=== PATIENT | female | born 1955 | race Caucasian/White ===

== ENCOUNTER 2021-12-20 10:22 | Emergency (ER) | payer MEDICARE, MEDICAID, SELFPAY ==
[2021-12-20 10:36] VITALS: BP 168/94; PULSE 70; RESP 16; TEMP 36.7; O2SAT 94; BMI 37.0
[2021-12-20 10:49] VITALS: BP 168/94; PULSE 67; RESP 16; O2SAT 95
--- NOTE | 2021-12-20 10:49 | XR_ITS ---
WS: [id number] XR ribs LT mn 3V w CXR1V [id number] REASON FOR EXAM: fall FINDINGS: Minimally displaced anterolateral fracture of the left eighth rib. No left pneumothorax or pleural effusion. XR/XR ribs LT mn 3V w CXR1V [id number] IMPRESSION: Left rib fracture as above.
--- NOTE | 2021-12-20 10:49 | XR_ITS ---
WS: [id number] XR foot LT min 3V* [id number] REASON FOR EXAM: fall FINDINGS: No acute fracture or focal bone lesion. Joint spaces intact without dislocation. Changes of osteoarthritis in the forefoot. No significant bony or joint abnormality in the mid or hindfoot. Moderate anterior plantar calcaneal enthesophyte. XR/XR foot LT min 3V* [id number] IMPRESSION: No acute abnormality.
--- NOTE | 2021-12-20 10:49 | W.ED.FALL ---
HPI - Fall General: Chief Complaint: Fall Stated Complaint: Fell down, rt side pain in rib area and rt foot Time Seen by Provider: 12/20/21 10:38 History of Present Illness: Patient presents here with complaints of left rib pain and left big toe pain after a fall that occurred a week and a half ago when she tripped. Patient says just not feeling better. Patient has no other complaints of pain. Associated symptoms-after fall: Denies abdominal pain, chest pain or headache(s) Review of Systems Const: Denies: fever(s), chills or body aches Eyes: Denies: eye discomfort ENMT: Denies: throat pain Card: Denies: chest pain Resp: Denies: dyspnea GI: Denies: abdominal pain, nausea or vomiting Musc: Reports: joint pain and other (Rib pain) Skin/Breast: Denies: rash Neuro: Denies: headache(s) Psych: Denies: depression or suicidal ideation Physical Exam Const: COMMON NORMALS: no acute distress, patient oriented x3 and alert HENMT: COMMON NORMALS: normocephalic and external ears normal HEAD & SCALP: normocephalic EXTERNAL EAR: Yes external ears normal Eye: COMMON NORMALS: EOMs intact bilaterally Neck/C-Spine: COMMON NORMALS: no JVD Chest: OTHER: Tenderness to left rib cage up near the axilla anterior aspect no bruising swelling noted Resp: COMMON NORMALS: normal respiratory effort and No use of accessory muscles Cardio: COMMON NORMALS: no JVD GI: INSPECTION: Yes normal to inspection Extremity: COMMON NORMALS: normal to inspection and full ROM LEFT LOWER EXTREMITY: Yes foot & digits (Tenderness to left #1 metatarsal joint. No swelling bruising noted) Neuro: COMMON NORMALS: patient oriented x3 SENSORIUM/ORIENTATION: Yes alert Psych: COMMON NORMALS: mental status grossly normal Skin: COMMON NORMALS: no rashes or lesions noted GENERAL SKIN EXAM: no rashes or lesions noted Course Vital Signs: Vital signs: Vital Signs Temperature 98.1 F 12/20/21 10:36 Pulse Rate 69 12/20/21 11:37 Respiratory Rate 16 12/20/21 11:37 Blood Pressure 157/86 12/20/21 11:37 Pulse Oximetry 95 12/20/21 11:37 MDM - Fall Medical Decision Making Left rib contusion and left big toe sprain sustained in a fall last week. Radiology studies show mimimally displaced rib 8th fracture. I tried x 3 to call pt, she does not have voicemail set up,. She did not brass pickler call. Lab Data Radiology Impressions Foot X-Ray 12/20/21 10:49 IMPRESSION: No acute abnormality. Ribs X-Ray 12/20/21 10:49 IMPRESSION: Left rib fracture as above. Discharge Plan Discharge Patient Disposition: Home Clinical Impression: Contusion of rib on left side, Sprain of toe, great, left Closed rib fracture Qualifiers: Encounter type: initial encounter Rib fracture type: single rib Laterality: left Qualified Code(s): S22.32XA - Fracture of one rib, left side, initial encounter for closed fracture Condition: Stable Prescriptions: New Celebrex 100 mg capsule 100 mg PO BID Qty: 20 0RF Discharge Orders: Discharge ED (Routine); Ordered 12/20/21 Ordered By: Mukul Mora Discharge Diet: Usual diet Discharge Activity: Increase activity as tolerated Patient Instructions: Rib Fracture (ED) Activity Restrictions/Additional Instructions: Follow-up with medical provider as directed. Take medications as prescribed. Return to the ER or your medical provider if condition worsens. Please read and understand discharge instructions. If any questions ask please. Coding Level of Care Code ED Chenille Machine Operator for Irena Fwtrisha Exam Comprehensive
[2021-12-20 11:37] VITALS: BP 157/86; PULSE 69; RESP 16; O2SAT 95
== END 2021-12-20 11:35 | disposition home or self-care (01) ==
PROVIDERS: Emergency Provider Nurse Practitioner Family
DX: S22.32XA Fracture of one rib, left side, initial encounter for closed fracture (principal); S20.212A Contusion of left front wall of thorax, initial encounter; S93.502A Unspecified sprain of left great toe, initial encounter; W01.0XXA Fall on same level from slipping, tripping and stumbling without subsequent striking against object, initial encounter
CPT/HCPCS: 71101; 73630; 99282

== ENCOUNTER → 2022-05-26 14:07 | Outpatient (BNVA) | payer MEDICARE, MEDICAID, SELFPAY | PROVIDERS: PCP Nurse Practitioner Family; Visit Provider Internal Medicine Cardiovascular Disease | DX: I25.118 Atherosclerotic heart disease of native coronary artery with other forms of angina pectoris (principal); I10 Essential (primary) hypertension; E78.5 Hyperlipidemia, unspecified; R60.9 Edema, unspecified; R06.02 Shortness of breath; Z87.891 Personal history of nicotine dependence; I25.2 Old myocardial infarction; R94.31 Abnormal electrocardiogram [ECG] [EKG] | CPT/HCPCS: 80048; 83880; 93005; 99204; 99205 ==

== ENCOUNTER 2022-06-18 09:43 | Outpatient (CLI) | payer MEDICARE, MEDICAID, SELFPAY ==
--- NOTE | 2022-06-18 10:47 | XR_ITS ---
WS: [id number] XR lumbar spine f/e only [id number] REASON FOR EXAM: VERTEBROGENIC LOW BACK PAIN FINDINGS: Relatively normal lordosis of the lumbar spine. No vertebral body compression or other focal vertebral body lesion. Narrowing of the intervertebral disc spaces L3-S1. Neutral anterolisthesis of L3 in relation to L4 of 3 mm. No significant change with flexion and exten jerry. Significant degenerative change in the facet joints L3-S1. XR/XR lumbar spine f/e only [id number] IMPRESSION: Degenerative spondylosis as above.
== END 2022-06-18 09:44 | disposition home or self-care (01) ==
LOC: RAD 09:45
PROVIDERS: PCP Nurse Practitioner Family; Visit Provider Nurse Practitioner
DX: M54.51 Vertebrogenic low back pain (principal); M47.896 Other spondylosis, lumbar region
CPT/HCPCS: 72120

== ENCOUNTER 2022-07-18 16:42 | Emergency (ER) | payer MEDICARE, MEDICAID, SELFPAY ==
[2022-07-18] VITALS (7 sets, daily range): BP systolic 118–161; BP diastolic 61–65; PULSE 66–84; RESP 15–22; TEMP 36.8–36.9; O2SAT 87–95; BMI 37.2
--- NOTE | 2022-07-18 17:06 | XRR_ITS ---
PROCEDURE INFORMATION: Exam: XR Chest Exam date and time: 07/18/2022 5:25 PM Age: 66 years old Clinical indication: Chest wall pain; Additional info: Chest pain TECHNIQUE: Imaging protocol: Radiologic exam of the chest. Views: 1 view. COMPARISON: CR XR ribs LT mn 3V w CXR1V [id number] 12/20/2021 10:57 AM FINDINGS: Lungs: Unremarkable. No consolidation. Pleural spaces: Unremarkable. No pleural effusion. No pneumothorax. Heart/Mediastinum: Unremarkable. No cardiomegaly. Bones/joints: Unremarkable. XR/XR chest 1V portable [id number] IMPRESSION: No acute findings.
--- NOTE | 2022-07-18 17:06 | ECG_ITS ---
[facility] Test Date: 2022-07-18 Pat Name: Katie Andrews Department: Room: Gender: Female Junior Manufacturing Engineer: : 1955 Requested By: Mik Kearney Order Number: [id number] Dunia MD: Gilbert Maldonado M.D. Measurements Intervals [place] Rate: 66 P: 32 MS: 138 QRS: 17 QRSD: 78 T: 43 QT: 410 QTc: 430 Interpretive Statements SINUS RHYTHM ANTEROSEPTAL MYOCARDIAL INFARCTION , PROBABLY OLD [40+ ms Q WAVE IN V1-V4] No previous ECG available for comparison Electronically Signed On 07-20-2022 22:03:09 CDT by Gilbert Maldonado M.D. [email or web address]/[id number]
--- NOTE | 2022-07-18 17:28 | W.ED.CHESTPA ---
HPI - Chest Pain General: Chief Complaint: Chest Pain Stated Complaint: Chest Pain Time Seen by Provider: 07/18/22 17:13 History of Present Illness: Patient is a 66-year-old female comes to the ED with chest pain. Patient has a history of hypertension, dyslipidemia, COPD and prior NM about a year ago and a cardiac stent was placed. Patient is not on any home oxygen. Symptoms started initially while at rest 3:00 this morning. She states the chest pain resolved on its own. Then in the early afternoon she developed chest pain while she was sitting outside and drinking a beer. She took a nitro around 1400 today and improve the chest pain a little bit, so she took another nitro at 1500 and her chest pain is now currently a 4 out of 10. She describes it as an aching in the center of her chest. She also endorses having some shortness of breath. Patient saw telegraphic typewriter repairer Dr. Archer on May 26, 2022 and has an outpatient appointment to get a cardiac stress test done on July 28. Associated symptoms: Reports dyspnea; Deny abdominal pain, fever(s), nausea, palpitations or vomiting Review of Systems Const: Denies: fever(s), chills or fatigue Eyes: Denies: change in vision or eye discomfort ENMT: Denies: throat pain, odynophagia, nasal discharge or nasal congestion Card: Reports: chest pain; Denies: palpitations, edema, swelling of feet/ankles, dyspnea on exertion or orthopnea Resp: Reports: dyspnea; Denies: productive cough or non-productive cough GI: Denies: abdominal pain, nausea, vomiting, diarrhea, constipation or hematochezia : Denies: flank pain, dysuria or hematuria Musc: Denies: neck pain, back pain or extremity swelling Skin/Breast: Denies: rash or new lesions Neuro: Denies: headache(s), numbness in extremities or weakness in extremities PFS ED PFSH: Medical History CAD (coronary artery disease) COPD (chronic obstructive pulmonary disease) Hypertension Peripheral edema Surgical History History of PTCA Family History Father CAD (coronary artery disease), Onset Age: 46 NM Cancer Dementia Diabetes Mother CAD (coronary artery disease), Onset Age: 82 Diabetes Denies family history of Clotting disorder Chronic kidney disease (CKD) Suicide Anesthesia complication Bleeding disorder Lung disease Stroke Social History Smoking and tobacco status: former smoker Alcohol intake: former Physical Exam Const: COMMON NORMALS: patient oriented x3 and alert GENERAL APPEARANCE: cooperative HENMT: COMMON NORMALS: normocephalic HEAD & SCALP: normocephalic MOUTH: Normal oral and palatal mucosa present THROAT: posterior oropharynx normal and uvula midline Neck/C-Spine: COMMON NORMALS: supple GENERAL: Yes normal visual inspection Resp: COMMON NORMALS: normal respiratory effort, No retractions and No use of accessory muscles AUSCULTATION: wheezes expiratory wheezes and throughout Cardio: COMMON NORMALS: regular rate, regular rhythm, S1 normal heart sound present, S2 normal heart sound present, No gallops present (Cardio), No clicks present (Cardio), No murmurs present (Cardio) and Peripheral pulses 2+ throughout RATE: regular rate RHYTHM: regular rhythm HEART SOUNDS: S1 normal heart sound present and S2 normal heart sound present PERIPHERAL PULSES: Peripheral pulses 2+ throughout GI: COMMON NORMALS: Normal to inspection, nondistended, normoactive bowel sounds present, Soft to palpation, non-tender and no masses PALPATION: Yes Soft to palpation : COMMON NORMALS: Yes no CVA tenderness BLADDER/KIDNEY EXAM: Yes no CVA tenderness Back/Pelvis: COMMON NORMALS: no CVA tenderness Extremity: COMMON NORMALS: normal to inspection NARRATIVE EXTREMITY EXAM: Bilateral lower extremities?trace edema noted. Neuro: COMMON NORMALS: patient oriented x3 SENSORIUM/ORIENTATION: Yes alert GAIT: Yes Normal gait present Skin: GENERAL SKIN EXAM: dry skin Course ED course: After patient received IV morphine, her chest pain had completely resolved. She had no other reoccurring chest pain here in the ED. Vital Signs: Vital signs: Vital Signs Temperature 98.2 F 07/18/22 22:39 Pulse Rate 66 07/18/22 22:39 Respiratory Rate 16 07/18/22 22:39 Blood Pressure 118/61 07/18/22 22:39 Pulse Oximetry 94 07/18/22 22:39 Oxygen Delivery Me thod 07/18/22 22:20 Oxygen Flow Rate 2 07/18/22 22:20 MDM - Chest Pain Medical Decision Making Patient is a 66-year-old female comes to the ED with chest pain. Patient has a history of hypertension, dyslipidemia, COPD and prior NM about a year ago and a cardiac stent was placed. Patient is not on any home oxygen. Symptoms started initially while at rest 3:00 this morning. She states the chest pain resolved on its own. Then in the early afternoon she developed chest pain while she was sitting outside and drinking a beer. She took a nitro around 1400 today and improve the chest pain a little bit, so she took another nitro at 1500 and her chest pain is now currently a 4 out of 10. Patient was on 2 L of O2 via nasal cannula and her O2 sat was at 95%. Rest of her vitals were stable. Wheezing throughout lung cameron bilaterally. Trace edema lower extremities bilaterally. Rest of her exam is benign. White blood cell count of 14.4, baseline troponin 14 and 2-hour troponin was 13.9 giving a -0.09 delta. BNP of 1432. D-dimer of 0.4. The rest of her labs are unremarkable. EKG showed no ST segment elevation or depression seen. Chest x-ray showed no acute findings. She was given a dose of Solu-Medrol Lasix and DuoNeb breathing treatment here in the ED. Patient has a heart score of 4. After patient received IV morphine, her chest pain had completely resolved. She had no other reoccurring chest pain here in the ED. Home O2 eval was performed by respiratory therapy and she qualified for 2 L of oxygen via nasal cannula continuously. I placed an order with home to get patient set up with oxygen before discharge. I discussed case with Dr. Bush and he agreed with plan of care and dispo home. Patient diagnosed with chest pain and COPD with hypoxia. She has a scheduled outpatient cardiac stress test on July 28. She was given strict return to ED precautions if she has any reoccurring chest pain. Patient understood and agreed with plan. Lab Data I reviewed the patient's lab results. : 07/18/22 18:05 07/18/22 18:05 Radiology Impressions Chest X-Ray 07/18/22 17:06 IMPRESSION: No acute findings. Laboratory Results WBC 14.4 10^3/uL (4.0-10.0) H 07/18/22 18:05 RBC 3.82 10^6/uL (4.1-5.3) L 07/18/22 18:05 Hgb 11.8 g/dL (11.5-15.3) 07/18/22 18:05 Hct 36.6 % (37.0-47.0) L 07/18/22 18:05 MCV 95.8 fl (81-99) 07/18/22 18:05 MCH 30.9 pg (28.0-34.0) 07/18/22 18:05 MCHC 32.2 g/dL (30.0-36.0) 07/18/22 18:05 RDW 13.9 % (12.1-15.1) 07/18/22 18:05 Plt Count 254 10^3/cmm (130-400) 07/18/22 18:05 MPV 10.2 fL (7.4-10.4) 07/18/22 18:05 Neut % (Auto) 77.0 % 07/18/22 18:05 Lymph % (Auto) 12.5 % 07/18/22 18:05 [place] % (Auto) 8.5 % 07/18/22 18:05 Eos % (Auto) 1.0 % 07/18/22 18:05 Baso % (Auto) 0.4 % 07/18/22 18:05 Neut # (Auto) 11.09 10^3/uL (1.8-7.7) H 07/18/22 18:05 Lymph # (Auto) 1.8 10^3/uL (0.8-4.8) 07/18/22 18:05 [place] # (Auto) 1.2 10^3/uL (0.2-0.9) H 07/18/22 18:05 Eos # (Auto) 0.1 10^3/uL (0.0-0.8) 07/18/22 18:05 Baso # (Auto) 0.1 10^3/uL (0.0-0.1) 07/18/22 18:05 Nucleated RBC % (auto) 0 % 07/18/22 18:05 Nucleated RBCs # 0.0 /100WBC 07/18/22 18:05 D-Dimer 0.40 ug/mIFEU (0-0.59) 07/18/22 18:05 Sodium 134 mmol/L (136-145) L 07/18/22 18:05 Potassium 3.8 mmol/L (3.5-5.1) 07/18/22 18:05 Chloride 97 mmol/L (98-107) L 07/18/22 18:05 Carbon Dioxide 29 mmol/L (22-29) 07/18/22 18:05 Anion Gap 11.8 (5-19) 07/18/22 18:05 BUN 25 mg/dL (8-23) H 07/18/22 18:05 Creatinine 1.5 mg/dL (0.5-0.9) H 07/18/22 18:05 GFR Calculation 35.0 mL/min (90-130) L 07/18/22 18:05 Glucose 123 mg/dL (65-115) H 07/18/22 18:05 Calculated Osmolality 284 mOsm/kg (285-295) L 07/18/22 18:05 Calcium 9.6 mg/dL (8.5-10.5) 07/18/22 18:05 Total Bilirubin 0.4 mg/dL (0.15-1.2) 07/18/22 18:05 AST 19 U/L (0-32) 07/18/22 18:05 ALT 21 U/L (0-33) 07/18/22 18:05 Alkaline Phosphatase 67 U/L (35-105) 07/18/22 18:05 Troponin T Baseline 14 ng/L (0-10) H 07/18/22 18:05 Troponin T 120 Minute 13.91 ng/L (0-10) H 07/18/22 20:41 Delta Troponin T -0.09 ABS# (0-10) L 07/18/22 20:41 NT-Pro-B Natriuret Pep 1432 pg/mL (0-125) H 07/18/22 18:05 Total Protein 7.3 g/dL (6.6-8.7) 07/18/22 18:05 Albumin 4.3 g/dL (3.5-5.2) 07/18/22 18:05 Globulin 3.0 g/dL (1.3-4.6) 07/18/22 18:05 EKG Data EKG 1: EKG interpretation date: 07/18/22 Interpretation: Sinus rhythm, 68 bpm, no ST segment elevation or depression seen. Discharge Plan Discharge Patient Disposition: Home Clinical Impression: COPD with hypoxia Chest pain Qualifiers: Chest pain type: unspecified Qualified Code(s): R07.9 - Chest pain, unspecified Condition: Stable Prescriptions: New furosemide 40 mg tablet 40 mg PO DAILY Qty: 20 0RF potassium chloride 8 mEq capsule, extended release 8 meq PO DAILY Qty: 20 0RF Continued potassium chloride 8 mEq tablet extended release 8 meq PO DAILY Qty: 30 3RF furosemide 40 mg tablet 40 mg PO DAILY Qty: 30 3RF No Action Eliquis 5 mg tablet 5 mg PO BID lisinopril 5 mg tablet 5 mg PO DAILY isosorbide mononitrate 60 mg tablet extended release 24 hr 60 mg PO DAILY aripiprazole 15 mg tablet 15 mg PO DAILY metoprolol succinate 25 mg tablet extended release 24 hr 25 mg PO DAILY sertraline 100 mg tablet 100 mg PO DAILY atorvastatin 80 mg tablet 80 mg PO DAILY Brilinta 90 mg tablet 90 mg PO BID Odefsey 200-25-25 mg tablet 1 tab PO DAILY cetirizine 10 mg tablet 10 mg PO DAILY nitroglycerin 0.4 mg tablet, sublingual 0.4 mg sublingual Q5M PRN (Reason: chest pain) meloxicam 15 mg tablet 15 mg PO DAILY fenofibrate nanocrystallized 145 mg tablet 145 mg PO DAILY albuterol sulfate 90 mcg/actuation HFA aerosol inhaler 1 puff inhalation Q6H PRN (Reason: shortness of breath or wheezing) Trelegy Ellipta 100-62.5-25 mcg blister with device 1 inh inhalation DAILY Discharge Orders: Discharge ED (Routine); Ordered 07/18/22 Ordered By: Toribio Boucher Other Ambulatory Orders: DME: Oxygen (Order) Location: None Selected Ordered By: Toribio Boucher Referrals: Aleida Khan APN [Primary Care Provider] - Discharge Diet: Regular Discharge Activity: Increase activity as tolerated and Oxygen as instructed Patient Instructions: Chest Pain (ED), Using Oxygen at Home (ED), COPD (Chronic Obstructive Pulmonary Disease) (DC) Activity Restrictions/Additional Instructions: Follow-up with medical provider as directed in the next 3 to 5 days for reevaluation. Use home oxygen at 2 L continuously to help with your shortness of breath. Continue taking all home medications as prescribed. Follow-up with telegraphic typewriter repairer at your next scheduled appointment on July 28. Return to the ER or your medical provider if condition worsens. Please read and understand discharge instructions. Thank you for choosing [facility] for your healthcare needs today. Please realize this is an emergency room and that we are providing you with a medical screening exam and this may not be complete and all inclusive of all the testing and or work up that you may need to determine your ailment or severity of your illness. It is very important that you follow up as instructed or that you return to the Emergency Department should you have concerns or if your condition changes or worsens in any way. Coding Level of Care Code ED Squad Leader for Irena Fwd Exam Comprehensive
[2022-07-18] MEDS: ondansetron 2 mg/ML SDV 2 mL 4 MG IVP (17:50)
[2022-07-18] MEDS: morphine 4 mg/mL SDV 1 mL IVP (17:50)
[2022-07-18 18:13] LABS: Basophils # 0.1 10^3/uL (0.0-0.1); Basophils % 0.4 %; Eosinophils # 0.1 10^3/uL (0.0-0.8); Hematocrit 36.6 % (37.0-47.0); Hemoglobin 11.8 g/dL (11.5-15.3); Lymphocytes # 1.8 10^3/uL (0.8-4.8); Lymphocytes % 12.5 %; Mean Corpuscular HGB Conc 32.2 g/dL (30.0-36.0); Mean Corpuscular Hemoglobin 30.9 pg (28.0-34.0); Mean Corpuscular Volume 95.8 fl (81-99); Mean Platelet Volume 10.2 fL (7.4-10.4); Monocytes # 1.2 10^3/uL (0.2-0.9); Monocytes % 8.5 %; Neutrophils # 11.09 10^3/uL (1.8-7.7); Nucleated Red Blood Cells % 0 %; Platelet Count 254 10^3/cmm (130-400); Red Blood Count 3.82 10^6/uL (4.1-5.3); Red Cell Distribution Width 13.9 % (12.1-15.1); White Blood Count 14.4 10^3/uL (4.0-10.0)
[2022-07-18 18:39] LABS: Troponin(5th) Baseline 14 ng/L (0-10)
[2022-07-18 18:50] LABS: Alanine Aminotransferase 21 U/L (0-33); Albumin Level 4.3 g/dL (3.5-5.2); Alkaline Phosphatase 67 U/L (35-105); Anion Gap 11.8 (5-19); Aspartate Amino Transferase 19 U/L (0-32); Blood Urea Nitrogen 25 mg/dL (8-23); Calcium 9.6 mg/dL (8.5-10.5); Carbon Dioxide 29 mmol/L (22-29); Chloride 97 mmol/L (98-107); Glucose 123 mg/dL (65-115); NT Pro B Type Natriuretic Pept 1432 pg/mL (0-125); Osmolality Calculated 284 mOsm/kg (285-295); Potassium 3.8 mmol/L (3.5-5.1); Sodium 134 mmol/L (136-145); Total Bilirubin 0.4 mg/dL (0.15-1.2); Total Protein 7.3 g/dL (6.6-8.7)
--- NOTE | 2022-07-18 19:02 | ECG_ITS ---
[facility] Test Date: 2022-07-18 Pat Name: Katie Andrews Department: Room: Gender: Female Health Claims Examiner: : 1955 Requested By: Mik Kearney Order Number: [id number] Dunia MD: Gilbert Maldonado M.D. Measurements Intervals [place] Rate: 71 P: 86 [place]: 142 QRS: 12 QRSD: 77 T: 28 QT: 385 QTc: 421 Interpretive Statements SINUS RHYTHM ANTEROSEPTAL MYOCARDIAL INFARCTION , PROBABLY OLD [40+ ms Q WAVE IN V1-V4] Compared to ECG 07/18/2022 17:40:55 No significant changes Electronically Signed On 07-20-2022 22:11:41 CDT by Gilbert Maldonado M.D. [email or web address] [email or web address]/store/[id number]
[2022-07-18] MEDS: ipratropium-albuterol 3 mL Neb 6 ML INHALATION (19:20)
[2022-07-18 21:31] LABS: Troponin 5 2HR 13.91 ng/L (0-10)
[2022-07-18 21:33] LABS: Troponin 5 2HR Delta -0.09 ABS# (0-10)
[2022-07-18] MEDS: FUROsemide 10 mg/mL SDV 2mL 20 MG IVP (22:16)
--- NOTE | 2022-07-18 23:06 | ECG_ITS ---
[facility] Test Date: 2022-07-18 Pat Name: Katie Andrews Department: Room: Gender: Female Branch Customer Service Representative: : 1955 Requested By: Mik Kearney Order Number: [id number] Dunia MD: Gilbert Maldonado M.D. Measurements Intervals [place] Rate: 68 P: 80 [place]: 132 QRS: 15 QRSD: 78 T: 30 QT: 410 QTc: 436 Interpretive Statements SINUS RHYTHM SEPTAL MYOCARDIAL INFARCTION , PROBABLY OLD [40+ ms Q WAVE IN V1/V2] No previous ECG available for comparison Electronically Signed On 07-20-2022 22:12:07 CDT by Gilbert Maldonado M.D. [email or web address] memorial hospitalGlobal Axcessavita health system [facility].Meridian/store/NU/[id number] f
== END 2022-07-19 00:18 | disposition home or self-care (01) ==
PROVIDERS: Emergency Medicine; Emergency Provider Physician Assistant; PCP Nurse Practitioner Family
DX: J44.9 Chronic obstructive pulmonary disease, unspecified (principal); R09.02 Hypoxemia; R07.9 Chest pain, unspecified; Z79.01 Long term (current) use of anticoagulants; I25.10 Atherosclerotic heart disease of native coronary artery without angina pectoris; I10 Essential (primary) hypertension; Z87.891 Personal history of nicotine dependence
CPT/HCPCS: 36415; 71045; 80053; 83880; 84484; 85025; 85378; 93005; 94640; 96374; 96375; 99285; J1940; J2270; J2405; J2930

== ENCOUNTER 2022-07-26 04:59 | Emergency (ER) | payer MEDICARE, MEDICAID, SELFPAY ==
[2022-07-26 05:05] VITALS: BP 219/112; PULSE 78; RESP 18; O2SAT 94; BMI 38.2
--- NOTE | 2022-07-26 05:07 | XRR_ITS ---
PROCEDURE INFORMATION: Exam: XR Chest Exam date and time: 07/26/2022 5:11 AM Age: 66 years old Clinical indication: Chest pressure; Prior surgery; Surgery type: Cardiac stents; Patient HX: C/O chest pain. History of copd. ; Additional info: Cp TECHNIQUE: Imaging protocol: Radiologic exam of the chest. Views: 1 view. COMPARISON: CR (CHEST, ) 07/18/2022 5:25 PM FINDINGS: Lungs: There are small lung volumes with mild accentuation of the pulmonary vascularity. There are no confluent interstitial or airspace opacities. Pleural spaces: There are no pleural effusions or pneumothorax. Heart/Mediastinum: The heart size is normal. There is a mildly tortuous thoracic aorta. The trachea is in the midline. Bones/joints: No acute abnormalities. Small degenerative osteophytes are seen throughout the thoracic spine. XR/XR chest 1V portable [id number] IMPRESSION: Small lung volumes with mild accentuation of the pulmonary vascularity. No confluent infiltrates in the lungs.
--- NOTE | 2022-07-26 05:13 | ECG_ITS ---
[facility] Test Date: 2022-07-26 Pat Name: Katie Andrews Department: Room: Gender: Female Digital Sales Executive: : 1955 Requested By: Aldair Rooney Order Number: [id number] Dunia MD: Pat Markham M.D. Measurements Intervals [place] Rate: 61 P: 80 [place]: 137 QRS: 38 QRSD: 78 T: 58 QT: 431 QTc: 436 Interpretive Statements SINUS RHYTHM WITH SINUS ARRHYTHMIA SEPTAL MYOCARDIAL INFARCTION , PROBABLY OLD [40+ ms Q WAVE IN V1/V2] Compared to ECG 07/18/2022 19:02:30 No significant changes Electronically Signed On 07-28-2022 23:05:12 CDT by Pat Markham M.D. [id number]
--- NOTE | 2022-07-26 05:38 | W.ED.CHESTPA ---
Documented by User: Aldair Gee DO 07/26/22 20:04 HPI - Chest Pain General: Chief Complaint: Chest Pain Stated Complaint: Chest Pains\Dizzy Time Seen by Provider: 07/26/22 05:07 Source: patient History of Present Illness: 66-year-old female with a history of coronary disease and COPD. She is on antibiotics currently for bronchitis . She presents after waking up with chest discomfort. She notes that she had terrible dreams about being raped, and woke up with chest discomfort and shortness of breath, feeling awful. She took nitroglycerin at home, which essentially resolved the chest pain, but now has a headache. She is very anxious on exam. MD complaint: chest pain Pertinent past history: coronary artery disease and other Onset (ago): hour(s) Timing of current episode: constant Prior episodes: Yes Onset: during rest Pain location: substernal Quality: aching Relieving factors: nitroglycerin Exacerbating factors: inspiration and stress Associated symptoms: Reports dyspnea, nausea and palpitations; Deny abdominal pain, fever(s) or vomiting Review of Systems Const: Denies: fever(s), chills or body aches Eyes: Denies: change in vision ENMT: Reports: throat pain Card: Reports: chest pain and palpitations Resp: Reports: dyspnea and wheezing; Denies: productive cough or non-productive cough GI: Reports: nausea; Denies: abdominal pain, vomiting, diarrhea or hematochezia : Denies: difficulty voiding Skin/Breast: Denies: rash Neuro: Denies: headache(s), weakness in extremities, dizziness or confusion PFSH ED PFSH: Medical History CAD (coronary artery disease) COPD (chronic obstructive pulmonary disease) Hypertension Peripheral edema Surgical History History of PTCA Family History Father CAD (coronary artery disease), Onset Age: 46 [place] Cancer Dementia Diabetes Mother CAD (coronary artery disease), Onset Age: 82 Diabetes Denies family history of Clotting disorder Chronic kidney disease (CKD) Suicide Anesthesia complication Bleeding disorder Lung disease Stroke Social History Smoking and tobacco status: former smoker Alcohol intake: former Physical Exam Const: GENERAL APPEARANCE: cooperative and anxious; not ill appearing HENMT: COMMON NORMALS: normocephalic, atraumatic and Normal external nose present HEAD & SCALP: normocephalic and atraumatic FACE & SINUS: normal facial exam and face symmetric NOSE: Normal external nose present Eye: COMMON NORMALS: Equal, round and reactive pupils present and EOMs intact bilaterally PUPIL: Yes Equal, round and reactive pupils present Neck/C-Spine: GENERAL: Yes trachea midline Chest: CHEST: Yes Symmetrical chest wall rise Resp: COMMON NORMALS: normal respiratory effort, No retractions, No use of accessory muscles and clear to auscultation bilaterally AUSCULTATION: clear to auscultation bilaterally Cardio: COMMON NORMALS: regular rate and regular rhythm RATE: regular rate RHYTHM: regular rhythm GI: COMMON NORMALS: Normal to inspection, nondistended, normoactive bowel sounds present Extremity: COMMON NORMALS: no pedal edema Neuro: HARLAN COMA SCALE: document GCS findings [place]lan coma scale eye opening: Spontaneous [place]lan coma scale verbal response: Orientated [place] coma scale motor response: Obey commands Harlan coma scale total score: 15 SENSORY EXAM: Yes extremities (intact) Psych: COMMON NORMALS: speech normal SPEECH: Yes normal speech Skin: COMMON NORMALS: no rashes or lesions noted GENERAL SKIN EXAM: no rashes or lesions noted Course Vital Signs: Vital signs: Vital Signs Pulse Rate 95 07/26/22 09:34 Respiratory Rate 19 H 07/26/22 07:33 Blood Pressure 153/99 07/26/22 09:34 Pulse Oximetry 95 07/26/22 09:34 Oxygen Delivery Me thod 07/26/22 08:15 Oxygen Flow Rate 2 07/26/22 08:15 MDM - Chest Pain Medical Decision Making 66-year-old female with a history of coronary disease. She evidently has 1 stent. She awoke from a bad dream with chest discomfort. She is quite anxious on exam. She is hypertensive. She has had a couple episodes of bradycardia on the monitor, but these have resolved after some morphine and Versed for anxiety. Her blood pressures 174/90 currently. She was quite hypertensive on arrival. EKG shows a sinus rhythm with sinus arrhythmia. Mosby is normal. Intervals are normal. Rate is [address] changes. Her first troponin is 14. Second is pending. Lab Data : 07/26/22 05:35 07/26/22 05:35 Radiology Impressions Chest X-Ray 07/26/22 05:07 IMPRESSION: Small lung volumes with mild accentuation of the pulmonary vascularity. No confluent infiltrates in the lungs. Laboratory Results WBC 11.5 10^3/uL (4.0-10.0) H 07/26/22 05:35 RBC 4.14 10^6/uL (4.1-5.3) 07/26/22 05:35 Hgb 12.5 g/dL (11.5-15.3) 07/26/22 05:35 Hct 39.7 % (37.0-47.0) 07/26/22 05:35 MCV 95.9 fl (81-99) 07/26/22 05:35 MCH 30.2 pg (28.0-34.0) 07/26/22 05:35 MCHC 31.5 g/dL (30.0-36.0) 07/26/22 05:35 RDW 14.4 % (12.1-15.1) 07/26/22 05:35 Plt Count 308 10^3/cmm (130-400) 07/26/22 05:35 MPV 9.9 fL (7.4-10.4) 07/26/22 05:35 Neut % (Auto) 80.0 % 07/26/22 05:35 Lymph % (Auto) 9.9 % 07/26/22 05:35 [place] % (Auto) 7.3 % 07/26/22 05:35 Eos % (Auto) 1.4 % 07/26/22 05:35 Baso % (Auto) 0.3 % 07/26/22 05:35 Neut # (Auto) 9.16 10^3/uL (1.8-7.7) H 07/26/22 05:35 Lymph # (Auto) 1.1 10^3/uL (0.8-4.8) 07/26/22 05:35 [place] # (Auto) 0.8 10^3/uL (0.2-0.9) 07/26/22 05:35 Eos # (Auto) 0.2 10^3/uL (0.0-0.8) 07/26/22 05:35 Baso # (Auto) 0.0 10^3/uL (0.0-0.1) 07/26/22 05:35 Nucleated RBC % (auto) 0 % 07/26/22 05:35 Nucleated RBCs # 0.0 /100WBC 07/26/22 05:35 PT 12.70 SECONDS (12.1-14.9) 07/26/22 05:35 INR 0.92 (0.8-1.2) 07/26/22 05:35 APTT 27.2 SECONDS (23.9-36.7) 07/26/22 05:35 Sodium 140 mmol/L (136-145) 07/26/22 05:35 Potassium 4.1 mmol/L (3.5-5.1) 07/26/22 05:35 Chloride 104 mmol/L (98-107) 07/26/22 05:35 Carbon Dioxide 27 mmol/L (22-29) 07/26/22 05:35 Anion Gap 13.1 (5-19) 07/26/22 05:35 BUN 16 mg/dL (8-23) 07/26/22 05:35 Creatinine 1.1 mg/dL (0.5-0.9) H 07/26/22 05:35 GFR Calculation 50.0 mL/min (90-130) L 07/26/22 05:35 Glucose 155 mg/dL (65-115) H 07/26/22 05:35 Calculated Osmolality 294 mOsm/kg (285-295) 07/26/22 05:35 Calcium 9.2 mg/dL (8.5-10.5) 07/26/22 05:35 Total Bilirubin 0.3 mg/dL (0.15-1.2) 07/26/22 05:35 AST 16 U/L (0-32) 07/26/22 05:35 ALT 22 U/L (0-33) 07/26/22 05:35 Alkaline Phosphatase 74 U/L (35-105) 07/26/22 05:35 Troponin T Baseline 14 ng/L (0-10) H 07/26/22 05:35 Troponin T 120 Minute 13.55 ng/L (0-10) H 07/26/22 07:35 Delta Troponin T -0.45 ABS# (0-10) L 07/26/22 07:35 NT-Pro-B Natriuret Pep 788 pg/mL (0-125) H 07/26/22 05:35 Total Protein 7.9 g/dL (6.6-8.7) 07/26/22 05:35 Albumin 3.9 g/dL (3.5-5.2) 07/26/22 05:35 Globulin 4.0 g/dL (1.3-4.6) 07/26/22 05:35 Discharge Plan Discharge Patient Disposition: Home Clinical Impression: Chest pain, COPD with hypoxia, Benign essential HTN, Atherosclerotic heart disease of beaver coronary artery with other forms of angina pectoris Condition: Stable Prescriptions: Changed isosorbide mononitrate 60 mg tablet extended release 24 hr 90 mg PO DAILY Qty: 45 0RF No Action Eliquis 5 mg tablet 5 mg PO BID lisinopril 5 mg tablet 5 mg PO DAILY aripiprazole 15 mg tablet 15 mg PO DAILY metoprolol succinate 25 mg tablet extended release 24 hr 25 mg PO DAILY sertraline 100 mg tablet 100 mg PO DAILY atorvastatin 80 mg tablet 80 mg PO DAILY Brilinta 90 mg tablet 90 mg PO BID Odefsey 200-25-25 mg tablet 1 tab PO DAILY cetirizine 10 mg tablet 10 mg PO DAILY nitroglycerin 0.4 mg tablet, sublingual 0.4 mg sublingual Q5M PRN (Reason: chest pain) meloxicam 15 mg tablet 15 mg PO DAILY fenofibrate nanocrystallized 145 mg tablet 145 mg PO DAILY albuterol sulfate 90 mcg/actuation HFA aerosol inhaler 1 puff inhalation Q6H PRN (Reason: shortness of breath or wheezing) Trelegy Ellipta 100-62.5-25 mcg blister with device 1 inh inhalation DAILY potassium chloride 8 mEq tablet extended release 16 meq PO DAILY Qty: 180 3RF furosemide 40 mg tablet 40 mg PO DAILY Qty: 20 0RF Discharge Orders: Discharge ED (Routine); Ordered 07/26/22 Ordered By: Jeffy Vogel Referrals: Aleida Khan APN [Primary Care Provider] - Discharge Diet: Usual diet Discharge Activity: Limit activity as instructed Patient Instructions: Opioid Safety, Pain Management Activity Restrictions/Additional Instructions: You were seen today for chest pain. Your cardiac enzymes and EKG were negative. Recommend that you increase your isosorbide mononitrate to 90 mg (1-1/2 tablets) daily. Additionally you should use your oxygen 24 hours a day at 2 L/min. Continue all of your other previously prescribed medications. While you are in the ER this morning you were given Lasix lisinopril and metoprolol and isosorbide mononitrate for your morning doses and should not repeat those this morning but should resume your regularly scheduled medicines throughout the remainder of the day. Other medications that you usually take in the morning not listed above were not given and you should take those when you return home. Keep the appointment for the cardiac stress test that you have in 2 days. If you have worsening chest pain you should return to the emergency room. Avoid all exertional activity. Sign Out Sign Out Data: Patient Sign Out occurred on 07/26/22 at 07:13. Patient's care was discussed, and care was transferred from to Jeffy Vogel DO. Coding Level of Care Code ED Service Crew Supervisor for Chg Fwd Exam Comprehensive Documented by User: Jeffy Vogel DO 08/05/22 10:32 HPI - Chest Pain General: Chief Complaint: Chest Pain Stated Complaint: Chest Pains\Dizzy Time Seen by Provider: 07/26/22 05:07 [facility] ED PFSH: Medical History CAD (coronary artery disease) COPD (chronic obstructive pulmonary disease) Hypertension Peripheral edema Surgical History History of PTCA Family History Father CAD (coronary artery disease), Onset Age: 46 [place] Cancer Dementia Diabetes Mother CAD (coronary artery disease), Onset Age: 82 Diabetes Denies family history of Clotting disorder Chronic kidney disease (CKD) Suicide Anesthesia complication Bleeding disorder Lung disease Stroke Social History Smoking and tobacco status: former smoker Alcohol intake: former Physical Exam Neuro: HARLNA COMA SCALE: document GCS findings [place] coma scale total score: 15 Course Vital Signs: Vital signs: Vital Signs Pulse Rate 95 07/26/22 09:34 Respiratory Rate 19 H 07/26/22 07:33 Blood Pressure 153/99 07/26/22 09:34 Pulse Oximetry 95 07/26/22 09:34 Oxygen Delivery Me thod 07/26/22 08:15 Oxygen Flow Rate 2 07/26/22 08:15 MDM - Chest Pain Medical Decision Making 66-year-old female with a history of coronary disease. She evidently has 1 stent. She awoke from a bad dream with chest discomfort. She is quite anxious on exam. She is hypertensive. She has had a couple episodes of bradycardia on the monitor, but these have resolved after some morphine and Versed for anxiety. Her blood pressures 174/90 currently. She was quite hypertensive on arrival. EKG shows a sinus rhythm with sinus arrhythmia. Mosby is normal. Intervals are normal. Rate is [address] changes. Her first troponin is 14. Second is pending. Troponin is unremarkable. We will go ahead and discharge patient home on isosorbide mononitrate set up for an outpatient stress testing. Lab Data : 07/26/22 05:35 07/26/22 05:35 Radiology Impressions Chest X-Ray 07/26/22 05:07 IMPRESSION: Small lung volumes with mild accentuation of the pulmonary vascularity. No confluent infiltrates in the lungs. Laboratory Results WBC 11.5 10^3/uL (4.0-10.0) H 07/26/22 05:35 RBC 4.14 10^6/uL (4.1-5.3) 07/26/22 05:35 Hgb 12.5 g/dL (11.5-15.3) 07/26/22 05:35 Hct 39.7 % (37.0-47.0) 07/26/22 05:35 MCV 95.9 fl (81-99) 07/26/22 05:35 MCH 30.2 pg (28.0-34.0) 07/26/22 05:35 MCHC 31.5 g/dL (30.0-36.0) 07/26/22 05:35 RDW 14.4 % (12.1-15.1) 07/26/22 05:35 Plt Count 308 10^3/cmm (130-400) 07/26/22 05:35 MPV 9.9 fL (7.4-10.4) 07/26/22 05:35 Neut % (Auto) 80.0 % 07/26/22 05:35 Lymph % (Auto) 9.9 % 07/26/22 05:35 [place] % (Auto) 7.3 % 07/26/22 05:35 Eos % (Auto) 1.4 % 07/26/22 05:35 Baso % (Auto) 0.3 % 07/26/22 05:35 Neut # (Auto) 9.16 10^3/uL (1.8-7.7) H 07/26/22 05:35 Lymph # (Auto) 1.1 10^3/uL (0.8-4.8) 07/26/22 05:35 [place] # (Auto) 0.8 10^3/uL (0.2-0.9) 07/26/22 05:35 Eos # (Auto) 0.2 10^3/uL (0.0-0.8) 07/26/22 05:35 Baso # (Auto) 0.0 10^3/uL (0.0-0.1) 07/26/22 05:35 Nucleated RBC % (auto) 0 % 07/26/22 05:35 Nucleated RBCs # 0.0 /100WBC 07/26/22 05:35 PT 12.70 SECONDS (12.1-14.9) 07/26/22 05:35 INR 0.92 (0.8-1.2) 07/26/22 05:35 APTT 27.2 SECONDS (23.9-36.7) 07/26/22 05:35 Sodium 140 mmol/L (136-145) 07/26/22 05:35 Potassium 4.1 mmol/L (3.5-5.1) 07/26/22 05:35 Chloride 104 mmol/L (98-107) 07/26/22 05:35 Carbon Dioxide 27 mmol/L (22-29) 07/26/22 05:35 Anion Gap 13.1 (5-19) 07/26/22 05:35 BUN 16 mg/dL (8-23) 07/26/22 05:35 Creatinine 1.1 mg/dL (0.5-0.9) H 07/26/22 05:35 GFR Calculation 50.0 mL/min (90-130) L 07/26/22 05:35 Glucose 155 mg/dL (65-115) H 07/26/22 05:35 Calculated Osmolality 294 mOsm/kg (285-295) 07/26/22 05:35 Calcium 9.2 mg/dL (8.5-10.5) 07/26/22 05:35 Total Bilirubin 0.3 mg/dL (0.15-1.2) 07/26/22 05:35 AST 16 U/L (0-32) 07/26/22 05:35 ALT 22 U/L (0-33) 07/26/22 05:35 Alkaline Phosphatase 74 U/L (35-105) 07/26/22 05:35 Troponin T Baseline 14 ng/L (0-10) H 07/26/22 05:35 Troponin T 120 Minute 13.55 ng/L (0-10) H 07/26/22 07:35 Delta Troponin T -0.45 ABS# (0-10) L 07/26/22 07:35 NT-Pro-B Natriuret Pep 788 pg/mL (0-125) H 07/26/22 05:35 Total Protein 7.9 g/dL (6.6-8.7) 07/26/22 05:35 Albumin 3.9 g/dL (3.5-5.2) 07/26/22 05:35 Globulin 4.0 g/dL (1.3-4.6) 07/26/22 05:35 Discharge Plan Discharge Patient Disposition: Home Clinical Impression: Chest pain, COPD with hypoxia, Benign essential HTN, Atherosclerotic heart disease of [place] coronary artery with other forms of angina pectoris Condition: Stable Prescriptions: Changed isosorbide mononitrate 60 mg tablet extended release 24 hr 90 mg PO DAILY Qty: 45 0RF No Action Eliquis 5 mg tablet 5 mg PO BID lisinopril 5 mg tablet 5 mg PO DAILY aripiprazole 15 mg tablet 15 mg PO DAILY metoprolol succinate 25 mg tablet extended release 24 hr 25 mg PO DAILY sertraline 100 mg tablet 100 mg PO DAILY atorvastatin 80 mg tablet 80 mg PO DAILY Brilinta 90 mg tablet 90 mg PO BID Odefsey 200-25-25 mg tablet 1 tab PO DAILY cetirizine 10 mg tablet 10 mg PO DAILY nitroglycerin 0.4 mg tablet, sublingual 0.4 mg sublingual Q5M PRN (Reason: chest pain) meloxicam 15 mg tablet 15 mg PO DAILY fenofibrate nanocrystallized 145 mg tablet 145 mg PO DAILY albuterol sulfate 90 mcg/actuation HFA aerosol inhaler 1 puff inhalation Q6H PRN (Reason: shortness of breath or wheezing) Trelegy Ellipta 100-62.5-25 mcg blister with device 1 inh inhalation DAILY potassium chloride 8 mEq tablet extended release 16 meq PO DAILY Qty: 180 3RF furosemide 40 mg tablet 40 mg PO DAILY Qty: 20 0RF Discharge Orders: Discharge ED (Routine); Ordered 07/26/22 Ordered By: Jeffy Vogel Referrals: Aleida Khan APN [Primary Care Provider] - Discharge Diet: Usual diet Discharge Activity: Limit activity as instructed Patient Instructions: Opioid Safety, Pain Management Activity Restrictions/Additional Instructions: You were seen today for chest pain. Your cardiac enzymes and EKG were negative. Recommend that you increase your isosorbide mononitrate to 90 mg (1-1/2 tablets) daily. Additionally you should use your oxygen 24 hours a day at 2 L/min. Continue all of your other previously prescribed medications. While you are in the ER this morning you were given Lasix lisinopril and metoprolol and isosorbide mononitrate for your morning doses and should not repeat those this morning but should resume your regularly scheduled medicines throughout the remainder of the day. Other medications that you usually take in the morning not listed above were not given and you should take those when you return home. Keep the appointment for the cardiac stress test that you have in 2 days. If you have worsening chest pain you should return to the emergency room. Avoid all exertional activity. Sign Out Sign Out Data: Patient Sign Out occurred on 07/26/22 at 07:13. Patient's care was discussed, and care was transferred from to Jeffy Vogel DO. Coding Level of Care Code ED Service Crew Supervisor for Marag Fwd Exam Comprehensive
[2022-07-26 05:46] LABS: Basophils % 0.3 %; Eosinophils # 0.2 10^3/uL (0.0-0.8); Eosinophils % 1.4 %; Hematocrit 39.7 % (37.0-47.0); Hemoglobin 12.5 g/dL (11.5-15.3); Lymphocytes # 1.1 10^3/uL (0.8-4.8); Lymphocytes % 9.9 %; Mean Corpuscular HGB Conc 31.5 g/dL (30.0-36.0); Mean Corpuscular Hemoglobin 30.2 pg (28.0-34.0); Mean Corpuscular Volume 95.9 fl (81-99); Mean Platelet Volume 9.9 fL (7.4-10.4); Monocytes # 0.8 10^3/uL (0.2-0.9); Monocytes % 7.3 %; Neutrophils # 9.16 10^3/uL (1.8-7.7); Nucleated Red Blood Cells % 0 %; Platelet Count 308 10^3/cmm (130-400); Red Blood Count 4.14 10^6/uL (4.1-5.3); Red Cell Distribution Width 14.4 % (12.1-15.1); White Blood Count 11.5 10^3/uL (4.0-10.0)
[2022-07-26] MEDS: aspirin 325 mg Tablet PO (05:46)
[2022-07-26] MEDS: morphine 4 mg/mL SDV 1 mL IVP (05:47)
[2022-07-26] MEDS: ondansetron 2 mg/ML SDV 2 mL 4 MG IVP (05:47)
[2022-07-26] MEDS: midazolam 1 mg/mL INJ 2 mL IVP (05:47)
[2022-07-26 05:54] LABS: INR 0.92 (0.8-1.2)
[2022-07-26 05:55] LABS: Partial Thromboplastin Time 27.2 SECONDS (23.9-36.7)
[2022-07-26 06:10] LABS: Troponin(5th) Baseline 14 ng/L (0-10)
[2022-07-26 06:20] LABS: Alanine Aminotransferase 22 U/L (0-33); Albumin Level 3.9 g/dL (3.5-5.2); Alkaline Phosphatase 74 U/L (35-105); Anion Gap 13.1 (5-19); Aspartate Amino Transferase 16 U/L (0-32); Blood Urea Nitrogen 16 mg/dL (8-23); Calcium 9.2 mg/dL (8.5-10.5); Carbon Dioxide 27 mmol/L (22-29); Chloride 104 mmol/L (98-107); Glucose 155 mg/dL (65-115); NT Pro B Type Natriuretic Pept 788 pg/mL (0-125); Osmolality Calculated 294 mOsm/kg (285-295); Potassium 4.1 mmol/L (3.5-5.1); Sodium 140 mmol/L (136-145); Total Bilirubin 0.3 mg/dL (0.15-1.2); Total Protein 7.9 g/dL (6.6-8.7)
[2022-07-26] MEDS: FUROsemide 10 mg/mL SDV 10mL 60 MG IVP (06:49)
[2022-07-26 06:57] VITALS: BP 155/87; PULSE 72; RESP 19; O2SAT 95
--- NOTE | 2022-07-26 07:02 | ECG_ITS ---
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 Measurements Intervals [place] Rate: 68 P: 52 TX: 139 QRS: 33 QRSD: 74 T: 59 QT: 432 QTc: 461 Interpretive Statements SINUS RHYTHM ANTEROSEPTAL MYOCARDIAL INFARCTION , PROBABLY OLD [40+ ms Q WAVE IN V1-V4] Compared to ECG 07/26/2022 05:13:45 Sinus arrhythmia no longer present Myocardial infarct finding still present Electronically Signed On 07-28-2022 23:16:50 CDT by Pat Markham M.D. [id number]
[2022-07-26 07:33] VITALS: BP 160/83; PULSE 69; RESP 19; O2SAT 95
[2022-07-26 08:09] LABS: Troponin 5 2HR 13.55 ng/L (0-10)
[2022-07-26 08:10] LABS: Troponin 5 2HR Delta -0.45 ABS# (0-10)
[2022-07-26 08:15] VITALS: BP 148/93; PULSE 67; O2SAT 97
[2022-07-26] MEDS: metoprolol succinate ER (24 HR) 25 mg Tablet PO (09:22)
[2022-07-26] MEDS: isosorbide mononitrate ER 60 mg Tablet 90 MG PO (09:22)
[2022-07-26] MEDS: lisinopril 2.5 mg Tablet 5 MG PO (09:23)
[2022-07-26] MEDS: FUROsemide 10 mg/mL SDV 4mL 40 MG IVP (09:24)
[2022-07-26] MEDS: metoprolol tartrate 1 mg/1 mL SDV 5 mL 2.5 MG IVP (09:25)
[2022-07-26 09:34] VITALS: BP 153/99; PULSE 95; O2SAT 95
--- NOTE | 2022-08-06 11:21 | DCPLANNER ---
Addendum entered by Michelle Fallon 09/24/22 11:50: Patient had a follow up appointment scheduled with heart care - patient did not attend appointment. Addendum entered by Michelle Fallon 08/27/22 14:46: Patient had an outpatient stress test scheduled for 07.28.22 - patient did attend stress test. Patient has a follow up appointment scheduled for Thursday, September 04, 2022 at 10:[address] Archer at [facility]. Clinic will call patient with appointment information. Original Note: web production manager had message to schedule a follow up appointment for patient with cardiology. web production manager sent patients information to the front office staff at [facility]. Patients information will be printed and reviewed. Clinic will call patient with appointment information. web production manager also had message to schedule an outpatient stress test for patient. web production manager faxed signed order to centralized scheduling, who will call patient with appointment information.
== END 2022-07-26 09:36 | disposition home or self-care (01) ==
PROVIDERS: Emergency Medicine; Emergency Provider Family Medicine; PCP Nurse Practitioner Family
DX: R07.9 Chest pain, unspecified (principal); J44.9 Chronic obstructive pulmonary disease, unspecified; I10 Essential (primary) hypertension; I25.118 Atherosclerotic heart disease of native coronary artery with other forms of angina pectoris
CPT/HCPCS: 36415; 71045; 80053; 83880; 84484; 85025; 85610; 85730; 93005; 96374; 96375; 96376; 99285; J1940; J2250; J2270; J2405; J3490

== ENCOUNTER 2022-07-28 06:37 | Outpatient (CLI) | payer MEDICARE, MEDICAID, SELFPAY ==
[2022-07-28 06:46] VITALS: BMI 38.2
--- NOTE | 2022-07-28 06:52 | ECG_ITS ---
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 Interpretive Statements NAME OF STUDY: LEXISCAN SESTAMIBI STRESS TEST INDICATION: CHEST PAIN; HX OF SD AND PCI RESULTS TO [facility]OWART PROCEDURE: At the baseline, the EKG revealed normal sinus rhythm with a poor R wave progression. QS pattern in lead V2 and V3 suggestive of old anteroseptal infarction. Nonspecific T wave changes in the high lateral leads. The baseline heart was 60 bpm with a blood pressue of 168/97 mm of Hg Lexiscan was infused over a period of 20 seconds. A total of 0.4 milligrams of Lexiscan was infused. The stress phase was continued for a total of 5 minutes. Heart rate at the end of the stress phase was 75 bpm with a blood pressure 183/103 mm of Hg. The EKG at the peak infusion revealed no significant changes. Sestamibi was injected 20 seconds after the Lexiscan infusion. Heart rate at the end of the recovery phase was 79 bpm with a blood pressure of 175/108 millimeters at normal okay RI thanks the area mm of Hg. CONCLUSION: 1. No significant EKG changes with the LexiScan infusion 2. No LexiScan induced chest pain or cardiac arrhythmia 3. Normal blood pressure and heart rate response 4. Sestamibi/sestamibi perfusion scan pending; see separate report. Electronically Signed On 07-31-2022 10:06:32 CDT by Alberta Archer M.D. [id number]
--- NOTE | 2022-07-28 06:53 | NMCV_ITS ---
NM lupe perf SPECT r/s* [id number] Katie Andrews Age: 66 Gender: F : 1955 Exam Date: 07/28/2022 08:16 Ordering Phys: Alberta Archer MD ([email or web address]) Technologist: NING Ying Exam Location: [facility] Indications: CORONARY ANGIOPLASTY STATUS STRESS TEST Please see separate stress test report in [facility] for full findings IMAGE PROTOCOL Rest/Stress 1 Lexiscan Day Radiopharmaceutical Dose (mCi) Administration Site Administered by Rest: Tc-99m 10.9 IV NING Vieyra Sestamibi Stress:Tc-99m 33.0 IV NING Vieyra Sestamibi Rest: 28-Jul-2022 60 Discovery 630 Stress: 28-Jul-2022 30 Discovery 630 0.4mg Lexiscan. Images obtained in supine and prone position. SPECT RESULTS Technical Quality: Excellent Raw Data Analysis: Normal Image Corrections: No attenuation or motion correction applied Summed Stress Score: 2 Summed Rest Score: 1 Summed Difference Score: 1 PERFUSION FINDINGS Small to moderate area of moderately decreased tracer uptake was noted in the mid and apical anterior wall region with no significant reversibility. A small area of slightly decreased tracer uptake was noted in the mid inferolateral region with some reversibility. However with the prone imaging, there is no significant reversible defect FUNCTIONAL RESULTS (calculated via Gated SPECT) Stress Image LV EF (%): 60 Stress EDV (mL):131 TID: 0.97 Stress ESV (mL):52 FUNCTIONAL FINDINGS: Segmental wall motion analysis revealing no gross wall motion abnormalities. IMPRESSIONS 1. Myocardial perfusion imaging revealing small to moderate area of persistent decreased tracer uptake in the anterior wall region, most likely represent attrition artifact. Small area of inconsistent reversible defect in the inferolateral region, possibly related to attenuation artifact. 2. Normal LV ejection fraction of 60%. 3. LV wall motion analysis revealing no gross wall motion abnormalities. 4. LV volume, upper limit of normal Possibly no significant coronary ischemia, based on the above findings Dr Alberta Archer MD FACC (Electronically Signed) Final Date: 28 July 2022 14:02 S
[2022-07-28] MEDS: regadenoson 0.4 Mg/5 ml Syringe IVP (08:43)
[2022-07-28 08:48] VITALS: BP 167/92; PULSE 80
--- NOTE | 2022-07-28 15:00 | USCV_ITS ---
Katie Andrews Age: 66 Gender: F : 1955 Exam Date: 07/28/2022 09:16 Ordering Phys: Alberta Archer MD ([email or web address]) Technologist: Edgar Sanches Exam Location: [facility] [place] Indication: cp and sob BP: 128 / 74 HR: 68 Rhythm: Sinus Technical Quality: Adequate MEASUREMENTS (Male / Female) Normal Values 2D ECHO LV Diastolic Diameter PLAX 4.6 cm 4.2 - 5.9 / 3.9 - 5.3 cm LV Systolic Diameter PLAX 2.9 cm IVS Diastolic Thickness 1.0 cm 0.6 - 1.0 / 0.6 - 0.9 cm IVS Systolic Thickness 1.2 cm LVPW Diastolic Thickness 1.0 cm 0.6 - 1.0 / 0.6 - 0.9 cm LVPW Systolic Thickness 1.4 cm LVOT Diameter 2.0 cm LV Ejection Fraction 2D Teich 67.1 % LV Ejection Fraction MOD 2C 71.9 % LV Ejection Fraction 2C AL 74.2 % LA Diameter 3.6 cm LA Width 3.4 cm LA Height 5.4 cm RA Width 2.9 cm RA Height 4.5 cm Aorta at Sinotubular Diameter 2.8 cm IVC Diameter 1.9 cm M-MODE Aortic Annulus Diameter 3.0 cm LA Ao Ratio MM 1.1 MV E Point Septal Separation 0.9 cm DOPPLER AV Peak Velocity 164.0 cm/s LVOT Peak Velocity 135.0 cm/s AV Area Cont Eq vti 2.3 cm squared AV Area Cont Eq pk 2.6 cm squared MV Peak Velocity 136.0 cm/s MV Area PHT 4.3 cm squared Mitral E to A Ratio 1.2 MV E' Velocity 59.0 cm/s Mitral E to MV E' Ratio 11.4 Mitral E to LV E' Lateral Ratio 10.9 Mitral E to LV E' Septal Ratio 12.0 TR Peak Velocity 125.0 cm/s TR Peak Gradient 6.3 mmHg TR Mean Velocity 97.9 cm/s TR Mean Gradient 4.0 mmHg TR Velocity Time Integral 25.7 cm Right Atrial Pressure 3.0 mmHg Pulmonary Artery Systolic Pressu 9.3 mmHg PV Peak Velocity 126.0 cm/s RV Acceleration Time 0.1 s RV Ejection Time 0.3 s RV AcT/ET 0.4 FINDINGS Left Ventricle Normal left ventricular size and systolic function, EF 71 %.mild left ventricular hypertrophy. No regional wall motion abnormalities. Grade III/IV diastolic dysfunction (restrictive filling pattern), severely elevated filling pressures. Right Ventricle The right ventricle is normal in size and function. Right Atrium The right atrium is normal in size. Left Atrium Mildly increased left atrial size. Mitral Valve Thickened mitral valve. Aortic Valve No gross abnormalities noted Tricuspid Valve No gross abnormalities noted Pulmonic Valve Pulmonic valve not well visualized. Pericardium Normal pericardium without effusion. Aorta Normal ascending aorta dimension. IVC The inferior vena cava appears normal. CONCLUSIONS Normal left ventricular size and systolic function, EF 71 %.mild left ventricular hypertrophy. No regional wall motion abnormalities. Grade III/IV diastolic dysfunction (restrictive filling pattern), severely elevated filling pressures. Mildly increased left atrial size. Thickened mitral valve. There is no pericardial effusion. There are no intracardiac masses. No previous study is available for comparison. Dr Alberta Archer MD FACC (Electronically Signed) Final Date: 28 July 2022 23:17 S
== END 2022-07-28 06:38 | disposition home or self-care (01) ==
LOC: CDL 06:39
PROVIDERS: PCP Nurse Practitioner Family; Visit Provider Internal Medicine Cardiovascular Disease
DX: R07.9 Chest pain, unspecified (principal); I25.2 Old myocardial infarction; Z98.61 Coronary angioplasty status; I25.10 Atherosclerotic heart disease of native coronary artery without angina pectoris
CPT/HCPCS: 78452; 93017; 93306; A9500; J2785

== ENCOUNTER 2022-07-29 08:56 | Outpatient (CLI) | payer MEDICARE, MEDICAID, SELFPAY ==
--- NOTE | 2022-07-29 09:21 | CT_ITS ---
WS: [id number] CT LUMBAR SPINE, noncontrast. HISTORY: VERTEBROGENIC LOW BACK PAIN TECHNIQUE: Contiguous 2.5 mm axial imaging are performed. Sagittal and coronal reformats are submitte d and reviewed. All CT scans at [facility] use at least one of these dose optimization techni ques: automated exposure control; mA and/or kV adjustment per patient size (includes targeted exams w here dose is matched to clinical indication); or iterative reconstruction. IV contrast: None DLP: 1320.65 mGy.cm COMPARISON: None available. 2 mm anterolisthesis of L3. No lumbar spine fracture. Advanced degenerative disc disease at L4-5 and L5-S1. Facet joint arthritis most significant at L4-5 and L5-S1. L1-2: Normal. L2-3: Very minimal disc bulging slightly asymmetric to the LEFT. No stenosis. L3-4: Mild osteophytic ridging and central disc protrusion. Disc protrusion slightly greater to the R IGHT mild ligamentum flavum hypertrophy. Mild foraminal narrowing. L4-5: Mild osteophytic ridging and annular disc bulging. Marked facet joint arthritis. Narrowing of t he facet joints with cystic and sclerotic changes. Only mild foraminal narrowing. L5-S1: Mild osteophytic ridging and disc bulging. Mild bilateral foraminal narrowing. Air in the SI joints bilaterally. CT/CT lumbar spine wo con* [id number] IMPRESSION: 1. No lumbar spine fracture. 2. There is advanced facet joint arthritis at L4-5 and L5-S1. 3. Mild bilateral foraminal narrowing from L3-4 to L5-S1 due to combination of disc, osteophyte and facet disease.
--- NOTE | 2022-07-29 09:22 | XR_ITS ---
WS: [id number] Exam: XR chest 2V* [id number] Date/Time of Exam: 07/29/2022 9:25 AM Reason For Exam: MODERATE PERSISTENT ASTHMATIC BRONCHITIS WITH ACUTE EXACERBA Comparison 07/26/2022. Mild cardiac enlargement with accentuation of pulmonary vascularity. This is unchanged. No consolidat ing infiltrates or pleural effusions. No pneumothorax. The mediastinal silhouette is unremarkable. Philippe ny structures are intact. Spondylosis of the dorsal spine and degenerative disc changes. XR/XR chest 2V* [id number] IMPRESSION: 1. Mild cardiac enlargement with accentuation of pulmonary vascularity. The pat tern is unchanged. 2. No acute cardiopulmonary process.
== END 2022-07-29 08:57 | disposition home or self-care (01) ==
LOC: RAD 08:56
PROVIDERS: PCP Nurse Practitioner Family; Visit Provider Nurse Practitioner
DX: M54.51 Vertebrogenic low back pain (principal); M47.896 Other spondylosis, lumbar region; M47.897 Other spondylosis, lumbosacral region
CPT/HCPCS: 71046; 72131

== ENCOUNTER 2022-09-17 08:17 | Outpatient (CLI) | payer MEDICARE, MEDICAID, SELFPAY ==
[2022-09-17 09:14] LABS: Anion Gap 14.2 (5-19); Blood Urea Nitrogen 25 mg/dL (8-23); Calcium 9.1 mg/dL (8.5-10.5); Carbon Dioxide 30 mmol/L (22-29); Chloride 96 mmol/L (98-107); Glomerular Filtration Rate 37.9 mL/min (90-130); Glucose 124 mg/dL (65-115); NT Pro B Type Natriuretic Pept 383 pg/mL (0-125); Osmolality Calculated 288 mOsm/kg (285-295); Potassium 4.2 mmol/L (3.5-5.1); Sodium 136 mmol/L (136-145)
== END 2022-09-17 08:18 | disposition home or self-care (01) ==
LOC: LAB 08:22
PROVIDERS: PCP Nurse Practitioner Family; Visit Provider Internal Medicine Cardiovascular Disease
DX: I25.118 Atherosclerotic heart disease of native coronary artery with other forms of angina pectoris (principal); R06.02 Shortness of breath; R60.9 Edema, unspecified; I25.10 Atherosclerotic heart disease of native coronary artery without angina pectoris
CPT/HCPCS: 36415; 80048; 83880

== ENCOUNTER → 2022-10-09 11:56 | Outpatient (BNVA) | payer MEDICARE, MEDICAID, SELFPAY | PROVIDERS: PCP Nurse Practitioner Family; Visit Provider Nurse Practitioner Family | DX: I10 Essential (primary) hypertension (principal); R60.9 Edema, unspecified; Z13.29 Encounter for screening for other suspected endocrine disorder; E11.9 Type 2 diabetes mellitus without complications; E78.2 Mixed hyperlipidemia | CPT/HCPCS: 80053; 80061; 83036; 83880; 84439; 84443; 85025 ==

== ENCOUNTER 2022-10-12 15:20 | Inpatient (IN) | payer MEDICARE, MEDICAID, SELFPAY ==
[2022-10-12] VITALS (13 sets, daily range): BP systolic 109–177; BP diastolic 73–123; PULSE 67–145; RESP 16–22; TEMP 36.7–36.8; O2SAT 89–97
--- NOTE | 2022-10-12 15:25 | ECG_ITS ---
[facility] Test Date: 2022-10-12 Pat Name: Katie Andrews Department: Room: Gender: Female Programming Coordinator: : 1955 Requested By: Jeffy Dhaliwal Order Number: [id number] Dunia MD: Alberta Archer M.D. Measurements Intervals [place] Rate: 89 P: 86 [place]: 136 QRS: 13 QRSD: 70 T: 66 QT: 354 QTc: 431 Interpretive Statements SINUS RHYTHM ANTEROSEPTAL MYOCARDIAL INFARCTION , OF INDETERMINATE AGE [40+ ms Q WAVE IN V1-V4] Compared to ECG 07/26/2022 07:02:44 No significant changes Electronically Signed On 10-12-2022 20:05:45 CONCRETE FORM SETTER AND FINISHER by Alberta Archer M.D. [id number]
--- NOTE | 2022-10-12 15:36 | XRR_ITS ---
PROCEDURE INFORMATION: Exam: XR Chest Exam date and time: 10/12/2022 3:52 PM Age: 66 years old Clinical indication: Pain; Chest pressure; Additional info: Chest pain TECHNIQUE: Imaging protocol: Radiologic exam of the chest. Views: 1 view. COMPARISON: CR XR chest 2V* [id number] 07/29/2022 9:26 AM FINDINGS: Lungs: Interval development of fullness in the pulmonary vasculature suggesting volume overload in the lungs. Pleural spaces: No pleural effusion. No pneumothorax. Heart/Mediastinum: Stable moderate enlargement of the cardiac silhouette. Mediastinal contours are unremarkable. Bones/joints: Unremarkable for age. XR/XR chest 1V portable [id number] IMPRESSION: 1. Interval development of fullness in the pulmonary vasculature suggesting volume overload in the lungs. 2. Incidental/nonacute findings are listed in the report.
--- NOTE | 2022-10-12 15:39 | W.ED.CHESTPA ---
Documented by User: Jeffy Vogel DO 10/27/22 06:09 HPI - Chest Pain General: Chief Complaint: Chest Pain Stated Complaint: chest pain Time Seen by Provider: 10/12/22 15:35 Source: patient Mode of arrival: ambulatory History of Present Illness: 66-year-old female presents to the emergency room complaining of chest pain. She states she had chest pain rating into her back for the last 3 days. She also had bilateral leg pain but that is chronic including the swelling that she has there. Today it seems somewhat worse she is more short of breath she is not had any fever sweats or chills no productive cough. She reports she uses oxygen on an as-needed basis at home. No abdominal pain. MD complaint: chest pain and chest heaviness Pertinent past history: coronary artery disease Onset (ago): day(s) (3) Timing of current episode: episodic Onset: during rest Pain location: left chest Pain radiation: right arm, left arm and back Severity: moderate Quality: aching and heaviness Relieving factors: nothing Exacerbating factors: nothing Associated symptoms: Reports leg edema; Deny abdominal pain, diaphoresis, dyspnea, fever(s), nausea, palpitations, sense of impending doom, syncope or vomiting Treatment prior to arrival: aspirin and nitroglycerin Review of Systems Const: Denies: fever(s), chills, fatigue or diaphoresis ENMT: Denies: throat pain, ear or mastoid pain, nasal discharge or nasal congestion Card: Reports: chest pain, edema, swelling of feet/ankles and dyspnea on exertion; Denies: palpitations, irregular heart rhythm, syncope or orthopnea Resp: Denies: dyspnea GI: Denies: abdominal pain, nausea or vomiting : Denies: flank pain, difficulty voiding, dysuria, urinary frequency or urinary urgency Skin/Breast: Denies: rash or pruritus PFSH ED PFSH: Medical History CAD (coronary artery disease) COPD (chronic obstructive pulmonary disease) Hypertension Peripheral edema Surgical History History of PTCA Family History Father CAD (coronary artery disease), Onset Age: 46 [place] Cancer Dementia Diabetes Mother CAD (coronary artery disease), Onset Age: 82 Diabetes Denies family history of Clotting disorder Chronic kidney disease (CKD) Suicide Anesthesia complication Bleeding disorder Lung disease Stroke Social History Smoking and tobacco status: former smoker Alcohol intake: former Physical Exam Const: GENERAL APPEARANCE: cooperative and comfortable ORIENTATION/CONSCIOUSNESS: Yes awake, Yes oriented to person, Yes oriented to place and Yes oriented to time HENMT: COMMON NORMALS: normocephalic, atraumatic and hearing grossly normal bilaterally HEAD & SCALP: normocephalic and atraumatic Resp: COMMON NORMALS: normal respiratory effort, No retractions, No use of accessory muscles and clear to auscultation bilaterally AUSCULTATION: clear to auscultation bilaterally Cardio: RATE: tachycardic RHYTHM: abnormal rhythm irregularly irregular GI: COMMON NORMALS: Soft to palpation and No hepatosplenomegaly present AUSCULTATION: Yes normoactive bowel sounds PALPATION: Yes Soft to palpation, No Tenderness to palpation present (GI), No Guarding due to palpation present (GI) and Yes No hepatosplenomegaly present : COMMON NORMALS: Yes no CVA tenderness BLADDER/KIDNEY EXAM: Yes no CVA tenderness Back/Pelvis: COMMON NORMALS: no CVA tenderness Extremity: COMMON NORMALS: normal to inspection, capillary refill normal, no clubbing, cyanosis or edema, no calf tenderness and no pedal edema Neuro: SENSORIUM/ORIENTATION: Yes oriented to person, Yes oriented to place and Yes oriented to time Skin: COMMON NORMALS: no rashes or lesions noted GENERAL SKIN EXAM: no rashes or lesions noted Course Vital Signs: Vital signs: Vital Signs Temperature 98.2 F 10/18/22 11:34 Pulse Rate 70 10/18/22 11:34 Respiratory Rate 28 H 10/18/22 11:34 Blood Pressure 141/81 10/18/22 11:34 Pulse Oximetry 100 10/18/22 11:34 Oxygen Delivery Me thod 10/18/22 08:00 Oxygen Flow Rate 3 10/18/22 08:25 Fraction of Inspir ed Oxygen 36 10/18/22 08:00 MDM - Chest Pain Medical Decision Making Patient presents with A. fib with RVR. Moderate respiratory distress blood gases are pending will start on BiPAP. Initiate rate control labs otherwise pending care signed out to Dr. Gee at change of shift. See final notes for diagnosis and disposition. Received from the previous position and check out. This lady had become less and less responsive in the emergency department. There was some trouble maintaining saturations. Blood gas showed respiratory acidosis. She was placed on bipap with improvement. She'll be admitted for pulmonary edema and hypoxic hypercapnic respiratory failure Medical Records I reviewed the patient's medical records. Lab Data I reviewed the patient's lab results. 10/12/22 16:01 10/12/22 16:01 Radiology Impressions Chest X-Ray 10/12/22 15:36 IMPRESSION: 1. Interval development of fullness in the pulmonary vasculature suggesting volume overload in the lungs. 2. Incidental/nonacute findings are listed in the report. Laboratory Results WBC 8.5 10^3/uL (4.0-10.0) 10/12/22 16:01 RBC 3.93 10^6/uL (4.1-5.3) L 10/12/22 16:01 Hgb 11.9 g/dL (11.5-15.3) 10/12/22 16:01 Hct 38.7 % (37.0-47.0) 10/12/22 16:01 MCV 98.5 fl (81-99) 10/12/22 16:01 MCH 30.3 pg (28.0-34.0) 10/12/22 16:01 MCHC 30.7 g/dL (30.0-36.0) 10/12/22 16:01 RDW 15.7 % (12.1-15.1) H 10/12/22 16:01 Plt Count 201 10^3/cmm (130-400) 10/12/22 16:01 MPV 10.2 fL (7.4-10.4) 10/12/22 16:01 Neut % (Auto) 71.5 % 10/12/22 16:01 Lymph % (Auto) 17.3 % 10/12/22 16:01 [place] % (Auto) 7.5 % 10/12/22 16:01 Eos % (Auto) 1.8 % 10/12/22 16:01 Baso % (Auto) 0.5 % 10/12/22 16:01 Neut # (Auto) 6.11 10^3/uL (1.8-7.7) 10/12/22 16:01 Lymph # (Auto) 1.5 10^3/uL (0.8-4.8) 10/12/22 16:01 [place] # (Auto) 0.6 10^3/uL (0.2-0.9) 10/12/22 16:01 Eos # (Auto) 0.2 10^3/uL (0.0-0.8) 10/12/22 16:01 Baso # (Auto) 0.0 10^3/uL (0.0-0.1) 10/12/22 16:01 Nucleated RBC % (auto) 0.4 % 10/12/22 16:01 Nucleated RBCs # 0.0 /100WBC 10/12/22 16:01 Specimen Type Arterial 10/12/22 19:20 Sample Site Radial, right 10/12/22 19:20 ABG pH 7.32 (7.35-7.45) L 10/12/22 19:20 ABG pCO2 71.6 mmHg (35-45) H* 10/12/22 19:20 ABG pO2 44.3 mmHg (80.0-100.0) L 10/12/22 19:20 ABG HCO3 36.7 mmol/L (22-26) H 10/12/22 19:20 ABG Base Excess 7.9 mmol/L (-2.0-2.0) H 10/12/22 19:20 Eddie Test Pos 10/12/22 19:20 Hematocrit 40.0 % (37-47) 10/12/22 19:20 O2 Delivery Device Nc 10/12/22 19:20 O2 Liters/Min 3.0 % 10/12/22 19:20 FiO2 32.0 % 10/12/22 19:20 Liaison Officer ID Droch 10/12/22 19:20 Sodium 140 mmol/L (136-145) 10/12/22 16:01 Potassium 4.3 mmol/L (3.5-5.1) 10/12/22 16:01 Chloride 102 mmol/L (98-107) 10/12/22 16:01 Carbon Dioxide 30 mmol/L (22-29) H 10/12/22 16:01 Anion Gap 12.3 (5-19) 10/12/22 16:01 BUN 17 mg/dL (8-23) 10/12/22 16:01 Creatinine 1.2 mg/dL (0.5-0.9) H 10/12/22 16:01 GFR Calculation 45.2 mL/min (90-130) L 10/12/22 16:01 Glucose 212 mg/dL (65-115) H 10/12/22 16:01 Calculated Osmolality 298 mOsm/kg (285-295) H 10/12/22 16:01 Calcium 9.0 mg/dL (8.5-10.5) 10/12/22 16:01 Total Bilirubin 0.4 mg/dL (0.15-1.2) 10/12/22 16:01 AST 25 U/L (0-32) 10/12/22 16:01 ALT 25 U/L (0-33) 10/12/22 16:01 Alkaline Phosphatase 92 U/L (35-105) 10/12/22 16:01 Troponin T Baseline 16 ng/L (0-10) H 10/12/22 16:01 Troponin T 120 Minute 18.17 ng/L (0-10) H 10/12/22 18:25 Delta Troponin T 2.17 ABS# (0-10) 10/12/22 18:25 NT-Pro-B Natriuret Pep 1000 pg/mL (0-125) H 10/12/22 18:25 Total Protein 7.0 g/dL (6.6-8.7) 10/12/22 16:01 Albumin 3.7 g/dL (3.5-5.2) 10/12/22 16:01 Globulin 3.3 g/dL (1.3-4.6) 10/12/22 16:01 Procalcitonin 0.06 ng/mL (0-0.5) 10/12/22 18:25 TSH 1.07 uIU/mL (0.27-4.20) 10/12/22 18:25 TSH Cancelled 10/12/22 18:25 Discharge Plan Discharge Patient Disposition: Admitted As Inpatient Admit Provider: Penelope Johnson Clinical Impression: Atrial fibrillation with RVR, Respiratory failure Condition: Stable Discharge Diet: Cardiac Discharge Activity: As per cardiac/pulm rehab instructions Coding Level of Care Code ED Profiling Machine Set Up Operator Tool for Chg Fwd Exam Comprehensive Documented by User: Aldair Gee DO 10/14/22 13:29 HPI - Chest Pain General: Chief Complaint: Chest Pain Stated Complaint: chest pain Time Seen by Provider: 10/12/22 15:35 PFS ED PFSH: Medical History CAD (coronary artery disease) COPD (chronic obstructive pulmonary disease) Hypertension Peripheral edema Surgical History History of PTCA Family History Father CAD (coronary artery disease), Onset Age: 46 [place] Cancer Dementia Diabetes Mother CAD (coronary artery disease), Onset Age: 82 Diabetes Denies family history of Clotting disorder Chronic kidney disease (CKD) Suicide Anesthesia complication Bleeding disorder Lung disease Stroke Social History Smoking and tobacco status: former smoker Alcohol intake: former Course Vital Signs: Vital signs: Vital Signs Temperature 98.2 F 10/18/22 11:34 Pulse Rate 70 10/18/22 11:34 Respiratory Rate 28 H 10/18/22 11:34 Blood Pressure 141/81 10/18/22 11:34 Pulse Oximetry 100 10/18/22 11:34 Oxygen Delivery Me thod 10/18/22 08:00 Oxygen Flow Rate 3 10/18/22 08:25 Fraction of Inspir ed Oxygen 36 10/18/22 08:00 MDM - Chest Pain Medical Decision Making Received from the previous position and check out. This lady had become less and less responsive in the emergency department. There was some trouble maintaining saturations. Blood gas showed respiratory acidosis. She was placed on bipap with improvement. She'll be admitted for pulmonary edema and hypoxic hypercapnic respiratory failure Lab Data 10/12/22 16:01 10/12/22 16:01 Radiology Impressions Chest X-Ray 10/12/22 15:36
[2022-10-12 16:18] LABS: Basophils % 0.5 %; Eosinophils # 0.2 10^3/uL (0.0-0.8); Eosinophils % 1.8 %; Hematocrit 38.7 % (37.0-47.0); Hemoglobin 11.9 g/dL (11.5-15.3); Lymphocytes # 1.5 10^3/uL (0.8-4.8); Lymphocytes % 17.3 %; Mean Corpuscular HGB Conc 30.7 g/dL (30.0-36.0); Mean Corpuscular Hemoglobin 30.3 pg (28.0-34.0); Mean Corpuscular Volume 98.5 fl (81-99); Mean Platelet Volume 10.2 fL (7.4-10.4); Monocytes # 0.6 10^3/uL (0.2-0.9); Monocytes % 7.5 %; Neutrophils # 6.11 10^3/uL (1.8-7.7); Neutrophils % 71.5 %; Nucleated Red Blood Cells % 0.4 %; Platelet Count 201 10^3/cmm (130-400); Red Blood Count 3.93 10^6/uL (4.1-5.3); Red Cell Distribution Width 15.7 % (12.1-15.1); White Blood Count 8.5 10^3/uL (4.0-10.0)
[2022-10-12] MEDS: FUROsemide 10 mg/mL SDV 4mL 40 MG IVP (16:36)
[2022-10-12 16:46] LABS: Alanine Aminotransferase 25 U/L (0-33); Albumin Level 3.7 g/dL (3.5-5.2); Alkaline Phosphatase 92 U/L (35-105); Blood Urea Nitrogen 17 mg/dL (8-23); Carbon Dioxide 30 mmol/L (22-29); Chloride 102 mmol/L (98-107); Creatinine Clr Calc Pharmacy 55.7402; Globulin 3.3 g/dL (1.3-4.6); Glomerular Filtration Rate 45.2 mL/min (90-130); Glucose 212 mg/dL (65-115); Osmolality Calculated 298 mOsm/kg (285-295); Sodium 140 mmol/L (136-145); Total Bilirubin 0.4 mg/dL (0.15-1.2); Troponin(5th) Baseline 16 ng/L (0-10)
[2022-10-12 17:13] LABS: Anion Gap 12.3 (5-19); Aspartate Amino Transferase 25 U/L (0-32); Potassium 4.3 mmol/L (3.5-5.1)
--- NOTE | 2022-10-12 17:48 | ECG_ITS ---
[facility] Test Date: 2022-10-12 Pat Name: Katie Andrews Department: Room: Gender: Female Harness Tier: : 1955 Requested By: Jeffy Dhaliwal Order Number: [id number] Dunia MD: Alberta Archer M.D. Measurements Intervals [place] Rate: 73 P: 53 SD: 126 QRS: 12 QRSD: 78 T: 73 QT: 395 QTc: 437 Interpretive Statements SINUS RHYTHM SEPTAL MYOCARDIAL INFARCTION , OF INDETERMINATE AGE [40+ ms Q WAVE IN V1/V2] Compared to ECG 10/12/2022 15:25:34 No significant changes Electronically Signed On 10-12-2022 20:23:48 POWDER WORKER TNT by Alberta Archer M.D. [id number]
[2022-10-12 18:59] LABS: Troponin 5 2HR 18.17 ng/L (0-10)
[2022-10-12 19:02] LABS: Troponin 5 2HR Delta 2.17 ABS# (0-10)
[2022-10-12] MEDS: nitroglycerin 0.4 mg sublingual Tablet SUBLINGUAL (19:13)
[2022-10-12] MEDS: nitroglycerin 1 gm/inch oint Pkt 2 INCH TOPICAL (19:13)
--- NOTE | 2022-10-12 19:31 | ECG_ITS ---
[facility] Test Date: 2022-10-12 Pat Name: Katie Andrews Department: Room: Gender: Female Web Content Editor: : 1955 Requested By: Aldair Rooney Order Number: [id number] Dunia MD: Alberta Archer M.D. Measurements Intervals [place] Rate: 147 P: 0 [place]: 0 QRS: 19 QRSD: 69 T: 80 QT: 309 QTc: 483 Interpretive Statements ATRIAL FIBRILLATION WITH RAPID VENTRICULAR RESPONSE SEPTAL MYOCARDIAL INFARCTION , PROBABLY OLD [40+ ms Q WAVE IN V1/V2] Compared to ECG 10/12/2022 17:48:13 Sinus rhythm no longer present Myocardial infarct finding still present Electronically Signed On 10-12-2022 20:08:03 BUSINESS DIVISION CHAIR by Alberta Archer M.D. [id number]
[2022-10-12] MEDS: dilTIAZem 5 mg/mL SDV 5 mL 20 MG IVP (19:42)
[2022-10-12] MEDS: dilTIAZem 100 MG in sodium chloride 0.9% (add-van) 100 ML IV (19:49)
--- NOTE | 2022-10-12 19:52 | PC.NURSE ---
Nitro paste removed from patient left chest wall per Dr. Gee order @ 194
--- NOTE | 2022-10-12 21:33 | P.HP_ITS ---
Providers/Chief Complaint Admitting Physician: Penelope Johnson MD Primary Care Provider: Alexa Ayers APN Chief Complaint: chest pain History of Present Illness Katie Andrews is a 66 year old female possible history of coronary artery disease, COPD, hypertension, atrial fibrillation, chronically anticoagulated with Eliquis presented to the hospital for worsening shortness of breath and some chest pain she has had for the last 3 days. She says the pain was a bandlike pattern under her ribs however has resolved once she has gotten to the ER. She says her arm started feeling tighter and her leg started feeling tighter. She is on Lasix at home. Unable to tell me if she is got a true history of heart failure however says that I have swelling in my legs and that is why I am on a water pill. She is not on any oxygen at home and uses it as needed however she has been requiring oxygen here in the ER. She says that she has been more short of breath compared to before. She was given aspirin and nitroglycerin prior to arrival. Chest pain has not recurred since. She was al so given 40 of Lasix in the ER and then 60 of Lasix IV again. She says she has been voiding quite frequently since the medication was given. She feels a lot better at this time. Seen sitting up in bed eating a turkey sandwich and almost has eaten the whole time and is watching TV resting comfortably in bed. States she felt a little nauseous. She was in A. fib RVR on arrival and was given Card izem push and then placed on a drip and then she converted to sinus rhythm. The drip was taken off. However later she went back into A. fib RVR so drip was restarted. In the ED patient was placed on BiPAP and felt better. Medications/Allergies Home Medications Medication Instructions Recorded Confirmed Last Taken Type albuterol sulfate 90 mcg/actuation 1 puff inhalation Q6H PRN 05/26/22 Unknown History aerosol inhaler shortness of breath or wheezing apixaban 5 mg tablet (Eliquis) 5 mg PO BID 05/26/22 10/13/22 10/12/22 History aripiprazole 15 mg tablet 15 mg PO DAILY 05/26/22 10/13/22 Unknown History atorvastatin 80 mg tablet 80 mg PO DAILY 05/26/22 10/13/22 10/12/22 History cetirizine 10 mg tablet 10 mg PO DAILY 05/26/22 Unknown History emtricitabine 200 mg-rilpivirine 1 tab PO DAILY 05/26/22 10/13/22 10/11/22 17:00 History 25 mg-tenofovir alafenam 25 mg tablet (Odefsey) fenofibrate nanocrystallized 145 145 mg PO DAILY 05/26/22 Unknown History mg tablet fluticasone fur. 100 mcg-umeclid 1 inh inhalation DAILY 05/26/22 Unknown History 62.5 mcg-vilant 25 mcg inhalat.powder (Trelegy Ellipta) lisinopril 5 mg tablet 5 mg PO DAILY 05/26/22 Unknown History meloxicam 15 mg tablet 15 mg PO DAILY 05/26/22 Unknown History metoprolol succinate 25 mg 25 mg PO DAILY 05/26/22 Unknown History tablet,extended release 24 hr nitroglycerin 0.4 mg sublingual 0.4 mg sublingual Q5M PRN chest 05/26/22 10/13/22 10/12/22 History tablet pain sertraline 100 mg tablet 100 mg PO DAILY 05/26/22 Unknown History ticagrelor 90 mg tablet (Brilinta) 90 mg PO BID 05/26/22 Unknown History isosorbide mononitrate 60 mg 90 mg PO DAILY #45 tabs 07/26/22 10/13/22 Unknown Rx tablet,extended release 24 hr potassium chloride 8 mEq 16 meq PO DAILY #180 tabs 07/29/22 Unknown Rx tablet,extended release furosemide 40 mg tablet 40 mg PO DAILY #90 tabs 09/02/22 10/13/22 10/12/22 Rx gabapentin 300 mg capsule 600 mg PO 3XD 10/13/22 10/13/22 Unknown History hydrocodone 5 mg-acetaminophen 325 1 tab PO Q4H PRN Pain 10/13/22 10/13/22 Unkn own History mg tablet Allergies Allergy/AdvReac Type Severity Reaction Status Date / Time No Known Allergies Allergy Verified 07/28/22 07:33 PFSH Acute PFSH: Medical History CAD (coronary artery disease) COPD (chronic obstructive pulmonary disease) Hypertension Peripheral edema Surgical History History of PTCA Family History Father CAD (coronary artery disease), Onset Age: 46 [place] Cancer Dementia Diabetes Mother CAD (coronary artery disease), Onset Age: 82 Diabetes Denies family history of Clotting disorder Chronic kidney disease (CKD) Suicide Anesthesia complication Bleeding disorder Lung disease Stroke Social History Smoking and tobacco status: former smoker Alcohol intake: former Vitals/I&O/Wt Last Vital Signs Temp 98.0 F 10/12/22 15:20 Pulse 67 10/12/22 21:28 Resp 20 H 10/12/22 21:28 BP 132/86 10/12/22 21:28 Pulse Ox 96 10/12/22 21:28 O2 Del Method 10/12/22 21:28 O2 Flow Rate 5 10/12/22 19:31 FiO2 36 10/12/22 21:28 10/12/22 10/12/22 10/12/22 06:59 14:59 22:59 Intake Total 2.833 / 2.833 Balance 2.833 / 2.833 Weight last 48 hrs Weight 104.326 kg Physical Exam Narrative: General: Alert oriented x3, patient seen sitting up in bed eating drinking sandwich at this time and watching TV. Sitting up comfortably. HEENT: Normocephalic, atraumatic, EOMI, breathing normally on nasal cannula. Cardio: Regular rate rhythm, normal S1-S2, chest pain not reproducible to palpation Respiratory: Fair bilateral air entry diminished at bases, no wheezes no rhonchi appreciated GI: Abdomen soft, nontender, nondistended, bowel sounds + Extremities: No bilateral lower extremity edema noted. Data 10/12/22 16:01 10/12/22 16:01 A&P Assessment and plan (1) Atherosclerotic heart disease of [place] coronary artery with other forms of angina pectoris: (2) SOB (shortness of breath): (3) Dyslipidemia: (4) Benign essential HTN: (5) Atrial fibrillation with RVR: (6) Diastolic heart failure: Plan #Shortness of breath, increased lower extremity edema #Acute on chronic congestive diastolic heart failure #CKD #Atrial fibrillation with RVR #COPD #Hypertension ? Chest x-ray does show pulmonary vascular congestion. BNP 1000 on arrival. Chest pain has now resolved. Troponin delta 2.17. Chest pain-free at this time. Status post IV Lasix in the ER ? Continue on Lasix 40 IV twice daily ? Continue on Cardizem drip at this time. ? Continue Eliquis, atorvastatin, gabapentin, Imdur, lisinopril ? Placed on metoprolol 50 twice daily. Home dose is 25 oral daily ? Continue sertraline, Brilinta ? Continue to wean off oxygen as able -Most recent echo was done in July 2022 showing diastolic heart failure with normal EF. I would not repeat at this time. Full code DVT prophylaxis: Lisette Hansen Medical Necessity Statement*: Requires greater than 2 midnight stay for management of A. fib with RVR and acute on chronic congestive heart failure. Coding Level of Care Code Acute Route Delivery Service Driver for Chg Fwd Diagnoses Atherosclerotic heart disease of [place] coronary artery with other forms of angina pectoris I25.118 SOB (shortness of breath) R06.02 Dyslipidemia E78.5 Benign essential HTN I10 Atrial fibrillation with RVR I48.91 Diastolic heart failure I50.30
--- NOTE | 2022-10-12 21:39 | ECG_ITS ---
[facility] Test Date: 2022-10-12 Pat Name: Katie Andrews Department: Room: 111 Gender: Female Senior Asic Design Engineer: : 1955 Requested By: Jeffy Dhaliwal Order Number: [id number] Reading MD: Alberta Archer M.D. Measurements Intervals [place] Rate: 82 P: 49 [place]: 143 QRS: 4 QRSD: 76 T: 60 QT: 376 QTc: 440 Interpretive Statements SINUS RHYTHM ANTEROSEPTAL MYOCARDIAL INFARCTION , OF INDETERMINATE AGE [40+ ms Q WAVE IN V1-V4] Compared to ECG 10/12/2022 19:34:12 Atrial fibrillation no longer present Myocardial infarct finding still present Electronically Signed On 10-13-2022 20:34:41 TANK FURNACE OPERATOR by Alberta Archer M.D. [id number]
[2022-10-12 21:59] LABS: NT Pro B Type Natriuretic Pept 1000 pg/mL (0-125); Procalcitonin 0.06 ng/mL (0-0.5); Thyroid Stimulating Hormone 1.07 uIU/mL (0.27-4.20)
[2022-10-12 22:55] LABS: Troponin 5 6HR 18.24 ng/L (0-10)
[2022-10-12 22:56] LABS: Troponin 5 6HR Delta 2.24 ng/L (0-12)
[2022-10-12] MEDS: FUROsemide 10 mg/mL SDV 10mL 60 MG IVP (22:59)
[2022-10-13] VITALS (43 sets, daily range): BP systolic 116–174; BP diastolic 62–134; PULSE 42–152; RESP 12–28; TEMP 36.7–37.1; O2SAT 83–100
--- NOTE | 2022-10-13 02:00 | PC.NURSE ---
Spoke with regarding patient going back into afib rvr, rate 120-140 BP 121/62. ordered Cardizem gtt.
[2022-10-13 04:04] LABS: Basophils % 0.4 %; Eosinophils # 0.2 10^3/uL (0.0-0.8); Hematocrit 42.1 % (37.0-47.0); Hemoglobin 12.8 g/dL (11.5-15.3); Lymphocytes # 1.9 10^3/uL (0.8-4.8); Lymphocytes % 20.4 %; Mean Corpuscular HGB Conc 30.4 g/dL (30.0-36.0); Mean Corpuscular Hemoglobin 30.3 pg (28.0-34.0); Mean Corpuscular Volume 99.8 fl (81-99); Mean Platelet Volume 10.6 fL (7.4-10.4); Monocytes # 0.7 10^3/uL (0.2-0.9); Monocytes % 7.8 %; Neutrophils # 6.27 10^3/uL (1.8-7.7); Neutrophils % 67.9 %; Nucleated Red Blood Cells % 0.3 %; Platelet Count 223 10^3/cmm (130-400); Red Blood Count 4.22 10^6/uL (4.1-5.3); Red Cell Distribution Width 15.9 % (12.1-15.1); White Blood Count 9.2 10^3/uL (4.0-10.0)
[2022-10-13 04:36] LABS: Alanine Aminotransferase 25 U/L (0-33); Alkaline Phosphatase 97 U/L (35-105); Anion Gap 12.8 (5-19); Aspartate Amino Transferase 18 U/L (0-32); Blood Urea Nitrogen 16 mg/dL (8-23); Calcium 9.5 mg/dL (8.5-10.5); Carbon Dioxide 34 mmol/L (22-29); Chloride 102 mmol/L (98-107); Globulin 3.2 g/dL (1.3-4.6); Glucose 159 mg/dL (65-115); Osmolality Calculated 305 mOsm/kg (285-295); Potassium 3.8 mmol/L (3.5-5.1); Sodium 145 mmol/L (136-145); Total Bilirubin 0.4 mg/dL (0.15-1.2); Total Protein 7.2 g/dL (6.6-8.7)
--- NOTE | 2022-10-13 04:43 | PC.NURSE ---
Spoke with regarding patient complaints of pain in her shoulders and feet, requesting her home pain medication, hydro/apap 5/325mg. ordered a one time dose. Also patients HR continues 140-150s on 15ml/hr of Cardizem. ordered a one time dose of PO metoprolol 25mg once.
[2022-10-13] MEDS: HYDROcodone-acetaminophen 5-325 mg Tablet 1 TAB PO ×2 (05:05→21:17)
[2022-10-13] MEDS: metoprolol tartrate 25 mg Tablet PO (05:05)
--- NOTE | 2022-10-13 07:54 | PC.NURSE ---
Cardizem drip stopped by night nurse during report. See MAR.
[2022-10-13] MEDS: albuterol 2.5 mg/3 mL Neb INHALATION (10:04)
[2022-10-13] MEDS: ARIPiprazole 10 mg Tablet 15 MG PO (10:46)
[2022-10-13] MEDS: sertraline 100 mg Tablet PO (10:46)
[2022-10-13] MEDS: lisinopril 5 mg Tablet PO (10:48)
[2022-10-13] MEDS: fenofibrate 145 mg Tablet PO (10:48)
[2022-10-13] MEDS: ticagrelor 90 mg Tablet PO ×2 (10:48→17:07)
[2022-10-13] MEDS: atorvastatin 40 mg Tablet 80 MG PO (10:49)
[2022-10-13] MEDS: cetirizine 10 mg Tablet PO (10:49)
[2022-10-13] MEDS: apixaban 5 mg Tablet PO ×2 (10:50→17:10)
[2022-10-13] MEDS: isosorbide mononitrate ER 60 mg Tablet 90 MG PO (10:50)
[2022-10-13] MEDS: FUROsemide 10 mg/mL SDV 4mL 40 MG IVP ×2 (10:51→23:39)
[2022-10-13] MEDS: metoprolol tartrate 50 mg Tablet PO (11:21)
--- NOTE | 2022-10-13 11:53 | PC.CHAP ---
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 wellness manager visit [] Patient/Family/Request visit [] Outpatient visit [] Follow-up visit [] Physician referral [] Code/Alert [x] Routine visit [] Staff referral [] Actively dying [] Patient sleeping [] Family support [] [] Out of room [] Palliative care [] [] Receiving care in room [] Pre-surgical visit [] Trauma [] Long length of stay [] ICU visit [] Other: Relational/Emotional Strength [x] Patient feels connected with others/family/visitors/staff [] Distress [] Loneliness/isolation [] Abandonment Spirituality of Patient [x] Person of Zoey [] Attends Orthodoxy of their Zoey [x] Believes in Prayer [] Reads Bible or Tenriism materials [] There are Spiritual issues to be addressed Gear Tooth Grinding Machine Operator Interventions [x] Prayer x[] Active listening [x] Non-anxious presence [x] Spiritual/emotional support [] Crisis/trauma care [] Spiritual counseling [] Bereavement support [] Provided bereavement packet [] Provided Bible/devotional materials [] Provided toy/stuffed animal, coloring book to patient or family member [] Provided Communion [] Anointing/[place] [] Salvation [x] Completed spiritual assessment [] Other: Impact on Illness or Injury [] Angry [] Fearful [] Anxious [] Often cries [] Exhaustion [] Unable to work [] Unable to attend taoism [] Unable to walk/stand [] Unable to read [] Unable to drive [] Unable to eat/drink [] Unable to sleep [] Unable to be with family [] Patient intubated [] Other: Summary Time spent with patient 10 min
[2022-10-13] MEDS: HYDROmorphone 1 mg/mL INJ 1 mL IVP (13:07)
--- NOTE | 2022-10-13 13:26 | ECG_ITS ---
[facility] Test Date: 2022-10-13 Pat Name: Katie Andrews Department: Room: 111 Gender: Female Drafter Automotive Design Layout: : 1955 Requested By: Sary Zavala Order Number: [id number] Dunia MD: Alberta Archer M.D. Measurements Intervals [place] Rate: 38 P: 0 GA: 0 QRS: 72 QRSD: 83 T: 76 QT: 459 QTc: 368 Interpretive Statements ATRIAL FIBRILLATION WITH SLOW VENTRICULAR RESPONSE ANTEROSEPTAL MYOCARDIAL INFARCTION , OF INDETERMINATE AGE [40+ ms Q WAVE IN V1-V4] CRITICAL TEST RESULT Compared to ECG 10/12/2022 21:46:57 Sinus rhythm no longer present Myocardial infarct finding still present Electronically Signed On 10-13-2022 20:31:46 HEAVY EQUIPMENT FIELD MECHANIC by Alberta Archer M.D. [id number]
--- NOTE | 2022-10-13 14:02 | PM.PN ---
Subjective Subjective: c/o chest and shoulder pain today, wants to resume her home dose of hydrocodone. Denies any shortness of breath. Vitals/I&O/Wt Last Vital Signs Temp 98.7 F 10/13/22 12:00 Pulse 70 10/13/22 09:57 Resp 12 10/13/22 13:07 BP 148/84 10/13/22 08:00 Pulse Ox 96 10/13/22 13:07 O2 Del Method 10/13/22 09:57 O2 Flow Rate 4 10/13/22 09:57 FiO2 36 10/12/22 21:28 10/12/22 10/13/22 10/13/22 22:59 06:59 14:59 Intake Total 2.833 / 2.833 1080.625 / 1083.458 615.75 / 615.75 Output Total 3400 / 3400 350 / 350 Balance 2.833 / 2.833 -2319.375 / -2316.542 265.75 / 265.75 Weight last 48 hrs Weight 104.326 kg Data 10/13/22 03:20 10/13/22 03:20 A&P Assessment and plan (1) Atherosclerotic heart disease of [place] coronary artery with other forms of angina pectoris: (2) SOB (shortness of breath): (3) Dyslipidemia: (4) Benign essential HTN: (5) Atrial fibrillation with RVR: (6) Diastolic heart failure: Plan #Shortness of breath, increased lower extremity edema #Acute on chronic congestive diastolic heart failure #CKD #Atrial fibrillation with RVR #COPD #Hypertension ? Chest x-ray does show pulmonary vascular congestion. BNP 1000 on arrival. Chest pain has now resolved. Troponin delta 2.17. ? Continue on Lasix 40 IV twice daily ? Cardizem drip disocntinued due to bradycardia with HR 40s. WIll hold next dose of metoprolol as HR drops to 39. ? Continue Eliquis, atorvastatin, gabapentin, Imdur, lisinopril ? Continue sertraline, Brilinta ? Continue to wean off oxygen as able -Most recent echo was done in July 2022 showing diastolic heart failure with normal EF. - recent stress test from 07/26 showed small to moderate area of persistent ?decreased tracer uptake in the anterior wall region, most likely represent ?attrition artifact.? Small area of inconsistent reversible defect in the ?inferolateral region Full code DVT prophylaxis: Eliquis Plan for today: C/o ongoing chest pain radiating into left shoulder. Bradycardia with HR 35-40. Denies dizziness. Will hold metoprolol for now. Off cardizem drip. Cardiology consult for persisting chest pain. Recent stress test findings as above. Resume home dose of percocet, add prn dilaudid to optimize pain control Attestations Medical Necessity Statement*: persisting chest pain, cardiology evaluation Coding Level of Care Code Acute Print Shop Chief Clerk for g Fwd Diagnoses Atherosclerotic heart disease of [place] coronary artery with other forms of angina pectoris I25.118 SOB (shortness of breath) R06.02 Dyslipidemia E78.5 Benign essential HTN I10 Atrial fibrillation with RVR I48.91 Diastolic heart failure I50.30
--- NOTE | 2022-10-13 14:53 | ECG_ITS ---
[facility] Test Date: 2022-10-13 Pat Name: Katie Andrews Department: Room: 111 Gender: Female Skip Pit Worker: : 1955 Requested By: Sary Zavala Order Number: [id number] Dunia MD: Alberta Archer M.D. Measurements Intervals [place] Rate: 66 P: 81 OK: 131 QRS: 12 QRSD: 79 T: 65 QT: 430 QTc: 453 Interpretive Statements Multifocal atrial rhythm ANTEROSEPTAL MYOCARDIAL INFARCTION , PROBABLY OLD [40+ ms Q WAVE IN V1-V4] Compared to ECG 10/13/2022 13:29:08 Atrial fibrillation no longer present Myocardial infarct finding still present Electronically Signed On 10-13-2022 20:32:21 COMMERCIAL COLLECTIONS SPECIALIST by Alberta Archer M.D. [id number]
[2022-10-13 15:08] LABS: Troponin(5th) Baseline 19 ng/L (0-10)
--- NOTE | 2022-10-13 15:27 | ECG_ITS ---
[facility] Test Date: 2022-10-13 Pat Name: Katie Andrews Department: Room: 111 Gender: Female Heavy Cleaner: : 1955 Requested By: Sary Zavala Order Number: [id number] Reading MD: Alberta Archer M.D. Measurements Intervals [place] Rate: 129 P: 0 DC: 0 QRS: 5 QRSD: 75 T: 61 QT: 321 QTc: 471 Interpretive Statements ATRIAL FIBRILLATION WITH RAPID VENTRICULAR RESPONSE SEPTAL MYOCARDIAL INFARCTION , PROBABLY OLD [40+ ms Q WAVE IN V1/V2] Compared to ECG 10/13/2022 14:53:57 Sinus rhythm no longer present Myocardial infarct finding still present Electronically Signed On 10-13-2022 20:38:23 ZIPPER MACHINE OPERATOR by Alberta Archer M.D. [id number]
--- NOTE | 2022-10-13 15:38 | PC.NURSE ---
notified provider of patient low hr dropping down in to the 30' patient is asymptomatic denies chest pain at this time instructions received to monitor patient if patient becomes symptomatic give atropine and place pacer pads and notify provider
--- NOTE | 2022-10-13 15:51 | PM.CONSULT ---
Providers/Reason For Consult Consulting Physician/Specialty*: Gilbert Maldonado MD/ Cardiology Reason for Consult*: Afib with RVR/ Chest pain Requesting Physician: Dr Zavala Attending Physician: Sary Zavala MD Primary Care Provider: Alexa Ayers APN History of Present Illness History of Present Illness Katie Andrews is a 66 year old female with past medical history of CAD, dyslipidemia, atrial fibrillation and diastolic heart failure who presented to the hospital with worsening shortness of breath and on and off chest discomfort for 3 days prior to admission. Movement makes her chest discomfort worse. She is unable to raise her left arm. She was found to be in A. fib with RVR. She was started on Cardizem drip. Today her heart rate dropped into the 40s. Rate controlling agents were stopped. At time of my evaluation she is back in A. fib with RVR with heart rates into 120s to 130s. She is diuresing well. Troponins did not go up significantly. She had a recent echocardiogram and Lexiscan. Stress test did not reveal significant area of ischemia. Review of Systems Const: Denies: fever(s), chills, fatigue or diaphoresis ENMT: Denies: throat pain, ear or mastoid pain, nasal discharge or nasal congestion Card: Reports: chest pain, edema, swelling of feet/ankles and dyspnea on exertion; Denies: palpitations, irregular heart rhythm, syncope or orthopnea Resp: Denies: dyspnea GI: Denies: abdominal pain, nausea or vomiting : Denies: flank pain, difficulty voiding, dysuria, urinary frequency or urinary urgency Skin/Breast: Denies: rash or pruritus Medications/Allergies Home Medications Medication Instructions Recorded Confirmed Last Taken Type albuterol sulfate 90 mcg/actuation 2 puff inhalation QID PRN 05/26/22 10/13/22 Unknown History aerosol inhaler shortness of breath or wheezing apixaban 5 mg tablet (Eliquis) 5 mg PO BID 05/26/22 10/13/22 Unknown History aripiprazole 15 mg tablet (Abilify) 15 mg PO QAM 05/26/22 10/13/22 Unknown History atorvastatin 80 mg tablet 80 mg PO BEDTIME 05/26/22 10/13/22 Unknown History cetirizine 10 mg tablet 10 mg PO QAM 05/26/22 10/13/22 Unknown History emtricitabine 200 mg-rilpivirine 1 tab PO BEDTIME 05/26/22 10/13/22 Unknown History 25 mg-tenofovir alafenam 25 mg tablet (Natalia) fenofibrate nanocrystallized 145 145 mg PO QAM 05/26/22 10/13/22 Unknown History mg tablet lisinopril 5 mg tablet 5 mg PO QAM 05/26/22 10/13/22 Unknown History nitroglycerin 0.4 mg sublingual 0.4 mg sublingual Q5M PRN chest 05/26/22 10/13/22 Unknown History tablet pain sertraline 100 mg tablet 100 mg PO QAM 05/26/22 10/13/22 Unknown History furosemide 40 mg tablet 40 mg PO DAILY #90 tabs 09/02/22 10/13/22 Unknown Rx Live Better Over 50 Multivit 1 tab PO DAILY 10/13/22 10/13/22 Unknown History [place] 2 tab PO QAM 10/13/22 10/13/22 Unknown History aspirin 325 mg tablet 325 mg PO DAILY PRN Chest Pain 10/13/22 10/13/22 Unknown History bupropion HCl 300 mg 24 hr tablet, 300 mg PO DAILY@12 10/13/22 10/13/22 Unknown History extended release carica papaya (Papaya Enzyme 1 tab PO DAILY 10/13/22 10/13/22 Unknown History tablet) celecoxib 100 mg capsule 100 mg PO BEDTIME 10/13/22 10/13/22 Unknown History cholecalciferol (vitamin D3) 100 8,000 unit PO QAM 10/13/22 10/13/22 Unknown History mcg (4,000 unit) capsule fluticasone fur. 100 mcg-umeclid 1 ea inhalation DAILY 10/13/22 10/13/22 Unknown History 62.5 mcg-vilant 25 mcg inhalat.powder (Trelegy Ellipta) fluticasone propionate 50 2 spray intranasal DAILY 10/13/22 10/13/22 Unknown History mcg/actuation nasal spray,suspension gabapentin 300 mg capsule 600 mg PO TID 10/13/22 10/13/22 Unknown History hydrocodone 5 mg-acetaminophen 325 1 tab PO .EVERY 4-6 HOURS PRN Pain 10/13/22 10/13/22 Unknown History mg tablet isosorbide mononitrate 60 mg 60 mg PO QAM 10/13/22 10/13/22 Unknown History tablet,extended release 24 hr levofloxacin 500 mg tablet 500 mg PO DAILY 10/13/22 10/13/22 10/11/22 History metformin 500 mg tablet 500 mg PO QAM 10/13/22 10/13/22 Unknown History metoprolol succinate 50 mg 50 mg PO DAILY 10/13/22 10/13/22 Unknown History tablet,extended release 24 hr omega-3 fatty acids-fish oil 684 1 cap PO DAILY 10/13/22 10/13/22 Unknown History mg-1,200 mg capsule,delayed release potassium chloride 8 mEq 16 meq PO BID 10/13/22 10/13/22 Unknown History tablet,extended release vitamin A-vitamin C-vit E-min 2 tab PO QA 10/13/22 10/13/22 Unknown History tablet zinc acetate 50 mg (zinc) capsule 50 mg PO DAILY 10/13/22 10/13/22 Unknown History Allergies Allergy/AdvReac Type Severity Reaction Status Date / Time No Known Allergies Allergy Verified 10/13/22 10:03 Current Medications Generic Name Dose Route Start Last Admin Trade Name Freq PRN Reason Stop Dose Admin Hydrocodone Bitart/Acetaminophen 1 tab 10/13/22 15:00 10/13/22 15:01 Hydrocodone-Acetaminophen 5-325 Mg Tablet PO Not Given TID RAINE Albuterol Sulfate 2.5 mg 10/13/22 09:53 10/13/22 10:04 Albuterol 2.5 Mg/3 Ml Neb INHALATION 2.5 mg Q4H.RESPIRATORY PRN Administration SHORTNESS OF BREATH Apixaban 5 mg 10/13/22 09:00 10/13/22 10:50 Apixaban 5 Mg Tablet PO 5 mg BID RAINE Administration Aripiprazole 15 mg 10/13/22 09:00 10/13/22 10:46 Aripiprazole 10 Mg Tablet PO 15 mg DAILY RAINE Administration Atorvastatin Calcium 80 mg 10/13/22 09:00 10/13/22 10:49 Atorvastatin 40 Mg Tablet PO 80 mg DAILY RAINE Administration Cetirizine HCl 10 mg 10/13/22 09:00 10/13/22 10:49 Cetirizine 10 Mg Tablet PO 10 mg DAILY RAINE Administration Fenofibrate 145 mg 10/13/22 09:00 10/13/22 10:48 Fenofibrate 145 Mg Tablet PO 145 mg DAILY RAINE Administration Furosemide 40 mg 10/13/22 10:30 10/13/22 10:51 Furosemide 10 Mg/Ml Sdv 4ml IVP 40 mg Q12H RAINE Administration Hydromorphone HCl 1 mg 10/13/22 13:00 10/13/22 13:07 Hydromorphone 1 Mg/Ml Inj 1 Ml IVP 1 mg Q6H RAINE Administration Diltiazem HCl 50 mg/ Sodium 50 mls @ 0 mls/hr 10/13/22 02:15 10/13/22 07:30 Chloride IV 0 mg/hr .Q0M RAINE 0 mls/hr Titration Protocol Per Protocol Isosorbide Mononitrate 90 mg 10/13/22 09:00 10/13/22 10:50 Isosorbide Mononitrate Er 60 Mg Tablet PO 90 mg DAILY RAINE Administration Lisinopril 5 mg 10/13/22 09:00 10/13/22 10:48 Lisinopril 5 Mg Tablet PO 5 mg DAILY RAINE Administration Metoprolol Tartrate 50 mg 10/13/22 09:00 10/13/22 11:21 Metoprolol Tartrate 50 Mg Tablet PO 50 mg BID@0900,2100 RAINE Administration Non-Formulary Medication 1 tab 10/13/22 01:00 10/13/22 01:31 Gdxvobictt-Jmfttcxb-Nykduy Ala [Odefsey] PO 1 tab 1700 RAINE Administration Sertraline HCl 100 mg 10/13/22 09:00 10/13/22 10:46 Sertraline 100 Mg Tablet PO 100 mg DAILY RAINE Administration Ticagrelor 90 mg 10/13/22 09:00 10/13/22 10:48 Ticagrelor 90 Mg Tablet PO 90 mg BID RAINE Administration PFSH Acute PFSH: Medical History CAD (coronary artery disease) COPD (chronic obstructive pulmonary disease) Hypertension Peripheral edema Surgical History History of PTCA Family History Father CAD (coronary artery disease), Onset Age: 46 [place] Cancer Dementia Diabetes Mother CAD (coronary artery disease), Onset Age: 82 Diabetes Denies family history of Clotting disorder Chronic kidney disease (CKD) Suicide Anesthesia complication Bleeding disorder Lung disease Stroke Social History Smoking and tobacco status: former smoker Alcohol intake: former Vitals/I&O/Wt Last Vital Signs Temp 98.7 F 10/13/22 12:00 Pulse 70 10/13/22 09:57 Resp 12 10/13/22 13:07 BP 148/84 10/13/22 08:00 Pulse Ox 96 10/13/22 13:07 O2 Del Method 10/13/22 09:57 O2 Flow Rate 4 10/13/22 09:57 FiO2 36 10/12/22 21:28 10/13/22 10/13/22 10/13/22 06:59 14:59 22:59 Intake Total 1080.625 / 1083.458 615.75 / 615.75 Output Total 3400 / 3400 350 / 350 Balance -2319.375 / -2316.542 265.75 / 265.75 Weight last 48 hrs Weight 230 lb Physical Exam Narrative: GENERAL: Patient is alert, awake and oriented x3. [] NECK: No jugular vein distension. [] HEENT: No cyanosis. No icterus. No pallor. [] HEART:Tachycardia, irregularly irregular LUNGS: Clear to auscultate bilaterally. [] CENTRAL NERVOUS SYSTEM: Grossly nonfocal. [] EXTREMITIES: Lower extremities with 1+ edema bilaterally. Pulses palpable in the lower extremities, both dorsalis pedis and posterior tibial. [] Data 10/13/22 03:20 10/13/22 03:20 A&P Assessment and plan (1) Atrial fibrillation with RVR: (2) Diastolic heart failure: (3) Atherosclerotic heart disease of [place] coronary artery with other forms of angina pectoris: (4) SOB (shortness of breath): (5) Dyslipidemia: (6) Benign essential HTN: Plan Patient's chest pain symptoms are atypical and associated with movement. She had a recent Lexiscan. Not showing any significant ischemia. We will medically manage it. Her rate controlling agents were stopped secondary to bradycardia and she is back in A. fib with RVR. Start amiodarone gtt. Continue Eliquis. She may have sick sinus syndrome given the fluctuation in heart rate and may benefit from pacemaker. Continue telemetry monitoring Thank you for involving us with care of this patient. We will continue to to follow. Please call with questions. Consult Attestations Medical Necessity Statement: Care expected to cross 2 midnights. Coding Level of Care Code Acute Carpentry Specialist for Irena Fwd Diagnoses Atrial fibrillation with RVR I48.91 Diastolic heart failure I50.30 Atherosclerotic heart disease of [place] coronary artery with other forms of angina pectoris I25.118 SOB (shortness of breath) R06.02 Dyslipidemia E78.5 Benign essential HTN I10
[2022-10-13 16:53] LABS: Troponin 5 2HR 18.72 ng/L (0-10)
[2022-10-13 16:55] LABS: Troponin 5 2HR Delta -0.28 ABS# (0-10)
--- NOTE | 2022-10-13 19:27 | ECG_ITS ---
[facility] Test Date: 2022-10-13 Pat Name: Katie Andrews Department: Room: 111 Gender: Female Skiver Uppers Or Linings: : 1955 Requested By: Sray Zavala Order Number: [id number] Dunia MD: Gilbert Maldonado M.D. Measurements Intervals [place] Rate: 127 P: 0 NC: 0 QRS: 24 QRSD: 72 T: 73 QT: 317 QTc: 461 Interpretive Statements ATRIAL FIBRILLATION WITH RAPID VENTRICULAR RESPONSE SEPTAL MYOCARDIAL INFARCTION , PROBABLY OLD [40+ ms Q WAVE IN V1/V2] Compared to ECG 10/13/2022 16:44:31 No significant changes Electronically Signed On 10-14-2022 12:02:02 FLOORING HELPER by Gilbert Maldonado M.D. [id number]
[2022-10-13 22:28] LABS: Troponin 5 6HR 14.65 ng/L (0-10)
--- NOTE | 2022-10-13 22:33 | PC.NURSE ---
1944- Patient afib RVR rate was inconsistent ranging from 70s to 130s with amiodorone drip infusing. However at 1944 patient had significant pause lasting approx. 5.4 seconds. Patient asymptomatic, went back into afib rhythm. Hospitalist contacted, and reviewed medications. Decision to hold oral metoprolol and continue IV amiodorone. At 2004 attempted to give IV medication via push, and IV was infiltrated. Unable to flush. Attempted to obtain IV access multiple times and initially was unable to. Finally, small 22G IV placed in right hand and medications resumed. 2129 IV in right hand infiltrated. brickmason supervisor at bedside, attempted multiple times and was able to obtain IV access to the left hand and medication resumed. 2209- Patient unhooked self from athletic monitor, oxygen, pulse ox and attempted to ambulate to the restroom. Did not use call light or unplug IV pole resulting in loss of IV again. IV cath intact, bleeding controlled. Patient at this time remains without IV access, awaiting dope dry house operator placement via US. HR remains Afib rate 110-130s
[2022-10-13 22:44] LABS: Troponin 5 6HR Delta -4.35 ng/L (0-12)
[2022-10-14] VITALS (18 sets, daily range): BP systolic 133–178; BP diastolic 70–119; PULSE 37–162; RESP 11–22; TEMP 36.4–37.3; O2SAT 90–98
--- NOTE | 2022-10-14 02:30 | PC.NURSE ---
2300- Saturator Operator at bedside to place IV via US. On monitor, patient was noted to have converted to sinus bina in the 40s without amiodorone drip infusing (no IV access). Hospitalist was contacted once IV access was obtained. Will hold amio, and monitor HR. 0000- Patient noted to have converted back to afib RVR rate 100-130s. Hospitalist contacted, will resume drip at decreased rate of 0.5. 0230- Patient noted to convert again ranging from mid 30s-80s. Will continue amio at this time unless bina rate becomes more consistent or sustained.
--- NOTE | 2022-10-14 03:33 | PC.NURSE ---
Rounded on patient, again was noted to have removed IV previously placed. It is unclear exactly what time it was removed. Patient remains in sinus bina/rhythm, rate anywhere from 28-80. Asymptomatic with it. Awaiting second US IV placement.
[2022-10-14 05:49] LABS: Basophils % 0.4 %; Eosinophils # 0.1 10^3/uL (0.0-0.8); Eosinophils % 1.5 %; Hematocrit 43.8 % (37.0-47.0); Hemoglobin 13.6 g/dL (11.5-15.3); Lymphocytes # 1.2 10^3/uL (0.8-4.8); Lymphocytes % 12.4 %; Mean Corpuscular HGB Conc 31.1 g/dL (30.0-36.0); Mean Corpuscular Hemoglobin 30.6 pg (28.0-34.0); Mean Corpuscular Volume 98.4 fl (81-99); Mean Platelet Volume 10.4 fL (7.4-10.4); Monocytes # 0.7 10^3/uL (0.2-0.9); Monocytes % 7.6 %; Neutrophils # 7.19 10^3/uL (1.8-7.7); Nucleated Red Blood Cells % 0 %; Platelet Count 229 10^3/cmm (130-400); Red Blood Count 4.45 10^6/uL (4.1-5.3); Red Cell Distribution Width 15.6 % (12.1-15.1); White Blood Count 9.3 10^3/uL (4.0-10.0)
--- NOTE | 2022-10-14 06:01 | PC.NURSE ---
CHIPPER FEEDER to the floor, attempted US guided IV placement multiple times without success. 0600- Second RN from ICU attempted and was able to place IV. Patient remain SB on the monitor rate 45 since 0330. Called and discussed continuation of IV amiodorone with , will hold at this time and continue to monitor rhythm. Will call back with any changes and for further orders.
[2022-10-14 06:33] LABS: Alanine Aminotransferase 22 U/L (0-33); Alkaline Phosphatase 105 U/L (35-105); Anion Gap 15.1 (5-19); Aspartate Amino Transferase 21 U/L (0-32); Blood Urea Nitrogen 18 mg/dL (8-23); Calcium 9.8 mg/dL (8.5-10.5); Carbon Dioxide 32 mmol/L (22-29); Chloride 102 mmol/L (98-107); Globulin 3.3 g/dL (1.3-4.6); Glomerular Filtration Rate 55.8 mL/min (90-130); Glucose 116 mg/dL (65-115); Osmolality Calculated 303 mOsm/kg (285-295); Potassium 4.1 mmol/L (3.5-5.1); Sodium 145 mmol/L (136-145); Total Bilirubin 0.5 mg/dL (0.15-1.2); Total Protein 7.3 g/dL (6.6-8.7)
--- NOTE | 2022-10-14 06:36 | PC.NURSE ---
0611- Patient was noted on the monitor to convert back into a afib RVR rate from 110-130s. BP remained elevated. Continued close monitor and without intervention, patient covered back to sinus bina at 0633 rate 31-70.
[2022-10-14 06:45] LABS: Creatinine Clr Calc Pharmacy 66.8883
[2022-10-14] MEDS: acetaminophen 325 mg Tablet 650 MG PO (06:55)
--- NOTE | 2022-10-14 08:19 | PM.PN ---
Subjective Subjective: The patient is complaining of headache and uncontrolled blood pressure. No chest pain. Has a baseline shortness of breath. No fever or chills. Telemetry shows atrial fibrillation rapid ventricular rate. She had episodes of sinus bradycardia with a heart rate in the 40s and a 4-second pause last night apparently she was on IV amiodarone. Prior to starting amiodarone, she was tried on Cardizem IV. She was taking metoprolol 50 mg p.o. twice daily at home. This morning she seems to be more tachycardic Medications: Medication Review Details: Current Medications Acetaminophen (Acetaminophen 325 Mg Tablet) 650 mg PO Q6H PRN PRN Reason: Mild/Mod Pain Or Temp >/= 101 Last Admin: 10/14/22 06:55 Dose: 650 mg Hydrocodone Bitart/Acetaminophen (Hydrocodone-Acetaminophen 5-325 Mg Tablet) 1 tab PO TID [facility] Last Admin: 10/13/22 21:17 Dose: 1 tab Albuterol Sulfate (Albuterol 2.5 Mg/3 Ml Neb) 2.5 mg INHALATION Q4H.RESPIRATORY PRN PRN Reason: SHORTNESS OF BREATH Last Admin: 10/13/22 10:04 Dose: 2.5 mg Apixaban (Apixaban 5 Mg Tablet) 5 mg PO BID [facility] Last Admin: 10/13/22 17:10 Dose: 5 mg Aripiprazole (Aripiprazole 10 Mg Tablet) 15 mg PO DAILY [facility] Last Admin: 10/13/22 10:46 Dose: 15 mg Atorvastatin Calcium (Atorvastatin 40 Mg Tablet) 80 mg PO DAILY [facility] Last Admin: 10/13/22 10:49 Dose: 80 mg Cetirizine HCl (Cetirizine 10 Mg Tablet) 10 mg PO DAILY [facility] Last Admin: 10/13/22 10:49 Dose: 10 mg Fenofibrate (Fenofibrate 145 Mg Tablet) 145 mg PO DAILY [facility] Last Admin: 10/13/22 10:48 Dose: 145 mg Furosemide (Furosemide 10 Mg/Ml Sdv 4ml) 40 mg IVP Q12H [facility] Last Admin: 10/13/22 23:39 Dose: 40 mg Hydromorphone HCl (Hydromorphone 1 Mg/Ml Inj 1 Ml) 1 mg IVP Q6H PRN PRN Reason: PAIN Amiodarone HCl 900 mg/Dextrose/ IV Miscellaneous Supplies 518 mls @ 0 mls/hr IV .Q0M [facility]; Protocol Last Titration: 10/14/22 00:10 Dose: 0.5 mg/min, 17.27 mls/hr Isosorbide Mononitrate (Isosorbide Mononitrate Er 60 Mg Tablet) 90 mg PO DAILY [facility] Last Admin: 10/13/22 10:50 Dose: 90 mg Lisinopril (Lisinopril 5 Mg Tablet) 5 mg PO DAILY [facility] Last Admin: 10/13/22 10:48 Dose: 5 mg Metoprolol Tartrate (Metoprolol Tartrate 50 Mg Tablet) 50 mg PO BID@0900,2100 [facility] Last Admin: 10/13/22 11:21 Dose: 50 mg Non-Formulary Medication (Anqbxenzdn-Dsgvfmce-Sqvxzc Ala [Odefsey]) 1 tab PO 1700 [facility] Last Admin: 10/13/22 17:09 Dose: 1 tab Ondansetron HCl (Ondansetron 2 Mg/Ml Sdv 2 Ml) 4 mg IVP Q8H PRN PRN Reason: vomiting, or N/V if npo Sertraline HCl (Sertraline 100 Mg Tablet) 100 mg PO DAILY [facility] Last Admin: 10/13/22 10:46 Dose: 100 mg Ticagrelor (Ticagrelor 90 Mg Tablet) 90 mg PO BID [facility] Last Admin: 10/13/22 17:07 Dose: 90 mg Vitals/I&O/Wt Last Vital Signs Temp 98.3 F 10/14/22 07:53 Pulse 65 10/14/22 07:53 Resp 22 H 10/14/22 07:53 BP 169/81 10/14/22 04:33 Pulse Ox 96 10/14/22 07:53 O2 Del Method 10/14/22 07:53 O2 Flow Rate 2 10/14/22 07:53 FiO2 36 10/12/22 21:28 10/13/22 10/14/22 10/14/22 22:59 06:59 14:59 Intake Total 562 / 1177.75 216.963 / 1394.713 Output Total 750 / 1100 2100 / 3200 Balance -188 / 77.75 -1883.037 / -1805.287 Weight last 48 hrs Weight 230 lb Physical Exam Narrative: GENERAL: The patient is alert and oriented times three. Not in any acute distress. Obese HEENT: No significant pallor, icterus or lymphadenopathy.Oral cavity: There are no mucous membrane lesions. NECK: Trachea appears to be central. No masses noted. No JVD or thyromegaly appreciated. RESPIRATORY: Chest is symmetrical. No intercostals muscle retraction or any accessory muscle activation. There is no chest wall tenderness. Breath sounds are heard bilaterally. No rales or rhonchi heard. No evidence of any consolidation. BREASTS: Deferred. HEART: The heart sounds are normal. No S3 or S4. No significant murmurs. No pericardial rub ABDOMEN: No vessel pulsations or distention. No tenderness. No organomegaly appreciated. Bowel sounds are normally heard. : Deferred. RECTAL: Deferred. LYMPHATIC: No lymphadenopathy noted in the neck. EXTREMITIES: No edema or cyanosis. No clubbing. MUSCULOSKELETAL: No acute joint deformities or swelling SKIN: There are no significant rashes or ecchymosis NEUROPSYCHIATRIC: The patient is alert and oriented x3. Appears to be drowsy. Apparently she did not sleep well last night. She also has sleep apnea Data 10/14/22 04:33 10/14/22 04:33 Other Labs: Laboratory Last Values WBC 9.3 10^3/uL (4.0-10.0) 10/14/22 04:33 RBC 4.45 10^6/uL (4.1-5.3) 10/14/22 04:33 Hgb 13.6 g/dL (11.5-15.3) 10/14/22 04:33 Hct 43.8 % (37.0-47.0) 10/14/22 04:33 MCV 98.4 fl (81-99) 10/14/22 04:33 MCH 30.6 pg (28.0-34.0) 10/14/22 04:33 MCHC 31.1 g/dL (30.0-36.0) 10/14/22 04:33 RDW 15.6 % (12.1-15.1) H 10/14/22 04:33 Plt Count 229 10^3/cmm (130-400) 10/14/22 04:33 MPV 10.4 fL (7.4-10.4) 10/14/22 04:33 Neut % (Auto) 77.0 % 10/14/22 04:33 Lymph % (Auto) 12.4 % 10/14/22 04:33 Wheeler % (Auto) 7.6 % 10/14/22 04:33 Eos % (Auto) 1.5 % 10/14/22 04:33 Baso % (Auto) 0.4 % 10/14/22 04:33 Neut # (Auto) 7.19 10^3/uL (1.8-7.7) 10/14/22 04:33 Lymph # (Auto) 1.2 10^3/uL (0.8-4.8) 10/14/22 04:33 Wheeler # (Auto) 0.7 10^3/uL (0.2-0.9) 10/14/22 04:33 Eos # (Auto) 0.1 10^3/uL (0.0-0.8) 10/14/22 04:33 Baso # (Auto) 0.0 10^3/uL (0.0-0.1) 10/14/22 04:33 Nucleated RBC % (auto) 0 % 10/14/22 04:33 Nucleated RBCs # 0.0 /100WBC 10/14/22 04:33 Sodium 145 mmol/L (136-145) 10/14/22 04:33 Potassium 4.1 mmol/L (3.5-5.1) 10/14/22 04:33 Chloride 102 mmol/L (98-107) 10/14/22 04:33 Carbon Dioxide 32 mmol/L (22-29) H 10/14/22 04:33 Anion Gap 15.1 (5-19) 10/14/22 04:33 BUN 18 mg/dL (8-23) 10/14/22 04:33 Creatinine 1.0 mg/dL (0.5-0.9) H 10/14/22 04:33 GFR Calculation 55.8 mL/min (90-130) L 10/14/22 04:33 Glucose 116 mg/dL (65-115) H 10/14/22 04:33 Calculated Osmolality 303 mOsm/kg (285-295) H 10/14/22 04:33 Calcium 9.8 mg/dL (8.5-10.5) 10/14/22 04:33 Magnesium 2.0 mg/dL (1.7-2.3) 10/14/22 04:33 Total Bilirubin 0.5 mg/dL (0.15-1.2) 10/14/22 04:33 AST 21 U/L (0-32) 10/14/22 04:33 ALT 22 U/L (0-33) 10/14/22 04:33 Alkaline Phosphatase 105 U/L (35-105) 10/14/22 04:33 Troponin T Baseline 19 ng/L (0-10) H 10/13/22 14:01 Troponin T 120 Minute 18.72 ng/L (0-10) H 10/13/22 16:02 Delta Troponin T -0.28 ABS# (0-10) L 10/13/22 16:02 Troponin T Hi Sens 6Hr 14.65 ng/L (0-10) H 10/13/22 21:00 Troponin T Hi Sens 6Hr Delta -4.35 ng/L (0-12) L 10/13/22 21:00 NT-Pro-B Natriuret Pep 1000 pg/mL (0-125) H 10/12/22 18:25 Total Protein 7.3 g/dL (6.6-8.7) 10/14/22 04:33 Albumin 4.0 g/dL (3.5-5.2) 10/14/22 04:33 Globulin 3.3 g/dL (1.3-4.6) 10/14/22 04:33 Procalcitonin 0.06 ng/mL (0-0.5) 10/12/22 18:25 TSH 1.07 uIU/mL (0.27-4.20) 10/12/22 18:25 TSH Cancelled 10/12/22 18:25 MPI: My impression: ?1.? Myocardial perfusion imaging revealing small to moderate area of persistent ?decreased tracer uptake in the anterior wall region, most likely represent ?attrition artifact.? Small area of inconsistent reversible defect in the ?inferolateral region, possibly related to attenuation artifact. ?2.? Normal LV ejection fraction of 60%. ?3.? LV wall motion analysis revealing no gross wall motion abnormalities. ?4.? LV volume, upper limit of normal ?Possibly no significant coronary ischemia, based on the above findings Echo: My impression: 07/28/2022 ?Normal left ventricular size and systolic function, EF 71 %.mild ?left ventricular hypertrophy. No regional wall motion ?abnormalities. Grade III/IV diastolic dysfunction (restrictive ?filling pattern), severely elevated filling pressures. ?Mildly increased left atrial size. ?Thickened mitral valve. ?There is no pericardial effusion. ?There are no intracardiac masses. ?No previous study is available for comparison. A&P Assessment and plan (1) Atrial fibrillation with RVR: Betzaida Castellano start her on Betapace 80 mg p.o. twice daily. We will discontinue the metoprolol and amiodarone. She will need to be closely monitored on telemetry. We will do daily EKG x3. (2) Atherosclerotic heart disease of [place] coronary artery without angina pectoris: Since the patient has no specific symptoms and also since she did not have any significant ischemia based on the recent perfusion scan, may hold off on any further intervention. (3) Dyslipidemia: May continue on the current medications. (4) Accelerated hypertension: Will optimize antihypertensive medications. (5) Diastolic heart failure: Careful IV diuresis to be continued. Plan Based on the results of the above tests and the patient's clinical progress, further management decisions will be made Attestations Medical Necessity Statement*: Patient requires continued hospital stay for close monitoring and further management Coding Level of Care Code Acute Live In Housekeeper for Chg Fwd History Expanded Problem Focused Exam Detailed Medical Decision Making Moderate Complexity Diagnoses Atrial fibrillation with RVR I48.91 Atherosclerotic heart disease of [place] coronary artery without angina pectoris I25.10 Dyslipidemia E78.5 Accelerated hypertension I10 Diastolic heart failure I50.30
[2022-10-14] MEDS: ARIPiprazole 10 mg Tablet 15 MG PO (08:33)
[2022-10-14] MEDS: HYDROcodone-acetaminophen 5-325 mg Tablet 1 TAB PO ×3 (08:34→20:23)
[2022-10-14] MEDS: isosorbide mononitrate ER 60 mg Tablet 90 MG PO (08:34)
[2022-10-14] MEDS: ticagrelor 90 mg Tablet PO ×2 (08:34→17:02)
[2022-10-14] MEDS: fenofibrate 145 mg Tablet PO (08:34)
[2022-10-14] MEDS: sertraline 100 mg Tablet PO (08:34)
[2022-10-14] MEDS: lisinopril 5 mg Tablet PO (08:35)
[2022-10-14] MEDS: cetirizine 10 mg Tablet PO (08:35)
[2022-10-14] MEDS: apixaban 5 mg Tablet PO ×2 (08:35→17:02)
[2022-10-14] MEDS: atorvastatin 40 mg Tablet 80 MG PO (08:35)
[2022-10-14] MEDS: lisinopril 10 mg Tablet PO (09:32)
[2022-10-14] MEDS: FUROsemide 10 mg/mL SDV 4mL 40 MG IVP ×2 (09:32→20:23)
[2022-10-14] MEDS: sotalol 80 mg Tablet PO (09:32)
[2022-10-14] MEDS: albuterol 2.5 mg/3 mL Neb INHALATION (11:41)
[2022-10-14 16:20] LABS: ABG PH Result 7.32 (7.35-7.45); Base Excess ABG 7.9 mmol/L (-2.0-2.0); Blood Gas Allen Test Pos; Blood Gas Sample Site Radial, right; Blood Gas Sample Type Arterial; HCO3 ABG 36.7 mmol/L (22-26); Oxygen Device NC; PO2 ABG 44.3 mmHg (80.0-100.0)
[2022-10-14 16:27] LABS: ABG PCO2 71.6 mmHg (35-45)
--- NOTE | 2022-10-14 17:52 | PM.PN ---
Subjective Subjective: Overnight had a 4-second pause. Heart rate today is ranging between 45 to 70 bpm. Saturating on 3 3 L nasal cannula. Blood pressure is maintained. She is asymptomatic with her bradycardia and pauses. Taken off amiodarone infusion per cardiology recommendations and started on Betapace instead. Medications: Reviewed: Yes Medication Review Details: Current Medications Acetaminophen (Acetaminophen 325 Mg Tablet) 650 mg PO Q6H PRN PRN Reason: Mild/Mod Pain Or Temp >/= 101 Last Admin: 10/14/22 06:55 Dose: 650 mg Hydrocodone Bitart/Acetaminophen (Hydrocodone-Acetaminophen 5-325 Mg Tablet) 1 tab PO TID [facility] Last Admin: 10/13/22 21:17 Dose: 1 tab Albuterol Sulfate (Albuterol 2.5 Mg/3 Ml Neb) 2.5 mg INHALATION Q4H.RESPIRATORY PRN PRN Reason: SHORTNESS OF BREATH Last Admin: 10/13/22 10:04 Dose: 2.5 mg Apixaban (Apixaban 5 Mg Tablet) 5 mg PO BID [facility] Last Admin: 10/13/22 17:10 Dose: 5 mg Aripiprazole (Aripiprazole 10 Mg Tablet) 15 mg PO DAILY [facility] Last Admin: 10/13/22 10:46 Dose: 15 mg Atorvastatin Calcium (Atorvastatin 40 Mg Tablet) 80 mg PO DAILY [facility] Last Admin: 10/13/22 10:49 Dose: 80 mg Cetirizine HCl (Cetirizine 10 Mg Tablet) 10 mg PO DAILY [facility] Last Admin: 10/13/22 10:49 Dose: 10 mg Fenofibrate (Fenofibrate 145 Mg Tablet) 145 mg PO DAILY [facility] Last Admin: 10/13/22 10:48 Dose: 145 mg Furosemide (Furosemide 10 Mg/Ml Sdv 4ml) 40 mg IVP Q12H [facility] Last Admin: 10/13/22 23:39 Dose: 40 mg Hydromorphone HCl (Hydromorphone 1 Mg/Ml Inj 1 Ml) 1 mg IVP Q6H PRN PRN Reason: PAIN Amiodarone HCl 900 mg/Dextrose/ IV Miscellaneous Supplies 518 mls @ 0 mls/hr IV .Q0M [facility]; Protocol Last Titration: 10/14/22 00:10 Dose: 0.5 mg/min, 17.27 mls/hr Isosorbide Mononitrate (Isosorbide Mononitrate Er 60 Mg Tablet) 90 mg PO DAILY [facility] Last Admin: 10/13/22 10:50 Dose: 90 mg Lisinopril (Lisinopril 5 Mg Tablet) 5 mg PO DAILY [facility] Last Admin: 10/13/22 10:48 Dose: 5 mg Metoprolol Tartrate (Metoprolol Tartrate 50 Mg Tablet) 50 mg PO BID@0900,2100 [facility] Last Admin: 10/13/22 11:21 Dose: 50 mg Non-Formulary Medication (Vpkwmqeams-Pzkuiqzo-Oxmakh Ala [Odefsey]) 1 tab PO 1700 [facility] Last Admin: 10/13/22 17:09 Dose: 1 tab Ondansetron HCl (Ondansetron 2 Mg/Ml Sdv 2 Ml) 4 mg IVP Q8H PRN PRN Reason: vomiting, or N/V if npo Sertraline HCl (Sertraline 100 Mg Tablet) 100 mg PO DAILY [facility] Last Admin: 10/13/22 10:46 Dose: 100 mg Ticagrelor (Ticagrelor 90 Mg Tablet) 90 mg PO BID [facility] Last Admin: 10/13/22 17:07 Dose: 90 mg Vitals/I&O/Wt Last Vital Signs Temp 97.6 F 10/14/22 15:59 Pulse 87 10/14/22 17:17 Resp 15 10/14/22 15:59 BP 167/99 10/14/22 17:17 Pulse Ox 95 10/14/22 17:17 O2 Del Method 10/14/22 11:41 O2 Flow Rate 3 10/14/22 11:41 FiO2 36 10/12/22 21:28 10/14/22 10/14/22 10/14/22 06:59 14:59 22:59 Intake Total 216.963 / 1394.713 120 / 120 Output Total 2100 / 3200 150 / 150 Balance -1883.037 / -1805.287 -30 / -30 Physical Exam Narrative: General: No acute distress, AO x3 HEENT: PERRLA, pupils bilaterally equal and reactive, pallors not present Chest: Normal vesicular breath sounds, no added sounds, equal good air entry bilaterally CVS: S1-S2 regular, no murmurs, no tachycardia, no gallops, no rubs Abdomen: Soft, nontender, no organomegaly, bowel sounds present Neuro: No focal deficits, no facial deformity, AO x3, power 5/5 in all limbs Data 10/14/22 04:33 10/14/22 04:33 A&P Assessment and plan (1) Atherosclerotic heart disease of [place] coronary artery with other forms of angina pectoris: (2) SOB (shortness of breath): (3) Dyslipidemia: (4) Benign essential HTN: (5) Atrial fibrillation with RVR: (6) Diastolic heart failure: Plan #Shortness of breath, increased lower extremity edema #Acute on chronic congestive diastolic heart failure Continue diuresis with Lasix 40 mg IV every 12 hours Net negative by 2 L. Good urine output, kidney function stable with creatinine at 1.0. #Atrial fibrillation with RVR Currently heart rate is ranging between 45 to 72 bpm. Discontinued amiodarone infusion today. Started on sotalol per cardiology recommendations. Patient is currently asymptomatic with her bradycardia. #COPD, not currently excaerbated #Hypertension Attestations Medical Necessity Statement*: starting sotalol today Coding Level of Care Code Acute Wrapping Checker for Irena Jacksond Diagnoses Atherosclerotic heart disease of [place] coronary artery with other forms of angina pectoris I25.118 SOB (shortness of breath) R06.02 Dyslipidemia E78.5 Benign essential HTN I10 Atrial fibrillation with RVR I48.91 Diastolic heart failure I50.30
--- NOTE | 2022-10-14 18:08 | ECG_ITS ---
[facility] Test Date: 2022-10-14 Pat Name: Katie Andrews Department: Room: 111 Gender: Female Audio Director: : 1955 Requested By: Alberta Archer Order Number: [id number] Dunia MD: Gilbert Maldonado M.D. Measurements Intervals [place] Rate: 62 P: 57 NE: 136 QRS: 30 QRSD: 82 T: 59 QT: 480 QTc: 488 Interpretive Statements SINUS RHYTHM WITH SINUS ARRHYTHMIA ANTEROSEPTAL MYOCARDIAL INFARCTION , OF INDETERMINATE AGE [40+ ms Q WAVE IN V1-V4] Compared to ECG 10/13/2022 21:38:30 Atrial fibrillation no longer present Myocardial infarct finding still present Electronically Signed On 10-15-2022 8:15:38 CHROME PLATER by Gilbert Maldonado M.D. [id number]
--- NOTE | 2022-10-14 19:18 | PC.NURSE ---
dr galindo notified of frequent heart rates dropping to 30's to 50's for majority of day.he ordered to hold sotolol for tonight's dose
[2022-10-15] VITALS (15 sets, daily range): BP systolic 104–150; BP diastolic 56–96; PULSE 44–123; RESP 14–21; TEMP 36.7–36.9; O2SAT 92–97
--- NOTE | 2022-10-15 08:30 | ECG_ITS ---
[facility] Test Date: 2022-10-15 Pat Name: Katie Andrews Department: Room: 111 Gender: Female Supervisor [employer]: : 1955 Requested By: Alberta Archer Order Number: [id number] Dunia MD: Alberta Archer M.D. Measurements Intervals [place] Rate: 78 P: 57 MI: 136 QRS: 20 QRSD: 73 T: 81 QT: 375 QTc: 429 Interpretive Statements SINUS RHYTHM ANTEROSEPTAL MYOCARDIAL INFARCTION , OF INDETERMINATE AGE [40+ ms Q WAVE IN V1-V4] Compared to ECG 10/14/2022 18:14:04 Sinus arrhythmia no longer present Myocardial infarct finding still present Electronically Signed On 10-15-2022 21:41:22 SUBGRADE ROLLER OPERATOR by Alberta Archer M.D. [id number]
[2022-10-15] MEDS: nitroglycerin 0.4 mg sublingual Tablet SUBLINGUAL ×2 (08:41→08:53)
[2022-10-15] MEDS: nitroglycerin 1 gm/inch oint Pkt 0.5 INCH TOPICAL ×3 (08:41→21:30)
[2022-10-15] MEDS: ARIPiprazole 10 mg Tablet 15 MG PO (09:23)
[2022-10-15] MEDS: apixaban 5 mg Tablet PO (09:23)
[2022-10-15] MEDS: sertraline 100 mg Tablet PO (09:23)
[2022-10-15] MEDS: isosorbide mononitrate ER 60 mg Tablet 90 MG PO (09:23)
[2022-10-15] MEDS: ticagrelor 90 mg Tablet PO ×2 (09:23→18:22)
[2022-10-15] MEDS: cetirizine 10 mg Tablet PO (09:23)
[2022-10-15] MEDS: atorvastatin 40 mg Tablet 80 MG PO (09:23)
[2022-10-15] MEDS: HYDROcodone-acetaminophen 5-325 mg Tablet 1 TAB PO ×3 (09:23→19:49)
[2022-10-15] MEDS: fenofibrate 145 mg Tablet PO (09:24)
[2022-10-15] MEDS: HYDROmorphone 1 mg/mL INJ 1 mL IVP (09:24)
--- NOTE | 2022-10-15 10:07 | PM.PN ---
Subjective Subjective: Patient has been having episodes of l bradycardia with a heart rate in the 20s and 30s. It happens sometimes even while she is awake. Also has been having episodes of tachycardia. This morning she had an episode of chest pain lasting for 10 to 15 minutes. The pain subsided after 2 sublingual nitro. Medications: Medication Review Details: Current Medications Acetaminophen (Acetaminophen 325 Mg Tablet) 650 mg PO Q6H PRN PRN Reason: Mild/Mod Pain Or Temp >/= 101 Last Admin: 10/14/22 06:55 Dose: 650 mg Hydrocodone Bitart/Acetaminophen (Hydrocodone-Acetaminophen 5-325 Mg Tablet) 1 tab PO TID [facility] Last Admin: 10/15/22 09:23 Dose: 1 tab Albuterol Sulfate (Albuterol 2.5 Mg/3 Ml Neb) 2.5 mg INHALATION Q4H.RESPIRATORY PRN PRN Reason: SHORTNESS OF BREATH Last Admin: 10/14/22 11:41 Dose: 2.5 mg Apixaban (Apixaban 5 Mg Tablet) 5 mg PO BID [facility] Last Admin: 10/15/22 09:23 Dose: 5 mg Aripiprazole (Aripiprazole 10 Mg Tablet) 15 mg PO DAILY [facility] Last Admin: 10/15/22 09:23 Dose: 15 mg Atorvastatin Calcium (Atorvastatin 40 Mg Tablet) 80 mg PO DAILY [facility] Last Admin: 10/15/22 09:23 Dose: 80 mg Cetirizine HCl (Cetirizine 10 Mg Tablet) 10 mg PO DAILY [facility] Last Admin: 10/15/22 09:23 Dose: 10 mg Fenofibrate (Fenofibrate 145 Mg Tablet) 145 mg PO DAILY [facility] Last Admin: 10/15/22 09:24 Dose: 145 mg Furosemide (Furosemide 10 Mg/Ml Sdv 4ml) 40 mg IVP Q12H [facility] Last Admin: 10/14/22 20:23 Dose: 40 mg Hydromorphone HCl (Hydromorphone 1 Mg/Ml Inj 1 Ml) 1 mg IVP Q6H PRN PRN Reason: PAIN Last Admin: 10/15/22 09:24 Dose: 1 mg Sodium Chloride (Sodium Chloride 0.9%) 1,000 mls @ 50 mls/hr IV .Q20H ONE Stop: 10/16/22 05:54 Isosorbide Mononitrate (Isosorbide Mononitrate Er 60 Mg Tablet) 90 mg PO DAILY [facility] Last Admin: 10/15/22 09:23 Dose: 90 mg Metoprolol Tartrate (Metoprolol Tartrate 50 Mg Tablet) 50 mg PO BID@0900,2100 [facility] Last Admin: 10/13/22 11:21 Dose: 50 mg Nitroglycerin (Nitroglycerin 0.4 Mg Sublingual Tablet) 0.4 mg SUBLINGUAL Q5M PRN PRN Reason: CHEST PAIN Last Admin: 10/15/22 08:53 Dose: 0.4 mg Nitroglycerin (Nitroglycerin 1 Gm/Inch Oint Pkt) 0.5 inch TOPICAL Q6H [facility] Last Admin: 10/15/22 08:41 Dose: 0.5 inch Non-Formulary Medication (Xzsioeqtdd-Jjprhhls-Jwtgmn Ala [Odefsey]) 1 tab PO 1700 [facility] Last Admin: 10/14/22 18:03 Dose: Not Given Ondansetron HCl (Ondansetron 2 Mg/Ml Sdv 2 Ml) 4 mg IVP Q8H PRN PRN Reason: vomiting, or N/V if npo Sertraline HCl (Sertraline 100 Mg Tablet) 100 mg PO DAILY [facility] Last Admin: 10/15/22 09:23 Dose: 100 mg Sotalol HCl (Sotalol 80 Mg Tablet) 80 mg PO BID@0900,2100 [facility] Stop: 10/20/22 23:59 Last Admin: 10/14/22 09:32 Dose: 80 mg Ticagrelor (Ticagrelor 90 Mg Tablet) 90 mg PO BID [facility] Last Admin: 10/15/22 09:23 Dose: 90 mg Vitals/I&O/Wt Last Vital Signs Temp 98.0 F 10/15/22 07:40 Pulse 76 10/15/22 07:53 Resp 18 10/15/22 09:24 BP 143/83 10/15/22 07:40 Pulse Ox 92 10/15/22 09:24 O2 Del Method 10/15/22 07:53 O2 Flow Rate 3 10/15/22 07:53 FiO2 36 10/14/22 20:00 10/14/22 10/15/22 10/15/22 22:59 06:59 14:59 Intake Total 480 / 600 120 / 720 360 / 360 Output Total 100 / 250 Balance 380 / 350 120 / 470 360 / 360 Physical Exam Narrative: GENERAL: The patient is alert and oriented times three. Not in any acute distress. Obese HEENT: No significant pallor, icterus or lymphadenopathy.Oral cavity: There are no mucous membrane lesions. NECK: Trachea appears to be central. No masses noted. No JVD or thyromegaly appreciated. RESPIRATORY: Chest is symmetrical. No intercostals muscle retraction or any accessory muscle activation. There is no chest wall tenderness. Breath sounds are heard bilaterally. No rales or rhonchi heard. No evidence of any consolidation. BREASTS: Deferred. HEART: The heart sounds are normal. No S3 or S4. No significant murmurs. No pericardial rub ABDOMEN: No vessel pulsations or distention. No tenderness. No organomegaly appreciated. Bowel sounds are normally heard. : Deferred. RECTAL: Deferred. LYMPHATIC: No lymphadenopathy noted in the neck. EXTREMITIES: No edema or cyanosis. No clubbing. MUSCULOSKELETAL: No acute joint deformities or swelling SKIN: There are no significant rashes or ecchymosis NEUROPSYCHIATRIC: The patient is alert and oriented x3. Appears to be drowsy. Apparently she did not sleep well last night. She also has sleep apnea Data 10/14/22 04:33 10/14/22 04:33 Other Labs: Laboratory Last Values WBC 9.3 10^3/uL (4.0-10.0) 10/14/22 04:33 RBC 4.45 10^6/uL (4.1-5.3) 10/14/22 04:33 Hgb 13.6 g/dL (11.5-15.3) 10/14/22 04:33 Hct 43.8 % (37.0-47.0) 10/14/22 04:33 MCV 98.4 fl (81-99) 10/14/22 04:33 MCH 30.6 pg (28.0-34.0) 10/14/22 04:33 MCHC 31.1 g/dL (30.0-36.0) 10/14/22 04:33 RDW 15.6 % (12.1-15.1) H 10/14/22 04:33 Plt Count 229 10^3/cmm (130-400) 10/14/22 04:33 MPV 10.4 fL (7.4-10.4) 10/14/22 04:33 Neut % (Auto) 77.0 % 10/14/22 04:33 Lymph % (Auto) 12.4 % 10/14/22 04:33 [place] % (Auto) 7.6 % 10/14/22 04:33 Eos % (Auto) 1.5 % 10/14/22 04:33 Baso % (Auto) 0.4 % 10/14/22 04:33 Neut # (Auto) 7.19 10^3/uL (1.8-7.7) 10/14/22 04:33 Lymph # (Auto) 1.2 10^3/uL (0.8-4.8) 10/14/22 04:33 [place] # (Auto) 0.7 10^3/uL (0.2-0.9) 10/14/22 04:33 Eos # (Auto) 0.1 10^3/uL (0.0-0.8) 10/14/22 04:33 Baso # (Auto) 0.0 10^3/uL (0.0-0.1) 10/14/22 04:33 Nucleated RBC % (auto) 0 % 10/14/22 04:33 Nucleated RBCs # 0.0 /100WBC 10/14/22 04:33 Specimen Type Arterial 10/12/22 19:20 Sample Site Radial, right 10/12/22 19:20 ABG pH 7.32 (7.35-7.45) L 10/12/22 19:20 ABG pCO2 71.6 mmHg (35-45) H* 10/12/22 19:20 ABG pO2 44.3 mmHg (80.0-100.0) L 10/12/22 19:20 ABG HCO3 36.7 mmol/L (22-26) H 10/12/22 19:20 ABG Base Excess 7.9 mmol/L (-2.0-2.0) H 10/12/22 19:20 Eddie Test Pos 10/12/22 19:20 Hematocrit 40.0 % (37-47) 10/12/22 19:20 O2 Delivery Device Nc 10/12/22 19:20 O2 Liters/Min 3.0 % 10/12/22 19:20 FiO2 32.0 % 10/12/22 19:20 Cleaning Manager ID Droch 10/12/22 19:20 Sodium 145 mmol/L (136-145) 10/14/22 04:33 Potassium 4.1 mmol/L (3.5-5.1) 10/14/22 04:33 Chloride 102 mmol/L (98-107) 10/14/22 04:33 Carbon Dioxide 32 mmol/L (22-29) H 10/14/22 04:33 Anion Gap 15.1 (5-19) 10/14/22 04:33 BUN 18 mg/dL (8-23) 10/14/22 04:33 Creatinine 1.0 mg/dL (0.5-0.9) H 10/14/22 04:33 GFR Calculation 55.8 mL/min (90-130) L 10/14/22 04:33 Glucose 116 mg/dL (65-115) H 10/14/22 04:33 Calculated Osmolality 303 mOsm/kg (285-295) H 10/14/22 04:33 Calcium 9.8 mg/dL (8.5-10.5) 10/14/22 04:33 Magnesium 2.0 mg/dL (1.7-2.3) 10/14/22 04:33 Total Bilirubin 0.5 mg/dL (0.15-1.2) 10/14/22 04:33 AST 21 U/L (0-32) 10/14/22 04:33 ALT 22 U/L (0-33) 10/14/22 04:33 Alkaline Phosphatase 105 U/L (35-105) 10/14/22 04:33 Troponin T Baseline 19 ng/L (0-10) H 10/13/22 14:01 Troponin T 120 Minute 18.72 ng/L (0-10) H 10/13/22 16:02 Delta Troponin T -0.28 ABS# (0-10) L 10/13/22 16:02 Troponin T Hi Sens 6Hr 14.65 ng/L (0-10) H 10/13/22 21:00 Troponin T Hi Sens 6Hr Delta -4.35 ng/L (0-12) L 10/13/22 21:00 NT-Pro-B Natriuret Pep 1000 pg/mL (0-125) H 10/12/22 18:25 Total Protein 7.3 g/dL (6.6-8.7) 10/14/22 04:33 Albumin 4.0 g/dL (3.5-5.2) 10/14/22 04:33 Globulin 3.3 g/dL (1.3-4.6) 10/14/22 04:33 Procalcitonin 0.06 ng/mL (0-0.5) 10/12/22 18:25 TSH 1.07 uIU/mL (0.27-4.20) 10/12/22 18:25 TSH Cancelled 10/12/22 18:25 A&P Assessment and plan (1) Atrial fibrillation with RVR: Patient apparently has been having episodes of bradycardia tachyarrhythmia. Betapace was held yesterday evening. Was given 40 mg of Betapace today. We will be closely monitoring the telemetry. (2) Atherosclerotic heart disease of [place] coronary artery without angina pectoris: In view of the patient's recurrent episodes of chest pain, we may go ahead and do a cardiac catheterization to further evaluate the coronary status and decide on further management. Eliquis was held. We will start Lovenox tonight. Consider cardiac catheterization tomorrow evening (3) Dyslipidemia: May continue on the current medications. (4) Accelerated hypertension: The blood pressure is under control. We will continue on the current medications. (5) Diastolic heart failure: Careful IV diuresis to be continued. Plan Betapace 40 mg today and twice daily. The patient continues to have tachy or bina arrhythmias, she requires a permanent pacemaker plantation for further management. We may consider this after the cardiac catheterization. Will be closely monitoring on telemetry. Attestations Medical Necessity Statement*: Patient requires continued hospital stay for close monitoring and further management Coding Level of Care Code Acute Vice Provost for Chg Fwd History Expanded Problem Focused Exam Expanded Problem Focused Medical Decision Making Moderate Complexity Diagnoses Atrial fibrillation with RVR I48.91 Atherosclerotic heart disease of [place] coronary artery without angina pectoris I25.10 Dyslipidemia E78.5 Accelerated hypertension I10 Diastolic heart failure I50.30
--- NOTE | 2022-10-15 18:58 | PM.PN ---
Subjective Subjective: Overnight patient had a drop in her heart rate down to 28-35 intermittently. She did complain of chest pain additionally this morning. Plan is to go to cardiac cath tomorrow for further evaluation of her ongoing chest pain. Sotalol was discontinued after yesterday morning's dose. Cardiac cath could not be performed today as patient had received apixaban. Medications: Reviewed: Yes Medication Review Details: Current Medications Acetaminophen (Acetaminophen 325 Mg Tablet) 650 mg PO Q6H PRN PRN Reason: Mild/Mod Pain Or Temp >/= 101 Last Admin: 10/14/22 06:55 Dose: 650 mg Hydrocodone Bitart/Acetaminophen (Hydrocodone-Acetaminophen 5-325 Mg Tablet) 1 tab PO TID [facility] Last Admin: 10/15/22 09:23 Dose: 1 tab Albuterol Sulfate (Albuterol 2.5 Mg/3 Ml Neb) 2.5 mg INHALATION Q4H.RESPIRATORY PRN PRN Reason: SHORTNESS OF BREATH Last Admin: 10/14/22 11:41 Dose: 2.5 mg Apixaban (Apixaban 5 Mg Tablet) 5 mg PO BID [facility] Last Admin: 10/15/22 09:23 Dose: 5 mg Aripiprazole (Aripiprazole 10 Mg Tablet) 15 mg PO DAILY [facility] Last Admin: 10/15/22 09:23 Dose: 15 mg Atorvastatin Calcium (Atorvastatin 40 Mg Tablet) 80 mg PO DAILY [facility] Last Admin: 10/15/22 09:23 Dose: 80 mg Cetirizine HCl (Cetirizine 10 Mg Tablet) 10 mg PO DAILY [facility] Last Admin: 10/15/22 09:23 Dose: 10 mg Fenofibrate (Fenofibrate 145 Mg Tablet) 145 mg PO DAILY [facility] Last Admin: 10/15/22 09:24 Dose: 145 mg Furosemide (Furosemide 10 Mg/Ml Sdv 4ml) 40 mg IVP Q12H [facility] Last Admin: 10/14/22 20:23 Dose: 40 mg Hydromorphone HCl (Hydromorphone 1 Mg/Ml Inj 1 Ml) 1 mg IVP Q6H PRN PRN Reason: PAIN Last Admin: 10/15/22 09:24 Dose: 1 mg Sodium Chloride (Sodium Chloride 0.9%) 1,000 mls @ 50 mls/hr IV .Q20H ONE Stop: 10/16/22 05:54 Isosorbide Mononitrate (Isosorbide Mononitrate Er 60 Mg Tablet) 90 mg PO DAILY [facility] Last Admin: 10/15/22 09:23 Dose: 90 mg Metoprolol Tartrate (Metoprolol Tartrate 50 Mg Tablet) 50 mg PO BID@0900,2100 [facility] Last Admin: 10/13/22 11:21 Dose: 50 mg Nitroglycerin (Nitroglycerin 0.4 Mg Sublingual Tablet) 0.4 mg SUBLINGUAL Q5M PRN PRN Reason: CHEST PAIN Last Admin: 10/15/22 08:53 Dose: 0.4 mg Nitroglycerin (Nitroglycerin 1 Gm/Inch Oint Pkt) 0.5 inch TOPICAL Q6H [facility] Last Admin: 10/15/22 08:41 Dose: 0.5 inch Non-Formulary Medication (Hdjioxnopw-Apcgsnjw-Angpzr Ala [Odefsey]) 1 tab PO 1700 [facility] Last Admin: 10/14/22 18:03 Dose: Not Given Ondansetron HCl (Ondansetron 2 Mg/Ml Sdv 2 Ml) 4 mg IVP Q8H PRN PRN Reason: vomiting, or N/V if npo Sertraline HCl (Sertraline 100 Mg Tablet) 100 mg PO DAILY [facility] Last Admin: 10/15/22 09:23 Dose: 100 mg Sotalol HCl (Sotalol 80 Mg Tablet) 80 mg PO BID@0900,2100 [facility] Stop: 10/20/22 23:59 Last Admin: 10/14/22 09:32 Dose: 80 mg Ticagrelor (Ticagrelor 90 Mg Tablet) 90 mg PO BID [facility] Last Admin: 10/15/22 09:23 Dose: 90 mg Vitals/I&O/Wt Last Vital Signs Temp 98.2 F 10/15/22 15:04 Pulse 56 L 10/15/22 15:04 Resp 14 10/15/22 15:04 BP 104/56 10/15/22 15:04 Pulse Ox 92 10/15/22 15:04 O2 Del Method 10/15/22 15:04 O2 Flow Rate 3 10/15/22 15:04 FiO2 36 10/15/22 16:00 10/15/22 10/15/22 10/15/22 06:59 14:59 22:59 Intake Total 120 / 720 600 / 600 200 / 800 Balance 120 / 470 600 / 600 200 / 800 Physical Exam Narrative: General: No acute distress, AO x3 HEENT: PERRLA, pupils bilaterally equal and reactive, pallors not present Chest: Normal vesicular breath sounds, no added sounds, equal good air entry bilaterally CVS: S1-S2 regular, no murmurs, no tachycardia, no gallops, no rubs Abdomen: Soft, nontender, no organomegaly, bowel sounds present Neuro: No focal deficits, no facial deformity, AO x3, power 5/5 in all limbs Data 10/14/22 04:33 10/14/22 04:33 A&P Assessment and plan (1) Atherosclerotic heart disease of [place] coronary artery with other forms of angina pectoris: (2) SOB (shortness of breath): (3) Dyslipidemia: (4) Benign essential HTN: (5) Atrial fibrillation with RVR: (6) Diastolic heart failure: Plan #Shortness of breath, increased lower extremity edema #Acute on chronic congestive diastolic heart failure Continue diuresis with Lasix 40 mg IV every 12 hours Net negative by 2 L. Good urine output, kidney function stable with creatinine at 1.0. #Atrial fibrillation with RVR Currently heart rate is ranging between 70-80 for the most part, however did have dips down to 20 to 30 bpm overnight. For this reason sotalol is currently on hold. Patient is not currently on any rate limiting medications. #Ongoing chest pain. In the setting of recently abnormal stress test as outpatient. Plan for cardiac cath tomorrow. This could not be completed today as patient had taken Eliquis. We will hold any further doses of Eliquis for now. We will give Lovenox 1 mg/kg subcutaneous one-time dose this evening and proceed with cardiac cath tomorrow. 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
[2022-10-15] MEDS: enoxaparin 100 mg/mL Syringe SUBCUT (19:48)
[2022-10-16] VITALS (28 sets, daily range): BP systolic 108–184; BP diastolic 59–104; PULSE 46–141; RESP 12–22; TEMP 36.4–36.8; O2SAT 90–96
[2022-10-16] MEDS: nitroglycerin 1 gm/inch oint Pkt 0.5 INCH TOPICAL ×4 (04:30→23:01)
[2022-10-16 05:22] LABS: Basophils % 0.2 %; Eosinophils # 0.1 10^3/uL (0.0-0.8); Eosinophils % 1.3 %; Hematocrit 43.3 % (37.0-47.0); Hemoglobin 13.7 g/dL (11.5-15.3); Lymphocytes # 1.4 10^3/uL (0.8-4.8); Lymphocytes % 15.6 %; Mean Corpuscular HGB Conc 31.6 g/dL (30.0-36.0); Mean Platelet Volume 10.1 fL (7.4-10.4); Monocytes # 0.8 10^3/uL (0.2-0.9); Monocytes % 8.9 %; Neutrophils # 6.56 10^3/uL (1.8-7.7); Neutrophils % 73.1 %; Nucleated Red Blood Cells % 0 %; Platelet Count 233 10^3/cmm (130-400); Red Blood Count 4.42 10^6/uL (4.1-5.3); Red Cell Distribution Width 15.5 % (12.1-15.1)
[2022-10-16 05:50] LABS: Alanine Aminotransferase 16 U/L (0-33); Alkaline Phosphatase 82 U/L (35-105); Anion Gap 14.2 (5-19); Aspartate Amino Transferase 13 U/L (0-32); Blood Urea Nitrogen 40 mg/dL (8-23); Calcium 9.3 mg/dL (8.5-10.5); Carbon Dioxide 31 mmol/L (22-29); Chloride 101 mmol/L (98-107); Globulin 3.1 g/dL (1.3-4.6); Glomerular Filtration Rate 45.2 mL/min (90-130); Glucose 141 mg/dL (65-115); Osmolality Calculated 306 mOsm/kg (285-295); Potassium 4.2 mmol/L (3.5-5.1); Sodium 142 mmol/L (136-145); Total Bilirubin 0.4 mg/dL (0.15-1.2); Total Protein 7.1 g/dL (6.6-8.7)
[2022-10-16 05:51] LABS: Creatinine Clr Calc Pharmacy 55.7402
--- NOTE | 2022-10-16 06:00 | XACV_ITS ---
Exam Room: [facility] Ht: 163 cm Wt: 104 kg BSA: 2.22 m2 Gender: Female : 1955 Any Known Allergies: No known allergies Exam Priority: Routine Procedure(s): Procedure Description: Diagnostic procedure Procedure Description: PCI procedure Procedure Description: Left Heart Catheterization Procedure Description: Drug Eluting Coronary Stent Procedure Description: Coronary Angiography Diagnostic Cath Status: Elective Diagnostic Findings * The left main is a medium to large caliber short vessel with no significant stenotic lesions. * The left hand descending artery is a medium caliber vessel which appears to wrap around the LV apex minimally. The proximal to mid stented segment was found to be widely patent. The first diagonal branch was found to have mild diffuse disease proximally. The second diagonal branch was found to have a jailed lesion of around 80%. He is a relatively small caliber vessel.. * The left circumflex artery is a medium to large caliber dominant vessel. The artery was found to have mild diffuse disease proximally. Then it appears to trifurcates to give off 3 obtuse marginal branches. One of the obtuse marginal branch was found to have around 70 proximal tubular narrowing. The other obtuse marginal branches are found to have minimal intimal irregularities. The artery appears to give the PDA branch. * The right coronary artery is a small caliber nondominant vessel. It was found to have around 50% narrowing in the proximal segment. Minimal intimal irregularities were noted on the distal vessels. No significant stenotic lesions. PCI Status: Elective PCI LVEF Assessed: No PCI Indication: NSTE - ACS Interventional Findings * Proximal second obtuse marginal branch was primarily stented without incident. 3.5 x 15 mm drug-eluting stent. Decision for PCI with Surgical Consult: No PCI for Multi-vessel Disease: No Conclusions 1. This 66-year-old white female with history of hypertension, dyslipidemia, type 2 diabetes and atherosclerotic heart disease, presenting with complaints of chest pain and palpitation. She was found in atrial fibrillation with rapid ventricular rate. She was having episodes of chest pain even with normal sinus rhythm. She had a recent Myocardial perfusion imaging which revealed areas of fixed and reversible defects. The ischemic areas were found to be relatively small and in the distribution of the left circumflex artery. Initially it was decided to treat her medically. But because of the increasing episodes of chest pain, in order to further evaluate her coronary status, a cardiac catheterization was recommended. Patient underwent left heart catheterization with left and right coronary angiogram today. LV gram was not performed because of the renal insufficiency. The findings are as follows. 2. Short left main with no significant lesions. Patent stented segment of the proximal to mid LAD. Second diagonal vessel was found to be jailed. Around 70% tubular lesion in one of the obtuse marginal branches. Nondominant right coronary artery. Mild diffuse disease the other vessels. Elevated LVEDP of 27 mmHg.. 3. I reviewed and discussed the cardiac catheterization data with the Dr. Bey. In view of the patient's ongoing symptoms, it was thought to be appropriate to consider PCI of the circumflex artery lesion. Dr. Bey took cover further management of this patient at this point. Diagnostic RX Recommendation: PCI w/o planned CABG LV EDP: 27 mmHg Left Ventriculography Findings: * The LV gram was not performed because of the renal insufficiency. Pressures Phase:Rest AO : 136 / 78 ( 101 ) @ 1:49:34 PM 148 / 75 ( 97 ) @ 1:49:34 PM 127 / 91 ( 108 ) @ 1:49:34 PM 146 / 96 ( 122 ) @ 1:49:34 PM 182 / 107 ( 146 ) @ 1:49:34 PM 158 / 89 ( 118 ) @ 1:49:34 PM 160 / 109 ( 129 ) @ 1:49:34 PM 124 / 95 ( 109 ) @ 1:49:34 PM LV : 164 / 9 / 27 @ 1:49:34 PM 162 / 9 / 27 @ 1:49:34 PM Valves Phase:DefaultPhase AV : 27.0 @ 7:49:34 PM AV Mean Gradient: 22.0 @ 7:49:34 PM 22.0 @ 7:49:34 PM Clinical Evaluation EBL: 5mL-10mL Procedural Details Pre-Procedure Time Out. Identified patient by full name and date of as verbalized by the patient/guarantor. Does the consent match the physician's order: Yes. Accurate & Complete Informed Consent: Yes. Inpatient/Outpatient History & Physical on Chart: Yes. If H&P is completed, is and addenduem needed: No; If yes, is the addendum complete: N/A. Visualize and Verify Site with Patient/Guarantor: N/A. Relevant Radiology Images available: Yes. Pre-op teaching completed and patient verbalized understanding. The risks, benefits, and alternatives of sedation and/or procedure were discussed by physician. The patient agrees to continue. Procedure started. Current Diagnosis : NSTEMI. [facility] Clinical Fraility Score: 3: Managing Well. Creative Arts Therapist Indications: Suspected CAD. Chest Pain Symptom Assessment: Atypical Angina. Correct patient, site and procedure confirmed by cath team. Current diagnosis: NSTEMI. PERRLA. Strong, equal hand manager validation bilaterally. Lungs clear x 5 lobes. IV Site on Arrival: 20 gauge in the left forearm. IV Fluids: 0.9% NaCl at KVO. 600 mL infused prior to cardiac cath rn. Oxygen started at 2liters/min via nasal canula. right groin was prepped with chloroprep then draped in the usual sterile fashion. right radial was prepped with chloroprep then draped in the usual sterile fashion. Baseline sample Acquired. HR: 51 BPM. Physician arrived. Physician scrubbed in. Immediate Pre-Procedure Time Out. Correct Patient: Yes; Correct Procedure: Yes; Correct Site: Yes; Correct Patient Position: Yes; Correct Supplies: Yes; Dried Flammable Prep: Yes; Blood Products Available: N/A;. Lidocaine 1% infiltrated to the right radial. Arterial access obtained. A 5 micronesian TIG catheter in over wire. Wire out. Contrast hand injected through the catheter. Inventory is TR Glidewire Angled Stiff Shaft .035 260cm. Glidewire inserted through the catheter. EDP Sample taken: LV 164/9,27; HR: 74 BPM; SpO2: 99%. Pullback taken: LV 162/9,27; AO 136/78(101); Mean: 22mmHg, Peak to Peak: 27mmHg, SEP: 18sec/min; HR: 67 BPM; SpO2: 97%. Multiple views taken of left coronary artery. Dr. Bey called to review films. Catheter removed over the exchange wire. A 5 micronesian JR4 catheter in over wire. Multiple views taken of right coronary artery. Catheter attached to Normal Saline flush at KVO to maintain patency. Physician scrubbed out. Physician review of cine films. Dr. Bey arrived. Dr. Bey scrubbed in. Catheter removed over the exchange wire. 6 micronesian XB 3.5 guide catheter was inserted over the wire. CLIPPATE guidewire was advanced through the guide catheter to lesion in the OM. Inflation Number : 1 Bonnie Ngo MEAGHAN 3.5X15 KAILYN -Lot Number# [id number] EXP: 02/06/2025 was prepped and advanced across the 2nd Ob Pamela. The stent was deployed at 12 EDI for 0:22 seconds. Results checked. Inflation number: 2 The stent balloon was then re-inflated across the 2nd Ob Pamela to 6 EDI for 0:14 seconds. Stent balloon out over wire. Wire out. Guide catheter out. Physician scrubbed out. A TR Band was successful obtaining hemostatsis at the Right Radial artery insertion site. Post Procedure: Pulses reassessed and unchanged. No VTE prophylaxis required. Total IV fluids: 100 mL. Medication's Wasted: Nitro = 49.8 mg. Medication's Wasted: Lidocaine 1% = 2 mL. Complications: None. Estimated blood loss: 5mL-10mL. Responsiveness - Normal response to verbal stimuli; alert and oriented, PERRLA. Airway - Unaffected, no intervention required; spontaneous ventilation. Circulation: W/N/L, pulses unchanged. Nausea/Vomiting: No. Procedure completed. Patient transferred by wheelchair to 1st floor. Vital chart was stopped. Access Site Site: Right Radial artery Sheath Size: 6 Fr Hemostasis Method: TR Band Hemostasis Success: Successful Procedure Medications Start: 6:42 PM Stop: 6:42 PM Medication: Versed 1 mg and Fentanyl 25 mcg Amount: 1 Route: I.V. Start: 6:47 PM Stop: 6:47 PM Medication: Versed Amount: 1 mg Route: I.V. Start: 6:49 PM Stop: 6:49 PM Medication: Nitrogylcerin Amount: 200 mcg Route: I.A. Start: 6:57 PM Stop: 6:57 PM Medication: Heparin Amount: 5000 units Route: I.V. Start: 7:23 PM Stop: 7:23 PM Medication: Fentanyl Amount: 50 mcg Route: I.V. Start: 7:31 PM Stop: 7:31 PM Medication: Fentanyl Amount: 25 mcg Route: I.V. I, the attending physician, have reviewed and verified all procedure medications. Yes, all medications given per verbal order History/Risk Factors Hypertension: Yes Dyslipidemia: Yes Peripheral Arterial Disease (PAD): No Obesity: No Renal Disease: No Prior Interventions PCI: No CABG: No Valve Surgery: No Report Signatures Diagnostic Workflow Finalized by Dr Alberta Archer MD [facility] on 10/17/2022 10:25 AM Interventional Workflow Finalized by Dr. Sina Bey MD on 10/16/2022 08:00 PM
--- NOTE | 2022-10-16 08:48 | PM.PN ---
Subjective Subjective: Patient is feeling okay. Continues to have tachy or bina arrhythmias on the monitor. He seems to be in sinus rhythm with a rate of 70/min. Still is complaining of chest tightness and heaviness intermittently. Medications: Medication Review Details: Current Medications Acetaminophen (Acetaminophen 325 Mg Tablet) 650 mg PO Q6H PRN PRN Reason: Mild/Mod Pain Or Temp >/= 101 Last Admin: 10/14/22 06:55 Dose: 650 mg Hydrocodone Bitart/Acetaminophen (Hydrocodone-Acetaminophen 5-325 Mg Tablet) 1 tab PO TID [facility] TO [facility] Last Admin: 10/15/22 19:49 Dose: 1 tab Albuterol Sulfate (Albuterol 2.5 Mg/3 Ml Neb) 2.5 mg INHALATION Q4H.RESPIRATORY PRN PRN Reason: SHORTNESS OF BREATH Last Admin: 10/14/22 11:41 Dose: 2.5 mg Apixaban (Apixaban 5 Mg Tablet) 5 mg PO BID [facility] Last Admin: 10/15/22 09:23 Dose: 5 mg Aripiprazole (Aripiprazole 10 Mg Tablet) 15 mg PO DAILY [facility] Last Admin: 10/15/22 09:23 Dose: 15 mg Atorvastatin Calcium (Atorvastatin 40 Mg Tablet) 80 mg PO DAILY [facility] Last Admin: 10/15/22 09:23 Dose: 80 mg Cetirizine HCl (Cetirizine 10 Mg Tablet) 10 mg PO DAILY [facility] Last Admin: 10/15/22 09:23 Dose: 10 mg Fenofibrate (Fenofibrate 145 Mg Tablet) 145 mg PO DAILY [facility] Last Admin: 10/15/22 09:24 Dose: 145 mg Furosemide (Furosemide 10 Mg/Ml Sdv 4ml) 40 mg IVP Q12H [facility] Last Admin: 10/15/22 19:51 Dose: Not Given Hydromorphone HCl (Hydromorphone 1 Mg/Ml Inj 1 Ml) 1 mg IVP Q6H PRN PRN Reason: PAIN Last Admin: 10/15/22 09:24 Dose: 1 mg Isosorbide Mononitrate (Isosorbide Mononitrate Er 60 Mg Tablet) 90 mg PO DAILY [facility] Last Admin: 10/15/22 09:23 Dose: 90 mg Lanolin (Lanolin Oint 7 Gm) 1 applic TOPICAL PRN PRN PRN Reason: DRYNESS Metoprolol Tartrate (Metoprolol Tartrate 50 Mg Tablet) 50 mg PO BID@0900,2100 [facility] Last Admin: 10/13/22 11:21 Dose: 50 mg Nitroglycerin (Nitroglycerin 0.4 Mg Sublingual Tablet) 0.4 mg SUBLINGUAL Q5M PRN PRN Reason: CHEST PAIN Last Admin: 10/15/22 08:53 Dose: 0.4 mg Nitroglycerin (Nitroglycerin 1 Gm/Inch Oint Pkt) 0.5 inch TOPICAL Q6H [facility] Last Admin: 10/16/22 04:30 Dose: 0.5 inch Non-Formulary Medication (Onknqorjcg-Bmnqkray-Cbduwq Ala [Odefsey]) 1 tab PO 1700 [facility] Last Admin: 10/14/22 18:03 Dose: Not Given Ondansetron HCl (Ondansetron 2 Mg/Ml Sdv 2 Ml) 4 mg IVP Q8H PRN PRN Reason: vomiting, or N/V if npo Sertraline HCl (Sertraline 100 Mg Tablet) 100 mg PO DAILY [facility] Last Admin: 10/15/22 09:23 Dose: 100 mg Sotalol HCl (Sotalol 80 Mg Tablet) 80 mg PO BID@0900,2100 [facility] Stop: 10/20/22 23:59 Last Admin: 10/14/22 09:32 Dose: 80 mg Ticagrelor (Ticagrelor 90 Mg Tablet) 90 mg PO BID [facility] Last Admin: 10/15/22 18:22 Dose: 90 mg Vitals/I&O/Wt Last Vital Signs Temp 98.3 F 10/16/22 07:55 Pulse 84 10/16/22 08:39 Resp 17 10/16/22 08:39 BP 134/104 10/16/22 08:39 Pulse Ox 92 10/16/22 07:32 O2 Del Method 10/16/22 07:32 O2 Flow Rate 3 10/16/22 07:32 FiO2 36 10/15/22 20:00 10/15/22 10/16/22 10/16/22 22:59 06:59 14:59 Intake Total 320 / 920 Balance 320 / 920 Physical Exam Narrative: GENERAL: The patient is alert and oriented times three. Not in any acute distress. Obese HEENT: No significant pallor, icterus or lymphadenopathy.Oral cavity: There are no mucous membrane lesions. NECK: Trachea appears to be central. No masses noted. No JVD or thyromegaly appreciated. RESPIRATORY: Chest is symmetrical. No intercostals muscle retraction or any accessory muscle activation. There is no chest wall tenderness. Breath sounds are heard bilaterally. No rales or rhonchi heard. No evidence of any consolidation. BREASTS: Deferred. HEART: The heart sounds are normal. No S3 or S4. No significant murmurs. No pericardial rub ABDOMEN: No vessel pulsations or distention. No tenderness. No organomegaly appreciated. Bowel sounds are normally heard. : Deferred. RECTAL: Deferred. LYMPHATIC: No lymphadenopathy noted in the neck. EXTREMITIES: No edema or cyanosis. No clubbing. MUSCULOSKELETAL: No acute joint deformities or swelling SKIN: There are no significant rashes or ecchymosis NEUROPSYCHIATRIC: The patient is alert and oriented x3. Appears to be drowsy. Apparently she did not sleep well last night. She also has sleep apnea Data 10/16/22 04:51 10/16/22 04:51 Other Labs: Laboratory Last Values WBC 9.0 10^3/uL (4.0-10.0) 10/16/22 04:51 RBC 4.42 10^6/uL (4.1-5.3) 10/16/22 04:51 Hgb 13.7 g/dL (11.5-15.3) 10/16/22 04:51 Hct 43.3 % (37.0-47.0) 10/16/22 04:51 MCV 98.0 fl (81-99) 10/16/22 04:51 MCH 31.0 pg (28.0-34.0) 10/16/22 04:51 MCHC 31.6 g/dL (30.0-36.0) 10/16/22 04:51 RDW 15.5 % (12.1-15.1) H 10/16/22 04:51 Plt Count 233 10^3/cmm (130-400) 10/16/22 04:51 MPV 10.1 fL (7.4-10.4) 10/16/22 04:51 Neut % (Auto) 73.1 % 10/16/22 04:51 Lymph % (Auto) 15.6 % 10/16/22 04:51 Holmes % (Auto) 8.9 % 10/16/22 04:51 Eos % (Auto) 1.3 % 10/16/22 04:51 Baso % (Auto) 0.2 % 10/16/22 04:51 Neut # (Auto) 6.56 10^3/uL (1.8-7.7) 10/16/22 04:51 Lymph # (Auto) 1.4 10^3/uL (0.8-4.8) 10/16/22 04:51 Holmes # (Auto) 0.8 10^3/uL (0.2-0.9) 10/16/22 04:51 Eos # (Auto) 0.1 10^3/uL (0.0-0.8) 10/16/22 04:51 Baso # (Auto) 0.0 10^3/uL (0.0-0.1) 10/16/22 04:51 Nucleated RBC % (auto) 0 % 10/16/22 04:51 Nucleated RBCs # 0.0 /100WBC 10/16/22 04:51 Specimen Type Arterial 10/12/22 19:20 Sample Site Radial, right 10/12/22 19:20 ABG pH 7.32 (7.35-7.45) L 10/12/22 19:20 ABG pCO2 71.6 mmHg (35-45) H* 10/12/22 19:20 ABG pO2 44.3 mmHg (80.0-100.0) L 10/12/22 19:20 ABG HCO3 36.7 mmol/L (22-26) H 10/12/22 19:20 ABG Base Excess 7.9 mmol/L (-2.0-2.0) H 10/12/22 19:20 Eddie Test Pos 10/12/22 19:20 Hematocrit 40.0 % (37-47) 10/12/22 19:20 O2 Delivery Device Nc 10/12/22 19:20 O2 Liters/Min 3.0 % 10/12/22 19:20 FiO2 32.0 % 10/12/22 19:20 Spring Upholsterer ID Droch 10/12/22 19:20 Sodium 142 mmol/L (136-145) 10/16/22 04:51 Potassium 4.2 mmol/L (3.5-5.1) 10/16/22 04:51 Chloride 101 mmol/L (98-107) 10/16/22 04:51 Carbon Dioxide 31 mmol/L (22-29) H 10/16/22 04:51 Anion Gap 14.2 (5-19) 10/16/22 04:51 BUN 40 mg/dL (8-23) H 10/16/22 04:51 Creatinine 1.2 mg/dL (0.5-0.9) H 10/16/22 04:51 GFR Calculation 45.2 mL/min (90-130) L 10/16/22 04:51 Glucose 141 mg/dL (65-115) H 10/16/22 04:51 Calculated Osmolality 306 mOsm/kg (285-295) H 10/16/22 04:51 Calcium 9.3 mg/dL (8.5-10.5) 10/16/22 04:51 Magnesium 2.0 mg/dL (1.7-2.3) 10/14/22 04:33 Total Bilirubin 0.4 mg/dL (0.15-1.2) 10/16/22 04:51 AST 13 U/L (0-32) 10/16/22 04:51 ALT 16 U/L (0-33) 10/16/22 04:51 Alkaline Phosphatase 82 U/L (35-105) 10/16/22 04:51 Troponin T Baseline 19 ng/L (0-10) H 10/13/22 14:01 Troponin T 120 Minute 18.72 ng/L (0-10) H 10/13/22 16:02 Delta Troponin T -0.28 ABS# (0-10) L 10/13/22 16:02 Troponin T Hi Sens 6Hr 14.65 ng/L (0-10) H 10/13/22 21:00 Troponin T Hi Sens 6Hr Delta -4.35 ng/L (0-12) L 10/13/22 21:00 NT-Pro-B Natriuret Pep 1000 pg/mL (0-125) H 10/12/22 18:25 Total Protein 7.1 g/dL (6.6-8.7) 10/16/22 04:51 Albumin 4.0 g/dL (3.5-5.2) 10/16/22 04:51 Globulin 3.1 g/dL (1.3-4.6) 10/16/22 04:51 Procalcitonin 0.06 ng/mL (0-0.5) 10/12/22 18:25 TSH 1.07 uIU/mL (0.27-4.20) 10/12/22 18:25 TSH Cancelled 10/12/22 18:25 A&P Assessment and plan (1) Atrial fibrillation with RVR: ContinuesPatient is currently remaining in sinus rhythm. Continues to have tachy or bina arrhythmias. Patient may benefit from a permanent pacemaker [place] for further management. Will be decided after the cardiac catheterization. (2) Atherosclerotic heart disease of [place] coronary artery without angina pectoris: In view of the patient's recurrent episodes of chest pain, we may go ahead and do a cardiac catheterization to further evaluate the coronary status and decide on further management. Eliquis was held. Possible cardiac catheterization this evening (3) Dyslipidemia: May continue on the current medications. (4) Accelerated hypertension: Pressure seems to be getting under control. (5) Diastolic heart failure: Patient is somewhat over diuresed. The BUN/creatinine was going up. Was started on IV fluid this morning. The BUN and creatinine are coming down. Plan After the angiogram, if she has no significant obstructive disease, will consider about permanent pacemaker. St Raf further cardiac catheterization was explained to the patient in detail. The risk of bleeding, hematoma, vascular injury, myocardial infarction, myocardial perforation, malignant cardiac arrhythmias ,CVA, renal failure and other concomitant complications were explained in detail. In view of the renal insufficiency, she carries a high risk for contrast-induced nephropathy. This was discussed with the patient in detail which she understood well and consented to proceed. Continue careful IV hydration. Lasix is on hold. Attestations Medical Necessity Statement*: Patient requires continued hospital stay for close monitoring and further management Coding Level of Care Code Acute Code for Chg Fwd History Expanded Problem Focused Exam Expanded Problem Focused Medical Decision Making High Complexity Diagnoses Atrial fibrillation with RVR I48.91 Atherosclerotic heart disease of [place] coronary artery without angina pectoris I25.10 Dyslipidemia E78.5 Accelerated hypertension I10 Diastolic heart failure I50.30
[2022-10-16] MEDS: cetirizine 10 mg Tablet PO (09:22)
[2022-10-16] MEDS: lanolin oint 7 gm 1 APPLIC TOPICAL (09:22)
[2022-10-16] MEDS: ARIPiprazole 10 mg Tablet 15 MG PO (09:22)
[2022-10-16] MEDS: sertraline 100 mg Tablet PO (09:22)
[2022-10-16] MEDS: isosorbide mononitrate ER 60 mg Tablet 90 MG PO (09:23)
[2022-10-16] MEDS: atorvastatin 40 mg Tablet 80 MG PO (09:23)
[2022-10-16] MEDS: ticagrelor 90 mg Tablet PO ×2 (09:23→17:32)
[2022-10-16] MEDS: HYDROcodone-acetaminophen 5-325 mg Tablet 1 TAB PO ×3 (09:23→20:33)
[2022-10-16] MEDS: fenofibrate 145 mg Tablet PO (09:23)
[2022-10-16] MEDS: sodium chloride 0.9% 1,000 ML 75 ML IV (09:24)
[2022-10-16 14:39] LABS: Blood Urea Nitrogen 38 mg/dL (8-23); Calcium 9.1 mg/dL (8.5-10.5); Carbon Dioxide 29 mmol/L (22-29); Chloride 101 mmol/L (98-107); Glomerular Filtration Rate 55.8 mL/min (90-130); Glucose 179 mg/dL (65-115); Osmolality Calculated 304 mOsm/kg (285-295); Sodium 140 mmol/L (136-145)
[2022-10-16 14:40] LABS: Creatinine Clr Calc Pharmacy 66.8883
[2022-10-16 14:41] LABS: Anion Gap 14.2 (5-19); Potassium 4.2 mmol/L (3.5-5.1)
--- NOTE | 2022-10-16 15:18 | PM.PN ---
Subjective Subjective: Cath planned for this am but deferred as Bun trending up. lasix on hold and patient getting IVF this morning with plans for cath this evening or in am Medications: Reviewed: Yes Medication Review Details: Current Medications Acetaminophen (Acetaminophen 325 Mg Tablet) 650 mg PO Q6H PRN PRN Reason: Mild/Mod Pain Or Temp >/= 101 Last Admin: 10/14/22 06:55 Dose: 650 mg Hydrocodone Bitart/Acetaminophen (Hydrocodone-Acetaminophen 5-325 Mg Tablet) 1 tab PO TID [facility] Last Admin: 10/15/22 19:49 Dose: 1 tab Albuterol Sulfate (Albuterol 2.5 Mg/3 Ml Neb) 2.5 mg INHALATION Q4H.RESPIRATORY PRN PRN Reason: SHORTNESS OF BREATH Last Admin: 10/14/22 11:41 Dose: 2.5 mg Apixaban (Apixaban 5 Mg Tablet) 5 mg PO BID [facility] Last Admin: 10/15/22 09:23 Dose: 5 mg Aripiprazole (Aripiprazole 10 Mg Tablet) 15 mg PO DAILY [facility] Last Admin: 10/15/22 09:23 Dose: 15 mg Atorvastatin Calcium (Atorvastatin 40 Mg Tablet) 80 mg PO DAILY [facility] Last Admin: 10/15/22 09:23 Dose: 80 mg Cetirizine HCl (Cetirizine 10 Mg Tablet) 10 mg PO DAILY [facility] Last Admin: 10/15/22 09:23 Dose: 10 mg Fenofibrate (Fenofibrate 145 Mg Tablet) 145 mg PO DAILY [facility] Last Admin: 10/15/22 09:24 Dose: 145 mg Furosemide (Furosemide 10 Mg/Ml Sdv 4ml) 40 mg IVP Q12H [facility] Last Admin: 10/15/22 19:51 Dose: Not Given Hydromorphone HCl (Hydromorphone 1 Mg/Ml Inj 1 Ml) 1 mg IVP Q6H PRN PRN Reason: PAIN Last Admin: 10/15/22 09:24 Dose: 1 mg Isosorbide Mononitrate (Isosorbide Mononitrate Er 60 Mg Tablet) 90 mg PO DAILY [facility] Last Admin: 10/15/22 09:23 Dose: 90 mg Lanolin (Lanolin Oint 7 Gm) 1 applic TOPICAL PRN PRN PRN Reason: DRYNESS Metoprolol Tartrate (Metoprolol Tartrate 50 Mg Tablet) 50 mg PO BID@0900,2100 [facility] Last Admin: 10/13/22 11:21 Dose: 50 mg Nitroglycerin (Nitroglycerin 0.4 Mg Sublingual Tablet) 0.4 mg SUBLINGUAL Q5M PRN PRN Reason: CHEST PAIN Last Admin: 10/15/22 08:53 Dose: 0.4 mg Nitroglycerin (Nitroglycerin 1 Gm/Inch Oint Pkt) 0.5 inch TOPICAL Q6H [facility] Last Admin: 10/16/22 04:30 Dose: 0.5 inch Non-Formulary Medication (Wcgcqpbpwy-Cap[place]ta-Agpjrj Ala [Odefsey]) 1 tab PO 1700 [facility] Last Admin: 10/14/22 18:03 Dose: Not Given Ondansetron HCl (Ondansetron 2 Mg/Ml Sdv 2 Ml) 4 mg IVP Q8H PRN PRN Reason: vomiting, or N/V if npo Sertraline HCl (Sertraline 100 Mg Tablet) 100 mg PO DAILY [facility] Last Admin: 10/15/22 09:23 Dose: 100 mg Sotalol HCl (Sotalol 80 Mg Tablet) 80 mg PO BID@0900,2100 [facility] Stop: 10/20/22 23:59 Last Admin: 10/14/22 09:32 Dose: 80 mg Ticagrelor (Ticagrelor 90 Mg Tablet) 90 mg PO BID [facility] Last Admin: 10/15/22 18:22 Dose: 90 mg Vitals/I&O/Wt Last Vital Signs Temp 97.6 F 10/16/22 11:29 Pulse 68 10/16/22 11:29 Resp 22 H 10/16/22 11:29 BP 114/68 10/16/22 12:00 Pulse Ox 96 10/16/22 11:29 O2 Del Method 10/16/22 09:25 O2 Flow Rate 3 10/16/22 09:25 FiO2 36 10/15/22 20:00 10/16/22 10/16/22 10/16/22 06:59 14:59 22:59 Intake Total 840 / 840 Balance 840 / 840 Physical Exam Narrative: General: No acute distress, AO x3 HEENT: PERRLA, pupils bilaterally equal and reactive, pallors not present Chest: Normal vesicular breath sounds, no added sounds, equal good air entry bilaterally CVS: S1-S2 regular, no murmurs, no tachycardia, no gallops, no rubs Abdomen: Soft, nontender, no organomegaly, bowel sounds present Neuro: No focal deficits, no facial deformity, AO x3, power 5/5 in all limbs Data 10/16/22 04:51 10/16/22 14:05 A&P Assessment and plan (1) Atherosclerotic heart disease of [place] coronary artery with other forms of angina pectoris: (2) SOB (shortness of breath): (3) Dyslipidemia: (4) Benign essential HTN: (5) Atrial fibrillation with RVR: (6) Diastolic heart failure: Plan #Shortness of breath, increased lower extremity edema #Acute on chronic congestive diastolic heart failure diuresis with Lasix 40 mg IV every 12 hours on hold today due to BUN uptrend Plan for cardiac cath later this evening or tomorrow #Atrial fibrillation with RVR Currently heart rate is ranging between 70-80 for the most part, however did have dips down to 20 to 30 bpm overnight. For this reason sotalol is currently on hold. Patient is not currently on any rate limiting medications. Cardiology to decide regarding PPM prior to discharge #Ongoing chest pain. In the setting of recently abnormal stress test as outpatient. Plan for cardiac cath today. This could not be completed today as patient had taken Eliquis. We will hold any further doses of Eliquis for now for procedure #COPD, not currently excaerbated #Hypertension: Blood pressure currently controlled Attestations Medical Necessity Statement*: cardiac cath planned Coding Level of Care Code Acute Code for [facility] Diagnoses Atherosclerotic heart disease of [place] coronary artery with other forms of angina pectoris I25.118 SOB (shortness of breath) R06.02 Dyslipidemia E78.5 Benign essential HTN I10 Atrial fibrillation with RVR I48.91 Diastolic heart failure I50.30
--- NOTE | 2022-10-16 18:00 | PC.NURSE ---
off unit to metallurgical lab technician
--- NOTE | 2022-10-16 18:37 | W.PM.OPSUD ---
Surgery/Procedure H&P Update DATE OF PROCEDURE: October 16, 2022 DATE H&P PERFORMED: 10/13/22 H&P UPDATE INFORMATION: I have reviewed H&P completed within last 30 days, I have examined patient prior to procedure and No changes to prior documentation PREOP DIAGNOSIS: Unstable angina/atherosclerotic heart disease/atrial fibrillation PRIMARY INDICATION FOR PROCEDURE: Increasing episodes of chest pain/borderline abnormal stress test/previous PCI PLANNED PROCEDURE: Left heart catheterization with left and right coronary angiogram PATIENT REASSESSED PRIOR TO SEDATION, WITH NO CHANGE NOTED: Yes PHYSICAL EXAM: alert, oriented x 3, clear to auscultation bilaterally and regular rate & rhythm AIRWAY EVAL/ANESTHESIA PLAN: normal airway, see other exam findings, ASA III, Monitored Anesthesia, Local Anesthesia, Risks, benefits & alternatives of sedation and/or procedure discussed and Patient agrees to continue as planned
[2022-10-16] MEDS: metoprolol tartrate 50 mg Tablet PO (20:33)
--- NOTE | 2022-10-16 23:06 | PC.NURSE ---
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 TR band in place with approx 17ml air per staff. Distal pulse intact, no evidence of hematoma. Mild redness to the hand noted, capillary refill less than 3. At 2115 1ml air removed, no evidence of bleeding. 2-3 ml air then taken out over 10-15 minutes until air was removed at 2245. Patient tolerated well, no evidence of bleeding, or hematoma throughout process. Distal pulse remain intact.
[2022-10-17] VITALS (22 sets, daily range): BP systolic 106–152; BP diastolic 60–84; PULSE 47–139; RESP 10–21; TEMP 36.3–37.2; O2SAT 90–98
--- NOTE | 2022-10-17 01:04 | PC.NURSE ---
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 Patient metoprolol was resumed, and administered per DEC. Patient later converted to sinus bradycardia rate 40-50s. Initially during shift, patient was having infrequent pauses, lasting approx 3.6-3.8 seconds. Around 010, pauses became more frequent and prolonged. Longest up to this point lasting 5 seconds. Patient asymptomatic, and BP stable. Called and notified hospitalist, . Orders received for Atropine PRN, for symptomatic bradycardia, must call before use. Per provider, will continue to monitor at this time. No additional changes or orders received.
[2022-10-17] MEDS: DOPamine drip 400 MG/250 ML PREMIX 9.78 MG IV (02:22)
[2022-10-17] MEDS: sodium chloride 0.9% 1,000 ML 75 ML IV (02:30)
[2022-10-17] MEDS: nitroglycerin 1 gm/inch oint Pkt 0.5 INCH TOPICAL (03:59)
[2022-10-17] MEDS: acetaminophen 325 mg Tablet 650 MG PO (04:28)
[2022-10-17] MEDS: fenofibrate 145 mg Tablet PO (09:11)
[2022-10-17] MEDS: ARIPiprazole 10 mg Tablet 15 MG PO (09:11)
[2022-10-17] MEDS: isosorbide mononitrate ER 60 mg Tablet 90 MG PO (09:11)
[2022-10-17] MEDS: atorvastatin 40 mg Tablet 80 MG PO (09:11)
[2022-10-17] MEDS: cetirizine 10 mg Tablet PO (09:11)
[2022-10-17] MEDS: sertraline 100 mg Tablet PO (09:11)
[2022-10-17] MEDS: HYDROcodone-acetaminophen 5-325 mg Tablet 1 TAB PO ×2 (09:12→20:37)
--- NOTE | 2022-10-17 09:18 | PM.PN ---
Subjective Subjective: Patient had a cardiac catheterization yesterday. She was found to have a high-grade lesion in the obtuse marginal branch of the circumflex artery for which she underwent PCI. She went into atrial fibrillation with rapid ventricular rate following the procedure. She was treated with metoprolol. Had episodes of bradycardia and prolonged pauses of more than 5 seconds on the monitor. Currently she is in sinus rhythm. Medications: Medication Review Details: Current Medications Acetaminophen (Acetaminophen 325 Mg Tablet) 650 mg PO Q6H PRN PRN Reason: Mild/Mod Pain Or Temp >/= 101 Last Admin: 10/17/22 04:28 Dose: 650 mg Hydrocodone Bitart/Acetaminophen (Hydrocodone-Acetaminophen 5-325 Mg Tablet) 1 tab PO TID [facility] Last Admin: 10/17/22 09:12 Dose: 1 tab Albuterol Sulfate (Albuterol 2.5 Mg/3 Ml Neb) 2.5 mg INHALATION Q4H.RESPIRATORY PRN PRN Reason: SHORTNESS OF BREATH Last Admin: 10/14/22 11:41 Dose: 2.5 mg Apixaban (Apixaban 5 Mg Tablet) 5 mg PO BID [facility] Last Admin: 10/17/22 09:02 Dose: Not Given Aripiprazole (Aripiprazole 10 Mg Tablet) 15 mg PO DAILY [facility] Last Admin: 10/17/22 09:11 Dose: 15 mg Atorvastatin Calcium (Atorvastatin 40 Mg Tablet) 80 mg PO DAILY [facility] Last Admin: 10/17/22 09:11 Dose: 80 mg Atropine Sulfate (Atropine 0.4 Mg/Ml Sdv 1ml) 0.5 mg IVP Q5MIN PRN PRN Reason: HEART RATE < 40/MIN Cetirizine HCl (Cetirizine 10 Mg Tablet) 10 mg PO DAILY [facility] Last Admin: 10/17/22 09:11 Dose: 10 mg Fenofibrate (Fenofibrate 145 Mg Tablet) 145 mg PO DAILY [facility] Last Admin: 10/17/22 09:11 Dose: 145 mg Furosemide (Furosemide 10 Mg/Ml Sdv 4ml) 40 mg IVP Q12H [facility] Last Admin: 10/15/22 19:51 Dose: Not Given Hydromorphone HCl (Hydromorphone 1 Mg/Ml Inj 1 Ml) 1 mg IVP Q6H PRN PRN Reason: PAIN Last Admin: 10/15/22 09:24 Dose: 1 mg Sodium Chloride (Sodium Chloride 0.9%) 1,000 mls @ 75 mls/hr IV .[id number] [facility] Last Admin: 10/17/22 02:30 Dose: 75 mls/hr Dopamine HCl/Dextrose (Intropin Drip) 400 mg in 250 mls @ 19.561 mls/hr IV CONT [facility]; Protocol Last Titration: 10/17/22 06:44 Dose: 0 mcg/kg/min, 0 mls/hr Isosorbide Mononitrate (Isosorbide Mononitrate Er 60 Mg Tablet) 90 mg PO DAILY [facility] Last Admin: 10/17/22 09:11 Dose: 90 mg Lanolin (Lanolin Oint 7 Gm) 1 applic TOPICAL PRN PRN PRN Reason: DRYNESS Last Admin: 10/16/22 09:22 Dose: 1 applic Metoprolol Tartrate (Metoprolol Tartrate 50 Mg Tablet) 50 mg PO BID@0900,2100 [facility] Last Admin: 10/17/22 09:01 Dose: Not Given Nitroglycerin (Nitroglycerin 0.4 Mg Sublingual Tablet) 0.4 mg SUBLINGUAL Q5M PRN PRN Reason: CHEST PAIN Last Admin: 10/15/22 08:53 Dose: 0.4 mg Non-Formulary Medication (Tpbbxbvrzc-Lvqbayzx-Avjrwe Ala [Odefsey]) 1 tab PO 1700 [facility] Last Admin: 10/16/22 23:54 Dose: Not Given Ondansetron HCl (Ondansetron 2 Mg/Ml Sdv 2 Ml) 4 mg IVP Q8H PRN PRN Reason: vomiting, or N/V if npo Sertraline HCl (Sertraline 100 Mg Tablet) 100 mg PO DAILY [facility] Last Admin: 10/17/22 09:11 Dose: 100 mg Ticagrelor (Ticagrelor 90 Mg Tablet) 90 mg PO BID [facility] Last Admin: 10/16/22 17:32 Dose: 90 mg Vitals/I&O/Wt Last Vital Signs Temp 98.7 F 10/17/22 07:57 Pulse 62 10/17/22 07:58 Resp 16 10/17/22 07:58 BP 106/82 10/17/22 07:57 Pulse Ox 96 10/17/22 07:58 O2 Del Method 10/17/22 07:58 O2 Flow Rate 3 10/17/22 07:58 FiO2 36 10/15/22 20:00 10/16/22 10/17/22 10/17/22 22:59 06:59 14:59 Intake Total 240 / 1080 1078.566 / 2158.566 Output Total 425 / 425 1250 / 1675 Balance -185 / 655 -171.434 / 483.566 Physical Exam Narrative: GENERAL: The patient is alert and oriented times three. Not in any acute distress. Obese HEENT: No significant pallor, icterus or lymphadenopathy.Oral cavity: There are no mucous membrane lesions. NECK: Trachea appears to be central. No masses noted. No JVD or thyromegaly appreciated. RESPIRATORY: Chest is symmetrical. No intercostals muscle retraction or any accessory muscle activation. There is no chest wall tenderness. Breath sounds are heard bilaterally. No rales or rhonchi heard. No evidence of any consolidation. BREASTS: Deferred. HEART: The heart sounds are normal. No S3 or S4. No significant murmurs. No pericardial rub ABDOMEN: No vessel pulsations or distention. No tenderness. No organomegaly appreciated. Bowel sounds are normally heard. : Deferred. RECTAL: Deferred. LYMPHATIC: No lymphadenopathy noted in the neck. EXTREMITIES: No edema or cyanosis. No clubbing. MUSCULOSKELETAL: No acute joint deformities or swelling SKIN: There are no significant rashes or ecchymosis NEUROPSYCHIATRIC: The patient is alert and oriented x3. Appears to be drowsy. Apparently she did not sleep well last night. She also has sleep apnea Data 10/16/22 04:51 10/16/22 14:05 Other Labs: Laboratory Last Values WBC 9.0 10^3/uL (4.0-10.0) 10/16/22 04:51 RBC 4.42 10^6/uL (4.1-5.3) 10/16/22 04:51 Hgb 13.7 g/dL (11.5-15.3) 10/16/22 04:51 Hct 43.3 % (37.0-47.0) 10/16/22 04:51 MCV 98.0 fl (81-99) 10/16/22 04:51 MCH 31.0 pg (28.0-34.0) 10/16/22 04:51 MCHC 31.6 g/dL (30.0-36.0) 10/16/22 04:51 RDW 15.5 % (12.1-15.1) H 10/16/22 04:51 Plt Count 233 10^3/cmm (130-400) 10/16/22 04:51 MPV 10.1 fL (7.4-10.4) 10/16/22 04:51 Neut % (Auto) 73.1 % 10/16/22 04:51 Lymph % (Auto) 15.6 % 10/16/22 04:51 Grant % (Auto) 8.9 % 10/16/22 04:51 Eos % (Auto) 1.3 % 10/16/22 04:51 Baso % (Auto) 0.2 % 10/16/22 04:51 Neut # (Auto) 6.56 10^3/uL (1.8-7.7) 10/16/22 04:51 Lymph # (Auto) 1.4 10^3/uL (0.8-4.8) 10/16/22 04:51 Grant # (Auto) 0.8 10^3/uL (0.2-0.9) 10/16/22 04:51 Eos # (Auto) 0.1 10^3/uL (0.0-0.8) 10/16/22 04:51 Baso # (Auto) 0.0 10^3/uL (0.0-0.1) 10/16/22 04:51 Nucleated RBC % (auto) 0 % 10/16/22 04:51 Nucleated RBCs # 0.0 /100WBC 10/16/22 04:51 Specimen Type Arterial 10/12/22 19:20 Sample Site Radial, right 10/12/22 19:20 ABG pH 7.32 (7.35-7.45) L 10/12/22 19:20 ABG pCO2 71.6 mmHg (35-45) H* 10/12/22 19:20 ABG pO2 44.3 mmHg (80.0-100.0) L 10/12/22 19:20 ABG HCO3 36.7 mmol/L (22-26) H 10/12/22 19:20 ABG Base Excess 7.9 mmol/L (-2.0-2.0) H 10/12/22 19:20 Eddie Test Pos 10/12/22 19:20 Hematocrit 40.0 % (37-47) 10/12/22 19:20 O2 Delivery Device Nc 10/12/22 19:20 O2 Liters/Min 3.0 % 10/12/22 19:20 FiO2 32.0 % 10/12/22 19:20 [employer] ID Droch 10/12/22 19:20 Sodium 140 mmol/L (136-145) 10/16/22 14:05 Potassium 4.2 mmol/L (3.5-5.1) 10/16/22 14:05 Chloride 101 mmol/L (98-107) 10/16/22 14:05 Carbon Dioxide 29 mmol/L (22-29) 10/16/22 14:05 Anion Gap 14.2 (5-19) 10/16/22 14:05 BUN 38 mg/dL (8-23) H 10/16/22 14:05 Creatinine 1.0 mg/dL (0.5-0.9) H 10/16/22 14:05 GFR Calculation 55.8 mL/min (90-130) L 10/16/22 14:05 Glucose 179 mg/dL (65-115) H 10/16/22 14:05 Calculated Osmolality 304 mOsm/kg (285-295) H 10/16/22 14:05 Calcium 9.1 mg/dL (8.5-10.5) 10/16/22 14:05 Magnesium 2.0 mg/dL (1.7-2.3) 10/14/22 04:33 Total Bilirubin 0.4 mg/dL (0.15-1.2) 10/16/22 04:51 AST 13 U/L (0-32) 10/16/22 04:51 ALT 16 U/L (0-33) 10/16/22 04:51 Alkaline Phosphatase 82 U/L (35-105) 10/16/22 04:51 Troponin T Baseline 19 ng/L (0-10) H 10/13/22 14:01 Troponin T 120 Minute 18.72 ng/L (0-10) H 10/13/22 16:02 Delta Troponin T -0.28 ABS# (0-10) L 10/13/22 16:02 Troponin T Hi Sens 6Hr 14.65 ng/L (0-10) H 10/13/22 21:00 Troponin T Hi Sens 6Hr Delta -4.35 ng/L (0-12) L 10/13/22 21:00 NT-Pro-B Natriuret Pep 1000 pg/mL (0-125) H 10/12/22 18:25 Total Protein 7.1 g/dL (6.6-8.7) 10/16/22 04:51 Albumin 4.0 g/dL (3.5-5.2) 10/16/22 04:51 Globulin 3.1 g/dL (1.3-4.6) 10/16/22 04:51 Procalcitonin 0.06 ng/mL (0-0.5) 10/12/22 18:25 TSH 1.07 uIU/mL (0.27-4.20) 10/12/22 18:25 TSH Cancelled 10/12/22 18:25 A&P Assessment and plan (1) Atrial fibrillation with RVR: Patient has features of sinus node dysfunction/sick sinus syndrome. For further management of her condition, she requires a permanent pacemaker implantation. (2) Atherosclerotic heart disease of [place] coronary artery without angina pectoris: Patient s/p cardiac catheterization. Status post PCI of the circumflex OM lesion. Currently stable and asymptomatic (3) Dyslipidemia: May continue on the current medications. (4) Accelerated hypertension: Pressure seems to be getting under control. (5) Diastolic heart failure: May continue diuretics on a as needed basis Plan In view of the patient is a tachy or bina arrhythmias and prolonged pauses even after intervention, she requires a permanent pacer implantation for further management of the condition. This was discussed with the patient in detail which she understood well and consented to proceed. She may benefit from a dual-chamber Micra. I discussed with Dr. Villarreal about this. Dr. Perez will see this patient and arrange for the same. The plan was discussed with Dr. Zavala. Since I am going to be out of town, I endorsed this patient to Dr. Bey. Attestations Medical Necessity Statement*: Patient requires continued hospital stay for close monitoring and further management Coding Level of Care Code Acute Code for Chg Fwd History Expanded Problem Focused Exam Detailed Medical Decision Making Moderate Complexity Diagnoses Atrial fibrillation with RVR I48.91 Atherosclerotic heart disease of [place] coronary artery without angina pectoris I25.10 Dyslipidemia E78.5 Accelerated hypertension I10 Diastolic heart failure I50.30
[2022-10-17] MEDS: ticagrelor 90 mg Tablet PO ×2 (10:02→17:11)
[2022-10-17 10:19] LABS: Blood Urea Nitrogen 25 mg/dL (8-23); Calcium 8.6 mg/dL (8.5-10.5); Carbon Dioxide 27 mmol/L (22-29); Chloride 105 mmol/L (98-107); Glomerular Filtration Rate 72.2 mL/min (90-130); Glucose 110 mg/dL (65-115); Osmolality Calculated 297 mOsm/kg (285-295); Sodium 141 mmol/L (136-145)
[2022-10-17 10:28] LABS: Anion Gap 13.5 (5-19); Potassium 4.5 mmol/L (3.5-5.1)
--- NOTE | 2022-10-17 11:12 | PM.PN ---
Subjective Subjective: Patient underwent cardiac cath last evening and received a drug-eluting stent to the LCx overnight. After return from [employer] she had a run of A. malu with RVR with heart rate in the 130s. She received metoprolol 50 mg following which she developed a 5-second pause and has been bradycardic in the 50s since then. Plan is for pacemaker tomorrow morning. Patient denies any new complaints. Denies any chest pain this morning. Currently euvolemic so Lasix is being held. It appears that all of her on hold orders had been released after return from [employer]. She did not get the Eliquis this morning. Medications: Reviewed: Yes Medication Review Details: Current Medications Acetaminophen (Acetaminophen 325 Mg Tablet) 650 mg PO Q6H PRN PRN Reason: Mild/Mod Pain Or Temp >/= 101 Last Admin: 10/17/22 04:28 Dose: 650 mg Hydrocodone Bitart/Acetaminophen (Hydrocodone-Acetaminophen 5-325 Mg Tablet) 1 tab PO TID [facility] Last Admin: 10/17/22 09:12 Dose: 1 tab Albuterol Sulfate (Albuterol 2.5 Mg/3 Ml Neb) 2.5 mg INHALATION Q4H.RESPIRATORY PRN PRN Reason: SHORTNESS OF BREATH Last Admin: 10/14/22 11:41 Dose: 2.5 mg Apixaban (Apixaban 5 Mg Tablet) 5 mg PO BID [facility] Last Admin: 10/17/22 09:02 Dose: Not Given Aripiprazole (Aripiprazole 10 Mg Tablet) 15 mg PO DAILY [facility] Last Admin: 10/17/22 09:11 Dose: 15 mg Atorvastatin Calcium (Atorvastatin 40 Mg Tablet) 80 mg PO DAILY [facility] Last Admin: 10/17/22 09:11 Dose: 80 mg Atropine Sulfate (Atropine 0.4 Mg/Ml Sdv 1ml) 0.5 mg IVP Q5MIN PRN PRN Reason: HEART RATE < 40/MIN Cetirizine HCl (Cetirizine 10 Mg Tablet) 10 mg PO DAILY [facility] Last Admin: 10/17/22 09:11 Dose: 10 mg Fenofibrate (Fenofibrate 145 Mg Tablet) 145 mg PO DAILY [facility] Last Admin: 10/17/22 09:11 Dose: 145 mg Furosemide (Furosemide 10 Mg/Ml Sdv 4ml) 40 mg IVP Q12H [facility] Last Admin: 10/15/22 19:51 Dose: Not Given Hydromorphone HCl (Hydromorphone 1 Mg/Ml Inj 1 Ml) 1 mg IVP Q6H PRN PRN Reason: PAIN Last Admin: 10/15/22 09:24 Dose: 1 mg Sodium Chloride (Sodium Chloride 0.9%) 1,000 mls @ 75 mls/hr IV .[id number] [facility] Last Admin: 10/17/22 02:30 Dose: 75 mls/hr Dopamine HCl/Dextrose (Intropin Drip) 400 mg in 250 mls @ 19.561 mls/hr IV CONT [facility]; Protocol Last Titration: 10/17/22 06:44 Dose: 0 mcg/kg/min, 0 mls/hr Isosorbide Mononitrate (Isosorbide Mononitrate Er 60 Mg Tablet) 90 mg PO DAILY [facility] Last Admin: 10/17/22 09:11 Dose: 90 mg Lanolin (Lanolin Oint 7 Gm) 1 applic TOPICAL PRN PRN PRN Reason: DRYNESS Last Admin: 10/16/22 09:22 Dose: 1 applic Metoprolol Tartrate (Metoprolol Tartrate 50 Mg Tablet) 50 mg PO BID@0900,2100 [facility] Last Admin: 10/17/22 09:01 Dose: Not Given Nitroglycerin (Nitroglycerin 0.4 Mg Sublingual Tablet) 0.4 mg SUBLINGUAL Q5M PRN PRN Reason: CHEST PAIN Last Admin: 10/15/22 08:53 Dose: 0.4 mg Non-Formulary Medication (Eaqhhxeouw-Ktluxaxc-Hpymtu Ala [Odefsey]) 1 tab PO 1700 [facility] Last Admin: 10/16/22 23:54 Dose: Not Given Ondansetron HCl (Ondansetron 2 Mg/Ml Sdv 2 Ml) 4 mg IVP Q8H PRN PRN Reason: vomiting, or N/V if npo Sertraline HCl (Sertraline 100 Mg Tablet) 100 mg PO DAILY [facility] Last Admin: 10/17/22 09:11 Dose: 100 mg Ticagrelor (Ticagrelor 90 Mg Tablet) 90 mg PO BID [facility] Last Admin: 10/16/22 17:32 Dose: 90 mg Vitals/I&O/Wt Last Vital Signs Temp 98.7 F 10/17/22 07:57 Pulse 62 01/13/23 07:58 Resp 16 10/17/22 07:58 BP 106/82 10/17/22 07:57 Pulse Ox 96 10/17/22 07:58 O2 Del Method 10/17/22 07:58 O2 Flow Rate 3 10/17/22 07:58 FiO2 36 10/15/22 20:00 10/16/22 10/17/22 10/17/22 22:59 06:59 14:59 Intake Total 240 / 1080 1078.566 / 2158.566 Output Total 425 / 425 1250 / 1675 Balance -185 / 655 -171.434 / 483.566 Physical Exam Narrative: General: No acute distress, AO x3 HEENT: PERRLA, pupils bilaterally equal and reactive, pallors not present Chest: Normal vesicular breath sounds, no added sounds, equal good air entry bilaterally CVS: S1-S2 regular, no murmurs, no tachycardia, no gallops, no rubs Abdomen: Soft, nontender, no organomegaly, bowel sounds present Neuro: No focal deficits, no facial deformity, AO x3, power 5/5 in all limbs Data 10/16/22 04:51 10/17/22 09:55 A&P Assessment and plan (1) Atherosclerotic heart disease of [place] coronary artery with other forms of angina pectoris: (2) SOB (shortness of breath): (3) Dyslipidemia: (4) Benign essential HTN: (5) Atrial fibrillation with RVR: (6) Diastolic heart failure: Plan #Shortness of breath, increased lower extremity edema #Acute on chronic congestive diastolic heart failure Patient has been receiving IV diuresis with Lasix 40 mg IV every 12 until September 15, 2023. On September 15 diuresis has been placed on hold as patient is currently euvolemic. She is net -2.2 L since admission. We will continue to hold Lasix for now and use as needed. Echocardiogram from July 2022 showed LVEF of 71% with mild left ventricular hypertrophy and grade 3 diastolic dysfunction. Creatinine has improved today to 0.8 #Unstable angina Patient continued to complain of chest pain during her course of admission here. She had recently had an abnormal stress test in July 2022. With persisting chest pain she underwent cardiac catheterization on 10/16 and received a drug-eluting stent into the LCx. #Atrial fibrillation with RVR; sick sinus syndrome Patient initially had runs of A. fib with RVR, however any rate limiting medication drops her heart rate down to the 50s and gives her prolonged pauses of 4 to 5 seconds. She likely has underlying sick sinus syndrome. Metoprolol and sotalol have been tried on this admission without success. Currently she is in sinus rhythm however bradycardic in the 50s. Plan is for pacemaker placement tomorrow. #COPD, not currently excaerbated #Hypertension: Blood pressure currently controlled Attestations Medical Necessity Statement*: planned pacemaker placement tomorrow Coding Level of Care Code Acute Code for [facility] Fwd Diagnoses Atherosclerotic heart disease of [place] coronary artery with other forms of angina pectoris I25.118 SOB (shortness of breath) R06.02 Dyslipidemia E78.5 Benign essential HTN I10 Atrial fibrillation with RVR I48.91 Diastolic heart failure I50.30
--- NOTE | 2022-10-17 12:57 | P.CONIM_ITS ---
Providers/Reason For Consult Consulting Physician/Specialty*: Dr. Villarreal/cardiothoracic surgery Reason for Consult*: Heart block Requesting Physician: Dr. Archer Attending Physician: Sary Zavala MD Primary Care Provider: Alexa Ayers APN History of Present Illness History of Present Illness Katie Ragsdale is a 66 year old female whom I been consulted by phone by Dr. Archer to consider pacemaker implantation. She originally was admitted on October 12 after presenting with shortness of breath and with intermittent chest discomfort for 3 days prior to presentation. She has a history of coronary artery disease, dyslipidemia, atrial fibrillation and diastolic heart dysfunction. She is on Eliquis for her atrial fibrillation. At time of presentation she was in A. fib with RVR, and had uncontrolled hypertension. She was started on Cardizem drip. Myocardial perfusion study revealed small to moderate area of persistent d ecreased type tracer uptake in the anterior wall region. She had normal LV function of 60%. No gross wall motion abnormalities. Dr. Archer describes periods of bradycardia with heart rate in the 20s and 30s. She had continues episodes of chest discomfort. She underwent left heart catheterization yesterday. She underwent PCI to an OMB branch of the circumflex. She had A. fib with RVR post procedure and was treated with metoprolol. With episodes of bradycardia were described following this with pauses up to 5 seconds. Currently in sinus rhythm Since her PCI, she is now also on Brilinta in addition to Eliquis. Dr. Archer is preparing to leave [facility] and has contacted me for pacemaker impl antation. Nursing service reports that he has spoken with Ms. Ragsdale about this. Review of Systems Const: Reports: fatigue and malaise; Denies: fever(s) or chills Card: Reports: chest pain, palpitations, irregular heart rhythm and dyspnea on exertion GI: Denies: abdominal pain, nausea, vomiting or hematemesis Musc: Reports: back pain Psych: Reports: anxiety Medications/Allergies Home Medications Medication Instructions Recorded Confirmed Last Taken Type albuterol sulfate 90 mcg/actuation 2 puff inhalation QID PRN 05/26/22 10/13/22 Unknown History aerosol inhaler shortness of breath or wheezing apixaban 5 mg tablet (Eliquis) 5 mg PO BID 05/26/22 10/13/22 Unknown History aripiprazole 15 mg tablet (Abilify) 15 mg PO QAM 05/26/22 10/13/22 Unknown History atorvastatin 80 mg tablet 80 mg PO BEDTIME 05/26/22 10/13/22 Unknown History cetirizine 10 mg tablet 10 mg PO QAM 05/26/22 10/13/22 Unknown History emtricitabine 200 mg-rilpivirine 1 tab PO BEDTIME 05/26/22 10/13/22 Unknown History 25 mg-tenofovir alafenam 25 mg tablet (Natalia) fenofibrate nanocrystallized 145 145 mg PO QAM 05/26/22 10/13/22 Unknown History mg tablet lisinopril 5 mg tablet 5 mg PO QAM 05/26/22 10/13/22 Unknown History nitroglycerin 0.4 mg sublingual 0.4 mg sublingual Q5M PRN chest 05/26/22 10/13/22 Unknown History tablet pain sertraline 100 mg tablet 100 mg PO QAM 05/26/22 10/13/22 Unknown History furosemide 40 mg tablet 40 mg PO DAILY #90 tabs 09/02/22 10/13/22 Unknown Rx Live Better Over 50 Multivit 1 tab PO DAILY 10/13/22 10/13/22 Unknown History Saw [place]ries 2 tab PO QAM 10/13/22 10/13/22 Unknown History aspirin 325 mg tablet 325 mg PO DAILY PRN Chest Pain 10/13/22 10/13/22 Unknown History bupropion HCl 300 mg 24 hr tablet, 300 mg PO DAILY@12 10/13/22 10/13/22 Unknown History extended release carica papaya (Papaya Enzyme 1 tab PO DAILY 10/13/22 10/13/22 Unknown History tablet) celecoxib 100 mg capsule 100 mg PO BEDTIME 10/13/22 10/13/22 Unknown History cholecalciferol (vitamin D3) 100 8,000 unit PO QAM 10/13/22 10/13/22 Unknown History mcg (4,000 unit) capsule fluticasone fur. 100 mcg-umeclid 1 ea inhalation DAILY 10/13/22 10/13/22 Unknown History 62.5 mcg-vilant 25 mcg inhalat.powder (Trelegy Ellipta) fluticasone propionate 50 2 spray intranasal DAILY 10/13/22 10/13/22 Unknown History mcg/actuation nasal spray,suspension gabapentin 300 mg capsule 600 mg PO TID 10/13/22 10/13/22 Unknown History hydrocodone 5 mg-acetaminophen 325 1 tab PO .EVERY 4-6 HOURS PRN Pain 10/13/22 10/13/22 Unknown History mg tablet isosorbide mononitrate 60 mg 60 mg PO QAM 10/13/22 10/13/22 Unknown History tablet,extended release 24 hr levofloxacin 500 mg tablet 500 mg PO DAILY 10/13/22 10/13/22 10/11/22 History metformin 500 mg tablet 500 mg PO QAM 10/13/22 10/13/22 Unknown History metoprolol succinate 50 mg 50 mg PO DAILY 10/13/22 10/13/22 Unknown History tablet,extended release 24 hr omega-3 fatty acids-fish oil 684 1 cap PO DAILY 10/13/22 10/13/22 Unknown History mg-1,200 mg capsule,delayed release potassium chloride 8 mEq 16 meq PO BID 10/13/22 10/13/22 Unknown History tablet,extended release vitamin A-vitamin C-vit E-min 2 tab PO QAM 10/13/22 10/13/22 Unknown History tablet zinc acetate 50 mg (zinc) capsule 50 mg PO DAILY 10/13/22 10/13/22 Unknown History Allergies Allergy/AdvReac Type Severity Reaction Status Date / Time No Known Allergies Allergy Verified 10/13/22 10:03 Current Medications Generic Name Dose Route Start Last Admin Trade Name Freq PRN Reason Stop Dose Admin Acetaminophen 650 mg 10/12/22 21:26 10/17/22 04:28 Acetaminophen 325 Mg Tablet PO 650 mg Q6H PRN Administration Mild/Mod Pain Or Temp >/= 101 Hydrocodone Bitart/Acetaminophen 1 tab 10/13/22 15:00 10/17/22 09:12 Hydrocodone-Acetaminophen 5-325 Mg Tablet PO 1 tab TID RAINE Administration Albuterol Sulfate 2.5 mg 10/13/22 09:53 10/14/22 11:41 Albuterol 2.5 Mg/3 Ml Neb INHALATION 2.5 mg Q4H.RESPIRATORY PRN Administration SHORTNESS OF BREATH Apixaban 5 mg 10/13/22 09:00 10/17/22 09:02 Apixaban 5 Mg Tablet PO Not Given BID RAINE Aripiprazole 15 mg 10/13/22 09:00 10/17/22 09:11 Aripiprazole 10 Mg Tablet PO 15 mg DAILY RAINE Administration Atorvastatin Calcium 80 mg 10/13/22 09:00 10/17/22 09:11 Atorvastatin 40 Mg Tablet PO 80 mg DAILY RAINE Administration Cetirizine HCl 10 mg 10/13/22 09:00 10/17/22 09:11 Cetirizine 10 Mg Tablet PO 10 mg DAILY RAINE Administration Fenofibrate 145 mg 10/13/22 09:00 10/17/22 09:11 Fenofibrate 145 Mg Tablet PO 145 mg DAILY RAINE Administration Furosemide 40 mg 10/13/22 10:30 10/15/22 19:51 Furosemide 10 Mg/Ml Sdv 4ml IVP Not Given Q12H RAINE Hydromorphone HCl 1 mg 10/13/22 22:54 10/15/22 09:24 Hydromorphone 1 Mg/Ml Inj 1 Ml IVP 1 mg Q6H PRN Administration PAIN Dopamine HCl/Dextrose 400 mg in 250 mls @ 19.561 mls/hr 10/17/22 02:15 10/17/22 06:44 Intropin Drip IV 0 mcg/kg/min CONT RAINE 0 mls/hr Titration Protocol 5 MCG/KG/MIN Isosorbide Mononitrate 90 mg 10/13/22 09:00 10/17/22 09:11 Isosorbide Mononitrate Er 60 Mg Tablet PO 90 mg DAILY [facility] Administration Lanolin 1 applic 10/16/22 08:13 10/16/22 09:22 Lanolin Oint 7 Gm TOPICAL 1 applic PRN PRN Administration DRYNESS Metoprolol Tartrate 50 mg 10/13/22 09:00 10/17/22 09:01 Metoprolol Tartrate 50 Mg Tablet PO Not Given BID@0900,2100 [facility] Nitroglycerin 0.4 mg 10/15/22 08:34 10/15/22 08:53 Nitroglycerin 0.4 Mg Sublingual Tablet SUBLINGUAL 0.4 mg Q5M PRN Administration CHEST PAIN Non-Formulary Medication 1 tab 10/13/22 01:00 10/16/22 23:54 Nhoveoiyil-Icvorbur-Ryalco Ala [Odefsey] PO Not Given 1700 [facility] Sertraline HCl 100 mg 10/13/22 09:00 10/17/22 09:11 Sertraline 100 Mg Tablet PO 100 mg DAILY RAINE Administration Ticagrelor 90 mg 10/13/22 09:00 10/17/22 10:02 Ticagrelor 90 Mg Tablet PO 90 mg BID RAINE Administration PFSH Acute PFSH: Medical History CAD (coronary artery disease) COPD (chronic obstructive pulmonary disease) Hypertension Peripheral edema Surgical History History of PTCA Family History Father CAD (coronary artery disease), Onset Age: 46 [place] Cancer Dementia Diabetes Mother CAD (coronary artery disease), Onset Age: 82 Diabetes Denies family history of Clotting disorder Chronic kidney disease (CKD) Suicide Anesthesia complication Bleeding disorder Lung disease Stroke Social History Smoking and tobacco status: former smoker Alcohol intake: former Vitals/I&O/Wt Last Vital Signs Temp 98.9 F 10/17/22 11:37 Pulse 57 L 10/17/22 11:37 Resp 20 H 10/17/22 11:37 BP 114/70 10/17/22 11:37 Pulse Ox 92 10/17/22 11:37 O2 Del Method 10/17/22 11:37 O2 Flow Rate 3 10/17/22 07:58 FiO2 36 10/15/22 20:00 10/16/22 10/17/22 10/17/22 22:59 06:59 14:59 Intake Total 240 / 1080 1078.566 / 2158.566 480 / 480 Output Total 425 / 425 1250 / 1675 Balance -185 / 655 -171.434 / 483.566 480 / 480 Physical Exam Const: COMMON NORMALS: no acute distress and patient oriented x3; negative for average body habitus (Obese) HENMT: COMMON NORMALS: normocephalic, atraumatic, hearing grossly normal bilaterally and Normal external nose present HEAD & SCALP: normocephalic and atraumatic NOSE: Normal external nose present Neck/C-Spine: COMMON NORMALS: full ROM and no lymphadenopathy Resp: COMMON NORMALS: normal respiratory effort, No use of accessory muscles and clear to auscultation bilaterally AUSCULTATION: clear to auscultation bilaterally Cardio: COMMON NORMALS: regular rate, regular rhythm and S1 normal heart sound present RATE: regular rate RHYTHM: regular rhythm HEART SOUNDS: S1 normal heart sound present GI: COMMON NORMALS: Normal to inspection, nondistended, normoactive bowel sounds present INSPECTION: Yes central obesity Extremity: NARRATIVE EXTREMITY EXAM: 1+ pretibial edema Neuro: COMMON NORMALS: patient oriented x3, moves all extremities, no focal motor deficits and no sensory deficits noted Psych: COMMON NORMALS: mental status grossly normal, Normal thought process present, cooperative, normal affect and speech normal SPEECH: Yes normal speech THOUGHT PROCESS: Normal thought process present Skin: NARRATIVE SKIN EXAM: There is ecchymosis to both upper extremities GENERAL SKIN EXAM: ecchymosis Data 10/16/22 04:51 10/17/22 09:55 A&P Assessment and plan (1) Atrial fibrillation with RVR: Bradycardic diagnosis has not been added to the problem list. I will defer to Dr. Archer to specify the appropriate diagnoses specificity. Patient will be at increased risk for bleeding and wound complications related to her anticoagulation which now includes Brilinta and Eliquis as well as her body habitus. We originally planned for a Micra Medtronic leadless pacemaker implantation tomorrow due to her risk for infection as well as bleeding complications, though standard transvenous pacemaker could be attempted. I had a lengthy conversation with her concerning the details and risk of pacemaker implantation and the specific unique qualities of a Micra leadless pacemaker. I demonstrated the size of the device and discussed the general technique for lead implantation. It was fairly obvious early in my conversation that she was not particularly interested in proceeding with another procedure. We did discuss the concern related to her episodic periods of bradycardia and that these may result in injury should she have syncope, for blood pressure fluctuation, which may result in a fall. She stated that she wanted her bruising to get better and that she would think about it for a week or so . She stated she did not want to proceed with pacemaker implantation at this time. She stated she understood the risk of not proceeding. Consult Attestations Medical Necessity Statement: Heart block/sinus pauses Coding Level of Care Code New Pt Acute Code for Chg Fwd Patient Type New History Detailed Exam Detailed Medical Decision Making Moderate Complexity Diagnoses Atrial fibrillation with RVR I48.91
[2022-10-17] MEDS: mupirocin oint 22 gm 1 APPLIC NOSTRIL-B (14:25)
--- NOTE | 2022-10-17 19:13 | PC.NURSE ---
Surgeon at bedside regarding discussion on possible pacemaker tomorrow. Pt voice concern about the size of the device, she stated she does not want a pacemaker device that is huge like a box. Dr Horn educated her about different pacemaker sizes. After the discussion, pt voice out to surgeon that she would like to wait on the pacemaker procedure. Received orders from Dr Horn to restart her Eliquis and resume diet. He will put order to cancel the procedure for tomorrow.
[2022-10-18 03:50] VITALS: BP 141/81; PULSE 64; RESP 19; TEMP 36.3; O2SAT 65
[2022-10-18 04:20] LABS: Basophils % 0.5 %; Eosinophils # 0.1 10^3/uL (0.0-0.8); Eosinophils % 1.1 %; Hematocrit 39.3 % (37.0-47.0); Hemoglobin 12.5 g/dL (11.5-15.3); Lymphocytes # 1.3 10^3/uL (0.8-4.8); Lymphocytes % 14.6 %; Mean Corpuscular HGB Conc 31.8 g/dL (30.0-36.0); Mean Corpuscular Hemoglobin 30.9 pg (28.0-34.0); Mean Corpuscular Volume 97.3 fl (81-99); Mean Platelet Volume 9.9 fL (7.4-10.4); Monocytes # 0.9 10^3/uL (0.2-0.9); Monocytes % 9.8 %; Neutrophils # 6.46 10^3/uL (1.8-7.7); Neutrophils % 73.4 %; Nucleated Red Blood Cells % 0 %; Platelet Count 200 10^3/cmm (130-400); Red Blood Count 4.04 10^6/uL (4.1-5.3); White Blood Count 8.8 10^3/uL (4.0-10.0)
[2022-10-18 04:46] LABS: Alanine Aminotransferase 12 U/L (0-33); Alkaline Phosphatase 74 U/L (35-105); Anion Gap 11.4 (5-19); Aspartate Amino Transferase 14 U/L (0-32); Blood Urea Nitrogen 25 mg/dL (8-23); Calcium 8.9 mg/dL (8.5-10.5); Carbon Dioxide 32 mmol/L (22-29); Chloride 103 mmol/L (98-107); Glomerular Filtration Rate 55.8 mL/min (90-130); Glucose 127 mg/dL (65-115); Osmolality Calculated 300 mOsm/kg (285-295); Potassium 4.4 mmol/L (3.5-5.1); Sodium 142 mmol/L (136-145); Total Bilirubin 0.5 mg/dL (0.15-1.2)
[2022-10-18 04:57] LABS: Creatinine Clr Calc Pharmacy 66.8883
[2022-10-18 04:58] VITALS: PULSE 59
[2022-10-18] MEDS: acetaminophen 325 mg Tablet 650 MG PO (05:36)
[2022-10-18 08:00] VITALS: PULSE 59; RESP 16; O2SAT 97
[2022-10-18 08:25] VITALS: BP 141/81; PULSE 70; RESP 28; TEMP 36.8; O2SAT 100
[2022-10-18] MEDS: HYDROcodone-acetaminophen 5-325 mg Tablet 1 TAB PO (08:49)
[2022-10-18] MEDS: sertraline 100 mg Tablet PO (08:50)
[2022-10-18] MEDS: fenofibrate 145 mg Tablet PO (08:50)
[2022-10-18] MEDS: ARIPiprazole 10 mg Tablet 15 MG PO (08:50)
[2022-10-18] MEDS: isosorbide mononitrate ER 60 mg Tablet 90 MG PO (08:51)
[2022-10-18] MEDS: cetirizine 10 mg Tablet PO (08:51)
[2022-10-18] MEDS: apixaban 5 mg Tablet PO (08:52)
[2022-10-18] MEDS: ticagrelor 90 mg Tablet PO (08:52)
[2022-10-18] MEDS: atorvastatin 40 mg Tablet 80 MG PO (08:52)
--- NOTE | 2022-10-18 11:01 | P.DS_ITS ---
Discharge Providers Date of Admission: 10/12/22 22:06 Date of Discharge: October 18, 2022 Attending Provider at Admission: Penelope Johnson MD Attending Provider at Discharge: Toribio Drummond MD Consults: Cardiology Primary Care Provider: Alexa Ayers APN Diagnoses at Discharge Discharge Diagnosis (1) Atrial fibrillation with RVR: Status: Acute (2) Accelerated hypertension: Status: Acute (3) Diastolic heart failure: Status: Acute (4) Atherosclerotic heart disease of [place] coronary artery with other forms of angina pectoris: Status: Acute (5) Dyslipidemia: Status: Acute (6) Benign essential HTN: Status: Acute (7) Atherosclerotic heart disease of [place] coronary artery without angina pectoris: Status: Acute (8) Peripheral edema: Status: Acute (9) SOB (shortness of breath): Status: Acute Reason for Visit Reason for Visit: chest pain Hospital Course Hospital Course Katie Andrews is a 66-year-old female with a history of coronary artery disease, COPD, atrial fibrillation on apixaban, and hypertension who presented with shortness of breath and chest pain, found to have acute on chronic diastolic heart failure with preserved ejection fraction, unstable angina and atrial fibrillation with rapid ventricular rate with sick sinus syndrome. Cardiology was consulted and followed. She underwent cardiac catheterization with revealing a high-grade lesion in the obtuse marginal branch of the circumflex artery for which she underwent PCI. Hospital course was complicated by further atrial fibrillation with rapid ventricular rate for which she received metoprolol with subsequent bradycardia and sinus pauses consistent with sick sinus syndrome. Patient was advised to have pacemaker placed which she refused. Patient discharged home in stable condition. She remains high risk for bounce back given her sick sinus syndrome and refusal to have pacemaker placed. She is to follow-up with cardiology clinic for further management. Physical Exam Narrative: General: Patient is awake and alert. Head: Normocephalic. Atraumatic. EOM intact. Neck: No JVD. Cardiovascular: RRR. No gallops. No murmurs. No peripheral edema. Lungs: Clear to auscultation, no use of accessory muscles, no crackles or wheezes. Skin: No jaundice. No rashes. Abdomen: Normal bowel sounds, abdomen soft and nontender. Genito Urinary: Genital exam not performed since complaints not related. Rectal: Rectal exam not performed since no symptoms indicated blood loss. Extremities: No cyanosis or clubbing. Musculoskeletal: 5/5 strength, normal range of motion, no swollen or erythematous joints. Neurological: Moves all 4 extremities. No myoclonus. Discharge Data Studies Completed and Pending Completed Studies During Hospitalization Category Date Time Status TITLE CLOSER request for service Routine Exams 10/16/22 06:00 Completed XR chest 1V portable [id number] Stat Exams 10/12/22 15:36 Completed Pending at discharge Category Date Time Status C-arm FL for Pacemaker Routine Exams 10/18/22 08:00 Ordered Radiology Impressions Chest X-Ray 10/12/22 15:36 IMPRESSION: 1. Interval development of fullness in the pulmonary vasculature suggesting volume overload in the lungs. 2. Incidental/nonacute findings are listed in the report. Laboratory Results WBC 8.8 10^3/uL (4.0-10.0) 10/18/22 03: RBC 4.04 10^6/uL (4.1-5.3) L 10/18/22 03: Hgb 12.5 g/dL (11.5-15.3) 10/18/22 03: Hct 39.3 % (37.0-47.0) 10/18/22 03: MCV 97.3 fl (81-99) 10/18/22 03: MCH 30.9 pg (28.0-34.0) 10/18/22 03: MCHC 31.8 g/dL (30.0-36.0) 10/18/22 03: RDW 15.0 % (12.1-15.1) 10/18/22 03: Plt Count 200 10^3/cmm (130-400) 10/18/22 03: MPV 9.9 fL (7.4-10.4) 10/18/22 03: Neut % (Auto) 73.4 % 10/18/22 03: Lymph % (Auto) 14.6 % 10/18/22 03: Chase % (Auto) 9.8 % 10/18/22 03: Eos % (Auto) 1.1 % 10/18/22 03: Baso % (Auto) 0.5 % 10/18/22 03: Neut # (Auto) 6.46 10^3/uL (1.8-7.7) 10/18/22 03:23 Lymph # (Auto) 1.3 10^3/uL (0.8-4.8) 10/18/22 03:23 Chase # (Auto) 0.9 10^3/uL (0.2-0.9) 10/18/22 03:23 Eos # (Auto) 0.1 10^3/uL (0.0-0.8) 10/18/22 03:23 Baso # (Auto) 0.0 10^3/uL (0.0-0.1) 10/18/22 03:23 Nucleated RBC % (auto) 0 % 10/18/22 03: Nucleated RBCs # 0.0 /100WBC 10/18/22 03:23 Specimen Type Arterial 10/12/22 19:20 Sample Site Radial, right 10/12/22 19:20 ABG pH 7.32 (7.35-7.45) L 10/12/22 19:20 ABG pCO2 71.6 mmHg (35-45) H* 10/12/22 19:20 ABG pO2 44.3 mmHg (80.0-100.0) L 10/12/22 19:20 ABG HCO3 36.7 mmol/L (22-26) H 10/12/22 19:20 ABG Base Excess 7.9 mmol/L (-2.0-2.0) H 10/12/22 19:20 Eddie Test Pos 10/12/22 19:20 Hematocrit 40.0 % (37-47) 10/12/22 19:20 O2 Delivery Device Nc 10/12/22 19:20 O2 Liters/Min 3.0 % 10/12/22 19:20 FiO2 32.0 % 10/12/22 19:20 Bar Gauger And Lubricator Tender ID Droch 10/12/22 19:20 Sodium 142 mmol/L (136-145) 10/18/22 03:23 Potassium 4.4 mmol/L (3.5-5.1) 10/18/22 03:23 Chloride 103 mmol/L (98-107) 10/18/22 03:23 Carbon Dioxide 32 mmol/L (22-29) H 10/18/22 03:23 Anion Gap 11.4 (5-19) 10/18/22 03:23 BUN 25 mg/dL (8-23) H 10/18/22 03:23 Creatinine 1.0 mg/dL (0.5-0.9) H 10/18/22 03:23 GFR Calculation 55.8 mL/min (90-130) L 10/18/22 03:23 Glucose 127 mg/dL (65-115) H 10/18/22 03:23 Calculated Osmolality 300 mOsm/kg (285-295) H 10/18/22 03:23 Calcium 8.9 mg/dL (8.5-10.5) 10/18/22 03:23 Magnesium 2.0 mg/dL (1.7-2.3) 10/14/22 04:33 Total Bilirubin 0.5 mg/dL (0.15-1.2) 10/18/22 03: AST 14 U/L (0-32) 10/18/22 03: ALT 12 U/L (0-33) 10/18/22 03:23 Alkaline Phosphatase 74 U/L (35-105) 10/18/22 03:23 Troponin T Baseline 19 ng/L (0-10) H 10/13/22 14:01 Troponin T 120 Minute 18.72 ng/L (0-10) H 10/13/22 16:02 Delta Troponin T -0.28 ABS# (0-10) L 10/13/22 16:02 Troponin T Hi Sens 6Hr 14.65 ng/L (0-10) H 10/13/22 21:00 Troponin T Hi Sens 6Hr Delta -4.35 ng/L (0-12) L 10/13/22 21:00 NT-Pro-B Natriuret Pep 1000 pg/mL (0-125) H 10/12/22 18:25 Total Protein 7.0 g/dL (6.6-8.7) 10/18/22 03:23 Albumin 4.0 g/dL (3.5-5.2) 10/18/22 03:23 Globulin 3.0 g/dL (1.3-4.6) 10/18/22 03:23 Procalcitonin 0.06 ng/mL (0-0.5) 10/12/22 18:25 TSH 1.07 uIU/mL (0.27-4.20) 10/12/22 18:25 TSH Cancelled 10/12/22 18:25 Procedures Performed Heart catheterization Vitals Last Vital Signs Temp 98.2 F 10/18/22 08:25 Pulse 70 10/18/22 08:25 Resp 28 H 10/18/22 08:25 BP 141/81 10/18/22 08:25 Pulse Ox 100 10/18/22 08:25 O2 Del Method 10/18/22 08:00 O2 Flow Rate 3 10/18/22 08:25 FiO2 36 10/18/22 08:00 Discharge Plan Discharge Patient Disposition: Home Condition: Stable Prescriptions: New clopidogrel [Plavix] 75 mg tablet 75 mg PO DAILY Qty: 30 11RF Continued Eliquis 5 mg tablet 5 mg PO BID lisinopril 5 mg tablet 5 mg PO QAM aripiprazole [Abilify] 15 mg tablet 15 mg PO QAM sertraline 100 mg tablet 100 mg PO QAM atorvastatin 80 mg tablet 80 mg PO BEDTIME Odefsey 200-25-25 mg tablet 1 tab PO BEDTIME cetirizine 10 mg tablet 10 mg PO QAM nitroglycerin 0.4 mg tablet, sublingual 0.4 mg sublingual Q5M PRN (Reason: chest pain) fenofibrate nanocrystallized 145 mg tablet 145 mg PO QAM albuterol sulfate 90 mcg/actuation HFA aerosol inhaler 2 puff inhalation QID PRN (Reason: shortness of breath or wheezing) furosemide 40 mg tablet 40 mg PO DAILY Qty: 90 1RF hydrocodone-acetaminophen 5-325 mg tablet 1 tab PO .EVERY 4-6 HOURS MDD 3 tabs PRN (Reason: Pain) gabapentin 300 mg capsule 600 mg PO TID bupropion HCl 300 mg tablet extended release 24 hr 300 mg PO DAILY@12 fluticasone propionate 50 mcg/actuation spray,suspension 2 spray INTRANASAL DAILY zinc acetate 50 mg (zinc) Capsule 50 mg PO DAILY isosorbide mononitrate 60 mg tablet extended release 24 hr 60 mg PO QAM potassium chloride 8 mEq tablet extended release 16 meq PO BID [place] 3 Fish Oil 684-1,200 mg Capsule,Delayed Release(Dr/Ec) 1 cap PO DAILY Vitamin D3 100 mcg (4,000 unit) Capsule 8,000 unit PO QAM metformin 500 mg tablet 500 mg PO QAM Ocuvite Tablet 2 tab PO QAM Trelegy Ellipta 100-62.5-25 mcg blister with device 1 ea INHALATION DAILY Live Better Over 50 Multivit 1 tab PO DAILY Saw [place] 2 tab PO QAM Papaya Enzyme Tablet 1 tab PO DAILY Changed metoprolol succinate 50 mg tablet extended release 24 hr 25 mg PO DAILY Qty: 30 0RF Discontinued aspirin 325 mg Tablet 325 mg PO DAILY PRN (Reason: Chest Pain) levofloxacin 500 mg tablet 500 mg PO DAILY Rx Instructions: for 10 days (rx filled 10/03/22) celecoxib 100 mg capsule 100 mg PO BEDTIME Discharge Orders: Discharge Order (Routine); Ordered 10/18/22 Ordered By: Toribio Drummond Referrals: Alberta Archer MD [Physician] - 2 weeks Ayers,CECY Liu [Primary Care Provider] - 4-7 days Discharge Diet: Cardiac Discharge Activity: As per cardiac/pulm rehab instructions Patient Instructions: Coronary Angioplasty (DC), Opioid Safety, Post Pacemaker - Villarreal Activity Restrictions/Additional Instructions: 1. No strenuous activity for 3 weeks. 2. Take medications as prescribed. 3. Follow up with cardiology. 4. Follow up with primary care physician. Discharge Attestations Time Spent in Discharge Care*: greater than 30 min Quality Metrics Clinical Quality Measures [ No reported AMI, CVA or VTE this stay] Coding Level of Care Code Acute Chg FW DC note Diagnoses Atrial fibrillation with RVR I48.91 Accelerated hypertension I10 Diastolic heart failure I50.30 Atherosclerotic heart disease of [place] coronary artery with other forms of angina pectoris I25.118 Dyslipidemia E78.5 Benign essential HTN I10 Atherosclerotic heart disease of [place] coronary artery without angina pectoris I25.10 Peripheral edema R60.9 SOB (shortness of breath) R06.02
--- NOTE | 2022-10-18 11:02 | PM.PN ---
Subjective Subjective: Whit is 66 and was admitted on the eighth, now 6 days ago with chest pain, heart failure, respiratory failure and atrial fibrillation with a rapid ventricular response. Despite a negative sestamibi examination she continued to have chest pain. Ultimately she had coronary angiography 2 days ago and a second obtuse marginal stent was placed. Her heart rate has been difficult to control. She has been anticoagulated and on a beta-home. She also takes Brilinta. The decision was made by her caregivers to recommend permanent pacemaker placement in order to better control her heart rate with medications. She was visited by Dr. Villarreal yesterday and declined the placement of a pacemaker. Today she is in sinus rhythm with heart rates in the 60s and 70s. She remains on Eliquis, Brilinta and metoprolol. She is hoping to be discharged home today. She has a long list of other medical problems with previous intervention for coronary disease, COPD, hypertension, diastolic heart failure, atrial fibrillation, dyslipidemia, prior tobacco abuse and anticoagulation. Vitals/I&O/Wt Last Vital Signs Temp 98.2 F 10/18/22 08:25 Pulse 70 10/18/22 08:25 Resp 28 H 10/18/22 08:25 BP 141/81 10/18/22 08:25 Pulse Ox 100 10/18/22 08:25 O2 Del Method 10/18/22 08:00 O2 Flow Rate 3 10/18/22 08:25 FiO2 36 10/18/22 08:00 10/17/22 10/18/22 10/18/22 22:59 06:59 14:59 Intake Total 1119 811.434 / 2811.434 360 / 360 Balance 1119 811.434 / 2811.434 360 / 360 Physical Exam Narrative: GENERAL: In general she looks and feels well. HEENT: Exam within normal limits. NECK: Supple without jugular vein distention. The carotid upstroke is normal without bruits. BACK: Exam normal. LUNGS: Clear. HEART: Regular rate and rhythm. ABDOMEN: Benign without organomegaly or tenderness. EXTREMITIES: No edema. The right radial entry site is flat, dry without hematoma, bleeding or vascular anomaly. She has a good pulse. NEUROLOGIC: Exam normal. SKIN: Unremarkable. Data 10/18/22 03:23 10/18/22 03:23 A&P Assessment and plan (1) Accelerated hypertension: (2) Respiratory failure: Qualifiers: Chronicity: acute Respiratory failure complication: hypercapnia Qualified Code(s): J96.02 - Acute respiratory failure with hypercapnia (3) Diastolic heart failure: (4) Atrial fibrillation with RVR: (5) Atherosclerotic heart disease of [place] coronary artery with other forms of angina pectoris: (6) SOB (shortness of breath): (7) Dyslipidemia: (8) Benign essential HTN: (9) Atherosclerotic heart disease of [place] coronary artery without angina pectoris: Plan For now she has declined a pacemaker. She is stable. From my standpoint she could go home today. No activity restrictions. Attestations Medical Necessity Statement*: Hospitalization for respiratory failure, atrial fibrillation and coronary artery disease. Ready for discharge. Coding Level of Care Code Established Pt Acute Code for Chg Fwd Patient Type Established History Detailed Exam Detailed Medical Decision Making Moderate Complexity Diagnoses Accelerated hypertension I10 Respiratory failure J96.02 Chronicity: acute Respiratory failure complication: hypercapnia Diastolic heart failure I50.30 Atrial fibrillation with RVR I48.91 Atherosclerotic heart disease of [place] coronary artery with other forms of angina pectoris I25.118 SOB (shortness of breath) R06.02 Dyslipidemia E78.5 Benign essential HTN I10 Atherosclerotic heart disease of [place] coronary artery without angina pectoris I25.10
[2022-10-18 11:34] VITALS: BP 141/81; PULSE 70; RESP 28; TEMP 36.8; O2SAT 100
--- NOTE | 2022-10-18 13:30 | PC.NURSE ---
pt has decided not to have pacemaker placed, despite education in benefits and potential complications in not having one placed. discharge instructions given and explained.pt verb understanding of instructions.discussed plavix vs brilinta on discharge med list with dr malik.discharged via w/c to exit.
== END 2022-10-18 13:37 | disposition home or self-care (01) | DRG 246 ==
LOC: ER 18:57 → CSU 22:14
PROVIDERS: Family Medicine; Internal Medicine Cardiovascular Disease; Student in an Organized Health Care Education/Training Program; Admitting Provider Internal Medicine; Emergency Provider Emergency Medicine; PCP Nurse Practitioner Family; Visit Provider Internal Medicine
PROC: 027034Z Dilation of Coronary Artery, One Artery with Drug-eluting Intraluminal Device, Percutaneous Approach (ICD-10-PCS; principal; 2022-10-16 18:00)
DX: I21.4 Non-ST elevation (NSTEMI) myocardial infarction (principal); I50.33 Acute on chronic diastolic (congestive) heart failure; I13.0 Hypertensive heart and chronic kidney disease with heart failure and stage 1 through stage 4 chronic kidney disease, or unspecified chronic kidney disease; I48.91 Unspecified atrial fibrillation; N18.9 Chronic kidney disease, unspecified; I25.110 Atherosclerotic heart disease of native coronary artery with unstable angina pectoris; E78.5 Hyperlipidemia, unspecified; J44.9 Chronic obstructive pulmonary disease, unspecified; I49.5 Sick sinus syndrome; Z79.01 Long term (current) use of anticoagulants; Z79.51 Long term (current) use of inhaled steroids; Z79.891 Long term (current) use of opiate analgesic; Z79.84 Long term (current) use of oral hypoglycemic drugs; Z87.891 Personal history of nicotine dependence
CPT/HCPCS: 36415; 36600; 71045; 80048; 80053; 82803; 83735; 83880; 84145; 84443; 84484; 85025; 93005; 93458; 94640; 94660; 94664; 96372; 96374; 96375; 97161; 97530; 99152; 99153; 99284; 99285; C1769; C1874; C1887; C1894; C9600; J0282; J1170; J1265; J1644; J1650; J1940; J2250; J3010; J3490; J7030; J7060; J7613; Q9967

== ENCOUNTER 2022-10-24 10:02 | Emergency (ER) | payer MEDICARE, MEDICAID, SELFPAY ==
[2022-10-24] VITALS (9 sets, daily range): BP systolic 119–158; BP diastolic 77–95; PULSE 63–76; RESP 12–23; TEMP 36.7; O2SAT 91–96
--- NOTE | 2022-10-24 10:28 | ECG_ITS ---
[facility] Test Date: 2022-10-24 Pat Name: Katie Andrews Department: Room: Gender: Female Legislative Assistant: : 1955 Requested By: Toribio Boucher Order Number: [id number] Dunia MD: Gilbert Maldonado M.D. Measurements Intervals [place] Rate: 72 P: 41 WA: 130 QRS: 19 QRSD: 78 T: 61 QT: 385 QTc: 423 Interpretive Statements SINUS RHYTHM ANTEROSEPTAL MYOCARDIAL INFARCTION , OF INDETERMINATE AGE [40+ ms Q WAVE IN V1-V4] Compared to ECG 10/15/2022 08:32:04 No significant changes Electronically Signed On 10-24-2022 14:38:05 HYPO SPLASHER by Gilbert Maldonado M.D. [id number]
--- NOTE | 2022-10-24 10:29 | W.ED.BACK ---
Documented by User: SHAILESH Hood 10/25/22 11:31 HPI - Back Pain/Injury General: Chief Complaint: Back Pain/Injury Stated Complaint: High Blood Pressure, back pain, Right leg pain Time Seen by Provider: 10/24/22 10:20 History of Present Illness: Pt is a 66-year-old female comes to the ED with elevated blood pressure and chest pain. History of chronic lower back pain, coronary artery disease, COPD, atrial fibrillation on apixaban, and hypertension. She is on 3L oxygen at home. Patient was seen here in the ED back on October 12 for similar complaint and was admitted to the hospital. For the last 2 days she has been having elevated blood pressures at home with systolic number and around 200. Patient states she has been taking all of her medications as prescribed. Last night she started feeling some chest pain that radiated into both shoulders. Today she still having some bilateral shoulder pain but states that her chest pain has improved. She still feels some mild chest tightness. She is also complaining of acute on chronic lower back pain. She states she has been dealing with lower low back pain for years and sees pain management for that. She is on hydrocodone's for pain. The pain management clinic is supposed to be doing some injections in her lower back here in the next couple months. Associated symptoms: Deny abdominal pain, chills, dysuria, fatigue, fever(s), hematuria, nausea or vomiting Review of Systems Const: Denies: fever(s), chills or fatigue Eyes: Denies: change in vision or eye discomfort ENMT: Denies: throat pain, odynophagia, nasal discharge or nasal congestion Card: Reports: chest pain; Denies: palpitations, edema, swelling of feet/ankles, dyspnea on exertion or orthopnea Resp: Denies: dyspnea, productive cough or non-productive cough GI: Denies: abdominal pain, nausea, vomiting, diarrhea, constipation or hematochezia : Denies: flank pain, dysuria or hematuria Musc: Reports: back pain; Denies: neck pain or extremity swelling Skin/Breast: Denies: rash or new lesions Neuro: Denies: headache(s), numbness in extremities or weakness in extremities [facility] ED PFSH: Medical History CAD (coronary artery disease) COPD (chronic obstructive pulmonary disease) Hypertension Peripheral edema Surgical History History of PTCA Family History Father CAD (coronary artery disease), Onset Age: 46 [place] Cancer Dementia Diabetes Mother CAD (coronary artery disease), Onset Age: 82 Diabetes Denies family history of Clotting disorder Chronic kidney disease (CKD) Suicide Anesthesia complication Bleeding disorder Lung disease Stroke Social History Smoking and tobacco status: former smoker Alcohol intake: former Physical Exam Const: COMMON NORMALS: no acute distress, patient oriented x3 and alert GENERAL APPEARANCE: cooperative HENMT: COMMON NORMALS: normocephalic HEAD & SCALP: normocephalic MOUTH: Normal oral and palatal mucosa present THROAT: posterior oropharynx normal and uvula midline Neck/C-Spine: COMMON NORMALS: supple GENERAL: Yes normal visual inspection Resp: COMMON NORMALS: normal respiratory effort, No retractions, No use of accessory muscles and clear to auscultation bilaterally AUSCULTATION: clear to auscultation bilaterally Cardio: COMMON NORMALS: regular rate, regular rhythm, S1 normal heart sound present, S2 normal heart sound present, No gallops present (Cardio), No clicks present (Cardio), No murmurs present (Cardio) and Peripheral pulses 2+ throughout RATE: regular rate RHYTHM: regular rhythm HEART SOUNDS: S1 normal heart sound present and S2 normal heart sound present PERIPHERAL PULSES: Peripheral pulses 2+ throughout GI: COMMON NORMALS: Normal to inspection, nondistended, normoactive bowel sounds present, Soft to palpation, non-tender and no masses PALPATION: Yes Soft to palpation : COMMON NORMALS: Yes no CVA tenderness BLADDER/KIDNEY EXAM: Yes no CVA tenderness Back/Pelvis: COMMON NORMALS: no CVA tenderness Extremity: COMMON NORMALS: normal to inspection Neuro: COMMON NORMALS: patient oriented x3 SENSORIUM/ORIENTATION: Yes alert GAIT: Yes Normal gait present Skin: GENERAL SKIN EXAM: dry skin Course Vital Signs: Vital signs: Vital Signs Temperature 98.1 F 10/24/22 10:10 Pulse Rate 64 10/24/22 15:35 Respiratory Rate 16 10/24/22 15:35 Blood Pressure 145/95 10/24/22 15:35 Pulse Oximetry 91 10/24/22 15:35 Oxygen Delivery Me thod 10/24/22 14:52 Oxygen Flow Rate 4 10/24/22 14:52 MDM - Back Pain/Injury Medical Decision Making Pt is a 66-year-old female comes to the ED with elevated blood pressure and chest pain. History of chronic lower back pain, coronary artery disease, COPD, atrial fibrillation on apixaban, and hypertension. She is on 3l of oxygen at home. Patient was seen here in the ED back on October 12 for similar complaint and was admitted to the hospital. For the last 2 days she has been having elevated blood pressures at home with systolic number and around 200. Patient states she has been taking all of her medications as prescribed. Last night she started feeling some chest pain that radiated into both shoulders. Today she still having some bilateral shoulder pain but states that her chest pain has improved. She still feels some mild chest tightness. She is also complaining of acute on chronic lower back pain. Vitals are stable patient is on 3 L of oxygen via nasal cannula and her O2 saturation is 96%. Exam is benign. Labs are unremarkable. Troponins negative. BNP 944. Chest x-ray showed no acute findings. She was diagnosed with atypical chest pain and chronic lower back pain. She has a follow-up appointment with her rumper in a couple days on October 28. Told to return to ED if she has any worsening symptoms. Patient understood and agreed with plan. Labs I reviewed the patient's lab results. 10/24/22 10:41 10/24/22 11:13 Radiology Impressions Chest X-Ray 10/24/22 11:52 IMPRESSION: Suspect very mild fluid overload. Laboratory Results WBC 11.4 10^3/uL (4.0-10.0) H 10/24/22 10:41 RBC 4.48 10^6/uL (4.1-5.3) 10/24/22 10:41 Hgb 13.9 g/dL (11.5-15.3) 10/24/22 10:41 Hct 43.9 % (37.0-47.0) 10/24/22 10:41 MCV 98.0 fl (81-99) 10/24/22 10:41 MCH 31.0 pg (28.0-34.0) 10/24/22 10:41 MCHC 31.7 g/dL (30.0-36.0) 10/24/22 10:41 RDW 14.7 % (12.1-15.1) 10/24/22 10:41 Plt Count 304 10^3/cmm (130-400) 10/24/22 10:41 MPV 10.2 fL (7.4-10.4) 10/24/22 10:41 Neut % (Auto) 71.4 % 10/24/22 10:41 Lymph % (Auto) 16.8 % 10/24/22 10:41 [place] % (Auto) 8.8 % 10/24/22 10:41 Eos % (Auto) 1.5 % 10/24/22 10:41 Baso % (Auto) 0.4 % 10/24/22 10:41 Neut # (Auto) 8.14 10^3/uL (1.8-7.7) H 10/24/22 10:41 Lymph # (Auto) 1.9 10^3/uL (0.8-4.8) 10/24/22 10:41 [place] # (Auto) 1.0 10^3/uL (0.2-0.9) H 10/24/22 10:41 Eos # (Auto) 0.2 10^3/uL (0.0-0.8) 10/24/22 10:41 Baso # (Auto) 0.1 10^3/uL (0.0-0.1) 10/24/22 10:41 Nucleated RBC % (auto) 0 % 10/24/22 10:41 Nucleated RBCs # 0.0 /100WBC 10/24/22 10:41 Sodium 138 mmol/L (136-145) 10/24/22 11:13 Potassium 4.5 mmol/L (3.5-5.1) 10/24/22 11:13 Chloride 97 mmol/L (98-107) L 10/24/22 11:13 Carbon Dioxide 33 mmol/L (22-29) H 10/24/22 11:13 Anion Gap 12.5 (5-19) 10/24/22 11:13 BUN 17 mg/dL (8-23) 10/24/22 11:13 Creatinine 1.0 mg/dL (0.5-0.9) H 10/24/22 11:13 GFR Calculation 55.8 mL/min (90-130) L 10/24/22 11:13 Glucose 169 mg/dL (65-115) H 10/24/22 11:13 Calculated Osmolality 291 mOsm/kg (285-295) 10/24/22 11:13 Calcium 10.4 mg/dL (8.5-10.5) 10/24/22 11:13 Total Bilirubin 0.3 mg/dL (0.15-1.2) 10/24/22 11:13 AST 15 U/L (0-32) 10/24/22 11:13 ALT 14 U/L (0-33) 10/24/22 11:13 Alkaline Phosphatase 97 U/L (35-105) 10/24/22 11:13 Troponin T Baseline 21 ng/L (0-10) H 10/24/22 11:13 Troponin T 120 Minute 22.53 ng/L (0-10) H 10/24/22 13:37 Delta Troponin T 1.53 ABS# (0-10) 10/24/22 13:37 NT-Pro-B Natriuret Pep 944 pg/mL (0-125) H 10/24/22 11:13 Total Protein 7.9 g/dL (6.6-8.7) 10/24/22 11:13 Albumin 4.4 g/dL (3.5-5.2) 10/24/22 11:13 Globulin 3.5 g/dL (1.3-4.6) 10/24/22 11:13 Discharge Plan Discharge Patient Disposition: Home Clinical Impression: Atypical chest pain, Chronic lower back pain Condition: Stable Prescriptions: No Action Eliquis 5 mg tablet 5 mg PO BID aripiprazole [Abilify] 15 mg tablet 15 mg PO QAM sertraline 100 mg tablet 100 mg PO QAM atorvastatin 80 mg tablet 80 mg PO BEDTIME Odefsey 200-25-25 mg tablet 1 tab PO BEDTIME cetirizine 10 mg tablet 10 mg PO QAM nitroglycerin 0.4 mg tablet, sublingual 0.4 mg sublingual Q5M PRN (Reason: chest pain) albuterol sulfate 90 mcg/actuation HFA aerosol inhaler 2 puff inhalation QID PRN (Reason: shortness of breath or wheezing) hydrocodone-acetaminophen 5-325 mg tablet 1 tab PO .EVERY 4-6 HOURS MDD 3 tabs PRN (Reason: Pain) gabapentin 300 mg capsule 600 mg PO TID bupropion HCl 300 mg tablet extended release 24 hr 300 mg PO DAILY@15 fluticasone propionate 50 mcg/actuation spray,suspension 2 spray INTRANASAL DAILY zinc acetate 50 mg (zinc) Capsule 50 mg PO DAILY potassium chloride 8 mEq tablet extended release 16 meq PO BID cholecalciferol (vitamin D3) 100 mcg (4,000 unit) Capsule 8,000 unit PO QAM metformin 500 mg tablet 500 mg PO QAM Trelegy Ellipta 100-62.5-25 mcg blister with device 1 ea INHALATION DAILY Live Better Over 50 Multivit 1 tab PO DAILY [place] 2 tab PO QAM carica papaya [Papaya Enzyme] Tablet 1 tab PO DAILY metoprolol succinate 50 mg tablet extended release 24 hr 25 mg PO DAILY Qty: 30 0RF ondansetron HCl 4 mg tablet 4 mg PO Q4H PRN (Reason: Nausea And Vomiting) ginkgo biloba 40 mg Tablet 40 mg PO BID Rx Instructions: give with meal/snack furosemide 40 mg tablet 40 mg PO QAM Plavix 75 mg tablet 75 mg PO QAM isosorbide mononitrate 60 mg tablet extended release 24 hr 120 mg PO QAM Qty: 60 0RF lisinopril 5 mg tablet 10 mg PO QAM Qty: 60 0RF Discharge Orders: Discharge ED (Routine); Ordered 10/24/22 Ordered By: Toribio Boucher Referrals: Alexa Ayers APN [Primary Care Provider] - Discharge Diet: Regular Discharge Activity: Increase activity as tolerated Activity Restrictions/Additional Instructions: Follow-up with Dr. Archer at your scheduled appointment on October 28 or sooner if possible. Continue taking all home medications as previously prescribed. return to the ER or your medical provider if condition worsens. Please read and understand discharge instructions. Thank you for choosing [facility] for your healthcare needs today. Please realize this is an emergency room and that we are providing you with a medical screening exam and this may not be complete and all inclusive of all the testing and or work up that you may need to determine your ailment or severity of your illness. It is very important that you follow up as instructed or that you return to the Emergency Department should you have concerns or if your condition changes or worsens in any way. Coding Level of Care Code ED Special Weapons Unit Officer for Chg Fwd Exam Comprehensive Documented by User: Bean Royal MD 11/03/22 20:26 HPI - Back Pain/Injury General: Chief Complaint: Back Pain/Injury Stated Complaint: High Blood Pressure, back pain, Right leg pain Time Seen by Provider: 10/24/22 10:20 [facility] ED PFSH: Medical History CAD (coronary artery disease) COPD (chronic obstructive pulmonary disease) Hypertension Peripheral edema Surgical History History of PTCA Family History Father CAD (coronary artery disease), Onset Age: 46 [place] Cancer Dementia Diabetes Mother CAD (coronary artery disease), Onset Age: 82 Diabetes Denies family history of Clotting disorder Chronic kidney disease (CKD) Suicide Anesthesia complication Bleeding disorder Lung disease Stroke Social History Smoking and tobacco status: former smoker Alcohol intake: former Course Vital Signs: Vital signs: Vital Signs Temperature 98.1 F 10/24/22 10:10 Pulse Rate 64 10/24/22 15:35 Respiratory Rate 16 10/24/22 15:35 Blood Pressure 145/95 10/24/22 15:35 Pulse Oximetry 91 10/24/22 15:35 Oxygen Delivery Me thod 10/24/22 14:52 Oxygen Flow Rate 4 10/24/22 14:52 MDM - Back Pain/Injury Medical Decision Making Pt is a 66-year-old female comes to the ED with elevated blood pressure and chest pain. History of chronic lower back pain, coronary artery disease, COPD, atrial fibrillation on apixaban, and hypertension. She is on 3l of oxygen at home. Patient was seen here in the ED back on October 12 for similar complaint and was admitted to the hospital. For the last 2 days she has been having elevated blood pressures at home with systolic number and around 200. Patient states she has been taking all of her medications as prescribed. Last night she started feeling some chest pain that radiated into both shoulders. Today she still having some bilateral shoulder pain but states that her chest pain has improved. She still feels some mild chest tightness. She is also complaining of acute on chronic lower back pain. Vitals are stable patient is on 3 L of oxygen via nasal cannula and her O2 saturation is 96%. Exam is benign. Labs are unremarkable. Troponins negative. BNP 944. Chest x-ray showed no acute findings. She was diagnosed with atypical chest pain and chronic lower back pain. She has a follow-up appointment with her rumper in a couple days on October 28. Told to return to ED if she has any worsening symptoms. Patient understood and agreed with plan. I discussed this case with Toribio by a PA. I reviewed documentation, labs, imaging. Patient had a cardiac cath on 10/16/2022. Given laboratory studies and EKG compared to prior patient does not require inpatient management. Bean Royal MD Emergency Medicine Labs 10/24/22 10:41 10/24/22 11:13 Radiology Impressions Chest X-Ray 10/24/22 11:52 IMPRESSION: Suspect very mild fluid overload. Laboratory Results WBC 11.4 10^3/uL (4.0-10.0) H 10/24/22 10:41 RBC 4.48 10^6/uL (4.1-5.3) 10/24/22 10:41 Hgb 13.9 g/dL (11.5-15.3) 10/24/22 10:41 Hct 43.9 % (37.0-47.0) 10/24/22 10:41 MCV 98.0 fl (81-99) 10/24/22 10:41 MCH 31.0 pg (28.0-34.0) 10/24/22 10:41 MCHC 31.7 g/dL (30.0-36.0) 10/24/22 10:41 RDW 14.7 % (12.1-15.1) 10/24/22 10:41 Plt Count 304 10^3/cmm (130-400) 10/24/22 10:41 MPV 10.2 fL (7.4-10.4) 10/24/22 10:41 Neut % (Auto) 71.4 % 10/24/22 10:41 Lymph % (Auto) 16.8 % 10/24/22 10:41 [place] % (Auto) 8.8 % 10/24/22 10:41 Eos % (Auto) 1.5 % 10/24/22 10:41 Baso % (Auto) 0.4 % 10/24/22 10:41 Neut # (Auto) 8.14 10^3/uL (1.8-7.7) H 10/24/22 10:41 Lymph # (Auto) 1.9 10^3/uL (0.8-4.8) 10/24/22 10:41 [place] # (Auto) 1.0 10^3/uL (0.2-0.9) H 10/24/22 10:41 Eos # (Auto) 0.2 10^3/uL (0.0-0.8) 10/24/22 10:41 Baso # (Auto) 0.1 10^3/uL (0.0-0.1) 10/24/22 10:41 Nucleated RBC % (auto) 0 % 10/24/22 10:41 Nucleated RBCs # 0.0 /100WBC 10/24/22 10:41 Sodium 138 mmol/L (136-145) 10/24/22 11:13 Potassium 4.5 mmol/L (3.5-5.1) 10/24/22 11:13 Chloride 97 mmol/L (98-107) L 10/24/22 11:13 Carbon Dioxide 33 mmol/L (22-29) H 10/24/22 11:13 Anion Gap 12.5 (5-19) 10/24/22 11:13 BUN 17 mg/dL (8-23) 10/24/22 11:13 Creatinine 1.0 mg/dL (0.5-0.9) H 10/24/22 11:13 GFR Calculation 55.8 mL/min (90-130) L 10/24/22 11:13 Glucose 169 mg/dL (65-115) H 10/24/22 11:13 Calculated Osmolality 291 mOsm/kg (285-295) 10/24/22 11:13 Calcium 10.4 mg/dL (8.5-10.5) 10/24/22 11:13 Total Bilirubin 0.3 mg/dL (0.15-1.2) 10/24/22 11:13 AST 15 U/L (0-32) 10/24/22 11:13 ALT 14 U/L (0-33) 10/24/22 11:13 Alkaline Phosphatase 97 U/L (35-105) 10/24/22 11:13 Troponin T Baseline 21 ng/L (0-10) H 10/24/22 11:13 Troponin T 120 Minute 22.53 ng/L (0-10) H 10/24/22 13:37 Delta Troponin T 1.53 ABS# (0-10) 10/24/22 13:37 NT-Pro-B Natriuret Pep 944 pg/mL (0-125) H 10/24/22 11:13 Total Protein 7.9 g/dL (6.6-8.7) 10/24/22 11:13 Albumin 4.4 g/dL (3.5-5.2) 10/24/22 11:13 Globulin 3.5 g/dL (1.3-4.6) 10/24/22 11:13 Discharge Plan Discharge Patient Disposition: Home Clinical Impression: Atypical chest pain, Chronic lower back pain Condition: Stable Prescriptions: No Action Eliquis 5 mg tablet 5 mg PO BID aripiprazole [Abilify] 15 mg tablet 15 mg PO QAM sertraline 100 mg tablet 100 mg PO QAM atorvastatin 80 mg tablet 80 mg PO BEDTIME Odefsey 200-25-25 mg tablet 1 tab PO BEDTIME cetirizine 10 mg tablet 10 mg PO QAM nitroglycerin 0.4 mg tablet, sublingual 0.4 mg sublingual Q5M PRN (Reason: chest pain) albuterol sulfate 90 mcg/actuation HFA aerosol inhaler 2 puff inhalation QID PRN (Reason: shortness of breath or wheezing) hydrocodone-acetaminophen 5-325 mg tablet 1 tab PO .EVERY 4-6 HOURS MDD 3 tabs PRN (Reason: Pain) gabapentin 300 mg capsule 600 mg PO TID bupropion HCl 300 mg tablet extended release 24 hr 300 mg PO DAILY@15 fluticasone propionate 50 mcg/actuation spray,suspension 2 spray INTRANASAL DAILY zinc acetate 50 mg (zinc) Capsule 50 mg PO DAILY potassium chloride 8 mEq tablet extended release 16 meq PO BID cholecalciferol (vitamin D3) 100 mcg (4,000 unit) Capsule 8,000 unit PO QAM metformin 500 mg tablet 500 mg PO QAM Trelegy Ellipta 100-62.5-25 mcg blister with device 1 ea INHALATION DAILY Live Better Over 50 Multivit 1 tab PO DAILY [place] 2 tab PO QAM carica papaya [Papaya Enzyme] Tablet 1 tab PO DAILY metoprolol succinate 50 mg tablet extended release 24 hr 25 mg PO DAILY Qty: 30 0RF ondansetron HCl 4 mg tablet 4 mg PO Q4H PRN (Reason: Nausea And Vomiting) ginkgo biloba 40 mg Tablet 40 mg PO BID Rx Instructions: give with meal/snack furosemide 40 mg tablet 40 mg PO QAM Plavix 75 mg tablet 75 mg PO QAM isosorbide mononitrate 60 mg tablet extended release 24 hr 120 mg PO QAM Qty: 60 0RF lisinopril 5 mg tablet 10 mg PO QAM Qty: 60 0RF Discharge Orders: Discharge ED (Routine); Ordered 10/24/22 Ordered By: Toribio Boucher Referrals: Alexa Ayers APN [Primary Care Provider] - Discharge Diet: Regular Discharge Activity: Increase activity as tolerated Activity Restrictions/Additional Instructions: Follow-up with Dr. Archer at your scheduled appointment on October 28 or sooner if possible. Continue taking all home medications as previously prescribed. return to the ER or your medical provider if condition worsens. Please read and understand discharge instructions. Thank you for choosing [facility] for your healthcare needs today. Please realize this is an emergency room and that we are providing you with a medical screening exam and this may not be complete and all inclusive of all the testing and or work up that you may need to determine your ailment or severity of your illness. It is very important that you follow up as instructed or that you return to the Emergency Department should you have concerns or if your condition changes or worsens in any way. Coding Level of Care Code ED Special Weapons Unit Officer for Irena Hermosillo Exam Comprehensive
[2022-10-24] MEDS: morphine 4 mg/mL SDV 1 mL IVP ×2 (10:45→13:46)
[2022-10-24] MEDS: orphenadrine 30 mg/mL Inj 2 mL 60 MG IVP (10:45)
[2022-10-24 10:51] LABS: Basophils # 0.1 10^3/uL (0.0-0.1); Basophils % 0.4 %; Eosinophils # 0.2 10^3/uL (0.0-0.8); Eosinophils % 1.5 %; Hematocrit 43.9 % (37.0-47.0); Hemoglobin 13.9 g/dL (11.5-15.3); Lymphocytes # 1.9 10^3/uL (0.8-4.8); Lymphocytes % 16.8 %; Mean Corpuscular HGB Conc 31.7 g/dL (30.0-36.0); Mean Platelet Volume 10.2 fL (7.4-10.4); Monocytes % 8.8 %; Neutrophils # 8.14 10^3/uL (1.8-7.7); Neutrophils % 71.4 %; Nucleated Red Blood Cells % 0 %; Platelet Count 304 10^3/cmm (130-400); Red Blood Count 4.48 10^6/uL (4.1-5.3); Red Cell Distribution Width 14.7 % (12.1-15.1); White Blood Count 11.4 10^3/uL (4.0-10.0)
[2022-10-24 11:38] LABS: Troponin(5th) Baseline 21 ng/L (0-10)
[2022-10-24 11:45] LABS: Alanine Aminotransferase 14 U/L (0-33); Albumin Level 4.4 g/dL (3.5-5.2); Alkaline Phosphatase 97 U/L (35-105); Anion Gap 12.5 (5-19); Aspartate Amino Transferase 15 U/L (0-32); Blood Urea Nitrogen 17 mg/dL (8-23); Calcium 10.4 mg/dL (8.5-10.5); Carbon Dioxide 33 mmol/L (22-29); Chloride 97 mmol/L (98-107); Globulin 3.5 g/dL (1.3-4.6); Glomerular Filtration Rate 55.8 mL/min (90-130); Glucose 169 mg/dL (65-115); NT Pro B Type Natriuretic Pept 944 pg/mL (0-125); Osmolality Calculated 291 mOsm/kg (285-295); Potassium 4.5 mmol/L (3.5-5.1); Sodium 138 mmol/L (136-145); Total Bilirubin 0.3 mg/dL (0.15-1.2); Total Protein 7.9 g/dL (6.6-8.7)
--- NOTE | 2022-10-24 11:52 | XR_ITS ---
WS: [id number] PORTABLE CHEST HISTORY: Chest pain COMPARISON: 10/12/2022 Low lung volumes. Very mild fluid overload and interstitial prominence. No consolidations. No pleural effusion or pneum othorax. Cardiac size: Normal. Mediastinum/Aorta: Normal mediastinum. No osseous abnormality seen. XR/XR chest 1V portable [id number] IMPRESSION: Suspect very mild fluid overload.
--- NOTE | 2022-10-24 12:28 | ECG_ITS ---
[facility] Test Date: 2022-10-24 Pat Name: Katie Andrews Department: Room: Gender: Female Tank House Operator: : 1955 Requested By: Toribio Boucher Order Number: [id number] Dunia MD: Gilbert Maldonado M.D. Measurements Intervals [place] Rate: 64 P: 23 CO: 143 QRS: 17 QRSD: 70 T: 56 QT: 407 QTc: 420 Interpretive Statements SINUS RHYTHM ANTEROSEPTAL MYOCARDIAL INFARCTION , OF INDETERMINATE AGE [40+ ms Q WAVE IN V1-V4] Compared to ECG 10/24/2022 10:43:06 No significant changes Electronically Signed On 10-24-2022 14:40:58 SUPERVISOR PAYROLL by Gilbert Maldonado M.D. [email or web address] [facility]mer[facility]in[facility].[employer]store/[id number]
[2022-10-24 14:06] LABS: Troponin 5 2HR 22.53 ng/L (0-10)
[2022-10-24 14:18] LABS: Troponin 5 2HR Delta 1.53 ABS# (0-10)
[2022-10-24] MEDS: HYDROcodone-acetaminophen 7.5-325 mg Tablet 1 TAB PO (15:31)
== END 2022-10-24 15:36 | disposition home or self-care (01) ==
PROVIDERS: Emergency Provider Physician Assistant; PCP Nurse Practitioner Family
DX: R07.89 Other chest pain (principal); G89.29 Other chronic pain; M54.50 Low back pain, unspecified; Z79.01 Long term (current) use of anticoagulants; Z79.02 Long term (current) use of antithrombotics/antiplatelets; I25.10 Atherosclerotic heart disease of native coronary artery without angina pectoris; J44.9 Chronic obstructive pulmonary disease, unspecified; I10 Essential (primary) hypertension; Z87.891 Personal history of nicotine dependence
CPT/HCPCS: 36415; 71045; 80053; 83880; 84484; 85025; 93005; 96374; 96375; 96376; 99285; J2270; J2360

== ENCOUNTER 2022-10-28 08:15 | Emergency (ER) | payer MEDICARE, MEDICAID, SELFPAY ==
[2022-10-28] VITALS (22 sets, daily range): BP systolic 149–205; BP diastolic 85–114; PULSE 43–100; RESP 14–24; TEMP 36.7; O2SAT 89–97
--- NOTE | 2022-10-28 08:27 | ECG_ITS ---
[facility] Test Date: 2022-10-28 Pat Name: Katie Andrews Department: Room: Gender: Female Interactive Digital Media Specialist: : 1955 Requested By: Jeffy Dhaliwal Order Number: [id number] Dunia MD: Gilbert Maldonado M.D. Measurements Intervals [place] Rate: 66 P: 97 HI: 135 QRS: 73 QRSD: 72 T: 41 QT: 398 QTc: 418 Interpretive Statements SINUS RHYTHM LOW QRS VOLTAGE IN PRECORDIAL LEADS [QRS DEFLECTION < 1.0 mV IN CHEST LEADS] ANTEROSEPTAL MYOCARDIAL INFARCTION , OF INDETERMINATE AGE [40+ ms Q WAVE IN V1-V4] Compared to ECG 10/24/2022 12:41:46 Low QRS voltage now present Myocardial infarct finding still present Electronically Signed On 10-28-2022 14:52:11 CORE ANALYST by Gilbert Maldonado M.D. [email or web address]/[id number] f
--- NOTE | 2022-10-28 08:27 | XR_ITS ---
WS: [id number] Exam: XR chest 1V portable [id number] Date/Time of Exam: 10/28/2022 8:37 AM Reason For Exam: chest pain Comparison 10/24/2022. Lungs are clear and fully expanded. Heart size top limits normal. The mediastinum is normal in contou r. No pleural effusions. Regional bony elements appear normal. Monitoring leads superimpose the chest . XR/XR chest 1V portable [id number] IMPRESSION: 1. No acute cardia pulmonary finding.
[2022-10-28 08:45] LABS: Basophils % 0.4 %; Eosinophils # 0.1 10^3/uL (0.0-0.8); Eosinophils % 1.2 %; Hematocrit 39.3 % (37.0-47.0); Hemoglobin 12.3 g/dL (11.5-15.3); Lymphocytes # 1.6 10^3/uL (0.8-4.8); Lymphocytes % 14.9 %; Mean Corpuscular HGB Conc 31.3 g/dL (30.0-36.0); Mean Corpuscular Hemoglobin 30.5 pg (28.0-34.0); Mean Corpuscular Volume 97.5 fl (81-99); Mean Platelet Volume 9.8 fL (7.4-10.4); Monocytes # 0.9 10^3/uL (0.2-0.9); Monocytes % 8.4 %; Neutrophils # 7.72 10^3/uL (1.8-7.7); Neutrophils % 74.1 %; Nucleated Red Blood Cells % 0 %; Platelet Count 261 10^3/cmm (130-400); Red Blood Count 4.03 10^6/uL (4.1-5.3); Red Cell Distribution Width 14.8 % (12.1-15.1); White Blood Count 10.4 10^3/uL (4.0-10.0)
--- NOTE | 2022-10-28 08:54 | W.ED.CHESTPA ---
HPI - Chest Pain General: Chief Complaint: Chest Pain Stated Complaint: high bp, chest pain Time Seen by Provider: 10/28/22 08:22 Source: patient Mode of arrival: ambulatory History of Present Illness: 66-year-old female presents emergency room complaining of chest pain rating to her left shoulder and arm began yesterday at noon and has been continuous since she has not taken any nitro for it. She was at rest when it began. She was seen in the emergency room on October 12 with Dina toribio with [facility] and was being admitted for rate control she further decompensated in the emergency room had some respiratory acidosis and was placed on BiPAP. During that stay patient underwent coronary angiogram and had a single stent placed in obtuse marginal vessel the remainder of the angiogram was generally normal she is on apixaban and metoprolol during that stay they recommended a pacemaker placement but she declined. She states this is her second visit back to the emergency room since that hospitalization and previous 1 serial enzymes were negative and was thought to be more musculoskeletal and she was discharged home. She has not taken any nitroglycerin since that she had the onset of pain yesterday. She states other episodes she has had since the stent was placed she took nitro and it was relieved by that. She is currently on isosorbide mononitrate 60 mg daily. She also noted on arrival here to be hypertensive MD complaint: chest pain Pertinent past history: coronary artery disease Onset (ago): day(s) (1) Timing of current episode: episodic Prior episodes: Yes Onset: during rest Pain radiation: left arm and left shoulder Quality: aching Associated symptoms: Deny abdominal pain, dyspnea, fever(s), nausea, palpitations or vomiting Review of Systems Const: Denies: fever(s), chills, body aches, change in appetite, fatigue or malaise ENMT: Denies: throat pain, ear or mastoid pain, nasal discharge or nasal congestion Card: Reports: chest pain and irregular heart rhythm; Denies: palpitations, edema, dyspnea on exertion or orthopnea Resp: Denies: dyspnea, productive cough or non-productive cough GI: Denies: abdominal pain, nausea, vomiting, hematemesis, coffee ground emesis, diarrhea, constipation, bloating, hematochezia or melena : Denies: flank pain, difficulty voiding, dysuria, urinary frequency or urinary urgency Musc: Reports: back pain Skin/Breast: Denies: rash or pruritus PFSH ED PFSH: Medical History CAD (coronary artery disease) COPD (chronic obstructive pulmonary disease) Hypertension Peripheral edema Surgical History History of PTCA Family History Father CAD (coronary artery disease), Onset Age: 46 PA Cancer Dementia Diabetes Mother CAD (coronary artery disease), Onset Age: 82 Diabetes Denies family history of Clotting disorder Chronic kidney disease (CKD) Suicide Anesthesia complication Bleeding disorder Lung disease Stroke Social History Smoking and tobacco status: former smoker Alcohol intake: former Physical Exam Const: COMMON NORMALS: no acute distress GENERAL APPEARANCE: cooperative and comfortable ORIENTATION/CONSCIOUSNESS: Yes awake, Yes oriented to person, Yes oriented to place and Yes oriented to time HENMT: COMMON NORMALS: normocephalic, atraumatic and hearing grossly normal bilaterally HEAD & SCALP: normocephalic and atraumatic Eye: COMMON NORMALS: Equal, round and reactive pupils present, EOMs intact bilaterally, conjunctivae normal and no scleral icterus CONJUNCTIVA: Yes conjunctivae normal PUPIL: Yes Equal, round and reactive pupils present Neck/C-Spine: COMMON NORMALS: full ROM, no lymphadenopathy, supple and no JVD Lymph: LYMPHATIC: no lymphadenopathy noted and no lymphedema noted Resp: COMMON NORMALS: normal respiratory effort, No retractions, No use of accessory muscles and clear to auscultation bilaterally AUSCULTATION: clear to auscultation bilaterally Cardio: COMMON NORMALS: no JVD, regular rate, regular rhythm and No murmurs present (Cardio) RATE: regular rate RHYTHM: regular rhythm GI: COMMON NORMALS: Soft to palpation and No hepatosplenomegaly present AUSCULTATION: Yes normoactive bowel sounds PALPATION: Yes Soft to palpation, No Tenderness to palpation present (GI), No Guarding due to palpation present (GI) and Yes No hepatosplenomegaly present Extremity: COMMON NORMALS: normal to inspection, capillary refill normal, no clubbing, cyanosis or edema, no calf tenderness and no pedal edema Neuro: SENSORIUM/ORIENTATION: Yes oriented to person, Yes oriented to place and Yes oriented to time Skin: COMMON NORMALS: no rashes or lesions noted GENERAL SKIN EXAM: no rashes or lesions noted Course Vital Signs: Vital signs: Vital Signs Temperature 98.0 F 10/28/22 08:21 Pulse Rate 68 10/28/22 13:15 Respiratory Rate 22 H 10/28/22 13:15 Blood Pressure 164/85 10/28/22 12:31 Pulse Oximetry 96 10/28/22 13:15 Oxygen Delivery Me thod 10/28/22 08:42 MDM - Chest Pain Medical Decision Making Patient presents with chest pain EKG does not show any acute changes Kolm troponins normal. Patient recently had a cardiac catheterization that showed a single lesion that was intervened with a drug-eluting stent she is still taking her Brilinta. Discussed with cardiology they recommend increasing lisinopril and increasing her isosorbide mononitrate. Follow-up with cardiology return if further problems. Medical Records I reviewed the patient's medical records. Lab Data I reviewed the patient's lab results. 10/28/22 08:40 10/28/22 08:40 Radiology Impressions Chest X-Ray 10/28/22 08:27 IMPRESSION: 1. No acute cardia pulmonary finding. Laboratory Results WBC 10.4 10^3/uL (4.0-10.0) H 10/28/22 08:40 RBC 4.03 10^6/uL (4.1-5.3) L 10/28/22 08:40 Hgb 12.3 g/dL (11.5-15.3) 10/28/22 08:40 Hct 39.3 % (37.0-47.0) 10/28/22 08:40 MCV 97.5 fl (81-99) 10/28/22 08:40 MCH 30.5 pg (28.0-34.0) 10/28/22 08:40 MCHC 31.3 g/dL (30.0-36.0) 10/28/22 08:40 RDW 14.8 % (12.1-15.1) 10/28/22 08:40 Plt Count 261 10^3/cmm (130-400) 10/28/22 08:40 MPV 9.8 fL (7.4-10.4) 10/28/22 08:40 Neut % (Auto) 74.1 % 10/28/22 08:40 Lymph % (Auto) 14.9 % 10/28/22 08:40 Major % (Auto) 8.4 % 10/28/22 08:40 Eos % (Auto) 1.2 % 10/28/22 08:40 Baso % (Auto) 0.4 % 10/28/22 08:40 Neut # (Auto) 7.72 10^3/uL (1.8-7.7) H 10/28/22 08:40 Lymph # (Auto) 1.6 10^3/uL (0.8-4.8) 10/28/22 08:40 Major # (Auto) 0.9 10^3/uL (0.2-0.9) 10/28/22 08:40 Eos # (Auto) 0.1 10^3/uL (0.0-0.8) 10/28/22 08:40 Baso # (Auto) 0.0 10^3/uL (0.0-0.1) 10/28/22 08:40 Nucleated RBC % (auto) 0 % 10/28/22 08:40 Nucleated RBCs # 0.0 /100WBC 10/28/22 08:40 Sodium 142 mmol/L (136-145) 10/28/22 08:40 Potassium 4.1 mmol/L (3.5-5.1) 10/28/22 08:40 Chloride 102 mmol/L (98-107) 10/28/22 08:40 Carbon Dioxide 31 mmol/L (22-29) H 10/28/22 08:40 Anion Gap 13.1 (5-19) 10/28/22 08:40 BUN 16 mg/dL (8-23) 10/28/22 08:40 Creatinine 1.1 mg/dL (0.5-0.9) H 10/28/22 08:40 GFR Calculation 50.0 mL/min (90-130) L 10/28/22 08:40 Glucose 96 mg/dL (65-115) 10/28/22 08:40 Calculated Osmolality 295 mOsm/kg (285-295) 10/28/22 08:40 Calcium 9.7 mg/dL (8.5-10.5) 10/28/22 08:40 Total Bilirubin 0.2 mg/dL (0.15-1.2) 10/28/22 08:40 AST 18 U/L (0-32) 10/28/22 08:40 ALT 18 U/L (0-33) 10/28/22 08:40 Alkaline Phosphatase 91 U/L (35-105) 10/28/22 08:40 Troponin T Baseline 19 ng/L (0-10) H 10/28/22 08:40 Troponin T 120 Minute 18.14 ng/L (0-10) H 10/28/22 10:55 Delta Troponin T -0.86 ABS# (0-10) L 10/28/22 10:55 Total Protein 7.3 g/dL (6.6-8.7) 10/28/22 08:40 Albumin 4.4 g/dL (3.5-5.2) 10/28/22 08:40 Globulin 2.9 g/dL (1.3-4.6) 10/28/22 08:40 Discharge Plan Discharge Patient Disposition: Home Clinical Impression: Atypical chest pain, HTN (hypertension), A-fib, Bradycardia Condition: Stable Prescriptions: Changed isosorbide mononitrate 60 mg tablet extended release 24 hr 120 mg PO QAM Qty: 60 0RF lisinopril 5 mg tablet 10 mg PO QAM Qty: 60 0RF No Action Eliquis 5 mg tablet 5 mg PO BID aripiprazole [Abilify] 15 mg tablet 15 mg PO QAM sertraline 100 mg tablet 100 mg PO QAM atorvastatin 80 mg tablet 80 mg PO BEDTIME Odefsey 200-25-25 mg tablet 1 tab PO BEDTIME cetirizine 10 mg tablet 10 mg PO QAM nitroglycerin 0.4 mg tablet, sublingual 0.4 mg sublingual Q5M PRN (Reason: chest pain) albuterol sulfate 90 mcg/actuation HFA aerosol inhaler 2 puff inhalation QID PRN (Reason: shortness of breath or wheezing) hydrocodone-acetaminophen 5-325 mg tablet 1 tab PO .EVERY 4-6 HOURS MDD 3 tabs PRN (Reason: Pain) gabapentin 300 mg capsule 600 mg PO TID bupropion HCl 300 mg tablet extended release 24 hr 300 mg PO DAILY@15 fluticasone propionate 50 mcg/actuation spray,suspension 2 spray INTRANASAL DAILY zinc acetate 50 mg (zinc) Capsule 50 mg PO DAILY potassium chloride 8 mEq tablet extended release 16 meq PO BID cholecalciferol (vitamin D3) 100 mcg (4,000 unit) Capsule 8,000 unit PO QAM metformin 500 mg tablet 500 mg PO QAM Trelegy Ellipta 100-62.5-25 mcg blister with device 1 ea INHALATION DAILY Live Better Over 50 Multivit 1 tab PO DAILY Saw [place] 2 tab PO QAM carica papaya [Papaya Enzyme] Tablet 1 tab PO DAILY metoprolol succinate 50 mg tablet extended release 24 hr 25 mg PO DAILY Qty: 30 0RF ondansetron HCl 4 mg tablet 4 mg PO Q4H PRN (Reason: Nausea And Vomiting) ginkgo biloba 40 mg Tablet 40 mg PO BID Rx Instructions: give with meal/snack furosemide 40 mg tablet 40 mg PO QAM Plavix 75 mg tablet 75 mg PO QAM Discharge Orders: Discharge ED (Routine); Ordered 10/28/22 Ordered By: Jeffy Vogel Referrals: Alexa Ayers APN [Primary Care Provider] - Discharge Diet: Usual diet Discharge Activity: Resume usual activity Patient Instructions: Opioid Safety, Pain Management Activity Restrictions/Additional Instructions: You were seen today for complaints of chest pain your cardiac enzymes and EKGs are unremarkable. I discussed with the senior net application developer they recommend that we increase your lisinopril and your isosorbide mononitrate. Instructions are in the discharge packet. They recommend that you follow-up in their office within the next week to reevaluate your blood pressure. While you are in the emergency room your blood pressure was significantly elevated it did improve when you were given your regular medications. Coding Level of Care Code ED Crawler Tractor Operator for Irena Fwd Exam Comprehensive
[2022-10-28 09:02] LABS: Alanine Aminotransferase 18 U/L (0-33); Albumin Level 4.4 g/dL (3.5-5.2); Alkaline Phosphatase 91 U/L (35-105); Anion Gap 13.1 (5-19); Aspartate Amino Transferase 18 U/L (0-32); Blood Urea Nitrogen 16 mg/dL (8-23); Calcium 9.7 mg/dL (8.5-10.5); Carbon Dioxide 31 mmol/L (22-29); Chloride 102 mmol/L (98-107); Globulin 2.9 g/dL (1.3-4.6); Glucose 96 mg/dL (65-115); Osmolality Calculated 295 mOsm/kg (285-295); Potassium 4.1 mmol/L (3.5-5.1); Sodium 142 mmol/L (136-145); Total Bilirubin 0.2 mg/dL (0.15-1.2); Total Protein 7.3 g/dL (6.6-8.7); Troponin(5th) Baseline 19 ng/L (0-10)
[2022-10-28] MEDS: aspirin 81 mg Chew Tablet 324 MG PO (09:09)
[2022-10-28] MEDS: hyDRALAzine 20 mg/mL INJ 1 mL 10 MG IVP (09:10)
[2022-10-28] MEDS: nitroglycerin 1 gm/inch oint Pkt 1 INCH TOPICAL (09:11)
--- NOTE | 2022-10-28 09:15 | PC.NURSE ---
Patient told this nurse earlier that she had not taken her morning meds. This nurse then presented with her morning meds and she stated that she had indeed taken her morning meds. Meds were taken back to the [facility].
--- NOTE | 2022-10-28 10:06 | PC.PHAR ---
pt states she takes care of her own medications-pt states still taking the metoprolol er 25mg daily written on 10/18/22-ext med history shows rx filled on 10/27/22 10d.s for er 100mg qpm pt states not started taking the 100mg dose yet-pt states she is unsure if she is taking fenofibrate 145mg qam ext med history shows last filled 08/11/22 30d/s but states she takes lipitor-[facility] states no refills and refills request was denied for the fenofibrate in sep 2022-notes are made in the pharmacy comments
--- NOTE | 2022-10-28 10:38 | ECG_ITS ---
[facility] Test Date: 2022-10-28 Pat Name: Katie Andrews Department: Room: Gender: Female [employer] [place]: : 1955 Requested By: Jeffy Dhaliwal Order Number: [id number] Dunia MD: Gilbert Madlonado M.D. Measurements Intervals [place] Rate: 50 P: 17 CO: 138 QRS: 73 QRSD: 74 T: 26 QT: 423 QTc: 386 Interpretive Statements SINUS BRADYCARDIA WITH SINUS ARRHYTHMIA LOW QRS VOLTAGE IN PRECORDIAL LEADS [QRS DEFLECTION < 1.0 mV IN CHEST LEADS] ANTEROSEPTAL MYOCARDIAL INFARCTION , OF INDETERMINATE AGE [40+ ms Q WAVE IN V1-V4] Compared to ECG 10/28/2022 08:29:28 Sinus rhythm no longer present Myocardial infarct finding still present Electronically Signed On 10-28-2022 14:54:05 LEAD NEURODIAGNOSTIC TECHNOLOGIST by Gilbert Maldonado M.D. [id number]
[2022-10-28 11:18] LABS: Troponin 5 2HR 18.14 ng/L (0-10)
[2022-10-28 11:20] LABS: Troponin 5 2HR Delta -0.86 ABS# (0-10)
== END 2022-10-28 13:26 | disposition home or self-care (01) ==
PROVIDERS: Emergency Provider Family Medicine; PCP Nurse Practitioner Family
DX: R07.89 Other chest pain (principal); I10 Essential (primary) hypertension; I48.91 Unspecified atrial fibrillation; R00.1 Bradycardia, unspecified; Z79.01 Long term (current) use of anticoagulants; Z79.84 Long term (current) use of oral hypoglycemic drugs; Z79.02 Long term (current) use of antithrombotics/antiplatelets; Z87.891 Personal history of nicotine dependence; I25.10 Atherosclerotic heart disease of native coronary artery without angina pectoris; J44.9 Chronic obstructive pulmonary disease, unspecified
CPT/HCPCS: 71045; 80053; 84484; 85025; 93005; 96374; 99285; J0360

== ENCOUNTER 2022-12-25 15:43 | Inpatient (IN) | payer MEDICARE, MEDICAID, SELFPAY ==
[2022-12-25] VITALS (37 sets, daily range): BP systolic 135–169; BP diastolic 85–113; PULSE 61–73; RESP 13–26; TEMP 36.4–36.8; O2SAT 81–94; BMI 40.5
--- NOTE | 2022-12-25 16:03 | XRR_ITS ---
PROCEDURE INFORMATION: Exam: XR Chest Exam date and time: 12/25/2022 5:13 PM Age: 67 years old Clinical indication: Shortness of breath and other: Copd; Additional info: SOB TECHNIQUE: Imaging protocol: Radiologic exam of the chest. Views: 1 view. COMPARISON: CR XR chest 1V portable [id number] 10/28/2022 8:40 AM FINDINGS: Lungs: Minimal lingular atelectasis or infiltrate. Pleural spaces: Unremarkable. No pleural effusion. No pneumothorax. Heart/Mediastinum: Stable heart size. Bones/joints: Stable bones. XR/XR chest 1V portable [id number] IMPRESSION: Minimal lingular atelectasis or infiltrate. Correlate for infection.
--- NOTE | 2022-12-25 16:03 | CTR_ITS ---
PROCEDURE INFORMATION: Exam: CT Head Without Contrast Exam date and time: 12/25/2022 4:51 PM Age: 67 years old Clinical indication: Dizziness TECHNIQUE: Imaging protocol: Computed tomography of the head without contrast. Radiation optimization: All CT scans at this facility use at least one of these dose optimization techniques: automated exposure control; mA and/or kV adjustment per patient size (includes targeted exams where dose is matched to clinical indication); or iterative reconstruction. REPORTING DATA: Count of CT and Cardiac NM exams in prior 12 months: This patient has received 2 known CTs and 0 known cardiac nuclear medicine studies in the 12 months prior to the current study. COMPARISON: No relevant prior studies available. RADIATION DOSE METRICS: Total DLP (mGy-cm): 1119.24 FINDINGS: Brain: No acute infarct. No hemorrhage. Involutional changes of the brain, commensurate with age. No mass effect. Cerebral ventricles: No ventriculomegaly. Paranasal sinuses: Visualized sinuses are unremarkable. No fluid levels. Mastoid air cells: Visualized mastoid air cells are well aerated. Bones/joints: Unremarkable. No acute fracture. Soft tissues: Unremarkable. CT/CT head wo con* [id number] IMPRESSION: No acute intracranial abnormality.
--- NOTE | 2022-12-25 16:05 | ECG_ITS ---
[facility] Test Date: 2022-12-25 Pat Name: Katie Andrews Department: Room: Gender: Female Pullman Clerk: : 1955 Requested By: Gaston Zavala Order Number: [id number] Dunia MD: Alberta Archer M.D. Measurements Intervals [place] Rate: 73 P: 58 AL: 153 QRS: 41 QRSD: 79 T: 48 QT: 391 QTc: 433 Interpretive Statements SINUS RHYTHM Compared to ECG 10/28/2022 10:38:01 Sinus bradycardia no longer present Sinus arrhythmia no longer present Myocardial infarct finding no longer present Electronically Signed On 12-25-2022 22:52:20 CDT by Alberta Archer M.D. [id number]
--- NOTE | 2022-12-25 16:06 | W.ED.SYNCOPE ---
HPI - Syncope General: Chief Complaint: Syncope Stated Complaint: SYNCOPE Time Seen by Provider: 12/25/22 15:58 History of Present Illness: Patient comes in with dizziness. States she woke up this morning and was off balance and states that she had to hold onto things to get into the bathroom and take a shower. States she felt like her balance was off and that she was falling to the side. States she also has not felt very good for the last day or so with some generalized fatigue and has developed a headache today. Denies any one-sided numbness or weakness. States she also has some mild cough and mild shortness of breath. Associated symptoms: Deny abdominal pain, chest pain, fever(s), headache(s) or nausea Review of Systems Const: Denies: fever(s) or body aches Eyes: Denies: change in vision or blurry vision ENMT: Denies: throat pain or odynophagia Card: Denies: chest pain or palpitations Resp: Denies: dyspnea or productive cough GI: Denies: abdominal pain, nausea or vomiting : Denies: flank pain or dysuria Musc: Denies: neck pain or back pain Skin/Breast: Denies: rash or pruritus Neuro: Reports: dizziness; Denies: headache(s) or numbness in extremities Psych: Denies: anxiety or change in appetite Endo: Denies: polyuria or excessive sweating PFSH ED PFSH: Medical History CAD (coronary artery disease) COPD (chronic obstructive pulmonary disease) Hypertension Peripheral edema Surgical History History of PTCA Family History Father CAD (coronary artery disease), Onset Age: 46 [place] Cancer Dementia Diabetes Mother CAD (coronary artery disease), Onset Age: 82 Diabetes Denies family history of Clotting disorder Chronic kidney disease (CKD) Suicide Anesthesia complication Bleeding disorder Lung disease Stroke Social History Smoking and tobacco status: former smoker Alcohol intake: former Physical Exam Const: COMMON NORMALS: no acute distress, patient oriented x3 and healthy appearing OTHER: Patient is somnolent throughout exam but awakens easily to voice. HENMT: COMMON NORMALS: normocephalic and atraumatic HEAD & SCALP: normocephalic and atraumatic Eye: COMMON NORMALS: Equal, round and reactive pupils present and EOMs intact bilaterally PUPIL: Yes Equal, round and reactive pupils present Neck/C-Spine: COMMON NORMALS: full ROM and supple Resp: COMMON NORMALS: normal respiratory effort, No retractions and No use of accessory muscles OTHER: Expiratory wheezes in all lung cameron Cardio: COMMON NORMALS: regular rate and regular rhythm RATE: regular rate RHYTHM: regular rhythm GI: COMMON NORMALS: Normal to inspection, nondistended, normoactive bowel sounds present, Soft to palpation and non-tender PALPATION: Yes Soft to palpation Back/Pelvis: COMMON NORMALS: thoracic and lumbar spine normal to inspection and no thoracic nor lumbar tenderness Extremity: COMMON NORMALS: normal to inspection and full ROM Neuro: COMMON NORMALS: patient oriented x3 OTHER: Unsteady gait Psych: COMMON NORMALS: mental status grossly normal and cooperative Skin: COMMON NORMALS: no rashes or lesions noted and no wounds GENERAL SKIN EXAM: no rashes or lesions noted Course Vital Signs: Vital signs: Vital Signs Temperature 98.2 F 12/25/22 15:51 Pulse Rate 64 12/25/22 17:25 Respiratory Rate 17 12/25/22 17:25 Blood Pressure 152/104 12/25/22 17:25 Pulse Oximetry 92 12/25/22 17:25 Oxygen Delivery Me thod 12/25/22 17:25 Oxygen Flow Rate 3 12/25/22 16:20 Fraction of Inspir ed Oxygen 28 12/25/22 17:09 MDM - Syncope Medical Decision Making Sonny the casePatient comes in with dizziness. States she woke up this morning and was off balance and states that she had to hold onto things to get into the bathroom and take a shower. States she felt like her balance was off and that she was falling to the side. States she also has not felt very good for the last day or so with some generalized fatigue and has developed a headache today. Denies any one-sided numbness or weakness. States she also has some mild cough and mild shortness of breath. Will check labs, CT, give IV fluids, EKG, and reassess. On reassessment I talked to the patient about the test results. We placed her on BiPAP, and she is doing much better. To the hospitalist, and we will admit for further work-up and treatment. Lab Data 12/25/22 16:10 12/25/22 16:10 Radiology Impressions Chest X-Ray 12/25/22 16:03 IMPRESSION: Minimal lingular atelectasis or infiltrate. Correlate for infection. Head CT 12/25/22 16:03 IMPRESSION: No acute intracranial abnormality. Laboratory Results WBC 9.8 10^3/uL (4.0-10.0) 12/25/22 16:10 RBC 4.40 10^6/uL (4.1-5.3) 12/25/22 16:10 Hgb 13.5 g/dL (11.5-15.3) 12/25/22 16:10 Hct 44.1 % (37.0-47.0) 12/25/22 16:10 MCV 100.2 fl (81-99) H 12/25/22 16:10 MCH 30.7 pg (28.0-34.0) 12/25/22 16:10 MCHC 30.6 g/dL (30.0-36.0) 12/25/22 16:10 RDW 14.6 % (12.1-15.1) 12/25/22 16:10 Plt Count 216 10^3/cmm (130-400) 12/25/22 16:10 MPV 10.2 fL (7.4-10.4) 12/25/22 16:10 Neut % (Auto) 69.3 % 12/25/22 16:10 Lymph % (Auto) 17.3 % 12/25/22 16:10 [place] % (Auto) 11.0 % 12/25/22 16:10 Eos % (Auto) 1.2 % 12/25/22 16:10 Baso % (Auto) 0.4 % 12/25/22 16:10 Neut # (Auto) 6.78 10^3/uL (1.8-7.7) 12/25/22 16:10 Lymph # (Auto) 1.7 10^3/uL (0.8-4.8) 12/25/22 16:10 [place] # (Auto) 1.1 10^3/uL (0.2-0.9) H 12/25/22 16:10 Eos # (Auto) 0.1 10^3/uL (0.0-0.8) 12/25/22 16:10 Baso # (Auto) 0.0 10^3/uL (0.0-0.1) 12/25/22 16:10 Nucleated RBC % (auto) 0 % 12/25/22 16:10 Nucleated RBCs # 0.0 /100WBC 12/25/22 16:10 D-Dimer 0.72 ug/mIFEU (0-0.59) H 12/25/22 16:10 Specimen Type Arterial 12/25/22 16:18 Sample Site Brachial, left 12/25/22 16:18 ABG pH 7.25 (7.35-7.45) L 12/25/22 16:18 ABG pCO2 76.2 mmHg (35-45) H* 12/25/22 16:18 ABG pO2 70.2 mmHg (80.0-100.0) L 12/25/22 16:18 ABG HCO3 33.2 mmol/L (22-26) H 12/25/22 16:18 ABG Base Excess 3.4 mmol/L (-2.0-2.0) H 12/25/22 16:18 Eddie Test N/a 12/25/22 16:18 Hematocrit 42.1 % (37-47) 12/25/22 16:18 O2 Delivery Device Nc 12/25/22 16:18 O2 Liters/Min 3.0 % 12/25/22 16:18 Charge Loader ID Marin 12/25/22 16:18 Sodium 141 mmol/L (136-145) 12/25/22 16:10 Potassium 5.1 mmol/L (3.5-5.1) 12/25/22 16:10 Chloride 101 mmol/L (98-107) 12/25/22 16:10 Carbon Dioxide 31 mmol/L (22-29) H 12/25/22 16:10 Anion Gap 14.1 (5-19) 12/25/22 16:10 BUN 32 mg/dL (8-23) H 12/25/22 16:10 Creatinine 1.7 mg/dL (0.5-0.9) H 12/25/22 16:10 GFR Calculation 30.2 mL/min (90-130) L 12/25/22 16:10 Glucose 122 mg/dL (65-115) H 12/25/22 16:10 Calculated Osmolality 300 mOsm/kg (285-295) H 12/25/22 16:10 Calcium 9.7 mg/dL (8.5-10.5) 12/25/22 16:10 Magnesium 2.2 mg/dL (1.7-2.3) 12/25/22 16:10 Total Bilirubin 0.2 mg/dL (0.15-1.2) 12/25/22 16:10 AST 127 U/L (0-32) H 12/25/22 16:10 ALT 157 U/L (0-33) H 12/25/22 16:10 Alkaline Phosphatase 115 U/L (35-105) H 12/25/22 16:10 Troponin T Baseline 22 ng/L (0-10) H 12/25/22 16:10 Total Protein 6.4 g/dL (6.6-8.7) L 12/25/22 16:10 Albumin 4.0 g/dL (3.5-5.2) 12/25/22 16:10 Globulin 2.4 g/dL (1.3-4.6) 12/25/22 16:10 Ethyl Alcohol < 10 mg/dL (0-10) 12/25/22 16:47 Discharge Plan Discharge Patient Disposition: Placed in Observation Clinical Impression: Acute respiratory failure with hypoxia and hypercarbia Condition: Stable Prescriptions: No Action Eliquis 5 mg tablet 5 mg PO BID aripiprazole [Abilify] 15 mg tablet 15 mg PO QAM sertraline 100 mg tablet 100 mg PO QAM atorvastatin 80 mg tablet 80 mg PO BEDTIME Odefsey 200-25-25 mg tablet 1 tab PO BEDTIME cetirizine 10 mg tablet 10 mg PO QAM nitroglycerin 0.4 mg tablet, sublingual 0.4 mg sublingual Q5M PRN (Reason: chest pain) albuterol sulfate 90 mcg/actuation HFA aerosol inhaler 2 puff inhalation QID PRN (Reason: shortness of breath or wheezing) hydrocodone-acetaminophen 5-325 mg tablet 1 tab PO .EVERY 4-6 HOURS MDD 3 tabs PRN (Reason: Pain) gabapentin 300 mg capsule 600 mg PO TID bupropion HCl 300 mg tablet extended release 24 hr 300 mg PO DAILY@15 fluticasone propionate 50 mcg/actuation spray,suspension 2 spray INTRANASAL DAILY zinc acetate 50 mg (zinc) Capsule 50 mg PO DAILY potassium chloride 8 mEq tablet extended release 16 meq PO BID cholecalciferol (vitamin D3) 100 mcg (4,000 unit) Capsule 8,000 unit PO QAM metformin 500 mg tablet 500 mg PO QAM Trelegy Ellipta 100-62.5-25 mcg blister with device 1 ea INHALATION DAILY Live Better Over 50 Multivit 1 tab PO DAILY Saw [place] Berries 2 tab PO QAM carica papaya [Papaya Enzyme] Tablet 1 tab PO DAILY metoprolol succinate 50 mg tablet extended release 24 hr 25 mg PO DAILY Qty: 30 0RF ondansetron HCl 4 mg tablet 4 mg PO Q4H PRN (Reason: Nausea And Vomiting) ginkgo biloba 40 mg Tablet 40 mg PO BID Rx Instructions: give with meal/snack furosemide 40 mg tablet 40 mg PO QAM Plavix 75 mg tablet 75 mg PO QAM isosorbide mononitrate 60 mg tablet extended release 24 hr 120 mg PO QAM Qty: 60 0RF lisinopril 5 mg tablet 10 mg PO QAM Qty: 60 0RF Referrals: Armen,CECY Liu [Primary Care Provider] - Coding Level of Care Code ED Superintendent Communications for Irena Hermosillo
[2022-12-25] MEDS: sodium chloride 0.9% 500 ML IV (16:12)
[2022-12-25 16:27] LABS: Basophils % 0.4 %; Eosinophils # 0.1 10^3/uL (0.0-0.8); Eosinophils % 1.2 %; Hematocrit 44.1 % (37.0-47.0); Hemoglobin 13.5 g/dL (11.5-15.3); Lymphocytes # 1.7 10^3/uL (0.8-4.8); Lymphocytes % 17.3 %; Mean Corpuscular HGB Conc 30.6 g/dL (30.0-36.0); Mean Corpuscular Hemoglobin 30.7 pg (28.0-34.0); Mean Corpuscular Volume 100.2 fl (81-99); Mean Platelet Volume 10.2 fL (7.4-10.4); Monocytes # 1.1 10^3/uL (0.2-0.9); Neutrophils # 6.78 10^3/uL (1.8-7.7); Neutrophils % 69.3 %; Nucleated Red Blood Cells % 0 %; Platelet Count 216 10^3/cmm (130-400); Red Cell Distribution Width 14.6 % (12.1-15.1); White Blood Count 9.8 10^3/uL (4.0-10.0)
[2022-12-25 16:30] LABS: ABG PH Result 7.25 (7.35-7.45); Arterial Blood Gas Hematocrit 42.1 % (37-47); Base Excess ABG 3.4 mmol/L (-2.0-2.0); Blood Gas Sample Site Brachial, left; Blood Gas Sample Type Arterial; HCO3 ABG 33.2 mmol/L (22-26); Oxygen Device NC; PO2 ABG 70.2 mmHg (80.0-100.0)
[2022-12-25 16:47] LABS: D Dimer 0.72 ug/mIFEU (0-0.59)
[2022-12-25 16:55] LABS: Troponin(5th) Baseline 22 ng/L (0-10)
[2022-12-25 16:57] LABS: Alanine Aminotransferase 157 U/L (0-33); Alkaline Phosphatase 115 U/L (35-105); Anion Gap 14.1 (5-19); Aspartate Amino Transferase 127 U/L (0-32); Blood Urea Nitrogen 32 mg/dL (8-23); Calcium 9.7 mg/dL (8.5-10.5); Carbon Dioxide 31 mmol/L (22-29); Chloride 101 mmol/L (98-107); Globulin 2.4 g/dL (1.3-4.6); Glomerular Filtration Rate 30.2 mL/min (90-130); Glucose 122 mg/dL (65-115); Magnesium 2.2 mg/dL (1.7-2.3); Osmolality Calculated 300 mOsm/kg (285-295); Potassium 5.1 mmol/L (3.5-5.1); Sodium 141 mmol/L (136-145); Total Bilirubin 0.2 mg/dL (0.15-1.2); Total Protein 6.4 g/dL (6.6-8.7)
[2022-12-25] MEDS: ipratropium-albuterol 3 mL Neb INHALATION ×3 (17:09→20:54)
[2022-12-25 17:18] LABS: ABG PCO2 76.2 mmHg (35-45)
[2022-12-25 17:31] LABS: Alcohol Level < 10 mg/dL (0-10)
--- NOTE | 2022-12-25 18:08 | ECG_ITS ---
[facility] Test Date: 2022-12-25 Pat Name: Katie Andrews Department: Room: Gender: Female Director Vaccine: : 1955 Requested By: Gaston Zavala Order Number: [id number] Dunia MD: Alberta Archer M.D. Measurements Intervals [place] Rate: 63 P: 50 GA: 147 QRS: 21 QRSD: 84 T: 50 QT: 417 QTc: 429 Interpretive Statements SINUS RHYTHM LOW QRS VOLTAGE IN PRECORDIAL LEADS [QRS DEFLECTION < 1.0 mV IN CHEST LEADS] Poor R wave progression Compared to ECG 12/25/2022 16:22:46 Low QRS voltage now present Electronically Signed On 12-26-2022 23:09:32 CDT by Alberta Archer M.D. [email or web address] [email or web address].Food Reporter/store/[id number]
--- NOTE | 2022-12-25 18:09 | CTR_ITS ---
PROCEDURE INFORMATION: Exam: CT Abdomen And Pelvis Without Contrast Exam date and time: 12/25/2022 7:24 PM Age: 67 years old Clinical indication: Abdominal tenderness; Additional info: Axel , transaminitis, evaluate hydronpehrosis , biliary obstrcution TECHNIQUE: Imaging protocol: Computed tomography of the abdomen and pelvis without contrast. Radiation optimization: All CT scans at this facility use at least one of these dose optimization techniques: automated exposure control; mA and/or kV adjustment per patient size (includes targeted exams where dose is matched to clinical indication); or iterative reconstruction. REPORTING DATA: Count of CT and Cardiac NM exams in prior 12 months: This patient has received 3 known CTs and 0 known cardiac nuclear medicine studies in the 12 months prior to the current study. COMPARISON: CT lumbar spine wo con* [id number] 07/29/2022 9:39 AM RADIATION DOSE METRICS: Total DLP (mGy-cm): 1127.16 FINDINGS: Lungs: Atelectasis in the lung bases. Coronary arteries: Coronary artery calcifications. Liver: Normal. No mass. Gallbladder and bile ducts: The gallbladder is partially contracted with suspected gallstones. Gallbladder wall thickening and edema. Mild pericholecystic fluid. The bile ducts are normal. Pancreas: Normal. No ductal dilation. Spleen: Normal. No splenomegaly. Adrenal glands: Normal. No mass. Kidneys and ureters: 1 mm right and 2 mm left nonobstructing renal calculi. Dystrophic calcification in the posterior left kidney with a chronic cortical defect. No ureteral calculus or hydronephrosis. Hypodensity in the anterior left kidney is too small to characterize but is most likely a cortical cyst. No follow-up imaging is recommended. Stomach and bowel: Duodenal diverticulum. Diverticulosis of the colon. No diverticulitis. The stomach is decompressed. The small bowel is unremarkable. No wall thickening or obstruction. Appendix: The appendix is visualized and is normal. Intraperitoneal space: Mild pelvic ascites. No free peritoneal air. Vasculature: Unremarkable. No abdominal aortic aneurysm. Lymph nodes: Unremarkable. No enlarged lymph nodes. Urinary bladder: Unremarkable as visualized. Reproductive: Unremarkable as visualized. Bones/joints: Degenerative changes of the spine. No acute fracture. Soft tissues: Tiny fat containing umbilical hernia. Mild subcutaneous soft tissue edema in the hip, lumbar, and flank regions. CT/CT abdomen pelvis wo con [id number] IMPRESSION: 1. Small nonobstructing renal calculi. No ureteral calculus or hydronephrosis. 2. Findings suspicious for acute versus chronic cholecystitis with wall edema and pericholecystic stranding. Follow-up with ultrasound recommended. COMMENTS: Consistent with the [employer]'s Incidental Findings Committee white paper (J Am Chiara Radiol 2018): Any incidental renal lesion less than 1 cm or classified as too small to characterize, or any incidental cystic renal lesion characterized as simple-appearing, is likely benign. No follow-up imaging is recommended for these lesions per consensus recommendations based on imaging criteria.
--- NOTE | 2022-12-25 18:19 | P.HP_ITS ---
Providers/Chief Complaint Admitting Physician: Sary Zavala MD Primary Care Provider: Alexa Ayers APN Chief Complaint: SYNCOPE History of Present Illness Katie Andrews is a 67 year old female with a history of coronary artery disease, COPD, atrial fibrillation on apixaban, and hypertension recent admission on 10/18 for ?acute on chronic diastolic heart failure with preserved ejection fraction, unstable angina and atrial fibrillation with rapid ventricular rate with sick sinus syndrome.?She underwent cardiac catheterization with revealing a high-grade lesion in the obtuse marginal branch of the circumflex artery for which she underwent PCI.? Hospital course was complicated by further atrial fibrillation with rapid ventricular rate for which she received metoprolol with subsequent bradycardia and sinus pauses consistent with sick sinus syndrome.? Patient was advised to have pacemaker placed which she refused.? She presents today with c/o shortness of breath, feeling off balance. No motor deficits. ABG shows hypercapnea. Review of Systems General: Reports: 10 or more systems reviewed and unremarkable except in HPI and below Const: Denies: fever(s), chills or body aches Eyes: Denies: change in vision, blurry vision or photophobia ENMT: Reports: hoarseness; Denies: throat pain, enlarged tonsils, odynophagia or nasal congestion Card: Denies: chest pain, palpitations, irregular heart rhythm, edema, swelling of feet/ankles, lightheadedness, pre-syncope, dyspnea on exertion or orthopnea Resp: Denies: dyspnea, productive cough, non-productive cough, wheezing, stridor, pain on inspiration, change in phlegm color, hemoptysis or chest congestion GI: Denies: abdominal pain, nausea, vomiting, hematemesis, coffee ground emesis, dysphagia, heartburn, diarrhea, constipation, GI cramping, change in sto ol character, hematochezia or melena : Denies: flank pain, difficulty voiding, dysuria, urinary frequency, urinary urgency, urinary hesitancy or hematuria Musc: Denies: neck pain, back pain, extremity pain, joint swelling, joint warmth or deformity Neuro: Denies: headache(s), numbness in extremities, weakness in extremities, sensory changes, difficulty walking, frequent falls, dizziness, vertigo, behavioral changes, Slurred speech present or seizure-like activity Psych: Denies: anxiety, depression, suicidal ideation or homicidal ideation Endo: Denies: polyuria, polydipsia, tired all the time, cold intolerance or hot flashes Mynor/Lymph: Denies: easy bruising or easy bleeding Medications/Allergies Home Medications Medication Instructions Recorded Confirmed Last Taken Type albuterol sulfate 90 mcg/actuation 2 puff inhalation QID PRN 05/26/22 10/28/22 Unknown History aerosol inhaler shortness of breath or wheezing apixaban 5 mg tablet (Eliquis) 5 mg PO BID 05/26/22 10/28/22 10/28/22 History aripiprazole 15 mg tablet (Abilify) 15 mg PO QAM 05/26/22 10/28/22 10/28/22 History atorvastatin 80 mg tablet 80 mg PO BEDTIME 05/26/22 10/28/22 10/27/22 History cetirizine 10 mg tablet 10 mg PO QAM 05/26/22 10/28/22 10/28/22 History emtricitabine 200 mg-rilpivirine 1 tab PO BEDTIME 05/26/22 10/28/22 10/27/22 History 25 mg-tenofovir alafenam 25 mg tablet (Natalia) nitroglycerin 0.4 mg sublingual 0.4 mg sublingual Q5M PRN chest 05/26/22 10/28/22 Unknown History tablet pain sertraline 100 mg tablet 100 mg PO QAM 05/26/22 10/28/22 10/28/22 History Live Better Over 50 Multivit 1 tab PO DAILY 10/13/22 10/28/22 Unknown History Saw [place] Berries 2 tab PO QAM 10/13/22 10/28/22 10/28/22 History bupropion HCl 300 mg 24 hr tablet, 300 mg PO DAILY@15 10/13/22 10/28/22 10/27/22 History extended release carica papaya (Papaya Enzyme 1 tab PO DAILY 10/13/22 10/28/22 Unknown History tablet) cholecalciferol (vitamin D3) 100 8,000 unit PO QAM 10/13/22 10/28/22 10/28/22 History mcg (4,000 unit) capsule fluticasone fur. 100 mcg-umeclid 1 ea inhalation DAILY 10/13/22 10/28/22 Unknown History 62.5 mcg-vilant 25 mcg inhalat.powder (Trelegy Ellipta) fluticasone propionate 50 2 spray intranasal DAILY 10/13/22 10/28/22 Unknown History mcg/actuation nasal spray,suspension gabapentin 300 mg capsule 600 mg PO TID 10/13/22 10/28/22 10/28/22 History hydrocodone 5 mg-acetaminophen 325 1 tab PO .EVERY 4-6 HOURS PRN Pain 10/13/22 10/28/22 Unknown History mg tablet metformin 500 mg tablet 500 mg PO QAM 10/13/22 10/28/22 10/28/22 History potassium chloride 8 mEq 16 meq PO BID 10/13/22 10/28/22 10/28/22 History tablet,extended release zinc acetate 50 mg (zinc) capsule 50 mg PO DAILY 10/13/22 10/28/22 Unknown History metoprolol succinate 50 mg 25 mg PO DAILY #30 tabs 10/18/22 10/28/22 10/28/22 Rx tablet,extended release 24 hr see pharmacy comment clopidogrel 75 mg tablet (Plavix) 75 mg PO QAM 10/28/22 10/28/22 10/28/22 Hi story furosemide 40 mg tablet 40 mg PO QAM 10/28/22 10/28/22 10/28/22 History ginkgo biloba 40 mg tablet 40 mg PO BID 10/28/22 10/28/22 Unknown History isosorbide mononitrate 60 mg 120 mg PO QAM #60 tabs 10/28/22 10/28/22 10/28/22 Rx tablet,extended release 24 hr lisinopril 5 mg tablet 10 mg PO QAM #60 tabs 10/28/22 10/28/22 10/28/22 Rx ondansetron HCl 4 mg tablet 4 mg PO Q4H PRN Nausea And Vomiting 10/28/22 10/28/22 Unknown History Allergies Allergy/AdvReac Type Severity Reaction Status Date / Time bee venom protein (honey bee) Allergy ALGY-Difficulty Verified 12/25/22 16:05 Breathing PFSH Acute PFSH: Medical History CAD (coronary artery disease) COPD (chronic obstructive pulmonary disease) Hypertension Peripheral edema Surgical History History of PTCA Family History Father CAD (coronary artery disease), Onset Age: 46 [place] Cancer Dementia Diabetes Mother CAD (coronary artery disease), Onset Age: 82 Diabetes Denies family history of Clotting disorder Chronic kidney disease (CKD) Suicide Anesthesia complication Bleeding disorder Lung disease Stroke Social History Smoking and tobacco status: former smoker Alcohol intake: former Vitals/I&O/Wt Last Vital Signs Temp 98.2 F 12/25/22 15:51 Pulse 64 12/25/22 17:25 Resp 17 12/25/22 17:25 BP 152/104 12/25/22 17:25 Pulse Ox 92 12/25/22 17:25 O2 Del Method 12/25/22 17:25 O2 Flow Rate 3 12/25/22 16:20 FiO2 28 12/25/22 17:09 12/25/22 12/25/22 12/25/22 06:59 14:59 22:59 Intake Total 500 / 500 Balance 500 / 500 Weight last 48 hrs Weight 107.048 kg Physical Exam Narrative: General: No acute distress, AO x3 HEENT: PERRLA, pupils bilaterally equal and reactive, pallors not present Chest: Normal vesicular breath sounds, no added sounds, equal good air entry bilaterally CVS: S1-S2 regular, no murmurs, no tachycardia, no gallops, no rubs Abdomen: Soft, nontender, no organomegaly, bowel sounds present Neuro: No focal deficits, no facial deformity, AO x3, power 5/5 in all limbs Data 12/25/22 16:10 12/25/22 16:10 A&P Assessment and plan (1) Acute respiratory failure with hypoxia and hypercarbia: Multifactorial related to COPD exacerbation and diastolic CHF exacerbation. (2) Diastolic heart failure: Lasix 40 g IV now Monitor urine output and creatinine. Check BNP (3) COPD exacerbation: Scheduled DuoNebs and budesonide insulation She has received 1 dose of steroids. Continue methylprednisone 40 mg IV every 12 hours BiPAP ventilation for hypercapnia Check ABG with a.m. labs (4) JOSE (acute kidney injury): cr at 1.[address] KUB urine lytes (5) Transaminitis: check CT abd for liver, biliary obstruction Plan recent h/o PCI: Continue Eliquis and Plavix A fib: currently rate controlled DVT ppx: eliquis Full code Attestations Medical Necessity Statement*: >2 midnight admission anticipated for above defined care Coding Level of Care Code Acute Code for Chg Fwd Diagnoses Acute respiratory failure with hypoxia and hypercarbia J96.01; J96.02 Diastolic heart failure I50.30 COPD exacerbation J44.1 JOSE (acute kidney injury) N17.9 Transaminitis R74.01
[2022-12-25] MEDS: FUROsemide 10 mg/mL SDV 4mL 40 MG IVP (18:40)
[2022-12-25 19:13] LABS: Troponin 5 2HR 17.72 ng/L (0-10)
[2022-12-25 19:15] LABS: Troponin 5 2HR Delta -4.28 ABS# (0-10)
[2022-12-25 19:54] LABS: NT Pro B Type Natriuretic Pept 1551 pg/mL (0-125)
[2022-12-25] MEDS: budesonide 0.5 mg/2 mL Neb INHALATION (20:54)
--- NOTE | 2022-12-25 21:40 | ECG_ITS ---
[facility] Test Date: 2022-12-25 Pat Name: Katie Andrews Department: Room: 264 Gender: Female Clinical Supervisor: : 1955 Requested By: Gaston Zavala Order Number: [id number] Dunia MD: Alberta Archer M.D. Measurements Intervals [place] Rate: 73 P: 53 NH: 143 QRS: 12 QRSD: 80 T: 31 QT: 392 QTc: 433 Interpretive Statements SINUS RHYTHM SEPTAL MYOCARDIAL INFARCTION , OF INDETERMINATE AGE [40+ ms Q WAVE IN V1/V2] Compared to ECG 12/25/2022 18:08:53 Myocardial infarct finding now present Electronically Signed On 12-26-2022 23:12:13 CDT by Alberta Archer M.D. [id number]
[2022-12-25 22:10] LABS: Bilirubin Urine Neg (Negative); Blood Urine Neg (Negative); Glucose Urine UA Norm (Normal); Ketones Urine Negative (Negative); Leukocyte Esterase Urine Negative (Negative); Nitrate Urine Negative (Negative); Protein Urine 1+ (Negative); Urine Appearance Clear (CLEAR); Urine Color Yellow (Yellow); Urobilinogen Urine Norm (Negative); pH Urine 5 (5-7)
[2022-12-25 22:11] LABS: Add Urine Microscopic? YES
[2022-12-25 22:12] LABS: Bacteria Urine TRACE /hpf; Hyaline Casts Urine 0-4 /lpf; RBC Urine 0-4 /hpf (0-2); Squamous Epithelial Cell Urine 0-4 /hpf (0-5); WBC Urine 0-4 /hpf (0-5)
[2022-12-25] MEDS: atorvastatin 40 mg Tablet PO (22:28)
[2022-12-25] MEDS: metoprolol tartrate 25 mg Tablet 12.5 MG PO (22:28)
[2022-12-25] MEDS: insulin lispro 100 unit/1 mL SUBCUT (22:35)
[2022-12-25 23:06] LABS: Glucose Point of Care 238 mg/dL (70-110)
[2022-12-26] VITALS (15 sets, daily range): BP systolic 123–169; BP diastolic 68–102; PULSE 61–73; RESP 13–19; TEMP 36.4–36.7; O2SAT 90–96
--- NOTE | 2022-12-26 00:29 | PC.PHAR ---
Renal dosing for Levaquin 750 mg daily changed to every other day based on patients CRCL <50 Thank you, Alycia Hernadez [facility]
[2022-12-26] MEDS: ipratropium-albuterol 3 mL Neb INHALATION ×4 (03:05→20:31)
[2022-12-26] MEDS: sertraline 100 mg Tablet PO (05:27)
[2022-12-26] MEDS: isosorbide mononitrate ER 60 mg Tablet 120 MG PO (05:27)
[2022-12-26] MEDS: ARIPiprazole 10 mg Tablet 15 MG PO (05:27)
[2022-12-26] MEDS: clopidogrel 75 mg Tablet PO (05:28)
[2022-12-26 05:36] LABS: Basophils % 0.3 %; Hematocrit 43.4 % (37.0-47.0); Hemoglobin 13.5 g/dL (11.5-15.3); Lymphocytes # 0.6 10^3/uL (0.8-4.8); Lymphocytes % 5.9 %; Mean Corpuscular HGB Conc 31.1 g/dL (30.0-36.0); Mean Corpuscular Volume 99.8 fl (81-99); Mean Platelet Volume 10.4 fL (7.4-10.4); Monocytes # 0.1 10^3/uL (0.2-0.9); Monocytes % 0.9 %; Neutrophils # 8.68 10^3/uL (1.8-7.7); Neutrophils % 90.3 %; Nucleated Red Blood Cells % 0 %; Platelet Count 186 10^3/cmm (130-400); Red Blood Count 4.35 10^6/uL (4.1-5.3); Red Cell Distribution Width 14.4 % (12.1-15.1); White Blood Count 9.6 10^3/uL (4.0-10.0)
[2022-12-26 05:47] LABS: Alanine Aminotransferase 129 U/L (0-33); Albumin Level 3.8 g/dL (3.5-5.2); Alkaline Phosphatase 122 U/L (35-105); Anion Gap 15.2 (5-19); Aspartate Amino Transferase 63 U/L (0-32); Blood Urea Nitrogen 30 mg/dL (8-23); Calcium 9.2 mg/dL (8.5-10.5); Carbon Dioxide 31 mmol/L (22-29); Chloride 100 mmol/L (98-107); Globulin 3.1 g/dL (1.3-4.6); Glomerular Filtration Rate 45.1 mL/min (90-130); Glucose 219 mg/dL (65-115); Osmolality Calculated 307 mOsm/kg (285-295); Potassium 4.2 mmol/L (3.5-5.1); Sodium 142 mmol/L (136-145); Total Bilirubin 0.4 mg/dL (0.15-1.2); Total Protein 6.9 g/dL (6.6-8.7)
[2022-12-26 05:51] LABS: Creatinine Clr Calc Pharmacy 55.8102
[2022-12-26 05:54] LABS: Troponin 5 6HR 11.59 ng/L (0-10)
[2022-12-26 05:57] LABS: Troponin 5 6HR Delta -6.13 ng/L (0-12)
[2022-12-26 06:18] LABS: Glucose Point of Care 228 mg/dL (70-110)
[2022-12-26] MEDS: HYDROcodone-acetaminophen 5-325 mg Tablet 1 TAB PO ×2 (07:50→15:15)
[2022-12-26] MEDS: budesonide 0.5 mg/2 mL Neb INHALATION ×2 (08:03→20:31)
[2022-12-26] MEDS: apixaban 5 mg Tablet PO ×2 (08:49→18:37)
[2022-12-26] MEDS: metoprolol tartrate 25 mg Tablet 12.5 MG PO (08:50)
[2022-12-26] MEDS: insulin lispro 100 unit/1 mL SUBCUT ×4 (08:50→22:08)
[2022-12-26] MEDS: levoFLOXacin 750 mg Tablet PO (08:50)
--- NOTE | 2022-12-26 09:52 | ECG_ITS ---
[facility] Test Date: 2022-12-26 Pat Name: Katie Andrews Department: Room: 264 Gender: Female Stone Rigger: : 1955 Requested By: Sary Zavala Order Number: [id number] Dunia MD: Alberta Archer M.D. Measurements Intervals [place] Rate: 66 P: 55 CO: 148 QRS: 32 QRSD: 78 T: 27 QT: 408 QTc: 431 Interpretive Statements SINUS RHYTHM SEPTAL MYOCARDIAL INFARCTION , OF INDETERMINATE AGE [40+ ms Q WAVE IN V1/V2] Compared to ECG 12/25/2022 21:40:26 No significant changes Electronically Signed On 12-26-2022 23:14:32 CDT by Alberta Archer M.D. [id number]
[2022-12-26 11:55] LABS: Glucose Point of Care 293 mg/dL (70-110)
--- NOTE | 2022-12-26 13:39 | PC.PHAR ---
Pharmacy renal dosing policy: (PolicyStat ID: [id number]) Ordered Drug/Dose/Freq: Levaquin 750 every other day Adjustment: q24h Current CrCl in mL/min: was 39 now 55, drug adjusts at 50
[2022-12-26] MEDS: buPROPion XL (24 HR) 300 mg Tablet PO (15:16)
[2022-12-26 17:26] LABS: Glucose Point of Care 277 mg/dL (70-110)
--- NOTE | 2022-12-26 19:17 | PM.PN ---
Subjective Subjective: c/o left shoulder pain today. Troponin series without significant delta, feels like breathing is better today. Vitals/I&O/Wt Last Vital Signs Temp 97.8 F 12/26/22 16:00 Pulse 73 12/26/22 16:00 Resp 18 12/26/22 16:00 BP 136/68 12/26/22 16:00 Pulse Ox 91 12/26/22 16:00 O2 Del Method 12/26/22 13:06 O2 Flow Rate 3 12/26/22 13:06 FiO2 35 12/26/22 03:11 12/26/22 12/26/22 12/26/22 06:59 14:59 22:59 Intake Total 800 / 1800 930 / 930 360 / 1290 Output Total 2000 / 2300 Balance -1200 / -500 930 / 930 360 / 1290 Weight last 48 hrs Weight 107.048 kg Physical Exam Narrative: General: No acute distress, AO x3 HEENT: PERRLA, pupils bilaterally equal and reactive, pallors not present Chest: Normal vesicular breath sounds, no added sounds, equal good air entry bilaterally CVS: S1-S2 regular, no murmurs, no tachycardia, no gallops, no rubs Abdomen: Soft, nontender, no organomegaly, bowel sounds present Neuro: No focal deficits, no facial deformity, AO x3, power 5/5 in all limbs Data 12/26/22 05:10 12/26/22 05:10 A&P Assessment and plan (1) Acute respiratory failure with hypoxia and hypercarbia: Multifactorial related to COPD exacerbation and diastolic CHF exacerbation. (2) Diastolic heart failure: Lasix 40 g IV now Monitor urine output and creatinine. Check BNP (3) COPD exacerbation: Scheduled DuoNebs and budesonide inhalation She has received 1 dose of steroids. Continue methylprednisone 40 mg IV every 12 hours BiPAP ventilation for hypercapnia Check ABG with a.m. labs (4) JOSE (acute kidney injury): cr at 1.[address] KUB urine lytes (5) Transaminitis: check CT abd for liver, biliary obstruction Plan recent h/o PCI: Continue Eliquis and Plavix A fib: currently rate controlled DVT ppx: eliquis Full code Plan for today: reduce steroids to once daily, lasix 40 iv today, optimize pain control, RUQ us to evaluate for acute cholecystitis, negative arreola's sign Attestations Medical Necessity Statement*: jann US, ricardo today, optimize pain control Coding Level of Care Code Acute Code for Chg Fwd Diagnoses Acute respiratory failure with hypoxia and hypercarbia J96.01; J96.02 Diastolic heart failure I50.30 COPD exacerbation J44.1 JOSE (acute kidney injury) N17.9 Transaminitis R74.01
--- NOTE | 2022-12-26 19:22 | USR_ITS ---
PROCEDURE INFORMATION: Exam: US Abdomen, Limited; Right Upper Quadrant Exam date and time: 12/26/2022 9:20 PM Age: 67 years old Clinical indication: Condition or disease; Gallbladder condition; Cholecystitis; Acute; Additional info: Acute cholecytsitis, patient ate at 1730 will scan at 2200 TECHNIQUE: Imaging protocol: Real time ultrasound of the abdomen with image documentation. Limited exam focused on the right upper quadrant. COMPARISON: CT abdomen pelvis con [id number] 12/25/2022 7:24 PM FINDINGS: Limitations: Study terminated early at the patient's request. Evaluation is incomplete. Liver: Liver is enlarged measuring 20 cm in length. Abnormally increased hepatic echogenicity, consistent with hepatic steatosis. 3.7 x 2.7 x 2.6 cm slightly hyperechoic lesion in the left lobe of the liver, which may represent hepatic hemangioma. Gallbladder: The gallbladder contains biliary sludge and shadowing gallstones. Gallbladder wall is thickened. Negative sonographic Juan's sign reported. Biliary ducts: Not included in the evaluation. See above. Pancreas: The pancreas is normal in appearance. No pancreatic duct dilatation. Right kidney: Right kidney measures 12.4 cm in length. Right kidney is unremarkable. Aorta: Abdominal aorta is unremarkable as demonstrated. Inferior vena cava: The intrahepatic portion of the inferior vena cava is unremarkable. US/US liver [id number] IMPRESSION: 1. Study terminated early at the patient's request. Evaluation is incomplete. 2. The gallbladder contains biliary sludge and shadowing gallstones. Gallbladder wall is thickened. Negative sonographic Juan's sign reported. 3. Liver is enlarged measuring 20 cm in length. Abnormally increased hepatic echogenicity, consistent with hepatic steatosis. 4. 3.7 x 2.7 x 2.6 cm slightly hyperechoic lesion in the left lobe of the liver, which may represent hepatic hemangioma. This lesion is not well demonstrated on previous noncontrast CT of 12/25/2022. Consider nonemergent follow-up MRI liver to characterize this mass.
[2022-12-26] MEDS: piperacillin-tazobactam 3.375 GM in sodium chloride 0.9% (plus) 50 ML IV (20:38)
[2022-12-26 21:22] LABS: Glucose Point of Care 302 mg/dL (70-110)
[2022-12-26] MEDS: gabapentin 300 mg Capsule 600 MG PO (22:07)
[2022-12-27] VITALS (10 sets, daily range): BP systolic 119–166; BP diastolic 73–95; PULSE 62–77; RESP 14–19; TEMP 36.4–36.6; O2SAT 93–96
[2022-12-27] MEDS: ipratropium-albuterol 3 mL Neb INHALATION (02:00)
[2022-12-27] MEDS: piperacillin-tazobactam 3.375 GM in sodium chloride 0.9% (plus) 50 ML IV ×2 (05:22→12:18)
[2022-12-27] MEDS: ARIPiprazole 10 mg Tablet 15 MG PO (05:22)
[2022-12-27] MEDS: clopidogrel 75 mg Tablet PO (05:23)
[2022-12-27] MEDS: isosorbide mononitrate ER 30 mg Tablet PO ×2 (05:23→08:38)
[2022-12-27] MEDS: sertraline 100 mg Tablet PO (05:23)
[2022-12-27] MEDS: morphine 4 mg/mL SDV 1 mL 2 MG IVP (05:41)
[2022-12-27 06:14] LABS: Glucose Point of Care 141 mg/dL (70-110)
[2022-12-27] MEDS: HYDROcodone-acetaminophen 5-325 mg Tablet 1 TAB PO ×2 (08:36→14:32)
[2022-12-27] MEDS: apixaban 5 mg Tablet PO (08:36)
[2022-12-27] MEDS: gabapentin 300 mg Capsule 600 MG PO ×2 (08:37→14:32)
[2022-12-27] MEDS: insulin lispro 100 unit/1 mL SUBCUT ×3 (08:38→17:16)
[2022-12-27] MEDS: metoprolol tartrate 25 mg Tablet 12.5 MG PO (10:42)
[2022-12-27] MEDS: lidocaine 5% Patch 1 PATCH TOPICAL (10:52)
[2022-12-27 12:26] LABS: Glucose Point of Care 279 mg/dL (70-110)
[2022-12-27] MEDS: buPROPion XL (24 HR) 300 mg Tablet PO (14:32)
[2022-12-27] MEDS: FUROsemide 10 mg/mL SDV 4mL 40 MG IVP (16:09)
--- NOTE | 2022-12-27 16:30 | P.TS_ITS ---
Transfer Summary Providers Date of Admission: 12/25/22 18:10 Date of Discharge/Transfer: 12/27/22 Attending Provider at Admission: Sary Zavala MD Attending Provider at Transfer: Sary Zavala MD Primary Care Provider: Alexa Ayers APN Transfer Plans: Anticipated date of transfer: 12/27/22 . Diagnoses at Discharge Discharge Diagnosis (1) Acute respiratory failure with hypoxia and hypercarbia: Status: Acute (2) Diastolic heart failure: Status: Acute (3) COPD exacerbation: Status: Acute (4) JOSE (acute kidney injury): Status: Acute (5) Transaminitis: Status: Acute Reason for Visit Reason for Visit [facility] Hospital Course Hospital Course Katie Andrews is a 67 year old female with a history of coronary artery disease, COPD, atrial fibrillation on apixaban, and hypertension recent admission on 10/18 for ?acute on chronic diastolic heart failure with preserved ejection fraction, unstable angina and atrial fibrillation with rapid ventricular rate with sick sinus syndrome.?She underwent cardiac catheterization with revealing a high-grade lesion in the obtuse marginal branch of the circumflex artery for which she underwent PCI.? Hospital course was complicated by further atrial fibrillation with rapid ventricular rate for which she received metoprolol with subsequent bradycardia and sinus pauses consistent with sick sinus syndrome.? Patient was advised to have pacemaker placed which she refused.? She presents currently on December 25, 2022 with chief complaints of shortness of breath, feeling off balance without any focal motor deficits. Her ABG was suggestive of acute hypercapnic hypoxic respiratory failure which is thought to be multifactorial related to COPD exacerbation and acute on chronic CHF. Initial ABG upon arrival was 7.25/76.2/70.2/33.2. She has remained on BiPAP at nighttime and as needed during the day. Her respiratory status has improved. Patient is alert awake oriented. She has been on scheduled nebulization with DuoNeb budesonide and has also received IV methylprednisolone and IV Lasix. With the above interventions her breathing has stabilized. She is currently awake alert and oriented. . Troponin series with mildly elevated troponin in the 20s range without significant delta. Overall less concerning for ACS. during the course of her evaluation she was noted to have elevated liver enzymes, AST 127, ALT 157, alkaline phosphatase 122, normal T. bili. She had an JOSE upon presentation with creatinine at 1.7, this has improved to 1.2. CT of the abdomen and pelvis was performed in view of the rising liver enzymes and also because of complaints of weak epigastric abdominal pain. CT showed findings suspicious for acute versus chronic cholecystitis with gallbladder wall edema and pericholecystic stranding. Ultrasound of the liver was additionally performed which showed gallbladder biliary sludge and shadowing gallstones. Gallbladder wall was thickened. Negative sonographic Juan sign was reported. Of note patient is on opiates at baseline. There was incidentally noted to be a 3.7 x 2.7 x 2.6 cm hepatic hemangioma. Patient has been made n.p.o. today with these findings. Given the concern for acute cholecystitis surgical evaluation is warranted at this time. Unfortunately we do not have general surgery services available at the hospital until December 30, therefore transfer is being sought to a different hospital. [facility] is the closest next facility with general surgery support. Patient is being transferred in a stable condition. Recommend to continue BiPAP ventilation at nighttime and as needed. Of note she has had sleep studies in the past and has been recommended to wear a CPAP, however she does not have a machine at home. Likely that obesity hypoventilation syndrome. Her respiratory symptoms are also contributed by OBESITY HYPOVENTILATION SYNDROME. Physical Exam Narrative: General: No acute distress, AO x3 morbidly obese lady in no acute distress. HEENT: PERRLA, pupils bilaterally equal and reactive, pallors not present Chest: Normal vesicular breath sounds, no added sounds, equal good air entry bilaterally CVS: S1-S2 regular, no murmurs, no tachycardia, no gallops, no rubs Abdomen: Soft, nontender, no organomegaly, bowel sounds present Neuro: No focal deficits, no facial deformity, AO x3, power 5/5 in all limbs TS Data Studies Completed and Pending Labs from last 24 hours 12/27/22 12/27/22 12/26/22 12:01 06:11 21:18 POC Glucose 279 H 141 H 302 H 12/26/22 16:42 POC Glucose 277 H Completed Studies During Hospitalization Category Date Time Status CT abdomen pelvis wo con [id number] Stat Cat Scan 12/25/22 18:[address] head wo con* [id number] Stat Cat Scan 12/25/22 16:03 Completed XR chest 1V portable [id number] Stat Exams 12/25/22 16:03 Completed US liver [id number] Routine Ultrasound 12/26/22 19:22 Completed Laboratory Last Values WBC 9.6 10^3/uL (4.0-10.0) 12/26/22 05:10 RBC 4.35 10^6/uL (4.1-5.3) 12/26/22 05:10 Hgb 13.5 g/dL (11.5-15.3) 12/26/22 05:10 Hct 43.4 % (37.0-47.0) 12/26/22 05:10 MCV 99.8 fl (81-99) H 12/26/22 05:10 MCH 31.0 pg (28.0-34.0) 12/26/22 05:10 MCHC 31.1 g/dL (30.0-36.0) 12/26/22 05:10 RDW 14.4 % (12.1-15.1) 12/26/22 05:10 Plt Count 186 10^3/cmm (130-400) 12/26/22 05:10 MPV 10.4 fL (7.4-10.4) 12/26/22 05:10 Neut % (Auto) 90.3 % 12/26/22 05:10 Lymph % (Auto) 5.9 % 12/26/22 05:10 [place] % (Auto) 0.9 % 12/26/22 05:10 Eos % (Auto) 0.0 % 12/26/22 05:10 Baso % (Auto) 0.3 % 12/26/22 05:10 Neut # (Auto) 8.68 10^3/uL (1.8-7.7) H 12/26/22 05:10 Lymph # (Auto) 0.6 10^3/uL (0.8-4.8) L 12/26/22 05:10 [place] # (Auto) 0.1 10^3/uL (0.2-0.9) L 12/26/22 05:10 Eos # (Auto) 0.0 10^3/uL (0.0-0.8) 12/26/22 05:10 Baso # (Auto) 0.0 10^3/uL (0.0-0.1) 12/26/22 05:10 Nucleated RBC % (auto) 0 % 12/26/22 05:10 Nucleated RBCs # 0.0 /100WBC 12/26/22 05:10 D-Dimer 0.72 ug/mIFEU (0-0.59) H 12/25/22 16:10 Specimen Type Arterial 12/25/22 16:18 Sample Site Brachial, left 12/25/22 16:18 ABG pH 7.25 (7.35-7.45) L 12/25/22 16:18 ABG pCO2 76.2 mmHg (35-45) H* 12/25/22 16:18 ABG pO2 70.2 mmHg (80.0-100.0) L 12/25/22 16:18 ABG HCO3 33.2 mmol/L (22-26) H 12/25/22 16:18 ABG Base Excess 3.4 mmol/L (-2.0-2.0) H 12/25/22 16:18 Eddie Test N/a 12/25/22 16:18 Hematocrit 42.1 % (37-47) 12/25/22 16:18 O2 Delivery Device Nc 12/25/22 16:18 O2 Liters/Min 3.0 % 12/25/22 16:18 Scratcher ID [place] 12/25/22 16:18 Sodium 142 mmol/L (136-145) 12/26/22 05:10 Potassium 4.2 mmol/L (3.5-5.1) 12/26/22 05:10 Chloride 100 mmol/L (98-107) 12/26/22 05:10 Carbon Dioxide 31 mmol/L (22-29) H 12/26/22 05:10 Anion Gap 15.2 (5-19) 12/26/22 05:10 BUN 30 mg/dL (8-23) H 12/26/22 05:10 Creatinine 1.2 mg/dL (0.5-0.9) H 12/26/22 05:10 GFR Calculation 45.1 mL/min (90-130) L 12/26/22 05:10 Glucose 219 mg/dL (65-115) H 12/26/22 05:10 POC Glucose 279 mg/dL (70-110) H 12/27/22 12:01 Calculated Osmolality 307 mOsm/kg (285-295) H 12/26/22 05:10 Calcium 9.2 mg/dL (8.5-10.5) 12/26/22 05:10 Magnesium 2.0 mg/dL (1.7-2.3) 12/26/22 05:10 Total Bilirubin 0.4 mg/dL (0.15-1.2) 12/26/22 05:10 AST 63 U/L (0-32) H 12/26/22 05:10 ALT 129 U/L (0-33) H 12/26/22 05:10 Alkaline Phosphatase 122 U/L (35-105) H 12/26/22 05:10 Troponin T Baseline 22 ng/L (0-10) H 12/25/22 16:10 Troponin T 120 Minute 17.72 ng/L (0-10) H 12/25/22 18:39 Delta Troponin T -4.28 ABS# (0-10) L 12/25/22 18:39 Troponin T Hi Sens 6Hr 11.59 ng/L (0-10) H 12/26/22 05:10 Troponin T Hi Sens 6Hr Delta -6.13 ng/L (0-12) L 12/26/22 05:10 NT-Pro-B Natriuret Pep 1551 pg/mL (0-125) H 12/25/22 16:10 Total Protein 6.9 g/dL (6.6-8.7) 12/26/22 05:10 Albumin 3.8 g/dL (3.5-5.2) 12/26/22 05:10 Globulin 3.1 g/dL (1.3-4.6) 12/26/22 05:10 Urine Color Yellow (Yellow) 12/25/22 19:10 Urine Appearance Clear (CLEAR) 12/25/22 19:10 Urine pH 5 (5-7) 12/25/22 19:10 Ur [address] [place] 1.020 (1.005-1.030) 12/25/22 19:10 Urine Protein 1+ (Negative) H 12/25/22 19:10 Urine Glucose (UA) Norm (Normal) 12/25/22 19:10 Urine Ketones Negative (Negative) 12/25/22 19:10 Urine Blood Neg (Negative) 12/25/22 19:10 Urine Nitrate Negative (Negative) 12/25/22 19:10 Urine Bilirubin Neg (Negative) 12/25/22 19:10 Urine Urobilinogen Norm mg/dL (Negative) 12/25/22 19:10 Ur Leukocyte Esterase Negative (Negative) 12/25/22 19:10 Urine RBC 0-4 /hpf (0-2) H 12/25/22 19:10 Urine WBC 0-4 /hpf (0-5) H 12/25/22 19:10 Ur Squamous Epith Cells 0-4 /hpf (0-5) H 12/25/22 19:10 Amorphous Sediment Not Reportable 12/25/22 19:10 Urine Bacteria Trace /hpf (NONE) 12/25/22 19:10 Hyaline Casts 0-4 /lpf H 12/25/22 19:10 Ethyl Alcohol < 10 mg/dL (0-10) 12/25/22 16:47 Radiology Impressions Chest X-Ray 12/25/22 16:03 IMPRESSION: Minimal lingular atelectasis or infiltrate. Correlate for infection. Head CT 12/25/22 16:03 IMPRESSION: No acute intracranial abnormality. Abdomen/Pelvis CT 12/25/22 18:09 IMPRESSION: 1. Small nonobstructing renal calculi. No ureteral calculus or hydronephrosis. 2. Findings suspicious for acute versus chronic cholecystitis with wall edema and pericholecystic stranding. Follow-up with ultrasound recommended. COMMENTS: Consistent with the [employer]'s Incidental Findings Committee white paper (J Am Chiara Radiol 2018): Any incidental renal lesion less than 1 cm or classified as too small to characterize, or any incidental cystic renal lesion characterized as simple-appearing, is likely benign. No follow-up imaging is recommended for these lesions per consensus recommendations based on imaging criteria. Liver Ultrasound 12/26/22 19:22 IMPRESSION: 1. Study terminated early at the patient's request. Evaluation is incomplete. 2. The gallbladder contains biliary sludge and shadowing gallstones. Gallbladder wall is thickened. Negative sonographic Juan's sign reported. 3. Liver is enlarged measuring 20 cm in length. Abnormally increased hepatic echogenicity, consistent with hepatic steatosis. 4. 3.7 x 2.7 x 2.6 cm slightly hyperechoic lesion in the left lobe of the liver, which may represent hepatic hemangioma. This lesion is not well demonstrated on previous noncontrast CT of 12/25/2022. Consider nonemergent follow-up MRI liver to characterize this mass. Recent Clincial Data Last Vital Signs Temp 97.7 F 12/27/22 16:00 Pulse 77 12/27/22 16:00 Resp 16 12/27/22 16:00 BP 166/95 12/27/22 16:00 Pulse Ox 93 12/27/22 16:00 O2 Del Method 12/27/22 16:00 O2 Flow Rate 3.5 12/27/22 16:00 FiO2 35 12/27/22 02:05 Vital Signs Temp Pulse Resp BP Pulse Ox O2 Del Method O2 Flow Rate 12/27/22 16:00 97.7 F 77 16 166/95 93 Nasal Cannula 3.5 12/27/22 15:50 96 Nasal Cannula 3.5 12/27/22 12:00 97.7 F 64 14 132/82 96 Nasal Cannula 3.5 12/27/22 08:00 97.7 F 69 14 131/81 95 12/27/22 05:41 16 Intake & Output/Weight 12/25/22 12/26/22 12/27/22 12/28/22 06:59 06:59 06:59 06:59 Intake Total 1800 / 1800 1460 / 1460 50 / 50 Output Total 2300 / 2300 Balance -500 / -500 1460 / 1460 50 / 50 Weight 107.048 kg Vitals Last Vital Signs Temp 97.7 F 12/27/22 16:00 Pulse 77 12/27/22 16:00 Resp 16 12/27/22 16:00 BP 166/95 12/27/22 16:00 Pulse Ox 93 12/27/22 16:00 O2 Del Method 12/27/22 16:00 O2 Flow Rate 3.5 12/27/22 16:00 FiO2 35 12/27/22 02:05 TS Medications Medications Acetaminophen (Acetaminophen 325 Mg Tablet) 650 mg PO Q6H PRN PRN Reason: Mild/Mod Pain Or Temp >/= 101 Hydrocodone Bitart/Acetaminophen (Hydrocodone-Acetaminophen 5-325 Mg Tablet) 1 tab PO Q6H PRN PRN Reason: Pain Last Admin: 12/27/22 14:32 Dose: 1 tab Albuterol/Ipratropium (Ipratropium-Albuterol 3 Ml Neb) 3 ml INHALATION Q6H.RESP RAINE Last Admin: 12/27/22 15:50 Dose: Not Given Aripiprazole (Aripiprazole 10 Mg Tablet) 15 mg PO QAM [facility] Last Admin: 12/27/22 05:22 Dose: 15 mg Atorvastatin Calcium (Atorvastatin 40 Mg Tablet) 40 mg PO BEDTIME [facility] Last Admin: 12/25/22 22:28 Dose: 40 mg Budesonide (Budesonide 0.5 Mg/2 Ml Neb) 0.5 mg INHALATION BID.RESPIRATORY [facility] Last Admin: 12/27/22 09:40 Dose: Not Given Bupropion HCl (Bupropion Xl (24 Hr) 300 Mg Tablet) 300 mg PO DAILY@15 RAINE Last Admin: 12/27/22 14:32 Dose: 300 mg Clopidogrel Bisulfate (Clopidogrel 75 Mg Tablet) 75 mg PO QAM [facility] Last Admin: 12/27/22 05:23 Dose: 75 mg Dextrose (Dextrose 50% Syringe 50 Ml) 25 ml IVP ONCE PRN; Protocol PRN Reason: hypoglycemia protocol Dextrose (Dextrose 50% Syringe 50 Ml) 50 ml IVP PRN PRN; Protocol PRN Reason: hypoglycemia protocol Gabapentin (Gabapentin 300 Mg Capsule) 600 mg PO TID [facility] Last Admin: 12/27/22 14:32 Dose: 600 mg Glucagon (Glucagon 1 Mg/Ml Inj 1 Ml) 1 mg IM ONCE PRN; Protocol PRN Reason: Adult Acute Hypoglycemia Prot. Dextrose (D5w) 500 mls @ 100 mls/hr IV ONCE PRN; Protocol PRN Reason: Adult Acute Hypoglycemia Prot Piperacillin Sod/Tazobactam (Sod 3.375 gm/ Sodium Chloride) 50 mls @ 12.5 mls/hr IV Q8H [facility]; Protocol Last Admin: 12/27/22 12:18 Dose: 12.5 mls/hr Insulin Human Lispro (Insulin Lispro 100 Unit/1 Ml) 0 unit SUBCUT WM&BEDTIME [facility]; Protocol Last Admin: 12/27/22 12:18 Dose: 8 unit Isosorbide Mononitrate (Isosorbide Mononitrate Er 30 Mg Tablet) 30 mg PO QAM [facility] Last Admin: 12/27/22 08:38 Dose: 30 mg Lidocaine (Lidocaine 5% Patch) 1 patch TOPICAL [id number] [facility] Last Admin: 12/27/22 10:52 Dose: 1 patch Methylprednisolone Sodium Succinate (Methylprednisolone Sod Succ 40 Mg/Ml Inj) 40 mg IVP DAILY [facility] Last Admin: 12/27/22 08:36 Dose: 40 mg Metoprolol Succinate (Metoprolol Succinate Er (24 Hr) 100 Mg Tablet) 100 mg PO BEDTIME [facility] Last Admin: 12/26/22 22:05 Dose: Not Given Metoprolol Tartrate (Metoprolol Tartrate 25 Mg Tablet) 12.5 mg PO BID@0900,2100 [facility] Last Admin: 12/27/22 10:42 Dose: 12.5 mg Morphine Sulfate (Morphine 4 Mg/Ml Sdv 1 Ml) 2 mg IVP Q4H PRN PRN Reason: SEVERE PAIN Last Admin: 12/27/22 05:41 Dose: 2 mg Naloxone HCl (Naloxone 0.4 Mg/Ml Sdv) 0.1 mg IVP Q2M PRN PRN Reason: OPIATERV Non-Formulary Medication (Jwhmqofuro-Pplnonzq-Hdsavj Ala [Odefsey]) 1 tab PO BEDTIME [facility] Last Admin: 12/26/22 22:05 Dose: 1 tab Ondansetron HCl (Ondansetron 2 Mg/Ml Sdv 2 Ml) 4 mg IVP Q8H PRN PRN Reason: vomiting, or N/V if npo Sertraline HCl (Sertraline 100 Mg Tablet) 100 mg PO QAM [facility] Last Admin: 12/27/22 05:23 Dose: 100 mg Discontinued Medications Albuterol/Ipratropium (Ipratropium-Albuterol 3 Ml Neb) 3 ml INHALATION ONCE ONE Stop: 12/25/22 16:46 Last Admin: 12/25/22 17:09 Dose: 3 ml Apixaban (Apixaban 5 Mg Tablet) 5 mg PO BID [facility] Last Admin: 12/27/22 08:36 Dose: 5 mg Furosemide (Furosemide 10 Mg/Ml Sdv 4ml) 40 mg IVP ONCE ONE Stop: 12/25/22 18:13 Last Admin: 12/25/22 18:40 Dose: 40 mg Furosemide (Furosemide 10 Mg/Ml Sdv 4ml) 40 mg IVP ONCE ONE Stop: 12/27/22 15:41 Last Admin: 12/27/22 16:09 Dose: 40 mg Sodium Chloride (Sodium Chloride 0.9%) 500 mls @ 500 mls/hr IV ONCE ONE Stop: 12/25/22 17:02 Last Infusion: 12/25/22 17:22 Dose: Infused Isosorbide Mononitrate (Isosorbide Mononitrate Er 60 Mg Tablet) 120 mg PO QAM [facility] Last Admin: 12/26/22 05:27 Dose: 120 mg Levofloxacin (Levofloxacin 750 Mg Tablet) 750 mg PO EVERY OTHER DAY [facility]; Protocol Last Admin: 12/26/22 08:50 Dose: 750 mg Levofloxacin (Levofloxacin 750 Mg Tablet) 750 mg PO Q24H [facility]; Protocol Methylprednisolone Sodium Succinate (Methylprednisolone Sod Succ 125 Mg/2 Ml Inj) 125 mg IVP ONCE ONE Stop: 12/25/22 16:46 Last Admin: 12/25/22 17:22 Dose: 125 mg Methylprednisolone Sodium Succinate (Methylprednisolone Sod Succ 40 Mg/Ml Inj) 40 mg IVP Q12H [facility] Methylprednisolone Sodium Succinate (Methylprednisolone Sod Succ 40 Mg/Ml Inj) 40 mg IVP Q12H [facility] Last Admin: 12/26/22 08:49 Dose: 40 mg Allergies bee venom protein (honey bee) Allergy (Verified 12/25/22 16:05) ALGY-Difficulty Breathing cat dander Allergy (Verified 12/25/22 21:23) ALGY-Hives Home Medications albuterol sulfate 90 mcg/actuation aerosol inhaler 2 puff inhalation QID PRN shortness of breath or wheezing 05/26/22 [History Confirmed 12/25/22] apixaban 5 mg tablet (Eliquis) 5 mg PO BID 05/26/22 [History Confirmed 12/25/22] aripiprazole 15 mg tablet (Abilify) 15 mg PO QAM 05/26/22 [History Confirmed 12/25/22] atorvastatin 80 mg tablet 80 mg PO BEDTIME 05/26/22 [History Confirmed 12/25/22] emtricitabine 200 mg-rilpivirine 25 mg-tenofovir alafenam 25 mg tablet (Odefsey) 1 tab PO BEDTIME 05/26/22 [History Confirmed 12/25/22] nitroglycerin 0.4 mg sublingual tablet 0.4 mg sublingual Q5M PRN chest pain 05/26/22 [History Confirmed 12/25/22] sertraline 100 mg tablet 100 mg PO QAM 05/26/22 [History Confirmed 12/25/22] carica papaya (Papaya Enzyme tablet) 1 tab PO DAILY 10/13/22 [History Confirmed 12/25/22] fluticasone fur. 100 mcg-umeclid 62.5 mcg-vilant 25 mcg inhalat.powder (Trelegy Ellipta) 1 ea inhalation DAILY 10/13/22 [History Confirmed 12/25/22] fluticasone propionate 50 mcg/actuation nasal spray,suspension 2 spray intranasal DAILY 10/13/22 [History Confirmed 12/25/22] gabapentin 300 mg capsule 600 mg PO TID 10/13/22 [History Confirmed 12/25/22] hydrocodone 5 mg-acetaminophen 325 mg tablet 1 tab PO .EVERY 4-6 HOURS PRN Pain 10/13/22 [History Confirmed 12/25/22] metformin 500 mg tablet 500 mg PO DAILY 10/13/22 [History Confirmed 12/25/22] clopidogrel 75 mg tablet (Plavix) 75 mg PO QAM 10/28/22 [History Confirmed 12/25/22] furosemide 40 mg tablet 40 mg PO QAM 10/28/22 [History Confirmed 12/25/22] ondansetron HCl 4 mg tablet 4 mg PO Q4H PRN Nausea And Vomiting 10/28/22 [History Confirmed 12/25/22] aspirin 325 mg tablet 325 mg PO DAILY PRN Pain 12/25/22 [History Confirmed 12/25/22] celecoxib 100 mg capsule 100 mg PO DAILY 12/25/22 [History Confirmed 12/25/22] cholecalciferol (vitamin D3) 25 mcg (1,000 unit) tablet 25 mcg PO DAILY 12/25/22 [History Confirmed 12/25/22] iron 18 mg tablet 18 mg PO DAILY 12/25/22 [History Confirmed 12/25/22] isosorbide mononitrate 60 mg tablet,extended release 24 hr 60 mg PO QAM 12/25/22 [History Confirmed 12/25/22] lisinopril 10 mg tablet 10 mg PO DAILY 12/25/22 [History Confirmed 12/25/22] meloxicam 15 mg tablet 15 mg PO DAILY 12/25/22 [History Confirmed 12/25/22] metoprolol succinate 100 mg tablet,extended release 24 hr 100 mg PO BEDTIME 12/25/22 [History Confirmed 12/25/22] prenat.vits,alexandro,dmt-hdpa-xcywl 1 tab PO DAILY 12/25/22 [History Confirmed 12/25/22] turmeric root extract 500 mg capsule 500 mg PO DAILY 12/25/22 [History Confirmed 12/25/22] vitamin A-vitamin C-vit E-min tablet 1 tab PO DAILY 12/25/22 [History Confirmed 12/25/22] Discharge Plan Discharge Patient Disposition: Xfer Other Condition: Stable Prescriptions: No Action Eliquis 5 mg tablet 5 mg PO BID aripiprazole [Abilify] 15 mg tablet 15 mg PO QAM sertraline 100 mg tablet 100 mg PO QAM atorvastatin 80 mg tablet 80 mg PO BEDTIME Odefsey 200-25-25 mg tablet 1 tab PO BEDTIME nitroglycerin 0.4 mg tablet, sublingual 0.4 mg sublingual Q5M PRN (Reason: chest pain) albuterol sulfate 90 mcg/actuation HFA aerosol inhaler 2 puff inhalation QID PRN (Reason: shortness of breath or wheezing) hydrocodone-acetaminophen 5-325 mg tablet 1 tab PO .EVERY 4-6 HOURS MDD 3 tabs PRN (Reason: Pain) gabapentin 300 mg capsule 600 mg PO TID fluticasone propionate 50 mcg/actuation spray,suspension 2 spray INTRANASAL DAILY metformin 500 mg tablet 500 mg PO DAILY Rx Instructions: With breakfast Trelegy Ellipta 100-62.5-25 mcg blister with device 1 ea INHALATION DAILY carica papaya [Papaya Enzyme] Tablet 1 tab PO DAILY ondansetron HCl 4 mg tablet 4 mg PO Q4H PRN (Reason: Nausea And Vomiting) furosemide 40 mg tablet 40 mg PO QAM clopidogrel [Plavix] 75 mg tablet 75 mg PO QAM aspirin 325 mg Tablet 325 mg PO DAILY PRN (Reason: Pain) meloxicam 15 mg Tablet 15 mg PO DAILY metoprolol succinate 100 mg Tablet Extended Release 24 Hr 100 mg PO BEDTIME isosorbide mononitrate 60 mg Tablet Extended Release 24 Hr 60 mg PO QAM lisinopril 10 mg Tablet 10 mg PO DAILY celecoxib 100 mg Capsule 100 mg PO DAILY iron 18 mg Tablet 18 mg PO DAILY [facility] Tablet 1 tab PO DAILY Vitamin Tablet 1 tab PO DAILY cholecalciferol (vitamin D3) 25 mcg (1,000 unit) Tablet 25 mcg PO DAILY turmeric root extract 500 mg Capsule 500 mg PO DAILY Discharge Orders: Discharge Order (Routine); Ordered 12/27/22 Ordered By: Sary Zavala Referrals: Ayers,Alexa, REGISTERED NURSE PRACTITIONER [Primary Care Provider] - Transfer Attestations Time Spent in Transfer Care: greater than 30 min Quality Metrics Clinical Quality Measures [ No reported AMI, CVA or VTE this stay] Coding Level of Care Code Acute Code for Chg Fwd Diagnoses Acute respiratory failure with hypoxia and hypercarbia J96.01; J96.02 Diastolic heart failure I50.30 COPD exacerbation J44.1 JOSE (acute kidney injury) N17.9 Transaminitis R74.01
[2022-12-27 17:11] LABS: Glucose Point of Care 314 mg/dL (70-110)
== END 2022-12-27 17:46 | disposition short-term general hospital (02) | DRG 291 ==
LOC: ER 18:13 → MEDSURG 18:51
PROVIDERS: Admitting Provider Student in an Organized Health Care Education/Training Program; Emergency Provider Emergency Medicine; PCP Nurse Practitioner Family; Visit Provider Student in an Organized Health Care Education/Training Program
DX: I11.0 Hypertensive heart disease with heart failure (principal); I50.33 Acute on chronic diastolic (congestive) heart failure; J96.02 Acute respiratory failure with hypercapnia; J96.01 Acute respiratory failure with hypoxia; J44.1 Chronic obstructive pulmonary disease with (acute) exacerbation; N17.9 Acute kidney failure, unspecified; K81.0 Acute cholecystitis; E66.2 Morbid (severe) obesity with alveolar hypoventilation; Z68.41 Body mass index [BMI] 40.0-44.9, adult; I25.10 Atherosclerotic heart disease of native coronary artery without angina pectoris; Z95.5 Presence of coronary angioplasty implant and graft; I48.91 Unspecified atrial fibrillation; I49.5 Sick sinus syndrome; D18.09 Hemangioma of other sites; Z79.51 Long term (current) use of inhaled steroids; Z79.02 Long term (current) use of antithrombotics/antiplatelets; Z79.84 Long term (current) use of oral hypoglycemic drugs; I25.2 Old myocardial infarction; Z87.891 Personal history of nicotine dependence
CPT/HCPCS: 36415; 36416; 36600; 70450; 71045; 74176; 76705; 80053; 80307; 81001; 82803; 82962; 83735; 83880; 84484; 85025; 85378; 93005; 94640; 94660; 96372; 96374; 96375; 99285; J1815; J1940; J2270; J2543; J2920; J2930; J7040; J7626

== ENCOUNTER 2023-01-12 07:57 | Inpatient (IN) | payer MEDICARE, MEDICAID, SELFPAY ==
[2023-01-12] VITALS (77 sets, daily range): BP systolic 94–185; BP diastolic 58–90; PULSE 49–70; RESP 13–26; TEMP 36.4–36.7; O2SAT 88–98; BMI 39.4
--- NOTE | 2023-01-12 08:10 | XR_ITS ---
WS: [id number] EXAMINATION: XR chest 1V portable [id number] REASON FOR EXAM: dyspnea/cough COMPARISON: 12/25/2022 ORDER DATE: 01/12/2023 8:35 AM TECHNIQUE: A single, portable frontal chest x-ray was obtained. X-RAY FINDINGS: The lungs are clear. Pleural spaces are clear. No pleural effusions or pneumothorax. Cardiomediastinal silhouette is normal. No evidence for pulmonary edema. Soft tissue and osseous structures are unremarkable. No tubes or lines are present. XR/XR chest 1V portable [id number] IMPRESSION: Unremarkable frontal portable chest x-ray.
--- NOTE | 2023-01-12 08:11 | W.ED.GENADLT ---
HPI - General Adult General: Chief complaint: Weakness Stated complaint: states entire body pain Time Seen by Provider: 01/12/23 08:04 Source: patient Mode of arrival: ambulatory History of Present Illness: 67-year-old female presents emergency room feeling extremely weak. Says she cannot do anything and she hurts all over. Presents with an O2 sat of 70% on room air she is not on any oxygen normally she should be wearing 2 L by nasal cannula, she states she mostly wears this at night. She is placed on 5 L by nasal cannula she denied any chest pain. She has noticed some swelling in her extremities. No vomiting no diarrhea no abdominal pain. Reviewing old records patient was previously hospitalized here there was concern about her gallbladder she was transferred out however they did not intervene with her gallbladder she was treated medically conservatively seem to have improved. Onset (ago): hour(s) Severity: moderate Quality: aching Pain Consistency: constant Relieving factors: none Exacerbating factors: none Associated symptoms: Reports cough, decreased appetite, dyspnea, fevers/chills, malaise, nausea, short of breath and weakness; Deny chest pain, confusion, diaphoresis, headache(s), rash, palpitations, seizures, syncope or vomiting Review of Systems Const: Reports: malaise; Denies: fever(s), chills, fatigue or diaphoresis ENMT: Denies: throat pain, ear or mastoid pain, nasal discharge or nasal congestion Card: Denies: chest pain, palpitations or syncope Resp: Reports: dyspnea GI: Reports: nausea; Denies: vomiting : Denies: flank pain, difficulty voiding, dysuria, urinary frequency or urinary urgency Skin/Breast: Denies: rash or pruritus Neuro: Denies: headache(s) or confusion PFSH ED PFSH: Medical History Atrial fibrillation Benign essential HTN CAD (coronary artery disease) Cholelithiasis Chronic kidney disease COPD (chronic obstructive pulmonary disease) Diastolic heart failure Dyslipidemia Hypertension Obstructive sleep apnea Peripheral edema Surgical History History of lobectomy of lung History of PTCA History of resection of small bowel Hx of section Hx of unilateral nephrectomy Family History Father CAD (coronary artery disease), Onset Age: 46 NM Cancer Dementia Diabetes Mother CAD (coronary artery disease), Onset Age: 82 Diabetes Denies family history of Clotting disorder Chronic kidney disease (CKD) Suicide Anesthesia complication Bleeding disorder Lung disease Stroke Social History Smoking and tobacco status: former smoker Alcohol intake: former Physical Exam Const: GENERAL APPEARANCE: cooperative and comfortable ORIENTATION/CONSCIOUSNESS: Yes awake, Yes oriented to person, Yes oriented to place and Yes oriented to time HENMT: COMMON NORMALS: normocephalic, atraumatic and hearing grossly normal bilaterally HEAD & SCALP: normocephalic and atraumatic Resp: COMMON NORMALS: normal respiratory effort, No retractions and No use of accessory muscles AUSCULTATION: rhonchi and wheezes Cardio: COMMON NORMALS: regular rhythm and No murmurs present (Cardio) RATE: bradycardic RHYTHM: regular rhythm GI: COMMON NORMALS: Soft to palpation and No hepatosplenomegaly present AUSCULTATION: Yes normoactive bowel sounds PALPATION: Yes Soft to palpation, No Tenderness to palpation present (GI), No Guarding due to palpation present (GI) and Yes No hepatosplenomegaly present Extremity: COMMON NORMALS: normal to inspection, capillary refill normal, no clubbing, cyanosis or edema, no calf tenderness and no pedal edema Neuro: SENSORIUM/ORIENTATION: Yes oriented to person, Yes oriented to place and Yes oriented to time Skin: COMMON NORMALS: no rashes or lesions noted GENERAL SKIN EXAM: no rashes or lesions noted Course Vital Signs: Vital signs: Vital Signs Temperature 97.4 F L 01/13/23 04:00 Pulse Rate 47 L 01/13/23 04:00 Respiratory Rate 19 H 01/13/23 04:00 Blood Pressure 146/78 01/13/23 04:00 Pulse Oximetry 94 01/13/23 04:00 Oxygen Delivery Me thod 01/13/23 04:00 Oxygen Flow Rate 5 01/12/23 08:59 Fraction of Inspir ed Oxygen 35 01/13/23 04:00 MDM - General Adult Medical Decision Making Initial blood gas shows hypercapnia. I think that is also because of her not feeling well. Troponin and transaminases are elevated gallbladder ultrasound pending. Discussed with the hospitalist orders written she does not appear to have acute coronary syndrome she does appear to have exacerbation of COPD along with some tension mild heart failure and acute respiratory compromise due to her COPD with hypercapnia and hypoxia. Will admit patient is on CPAP BiPAP at this time. Medical Records I reviewed the patient's medical records. Lab Data I reviewed the patient's lab results. 01/12/23 08:32 01/12/23 08:32 Radiology Impressions Chest X-Ray 01/12/23 08:10 IMPRESSION: Unremarkable frontal portable chest x-ray. Gallbladder Ultrasound 01/12/23 09:22 IMPRESSION: 1. Markedly abnormal gallbladder. Advanced acute cholecystitis. Diffuse wall thickening with nonshadowing soft tissue in the gallbladder which may be tumefactive sludge versus neoplasm. On the prior study there was a possible gallstone noted near the gallbladder fossa. No gallstone identified today. Stone could be entrapped near the gallbladder neck or external to the gallbladder depending on the patient's presentation. Surgical evaluation is recommended. 2. No intrahepatic bile duct dilatation. 3. Mild hepatic steatosis and possible cirrhosis. Laboratory Results WBC 13.0 10^3/uL (4.0-10.0) H 01/12/23 08:32 RBC 4.28 10^6/uL (4.1-5.3) 01/12/23 08:32 Hgb 13.2 g/dL (11.5-15.3) 01/12/23 08:32 Hct 42.6 % (37.0-47.0) 01/12/23 08:32 MCV 99.5 fl (81-99) H 01/12/23 08:32 MCH 30.8 pg (28.0-34.0) 01/12/23 08:32 MCHC 31.0 g/dL (30.0-36.0) 01/12/23 08:32 RDW 15.0 % (12.1-15.1) 01/12/23 08:32 Plt Count 238 10^3/cmm (130-400) 01/12/23 08:32 MPV 10.2 fL (7.4-10.4) 01/12/23 08:32 Neut % (Auto) 79.1 % 01/12/23 08:32 Lymph % (Auto) 10.7 % 01/12/23 08:32 [place] % (Auto) 8.5 % 01/12/23 08:32 Eos % (Auto) 0.1 % 01/12/23 08:32 Baso % (Auto) 0.3 % 01/12/23 08:32 Neut # (Auto) 10.27 10^3/uL (1.8-7.7) H 01/12/23 08:32 Lymph # (Auto) 1.4 10^3/uL (0.8-4.8) 01/12/23 08:32 [place] # (Auto) 1.1 10^3/uL (0.2-0.9) H 01/12/23 08:32 Eos # (Auto) 0.0 10^3/uL (0.0-0.8) 01/12/23 08:32 Baso # (Auto) 0.0 10^3/uL (0.0-0.1) 01/12/23 08:32 Nucleated RBC % (auto) 0.8 % 01/12/23 08:32 Nucleated RBCs # 0.1 /100WBC 01/12/23 08:32 Specimen Type Arterial 01/12/23 10:57 Sample Site Brachial, left 01/12/23 10:57 ABG pH 7.21 (7.35-7.45) L 01/12/23 10:57 ABG pCO2 78.1 mmHg (35-45) H* 01/12/23 10:57 ABG pO2 61.1 mmHg (80.0-100.0) L 01/12/23 10:57 ABG HCO3 31.3 mmol/L (22-26) H 01/12/23 10:57 ABG O2 Saturation 94.1 01/12/23 08:29 ABG Base Excess 1.2 mmol/L (-2.0-2.0) 01/12/23 10:57 Eddie Test N/a 01/12/23 10:57 A-a O2 Gradient Not Reportable 01/12/23 08:29 Hematocrit 41.3 % (37-47) 01/12/23 10:57 Hgb O2 Saturation 91.4 % (95-100) L 01/12/23 08:29 Carboxyhemoglobin 1.9 %THgb (0.4-20.1) 01/12/23 08:29 Methemoglobin 0.9 % (0.4-1.5) 01/12/23 08:29 Total Hemoglobin 13.9 g/dL (12-16) 01/12/23 08:29 Sodium 139.0 mmol/L (131-143) 01/12/23 08:29 Potassium 4.1 mmol/L (3.5-5.0) 01/12/23 08:29 Glucose 217.0 mg/dL (70-115) H 01/12/23 08:29 Ionized Calcium 1.2 mmol/L (1.1-1.4) 01/12/23 08:29 O2 Delivery Device Bipap 01/12/23 10:57 O2 Liters/Min 5.0 % 01/12/23 08:29 FiO2 30.0 % 01/12/23 10:57 PEEP 8.0 cmH20 01/12/23 10:57 Dowel Setting Machine Operator ID Amh 01/12/23 10:57 Sodium 134 mmol/L (136-145) L 01/12/23 08:32 Potassium 4.4 mmol/L (3.5-5.1) 01/12/23 08:32 Chloride 94 mmol/L (98-107) L 01/12/23 08:32 Carbon Dioxide 30 mmol/L (22-29) H 01/12/23 08:32 Anion Gap 14.4 (5-19) 01/12/23 08:32 BUN 49 mg/dL (8-23) H 01/12/23 08:32 Creatinine 3.2 mg/dL (0.5-0.9) H 01/12/23 08:32 GFR Calculation 14.5 mL/min (90-130) L 01/12/23 08:32 Glucose 225 mg/dL (65-115) H 01/12/23 08:32 Calculated Osmolality 298 mOsm/kg (285-295) H 01/12/23 08:32 Lactic Acid 1.6 mmol/L (0.5-2.2) 01/12/23 08:32 Calcium 9.1 mg/dL (8.5-10.5) 01/12/23 08:32 Total Bilirubin 0.7 mg/dL (0.15-1.2) 01/12/23 08:32 AST 146 U/L (0-32) H 01/12/23 08:32 ALT 199 U/L (0-33) H 01/12/23 08:32 Alkaline Phosphatase 137 U/L (35-105) H 01/12/23 08:32 Creatine Kinase 190 U/L (26-192) 01/12/23 08:32 Troponin T Baseline 39 ng/L (0-10) H 01/12/23 08:32 Troponin T 120 Minute 30.66 ng/L (0-10) H 01/12/23 10:34 Delta Troponin T -8.34 ABS# (0-10) L 01/12/23 10:34 NT-Pro-B Natriuret Pep 56555 pg/mL (0-125) H 01/12/23 08:32 Total Protein 6.3 g/dL (6.6-8.7) L 01/12/23 08:32 Albumin 3.8 g/dL (3.5-5.2) 01/12/23 08:32 Globulin 2.5 g/dL (1.3-4.6) 01/12/23 08:32 Procalcitonin 0.44 ng/mL (0-0.5) 01/12/23 08:32 Urine Color Yellow (Yellow) 01/12/23 10:25 Urine Appearance Clear (CLEAR) 01/12/23 10:25 Urine pH 7 (5-7) 01/12/23 10:25 Ur Specific [place] 1.010 (1.005-1.030) 01/12/23 10:25 Urine Protein Trace (Negative) 01/12/23 10:25 Urine Glucose (UA) Norm (Normal) 01/12/23 10:25 Urine Ketones Negative (Negative) 01/12/23 10:25 Urine Blood Neg (Negative) 01/12/23 10:25 Urine Nitrate Negative (Negative) 01/12/23 10:25 Urine Bilirubin Neg (Negative) 01/12/23 10:25 Urine Urobilinogen Neg mg/dL (Negative) 01/12/23 10:25 Ur Leukocyte Esterase Negative (Negative) 01/12/23 10:25 Urine RBC 0-4 /hpf (0-2) H 01/12/23 10:25 Urine WBC Rare /hpf (0-5) 01/12/23 10:25 Ur Squamous Epith Cells Rare /hpf (0-5) 01/12/23 10:25 Calcium Oxalate Crystal 0-4 /hpf H 01/12/23 10:25 Amorphous Sediment 2+ /hpf 01/12/23 10:25 Urine Bacteria None /hpf (NONE) 01/12/23 10:25 Hyaline Casts 15-25 /lpf H 01/12/23 10:25 Coronavirus 229E (PCR) Not detected (NOT DETECT) 01/12/23 08:50 SARS-CoV-2 (PCR) Not detected (NOT DETECT) 01/12/23 08:50 Discharge Plan Discharge Patient Disposition: Admitted As Inpatient Admit Provider: Ad Ibarra Clinical Impression: Acute respiratory failure with hypoxia and hypercarbia, Acute metabolic encephalopathy, JOSE (acute kidney injury), Transaminitis, Elevated troponin Condition: Stable Coding Level of Care Code ED Pricing Analyst for Irena Hermosillo
--- NOTE | 2023-01-12 08:16 | ECG_ITS ---
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 Measurements Intervals [place] Rate: 64 P: 119 OK: 139 QRS: 61 QRSD: 88 T: 74 QT: 427 QTc: 442 Interpretive Statements SINUS RHYTHM POSSIBLE RIGHT VENTRICULAR CONDUCTION DELAY [RSR (QR) IN V1/V2] Diffuse nonspecific T wave changes ANTEROSEPTAL MYOCARDIAL INFARCTION , OF INDETERMINATE AGE [40+ ms Q WAVE IN V1-V4] Compared to ECG 12/26/2022 10:00:31 No significant changes Electronically Signed On 01-12-2023 23:37:47 CDT by Alberta Archer M.D. [id number]
[2023-01-12 08:40] LABS: ABG PH Result 7.24 (7.35-7.45); Arterial Blood Gas Hematocrit 42.7 % (37-47); Blood Gas Allen Test Pos; Blood Gas Sample Site Radial, left; Blood Gas Sample Type Arterial; Carboxyhemoglobin 1.9 %THgb (0.4-20.1); HCO3 ABG 28.1 mmol/L (22-26); HGB O2 Sat 91.4 % (95-100); Ionized Calcium Level - ABG 1.2 mmol/L (1.1-1.4); Methemoglobin 0.9 % (0.4-1.5); Oxygen Device NC; Oxygen Saturation ABG 94.1; PO2 ABG 80.4 mmHg (80.0-100.0); Potassium Level - ABG 4.1 mmol/L (3.5-5.0); Total Hemoglobin 13.9 g/dL (12-16)
[2023-01-12 08:43] LABS: Basophils % 0.3 %; Eosinophils % 0.1 %; Hematocrit 42.6 % (37.0-47.0); Hemoglobin 13.2 g/dL (11.5-15.3); Lymphocytes # 1.4 10^3/uL (0.8-4.8); Lymphocytes % 10.7 %; Mean Corpuscular Hemoglobin 30.8 pg (28.0-34.0); Mean Corpuscular Volume 99.5 fl (81-99); Mean Platelet Volume 10.2 fL (7.4-10.4); Monocytes # 1.1 10^3/uL (0.2-0.9); Monocytes % 8.5 %; Neutrophils # 10.27 10^3/uL (1.8-7.7); Neutrophils % 79.1 %; Nucleated Red Blood Cells # 0.1 /100WBC; Nucleated Red Blood Cells % 0.8 %; Platelet Count 238 10^3/cmm (130-400); Red Blood Count 4.28 10^6/uL (4.1-5.3)
[2023-01-12 08:46] LABS: ABG PCO2 66.4 mmHg (35-45)
[2023-01-12 09:07] LABS: Lactic Sepsis W/Reflex 1.6 mmol/L (0.5-2.2)
[2023-01-12 09:09] LABS: Troponin(5th) Baseline 39 ng/L (0-10)
[2023-01-12 09:13] LABS: Alanine Aminotransferase 199 U/L (0-33); Albumin Level 3.8 g/dL (3.5-5.2); Alkaline Phosphatase 137 U/L (35-105); Anion Gap 14.4 (5-19); Aspartate Amino Transferase 146 U/L (0-32); Blood Urea Nitrogen 49 mg/dL (8-23); Calcium 9.1 mg/dL (8.5-10.5); Carbon Dioxide 30 mmol/L (22-29); Chloride 94 mmol/L (98-107); Globulin 2.5 g/dL (1.3-4.6); Glomerular Filtration Rate 14.5 mL/min (90-130); Glucose 225 mg/dL (65-115); NT Pro B Type Natriuretic Pept 18278 pg/mL (0-125); Osmolality Calculated 298 mOsm/kg (285-295); Potassium 4.4 mmol/L (3.5-5.1); Sodium 134 mmol/L (136-145); Total Bilirubin 0.7 mg/dL (0.15-1.2); Total Protein 6.3 g/dL (6.6-8.7)
--- NOTE | 2023-01-12 09:22 | US_ITS ---
WS: [id number] RIGHT UPPER QUADRANT ULTRASOUND HISTORY: elevated LFTS COMPARISON: 12/26/2022 Liver: 15.7 cm in length. Normal size liver. Mild heterogeneity throughout the liver suggesting hepat ic steatosis. Surface of the liver is very slightly nodular. This can be seen with early changes of c irrhosis. No hemangioma identified on today's exam. Portal Vein: Normal hepatopetal flow with monophasic waveform. Gallbladder: Abnormal gallbladder. Very thickened gallbladder wall. Within the central lumen of the g allbladder is nonshadowing intermediate focus which is probably a sludge ball. Gallbladder was also a bnormal on the prior examination and this has progressed. Possible stone was noted on the prior study noted the neck of the gallbladder. This stone is not identified today. Due to the marked progression of disease cholecystectomy is recommended. CBD: 0.6 cm Pancreas: Atrophied pancreas. Pancreatic duct is top normal size. Right kidney: 12.1 cm in length. Normal size and echogenicity. No hydronephrosis or mass. Aorta and IVC: Unremarkable abdominal aorta and IVC. No ascites. US/US gall bladder 55003 IMPRESSION: 1. Markedly abnormal gallbladder. Advanced acute cholecystitis. Diffuse wall t hickening with nonshadowing soft tissue in the gallbladder which may be tumefac tive sludge versus neoplasm. On the prior study there was a possible gallstone noted near the gallbladder fossa. No gallstone identified today. Stone could be entrapped near the gallbladder neck or external to the gallbladder depending o n the patient's presentation. Surgical evaluation is recommended. 2. No intrahepatic bile duct dilatation. 3. Mild hepatic steatosis and possible cirrhosis.
--- NOTE | 2023-01-12 09:30 | PC.PHAR ---
pt unable to verify medications-medications entered are meds that were on previous entered med list and what ext med history shows has been filled recently-ext med history shows metoprolol succinate er 50mg daily filled 01/01/23 30d/s from [facility] ext also shows a er 100mg daily filled 12/19/22 30d/s from [facility]-notes are made in the pharmacy comments
[2023-01-12] MEDS: dexamethasone 10 mg/mL INJ IVP (09:41)
[2023-01-12] MEDS: ipratropium-albuterol 3 mL Neb INHALATION ×5 (09:50→23:02)
--- NOTE | 2023-01-12 10:19 | USCV_ITS ---
Katie Andrews Age: 67 Gender: F : 1955 Exam Date: 01/12/2023 11:00 Ordering Phys: Ad Ibarra MD Technologist: Donald Walden [place] [facility] [place]: rt side strain BP: 129 / 72 HR: 56 Rhythm: Sinus Technical Quality: Adequate MEASUREMENTS (Male / Female) Normal Values 2D ECHO LV Diastolic Diameter PLAX 4.7 cm 4.2 - 5.9 / 3.9 - 5.3 cm LV Systolic Diameter PLAX 3.0 cm IVS Diastolic Thickness 1.3 cm 0.6 - 1.0 / 0.6 - 0.9 cm IVS Systolic Thickness 1.8 cm LVPW Diastolic Thickness 1.3 cm 0.6 - 1.0 / 0.6 - 0.9 cm LVPW Systolic Thickness 1.6 cm LVOT Diameter 1.4 cm LV Ejection Fraction 2D Teich 50.5 % LV Ejection Fraction MOD 2C 65.8 % LV Ejection Fraction 2C AL 66.8 % LA Diameter 4.4 cm IVC Diameter 3.1 cm M-MODE Aortic Annulus Diameter 3.7 cm LA Ao Ratio MM 1.1 MV E Point Septal Separation 0.8 cm DOPPLER AV Peak Velocity 211.0 cm/s LVOT Peak Velocity 121.0 cm/s AV Area Cont Eq vti 0.8 cm squared AV Area Cont Eq pk 0.9 cm squared MV Area PHT 2.7 cm squared Mitral E to A Ratio 1.4 MV E' Velocity 58.5 cm/s Mitral E to MV E' Ratio 15.7 Mitral E to LV E' Lateral Ratio 15.5 Mitral E to LV E' Septal Ratio 16.2 TR Peak Velocity 329.3 cm/s TR Peak Gradient 43.4 mmHg TV Peak E Velocity 114.0 cm/s Right Atrial Pressure 15.0 mmHg Pulmonary Artery Systolic Pressu 58.4 mmHg PV Peak Velocity 84.0 cm/s FINDINGS Left Ventricle Normal left ventricular size and systolic function, EF 68 %. Mild left ventricular hypertrophy. No regional wall motion abnormalities. Right Ventricle The right ventricle is normal in size and function. Right Atrium The right atrium is normal in size. Left Atrium The left atrium is normal in size. Mitral Valve Thickened mitral valve. Moderate mitral annular calcification. Aortic Valve Thickened aortic valve. Tricuspid Valve [id number] tricuspid valve regurgitation. Moderate pulmonary hypertension with an estimated pulmonary artery peak systolic pressure of 58 mmHg Pulmonic Valve Pulmonic valve not well visualized. Pericardium No pericardial effusion. Aorta Normal aortic annulus size. IVC Normal IVC dimension with <50% respiratory change of the inferior vena cava. CONCLUSIONS Normal left ventricular size and systolic function, EF 68 %. Mild left ventricular hypertrophy. No regional wall motion abnormalities. Thickened mitral valve. Moderate mitral annular calcification. Thickened aortic valve. [id number] tricuspid valve regurgitation. Moderate pulmonary hypertension with an estimated pulmonary artery peak systolic pressure of 58 mmHg. There is no pericardial effusion. Comparison with the previous study is difficult because of the difference in the technical quality. Dr Alberta Archer MD FAC (Electronically Signed) Final Date: 12 January 2023 19:07 S
--- NOTE | 2023-01-12 10:22 | ECG_ITS ---
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 Measurements Intervals [place] Rate: 53 P: 23 NC: 145 QRS: 47 QRSD: 78 T: 0 QT: 446 QTc: 421 Interpretive Statements SINUS BRADYCARDIA WITH OCCASIONAL SUPRAVENTRICULAR PREMATURE COMPLEXES ANTEROSEPTAL MYOCARDIAL INFARCTION , OF INDETERMINATE AGE [40+ ms Q WAVE IN V1-V4] Diffuse nonspecific T wave changes Compared to ECG 01/12/2023 08:16:21 Sinus rhythm no longer present Myocardial infarct finding still present Electronically Signed On 01-12-2023 23:48:56 CDT by Alberta Archer M.D. [id number]
--- NOTE | 2023-01-12 10:23 | P.HP_ITS ---
Providers/Chief Complaint Admitting Physician: Ad Ibarra MD Primary Care Provider: Alexa Ayers APN Chief Complaint: states entire body pain History of Present Illness Katie Andrews is a 67 year old female who presented to the emergency department complaining of weakness all over. I could not get a history from her, secondary to lethargy. When stimulated, she would wake up and with intense focus answer 1 question but quickly but go back to sleep. She was recently put on BiPAP, for CO2 retention. I gather she has had a little bit of loose stool. She denied feeling very swollen. She has been short of breath and when she was brought into the emergency department was not on her oxygen, and had a saturation of around 65%. I cannot get her to admit to any chest discomfort. There have been no obvious fevers. She reports she has back pain, but this seems to be a chronic issue. Again, further history is significantly limited secondary to her ability to awaken and maintain her level of alertness. Her most recent hospital stay appears to been in October where she had an angiogram, and circumflex stent at her obtuse marginal. A jailed 80% second diagonal and a 50% RCA lesion were also noted. She ultimately transferred to [place] for concern of acute cholecystitis, but according to the patient no surgery was needed. Review of Systems General: Reports: ROS unobtainable due to medical condition Medications/Allergies Home Medications Medication Instructions Recorded Confirmed Last Taken Type albuterol sulfate 90 mcg/actuation 2 puff inhalation QID PRN 05/26/22 01/12/23 12/25/22 History aerosol inhaler shortness of breath or wheezing apixaban 5 mg tablet (Eliquis) 5 mg PO BID 05/26/22 01/12/23 12/25/22 History aripiprazole 15 mg tablet (Abilify) 15 mg PO QAM 05/26/22 01/12/23 12/25/22 History atorvastatin 80 mg tablet 80 mg PO BEDTIME 05/26/22 01/12/23 12/24/22 History emtricitabine 200 mg-rilpivirine 1 tab PO BEDTIME 05/26/22 01/12/23 12/24/22 History 25 mg-tenofovir alafenam 25 mg tablet (Natalia) nitroglycerin 0.4 mg sublingual 0.4 mg sublingual Q5M PRN chest 05/26/22 01/12/23 Unknown History tablet pain sertraline 100 mg tablet 100 mg PO QAM 05/26/22 01/12/23 12/25/22 History carica papaya (Papaya Enzyme 1 tab PO DAILY 10/13/22 01/12/23 12/24/22 History tablet) fluticasone fur. 100 mcg-umeclid 1 inh inhalation DAILY 10/13/22 01/12/23 12/25/22 History 62.5 mcg-vilant 25 mcg inhalat.powder (Trelegy Ellipta) fluticasone propionate 50 1 - 2 spray intranasal DAILY 10/13/22 01/12/23 12/25/22 History mcg/actuation nasal spray,suspension gabapentin 300 mg capsule 600 mg PO TID 10/13/22 01/12/23 12/25/22 History hydrocodone 5 mg-acetaminophen 325 1 tab PO .EVERY 4-6 HOURS PRN Pain 10/13/22 01/12/23 Unknown History mg tablet metformin 500 mg tablet 500 mg PO DAILY 10/13/22 01/12/23 12/25/22 History clopidogrel 75 mg tablet (Plavix) 75 mg PO QAM 10/28/22 01/12/23 10/28/22 History furosemide 40 mg tablet 40 mg PO QAM 10/28/22 01/12/23 12/25/22 History ondansetron HCl 4 mg tablet 4 mg PO Q4H PRN Nausea And Vomiting 10/28/22 01/12/23 Unknown History aspirin 325 mg tablet 325 mg PO DAILY PRN Pain 12/25/22 01/12/23 Unknown History celecoxib 100 mg capsule 100 mg PO DAILY 12/25/22 01/12/23 12/25/22 History cholecalciferol (vitamin D3) 25 25 mcg PO DAILY 12/25/22 01/12/23 12/25/22 History mcg (1,000 unit) tablet iron 18 mg tablet 18 mg PO DAILY 12/25/22 01/12/23 12/25/22 History isosorbide mononitrate 60 mg 60 mg PO QAM 12/25/22 01/12/23 12/25/22 History tablet,extended release 24 hr lisinopril 10 mg tablet 10 mg PO DAILY 12/25/22 01/12/23 12/25/22 History meloxicam 15 mg tablet 15 mg PO DAILY 12/25/22 01/12/23 12/25/22 History prenat.vits,alexandro,pwh-qiio-wbcxf 1 tab PO DAILY 12/25/22 01/12/23 12/25/22 History turmeric root extract 500 mg 500 mg PO DAILY 12/25/22 01/12/23 12/25/22 History capsule vitamin A-vitamin C-vit E-min 1 tab PO DAILY 12/25/22 01/12/23 12/25/22 History tablet amoxicillin 875 mg-potassium 1 tab PO BID 01/12/23 01/12/23 Unknown History clavulanate 125 mg tablet bupropion HCl 300 mg 24 hr tablet, 300 mg PO QAM 01/12/23 01/12/23 Unknown History extended release cetirizine 10 mg tablet 10 mg PO DAILY PRN Allergy Symptoms 01/12/23 01/12/23 Unknown History lactulose 10 gram/15 mL oral 15 ml PO DAILY 01/12/23 01/12/23 Unknown History solution metoprolol succinate 50 mg 50 mg PO DAILY 01/12/23 01/12/23 Unknown History tablet,extended release 24 hr Allergies Allergy/AdvReac Type Severity Reaction Status Date / Time bee venom protein (honey bee) Allergy ALGY-Difficulty Verified 01/12/23 08:19 Breathing cat dander Allergy ALGY-Hives Verified 01/12/23 08:19 PFSH Acute PFSH: Medical History (Updated 01/12/23 @ 11:41 by Ad Ibarra MD) Atrial fibrillation Benign essential HTN CAD (coronary artery disease) Cholelithiasis Chronic kidney disease COPD (chronic obstructive pulmonary disease) Diastolic heart failure Dyslipidemia Hypertension Obstructive sleep apnea Peripheral edema Surgical History (Updated 01/12/23 @ 10:27 by Ad Ibarra MD) History of lobectomy of lung History of PTCA History of resection of small bowel Hx of section Hx of unilateral nephrectomy Family History Father CAD (coronary artery disease), Onset Age: 46 [place] Cancer Dementia Diabetes Mother CAD (coronary artery disease), Onset Age: 82 Diabetes Denies family history of Clotting disorder Chronic kidney disease (CKD) Suicide Anesthesia complication Bleeding disorder Lung disease Stroke Social History Smoking and tobacco status: former smoker Alcohol intake: former Vitals/I&O/Wt Last Vital Signs Temp 97.5 F L 01/12/23 08:07 Pulse 70 01/12/23 10:04 Resp 19 H 01/12/23 09:50 BP 94/58 01/12/23 08:07 Pulse Ox 95 01/12/23 09:50 O2 Del Method 01/12/23 09:50 O2 Flow Rate 5 01/12/23 08:59 FiO2 50 01/12/23 09:50 Weight last 48 hrs Weight 104.326 kg Physical Exam Narrative: General exam is a white female, who will open her eyes briefly to verbal stimuli, perhaps answer 1 question, and quickly fall asleep. She is currently on BiPAP. HEENT: Atraumatic and normocephalic. Pupils equally round. BiPAP is noted Neck is supple no lymphadenopathy thyromegaly Cardiovascular regular rate and rhythm, heart sounds distant, no murmur Lungs bilateral expiratory wheezes Abdomen is soft, obese, nontender. No obvious organomegaly exam is deferred Extremities no cyanosis clubbing or edema, cap refill brisk Skin no rash Neuro no obvious focal deficits, moves all extremities. Data 01/12/23 08:32 01/12/23 08:32 Other Labs: ABG demonstrated pH 7.24, PCO2 of 66, PO2 of 80 on 5 L. She has since been split on BiPAP. LFTs demonstrate an AST of 146, ALT of 199, alk phos of 137. Troponin 39 at baseline Lactic acid 1.6 Calcium 9.1 BNP demonstrates 18,278 Albumin normal at 3.8 Coronavirus testing negative Last cath demonstrated an obtuse marginal that was stented in October 2022. A jailed 80% second diagonal and RCA 50% were also noted EKG today demonstrates normal sinus rhythm, normal axis, poor R wave progression 07/26 echo demonstrates an EF of 70%, 3/4 diastolic dysfunction. Micro: Microbiology 01/12/23 08:32 Blood Culture - Preliminary Blood SPECIMEN COLLECTED 01/12/23 08:34 Blood Culture - Preliminary Blood SPECIMEN COLLECTED A&P Assessment and plan (1) Acute respiratory failure with hypoxia and hypercarbia: Patient presents with acute respiratory failure with hypoxemia and hypercarbia. This is likely multifactorial. She has evidence for acute COPD exacerbation, ac elena systolic heart failure. She also has acute kidney injury, and is on substances which could cause lethargy. Currently she is on of AVAPS settings. Plan on repeating a blood gas after she has been on this for a significant amount of time to see if improvement is occurring. On my last evaluation her level of alertness seem to be improving. (2) Acute metabolic encephalopathy: Likely secondary to hypercarbia. Cannot rule out other causes such as Neurontin in the face of renal failure, renal failure itself. Will check ammonia level Hold other sedating medication (3) JOSE (acute kidney injury): Etiology uncertain Moy has been placed and urine is noted She does appear fluid overloaded so 60 mg Lasix IV x1 is given Hold all anti-inflammatories, NILSON inhibitor currently. Avoid renal toxic medication Renal ultrasound, rule out obstruction Urinalysis has been completed and appears overall negative. Although history of unilateral nephrectomy as noted in the past surgical history there are 2 kidneys on the last CT scan. Wonder if this was a partial resection or an accurate injury Cannot completely rule out cardiorenal syndrome. (4) Transaminitis: Patient with significant transaminitis. Her gallbladder ultrasound is abnormal demonstrating thickened wall. Previous stone seen was not obviously apparent. Fatty liver is noted. Request records from hospitalizations at [place]. Zosyn was initiated as cannot rule out acute cholecystitis role in her current illness. Reevaluate frequently, to determine if surgical consultation will be needed. (5) Acute diastolic heart failure: See below 60 mg Lasix IV x1 (6) Elevated troponin: Patient with markedly elevated BNP Known severe diastolic dysfunction Considering shortness of breath, evidence of elevated filling pressures on echo we will give Lasix 60 mg IV x1. Await echocardiogram formal report (7) COPD with acute exacerbation: Steroids given in the ER. Continue Solu-Medrol 40 mg IV every 12 hours Budesonide twice daily DuoNeb every 4 hours (8) CAD (coronary artery disease): Continue patient's Plavix. Aspirin 81 mg daily Plan History of atrial fibrillation. Consider restarting metoprolol when appropriate from a heart rate standpoint. May initiate 25 mg daily as early as tomorrow. Patient is on full anticoagulation. As potentially other procedures may be warranted we will initiate subcutaneous heparin currently, reevaluating renal function and clinical status to determine whether Lovenox could be used, Eliquis can be resumed, or a heparin drip would be needed in the future. Multiple other medical problems as outlined in past medical history Full code Heparin will suffice for DVT prophylaxis Attestations Medical Necessity Statement*: Will require greater than 2 midnight stay for evaluation and treatment of COPD exacerbation, acute hypercarbic and hypoxic respiratory failure, acute diastolic heart failure, transaminitis Coding Level of Care Code Critical Care >/= 30 minutes Diagnoses Acute respiratory failure with hypoxia and hypercarbia J96.01; J96.02 Acute metabolic encephalopathy G93.41 JOSE (acute kidney injury) N17.9 Transaminitis R74.01 Acute diastolic heart failure I50.31 Elevated troponin R77.8 COPD with acute exacerbation J44.1 CAD (coronary artery disease) I25.10 Time Spent (min) 59
--- NOTE | 2023-01-12 10:25 | PC.PHAR ---
Pharmacy to dose zosyn With the patient's CrCl being >20 @ 20.6, she was indicated for the extended infusion 3.375gm every 8 hours. Will continue to monitor the patient's renal function and make adjustments as needed. Let us know if there is anything else we can help with. Thanks, Adrian Miller, Pharm.D
[2023-01-12 10:37] LABS: Creatine Phosphokinase 190 U/L (26-192)
[2023-01-12 10:38] LABS: Glucose Urine UA Norm (Normal); Ketones Urine Negative (Negative); Urine Appearance Clear (CLEAR); Urine Color Yellow (Yellow); pH Urine 7 (5-7)
[2023-01-12 10:39] LABS: Add Urine Microscopic? YES; Bilirubin Urine Neg (Negative); Blood Urine Neg (Negative); Leukocyte Esterase Urine Negative (Negative); Nitrate Urine Negative (Negative); Protein Urine Trace (Negative); Urobilinogen Urine Neg (Negative)
[2023-01-12 10:54] LABS: Adenovirus Not Detected (NOT DETECT); Chlamydia Pneumoniae Not Detected (NOT DETECT); Coronavirus 229E,HKU1,NL63,OC4 Not Detected (NOT DETECT); Human Metapneumovirus Not Detected (NOT DETECT); Human Rhinovirus/Enterovirus Not Detected (NOT DETECT); Influenza A Not Detected (NOT DETECT); Influenza A H1 Not Detected (NOT DETECT); Influenza A H1-2009 Not Detected (NOT DETECT); Influenza A H3 Not Detected (NOT DETECT); Influenza B Not Detected (NOT DETECT); Mycoplasma Pneumoniae Not Detected (NOT DETECT); Parainfluenza Virus Type 1 Not Detected (NOT DETECT); Parainfluenza Virus Type 2 Not Detected (NOT DETECT); Parainfluenza Virus Type 3 Not Detected (NOT DETECT); Parainfluenza Virus Type 4 Not Detected (NOT DETECT); Respiratory Syncytial Virus A Not Detected (NOT DETECT); Respiratory Syncytial Virus B Not Detected (NOT DETECT); SARS-COV-2 Not Detected (NOT DETECT)
[2023-01-12 10:59] LABS: Add Urine Culture? No; Amorphous Sediment Urine 2+ /hpf; Calcium Oxalate Crystals Urine 0-4 /hpf; Hyaline Casts Urine 15-25 /lpf; RBC Urine 0-4 /hpf (0-2); Squamous Epithelial Cell Urine RARE /hpf (0-5); WBC Urine RARE /hpf (0-5)
[2023-01-12 11:03] LABS: Troponin 5 2HR 30.66 ng/L (0-10)
[2023-01-12 11:08] LABS: ABG PH Result 7.21 (7.35-7.45); Arterial Blood Gas Hematocrit 41.3 % (37-47); Base Excess ABG 1.2 mmol/L (-2.0-2.0); Blood Gas Operator Identificat AMH; Blood Gas Sample Site Brachial, left; Blood Gas Sample Type Arterial; HCO3 ABG 31.3 mmol/L (22-26); Oxygen Device BIPAP; PO2 ABG 61.1 mmHg (80.0-100.0)
[2023-01-12 11:09] LABS: ABG PCO2 78.1 mmHg (35-45)
[2023-01-12] MEDS: piperacillin-tazobactam 3.375 GM in sodium chloride 0.9% (plus) 50 ML IV ×2 (11:33→17:33)
[2023-01-12] MEDS: FUROsemide 10 mg/mL SDV 10mL 60 MG IVP (11:43)
[2023-01-12 13:31] LABS: Procalcitonin 0.44 ng/mL (0-0.5)
[2023-01-12 14:10] LABS: ABG PCO2 45.7 mmHg (35-45); ABG PH Result 7.41 (7.35-7.45); Arterial Blood Gas Hematocrit 43.4 % (37-47); Base Excess ABG 3.9 mmol/L (-2.0-2.0); Blood Gas Allen Test Pos; Blood Gas Operator Identificat GD; Blood Gas Sample Site Radial, right; Blood Gas Sample Type Arterial; Carboxyhemoglobin 2.1 %THgb (0.4-20.1); HCO3 ABG 29.2 mmol/L (22-26); Ionized Calcium Level - ABG 1.2 mmol/L (1.1-1.4); Methemoglobin 0.8 % (0.4-1.5); Oxygen Device BIPAP; Oxygen Saturation ABG 94.8; PO2 ABG 67.4 mmHg (80.0-100.0); Potassium Level - ABG 4.1 mmol/L (3.5-5.0); Total Hemoglobin 14.2 g/dL (12-16)
--- NOTE | 2023-01-12 14:21 | PC.NURSE ---
Patient arrived to ICU from ER. Patient currently unable to answer a lot of questions due to CO2 levels currently per Dr. Ibarra. Patient currently on bipap resting with eyes closed.
[2023-01-12] MEDS: heparin 5,000 unit/mL INJ 1 mL 5000 UNIT SUBCUT (14:28)
[2023-01-12] MEDS: insulin lispro 100 unit/1 mL SUBCUT ×2 (14:37→17:37)
[2023-01-12 15:21] LABS: Troponin 5 6HR 26.23 ng/L (0-10)
[2023-01-12 16:32] LABS: Ammonia 83 umol/L (11-51)
--- NOTE | 2023-01-12 16:39 | ECG_ITS ---
[facility] Test Date: 2023-01-12 Pat Name: Katie Andrews Department: Room: ICU10 Gender: Female Organizational Effectiveness Director: : 1955 Requested By: Jeffy Dhaliwal Order Number: [id number] Reading MD: Alberta Archer M.D. Measurements Intervals [place] Rate: 58 P: 47 MO: 142 QRS: 7 QRSD: 80 T: -72 QT: 494 QTc: 487 Interpretive Statements SINUS BRADYCARDIA SEPTAL MYOCARDIAL INFARCTION , PROBABLY OLD [40+ ms Q WAVE IN V1/V2] MODERATE T-WAVE ABNORMALITY, CONSIDER ANTERIOR ISCHEMIA [-0.1+ mV T-WAVE IN V3/V4] Compared to ECG 01/12/2023 11:54:32 T-wave abnormality now present Possible ischemia now present Myocardial infarct finding still present Electronically Signed On 01-12-2023 23:51:13 CDT by Alberta Archer M.D. [id number]
[2023-01-12 17:21] LABS: Glucose Point of Care 224 mg/dL (70-110)
[2023-01-12 17:22] LABS: Glucose Point of Care 245 mg/dL (70-110)
[2023-01-12] MEDS: budesonide 0.5 mg/2 mL Neb INHALATION (19:56)
--- NOTE | 2023-01-12 20:04 | US_ITS ---
WS: [id number] RENAL ULTRASOUND REASON FOR EXAM: renal failure elevated BUN/creatinine COMPARISON: None available. ORDER DATE: 01/12/2023 10:07 PM TECHNIQUE: Grayscale and Doppler ultrasound examination of the kidneys. FINDINGS: Right kidney: Right kidney measures 11.8 cm x 5.4 cm x 5.3 cm. Cortical width 15 mm Left kidney: Left kidney measures 12.1 cm x 6.6 cm x 4.6 cm. Cortical width 14 mm There is a 12 mm exophytic cyst in the upper pole of the left kidney A Moy catheter decompresses the urinary bladder US/US renal BI with PV bladder IMPRESSION: Unremarkable study.
--- NOTE | 2023-01-12 21:00 | PC.NURSE ---
Pt is now rousable to verbal stimuli. Removed BIPAP per pt request to swab her mouth. Pt answered all orientation questions correctly. At this time pt is agreeable to continue to wear the BIPAP for a couple more hours .
[2023-01-12 22:14] LABS: Glucose Point of Care 192 mg/dL (70-110)
[2023-01-13] VITALS (25 sets, daily range): BP systolic 108–152; BP diastolic 59–85; PULSE 47–72; RESP 12–24; TEMP 36.3–36.6; O2SAT 91–97
[2023-01-13] MEDS: heparin 5,000 unit/mL INJ 1 mL 5000 UNIT SUBCUT (01:05)
[2023-01-13] MEDS: piperacillin-tazobactam 3.375 GM in sodium chloride 0.9% (plus) 50 ML IV ×3 (02:13→18:26)
[2023-01-13] MEDS: acetaminophen 325 mg Tablet 650 MG PO ×2 (02:18→16:18)
[2023-01-13] MEDS: ipratropium-albuterol 3 mL Neb INHALATION ×6 (03:01→23:36)
[2023-01-13 05:04] LABS: Basophils % 0.1 %; Hematocrit 40.3 % (37.0-47.0); Hemoglobin 12.8 g/dL (11.5-15.3); Lymphocytes # 0.8 10^3/uL (0.8-4.8); Lymphocytes % 6.8 %; Mean Corpuscular HGB Conc 31.8 g/dL (30.0-36.0); Mean Corpuscular Hemoglobin 31.1 pg (28.0-34.0); Mean Corpuscular Volume 97.8 fl (81-99); Mean Platelet Volume 10.2 fL (7.4-10.4); Monocytes # 0.7 10^3/uL (0.2-0.9); Monocytes % 6.1 %; Neutrophils # 9.77 10^3/uL (1.8-7.7); Neutrophils % 85.9 %; Nucleated Red Blood Cells % 0.3 %; Platelet Count 200 10^3/cmm (130-400); Red Blood Count 4.12 10^6/uL (4.1-5.3); Red Cell Distribution Width 14.6 % (12.1-15.1); White Blood Count 11.4 10^3/uL (4.0-10.0)
[2023-01-13] MEDS: clopidogrel 75 mg Tablet PO (05:16)
[2023-01-13 05:28] LABS: Alanine Aminotransferase 166 U/L (0-33); Albumin Level 3.5 g/dL (3.5-5.2); Alkaline Phosphatase 118 U/L (35-105); Anion Gap 16.8 (5-19); Aspartate Amino Transferase 83 U/L (0-32); Blood Urea Nitrogen 45 mg/dL (8-23); Calcium 8.5 mg/dL (8.5-10.5); Carbon Dioxide 31 mmol/L (22-29); Chloride 98 mmol/L (98-107); Glomerular Filtration Rate 26.5 mL/min (90-130); Glucose 176 mg/dL (65-115); Magnesium 2.1 mg/dL (1.7-2.3); Osmolality Calculated 310 mOsm/kg (285-295); Potassium 3.8 mmol/L (3.5-5.1); Sodium 142 mmol/L (136-145); Total Bilirubin 0.5 mg/dL (0.15-1.2); Total Protein 6.5 g/dL (6.6-8.7)
--- NOTE | 2023-01-13 06:57 | PM.PN ---
Subjective Subjective: Awake and alert this morning. No chest pain. Reports she has had increasing shortness of breath 3 days prior to arrival here. She is also recently been on antibiotics for her gallbladder from [place]. No diarrhea overnight. She denies any abdominal pain. She wonders if she can eat this morning. No chest pain. Medications: Reviewed: Yes Vitals/I&O/Wt Last Vital Signs Temp 97.4 F L 01/13/23 04:00 Pulse 51 L 01/13/23 06:00 Resp 12 01/13/23 06:00 BP 152/85 01/13/23 06:00 Pulse Ox 95 01/13/23 06:00 O2 Del Method 01/13/23 06:00 O2 Flow Rate 3 01/13/23 06:00 FiO2 35 01/13/23 04:00 01/12/23 01/12/23 01/13/23 14:59 22:59 06:59 Intake Total 50 / 50 450 / 500 200 / 700 Output Total 1300 / 1300 1600 / 2900 900 / 3800 Balance -1250 / -1250 -1150 / -2400 -700 / -3100 Weight last 48 hrs Weight 107.275 kg Weight 104.326 kg Physical Exam Narrative: General exam no distress, conversant Neck is supple no lymphadenopathy thyromegaly Cardiovascular regular rate and rhythm, heart sounds distant, no murmur Lungs bilateral expiratory wheezes Abdomen is soft, obese, nontender. No obvious organomegaly exam Moy Extremities no cyanosis clubbing or edema, cap refill brisk Urinary Catheter Management: Moy: Cath Placed During This Visit: yes Reason for Continuing Indwelling Catheter: Accurate Measurement of Urinary Output in Critically Ill Patients Urinary Catheter Date of Insertion: 01/12/23 Data 01/13/23 04:25 01/13/23 04:25 Micro: Microbiology 01/12/23 08:32 Blood Culture - Preliminary Blood SPECIMEN COLLECTED 01/12/23 08:34 Blood Culture - Preliminary Blood SPECIMEN COLLECTED A&P Assessment and plan (1) Acute respiratory failure with hypoxia and hypercarbia: Patient presents with acute respiratory failure with hypoxemia and hypercarbia. This is likely multifactorial. She has evidence for acute COPD exacerbation, acute systolic heart failure. She also has acute kidney injury, and is on substances which could cause lethargy. Much improved this morning. (2) Acute metabolic encephalopathy: Likely secondary to hypercarbia. Cannot rule out other causes such as Neurontin in the face of renal failure, renal failure itself. Ammonia level was slightly high. Repeat this tomorrow morning Hold other sedating medication (3) JOSE (acute kidney injury): Etiology uncertain Moy has been placed and urine is noted She does appear fluid overloaded so 60 mg Lasix IV x1 is given Hold all anti-inflammatories, NILSON inhibitor currently. Avoid renal toxic medication Renal ultrasound pending Urinalysis has been completed and appears overall negative. Although history of unilateral nephrectomy as noted in the past surgical history there are 2 kidneys on the last CT scan. Wonder if this was a partial resection or an accurate injury Cannot completely rule out cardiorenal syndrome. Renal function is significantly improving with diuresis. 40 mg of Lasix IV x1 today. (4) Transaminitis: Patient with significant transaminitis. Her gallbladder ultrasound is abnormal demonstrating thickened wall. Previous stone seen was not obviously apparent. Fatty liver is noted. Request records from hospitalizations at [place]. She was recently on Augmentin for this Zosyn was initiated as cannot rule out acute cholecystitis role in her current illness. She denies any right upper quadrant pain currently and LFTs are improving Ammonia was high, but she is mentally clear this morning. Recheck ammonia level tomorrow. If still elevated consider initiation of lactulose (5) Acute diastolic heart failure: Improved after Lasix Repeat dose of Lasix today 40 mg IV x1 (6) Elevated troponin: Patient with markedly elevated BNP Known severe diastolic dysfunction Received Lasix IV x1 yesterday, 60 mg. Repeat dose 40 mg today. Echo demonstrates preserved EF, LVH, mild to moderate tricuspid regurgitation and moderate pulmonary hypertension (7) COPD with acute exacerbation: Discontinue IV steroids, changed to prednisone Budesonide twice daily DuoNeb every 4 hours (8) CAD (coronary artery disease): Continue patient's Plavix. Aspirin 81 mg daily Hold beta-home currently. Patient is bradycardic Plan RecentHistory of atrial fibrillation. Hold metoprolol as she is bradycardic. Her apixaban as surgical procedures are unlikely HIV. On Odefsey reportedly for quite some time. Reports no viral load recently. Hold currently considering renal, liver function. Multiple other medical problems as outlined in past medical history Full code Heparin will suffice for DVT prophylaxis Transfer out of ICU Attestations Medical Necessity Statement*: Needs continued hospital stay for close follow-up of acute kidney injury, respiratory failure and acute COPD exacerbation. Diagnoses Acute respiratory failure with hypoxia and hypercarbia J96.01; J96.02 Acute metabolic encephalopathy G93.41 JOSE (acute kidney injury) N17.9 Transaminitis R74.01 Acute diastolic heart failure I50.31 Elevated troponin R77.8 COPD with acute exacerbation J44.1 CAD (coronary artery disease) I25.10 Time Spent (min) 29
[2023-01-13] MEDS: budesonide 0.5 mg/2 mL Neb INHALATION ×2 (07:29→20:06)
[2023-01-13 07:50] LABS: Glucose Point of Care 193 mg/dL (70-110)
[2023-01-13] MEDS: FUROsemide 10 mg/mL SDV 4mL 40 MG IVP (07:59)
[2023-01-13] MEDS: insulin lispro 100 unit/1 mL SUBCUT ×3 (08:00→18:26)
[2023-01-13] MEDS: predniSONE 20 mg Tablet 40 MG PO (08:01)
[2023-01-13] MEDS: pantoprazole DR 40 mg Tablet PO (08:01)
[2023-01-13] MEDS: sertraline 100 mg Tablet PO (08:01)
[2023-01-13] MEDS: apixaban 5 mg Tablet PO ×2 (08:01→22:54)
[2023-01-13] MEDS: isosorbide mononitrate ER 60 mg Tablet PO (08:01)
[2023-01-13 10:59] LABS: Glucose Point of Care 354 mg/dL (70-110)
[2023-01-13 16:51] LABS: Glucose Point of Care 379 mg/dL (70-110)
[2023-01-13 20:59] LABS: Glucose Point of Care 319 mg/dL (70-110)
[2023-01-14] VITALS (8 sets, daily range): BP systolic 145–168; BP diastolic 67–83; PULSE 58–72; RESP 16–18; TEMP 36.4–36.7; O2SAT 91–97
[2023-01-14] MEDS: piperacillin-tazobactam 3.375 GM in sodium chloride 0.9% (plus) 50 ML IV (02:38)
[2023-01-14] MEDS: ipratropium-albuterol 3 mL Neb INHALATION ×3 (03:00→11:45)
[2023-01-14 06:23] LABS: Basophils % 0.2 %; Eosinophils % 0.1 %; Hematocrit 39.7 % (37.0-47.0); Hemoglobin 12.5 g/dL (11.5-15.3); Lymphocytes # 1.3 10^3/uL (0.8-4.8); Lymphocytes % 10.5 %; Mean Corpuscular HGB Conc 31.5 g/dL (30.0-36.0); Mean Corpuscular Hemoglobin 30.9 pg (28.0-34.0); Mean Platelet Volume 10.5 fL (7.4-10.4); Monocytes # 0.9 10^3/uL (0.2-0.9); Monocytes % 7.7 %; Neutrophils # 9.83 10^3/uL (1.8-7.7); Neutrophils % 80.4 %; Nucleated Red Blood Cells % 0.2 %; Platelet Count 205 10^3/cmm (130-400); Red Blood Count 4.05 10^6/uL (4.1-5.3); Red Cell Distribution Width 14.6 % (12.1-15.1); White Blood Count 12.2 10^3/uL (4.0-10.0)
[2023-01-14] MEDS: isosorbide mononitrate ER 60 mg Tablet PO (06:23)
[2023-01-14] MEDS: clopidogrel 75 mg Tablet PO (06:23)
[2023-01-14] MEDS: sertraline 100 mg Tablet PO (06:23)
[2023-01-14 06:46] LABS: Alanine Aminotransferase 155 U/L (0-33); Albumin Level 3.5 g/dL (3.5-5.2); Alkaline Phosphatase 101 U/L (35-105); Blood Urea Nitrogen 42 mg/dL (8-23); Calcium 9.1 mg/dL (8.5-10.5); Carbon Dioxide 32 mmol/L (22-29); Chloride 102 mmol/L (98-107); Globulin 2.9 g/dL (1.3-4.6); Glomerular Filtration Rate 45.1 mL/min (90-130); Glucose 158 mg/dL (65-115); Magnesium 2.2 mg/dL (1.7-2.3); Osmolality Calculated 312 mOsm/kg (285-295); Sodium 144 mmol/L (136-145); Total Bilirubin 0.4 mg/dL (0.15-1.2); Total Protein 6.4 g/dL (6.6-8.7)
[2023-01-14 06:46] LABS: Glucose Point of Care 159 mg/dL (70-110)
[2023-01-14 07:05] LABS: Anion Gap 13.8 (5-19); Aspartate Amino Transferase 55 U/L (0-32); Potassium 3.8 mmol/L (3.5-5.1)
[2023-01-14] MEDS: budesonide 0.5 mg/2 mL Neb INHALATION (07:41)
[2023-01-14 08:28] LABS: Ammonia 32 umol/L (11-51)
[2023-01-14] MEDS: insulin lispro 100 unit/1 mL SUBCUT (08:52)
--- NOTE | 2023-01-14 09:38 | PM.DCS ---
Discharge Providers Date of Admission: 01/12/23 13:16 Date of Discharge: January 14, 2023 Attending Provider at Admission: Ad Ibarra MD Attending Provider at Discharge: Ad Ibarra MD Primary Care Provider: Alexa Ayers APN Diagnoses at Discharge Discharge Diagnosis (1) Acute respiratory failure with hypoxia and hypercarbia: Status: Acute (2) Acute metabolic encephalopathy: Status: Acute (3) JOSE (acute kidney injury): Status: Acute (4) Transaminitis: Status: Acute (5) Acute diastolic heart failure: Status: Acute (6) Elevated troponin: Status: Acute (7) COPD with acute exacerbation: Status: Acute (8) CAD (coronary artery disease): Status: Acute Reason for Visit Reason for Visit: states entire body pain Hospital Course Hospital Course Katie is a 67-year-old white female who presented to the emergency department with shortness of breath. She reports this was going on for 3 days. There was concern of COPD exacerbation. Acute kidney injury was present as well with creatinine over 3. She had evidence of acute diastolic congestive heart failure. An echo was performed which demonstrated preserved EF, pulmonary hypertension as expected. She was diuresed with Lasix. NILSON inhibitor, anti-inflammatories were held. Of note it appears she was on both Celebrex and meloxicam. Beta-home was held secondary to bradycardia, mid 40s to mid 50s. IV steroids were given, breathing treatments. With this she was able to wean off BiPAP she was initially on for hypoxic and hypercarbic respiratory failure. Renal function improved. She was able to move out of the ICU on the and by the she was on her home oxygen about, able to ambulate the halls. She also had significant transaminitis, thought to be secondary to hepatic congestion. Cannot completely rule out HIV medication as a cause of transaminitis. When she restarts this, liver function will be checked with her primary care provider as well as creatinine. She will follow-up in 3 to 5 days with primary care provider with a CMP. She will also follow-up with cardiology in 7 to 10 days for her heart failure. She was told to follow a low-sodium diet, weigh daily and report any significant weight gain, and take all medicine as prescribed. As there was concern about gallbladder disease, which is already being followed by [facility], encouraged her to finish up her Augmentin prescription from their and continue to follow up with them regarding her gallbladder. She had no gallbladder symptoms while in the hospital, with no nausea or abdominal discomfort. She was given an opportunity to ask questions and agreed with the plan. Physical Exam Narrative: General exam no distress Neck is supple Cardiovascular regular rate and rhythm Lungs clear, decreased breath sounds bilaterally Abdomen is soft positive bowel sounds, obese, nontender Extremity no cyanosis clubbing or edema Urinary Catheter Management: Moy: Cath Placed During This Visit: yes Reason for Continuing Indwelling Catheter: Accurate Measurement of Urinary Output in Critically Ill Patients Urinary Catheter Date of Insertion: 01/12/23 Discharge Data Studies Completed and Pending Completed Studies During Hospitalization Category Date Time Status XR chest 1V portable [id number] Stat Exams 01/12/23 08:10 Completed CV. echo complete* [id number] Stat Ultrasound 01/12/23 10:19 Completed US gall bladder [id number] Stat Ultrasound 01/12/23 09:22 Completed US renal BI with PV bladder Routine Ultrasound 01/12/23 20:04 Completed Pending at discharge Category Date Time Status Blood Culture Stat Lab 01/12/23 08:32 Results Radiology Impressions Chest X-Ray 01/12/23 08:10 IMPRESSION: Unremarkable frontal portable chest x-ray. Gallbladder Ultrasound 01/12/23 09:22 IMPRESSION: 1. Markedly abnormal gallbladder. Advanced acute cholecystitis. Diffuse wall thickening with nonshadowing soft tissue in the gallbladder which may be tumefactive sludge versus neoplasm. On the prior study there was a possible gallstone noted near the gallbladder fossa. No gallstone identified today. Stone could be entrapped near the gallbladder neck or external to the gallbladder depending on the patient's presentation. Surgical evaluation is recommended. 2. No intrahepatic bile duct dilatation. 3. Mild hepatic steatosis and possible cirrhosis. Renal Ultrasound 01/12/23 20:04 IMPRESSION: Unremarkable study. Laboratory Results WBC 12.2 10^3/uL (4.0-10.0) H 01/14/23 06:05 RBC 4.05 10^6/uL (4.1-5.3) L 01/14/23 06:05 Hgb 12.5 g/dL (11.5-15.3) 01/14/23 06:05 Hct 39.7 % (37.0-47.0) 01/14/23 06:05 MCV 98.0 fl (81-99) 01/14/23 06:05 MCH 30.9 pg (28.0-34.0) 01/14/23 06:05 MCHC 31.5 g/dL (30.0-36.0) 01/14/23 06:05 RDW 14.6 % (12.1-15.1) 01/14/23 06:05 Plt Count 205 10^3/cmm (130-400) 01/14/23 06:05 MPV 10.5 fL (7.4-10.4) H 01/14/23 06:05 Neut % (Auto) 80.4 % 01/14/23 06:05 Lymph % (Auto) 10.5 % 01/14/23 06:05 [place] % (Auto) 7.7 % 01/14/23 06:05 Eos % (Auto) 0.1 % 01/14/23 06:05 Baso % (Auto) 0.2 % 01/14/23 06:05 Neut # (Auto) 9.83 10^3/uL (1.8-7.7) H 01/14/23 06:05 Lymph # (Auto) 1.3 10^3/uL (0.8-4.8) 01/14/23 06:05 [place] # (Auto) 0.9 10^3/uL (0.2-0.9) 01/14/23 06:05 Eos # (Auto) 0.0 10^3/uL (0.0-0.8) 01/14/23 06:05 Baso # (Auto) 0.0 10^3/uL (0.0-0.1) 01/14/23 06:05 Nucleated RBC % (auto) 0.2 % 01/14/23 06:05 Nucleated RBCs # 0.0 /100WBC 01/14/23 06:05 Specimen Type Arterial 01/12/23 13:55 Sample Site Radial, right 01/12/23 13:55 ABG pH 7.41 (7.35-7.45) 01/12/23 13:55 ABG pCO2 45.7 mmHg (35-45) H 01/12/23 13:55 ABG pO2 67.4 mmHg (80.0-100.0) L 01/12/23 13:55 ABG HCO3 29.2 mmol/L (22-26) H 01/12/23 13:55 ABG O2 Saturation 94.8 01/12/23 13:55 ABG Base Excess 3.9 mmol/L (-2.0-2.0) H 01/12/23 13:55 Eddie Test Pos 01/12/23 13:55 A-a O2 Gradient 12.0 mmHg (5-10) H 01/12/23 13:55 Hematocrit 43.4 % (37-47) 01/12/23 13:55 Hgb O2 Saturation 92.0 % (95-100) L 01/12/23 13:55 Carboxyhemoglobin 2.1 %THgb (0.4-20.1) 01/12/23 13:55 Methemoglobin 0.8 % (0.4-1.5) 01/12/23 13:55 Total Hemoglobin 14.2 g/dL (12-16) 01/12/23 13:55 Sodium 138.0 mmol/L (131-143) 01/12/23 13:55 Potassium 4.1 mmol/L (3.5-5.0) 01/12/23 13:55 Glucose 215.0 mg/dL (70-115) H 01/12/23 13:55 Ionized Calcium 1.2 mmol/L (1.1-1.4) 01/12/23 13:55 O2 Delivery Device Bipap 01/12/23 13:55 O2 Liters/Min 5.0 % 01/12/23 08:29 FiO2 30.0 % 01/12/23 13:55 PEEP 8.0 cmH20 01/12/23 13:55 Systems Tester ID Gd 01/12/23 13:55 Sodium 144 mmol/L (136-145) 01/14/23 06:05 Potassium 3.8 mmol/L (3.5-5.1) 01/14/23 06:05 Chloride 102 mmol/L (98-107) 01/14/23 06:05 Carbon Dioxide 32 mmol/L (22-29) H 01/14/23 06:05 Anion Gap 13.8 (5-19) 01/14/23 06:05 BUN 42 mg/dL (8-23) H 01/14/23 06:05 Creatinine 1.2 mg/dL (0.5-0.9) H 01/14/23 06:05 GFR Calculation 45.1 mL/min (90-130) L 01/14/23 06:05 Glucose 158 mg/dL (65-115) H 01/14/23 06:05 POC Glucose 159 mg/dL (70-110) H 01/14/23 06:38 Calculated Osmolality 312 mOsm/kg (285-295) H 01/14/23 06:05 Lactic Acid 1.6 mmol/L (0.5-2.2) 01/12/23 08:32 Calcium 9.1 mg/dL (8.5-10.5) 01/14/23 06:05 Magnesium 2.2 mg/dL (1.7-2.3) 01/14/23 06:05 Total Bilirubin 0.4 mg/dL (0.15-1.2) 01/14/23 06:05 AST 55 U/L (0-32) H 01/14/23 06:05 ALT 155 U/L (0-33) H 01/14/23 06:05 Alkaline Phosphatase 101 U/L (35-105) 01/14/23 06:05 Ammonia 32 umol/L (11-51) 01/14/23 07:58 Creatine Kinase 190 U/L (26-192) 01/12/23 08:32 Troponin T Baseline 39 ng/L (0-10) H 01/12/23 08:32 Troponin T 120 Minute 30.66 ng/L (0-10) H 01/12/23 10:34 Delta Troponin T -8.34 ABS# (0-10) L 01/12/23 10:34 Troponin T Hi Sens 6Hr 26.23 ng/L (0-10) H 01/12/23 14:45 Troponin T Hi Sens 6Hr Delta -12.77 ng/L (0-12) L 01/12/23 14:45 NT-Pro-B Natriuret Pep 46826 pg/mL (0-125) H 01/12/23 08:32 Total Protein 6.4 g/dL (6.6-8.7) L 01/14/23 06:05 Albumin 3.5 g/dL (3.5-5.2) 01/14/23 06:05 Globulin 2.9 g/dL (1.3-4.6) 01/14/23 06:05 Procalcitonin 0.44 ng/mL (0-0.5) 01/12/23 08:32 Urine Color Yellow (Yellow) 01/12/23 10:25 Urine Appearance Clear (CLEAR) 01/12/23 10:25 Urine pH 7 (5-7) 01/12/23 10:25 Ur Specific [place] 1.010 (1.005-1.030) 01/12/23 10:25 Urine Protein Trace (Negative) 01/12/23 10:25 Urine Glucose (UA) Norm (Normal) 01/12/23 10:25 Urine Ketones Negative (Negative) 01/12/23 10:25 Urine Blood Neg (Negative) 01/12/23 10:25 Urine Nitrate Negative (Negative) 01/12/23 10:25 Urine Bilirubin Neg (Negative) 01/12/23 10:25 Urine Urobilinogen Neg mg/dL (Negative) 01/12/23 10:25 Ur Leukocyte Esterase Negative (Negative) 01/12/23 10:25 Urine RBC 0-4 /hpf (0-2) H 01/12/23 10:25 Urine WBC Rare /hpf (0-5) 01/12/23 10:25 Ur Squamous Epith Cells Rare /hpf (0-5) 01/12/23 10:25 Calcium Oxalate Crystal 0-4 /hpf H 01/12/23 10:25 Amorphous Sediment 2+ /hpf 01/12/23 10:25 Urine Bacteria None /hpf (NONE) 01/12/23 10:25 Hyaline Casts 15-25 /lpf H 01/12/23 10:25 Coronavirus 229E (PCR) Not detected (NOT DETECT) 01/12/23 08:50 SARS-CoV-2 (PCR) Not detected (NOT DETECT) 01/12/23 08:50 Vitals Last Vital Signs Temp 98.0 F 01/14/23 08:00 Pulse 62 01/14/23 08:00 Resp 17 01/14/23 08:00 BP 168/67 01/14/23 08:00 Pulse Ox 91 01/14/23 08:00 O2 Del Method Nasal Cannula 01/14/23 08:00 O2 Flow Rate 2 01/14/23 08:00 FiO2 35 01/13/23 04:00 Discharge Plan Discharge Patient Disposition: Home Condition: Stable Prescriptions: New prednisone 20 mg Tablet 40 mg PO DAILY Qty: 6 0RF furosemide 40 mg Tablet 60 mg PO DAILY@0800 Qty: 45 0RF Continued Eliquis 5 mg tablet 5 mg PO BID aripiprazole [Abilify] 15 mg tablet 15 mg PO QAM sertraline 100 mg tablet 100 mg PO QAM atorvastatin 80 mg tablet 80 mg PO BEDTIME Odefsey 200-25-25 mg tablet 1 tab PO BEDTIME nitroglycerin 0.4 mg tablet, sublingual 0.4 mg sublingual Q5M PRN (Reason: chest pain) albuterol sulfate 90 mcg/actuation HFA aerosol inhaler 2 puff inhalation QID PRN (Reason: shortness of breath or wheezing) hydrocodone-acetaminophen 5-325 mg tablet 1 tab PO .EVERY 4-6 HOURS MDD 3 tabs PRN (Reason: Pain) fluticasone propionate 50 mcg/actuation spray,suspension 1 - 2 spray INTRANASAL DAILY metformin 500 mg tablet 500 mg PO DAILY Rx Instructions: With breakfast Trelegy Ellipta 100-62.5-25 mcg blister with device 1 inh INHALATION DAILY carica papaya [Papaya Enzyme] Tablet 1 tab PO DAILY ondansetron HCl 4 mg tablet 4 mg PO Q4H PRN (Reason: Nausea And Vomiting) clopidogrel [Plavix] 75 mg tablet 75 mg PO QAM aspirin 325 mg Tablet 325 mg PO DAILY PRN (Reason: Pain) isosorbide mononitrate 60 mg Tablet Extended Release 24 Hr 60 mg PO QAM iron 18 mg Tablet 18 mg PO DAILY Eye Health Tablet 1 tab PO DAILY Vitamin Tablet 1 tab PO DAILY cholecalciferol (vitamin D3) 25 mcg (1,000 unit) Tablet 25 mcg PO DAILY turmeric root extract 500 mg Capsule 500 mg PO DAILY cetirizine 10 mg tablet 10 mg PO DAILY PRN (Reason: Allergy Symptoms) amoxicillin-pot clavulanate 875-125 mg tablet 1 tab PO BID Rx Instructions: for 10 days (ext med history shows filled 12/31/22) bupropion HCl 300 mg tablet extended release 24 hr 300 mg PO QAM lactulose 10 gram/15 mL solution 15 ml PO DAILY Discontinued gabapentin 300 mg capsule 600 mg PO TID furosemide 40 mg tablet 40 mg PO QAM meloxicam 15 mg Tablet 15 mg PO DAILY lisinopril 10 mg Tablet 10 mg PO DAILY celecoxib 100 mg Capsule 100 mg PO DAILY metoprolol succinate 50 mg tablet extended release 24 hr 50 mg PO DAILY Discharge Orders: Discharge Order (Routine); Ordered 01/14/23 Ordered By: Ad Ibarra Referrals: Alberta Archer MD [Physician] - 1 week (or Ingrid Vázquez Follow-up acute diastolic heart failure) Ayers,CECY Liu [Primary Care Provider] - 4-7 days (CMP on follow-up) Patient Instructions: Opioid Safety Activity Restrictions/Additional Instructions: Low-salt diet. Check weight daily, morning. If increases more than 3 pounds in 2 days, call primary care provider. CMP on follow-up with primary care provider 3 to 5 days Note your increased dose of Lasix Note that there Neurontin has been discontinued currently. This is secondary to lethargy on admission Resume your 2 L of oxygen Finish out 3 days of prednisone. Finish out your Augmentin prescription from [facility], and follow-up with them regarding your gallbladder Return for any concerns Lisinopril was held secondary to elevated creatinine. Consideration to restart this as an outpatient. Your metoprolol was discontinued secondary to heart rates in the 40s on admission. 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 for reevaluation Stop smoking Patient's Health Concerns: Shortness of breath Assessment: COPD exacerbation Acute diastolic congestive heart failure Plan of Treatment: Increase Lasix Recheck electrolytes 3 to 5 days Medicine adjustments as above Discharge Attestations Time Spent in Discharge Care*: greater than 30 min Quality Metrics Clinical Quality Measures [ No reported AMI, CVA or VTE this stay] Coding Level of Care Code 77244 Total time (in minutes) for Discharge: 37 Diagnoses Acute respiratory failure with hypoxia and hypercarbia J96.01; J96.02 Acute metabolic encephalopathy G93.41 JOSE (acute kidney injury) N17.9 Transaminitis R74.01 Acute diastolic heart failure I50.31 Elevated troponin R77.8 COPD with acute exacerbation J44.1 CAD (coronary artery disease) I25.10 Time Spent (min) 37
[2023-01-14] MEDS: FUROsemide 40 mg Tablet 60 MG PO (09:55)
[2023-01-14] MEDS: predniSONE 20 mg Tablet 40 MG PO (09:57)
[2023-01-14] MEDS: pantoprazole DR 40 mg Tablet PO (09:57)
[2023-01-14] MEDS: apixaban 5 mg Tablet PO (09:57)
[2023-01-14] MEDS: acetaminophen 325 mg Tablet 650 MG PO (09:58)
== END 2023-01-14 11:50 | disposition home or self-care (01) | DRG 291 ==
LOC: ER 08:15 → ICU 12:25 → MEDSURG 01-13 14:37
PROVIDERS: Hospitalist; Admitting Provider Internal Medicine; Emergency Provider Family Medicine; PCP Nurse Practitioner Family; Visit Provider Internal Medicine
DX: I13.0 Hypertensive heart and chronic kidney disease with heart failure and stage 1 through stage 4 chronic kidney disease, or unspecified chronic kidney disease (principal); G93.41 Metabolic encephalopathy; I50.31 Acute diastolic (congestive) heart failure; J96.22 Acute and chronic respiratory failure with hypercapnia; J96.21 Acute and chronic respiratory failure with hypoxia; J44.1 Chronic obstructive pulmonary disease with (acute) exacerbation; N17.9 Acute kidney failure, unspecified; K81.0 Acute cholecystitis; N18.9 Chronic kidney disease, unspecified; I27.20 Pulmonary hypertension, unspecified; Z99.81 Dependence on supplemental oxygen; Z79.01 Long term (current) use of anticoagulants; Z79.51 Long term (current) use of inhaled steroids; Z79.891 Long term (current) use of opiate analgesic; Z79.84 Long term (current) use of oral hypoglycemic drugs; Z79.02 Long term (current) use of antithrombotics/antiplatelets; I25.10 Atherosclerotic heart disease of native coronary artery without angina pectoris; Z95.5 Presence of coronary angioplasty implant and graft; Z87.891 Personal history of nicotine dependence; Z90.5 Acquired absence of kidney; Z90.49 Acquired absence of other specified parts of digestive tract; Z90.2 Acquired absence of lung [part of]; G47.33 Obstructive sleep apnea (adult) (pediatric); E78.5 Hyperlipidemia, unspecified; I48.91 Unspecified atrial fibrillation; T82.897D Other specified complication of cardiac prosthetic devices, implants and grafts, subsequent encounter; Y71.8 Miscellaneous cardiovascular devices associated with adverse incidents, not elsewhere classified
CPT/HCPCS: 36415; 36416; 36600; 71045; 76705; 76770; 76857; 80051; 80053; 81001; 82140; 82330; 82550; 82803; 82805; 82962; 83605; 83735; 83880; 84145; 84484; 85025; 87040; 87635; 93005; 93306; 94640; 94660; 94762; 96365; 96372; 96375; 96376; 99291; J1100; J1644; J1815; J1940; J2543; J2920; J7512; J7626

== ENCOUNTER → 2023-03-18 11:40 | Outpatient (BNVA) | payer MEDICARE, MEDICAID, SELFPAY | PROVIDERS: PCP Nurse Practitioner Family; Visit Provider Internal Medicine Cardiovascular Disease | DX: I25.10 Atherosclerotic heart disease of native coronary artery without angina pectoris (principal); I13.0 Hypertensive heart and chronic kidney disease with heart failure and stage 1 through stage 4 chronic kidney disease, or unspecified chronic kidney disease; I50.30 Unspecified diastolic (congestive) heart failure; N18.9 Chronic kidney disease, unspecified; E78.5 Hyperlipidemia, unspecified; R74.01 Elevation of levels of liver transaminase levels; J44.1 Chronic obstructive pulmonary disease with (acute) exacerbation; I48.91 Unspecified atrial fibrillation; G47.33 Obstructive sleep apnea (adult) (pediatric); Z98.61 Coronary angioplasty status; I27.20 Pulmonary hypertension, unspecified; Z79.01 Long term (current) use of anticoagulants; Z87.891 Personal history of nicotine dependence | CPT/HCPCS: 99214 ==

== ENCOUNTER 2023-06-29 11:59 | Emergency (ER) | payer MEDICARE, SELFPAY ==
--- NOTE | 2023-06-29 12:03 | ECG_ITS ---
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 Measurements Intervals [place] Rate: 85 P: 52 NC: 147 QRS: 25 QRSD: 68 T: 60 QT: 335 QTc: 400 Interpretive Statements SINUS RHYTHM NONSPECIFIC T-WAVE ABNORMALITY Compared to ECG 01/12/2023 16:39:21 Sinus bradycardia no longer present Myocardial infarct finding no longer present Possible ischemia no longer present T-wave abnormality still present Electronically Signed On 06-29-2023 16:15:21 CDT by Gilbert Maldonado M.D. [id number]
[2023-06-29 12:08] VITALS: BP 157/91; PULSE 87; RESP 19; TEMP 36.6; O2SAT 98; BMI 38.6
--- NOTE | 2023-06-29 12:26 | XRR_ITS ---
PROCEDURE INFORMATION: Exam: XR Chest Exam date and time: 06/29/2023 12:31 PM Age: 67 years old Clinical indication: Pain; Angina pectoris; Prior surgery; Surgery date: 6+ months; Surgery type: Cardiac stents x 2; Patient HX: Cancer: Throat x several years ago; Additional info: Chest pain TECHNIQUE: Imaging protocol: Radiologic exam of the chest. Views: 1 view. COMPARISON: CR XR chest 1V portable [id number] 01/12/2023 8:38 AM FINDINGS: Lungs: Unremarkable. No consolidation. Pleural spaces: Unremarkable. No pleural effusion. No pneumothorax. Heart/Mediastinum: Unremarkable. No cardiomegaly. Bones/joints: Unremarkable. XR/XR chest 1V portable [id number] IMPRESSION: No acute findings.
[2023-06-29 13:56] LABS: Basophils # 0.1 10^3/uL (0.0-0.1); Basophils % 0.6 %; Eosinophils # 0.2 10^3/uL (0.0-0.8); Eosinophils % 1.8 %; Hematocrit 46.1 % (36-47); Lymphocytes # 1.8 10^3/uL (0.8-4.8); Lymphocytes % 15.4 %; Mean Corpuscular HGB Conc 33.2 g/dL (30-55); Mean Corpuscular Hemoglobin 31.9 pg (27-33); Mean Corpuscular Volume 96.2 fl (85-98); Mean Platelet Volume 10.3 fL (7.4-10.4); Monocytes # 0.9 10^3/uL (0.2-0.9); Monocytes % 7.5 %; Neutrophils # 8.49 10^3/uL (1.8-7.7); Nucleated Red Blood Cells % 0 %; Platelet Count 264 10^3/cmm (157-399); Red Blood Count 4.79 10^6/uL (3.85-5.65); Red Cell Distribution Width 14.3 % (12.1-15.1); White Blood Count 11.48 10^3/uL (3.29-11.43)
[2023-06-29 14:11] VITALS: BP 131/71; PULSE 77; RESP 14; O2SAT 94
[2023-06-29] MEDS: ketorolac 30 mg/mL INJ IVP (14:16)
[2023-06-29 14:18] LABS: Troponin(5th) Baseline 12 ng/L (0-10)
--- NOTE | 2023-06-29 14:18 | ED_ITS ---
HPI - Chest Pain General: Chief Complaint: Chest Pain Stated Complaint: chest pressure/back pain Time Seen by Provider: 06/29/23 13:24 History of Present Illness: Presents to the ER with chest pain and back pain x1 year. She said this pain radiates down both legs down both arms into her back and is getting worse. She is said there is nothing different about it today than any other day except she decided to come in to get it checked out. Patient denies any shortness of breath nausea vomiting diaphoresis patient is currently on Eliquis and Plavix. Review of Systems General: Reports: 10 or more systems reviewed and unremarkable except in HPI and below PFSH ED PFSH: Medical History Anticoagulation adequate with anticoagulant therapy Atrial fibrillation Benign essential HTN CAD (coronary artery disease) Cholelithiasis Chronic kidney disease COPD (chronic obstructive pulmonary disease) Diastolic heart failure Dyslipidemia Hypertension Obstructive sleep apnea Peripheral edema Pulmonary HTN Surgical History History of lobectomy of lung History of PTCA History of resection of small bowel Hx of section Hx of unilateral nephrectomy Family History Father CAD (coronary artery disease), Onset Age: 46 [place] Cancer Dementia Diabetes Mother CAD (coronary artery disease), Onset Age: 82 Diabetes Denies family history of Clotting disorder Chronic kidney disease (CKD) Suicide Anesthesia complication Bleeding disorder Lung disease Stroke Social History Smoking and tobacco status: former smoker Alcohol intake: former Substance/Drug Use: current Substance/Drug use frequency: daily Other substance/drug use details: former Methamphetamine use Physical Exam Const: COMMON NORMALS: no acute distress, average body habitus, patient oriented x3, no limitations, healthy appearing, alert and well nourished HENMT: COMMON NORMALS: normocephalic, atraumatic, hearing grossly normal bilaterally, external ears normal, Normal external nose present and moist oral mucous membranes HEAD & SCALP: normocephalic and atraumatic NOSE: Normal external nose present EXTERNAL EAR: Yes external ears normal Eye: COMMON NORMALS: Equal, round and reactive pupils present, EOMs intact bilaterally, conjunctivae normal and no scleral icterus CONJUNCTIVA: Yes conjunctivae normal PUPIL: Yes Equal, round and reactive pupils present Neck/C-Spine: COMMON NORMALS: full ROM, no lymphadenopathy, supple, no m eningeal signs, no JVD and Thyroid normal THYROID: Thyroid normal Lymph: LYMPHATIC: no lymphadenopathy noted Chest: COMMONS NORMALS: normal inspection of the chest and normal palpation of entire chest wall Resp: COMMON NORMALS: normal respiratory effort, No retractions, No use of accessory muscles and clear to auscultation bilaterally AUSCULTATION: clear to auscultation bilaterally Cardio: COMMON NORMALS: no JVD, regular rate, regular rhythm, S1 normal heart sound present, S2 normal heart sound present, No gallops present (Cardio), No clicks present (Cardio), No murmurs present (Cardio) and No rub (Cardio) R ATE: regular rate RHYTHM: regular rhythm HEART SOUNDS: S1 normal heart sound present and S2 normal heart sound present GI: COMMON NORMALS: Normal to inspection, nondistended, normoactive bowel sounds present, Soft to palpation, non-tender, No hepatosplenomegaly present and no masses PALPATION: Yes Soft to palpation and Yes No hepatosplenomegaly present : COMMON NORMALS: Yes no CVA tenderness BLADDER/KIDNEY EXAM: Yes no CVA tenderness Back/Pelvis: COMMON NORMALS: no CVA tenderness Neuro: COMMON NORMALS: patient oriented x3 SENSORIUM/ORIENTATION: Yes alert MENINGEAL SIGNS: Yes no meningeal signs Course Vital Signs: Vital signs: Vital Signs Temperature 97.9 F 06/29/23 12:08 Pulse Rate 77 06/29/23 14:11 Respiratory Rate 14 06/29/23 14:11 Blood Pressure 131/71 06/29/23 14:11 Pulse Oximetry 94 06/29/23 14:11 Oxygen Delivery Me thod Nasal Cannula 06/29/23 14:11 Oxygen Flow Rate 2 06/29/23 14:11 MDM - Chest Pain Medical Decision Making Patient presents to the ER with complaints of chest pain and overall body pain. This been going on for a year and today was no different than any other day. Patient was worked up in a normal chest pain fashion with serial enzymes EKGs and x-rays. These test showed no acute changes for cardiac concern. Patient be discharged home to follow-up with her PCP for further evaluation and treatment. Patient was given 30 mg of Toradol IV during her stay Differential Diagnosis Unlikely acute massive pulmonary embolism, acute respiratory failure, acute myocardial infarction, cardiac arrest or sudden cardiac Medical Records I reviewed the patient's medical records. Lab Data I reviewed the patient's lab results. 06/29/23 13:33 06/29/23 13:33 Radiology Impressions Chest X-Ray 06/29/23 12:26 IMPRESSION: No acute findings. Laboratory Results WBC 11.48 10^3/uL (3.29-11.43) H 06/29/23 13:33 RBC 4.79 10^6/uL (3.85-5.65) 06/29/23 13:33 Hgb 15.30 g/dL (11.27-16.99) 06/29/23 13:33 Hct 46.1 % (36-47) 06/29/23 13:33 MCV 96.2 fl (85-98) 06/29/23 13:33 MCH 31.9 pg (27-33) 06/29/23 13:33 MCHC 33.2 g/dL (30-55) 06/29/23 13:33 RDW 14.3 % (12.1-15.1) 06/29/23 13:33 Plt Count 264 10^3/cmm (157-399) 06/29/23 13:33 MPV 10.3 fL (7.4-10.4) 06/29/23 13:33 Neut % (Auto) 74.0 % 06/29/23 13:33 Lymph % (Auto) 15.4 % 06/29/23 13:33 [place] % (Auto) 7.5 % 06/29/23 13:33 Eos % (Auto) 1.8 % 06/29/23 13:33 Baso % (Auto) 0.6 % 06/29/23 13:33 Neut # (Auto) 8.49 10^3/uL (1.8-7.7) H 06/29/23 13:33 Lymph # (Auto) 1.8 10^3/uL (0.8-4.8) 06/29/23 13:33 [place] # (Auto) 0.9 10^3/uL (0.2-0.9) 06/29/23 13:33 Eos # (Auto) 0.2 10^3/uL (0.0-0.8) 06/29/23 13:33 Baso # (Auto) 0.1 10^3/uL (0.0-0.1) 06/29/23 13:33 Nucleated RBC % (auto) 0 % 06/29/23 13:33 Nucleated RBCs # 0.0 /100WBC 06/29/23 13:33 Sodium 139 mmol/L (136-145) 06/29/23 13:33 Potassium 5.2 mmol/L (3.5-5.1) H 06/29/23 13:33 Chloride 98 mmol/L (98-107) 06/29/23 13:33 Carbon Dioxide 29 mmol/L (22-29) 06/29/23 13:33 Anion Gap 17.2 (5-19) 06/29/23 13:33 BUN 32 mg/dL (8-23) H 06/29/23 13:33 Creatinine 1.6 mg/dL (0.5-0.9) H 06/29/23 13:33 GFR Calculation 32.3 mL/min (90-130) L 06/29/23 13:33 Glucose 321 mg/dL (65-115) H 06/29/23 13:33 Calculated Osmolality 307 mOsm/kg (285-295) H 06/29/23 13:33 Calcium 10.7 mg/dL (8.5-10.5) H 06/29/23 13:33 Total Bilirubin 0.4 mg/dL (0.15-1.2) 06/29/23 13:33 AST 20 U/L (0-32) 06/29/23 13:33 ALT 22 U/L (0-33) 06/29/23 13:33 Alkaline Phosphatase 125 U/L (35-105) H 06/29/23 13:33 Troponin T Baseline 12 ng/L (0-10) H 06/29/23 13:33 Troponin T 120 Minute 14.04 ng/L (0-10) H 06/29/23 15:33 Delta Troponin T 2.04 ABS# (0-10) 06/29/23 15:33 Total Protein 7.5 g/dL (6.6-8.7) 06/29/23 13:33 Albumin 4.8 g/dL (3.5-5.2) 09/25/23 13:33 Globulin 2.7 g/dL (1.3-4.6) 06/29/23 13:33 All radiology interpretation(s) finalized by discharge EKG Data EKG 1: I personally reviewed and interpreted this EKG as follows: EKG interpretation date: 06/29/23 EKG interpretation time: 14:34 Prior EKG tracings: not available for review Interpretation: EKG showed ventricular rate 76 bpm, IL interval 134, QRS duration 76, QTc of 403, sinus rhythm, nonspecific T wave abnormality Discharge Plan Discharge Patient Disposition: Home Clinical Impression: Atypical chest pain Condition: Stable Prescriptions: No Action Eliquis 5 mg tablet 5 mg PO BID aripiprazole [Abilify] 15 mg tablet 15 mg PO QAM sertraline 100 mg tablet 100 mg PO QAM atorvastatin 80 mg tablet 80 mg PO BEDTIME Odefsey 200-25-25 mg tablet 1 tab PO BEDTIME nitroglycerin 0.4 mg tablet, sublingual 0.4 mg sublingual Q5M PRN (Reason: chest pain) albuterol sulfate 90 mcg/actuation HFA aerosol inhaler 2 puff inhalation QID PRN (Reason: shortness of breath or wheezing) hydrocodone-acetaminophen 5-325 mg tablet 1 tab PO .EVERY 4-6 HOURS MDD 3 tabs PRN (Reason: Pain) fluticasone propionate 50 mcg/actuation spray,suspension 1 - 2 spray INTRANASAL DAILY metformin 500 mg tablet 500 mg PO DAILY Rx Instructions: With breakfast Trelegy Ellipta 100-62.5-25 mcg blister with device 1 inh INHALATION DAILY potassium chloride 8 mEq capsule, extended release 16 meq PO BID metoprolol succinate 100 mg tablet extended release 24 hr 100 mg PO QPM clopidogrel 75 mg tablet 75 mg PO DAILY Feosol 325 mg (65 mg iron) Tablet 325 mg PO DAILY lisinopril 10 mg tablet 10 mg PO DAILY gabapentin 300 mg capsule 900 mg PO BID furosemide 20 mg tablet 20 - 40 mg PO DAILY celecoxib 100 mg capsule 100 mg PO DAILY One-A-Day Women VitaCraves 200 mcg Tablet,Chewable 1 tab PO DAILY ondansetron HCl 4 mg tablet 4 mg PO Q4H PRN (Reason: Nausea And Vomiting) aspirin 325 mg Tablet 325 mg PO DAILY PRN (Reason: Pain) isosorbide mononitrate 60 mg Tablet Extended Release 24 Hr 60 mg PO QAM cetirizine 10 mg tablet 10 mg PO DAILY PRN (Reason: Allergy Symptoms) bupropion HCl 300 mg tablet extended release 24 hr 300 mg PO QAM lactulose 10 gram/15 mL solution 15 ml PO DAILY Discharge Orders: Discharge ED (Routine); Ordered 06/29/23 Ordered By: Xu Alvarez Referrals: Armen,CECY Liu [Primary Care Provider] - 1 week Patient Instructions: Chest Pain - Noncardiac Activity Restrictions/Additional Instructions: Please follow-up with your family practice physician for further evaluation testing of your chronic pain. 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
[2023-06-29 14:19] LABS: Alanine Aminotransferase 22 U/L (0-33); Albumin Level 4.8 g/dL (3.5-5.2); Alkaline Phosphatase 125 U/L (35-105); Anion Gap 17.2 (5-19); Aspartate Amino Transferase 20 U/L (0-32); Blood Urea Nitrogen 32 mg/dL (8-23); Calcium 10.7 mg/dL (8.5-10.5); Carbon Dioxide 29 mmol/L (22-29); Chloride 98 mmol/L (98-107); Globulin 2.7 g/dL (1.3-4.6); Glomerular Filtration Rate 32.3 mL/min (90-130); Glucose 321 mg/dL (65-115); Osmolality Calculated 307 mOsm/kg (285-295); Potassium 5.2 mmol/L (3.5-5.1); Sodium 139 mmol/L (136-145); Total Bilirubin 0.4 mg/dL (0.15-1.2); Total Protein 7.5 g/dL (6.6-8.7)
--- NOTE | 2023-06-29 14:26 | ECG_ITS ---
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 Measurements Intervals [place] Rate: 76 P: 87 NM: 134 QRS: 40 QRSD: 76 T: 53 QT: 373 QTc: 420 Interpretive Statements SINUS RHYTHM NONSPECIFIC T-WAVE ABNORMALITY Compared to ECG 06/29/2023 12:03:04 No significant changes Electronically Signed On 06-29-2023 16:17:50 CDT by Gilbert Maldonado M.D. [id number]
--- NOTE | 2023-06-29 14:26 | PC.NURSE ---
1st EKG completed by flamer after lasting
[2023-06-29 16:22] LABS: Troponin 5 2HR 14.04 ng/L (0-10)
[2023-06-29 16:24] LABS: Troponin 5 2HR Delta 2.04 ABS# (0-10)
[2023-06-29 17:36] VITALS: BP 157/107; PULSE 81; RESP 21; O2SAT 95
== END 2023-06-29 17:19 | disposition home or self-care (01) ==
PROVIDERS: Physician Assistant; Emergency Provider Emergency Medicine; PCP Nurse Practitioner Family
DX: R07.89 Other chest pain (principal); Z79.01 Long term (current) use of anticoagulants; Z79.84 Long term (current) use of oral hypoglycemic drugs; Z79.02 Long term (current) use of antithrombotics/antiplatelets; Z79.82 Long term (current) use of aspirin; Z87.891 Personal history of nicotine dependence; I25.10 Atherosclerotic heart disease of native coronary artery without angina pectoris; I13.0 Hypertensive heart and chronic kidney disease with heart failure and stage 1 through stage 4 chronic kidney disease, or unspecified chronic kidney disease; N18.9 Chronic kidney disease, unspecified; I50.30 Unspecified diastolic (congestive) heart failure; J44.9 Chronic obstructive pulmonary disease, unspecified; E78.5 Hyperlipidemia, unspecified; Z90.2 Acquired absence of lung [part of]
CPT/HCPCS: 36415; 71045; 80053; 84484; 85025; 93005; 96374; 99285; J1885

== ENCOUNTER 2023-07-02 18:10 | Emergency (ER) | payer MEDICARE, SELFPAY ==
[2023-07-02] VITALS (7 sets, daily range): BP systolic 107–173; BP diastolic 65–101; PULSE 85–101; RESP 16–18; TEMP 36.7; O2SAT 90; BMI 40.8
--- NOTE | 2023-07-02 18:16 | XRR_ITS ---
PROCEDURE INFORMATION: Exam: XR Chest Exam date and time: 07/02/2023 6:29 PM Age: 67 years old Clinical indication: Pain; Chest pressure; Additional info: Cp TECHNIQUE: Imaging protocol: Radiologic exam of the chest. Views: 1 view. COMPARISON: CR XR chest 1V portable [id number] 06/29/2023 12:31 PM FINDINGS: Lungs: Unremarkable. No consolidation. Pleural spaces: Unremarkable. No pleural effusion. No pneumothorax. Heart/Mediastinum: Unremarkable. No cardiomegaly. Bones/joints: Unremarkable. XR/XR chest 1V portable [id number] IMPRESSION: No acute findings.
--- NOTE | 2023-07-02 18:16 | ECG_ITS ---
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 Measurements Intervals [place] Rate: 89 P: 93 [place]: 140 QRS: 28 QRSD: 77 T: 53 QT: 362 QTc: 442 Interpretive Statements SINUS RHYTHM NONSPECIFIC T-WAVE ABNORMALITY Compared to ECG 07/02/2023 18:21:11 No significant changes Electronically Signed On 07-03-2023 10:59:57 CDT by Pat Markham M.D. [id number]
[2023-07-02 18:35] LABS: Basophils # 0.1 10^3/uL (0.0-0.1); Basophils % 0.5 %; Eosinophils # 0.2 10^3/uL (0.0-0.8); Eosinophils % 1.6 %; Hematocrit 43.2 % (36-47); Lymphocytes # 2.6 10^3/uL (0.8-4.8); Mean Corpuscular Hemoglobin 31.7 pg (27-33); Mean Corpuscular Volume 93.3 fl (85-98); Mean Platelet Volume 9.9 fL (7.4-10.4); Monocytes % 7.5 %; Neutrophils # 9.52 10^3/uL (1.8-7.7); Neutrophils % 70.9 %; Nucleated Red Blood Cells % 0 %; Platelet Count 243 10^3/cmm (157-399); Red Blood Count 4.63 10^6/uL (3.85-5.65); Red Cell Distribution Width 14.3 % (12.1-15.1); White Blood Count 13.44 10^3/uL (3.29-11.43)
[2023-07-02 18:46] LABS: INR 0.89 (0.8-1.2)
[2023-07-02 18:58] LABS: Alanine Aminotransferase 21 U/L (0-33); Albumin Level 4.7 g/dL (3.5-5.2); Alkaline Phosphatase 118 U/L (35-105); Anion Gap 17.6 (5-19); Aspartate Amino Transferase 20 U/L (0-32); Blood Urea Nitrogen 34 mg/dL (8-23); Calcium 9.5 mg/dL (8.5-10.5); Carbon Dioxide 29 mmol/L (22-29); Chloride 100 mmol/L (98-107); Globulin 2.8 g/dL (1.3-4.6); Glomerular Filtration Rate 34.9 mL/min (90-130); Glucose 224 mg/dL (65-115); Lipase 101 U/L (13-60); Osmolality Calculated 309 mOsm/kg (285-295); Potassium 4.6 mmol/L (3.5-5.1); Sodium 142 mmol/L (136-145); Total Bilirubin 0.3 mg/dL (0.15-1.2); Total Protein 7.5 g/dL (6.6-8.7)
[2023-07-02] MEDS: ondansetron 2 mg/ML SDV 2 mL 4 MG IVP (18:59)
[2023-07-02] MEDS: dexamethasone 10 mg/mL INJ IVP (18:59)
[2023-07-02] MEDS: morphine 4 mg/mL SDV 1 mL IVP (18:59)
[2023-07-02 19:00] LABS: Creatinine Clr Calc Pharmacy 44.8623
--- NOTE | 2023-07-02 19:06 | CTR_ITS ---
PROCEDURE INFORMATION: Exam: CTA Chest With Contrast Exam date and time: 07/02/2023 8:05 PM Age: 67 years old Clinical indication: Pain; Shortness of breath; Chest pressure; Additional info: Cp TECHNIQUE: Imaging protocol: Computed tomographic angiography of the chest with contrast. Exam focused on the arteries. 3D rendering (Not supervised by radiologist): MIP and/or 3D reconstructed images were created by the technologist. Radiation optimization: All CT scans at this facility use at least one of these dose optimization techniques: automated exposure control; mA and/or kV adjustment per patient size (includes targeted exams where dose is matched to clinical indication); or iterative reconstruction. Contrast material: OMNI 350; Contrast volume: 100 ml; Contrast route: INTRAVENOUS (IV); REPORTING DATA: Count of CT and Cardiac NM exams in prior 12 months: This patient has received 4 known CTs and 0 known cardiac nuclear medicine studies in the 12 months prior to the current study. COMPARISON: CR (CHEST, ) 07/02/2023 6:29 PM RADIATION DOSE METRICS: Total DLP (mGy-cm): 549 FINDINGS: Pulmonary arteries: Normal. No pulmonary emboli. Aorta: Unremarkable. No aortic aneurysm. No aortic dissection. Lungs: Unremarkable. No consolidation. No masses. Pleural spaces: Unremarkable. No pneumothorax. No pleural effusion. Heart: Unremarkable. No cardiomegaly. No pericardial effusion. Coronary arteries: Coronary arterial atherosclerotic calcifications are present. Lymph nodes: Unremarkable. No enlarged lymph nodes. Bones/joints: Unremarkable. No acute fracture. Soft tissues: Unremarkable. CT/CT angio chest PE protcl [id number] IMPRESSION: 1. No pulmonary embolus. 2. No focal consolidation. 3. Atherosclerosis. Coronary artery disease.
[2023-07-02 19:08] LABS: Troponin(5th) Baseline 14 ng/L (0-10)
[2023-07-02] MEDS: iohexol 350 mg/mL 500 mL Btl (per mL) IV (19:31)
--- NOTE | 2023-07-02 19:49 | W.ED.CHESTPA ---
HPI - Chest Pain General: Chief Complaint: Chest Pain Stated Complaint: Back pain, feet pain, chest pain Time Seen by Provider: 07/02/23 18:19 Source: patient Mode of arrival: ambulatory Limitations: no limitations History of Present Illness: 67-year-old female is here with multiple complaints she states that over the last months she been having intermittent chest pain states she also has back pain she has pain in her thoracic and low back states she has pain down both her legs she has pain in her feet. Denies any difficulty walking she denies any shortness of breath. She had no vomiting no diarrhea she is seen 2 days ago for the same. Associated symptoms: Deny abdominal pain, dyspnea, fever(s), nausea or vomiting Review of Systems Const: Denies: fever(s), chills, body aches or change in appetite Eyes: Denies: blurry vision or eye discomfort ENMT: Denies: throat pain or dental pain Card: Reports: chest pain Resp: Denies: dyspnea GI: Denies: abdominal pain, nausea, vomiting or diarrhea : Denies: dysuria Musc: Reports: back pain and extremity pain; Denies: neck pain Skin/Breast: Denies: rash Neuro: Denies: headache(s) PFSH ED PFSH: Medical History Anticoagulation adequate with anticoagulant therapy Atrial fibrillation Benign essential HTN CAD (coronary artery disease) Cholelithiasis Chronic kidney disease COPD (chronic obstructive pulmonary disease) Diastolic heart failure Dyslipidemia Hypertension Obstructive sleep apnea Peripheral edema Pulmonary HTN Surgical History History of lobectomy of lung History of PTCA History of resection of small bowel Hx of section Hx of unilateral nephrectomy Family History Father CAD (coronary artery disease), Onset Age: 46 [place] Cancer Dementia Diabetes Mother CAD (coronary artery disease), Onset Age: 82 Diabetes Denies family history of Clotting disorder Chronic kidney disease (CKD) Suicide Anesthesia complication Bleeding disorder Lung disease Stroke Social History Smoking and tobacco status: former smoker Alcohol intake: former Substance/Drug Use: current Substance/Drug use frequency: daily Other substance/drug use details: former Methamphetamine use Physical Exam Const: COMMON NORMALS: no acute distress, patient oriented x3 and healthy appearing HENMT: COMMON NORMALS: normocephalic and atraumatic HEAD & SCALP: normocephalic and atraumatic Eye: COMMON NORMALS: Equal, round and reactive pupils present and EOMs intact bilaterally PUPIL: Yes Equal, round and reactive pupils present Neck/C-Spine: COMMON NORMALS: full ROM and supple Chest: COMMONS NORMALS: normal inspection of the chest and normal palpation of entire chest wall Resp: COMMON NORMALS: normal respiratory effort, No retractions, No use of accessory muscles and clear to auscultation bilaterally AUSCULTATION: clear to auscultation bilaterally Cardio: COMMON NORMALS: regular rate, regular rhythm and No murmurs present (Cardio) RATE: regular rate RHYTHM: regular rhythm GI: COMMON NORMALS: Normal to inspection, nondistended, normoactive bowel sounds present, Soft to palpation, non-tender and no masses PALPATION: Yes Soft to palpation Extremity: COMMON NORMALS: normal to inspection and full ROM Neuro: COMMON NORMALS: patient oriented x3, moves all extremities and no focal motor deficits Psych: COMMON NORMALS: mental status grossly normal, Normal thought process present and cooperative THOUGHT PROCESS: Normal thought process present Skin: COMMON NORMALS: no rashes or lesions noted and no wounds GENERAL SKIN EXAM: no rashes or lesions noted Course Vital Signs: Vital signs: Vital Signs Temperature 98.0 F 07/02/23 18:13 Pulse Rate 85 07/02/23 22:45 Respiratory Rate 16 07/02/23 22:45 Blood Pressure 125/73 07/02/23 22:45 Pulse Oximetry 90 07/02/23 22:45 Oxygen Delivery Me thod Room Air 07/02/23 18:32 MDM - Chest Pain Medical Decision Making Patient presents here with chest pain and back pain her labs CT angio here are all normal back pain seems to be muscle skeletal in nature she is stable for discharge she is follow-up with PCP and return if worsening. Medical Records I reviewed the patient's medical records. Lab Data I reviewed the patient's lab results. 07/02/23 18:28 07/02/23 18:28 Radiology Impressions Chest X-Ray 07/02/23 18:16 IMPRESSION: No acute findings. Chest CTA 07/02/23 19:06 IMPRESSION: 1. No pulmonary embolus. 2. No focal consolidation. 3. Atherosclerosis. Coronary artery disease. Laboratory Results WBC 13.44 10^3/uL (3.29-11.43) H 07/02/23 18: RBC 4.63 10^6/uL (3.85-5.65) 07/02/23 18: Hgb 14.70 g/dL (11.27-16.99) 07/02/23 18: Hct 43.2 % (36-47) 07/02/23 18: MCV 93.3 fl (85-98) 07/02/23 18: MCH 31.7 pg (27-33) 07/02/23 18: MCHC 34.0 g/dL (30-55) 07/02/23 18: RDW 14.3 % (12.1-15.1) 07/02/23 18: Plt Count 243 10^3/cmm (157-399) 07/02/23 18: MPV 9.9 fL (7.4-10.4) 07/02/23 18: Neut % (Auto) 70.9 % 07/02/23 18: Lymph % (Auto) 19.0 % 07/02/23 18: [place] % (Auto) 7.5 % 07/02/23 18: Eos % (Auto) 1.6 % 07/02/23 18: Baso % (Auto) 0.5 % 07/02/23 18: Neut # (Auto) 9.52 10^3/uL (1.8-7.7) H 07/02/23 18: Lymph # (Auto) 2.6 10^3/uL (0.8-4.8) 07/02/23 18: [place] # (Auto) 1.0 10^3/uL (0.2-0.9) H 07/02/23 18: Eos # (Auto) 0.2 10^3/uL (0.0-0.8) 07/02/23 18: Baso # (Auto) 0.1 10^3/uL (0.0-0.1) 07/02/23 18: Nucleated RBC % (auto) 0 % 07/02/23 18:28 Nucleated RBCs # 0.0 /100WBC 07/02/23 18:28 PT 12.30 SECONDS (12.1-14.9) 07/02/23 18:28 INR 0.89 (0.8-1.2) 07/02/23 18:28 Sodium 142 mmol/L (136-145) 07/02/23 18:28 Potassium 4.6 mmol/L (3.5-5.1) 07/02/23 18:28 Chloride 100 mmol/L (98-107) 07/02/23 18:28 Carbon Dioxide 29 mmol/L (22-29) 07/02/23 18:28 Anion Gap 17.6 (5-19) 07/02/23 18:28 BUN 34 mg/dL (8-23) H 07/02/23 18:28 Creatinine 1.5 mg/dL (0.5-0.9) H 07/02/23 18:28 GFR Calculation 34.9 mL/min (90-130) L 07/02/23 18:28 Glucose 224 mg/dL (65-115) H 07/02/23 18:28 Calculated Osmolality 309 mOsm/kg (285-295) H 07/02/23 18:28 Calcium 9.5 mg/dL (8.5-10.5) 07/02/23 18:28 Total Bilirubin 0.3 mg/dL (0.15-1.2) 07/02/23 18:28 AST 20 U/L (0-32) 07/02/23 18:28 ALT 21 U/L (0-33) 07/02/23 18:28 Alkaline Phosphatase 118 U/L (35-105) H 07/02/23 18:28 Troponin T Baseline 14 ng/L (0-10) H 07/02/23 18:28 Troponin T 120 Minute 15.34 ng/L (0-10) H 07/02/23 20:38 Delta Troponin T 1.34 ABS# (0-10) 07/02/23 20:38 NT-Pro-B Natriuret Pep 177 pg/mL (0-125) H 07/02/23 18:28 Total Protein 7.5 g/dL (6.6-8.7) 07/02/23 18:28 Albumin 4.7 g/dL (3.5-5.2) 07/02/23 18:28 Globulin 2.8 g/dL (1.3-4.6) 07/02/23 18:28 Lipase 101 U/L (13-60) H 07/02/23 18:28 All radiology interpretation(s) finalized by discharge Discharge Plan Discharge Patient Disposition: Home Clinical Impression: Chest pain, Back pain Condition: Stable Prescriptions: New hydrocodone-acetaminophen 5-325 mg tablet 1 tab PO Q6H PRN (Reason: pain) Qty: 14 0RF No Action Eliquis 5 mg tablet 5 mg PO BID aripiprazole [Abilify] 15 mg tablet 15 mg PO QAM sertraline 100 mg tablet 100 mg PO QAM atorvastatin 80 mg tablet 80 mg PO BEDTIME Odefsey 200-25-25 mg tablet 1 tab PO BEDTIME nitroglycerin 0.4 mg tablet, sublingual 0.4 mg sublingual Q5M PRN (Reason: chest pain) albuterol sulfate 90 mcg/actuation HFA aerosol inhaler 2 puff inhalation QID PRN (Reason: shortness of breath or wheezing) hydrocodone-acetaminophen 5-325 mg tablet 1 tab PO .EVERY 4-6 HOURS MDD 3 tabs PRN (Reason: Pain) fluticasone propionate 50 mcg/actuation spray,suspension 1 - 2 spray INTRANASAL DAILY metformin 500 mg tablet 500 mg PO DAILY Rx Instructions: With breakfast Trelegy Ellipta 100-62.5-25 mcg blister with device 1 inh INHALATION DAILY potassium chloride 8 mEq capsule, extended release 16 meq PO BID metoprolol succinate 100 mg tablet extended release 24 hr 100 mg PO QPM clopidogrel 75 mg tablet 75 mg PO DAILY Feosol 325 mg (65 mg iron) Tablet 325 mg PO DAILY lisinopril 10 mg tablet 10 mg PO DAILY gabapentin 300 mg capsule 900 mg PO BID furosemide 20 mg tablet 20 - 40 mg PO DAILY celecoxib 100 mg capsule 100 mg PO DAILY One-A-Day Women VitaCraves 200 mcg Tablet,Chewable 1 tab PO DAILY ondansetron HCl 4 mg tablet 4 mg PO Q4H PRN (Reason: Nausea And Vomiting) aspirin 325 mg Tablet 325 mg PO DAILY PRN (Reason: Pain) isosorbide mononitrate 60 mg Tablet Extended Release 24 Hr 60 mg PO QAM cetirizine 10 mg tablet 10 mg PO DAILY PRN (Reason: Allergy Symptoms) bupropion HCl 300 mg tablet extended release 24 hr 300 mg PO QAM lactulose 10 gram/15 mL solution 15 ml PO DAILY Discharge Orders: Discharge ED (Routine); Ordered 07/02/23 Ordered By: Destiny Bush Referrals: Alexa Ayers APN [Primary Care Provider] - 1-3 days Discharge Diet: Advance as tolerated Discharge Activity: Resume usual activity Patient Instructions: Chest Pain (ED), Back Pain (ED) Coding Level of Care Code ED Ground Control Approach Technician for Irena Hermosillo
[2023-07-02 20:16] LABS: NT Pro B Type Natriuretic Pept 177 pg/mL (0-125)
--- NOTE | 2023-07-02 20:16 | ECG_ITS ---
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 Measurements Intervals [place] Rate: 95 P: 84 [place]: 142 QRS: 34 QRSD: 78 T: 47 QT: 356 QTc: 448 Interpretive Statements SINUS RHYTHM NONSPECIFIC ST & T-WAVE ABNORMALITY Compared to ECG 06/29/2023 14:34:39 No significant changes Electronically Signed On 07-03-2023 11:01:45 CDT by Pat Markham M.D. [id number]
[2023-07-02 21:03] LABS: Troponin 5 2HR 15.34 ng/L (0-10)
[2023-07-02 21:04] LABS: Troponin 5 2HR Delta 1.34 ABS# (0-10)
[2023-07-02] MEDS: lidocaine 2% viscous 15 ML, aluminum-mag hydrox-simethicon 30 ML, sucralfate oral liq 1 GM PO (21:21)
== END 2023-07-02 22:48 | disposition home or self-care (01) ==
PROVIDERS: Emergency Provider Emergency Medicine; PCP Nurse Practitioner Family
DX: R07.9 Chest pain, unspecified (principal); M54.9 Dorsalgia, unspecified; Z79.01 Long term (current) use of anticoagulants; Z79.84 Long term (current) use of oral hypoglycemic drugs; Z79.02 Long term (current) use of antithrombotics/antiplatelets; Z79.82 Long term (current) use of aspirin; I25.10 Atherosclerotic heart disease of native coronary artery without angina pectoris; Z87.891 Personal history of nicotine dependence; I13.0 Hypertensive heart and chronic kidney disease with heart failure and stage 1 through stage 4 chronic kidney disease, or unspecified chronic kidney disease; N18.9 Chronic kidney disease, unspecified; I50.30 Unspecified diastolic (congestive) heart failure; J44.9 Chronic obstructive pulmonary disease, unspecified; E78.5 Hyperlipidemia, unspecified; Z90.2 Acquired absence of lung [part of]; Z90.5 Acquired absence of kidney
CPT/HCPCS: 36415; 71045; 71275; 80053; 83690; 83880; 84484; 85025; 85610; 93005; 96374; 96375; 99285; J1100; J2270; J2405; Q9967

== ENCOUNTER 2023-07-05 11:05 | Emergency (ER) | payer MEDICARE, SELFPAY ==
[2023-07-05 11:06] VITALS: BP 133/81; PULSE 83; RESP 22; TEMP 36.6; O2SAT 92
--- NOTE | 2023-07-05 11:09 | ECG_ITS ---
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 Measurements Intervals [place] Rate: 76 P: 84 [place]: 142 QRS: 30 QRSD: 73 T: 41 QT: 371 QTc: 419 Interpretive Statements SINUS RHYTHM WITH OCCASIONAL SUPRAVENTRICULAR PREMATURE COMPLEXES SEPTAL MYOCARDIAL INFARCTION , OF INDETERMINATE AGE [40+ ms Q WAVE IN V1/V2] Compared to ECG 07/02/2023 20:39:34 Myocardial infarct finding now present T-wave abnormality no longer present Electronically Signed On 07-05-2023 13:55:27 CDT by Gilbert Maldonado M.D. [id number]
[2023-07-05 11:16] VITALS: BP 133/81; PULSE 75; RESP 22; O2SAT 93
--- NOTE | 2023-07-05 11:17 | ED_ITS ---
HPI - Chest Pain General: Chief Complaint: Chest Pain Stated Complaint: chest pain Time Seen by Provider: 07/05/23 11:06 Source: patient Mode of arrival: ambulatory Limitations: no limitations History of Present Illness: This patient returns to the emergency department because of symptoms of trunk pain. She describes as some chest pain as well as back pain. She has a longstanding history of chronic back pain but also has a history of coronary artery disease has had numerous stents placed the most recent according to her is approximate 4 to 6 months ago at this facility. She states that she thinks she may have overdid it yesterday when shopping. She states that she is having more pain today. He states she was did not have any pain throughout the night although slept fitfully. She intermittently wears oxygen when needed. She is continues to smoke tobacco. She states she is taking her usual medications this morning. She also has a additional comorbidity of atrial fibrillation therefore she takes both apixaban and clopidogrel which she states she is faithful to. Denies any fevers or chills or cough. She is unsure if she has any definitive chest pain that is brought on by exertion but describes it more as truncal pain. She has not taken nitroglycerin today. Associated symptoms: Reports dyspnea; Deny abdominal pain, fever(s), nausea, palpitations, syncope or vomiting Review of Systems Const: Denies: fever(s) or chills Eyes: Denies: change in vision ENMT: Denies: throat pain, odynophagia, nasal discharge or nasal congestion Card: Reports: chest pain; Denies: palpitations, irregular heart rhythm, lightheadedness, syncope or pre- syncope Resp: Reports: dyspnea; Denies: productive cough or non-productive cough GI: Denies: abdominal pain, nausea, vomiting or diarrhea : Denies: difficulty voiding or dysuria Musc: Reports: back pain and joint pain; Denies: extremity pain, extremity swelling, joint redness or joint warmth Skin/Breast: Denies: rash Neuro: Denies: headache(s), weakness in extremities or vertigo Mynor/Lymph: Reports: easy bruising PFS ED PFSH: Medical History Anticoagulation adequate with anticoagulant therapy Atrial fibrillation Benign essential HTN CAD (coronary artery disease) Cholelithiasis Chronic kidney disease COPD (chronic obstructive pulmonary disease) Diastolic heart failure Dyslipidemia Hypertension Obstructive sleep apnea Peripheral edema Pulmonary HTN Surgical History History of lobectomy of lung History of PTCA History of resection of small bowel Hx of section Hx of unilateral nephrectomy Family History Father CAD (coronary artery disease), Onset Age: 46 [place] Cancer Dementia Diabetes Mother CAD (coronary artery disease), Onset Age: 82 Diabetes Denies family history of Clotting disorder Chronic kidney disease (CKD) Suicide Anesthesia complication Bleeding disorder Lung disease Stroke Social History Smoking and tobacco status: former smoker Alcohol intake: former Substance/Drug Use: current Substance/Drug use frequency: daily Other substance/drug use details: former Methamphetamine use Physical Exam Narrative: EXAM NARRATIVE: She makes good eye contact and appears to be in no acute distress at time of the intake evaluation. She is comfortable and cooperative. Const: COMMON NORMALS: no acute distress and patient oriented x3 GENERAL APPEARANCE: cooperative NUTRITIONAL APPEARANCE: overweight HENMT: COMMON NORMALS: normocephalic, Normal nasal mucous membranes and turbinates present, moist oral mucous membranes and oropharynx normal HEAD & SCALP: normocephalic NOSE: Normal nasal mucous membranes and turbinates present Eye: COMMON NORMALS: Equal, round and reactive pupils present, EOMs intact bilaterally and conjunctivae normal CONJUNCTIVA: Yes conjunctivae normal PUPIL: Yes Equal, round and reactive pupils present Neck/C-Spine: COMMON NORMALS: full ROM, supple, no JVD and No carotid bruits Chest: OTHER: She has tenderness to palpation across the anterior chest. No ecchymosis or skin rashes are noted. Resp: COMMON NORMALS: normal respiratory effort, No use of accessory muscles and clear to auscultation bilaterally AUSCULTATION: clear to auscultation bilaterally and diminished lung sounds Cardio: COMMON NORMALS: no JVD, regular rate, regular rhythm, No murmurs present (Cardio) and Peripheral pulses 2+ throughout RATE: regular rate RHYTHM: regular rhythm PERIPHERAL PULSES: Peripheral pulses 2+ throughout GI: COMMON NORMALS: Normal to inspection, nondistended, normoactive bowel sounds present, Soft to palpation, non-tender and No hepatosplenomegaly present INSPECTION: Yes central obesity PALPATION: Yes Soft to palpation and Yes No hepatosplenomegaly present : COMMON NORMALS: Yes no CVA tenderness BLADDER/KIDNEY EXAM: Yes no CVA tenderness Back/Pelvis: COMMON NORMALS: no CVA tenderness, thoracic and lumbar spine normal to inspection, thoraco-lumbar ROM normal and straight leg raise negative bilaterally Extremity: COMMON NORMALS: normal to inspection, full ROM, capillary refill normal, no calf tenderness and no pedal edema Neuro: COMMON NORMALS: patient oriented x3, moves all extremities, no focal motor deficits and no sensory deficits noted CRANIAL NERVES: Yes CN normal except as noted Psych: COMMON NORMALS: mental status grossly normal Skin: NARRATIVE SKIN EXAM: She has multiple small ecchymosis over the anterior abdomen most of them measuri ng approximately 2 to 3 to 3 cm in varying stages of healing. Course Reevaluation(s): Reevaluation #1: Chest x-ray is notable for pulmonary vascular congestion. While awaiting the second troponin to Assess for assess for ongoing ACS we will diurese. Time: 12:51 Reevaluation #2: Patient is clinically stable. Vital signs are reassuring and she subjectively feels improved. Has had some diuresis. She does relate to me that she has been taking some Lasix but not her usual dosing. We will plan on increasing her dose for the next 5 days. We discussed return precautions with both she and spouse who is now present Time: 14:37 Vital Signs: Vital signs: Vital Signs Temperature 97.9 F 07/05/23 11:06 Pulse Rate 75 07/05/23 11:16 Respiratory Rate 22 H 07/05/23 11:16 Blood Pressure 121/70 07/05/23 13:00 Pulse Oximetry 92 07/05/23 11:46 Oxygen Delivery Me thod Nasal Cannula 07/05/23 11:46 Oxygen Flow Rate 2 07/05/23 11:46 MDM - Chest Pain Medical Decision Making This patient presented with chest pain symptoms as well as other somatic complaints today. She has had a number of ER visits for similar complaints in the past but does have a history of atrial fibrillation as well as coronary artery disease. She had no associated diaphoresis, shortness of breath change from usual, nausea with her symptoms today. Clinical examination was unrevealing for any stigmata of acute condition at this time. Work-up was undertaken to ensure no evidence of ACS, pneumonia, other etiologies of chest pain symptoms. Initial troponin was slightly over the URL however she had no dynamic EKG changes and subsequent troponin delta was negative. She did have evidence of pulmonary congestion on chest x-ray without any other concerning features. Likely this patient who has known coronary artery is as well as arrhythmic heart disease has had development of pulmonary congestion likely to decreased use of h er prescribed diuretics. Plan will be to increase her to an extra 40 mg of Lasix daily for the next 5 days and follow her response. This was discussed in detail. She is stable at this time for discharge with detailed return precautions. Medical Records I reviewed the patient's medical records. Lab Data I reviewed the patient's lab results. 07/05/23 11:38 07/05/23 11:38 Radiology Impressions Chest X-Ray 07/05/23 11:24 IMPRESSION: New mild bilateral pulmonary edema and/or pneumonitis with new pulmonary vascular congestion. Laboratory Results WBC 9.15 10^3/uL (3.29-11.43) 07/05/23 11:38 RBC 4.13 10^6/uL (3.85-5.65) 07/05/23 11:38 Hgb 13.20 g/dL (11.27-16.99) 07/05/23 11:38 Hct 39.8 % (36-47) 07/05/23 11:38 MCV 96.4 fl (85-98) 07/05/23 11:38 MCH 32.0 pg (27-33) 07/05/23 11:38 MCHC 33.2 g/dL (30-55) 07/05/23 11:38 RDW 14.2 % (12.1-15.1) 07/05/23 11:38 Plt Count 205 10^3/cmm (157-399) 07/05/23 11:38 MPV 10.2 fL (7.4-10.4) 07/05/23 11:38 Neut % (Auto) 68.2 % 07/05/23 11:38 Lymph % (Auto) 19.9 % 07/05/23 11:38 [place] % (Auto) 8.5 % 07/05/23 11:38 Eos % (Auto) 2.1 % 07/05/23 11:38 Baso % (Auto) 0.5 % 07/05/23 11:38 Neut # (Auto) 6.24 10^3/uL (1.8-7.7) 07/05/23 11:38 Lymph # (Auto) 1.8 10^3/uL (0.8-4.8) 07/05/23 11:38 [place] # (Auto) 0.8 10^3/uL (0.2-0.9) 07/05/23 11:38 Eos # (Auto) 0.2 10^3/uL (0.0-0.8) 07/05/23 11:38 Baso # (Auto) 0.1 10^3/uL (0.0-0.1) 07/05/23 11:38 Nucleated RBC % (auto) 0 % 07/05/23 11:38 Nucleated RBCs # 0.0 /100WBC 07/05/23 11:38 PT 12.50 SECONDS (12.1-14.9) 07/05/23 11:38 INR 0.91 (0.8-1.2) 07/05/23 11:38 Sodium 139 mmol/L (136-145) 07/05/23 11:38 Potassium 4.6 mmol/L (3.5-5.1) 07/05/23 11:38 Chloride 98 mmol/L (98-107) 07/05/23 11:38 Carbon Dioxide 29 mmol/L (22-29) 07/05/23 11:38 Anion Gap 16.6 (5-19) 07/05/23 11:38 BUN 30 mg/dL (8-23) H 07/05/23 11:38 Creatinine 1.1 mg/dL (0.5-0.9) H 07/05/23 11:38 GFR Calculation 49.8 mL/min (90-130) L 07/05/23 11:38 Glucose 313 mg/dL (65-115) H 07/05/23 11:38 Calculated Osmolality 306 mOsm/kg (285-295) H 07/05/23 11:38 Calcium 9.1 mg/dL (8.5-10.5) 07/05/23 11:38 Troponin T Baseline 13 ng/L (0-10) H 07/05/23 11:38 Troponin T 120 Minute 12.00 ng/L (0-10) H 07/05/23 13:38 Delta Troponin T -1.00 ABS# (0-10) L 07/05/23 13:38 All radiology interpretation(s) finalized by discharge EKG Data EKG 1: I personally reviewed and interpreted this EKG as follows: Interpretation: Resting initial EKG reveals a ventricular rate of 76 bpm. Normal AK interval, QRS duration, corrected QT interval. Normal axis. Loss of R wave anteriorly suggestive of remote anterior [place]. No acute ST-T wave changes noted. EKG 2: I personally reviewed and interpreted this EKG as follows: Interpretation: Second EKG this visit reveals a ventricular rate of 76 bpm with normal AK interval, QRS duration, corrected QT interval. Normal axis. No acute or dynamic changes from earlier tracing. Discharge Plan Discharge Patient Disposition: Home Clinical Impression: Pulmonary vascular congestion Condition: Stable Prescriptions: New furosemide 40 mg tablet 40 mg PO BID Qty: 10 0RF No Action Eliquis 5 mg tablet 5 mg PO BID aripiprazole [Abilify] 15 mg tablet 15 mg PO QAM sertraline 100 mg tablet 100 mg PO QAM atorvastatin 80 mg tablet 80 mg PO BEDTIME Odefsey 200-25-25 mg tablet 1 tab PO BEDTIME nitroglycerin 0.4 mg tablet, sublingual 0.4 mg sublingual Q5M PRN (Reason: chest pain) albuterol sulfate 90 mcg/actuation HFA aerosol inhaler 2 puff inhalation QID PRN (Reason: shortness of breath or wheezing) hydrocodone-acetaminophen 5-325 mg tablet 1 tab PO .EVERY 4-6 HOURS MDD 3 tabs PRN (Reason: Pain) fluticasone propionate 50 mcg/actuation spray,suspension 1 - 2 spray INTRANASAL DAILY metformin 500 mg tablet 500 mg PO DAILY Rx Instructions: With breakfast Trelegy Ellipta 100-62.5-25 mcg blister with device 1 inh INHALATION DAILY potassium chloride 8 mEq capsule, extended release 16 meq PO BID metoprolol succinate 100 mg tablet extended release 24 hr 100 mg PO QPM clopidogrel 75 mg tablet 75 mg PO DAILY ferrous sulfate [Feosol] 325 mg (65 mg iron) Tablet 325 mg PO DAILY lisinopril 10 mg tablet 10 mg PO DAILY gabapentin 300 mg capsule 900 mg PO BID furosemide 20 mg tablet 20 - 40 mg PO DAILY celecoxib 100 mg capsule 100 mg PO DAILY One-A-Day Women VitaCraves 200 mcg Tablet,Chewable 1 tab PO DAILY ondansetron HCl 4 mg tablet 4 mg PO Q4H PRN (Reason: Nausea And Vomiting) aspirin 325 mg Tablet 325 mg PO DAILY PRN (Reason: Pain) isosorbide mononitrate 60 mg Tablet Extended Release 24 Hr 60 mg PO QAM cetirizine 10 mg tablet 10 mg PO DAILY PRN (Reason: Allergy Symptoms) bupropion HCl 300 mg tablet extended release 24 hr 300 mg PO QAM lactulose 10 gram/15 mL solution 15 ml PO DAILY Discharge Orders: Discharge ED (Routine); Ordered 07/05/23 Ordered By: Anand Dumont Referrals: Ayers,VERNON LiuN [Primary Care Provider] - Discharge Diet: Low Salt Discharge Activity: Increase activity as tolerated Patient Instructions: Opioid Safety, Pain Management Activity Restrictions/Additional Instructions: As we discussed while you are in the emergency department you have evidence of increased fluid in your lungs and around your heart. This is likely due to your lower dose of Lasix that you have been taking. We have provided a prescription for an increased dose to take 1 pill twice daily for the next 5 days to help improve your symptoms and then you may resume back to your normal dosing. You should follow-up with your regular doctor or remote sensing advisor in the next 2 weeks for reevaluation. If you have worsening symptoms or other concerns you are welcome to return to the emergency department at any time. Do not smoke cigarettes. Coding Level of Care Code ED Coroner'S Juror for Irena Hermosillo
--- NOTE | 2023-07-05 11:24 | XRR_ITS ---
PROCEDURE INFORMATION: Exam: XR Chest Exam date and time: 07/05/2023 11:36 AM Age: 67 years old Clinical indication: Chest pressure; Prior surgery; Surgery date: 6+ months; Surgery type: Cardiac stents x 2; Patient HX: Chest pain; SOB; Smoker x 40yrs; HX cardiac stent placement TECHNIQUE: Imaging protocol: Radiologic exam of the chest. Views: 1 view. COMPARISON: CR (CHEST, ) 07/02/2023 6:29 PM FINDINGS: Lungs: New mild bilateral pulmonary edema and/or pneumonitis. Pleural spaces: Unremarkable. No pleural effusion. No pneumothorax. Heart/Mediastinum: Unremarkable. No cardiomegaly. Vasculature: New mild pulmonary vascular congestion Bones/joints: Unremarkable. XR/XR chest 1V portable [id number] IMPRESSION: New mild bilateral pulmonary edema and/or pneumonitis with new pulmonary vascular congestion.
[2023-07-05 11:46] VITALS: BP 135/85; O2SAT 92
[2023-07-05 11:49] LABS: Basophils # 0.1 10^3/uL (0.0-0.1); Basophils % 0.5 %; Eosinophils # 0.2 10^3/uL (0.0-0.8); Eosinophils % 2.1 %; Hematocrit 39.8 % (36-47); Lymphocytes # 1.8 10^3/uL (0.8-4.8); Lymphocytes % 19.9 %; Mean Corpuscular HGB Conc 33.2 g/dL (30-55); Mean Corpuscular Volume 96.4 fl (85-98); Mean Platelet Volume 10.2 fL (7.4-10.4); Monocytes # 0.8 10^3/uL (0.2-0.9); Monocytes % 8.5 %; Neutrophils # 6.24 10^3/uL (1.8-7.7); Neutrophils % 68.2 %; Nucleated Red Blood Cells % 0 %; Platelet Count 205 10^3/cmm (157-399); Red Blood Count 4.13 10^6/uL (3.85-5.65); Red Cell Distribution Width 14.2 % (12.1-15.1); White Blood Count 9.15 10^3/uL (3.29-11.43)
[2023-07-05 12:03] LABS: INR 0.91 (0.8-1.2)
[2023-07-05 12:09] LABS: Anion Gap 16.6 (5-19); Blood Urea Nitrogen 30 mg/dL (8-23); Calcium 9.1 mg/dL (8.5-10.5); Carbon Dioxide 29 mmol/L (22-29); Chloride 98 mmol/L (98-107); Glomerular Filtration Rate 49.8 mL/min (90-130); Glucose 313 mg/dL (65-115); Osmolality Calculated 306 mOsm/kg (285-295); Potassium 4.6 mmol/L (3.5-5.1); Sodium 139 mmol/L (136-145)
[2023-07-05 12:11] LABS: Troponin(5th) Baseline 13 ng/L (0-10)
[2023-07-05 12:16] VITALS: BP 123/63
--- NOTE | 2023-07-05 12:57 | ECG_ITS ---
[facility] Test Date: 2023-07-05 Pat Name: Katie Andrews Department: Room: Gender: Female Immigration Associate: : 1955 Requested By: Anand Dumont Order Number: [id number] Dunia MD: Gilbert Maldonado M.D. Measurements Intervals [place] Rate: 76 P: 46 IA: 150 QRS: 29 QRSD: 69 T: 36 QT: 398 QTc: 450 Interpretive Statements SINUS RHYTHM WITH OCCASIONAL SUPRAVENTRICULAR PREMATURE COMPLEXES SEPTAL MYOCARDIAL INFARCTION , OF INDETERMINATE AGE [40+ ms Q WAVE IN V1/V2] Compared to ECG 07/05/2023 11:09:42 No significant changes Electronically Signed On 07-05-2023 13:55:31 CDT by Gilbert Maldonado M.D. [email or web address]
[2023-07-05 13:00] VITALS: BP 121/70
[2023-07-05] MEDS: FUROsemide 10 mg/mL SDV 4mL 40 MG IVP (13:19)
[2023-07-05 14:58] VITALS: BP 121/70; PULSE 88; RESP 22; TEMP 36.6; O2SAT 93
== END 2023-07-05 15:00 | disposition home or self-care (01) ==
PROVIDERS: Emergency Provider Emergency Medicine; PCP Nurse Practitioner Family
DX: R09.89 Other specified symptoms and signs involving the circulatory and respiratory systems (principal); Z79.01 Long term (current) use of anticoagulants; Z79.84 Long term (current) use of oral hypoglycemic drugs; Z79.02 Long term (current) use of antithrombotics/antiplatelets; Z79.82 Long term (current) use of aspirin; Z87.891 Personal history of nicotine dependence; I13.0 Hypertensive heart and chronic kidney disease with heart failure and stage 1 through stage 4 chronic kidney disease, or unspecified chronic kidney disease; N18.9 Chronic kidney disease, unspecified; I50.9 Heart failure, unspecified; I25.10 Atherosclerotic heart disease of native coronary artery without angina pectoris; J44.9 Chronic obstructive pulmonary disease, unspecified; E78.5 Hyperlipidemia, unspecified; Z90.2 Acquired absence of lung [part of]; Z90.5 Acquired absence of kidney
CPT/HCPCS: 36415; 71045; 80048; 84484; 85025; 85610; 93005; 96374; 99285; J1940

== ENCOUNTER 2023-08-01 15:44 | Emergency (ER) | payer MEDICARE, SELFPAY ==
[2023-08-01 15:58] VITALS: BP 144/101; PULSE 130; RESP 20; TEMP 36.3; O2SAT 93; BMI 40.8
[2023-08-01 16:00] VITALS: BP 144/88; PULSE 109; O2SAT 93
--- NOTE | 2023-08-01 16:02 | ED_ITS ---
HPI - Back Pain/Injury General: Chief Complaint: Back Pain/Injury Stated Complaint: back pain Time Seen by Provider: 08/01/23 15:48 History of Present Illness: A 67-year-old female comes in today with complaints of low back pain. Patient has a history of spina bifida and recurrent back pain. Patient also has a history of COPD, tobacco use disorder, hypertension, peripheral vascular disease, coronary artery disease, A-fib, anticoagulation heart failure. Review of Systems General: Reports: 10 or more systems reviewed and unremarkable except in HPI and below Musc: Reports: back pain PFSH ED PFSH: Medical History Anticoagulation adequate with anticoagulant therapy Atrial fibrillation Benign essential HTN CAD (coronary artery disease) Cholelithiasis Chronic kidney disease COPD (chronic obstructive pulmonary disease) Diastolic heart failure Dyslipidemia Hypertension Obstructive sleep apnea Peripheral edema Pulmonary HTN Surgical History History of lobectomy of lung History of PTCA History of resection of small bowel Hx of section Hx of unilateral nephrectomy Family History Father CAD (coronary artery disease), Onset Age: 46 MD Cancer Dementia Diabetes Mother CAD (coronary artery disease), Onset Age: 82 Diabetes Denies family history of Clotting disorder Chronic kidney disease (CKD) Suicide Anesthesia complication Bleeding disorder Lung disease Stroke Social History Smoking and tobacco/nicotine status: former use of tobacco/nicotine Alcohol intake: former Substance/Drug Use: current Substance/Drug use frequency: daily Other substance/drug use details: former Methamphetamine use Physical Exam Const: COMMON NORMALS: alert HENMT: COMMON NORMALS: normocephalic HEAD & SCALP: normocephalic Neck/C-Spine: COMMON NORMALS: full ROM Resp: COMMON NORMALS: normal respiratory effort AUSCULTATION: wheezes Cardio: RATE: tachycardic GI: COMMON NORMALS: Soft to palpation and non-tender PALPATION: Yes Soft to palpation Back/Pelvis: COMMON NORMALS: thoracic and lumbar spine normal to inspection Extremity: COMMON NORMALS: full ROM Neuro: SENSORIUM/ORIENTATION: Yes alert Skin: COMMON NORMALS: turgor normal GENERAL SKIN EXAM: turgor normal Course Vital Signs: Vital signs: Vital Signs Temperature 97.4 F L 08/01/23 15:58 Pulse Rate 109 H 08/01/23 16:00 Respiratory Rate 22 H 08/01/23 16:28 Blood Pressure 144/88 08/01/23 16:00 Pulse Oximetry 91 08/01/23 16:28 Oxygen Delivery Me thod Room Air 08/01/23 15:58 MDM - Back Pain/Injury Medical Decision Making 67-year-old female comes in today with back pain. Patient has a history of chronic back pain. Patient reports no falls or injuries. On exam patient was found to be tachycardic EKG showed atrial fibrillation with RVR. Patient does have a chronic history of atrial fibs and is anticoagulated with Eliquis and Plavix. Differential diagnosis includes not limited to urinary tract infection, ACS, CHF, pneumonia, musculoskeletal back pain. Patient was noted to be in atrial fib on her EKG with a RVR of 130. Patient was treated with 2 doses of metoprolol which brought her rate down to the 90s. Patient is anticoagulated and will continue with routine medicines at home. Patient was treated for her back pain with hydrocodone and methocarbamol for muscle relaxing. Patient was given 1 dose of 20 mg furosemide due to a bump in her BNP to 1700. Patient was pain-free with significant relief of back discomfort at discharge and feeling well to go home. Patient was stable and discharged. Labs 08/01/23 16:30 08/01/23 16:30 Radiology Impressions Chest X-Ray 08/01/23 16:09 IMPRESSION: No acute findings. Laboratory Results WBC 10.44 10^3/uL (3.29-11.43) 08/01/23 16:30 RBC 4.75 10^6/uL (3.85-5.65) 08/01/23 16:30 Hgb 14.90 g/dL (11.27-16.99) 08/01/23 16:30 Hct 44.8 % (36-47) 08/01/23 16:30 MCV 94.3 fl (85-98) 08/01/23 16:30 MCH 31.4 pg (27-33) 08/01/23 16:30 MCHC 33.3 g/dL (30-55) 08/01/23 16:30 RDW 14.0 % (12.1-15.1) 08/01/23 16:30 Plt Count 274 10^3/cmm (157-399) 08/01/23 16:30 MPV 10.1 fL (7.4-10.4) 08/01/23 16:30 Neut % (Auto) 68.6 % 08/01/23 16:30 Lymph % (Auto) 21.1 % 08/01/23 16:30 [place] % (Auto) 6.7 % 08/01/23 16:30 Eos % (Auto) 2.2 % 08/01/23 16:30 Baso % (Auto) 0.6 % 08/01/23 16:30 Neut # (Auto) 7.17 10^3/uL (1.8-7.7) 08/01/23 16:30 Lymph # (Auto) 2.2 10^3/uL (0.8-4.8) 08/01/23 16:30 [place] # (Auto) 0.7 10^3/uL (0.2-0.9) 08/01/23 16:30 Eos # (Auto) 0.2 10^3/uL (0.0-0.8) 08/01/23 16:30 Baso # (Auto) 0.1 10^3/uL (0.0-0.1) 08/01/23 16:30 Nucleated RBC % (auto) 0 % 08/01/23 16:30 Nucleated RBCs # 0.0 /100WBC 08/01/23 16:30 Sodium 141 mmol/L (136-145) 08/01/23 16:30 Potassium 4.0 mmol/L (3.5-5.1) 08/01/23 16:30 Chloride 100 mmol/L (98-107) 08/01/23 16:30 Carbon Dioxide 27 mmol/L (22-29) 08/01/23 16:30 Anion Gap 18.0 (5-19) 08/01/23 16:30 BUN 21 mg/dL (8-23) 08/01/23 16:30 Creatinine 1.0 mg/dL (0.5-0.9) H 08/01/23 16:30 GFR Calculation 55.6 mL/min (90-130) L 08/01/23 16:30 Glucose 305 mg/dL (65-115) H 08/01/23 16:30 Calculated Osmolality 306 mOsm/kg (285-295) H 08/01/23 16:30 Calcium 10.1 mg/dL (8.5-10.5) 08/01/23 16:30 Total Bilirubin 0.2 mg/dL (0.15-1.2) 08/01/23 16:30 AST 16 U/L (0-32) 08/01/23 16:30 ALT 15 U/L (0-33) 08/01/23 16:30 Alkaline Phosphatase 119 U/L (35-105) H 08/01/23 16:30 Troponin T Baseline 14 ng/L (0-10) H 08/01/23 16:30 NT-Pro-B Natriuret Pep 1715 pg/mL (0-125) H 08/01/23 16:30 Total Protein 7.3 g/dL (6.6-8.7) 08/01/23 16:30 Albumin 4.3 g/dL (3.5-5.2) 08/01/23 16:30 Globulin 3.0 g/dL (1.3-4.6) 08/01/23 16:30 Lipase 84 U/L (13-60) H 08/01/23 16:30 Urine Color Straw (Yellow) 08/01/23 16:30 Urine Appearance Clear (CLEAR) 08/01/23 16:30 Urine pH 5 (5-7) 08/01/23 16:30 Ur Specific [place] 1.010 (1.005-1.030) 08/01/23 16:30 Urine Protein Neg (Negative) 08/01/23 16:30 Urine Glucose (UA) 4+ (Normal) H 08/01/23 16:30 Urine Ketones Negative (Negative) 08/01/23 16:30 Urine Blood Neg (Negative) 08/01/23 16:30 Urine Nitrate Negative (Negative) 08/01/23 16:30 Urine Bilirubin Neg (Negative) 08/01/23 16:30 Urine Urobilinogen Norm mg/dL (Negative) 08/01/23 16:30 Ur Leukocyte Esterase Negative (Negative) 08/01/23 16:30 All radiology interpretation(s) finalized by discharge EKG Data EKG 1: EKG interpretation date: 08/01/23 EKG interpretation time: 16:34 Interpretation: EKG shows a tachycardic rhythm at 135 bpm. Rhythm is irregular showing atrial fibrillation with RVR. No ST elevation or ectopy otherwise is noted. When compared to prior exam done on July 05, A-fib is present however no other significant changes were noted. Artifact is present on EKG. Computer generated interpretation: Atrial fibrillation with rapid ventricular response, low QRS voltage in precordial leads, anteroseptal myocardial infarction, probably old, abnormal EKG, unconfirmed report. Discharge Plan Discharge Patient Disposition: Home Clinical Impression: Atrial fibrillation with RVR, Acute diastolic heart failure, Back muscle spasm Low back pain Qualifiers: Chronicity: acute Back pain laterality: midline Sciatica presence: without sciatica Qualified Code(s): M54.50 - Low back pain, unspecified Condition: Stable Prescriptions: New hydrocodone-acetaminophen 5-325 mg tablet 1 tab PO Q8H PRN (Reason: pain (scale score 7-10)) Qty: 12 0RF methocarbamol 750 mg tablet 750 mg PO TID PRN (Reason: back pain) Qty: 15 0RF No Action Eliquis 5 mg tablet 5 mg PO BID aripiprazole [Abilify] 15 mg tablet 15 mg PO QAM sertraline 100 mg tablet 100 mg PO QAM atorvastatin 80 mg tablet 80 mg PO BEDTIME Odefsey 200-25-25 mg tablet 1 tab PO BEDTIME nitroglycerin 0.4 mg tablet, sublingual 0.4 mg sublingual Q5M PRN (Reason: chest pain) albuterol sulfate 90 mcg/actuation HFA aerosol inhaler 2 puff inhalation QID PRN (Reason: shortness of breath or wheezing) hydrocodone-acetaminophen 5-325 mg tablet 1 tab PO .EVERY 4-6 HOURS MDD 3 tabs PRN (Reason: Pain) fluticasone propionate 50 mcg/actuation spray,suspension 1 - 2 spray INTRANASAL DAILY metformin 500 mg tablet 500 mg PO DAILY Rx Instructions: With breakfast Trelegy Ellipta 100-62.5-25 mcg blister with device 1 inh INHALATION DAILY potassium chloride 8 mEq capsule, extended release 16 meq PO BID metoprolol succinate 100 mg tablet extended release 24 hr 100 mg PO QPM clopidogrel 75 mg tablet 75 mg PO DAILY ferrous sulfate [Feosol] 325 mg (65 mg iron) Tablet 325 mg PO DAILY lisinopril 10 mg tablet 10 mg PO DAILY gabapentin 300 mg capsule 900 mg PO BID furosemide 20 mg tablet 20 - 40 mg PO DAILY celecoxib 100 mg capsule 100 mg PO DAILY One-A-Day Women VitaCraves 200 mcg Tablet,Chewable 1 tab PO DAILY ondansetron HCl 4 mg tablet 4 mg PO Q4H PRN (Reason: Nausea And Vomiting) aspirin 325 mg Tablet 325 mg PO DAILY PRN (Reason: Pain) isosorbide mononitrate 60 mg Tablet Extended Release 24 Hr 60 mg PO QAM cetirizine 10 mg tablet 10 mg PO DAILY PRN (Reason: Allergy Symptoms) bupropion HCl 300 mg tablet extended release 24 hr 300 mg PO QAM lactulose 10 gram/15 mL solution 15 ml PO DAILY furosemide 40 mg tablet 40 mg PO BID Qty: 10 0RF Discharge Orders: Discharge ED (Routine); Ordered 08/01/23 Ordered By: Wilbert Ayala Referrals: Alexa Ayers APN [Primary Care Provider] - Discharge Diet: Usual diet Discharge Activity: Increase activity as tolerated Patient Instructions: Back Pain (ED), Opioid Safety, Pain Management Activity Restrictions/Additional Instructions: Continue with routine medications as directed. Follow-up with primary care for further instructions and treatment. Return to ER for worsening symptoms such as severe chest pain, increased shortness of breath, or new concerns. 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
--- NOTE | 2023-08-01 16:09 | XRR_ITS ---
PROCEDURE INFORMATION: Exam: XR Chest Exam date and time: 08/01/2023 4:23 PM Age: 67 years old Clinical indication: Shortness of breath; Chest pressure; Prior surgery; Surgery date: 6+ months; Surgery type: Cardiac stents; Patient HX: Posterior chest pain; SOB; Tachycardia; Copd; Smoker TECHNIQUE: Imaging protocol: Radiologic exam of the chest. Views: 1 view. COMPARISON: CR (CHEST, ) 07/05/2023 11:36 AM FINDINGS: Lungs: Unremarkable. No consolidation. Pleural spaces: Unremarkable. No pleural effusion. No pneumothorax. Heart/Mediastinum: Unremarkable. No cardiomegaly. Bones/joints: Unremarkable. XR/XR chest 1V portable [id number] IMPRESSION: No acute findings.
--- NOTE | 2023-08-01 16:17 | ECG_ITS ---
[facility] Test Date: 2023-08-01 Pat Name: Katie Andrews Department: Room: Gender: Female Launch Operator: : 1955 Requested By: Wilbert Jones Order Number: [id number] Dunia MD: Gilbert Maldonado M.D. Measurements Intervals [place] Rate: 135 P: 0 CO: 0 QRS: 10 QRSD: 86 T: 56 QT: 309 QTc: 464 Interpretive Statements ATRIAL FIBRILLATION WITH RAPID VENTRICULAR RESPONSE LOW QRS VOLTAGE IN PRECORDIAL LEADS [QRS DEFLECTION < 1.0 mV IN CHEST LEADS] ANTEROSEPTAL MYOCARDIAL INFARCTION , PROBABLY OLD [40+ ms Q WAVE IN V1-V4] Compared to ECG 07/05/2023 12:57:08 Low QRS voltage now present Sinus rhythm no longer present Myocardial infarct finding still present Electronically Signed On 08-02-2023 10:20:17 CDT by Gilbert Maldonado M.D. [id number]
[2023-08-01 16:28] VITALS: RESP 22; O2SAT 91
[2023-08-01] MEDS: morphine 4 mg/mL SDV 1 mL IVP (16:28)
[2023-08-01] MEDS: ketorolac 30 mg/mL INJ 15 MG IVP (16:28)
[2023-08-01 16:45] LABS: Basophils # 0.1 10^3/uL (0.0-0.1); Basophils % 0.6 %; Eosinophils # 0.2 10^3/uL (0.0-0.8); Eosinophils % 2.2 %; Hematocrit 44.8 % (36-47); Lymphocytes # 2.2 10^3/uL (0.8-4.8); Lymphocytes % 21.1 %; Mean Corpuscular HGB Conc 33.3 g/dL (30-55); Mean Corpuscular Hemoglobin 31.4 pg (27-33); Mean Corpuscular Volume 94.3 fl (85-98); Mean Platelet Volume 10.1 fL (7.4-10.4); Monocytes # 0.7 10^3/uL (0.2-0.9); Monocytes % 6.7 %; Neutrophils # 7.17 10^3/uL (1.8-7.7); Neutrophils % 68.6 %; Nucleated Red Blood Cells % 0 %; Platelet Count 274 10^3/cmm (157-399); Red Blood Count 4.75 10^6/uL (3.85-5.65); White Blood Count 10.44 10^3/uL (3.29-11.43)
[2023-08-01] MEDS: metoprolol tartrate 1 mg/1 mL SDV 5 mL 5 MG IVP ×2 (16:47→17:21)
[2023-08-01 17:01] LABS: Troponin(5th) Baseline 14 ng/L (0-10)
[2023-08-01 17:06] LABS: Alanine Aminotransferase 15 U/L (0-33); Albumin Level 4.3 g/dL (3.5-5.2); Alkaline Phosphatase 119 U/L (35-105); Aspartate Amino Transferase 16 U/L (0-32); Blood Urea Nitrogen 21 mg/dL (8-23); Calcium 10.1 mg/dL (8.5-10.5); Carbon Dioxide 27 mmol/L (22-29); Chloride 100 mmol/L (98-107); Glomerular Filtration Rate 55.6 mL/min (90-130); Glucose 305 mg/dL (65-115); Lipase 84 U/L (13-60); NT Pro B Type Natriuretic Pept 1715 pg/mL (0-125); Osmolality Calculated 306 mOsm/kg (285-295); Sodium 141 mmol/L (136-145); Total Bilirubin 0.2 mg/dL (0.15-1.2); Total Protein 7.3 g/dL (6.6-8.7)
[2023-08-01 17:08] LABS: Add Urine Microscopic? NO; Charge for UA Resulting for Rev
[2023-08-01 17:18] LABS: Bilirubin Urine Neg (Negative); Blood Urine Neg (Negative); Glucose Urine UA 4+ (Normal); Ketones Urine Negative (Negative); Leukocyte Esterase Urine Negative (Negative); Nitrate Urine Negative (Negative); Protein Urine Neg (Negative); Urine Appearance Clear (CLEAR); Urine Color Straw (Yellow); Urobilinogen Urine Norm (Negative); pH Urine 5 (5-7)
[2023-08-01] MEDS: FUROsemide 10 mg/mL SDV 2mL 20 MG IVP (17:22)
[2023-08-01] MEDS: LORazepam 2 mg/mL INJ 1 mL 1 MG IVP (17:24)
[2023-08-01] MEDS: HYDROcodone-acetaminophen 5-325 mg Tablet 2 TAB PO (17:47)
[2023-08-01 17:52] VITALS: PULSE 112; O2SAT 91
== END 2023-08-01 17:53 | disposition home or self-care (01) ==
PROVIDERS: Emergency Provider Nurse Practitioner Family; PCP Nurse Practitioner Family
DX: M54.50 Low back pain, unspecified (principal); I48.20 Chronic atrial fibrillation, unspecified; M62.830 Muscle spasm of back; Z79.01 Long term (current) use of anticoagulants; Z79.84 Long term (current) use of oral hypoglycemic drugs; Z79.82 Long term (current) use of aspirin; Z79.02 Long term (current) use of antithrombotics/antiplatelets; Z87.891 Personal history of nicotine dependence; I13.0 Hypertensive heart and chronic kidney disease with heart failure and stage 1 through stage 4 chronic kidney disease, or unspecified chronic kidney disease; N18.9 Chronic kidney disease, unspecified; I50.31 Acute diastolic (congestive) heart failure; I25.10 Atherosclerotic heart disease of native coronary artery without angina pectoris; J44.9 Chronic obstructive pulmonary disease, unspecified; E78.5 Hyperlipidemia, unspecified; Z90.2 Acquired absence of lung [part of]; Z90.5 Acquired absence of kidney
CPT/HCPCS: 71045; 80053; 81003; 83690; 83880; 84484; 85025; 93005; 96374; 96375; 96376; 99285; J1885; J1940; J2060; J2270; J3490

== ENCOUNTER 2023-09-02 08:33 | Emergency (ER) | payer MEDICARE, MEDICAID, SELFPAY ==
[2023-09-02 08:45] VITALS: BP 157/91; PULSE 68; TEMP 36.6; O2SAT 94; BMI 38.9
[2023-09-02 08:55] LABS: Glucose Point of Care 288 mg/dL (70-110)
--- NOTE | 2023-09-02 09:31 | ECG_ITS ---
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 Measurements Intervals [place] Rate: 69 P: 69 SC: 154 QRS: 54 QRSD: 89 T: 64 QT: 399 QTc: 430 Interpretive Statements SINUS RHYTHM SEPTAL MYOCARDIAL INFARCTION , PROBABLY OLD [40+ ms Q WAVE IN V1/V2] Compared to ECG 08/01/2023 16:17:16 Atrial fibrillation no longer present Electronically Signed On 09-03-2023 16:45:05 SPRAY CREW by Caroline Marin M.D. [email or web address] [id number]
[2023-09-02 09:43] LABS: Basophils # 0.1 10^3/uL (0.0-0.1); Basophils % 0.6 %; Eosinophils # 0.2 10^3/uL (0.0-0.8); Lymphocytes # 1.2 10^3/uL (0.8-4.8); Lymphocytes % 12.4 %; Mean Corpuscular HGB Conc 32.8 g/dL (30-55); Mean Corpuscular Hemoglobin 30.8 pg (27-33); Mean Corpuscular Volume 93.9 fl (85-98); Mean Platelet Volume 10.1 fL (7.4-10.4); Monocytes # 0.7 10^3/uL (0.2-0.9); Monocytes % 7.6 %; Neutrophils # 7.36 10^3/uL (1.8-7.7); Neutrophils % 76.8 %; Nucleated Red Blood Cells % 0 %; Platelet Count 239 10^3/cmm (157-399); Red Blood Count 4.58 10^6/uL (3.85-5.65); Red Cell Distribution Width 13.8 % (12.1-15.1); White Blood Count 9.59 10^3/uL (3.29-11.43)
[2023-09-02] MEDS: sodium chloride 0.9% 1,000 ML 999 ML IV (09:58)
[2023-09-02 10:00] LABS: Alanine Aminotransferase 22 U/L (0-33); Albumin Level 4.3 g/dL (3.5-5.2); Alkaline Phosphatase 134 U/L (35-105); Aspartate Amino Transferase 18 U/L (0-32); Blood Urea Nitrogen 25 mg/dL (8-23); Calcium 10.6 mg/dL (8.5-10.5); Carbon Dioxide 28 mmol/L (22-29); Chloride 97 mmol/L (98-107); Globulin 3.2 g/dL (1.3-4.6); Glomerular Filtration Rate 37.7 mL/min (90-130); Glucose 250 mg/dL (65-115); Osmolality Calculated 301 mOsm/kg (285-295); Sodium 139 mmol/L (136-145); Total Bilirubin 0.4 mg/dL (0.15-1.2); Total Protein 7.5 g/dL (6.6-8.7)
[2023-09-02] MEDS: insulin regular-human 100 units/1 mL 5 UNIT IVP (10:00)
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
[2023-09-02 10:36] LABS: Glucose Point of Care 200 mg/dL (70-110)
[2023-09-02 10:50] LABS: Add Urine Microscopic? NO; Charge for UA Resulting for Rev
[2023-09-02 10:58] LABS: Bilirubin Urine Neg (Negative); Blood Urine Neg (Negative); Glucose Urine UA Norm (Normal); Ketones Urine Negative (Negative); Leukocyte Esterase Urine Negative (Negative); Nitrate Urine Negative (Negative); Protein Urine Neg (Negative); Specific Gravity, Urine 1.015 (1.005-1.030); Urine Appearance Clear (CLEAR); Urine Color Yellow (Yellow); Urobilinogen Urine Norm (Negative); pH Urine 5 (5-7)
== END 2023-09-02 12:09 | disposition home or self-care (01) ==
PROVIDERS: Emergency Provider Family Medicine; PCP Nurse Practitioner Family
DX: E11.22 Type 2 diabetes mellitus with diabetic chronic kidney disease (principal); I13.0 Hypertensive heart and chronic kidney disease with heart failure and stage 1 through stage 4 chronic kidney disease, or unspecified chronic kidney disease; N18.9 Chronic kidney disease, unspecified; I50.9 Heart failure, unspecified; Z79.01 Long term (current) use of anticoagulants; Z79.02 Long term (current) use of antithrombotics/antiplatelets; Z79.82 Long term (current) use of aspirin; Z79.84 Long term (current) use of oral hypoglycemic drugs; Z87.891 Personal history of nicotine dependence; I25.2 Old myocardial infarction; J44.9 Chronic obstructive pulmonary disease, unspecified; E78.5 Hyperlipidemia, unspecified; I25.10 Atherosclerotic heart disease of native coronary artery without angina pectoris
CPT/HCPCS: 36415; 36416; 80053; 81003; 82962; 85025; 93005; 96374; 99284; J1815; J7030

== ENCOUNTER 2023-09-21 17:30 | Inpatient (IN) | payer MEDICARE, SELFPAY ==
[2023-09-21 17:33] VITALS: BP 205/148; PULSE 83; RESP 18; TEMP 36.9; O2SAT 91; BMI 39.9
--- NOTE | 2023-09-21 17:34 | XRR_ITS ---
PROCEDURE INFORMATION: Exam: XR Chest Exam date and time: 09/21/2023 6:24 PM Age: 67 years old Clinical indication: Cough and dyspnea; Additional info: Dyspnea/cough TECHNIQUE: Imaging protocol: Radiologic exam of the chest. Views: 1 view. COMPARISON: CR XR chest 1V portable [id number] 08/01/2023 4:23 PM FINDINGS: Lungs: Peripheral linear areas of scarring noted in both lungs. Subtle opacity in the medial right lung base. Pleural spaces: Unremarkable. No pleural effusion. No pneumothorax. Heart/Mediastinum: Borderline cardiomegaly. Bones/joints: Unremarkable. XR/XR chest 1V portable [id number] IMPRESSION: Subtle opacity in the medial right lung base, could reflect a developing infiltrate.
--- NOTE | 2023-09-21 17:39 | ECG_ITS ---
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 Measurements Intervals [place] Rate: 90 P: 91 MN: 150 QRS: 47 QRSD: 87 T: 66 QT: 383 QTc: 470 Interpretive Statements SINUS RHYTHM WITH SINUS ARRHYTHMIA LOW QRS VOLTAGE IN PRECORDIAL LEADS [QRS DEFLECTION < 1.0 mV IN CHEST LEADS] SEPTAL MYOCARDIAL INFARCTION , PROBABLY OLD [40+ ms Q WAVE IN V1/V2] Compared to ECG 09/02/2023 09:31:16 Low QRS voltage now present Myocardial infarct finding still present Electronically Signed On 09-21-2023 17:45:50 SENIOR QA TESTER by Alberta Archer M.D. [id number]
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
[2023-09-21 17:50] VITALS: PULSE 91; O2SAT 93
[2023-09-21] MEDS: ipratropium-albuterol 3 mL Neb INHALATION (18:12)
[2023-09-21 18:16] VITALS: PULSE 80; RESP 18; O2SAT 94
[2023-09-21 18:18] VITALS: BP 182/109; PULSE 98; RESP 20; O2SAT 98
[2023-09-21 18:34] LABS: Basophils # 0.1 10^3/uL (0.0-0.1); Basophils % 0.4 %; Eosinophils # 0.1 10^3/uL (0.0-0.8); Eosinophils % 0.3 %; Hematocrit 39.9 % (36-47); Lymphocytes % 6.8 %; Mean Corpuscular HGB Conc 32.1 g/dL (30-55); Mean Corpuscular Hemoglobin 30.3 pg (27-33); Mean Corpuscular Volume 94.5 fl (85-98); Mean Platelet Volume 10.1 fL (7.4-10.4); Monocytes # 0.7 10^3/uL (0.2-0.9); Monocytes % 4.8 %; Neutrophils # 12.47 10^3/uL (1.8-7.7); Neutrophils % 86.4 %; Nucleated Red Blood Cells % 0 %; Platelet Count 210 10^3/cmm (157-399); Red Blood Count 4.22 10^6/uL (3.85-5.65); Red Cell Distribution Width 13.9 % (12.1-15.1); White Blood Count 14.44 10^3/uL (3.29-11.43)
[2023-09-21 18:35] LABS: ABG PCO2 54.9 mmHg (35-45); ABG PH Result 7.35 (7.35-7.45); Arterial Blood Gas Hematocrit 39.7 % (37-47); Base Excess ABG 3.6 mmol/L (-2.0-2.0); Blood Gas Operator Identificat AMH; Blood Gas Sample Site Brachial, right; Blood Gas Sample Type Arterial; Carboxyhemoglobin 2.9 %THgb (0.4-20.1); HCO3 ABG 30.5 mmol/L (22-26); HGB O2 Sat 89.3 % (95-100); Ionized Calcium Level - ABG 1.2 mmol/L (1.1-1.4); Methemoglobin 0.6 % (0.4-1.5); Oxygen Device NC; Oxygen Saturation ABG 92.5; PO2 ABG 61.3 mmHg (80.0-100.0); PO2 FiO2 Ratio Arterial Blood 0; Total Hemoglobin 12.9 g/dL (12-16)
[2023-09-21 18:53] LABS: Troponin(5th) Baseline 29 ng/L (0-10)
[2023-09-21 19:00] LABS: Alanine Aminotransferase 43 U/L (0-33); Albumin Level 4.5 g/dL (3.5-5.2); Alkaline Phosphatase 126 U/L (35-105); Anion Gap 16.1 (5-19); Aspartate Amino Transferase 34 U/L (0-32); Blood Urea Nitrogen 16 mg/dL (8-23); Calcium 9.1 mg/dL (8.5-10.5); Carbon Dioxide 27 mmol/L (22-29); Chloride 104 mmol/L (98-107); Globulin 2.7 g/dL (1.3-4.6); Glomerular Filtration Rate 62.8 mL/min (90-130); Glucose 226 mg/dL (65-115); NT Pro B Type Natriuretic Pept 1675 pg/mL (0-125); Osmolality Calculated 304 mOsm/kg (285-295); Potassium 4.1 mmol/L (3.5-5.1); Sodium 143 mmol/L (136-145); Total Bilirubin 0.5 mg/dL (0.15-1.2); Total Protein 7.2 g/dL (6.6-8.7)
--- NOTE | 2023-09-21 19:34 | ECG_ITS ---
[facility] Test Date: 2023-09-21 Pat Name: Katie Andrews Department: Room: Gender: Female Molecular Physicist: : 1955 Requested By: Jeffy Dhaliwal Order Number: [id number] Dunia MD: Sina Bey M.D. Measurements Intervals [place] Rate: 70 P: 81 WV: 148 QRS: 48 QRSD: 76 T: 75 QT: 389 QTc: 422 Interpretive Statements SINUS RHYTHM LOW QRS VOLTAGE IN PRECORDIAL LEADS [QRS DEFLECTION < 1.0 mV IN CHEST LEADS] SEPTAL MYOCARDIAL INFARCTION , PROBABLY OLD [40+ ms Q WAVE IN V1/V2] Compared to ECG 09/21/2023 17:39:37 Sinus arrhythmia no longer present Myocardial infarct finding still present Electronically Signed On 09-22-2023 14:40:40 CHEMICAL EQUIPMENT CONTROLLER by Sina Bey M.D. [email or web address]
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
[2023-09-21] MEDS: cefTRIAXone 2,000 MG in sodium chloride 0.9% (plus) 50 ML 100 MG IV (20:30)
[2023-09-21 20:47] LABS: Add Urine Culture? No; Add Urine Microscopic? YES; Bacteria Urine 1+ /hpf; Bilirubin Urine Neg (Negative); Blood Urine Neg (Negative); Glucose Urine UA 4+ (Normal); Ketones Urine Negative (Negative); Leukocyte Esterase Urine Negative (Negative); Nitrate Urine Negative (Negative); Protein Urine 1+ (Negative); Urine Appearance Clear (CLEAR); Urine Color Yellow (Yellow); Urobilinogen Urine Neg (Negative); pH Urine 6.5 (5-7)
[2023-09-21 20:59] LABS: Troponin 5 2HR 33.43 ng/L (0-10); Troponin 5 2HR Delta 4.43 ABS# (0-10)
--- NOTE | 2023-09-21 21:24 | CTR_ITS ---
PROCEDURE INFORMATION: Exam: CTA Chest With Contrast Exam date and time: 09/21/2023 9:38 PM Age: 67 years old Clinical indication: Hyperventilation and shortness of breath; Additional info: Hypoxia TECHNIQUE: Imaging protocol: Computed tomographic angiography of the chest with contrast. Exam focused on the arteries. 3D rendering (Not supervised by radiologist): MIP and/or 3D reconstructed images were created by the technologist. Radiation optimization: All CT scans at this facility use at least one of these dose optimization techniques: automated exposure control; mA and/or kV adjustment per patient size (includes targeted exams where dose is matched to clinical indication); or iterative reconstruction. Contrast material: OMNI 350; Contrast volume: 96 ml; Contrast route: INTRAVENOUS (IV); REPORTING DATA: Count of CT and Cardiac NM exams in prior 12 months: This patient has received 3 known CTs and 0 known cardiac nuclear medicine studies in the 12 months prior to the current study. COMPARISON: CT angio chest PE protcl [id number] 07/02/2023 8:05 PM RADIATION DOSE METRICS: Total DLP (mGy-cm): 612.78 FINDINGS: Pulmonary arteries: Normal. No pulmonary emboli. Aorta: Unremarkable. No aortic aneurysm. No aortic dissection. Lungs: Patchy bilateral largely dependent atelectasis versus infiltrate. Pleural spaces: Small bilateral pleural effusions. Heart: Unremarkable. No cardiomegaly. No pericardial effusion. Coronary arteries: Coronary artery atherosclerotic calcifications. Lymph nodes: Several subcentimeter short axis nonspecific mediastinal lymph nodes. Liver: Hepatic steatosis. Kidneys and ureters: Left kidney benign parenchymal calcification. Bones/joints: Unremarkable. No acute fracture. Soft tissues: Unremarkable. CT/CT angio chest PE protcl [id number] IMPRESSION: 1. Negative for pulmonary embolus. 2. Small bilateral pleural effusions. 3. Coronary artery atherosclerotic calcifications. 4. Hepatic steatosis. 5. Left kidney benign parenchymal calcification. 6. Several subcentimeter short axis nonspecific mediastinal lymph nodes. 7. Patchy bilateral largely dependent atelectasis versus infiltrate.
[2023-09-21] MEDS: iohexol 350 mg/mL 500 mL Btl (per mL) IV (21:41)
[2023-09-21 22:21] LABS: Lactic Sepsis W/Reflex 2.3 mmol/L (0.5-2.2)
[2023-09-21] MEDS: labetalol 5 mg/mL SDV 20mL 10 MG IVP (22:36)
[2023-09-21 22:59] VITALS: BP 193/132; PULSE 93; RESP 16; O2SAT 94
--- OUTSIDE RECORDS SUMMARY | 2023-09-21 23:12 | XMS_ITS | Patient Health Record ---
Author Name Unknown Organization [facility] Address [address] [place] [address] Care Team Providers Care Shift Foreman Name Role Phone Armen Alexa Primary Care Provider [facility] Unavailable Unavailable Jose R Jang JR Unavailable [phone] Clay Andujar Unavailable ALLERGIES Allergen (clinical drug ingredient) Drug/Non Drug Allergy documented on EMR Reaction Allergy Type Onset Date Status Bee Sting Unknown Allergy Active Cat dander Cat Dander Unknown Allergy Active trifluoperazine Trifluoperazine Unknown Drug Allergy Active RESULTS Component Value Reference Range Notes CBC w\ Auto Diff [id number] Reviewed date:01/20/2023 06:48:35 AM Interpretation: Performing Lab: Notes/Report: Diagnosis Description: Essential (primary) hypertension WBC 9.2 4.5-11.0 X10'3 RBC 4.76 4.00-5.20 X10'6 Hgb 14.8 12.0-16.0 G/DL Hct 47.8 36.0-46.0 % MCV 100.4 80.0-100.0 FL MCH 31.1 27.0-31.0 PG MCHC 31.0 31.0-37.0 G/DL Platelet 266 150-400 X10'3 RDW-SD 53.7 35.0-49.0 FL RDW-CV 14.6 12.2-15.6 % MPV 10.3 9.2-12.0 FL Neutro Auto% 86.2 42.0-75.0 % Lymph Auto% 9.3 20.0-51.0 % [place] Auto% 2.9 1.7-9.3 % Eos Auto% .2 .0-6.0 % Baso Auto% 0.3 0.0-1.0 % Imm Gran% 1.1 .0-.4 % Neutro Abs 7.90 .80-7.70 Absolute Neutrophil Count 7900 Lymph Abs .85 .10-4.10 [place] Abs .27 .20-1.00 Eos Abs .02 .00-.40 Baso Abs .03 .00-.10 Imm Gran Abs .10 .00-.10 NRBC# .00 .00-.20 X10'3 NRBC% .00 .00-.20 /100 int act WBC's Comprehensive Metabolic Pane l [id number] Reviewed date:01/20/2023 06:47:20 AM Interpretation: Performing Lab: Notes/Report: Diagnosis Description: Essential (primary) hypertension Glucose Serum 379 71-110 MG/DL BUN 36 7-21 MG/DL Creat 1.01 .51-1.17 MG/DL R-rrqewf-f-benzoquinone imine (NAPQI) is a metabolite of acetaminophen, NAPQI concentrations of apparoximately 10 mg/L correlation to toxic levels of acetaminophen demonstrates a greater than or equil to 10% change in results. NAPQI concentrations greater than this may lead to falsely depressed results for patient samples. Use of this assay is not recommended for patients undergoing treatment with phenindione, due to the potential for falsely depressed results. GFR 61.8 Calculation per formed from GFR calculator provided by the National Kidney Foundation. Glomerular Filtration rate(GRF) is the best overall index of kidney function. Normal GFR varies according to age,sex, body size, and declines with age. The National Kidney Foundation recommends using the CKD-EPI Creatinine Equation(2009) to estimate GFR. BUN/Creat Ratio 35.6 12.0-20.0 % Total Protein 6.9 5.8-8.0 G/DL Albumin 4.3 3.2-4.8 G/DL Globulin 2.5 2.3-3.5 G/DL Alb/Glob 1.7 0.8-2.2 Calcium 10.0 8.7-10.4 MG/DL Sodium 138 136-145 MMOL/L Potassium 4.9 3.5-5.1 MMOL/L Chloride 95 98-107 MMOL/L CO2 31.3 20.0-31.0 MMOL/L Anion Gap 17 5-15 Alk Phos 106 46-116 Bili Total .6 .3-1.2 MG/DL Use of this ass ay is not recommended for patients undergoing treatment with eltrombopag due to the potential for falsely elevated results. AST/SGOT 14 15-37 UNIT/L ALT/SGPT 44 12-78 UNIT/L Osmo Serum,Calculated 310 280-300 MOSM/KG Direct LDL [id number] Reviewed date:06/20/2023 01:15:21 PM Interpretation: Performing Lab: Notes/Report: DLDL 88 REFERENCE RANGES: < 100 mg/dl DESIRABLE LDL 130-159 mg/dl BORDERLINE HIGH RISK LDL CBC w\ Auto Diff [id number] Reviewed date:07/27/2023 10:41:58 AM Interpretation: Performing Lab: Notes/Report: Diagnosis Description: Other fdc (current) drug therapy WBC 7.4 4.5-11.0 X10'3 RBC 4.33 4.00-5.20 X10'6 Hgb 13.8 12.0-16.0 G/DL Hct 43.0 36.0-46.0 % MCV 99.3 80.0-100.0 FL MCH 31.9 27.0-31.0 PG MCHC 32.1 31.0-37.0 G/DL Platelet 220 150-400 X10'3 RDW-SD 53.1 35.0-49.0 FL RDW-CV 14.4 12.2-15.6 % MPV 10.7 9.2-12.0 FL Neutro Auto% 70.2 42.0-75.0 % Lymph Auto% 19.0 20.0-51.0 % [place] Auto% 6.7 1.7-9.3 % Eos Auto% 3.1 .0-6.0 % Baso Auto% 0.5 0.0-1.0 % Imm Gran% .5 .0-.4 % Neutro Abs 5.21 .80-7.70 Absolute Neutrophil Count 5210 Lymph Abs 1.41 .10-4.10 [place] Abs .50 .20-1.00 Eos Abs .23 .00-.40 Baso Abs .04 .00-.10 Imm Gran Abs .04 .00-.10 NRBC# .00 .00-.20 X10'3 NRBC% .00 .00-.20 /100 int act WBC's Comprehensive Metabolic Pane l [id number] Reviewed date:07/27/2023 10:41:41 AM Interpretation: Performing Lab: Notes/Report: Diagnosis Description: Abnormal finding of blood chemistry, unspecified Glucose Serum 350 71-110 MG/DL Testing perfor med at [facility], [address] [place] [address] [place] [address]. CLIA ID#: [id number] BUN 25 7-21 MG/DL Creat 1.30 .51-1.17 MG/DL R-fhvvmv-a-benzoquinone imine (NAPQI) is a metabolite of acetaminophen, NAPQI concentrations of apparoximately 10 mg/L correlation to toxic levels of acetaminophen demonstrates a greater than or equil to 10% change in results. NAPQI concentrations greater than this may lead to falsely depressed results for patient samples. Use of this assay is not recommended for patients undergoing treatment with phenindione, due to the potential for falsely depressed results. GFR 45.3 Calculation per formed from GFR calculator provided by the National Kidney Foundation. Glomerular Filtration rate(GRF) is the best overall index of kidney function. Normal GFR varies according to age,sex, body size, and declines with age. The National Kidney Foundation recommends using the CKD-EPI Creatinine Equation(2009) to estimate GFR. BUN/Creat Ratio 19.2 12.0-20.0 % Total Protein 6.5 5.8-8.0 G/DL Albumin 4.1 3.2-4.8 G/DL Globulin 2.4 2.3-3.5 G/DL Alb/Glob 1.7 0.8-2.2 Calcium 9.1 8.7-10.4 MG/DL Sodium 139 136-145 MMOL/L Potassium 4.8 3.5-5.1 MMOL/L Chloride 101 98-107 MMOL/L CO2 30.9 20.0-31.0 MMOL/L Anion Gap 12 5-15 Alk Phos 127 46-116 Bili Total .4 .3-1.2 MG/DL Use of this ass ay is not recommended for patients undergoing treatment with eltrombopag due to the potential for falsely elevated results. AST/SGOT 26 15-37 UNIT/L ALT/SGPT 19 12-78 UNIT/L Osmo Serum,Calculated 306 280-300 MOSM/KG Hepatitis C [place] PCR [id number] Reviewed date:07/31/2023 08:31:13 AM Interpretation: Performing Lab: Notes/Report: HCV Qnt by PCR Not Detected HCV Qnt by PCR log Not Detected HCV Qnt by PCR Interp Not Detected Not Detected INTERPRETIVE INFORMATION: HCV by Quantitative NAAT Normal range for this assay is Not Detected . The quantitative range of this assay is 10 - 100,000,000 IU/mL (1.0 - 8.0 log IU/mL). Lower limit of quantitation (LLoQ): 10 IU/mL (1.0 log IU/mL) LLoQ values do not apply to diluted specimens. A result of Not Detected does not rule out the presence of inhibitors in the patient specimen or hepatitis C virus RNA concentrations below the level of detection of the test. Care should be taken when interpreting any single viral load determination. This test should not be used for blood donor screening, associated re-entry protocols, or for screening Human Cell, Tissues and Cellular Tissue-Based Products (HCT/P). Performed By: [facility] [address] [place] [address] Software Design Analyst: Ian Arellano MD, PhD CLIA Number: [id number] CBC w\ Auto Diff [id number] Reviewed date:07/29/2023 08:24:12 AM Interpretation: Performing Lab: Notes/Report: Diagnosis Description: Human immunodeficiency virus [HIV] disease WBC 9.6 4.5-11.0 X10'3 RBC 5.14 4.00-5.20 X10'6 Hgb 16.1 12.0-16.0 G/DL Hct 48.5 36.0-46.0 % MCV 94.4 80.0-100.0 FL MCH 31.3 27.0-31.0 PG MCHC 33.2 31.0-37.0 G/DL Platelet 272 150-400 X10'3 RDW-SD 48.8 35.0-49.0 FL RDW-CV 14.0 12.2-15.6 % MPV 9.6 9.2-12.0 FL Neutro Auto% 69.6 42.0-75.0 % Lymph Auto% 20.0 20.0-51.0 % [place] Auto% 8.1 1.7-9.3 % Eos Auto% 1.0 .0-6.0 % Baso Auto% 0.5 0.0-1.0 % Imm Gran% .8 .0-.4 % Neutro Abs 6.69 .80-7.70 Absolute Neutrophil Count 6690 Lymph Abs 1.92 .10-4.10 [place] Abs .78 .20-1.00 Eos Abs .10 .00-.40 Baso Abs .05 .00-.10 Imm Gran Abs .08 .00-.10 NRBC# .00 .00-.20 X10'3 NRBC% .00 .00-.20 /100 int act WBC's Comprehensive Metabolic Pane l [id number] Reviewed date:07/29/2023 08:24:02 AM Interpretation: Performing Lab: Notes/Report: Diagnosis Description: Human immunodeficiency virus [HIV] disease Glucose Serum 170 71-110 MG/DL Testing perfor med at [facility], [address] [place] [address] [place] [address]. CLIA ID#: [id number] BUN 23 7-21 MG/DL Creat 1.21 .51-1.17 MG/DL H-knvesz-u-benzoquinone imine (NAPQI) is a metabolite of acetaminophen, NAPQI concentrations of apparoximately 10 mg/L correlation to toxic levels of acetaminophen demonstrates a greater than or equil to 10% change in results. NAPQI concentrations greater than this may lead to falsely depressed results for patient samples. Use of this assay is not recommended for patients undergoing treatment with phenindione, due to the potential for falsely depressed results. GFR 49.7 Calculation per formed from GFR calculator provided by the National Kidney Foundation. Glomerular Filtration rate(GRF) is the best overall index of kidney function. Normal GFR varies according to age,sex, body size, and declines with age. The National Kidney Foundation recommends using the CKD-EPI Creatinine Equation(2009) to estimate GFR. BUN/Creat Ratio 19.0 12.0-20.0 % Total Protein 7.6 5.8-8.0 G/DL Albumin 4.8 3.2-4.8 G/DL Globulin 2.9 2.3-3.5 G/DL Alb/Glob 1.7 0.8-2.2 Calcium 10.1 8.7-10.4 MG/DL Sodium 140 136-145 MMOL/L Potassium 4.6 3.5-5.1 MMOL/L Chloride 104 98-107 MMOL/L CO2 28.6 20.0-31.0 MMOL/L Anion Gap 12 5-15 Alk Phos 141 46-116 Bili Total .5 .3-1.2 MG/DL Use of this ass ay is not recommended for patients undergoing treatment with eltrombopag due to the potential for falsely elevated results. AST/SGOT 26 15-37 UNIT/L ALT/SGPT 22 12-78 UNIT/L Osmo Serum,Calculated 298 280-300 MOSM/KG SYPHILIS TEST, QUAL (RPR) 86 592 Reviewed date:07/29/2023 08:23:52 AM Interpretation: Performing Lab: Notes/Report: Diagnosis Description: Human immunodeficiency virus [HIV] disease RPR Non-Reactive Sedimentation Rate 25853 Reviewed date:07/29/2023 08:24:15 AM Interpretation: Performing Lab: Notes/Report: Diagnosis Description: Human immunodeficiency virus [HIV] disease Sed Rate 23 0-30 MM/HR Lymphocyte Subset CD4 68623 Reviewed date:07/31/2023 08:31:20 AM Interpretation: Performing Lab: Notes/Report: Diagnosis Description: Human immunodeficiency virus [HIV] disease Absolute Lymphocytes See Note INTERPRETIVE INFORMATION: CD4 Percent and Absolute Count The CD4 cells are [place] T-cells expressing both CD3 and CD4. CD4 percentage is reported as a percent of total lymphocytes. CD4 T-cells levels are a criterion for categorizing HIV-related clinical conditions by CDC's classification system for HIV infection. The measurement of CD4 T-cell levels has been used to establish decision points for initiating P. jirovecii prophylaxis, antiviral therapy and to monitor the efficacy of treatment. The Public Health Service (PHS) has recommended that CD4 T-cell levels be monitored every three to six months in all HIV-infected persons. This test was developed and its performance characteristics determined by [facility]. It has not been cleared or approved by the US Food and Drug Administration. This test was performed in a CLIA certified laboratory and is intended for clinical purposes. Performed By: [facility] [address] [place] [id number] Software Design Analyst: Ian Arellano MD, PhD CLIA Number: [id number] % CD4-[place] cells 49 35-68 % Absolute CD4+Cells [phone] Hepatitis Panel Acute 93612 Reviewed date:07/29/2023 08:23:49 AM Interpretation: Performing Lab: Notes/Report: Diagnosis Description: Human immunodeficiency virus [HIV] disease Hep A IgM Non-Reactive Hep.B Core IgM Non-Reactive Must revert t o Equivocal Hepatitis Bs AG Non-Reactive Hepatitis C AB Reactive SENT FOR [facility] IRMATION TESTING - [facility]. Quantiferon-TB Gold 44012 Reviewed date:07/31/2023 08:31:16 AM Interpretation: Performing Lab: Notes/Report: Diagnosis Description: Human immunodeficiency virus [HIV] disease Quantiferon-TB Gold Plus Negative Ref Range: Negative Interferon gamma release is measured for specimens from each of the four collection tubes. A qualitative result (Negative,Positive,or indeterminate) is based on interpretation of four values, NIL, MITOGEN minus NIL(MITOGEN-NIL),TB1 minus NIL(TB1-NIL) and TB2 minus NIL (TB2-NIL). The NIL value represents nonspecific reactivity produced by the patient specimen. The MITOGEN-NIL value serves as the positive control for the patient specimen, demonstrating successful lymphocyte activity. The TB1-NIL and TB2-NIL values represent lymphocyte reactivity specifically stimulated by the TB antigen. An overall Negative result does not completely rule out TB infection. QFT-Plus is an indirect test for M.tuberculosis infection (including disease) and result from QFT-PLus testing must be in conjunction with risk assessment, radiography, and other medical and diagnostic evaluations. [place] 70071 Reviewed date:07/29/2023 08:23:55 AM Interpretation: Performing Lab: Notes/Report: Diagnosis Description: Human immunodeficiency virus [HIV] disease CRP 2.15 .40-1.00 MG/DL HIV-1 Quantitative NAAT--875 36 Reviewed date:08/03/2023 08:52:13 AM Interpretation: Performing Lab: Notes/Report: Diagnosis Description: Human immunodeficiency virus [HIV] disease HIV-1 Qnt by PCR(copy/ml) Not Detected HIV-1 Qnt by PCR(log copy/ml) Not Detected HIV-1 Qnt by PCR Interp Not Detected Not Detected INTERPRETIVE INFORMATION: HIV-1 by Quantitative NAAT, Plasma Normal range for this assay is Not Detected . The quantitative range of this assay is 1.47-7.00 log copies/mL (30-10,000,000 copies/mL). An interpretation of Not Detected does not rule out the presence of inhibitors or HIV-1 RNA concentration below the level of detection of the assay. Care should be taken in the interpretation of any single viral load determination. The clinical significance of changes in HIV-1 RNA concentration has not been fully established; however, a change of 0.5 log copies/mL may be significant. This assay should not be used for blood donor screening, associated re-entry protocols, or for screening Human Cell, Tissues and Cellular Tissue-Based Products (HCT/P). Performed By: [facility] [address] [place] [id number] Software Design Analyst: Ian Arellano MD, PhD CLIA Number: [id number] CBC w\ Auto Diff [id number] Reviewed date:06/20/2023 01:14:34 PM Interpretation: Performing Lab: Notes/Report: Diagnosis Description: Essential (primary) hypertension WBC 9.6 4.5-11.0 X10'3 RBC 5.07 4.00-5.20 X10'6 Hgb 15.7 12.0-16.0 G/DL Hct 48.9 36.0-46.0 % MCV 96.4 80.0-100.0 FL MCH 31.0 27.0-31.0 PG MCHC 32.1 31.0-37.0 G/DL Platelet 256 150-400 X10'3 RDW-SD 50.4 35.0-49.0 FL RDW-CV 14.3 12.2-15.6 % MPV 10.1 9.2-12.0 FL Neutro Auto% 73.6 42.0-75.0 % Lymph Auto% 15.9 20.0-51.0 % [place] Auto% 6.8 1.7-9.3 % Eos Auto% 2.6 .0-6.0 % Baso Auto% 0.5 0.0-1.0 % Imm Gran% .6 .0-.4 % Neutro Abs 7.05 .80-7.70 Absolute Neutrophil Count 7050 Lymph Abs 1.52 .10-4.10 [place] Abs .65 .20-1.00 Eos Abs .25 .00-.40 Baso Abs .05 .00-.10 Imm Gran Abs .06 .00-.10 NRBC# .00 .00-.20 X10'3 NRBC% .00 .00-.20 /100 int act WBC's Comprehensive Metabolic Pane l [id number] Reviewed date:06/20/2023 01:15:08 PM Interpretation: Performing Lab: Notes/Report: Diagnosis Description: Essential (primary) hypertension Glucose Serum 184 71-110 MG/DL Testing perfor med at [facility], [address] [place] [address] [place] [address]. CLIA ID#: [id number] BUN 25 7-21 MG/DL Creat 1.03 .51-1.17 MG/DL Q-rnkwmv-a-benzoquinone imine (NAPQI) is a metabolite of acetaminophen, NAPQI concentrations of apparoximately 10 mg/L correlation to toxic levels of acetaminophen demonstrates a greater than or equil to 10% change in results. NAPQI concentrations greater than this may lead to falsely depressed results for patient samples. Use of this assay is not recommended for patients undergoing treatment with phenindione, due to the potential for falsely depressed results. GFR 60.4 Calculation per formed from GFR calculator provided by the National Kidney Foundation. Glomerular Filtration rate(GRF) is the best overall index of kidney function. Normal GFR varies according to age,sex, body size, and declines with age. The National Kidney Foundation recommends using the CKD-EPI Creatinine Equation(2009) to estimate GFR. BUN/Creat Ratio 24.3 12.0-20.0 % Total Protein 7.7 5.8-8.0 G/DL Albumin 4.9 3.2-4.8 G/DL Globulin 2.8 2.3-3.5 G/DL Alb/Glob 1.8 0.8-2.2 Calcium 10.2 8.7-10.4 MG/DL Sodium 140 136-145 MMOL/L Potassium 4.6 3.5-5.1 MMOL/L Chloride 100 98-107 MMOL/L CO2 28.8 20.0-31.0 MMOL/L Anion Gap 16 5-15 Alk Phos 129 46-116 Bili Total .5 .3-1.2 MG/DL Use of this ass ay is not recommended for patients undergoing treatment with eltrombopag due to the potential for falsely elevated results. AST/SGOT 20 15-37 UNIT/L ALT/SGPT 23 12-78 UNIT/L Osmo Serum,Calculated 299 280-300 MOSM/KG Hemoglobin A1c 40323 Reviewed date:06/20/2023 01:13:44 PM Interpretation: Performing Lab: Notes/Report: Diagnosis Description: Type 2 diabetes mellitus without complications Hgb A1c 8.8 3.8-6.4 % Interpretation Of Hgb A1c: 4.5-6.2 % nondiabetics. >7.0 % diabetics. EAG 206 Estimated [place] ge Glucose(EAG). Lipid Panel Reflex DLDL 8006 1, 72909 Reviewed date:06/20/2023 01:14:05 PM Interpretation: Performing Lab: Notes/Report: Diagnosis Description: Mixed hyperlipidemia Trig 583 Trig >400, dLDL testing reflexed. Classification Guidelines:Triglycerides Adults: >20yrs Desirable <150 Borderline High 150-199 High 200-499 Very high >=500 Children: Male 0-4 yr 22-99 5-9 yr 30-101 10-14 yr 32-125 15-19 yr 37-148 Children: Female 0-4 yr 34-112 5-9 yr 32-105 10-14 yr 37-131 15-19 yr 39-132 Chol 212 <=200 MG/DL HDL 37 39-96 MG/DL Reference Ranges:HDL Male: 5-9y 38-75 10-14y 37-74 15-19y 30-63 >=20y 40-59 Female: 5-9y 36-73 10-14y 37-70 15-19y 35-74 >=20y 40-59 CH/HDL 5.7 0.0-4.9 RATIO LDL N/A 0-130 MG/DL LDL result is i naccurate , if Trig is >400 mg/dl. See DLDL result. REASON FOR REFERRAL Reason history hiv long t erm med Diagnosis 1 History of HIV infec tion (B20) Referral Organization [facility] [place] Referring Provider First Name Alexa Referring Provider Last Name Ayers Referring Provider Speciality Nurse Prac isaias Referred Provider CLAY ANDUJAR Referred Provider Specialty Internal Med icine General Notes Sara Eric 02/2023 10:05:48 AM >Per Shirin at Dr. Andujar's office. Patient was seen on 10/07 at 3:20. She will send records. Referral Priority Routine Referral Appointment Date 10/07/2022 Reason HIV, fdc med Referral Organization [facility] Referring Provider First Name Alexa Referring Provider Last Name Ayers Referring Provider Speciality Nurse Christopher esparza Referred Organization [facility] Referred Provider Clay Andujar Referred Address [address] [facility],[place],[address],[place] Referred Provider Specialty Internal Med icine General Notes Alicja Tanner 08:12:09 AM >no answer, Alicja Tanner 09/22/2022 10:38:53 AM >no answer, Alicja Tanner 09/23/2022 09:10:32 AM >no answer, Alicja Tanner 09/24/2022 01:48:57 PM >no answer, Katheryn Meraz 09/30/2022 07:48:43 PM >letter mailed Referral Priority Routine Reason diabetes eye screen conjunctivitis Diagnosis 1 Bacterial conjunctiv itis (H10.9) Diagnosis 2 Type 2 diabetes domenico itus without complication, without long-term current use of insulin (E11.9) Referral Organization [facility] Referring Provider First Name Alexa Referring Provider Last Name Ayers Referring Provider Jaime esparza Referred Provider Wilfredo Brice Referred Provider Specialty Ophthalmolog y General Notes Sara Eric 12/2022 05:13:17 PM >See referral notes Referral Priority Routine Referral Appointment Date 03/31/2023 Reason hiv infection oil heaterman treatment Diagnosis 1 History of HIV infec tion (B20) Referral Organization [facility] Referring Provider First Name Alexa Referring Provider Last Name Ayers Referring Provider Jaime esparza Referred Provider Jose R Jang Referred Provider Specialty Infectious D isease General Notes Sara Eric 07/07 12:53:52 PM >See referral notes Referral Priority Routine Reason chronic pain lumba r pain Diagnosis 1 Chronic pain syndrom e (G89.4) Diagnosis 2 Neuropathic pain (M7 9.2) Diagnosis 3 Sciatica, left side (M54.32) Diagnosis 4 Lumbar pain (M54.50) Referral Organization [facility] Referring Provider First Name Alexa Referring Provider Last Name Ayers Referring Provider Jaime esparza Referred Provider [facility] [place] Referred Provider Specialty Pain Medicin e Referral Priority Routine Reason Chronic pain managem ent Diagnosis 1 Chronic pain syndrom e (G89.4) Diagnosis 2 Sciatica, left side (M54.32) Referral Organization [facility] Referring Provider First Name Jose R Referring Provider Last Name Jonathon Referring Provider Speciality Infectious Disease Referred Provider Specialty Pain Medicin e General Notes Sara rEic 08/05 11:21:02 AM >See referral notes Referral Priority Routine Reason chronic pain Diagnosis 1 Other chronic pain ( G89.29) Diagnosis 2 Lumbar pain (M54.50) Diagnosis 3 Neuropathic pain (M7 9.2) Diagnosis 4 Osteoarthritis of oneyda mbar spine, unspecified spinal osteoarthritis complication status (M47.816 ) Referral Organization [facility] Referring Provider First Name Alexa Referring Provider Last Name Ayers Referring Provider Speciality Nurse Christopher esparza [facility]erred Provider Specialty Pain Medicin e General Notes Sara Eric 03/2023 03:05:52 PM >Spoke with Donaldo at [facility]. They had spoken with patient about possible injections but patient isn't interested in them. Patient was requesting oral pain medications and they do not provide them there., Sara Eric 08/10/2023 03:06:14 PM >Will cancel referral per [facility] [employer]EARCH ENVIRONMENTAL ENGINEER request. Referral Priority Routine MEDICATIONS Medication SIG (Take, Route, Frequency, Duration) Notes Start Date End Date Status Lisinopril 10 mg TAKE ONE TABLET BY MOUTH EVERY DAY for 30 Active Atorvastatin Calcium 80 mg TAKE ONE TABLET BY MOUTH EVERY DAY for 30 Active Metoprolol Succinate ER 100 mg TAKE ONE TABLET BY MOUTH EVERY EVENING for 30 Active Methocarbamol 750 MG Oral for 5 Days Not-Taking Gabapentin 300 mg TAKE TWO CAPSULES BY MOUTH THREE TIMES DAILY for 30 Active Nitroglycerin 0.4 mg DISSOLVE 1 TABLET U NDER THE TONGUE EVERY 5 MINUTES NEEDED FOR CHEST PAIN. DO NOT EXCEED A TOTAL OF 3 DOSES IN 15 MINUTES for 30 Active buPROPion HCl ER (XL) 300 mg TAKE ONE TABLET BY MOUTH IN THE MORNING (DOSE CHANGE) for 30 Active Isosorbide Mononitrate ER 60 mg TAKE ONE TABLET BY MOUTH EVERY MORNING for 30 Active Clopidogrel Bisulfate 75 MG Oral for 90 Days Active ARIPiprazole 15 mg TAKE ONE TABLET BY MOUTH DAILY for 30 Active Furosemide 20 mg TAKE 1 TO 2 TABLETS BY MOUTH EVERY DAY for 30 Active Pepcid 40 MG 1 tablet at bedtime Orally Once a day for 30 days Active Trelegy Ellipta 100-62.5-25 MCG/ACT 1 puff Inhalation Once a day for 30 days Active Janumet 50-500 MG 1 tablet with meals Orally Twice a day for 30 days Active Celecoxib 100 mg TAKE ONE CAPSULE BY MOUTH ONCE a DAY for 30 Active Lancets - lancets en vitro edwin ly and prn for 30 days Active Lactulose 10 GM/15ML TAKE 15 ML BY MOUTH ONCE DAILY for 30 Active Blood Glucose Test - blood sugar test as directed In Vitro once a day and prn for 30 days Active Ondansetron HCl 4 MG 1 tablet Orally q 4 hours prn nausea for 30 day(s) Active Albuterol Sulfate HFA 108 (90 Base) MCG/ACT inhale TWO puffs BY MOUTH FOUR TIMES DAILY NEEDED for 30 Active Sertraline HCl 100 mg TAKE ONE TABLET BY MOUTH EVERY DAY for 90 Active Oxygen - Home Use 2 L NC PRN 08/25/2022 Active traMADol HCl 50 MG to 2 tabs Orally ; n ot to exceed 6 a day for 30 days 09/15/2023 Active Biktarvy 50-200-25 MG 1 tablet Orally On ce a day for 90 days 08/11/2023 Active Cetirizine HCl 10 mg TAKE ONE TABLET BY MOUTH DAILY NEEDED FOR allergies for 30 Active Blood Glucose Monitor System w/Device blood sugar device intradermal q day and prn for 30 days Active Eliquis 5 mg TAKE ONE TABLET BY MOUTH TWICE DAILY for 30 Active Fluticasone Propionate 50 MCG/ACT instill ONE SPRAY IN EACH NOSTRIL ONCE a DAY for 30 Active Aspirin 81 81 MG 1 tablet Orally Once a day Active Ferrous Sulfate 325 (65 Fe) MG 1 tablet Orally Three times a Week Active IMMUNIZATIONS Vaccine Route Administration Date Status Comme nts Flucelvax IM Intramuscular 08/12/2022 Administered [facility] 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 Patient tolerated well, advised to wait 20 min at clinic Ketorolac Tromethamine 08/12/2022 60 [place] 227[address]-588-92 pt tolerated well/instructed to wait 20 min Ketorolac Tromethamine 08/22/2022 60 mg NDC: 58116-662-17 Patient tolerated well, advised to wait 20 min at clinic Ketorolac Tromethamine 09/11/2022 60 mg NDC: 25921-614-08 Patient tolerated well, advised to wait 20 min at clinic Ketorolac Tromethamine 09/19/2022 [address] [place] [address]57[address]-778-28 pt tolerated well/instructed to wait 20 min Ketorolac Tromethamine 10/03/2022 [place] [address]-60 pt tolerated well/instructed to wait 20 min Ketorolac Tromethamine 10/08/2022 30 mg Ketorolac Tromethamine 10/27/2022 [place] [address]-62 pt tolerated well/instructed to wait 20 min Ketorolac Tromethamine 11/21/2022 [place] [address]-26 pt tolerated well/instructed to wait 20 min Ketorolac Tromethamine 12/12/2022 60 mg NDC: [address]-60 Patient tolerated well, advised to wait 20 min at clinic Ketorolac Tromethamine 01/19/2023 [place] [address]-72 pt tolerated well/instructed to wait 20 min Ketorolac Tromethamine 06/19/2023 [place] [address]-05 pt tolerated well/instructed to wait 20 min Ketorolac Tromethamine 09/15/2023 [place] [address]-68 pt tolerated well/instructed to wait 20 min Rocephin 05/09/2022 1 g ndc 67830-442- 25 pt tolerated well/instructed to wait 20 min Rocephin 09/19/2022 1 g ndc 8493-9229- 11 pt tolerated well/instructed to wait 20 min MEDICAL (GENERAL) HISTORY Medical History History ICD Code hypertension myocardial infarction hyperlipidemia edema chronic pain HIV schizophrenia Pneumonia Heart Disease Arthritis anemia migraine headaches Back Trouble High Blood Pressure AIDS/HIV cancer Surgical History Surgery Date(Month/Year) lymph node biopsy section stent placement Hospitalization History Reason Date(Month/Year) chest pain 10/24/2022 Chest pain 07/13/2022 EKG 03/2022 see surgical hx
[2023-09-21 23:22] LABS: Reflex Lactate Order REFLEX LACTIC ORDERD
[2023-09-21] MEDS: hyDRALAzine 20 mg/mL INJ 1 mL 5 MG IVP (23:40)
[2023-09-21 23:45] LABS: Amphetamines Screen Urine Negative (Negative); Barbiturates Screen Urine Negative (Negative); Benzodiazepines Screen Urine Negative (Negative); Cocaine Screen Urine Negative (Negative); Opiate Screen Urine Negative (Negative); PCP Screen Urine Negative (Negative); THC Screen Urine Positive (Negative)
[2023-09-21] MEDS: nicardipine 20 MG/200 ML PREMIX 50 MG IV (23:45)
--- NOTE | 2023-09-21 23:52 | ECG_ITS ---
[facility] Test Date: 2023-09-21 Pat Name: Katie Andrews Department: Room: ED Gender: Female [employer] Inspector: : 1955 Requested By: Jeffy Dhaliwal Order Number: [id number] Reading MD: Sina Bey M.D. Measurements Intervals [place] Rate: 92 P: 83 CT: 146 QRS: 67 QRSD: 77 T: 77 QT: 345 QTc: 428 Interpretive Statements SINUS RHYTHM WITH FREQUENT SUPRAVENTRICULAR PREMATURE COMPLEXES SEPTAL MYOCARDIAL INFARCTION , PROBABLY OLD [40+ ms Q WAVE IN V1/V2] Compared to ECG 09/21/2023 19:28:03 No significant changes Electronically Signed On 09-22-2023 14:41:37 IT AUDIT MANAGER by Sina Bey M.D. [email or web address]
[2023-09-21 23:57] LABS: Thyroid Stimulating Hormone 1.64 uIU/mL (0.27-4.20)
[2023-09-22] VITALS (120 sets, daily range): BP systolic 104–206; BP diastolic 73–132; PULSE 0–163; RESP 11–36; TEMP 36.7–37.7; O2SAT 91–97; BMI 39.9
[2023-09-22 01:51] LABS: Troponin 5 6HR 65.54 ng/L (0-10)
[2023-09-22] MEDS: dilTIAZem 5 mg/mL SDV 5 mL 2 MG IVP ×2 (01:51→02:02)
[2023-09-22 01:59] LABS: Troponin 5 6HR Delta 36.54 ng/L (0-12)
[2023-09-22] MEDS: dilTIAZem 100 MG in sodium chloride 0.9% (add-van) 100 ML IV (02:55)
[2023-09-22] MEDS: amiodarone 50 mg/mL SDV 3 mL 150 MG IVP (04:35)
[2023-09-22] MEDS: metoprolol tartrate 1 mg/1 mL SDV 5 mL 5 MG IVP (05:47)
--- OUTSIDE RECORDS SUMMARY | 2023-09-22 05:47 | XMS_ITS | Patient Health Record ---
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 current use of insulin (ICD-10 - E11.9) 06/19/2023 Type 2 diabetes mellitus without complication, without long-term current use of insulin (ICD-10 - E11.9) ha1c 07/06/2023 group home (current) use of oral hypoglycemic drugs (ICD-10 - Z79.84) 08/06/2023 GERD without esophagitis (ICD-10 - K21.9) pepcid 09/15/2023 Flu vaccine need (ICD-10 - Z23) flu vaccine 08/06/2023 salvage determiner (current) use of oral hypoglycemic drugs (ICD-10 - Z79.84) 06/19/2023 History of HIV infection (ICD-10 - B20) refer to infection control 07/06/2023 History of HIV infection (ICD-10 - B20) infectuous disease millan 03/27/2023 Nicotine dependence, cigarettes, uncomplicated (ICD-10 - F17.210) 10/27/2022 Nicotine dependence, cigarettes, uncomplicated (ICD-10 - F17.210) 10/08/2022 Coronary artery disease involving [place] heart without angina pectoris, unspecified vessel or lesion type (ICD-10 - I25.10) 10/07/2022 Hammer toe of second toe of left foot (ICD-10 - M20.42) 10/08/2022 Stented coronary artery (ICD-10 - Z95.5) 03/27/2023 group home (current) use of oral hypoglycemic drugs (ICD-10 - Z79.84) 07/06/2023 Sciatica, left side (ICD-10 - M54.32) 06/19/2023 Lumbar pain (ICD-10 - M54.50) 08/06/2023 Adverse effect of drug, initial encounter (ICD-10 - T50.905A) 06/19/2023 salvage determiner (current) use of oral hypoglycemic drugs (ICD-10 [...] Name Order Date CBC w\ Auto Diff 85999 08/11/2023 Comprehensive Metabolic Panel 19950 110 04/2023 Lymphocyte Subset CD4 42272 08/11/2023 CRP 08150 08/11/2023 CT Abdomen w/ + w/o Contrast-72813 06/19 HIV-1 Quantitative NAAT--93693 3 Future Test Test Name Order Date CBC w\ Auto Diff 00785 02/09/2024 Comprehensive Metabolic Panel 20491 04/2024 Lymphocyte Subset CD4 93632 02/09/2024 CRP 80591 02/09/2024 HIV-1 Quantitative NAAT--40446 4 Next Appt Details Provider Name:Alexa Ayers, 10/29/2023 01:00:00 PM, [address] [place] [address], [phone], Provider Name:Jose R moulton, 02/09/2024 01:30:00 PM, [address] [place] [address], [phone], Insurance Providers Payer Name Payer Address Payer Phone Subscriber Number Group Number Insured Name Patient Relationship to Insured Coverage Start Date Coverage End Date [facility] Medicare Dual Complete PPO [address] [address] [place] [address] [id number] Katie Hernandez Self - patient is the insured [place] Medicare [address] [place] [address] [id number] Katie Hernandez Self - patient is the insured [place] Medicaid [address] [place] [address] [id number] Jb uribe, Katie Self - patient is the insured MEDICATIONS ADMINISTERED Medication Instructions Date of Administration Dosage Notes DEPO-Medrol 05/09/2022 40 mg ndc 99034-986 3-1 pt tolerated well/instructed to wait 20 min DEPO-Medrol 05/23/2022 40 mg ndc 08092-110 3-1 pt tolerated well/instructed to wait 20 min DEPO-Medrol 06/10/2022 40 mg NDC: [address]-58 Patient tolerated well, advised to wait 20 min at clinic DEPO-Medrol 07/01/2022 40 mg ndc 84351-197 2-1 pt tolerated well/instructed pt to wait 20 min DEPO-Medrol 07/15/2022 40 mg NDC: [address]-63 Patient tolerated well, advised to wait 20 min at clinic DEPO-Medrol 07/24/2022 40 mg ndc 79914-822 2-1 pt tolerated well/instructed to wait 20 min. DEPO-Medrol 08/22/2022 40 mg NDC: 4748-5903-58 Patient tolerated well, advised to wait 20 min at clinic DEPO-Medrol 09/19/2022 40 mg ndc 4728-4346 - pt tolerated well/instructed to wait 20 min DEPO-Medrol 10/03/2022 40 mg ndc 88034-407 3- pt tolerated well/instructed to wait 20 min DEPO-Medrol 12/12/2022 40 mg NDC: [address]-33 Patient tolerated well, advised to wait 20 min at clinic dexAMETHasone 05/09/2022 4 mg ndc 68703-3 39-30 pt tolerated well/instructed to wait 20 min dexAMETHasone 05/23/2022 4 mg ndc 82299-6 39-30 pt tolerated well/instructed to wait 20 min dexAMETHasone 06/10/2022 4 mg NDC: 18843-788-60 Patient tolerated well, advised to wait 20 min at clinic dexAMETHasone 07/01/2022 4 mg ndc 36801-4 39-30 pt tolerated well/instructed to wait 20 min dexAMETHasone 07/15/2022 4 mg NDC: 98099-534-42 Patient tolerated well, advised to wait 20 min at clinic dexAMETHasone 07/24/2022 4 mg ndc 17970-3 39-30 pt tolerated well/instructed to wait 20 min dexAMETHasone 08/22/2022 4 mg NDC: 24672-353-91 Patient tolerated well, advised to wait 20 min at clinic dexAMETHasone 09/19/2022 4 mg ndc 63697-3 39-30 pt tolerated well/instructed to wait 20 min dexAMETHasone 10/03/2022 4 mg ndc 45226-8 239-30 pt tolerated well/instructed to wait 20 min dexAMETHasone 12/12/2022 4 mg NDC: [address]-17 Patient tolerated well, advised to wait 20 min at clinic Ketorolac Tromethamine 03/12/2022 60 mg Ketorolac Tromethamine 04/30/2022 60 mg nd [id number] Ketorolac Tromethamine 05/23/2022 60 [place] 514[address]-229-01 pt tolerated well/instructed to wait 20 min Ketorolac Tromethamine 06/03/2022 60 mg nd [id number] Ketorolac Tromethamine 06/10/2022 60 mg NDC: 69176-409-52 Patient tolerated well, advised to wait 20 min at clinic Ketorolac Tromethamine 07/01/2022 [place] 432[address]-944-89 pt tolerated well/instructed to wait 20 min Ketorolac Tromethamine 07/15/2022 60 mg NDC: 89406-983-22 Patient tolerated well, advised to wait 20 min at clinic Ketorolac Tromethamine 07/24/2022 [place] 56[address]-830-58 pt tolerated well/instructed to wait 20 min Ketorolac Tromethamine 07/31/2022 60 mg NDC: 67907-675-28 Patient tolerated well, advised to wait 20 min at clinic Ketorolac Tromethamine 08/12/2022 [address] [place] [address]-950-87 pt tolerated well/instructed to wait 20 min Ketorolac Tromethamine 08/22/2022 60 mg NDC: 95603-686-18 Patient tolerated well, advised to wait 20 min at clinic Ketorolac Tromethamine 09/11/2022 60 mg NDC: 54982-559-93 Patient tolerated well, advised to wait 20 min at clinic Ketorolac Tromethamine 09/19/2022 [address] [place] [address]-943-23 pt tolerated well/instructed to wait 20 min Ketorolac Tromethamine 10/03/2022 [address] [place] [address]-29 pt tolerated well/instructed to wait 20 min Ketorolac Tromethamine 10/08/2022 30 mg Ketorolac Tromethamine 10/27/2022 [place] [address]-68 pt tolerated well/instructed to wait 20 min Ketorolac Tromethamine 11/21/2022 [place] [address]-64 pt tolerated well/instructed to wait 20 min Ketorolac Tromethamine 12/12/2022 60 mg NDC: [address]-85 Patient tolerated well, advised to wait 20 min at clinic Ketorolac Tromethamine 01/19/2023 [address] [place] [address]-76 pt tolerated well/instructed to wait 20 min Ketorolac Tromethamine 06/19/2023 [place] [address]-68 pt tolerated well/instructed to wait 20 min Ketorolac Tromethamine 09/15/2023 [address] [place] [address]-84 pt tolerated well/instructed to wait 20 min Rocephin 05/09/2022 [address] [place] [address]-076- 25 pt tolerated well/instructed to wait 20 min Rocephin 09/19/2022 1 g [facility] 7125-3471- 11 pt tolerated well/instructed to wait 20 min MEDICAL (GENERAL) HISTORY Medical History History ICD Code hypertension myocardial infarction hyperlipidemia edema chronic pain HIV schizophrenia Pneumonia Heart Disease Arthritis anemia migraine headaches Back Trouble High Blood Pressure AIDS/HIV cancer Surgical History Surgery Date(Month/Year) stent placement section lymph node biopsy Hospitalization History Reason Date(Month/Year) chest pain 10/24/2022 Chest pain 07/13/2022 EKG 03/2022 see surgical hx
[2023-09-22 06:51] LABS: Magnesium 1.7 mg/dL (1.7-2.3)
[2023-09-22 08:09] LABS: Estmated Average Glucose 214; Hemoglobin A1C 9.1 % (4.0-6.0)
[2023-09-22 08:30] LABS: Vitamin B12 711 pg/mL (232-1245)
--- NOTE | 2023-09-22 08:41 | PC.PHAR ---
pt states she takes care of her own medications-pt states she is taking janument 50-500mg one tab qam rx on hold at [facility] for 1 tab po bid -pt states she is also taking metformin 500mg qam-notes are made in the pharmacy comments
--- NOTE | 2023-09-22 08:55 | PC.NURSE ---
Patient does not want purse with documented garcía to be placed into the [facility] for safekeeping. Patient states she does not have anyone who can come get her belongings. Belongings will be at bedside per patient preference.
[2023-09-22] MEDS: lisinopril 20 mg Tablet PO ×2 (09:03→09:09)
[2023-09-22] MEDS: apixaban 5 mg Tablet PO ×2 (09:03→17:12)
[2023-09-22] MEDS: metoprolol tartrate 50 mg Tablet PO (09:03)
[2023-09-22] MEDS: FUROsemide 20 mg Tablet PO (09:03)
[2023-09-22] MEDS: sennosides-docusate Tablet 1 TAB PO (09:03)
[2023-09-22] MEDS: clopidogrel 75 mg Tablet PO (09:03)
[2023-09-22] MEDS: azithromycin 250 mg Tablet 500 MG PO (09:03)
[2023-09-22] MEDS: cefTRIAXone 1,000 MG in sodium chloride 0.9% (plus) 50 ML 100 MG IV (09:04)
[2023-09-22] MEDS: hyDRALAzine 20 mg/mL INJ 1 mL 10 MG IVP (09:04)
[2023-09-22] MEDS: buPROPion XL (24 HR) 300 mg Tablet PO (09:04)
[2023-09-22 09:05] LABS: Glucose Point of Care 275 mg/dL (70-110)
[2023-09-22] MEDS: insulin lispro 100 unit/1 mL SUBCUT ×3 (09:13→17:40)
[2023-09-22] MEDS: amiodarone 200 mg Tablet 400 MG PO ×2 (10:48→17:12)
[2023-09-22 11:05] LABS: Glucose Point of Care 240 mg/dL (70-110)
[2023-09-22] MEDS: HYDROcodone-acetaminophen 5-325 mg Tablet 1 TAB PO ×2 (11:39→20:55)
[2023-09-22] MEDS: FUROsemide 10 mg/mL SDV 4mL 40 MG IVP (14:47)
[2023-09-22] MEDS: ondansetron 2 mg/ML SDV 2 mL 4 MG IVP ×2 (14:47→21:09)
--- NOTE | 2023-09-22 16:38 | P.PN_ITS ---
Subjective 2 Subjective: Patient was examined multiple times throughout the morning, she continues to be in A-fib with RVR, heart rates in the 130s, amiodarone drip, I have started her on metoprolol, dose was increased to 75 twice daily Vitals/I&O/Wt Last Vital Signs Temp 98.6 F 09/22/23 16:00 Pulse 132 H 09/22/23 16:15 Resp 21 H 09/22/23 16:15 BP 160/98 09/22/23 16:15 Pulse Ox 95 09/22/23 16:15 O2 Del Method Nasal Cannula 09/22/23 15:20 O2 Flow Rate 4 09/22/23 08:15 09/22/23 09/22/23 09/22/23 06:59 14:59 22:59 Intake Total 232.875 / 282.875 368.869 / 368.869 Output Total 350 / 350 Balance 232.875 / 282.875 18.869 / 18.869 Weight last 48 hrs Weight 108.862 kg Physical Exam 2 Const: COMMON NORMALS: no acute distress and patient oriented x3 Resp: COMMON NORMALS: normal respiratory effort, No retractions, No use of accessory muscles and clear to auscultation bilaterally AUSCULTATION: clear to auscultation bilaterally Cardio: COMMON NORMALS: regular rate, regular rhythm, S1 normal heart sound present and S2 normal heart sound present RATE: regular rate RHYTHM: r egular rhythm HEART SOUNDS: S1 normal heart sound present and S2 normal heart sound present GI: COMMON NORMALS: Normal to inspection, nondistended, normoactive bowel sounds present and non-tender Extremity: COMMON NORMALS: no pedal edema Neuro: COMMON NORMALS: patient oriented x3 Psych: COMMON NORMALS: mental status grossly normal Data 09/21/23 18:18 09/21/23 18:18 Micro: Microbiology 09/21/23 23:50 Gram Stain - Final Sputum - Expectorated Sputum 09/21/23 18:18 Blood Culture - Preliminary Blood SPECIMEN COLLECTED 09/21/23 18:18 Blood Culture - Preliminary Blood SPECIMEN COLLECTED A&P Assessment and plan (1) Accelerated hypertension: (2) Acute diastolic heart failure: (3) Pulmonary HTN: (4) Community acquired pneumonia: (5) Anticoagulation adequate with anticoagulant therapy: (6) COPD exacerbation: (7) Hypoxemia: (8) Pneumonia: Qualifiers: Laterality: right Lung location: lower lobe of lung Pneumonia type: d ue to unspecified organism Qualified Code(s): J18.9 - Pneumonia, unspecified organism (9) Obstructive sleep apnea: (10) Peripheral edema: Plan A-fib with RVR, ? Amiodarone 400 twice daily, ? Amiodarone drip, ? meToprol 75 twice daily Acute COPD exacerbation Active smoker Community-acquired pneumonia counitnue ceftriaxone and azithromycin DuoNeb treatment Will require sputum culture CT/CT angio chest PE protcl [id number] IMPRESSION: 1. Negative for pulmonary embolus. 2. Small bilateral pleural effusions. 3. Coronary artery atherosclerotic calcifications. 4. Hepatic steatosis. 5. Left kidney benign parenchymal calcification. 6. Several subcentimeter short axis nonspecific mediastinal lymph nodes. 7. Patchy bilateral largely dependent atelectasis versus infiltrate. I will put patient on BiPAP to decrease the work of breathing Significant leukocytosis, tachypnea, tachycardia She is afebrile Hypertensive urgency, metoprolol to 75 twice daily Signs of endorgan damage with leakage of troponin No active chest pain Her chest pain is reproducible Acute diastolic CHF exacerbation with underlying pulmonary hypertension Patient is still smoking She may need referral to pulmonology clinic She is on trilogy at home BiPAP overnight along Lasix IV Cardiac diet A-fib without RVR continue Eliquis I will discontinue aspirin, would only keep her on Plavix along with Eliquis She should not be taking celecoxib along aspirin or Plavix which can increase the chance of gastric ulcer and thromboembolic phenomenon Soft intubation X-ray, lung infiltrate concerning for pneumonia Attestations 2 Medical Necessity Statement*: Patient requires hospitalization for A-fib with RVR, COPD exacerbation, pneumonia Diagnoses Accelerated hypertension I10 Acute diastolic heart failure I50.31 Pulmonary HTN I27.20 Community acquired pneumonia J18.9 Anticoagulation adequate with anticoagulant therapy Z79.01 COPD exacerbation J44.1 Hypoxemia R09.02 Pneumonia J18.9 Laterality: right Lung location: lower lobe of lung Pneumonia type: due to unspecified organism Obstructive sleep apnea G47.33 Peripheral edema R60.9
[2023-09-22 16:56] LABS: Glucose Point of Care 236 mg/dL (70-110)
[2023-09-22] MEDS: metoprolol tartrate 50 mg Tablet 75 MG PO ×2 (17:12→20:55)
[2023-09-22] MEDS: acetaminophen 325 mg Tablet 650 MG PO (17:39)
--- NOTE | 2023-09-22 18:26 | PC.NURSE ---
Provider notified of elevated blood pressure and heart rate throughout shift. Orders received to monitor patient. See documented vitals. Patient is currently resting in bed with complaints of headache,dr. Sahu notified and order for tylenol 650mg given. See MAR for medications administered. Room darkened, door closed for noise control, wet washcloth provided as patient stated she was hot and fan was unavailable. Temperatures within normal range. Patient intermittently reports nausea without vomiting during this shift. Patient consuming 25% or less of meals. Overall, patient had an uneventful shift.
[2023-09-22] MEDS: atorvastatin 40 mg Tablet PO (20:55)
[2023-09-22 21:15] LABS: Glucose Point of Care 148 mg/dL (70-110)
[2023-09-23] VITALS (23 sets, daily range): BP systolic 103–164; BP diastolic 74–107; PULSE 109–127; RESP 10–25; TEMP 36.2–36.8; O2SAT 91–99
[2023-09-23] MEDS: buPROPion XL (24 HR) 300 mg Tablet PO (05:06)
[2023-09-23] MEDS: HYDROcodone-acetaminophen 5-325 mg Tablet 1 TAB PO ×2 (05:06→16:58)
[2023-09-23 06:12] LABS: Basophils # 0.1 10^3/uL (0.0-0.1); Basophils % 0.4 %; Eosinophils # 0.1 10^3/uL (0.0-0.8); Eosinophils % 0.4 %; Lymphocytes # 1.9 10^3/uL (0.8-4.8); Lymphocytes % 13.4 %; Mean Corpuscular HGB Conc 31.3 g/dL (30-55); Mean Corpuscular Hemoglobin 30.2 pg (27-33); Mean Corpuscular Volume 96.4 fl (85-98); Mean Platelet Volume 9.9 fL (7.4-10.4); Monocytes # 1.1 10^3/uL (0.2-0.9); Monocytes % 7.7 %; Neutrophils # 10.65 10^3/uL (1.8-7.7); Neutrophils % 76.9 %; Nucleated Red Blood Cells % 0 %; Platelet Count 271 10^3/cmm (157-399); Red Blood Count 4.67 10^6/uL (3.85-5.65); Red Cell Distribution Width 14.2 % (12.1-15.1); White Blood Count 13.85 10^3/uL (3.29-11.43)
[2023-09-23 06:34] LABS: Blood Urea Nitrogen 19 mg/dL (8-23); C Reactive Protein 97.2 mg/L (0.0-4.9); Calcium 9.5 mg/dL (8.5-10.5); Carbon Dioxide 27 mmol/L (22-29); Chloride 101 mmol/L (98-107); Glomerular Filtration Rate 55.6 mL/min (90-130); Glucose 186 mg/dL (65-115); Magnesium 2.3 mg/dL (1.7-2.3); Osmolality Calculated 301 mOsm/kg (285-295); Phosphorus 3.1 mg/dL (2.5-4.5); Sodium 142 mmol/L (136-145)
[2023-09-23 06:37] LABS: Anion Gap 17.8 (5-19); Potassium 3.8 mmol/L (3.5-5.1)
[2023-09-23 07:57] LABS: Glucose Point of Care 182 mg/dL (70-110)
[2023-09-23] MEDS: azithromycin 250 mg Tablet 500 MG PO (08:27)
[2023-09-23] MEDS: metoprolol tartrate 50 mg Tablet 75 MG PO ×2 (08:27→21:03)
[2023-09-23] MEDS: insulin lispro 100 unit/1 mL SUBCUT ×2 (08:27→11:54)
[2023-09-23] MEDS: lisinopril 20 mg Tablet PO (08:27)
[2023-09-23] MEDS: cefTRIAXone 1,000 MG in sodium chloride 0.9% (plus) 50 ML 100 MG IV (08:27)
[2023-09-23] MEDS: amiodarone 200 mg Tablet 400 MG PO ×2 (08:27→16:59)
[2023-09-23] MEDS: apixaban 5 mg Tablet PO ×2 (08:28→16:59)
[2023-09-23] MEDS: clopidogrel 75 mg Tablet PO (08:28)
[2023-09-23 08:34] LABS: NT Pro B Type Natriuretic Pept 9611 pg/mL (0-125)
[2023-09-23] MEDS: dilTIAZem 30 mg Tablet PO ×2 (09:52→15:37)
[2023-09-23 11:48] LABS: Glucose Point of Care 233 mg/dL (70-110)
[2023-09-23] MEDS: metOLazone 5 MG Tablet PO (11:53)
[2023-09-23] MEDS: FUROsemide 10 mg/mL SDV 4mL 40 MG IVP ×2 (11:53→19:04)
--- NOTE | 2023-09-23 13:32 | PC.OT ---
PT REFUSING EVALUATION TODAY D/T FEELING TIRED. PT REFUSED MODIFIED EVAL ON EOB. WILL ATTEMPT AGAIN TOMORROW 09/24.
[2023-09-23 16:18] LABS: Glucose Point of Care 139 mg/dL (70-110)
--- NOTE | 2023-09-23 17:33 | P.PN_ITS ---
Subjective 2 Subjective: Patient was seen this morning, she does report shortness of breath, generalized weakness, no fevers, no chills, does have a cough, she remains in A-fib, with heart rates going up into the 120s RVR, we discussed adding on Cardizem to get the heart rate under control, continue to monitor the ICU, she is agreeable Vitals/I&O/Wt Last Vital Signs Temp 97.2 F L 09/23/23 04:00 Pulse 119 H 09/23/23 14:00 Resp 13 09/23/23 14:00 BP 117/87 09/23/23 14:00 Pulse Ox 99 09/23/23 14:00 O2 Del Method Nasal Cannula 09/23/23 09:32 O2 Flow Rate 3.5 09/23/23 09:32 09/23/23 09/23/23 09/23/23 06:59 14:59 22:59 Intake Total 680 / 1879.164 250 / 250 Output Total 750 / 2000 Balance -70 / -120.836 250 / 250 Weight last 48 hrs Weight 100.244 kg Weight 108.862 kg Physical Exam 2 Const: COMMON NORMALS: no acute distress and patient oriented x3 Resp: COMMON NORMALS: normal respiratory effort, No retractions, No use of accessory muscles and clear to auscultation bilaterally AUSCULTATION: clear to auscultation bilaterally Cardio: COMMON NORMALS: S1 normal heart sound present and S2 normal heart sound present RATE: tachycardic RHYTHM: abnormal rhythm irregularly irregular HEART SOUNDS: S1 normal heart sound present and S2 normal heart sound present GI: COMMON NORMALS: Normal to inspection, nondistended, normoactive bowel sounds present and non-tender Extremity: COMMON NORMALS: no pedal edema Neuro: COMMON NORMALS: patient oriented x3 Psych: COMMON NORMALS: mental status grossly normal Data 09/23/23 05:15 09/23/23 05:15 Micro: Microbiology 09/21/23 23:50 Gram Stain - Final Sputum - Expectorated Sputum Sputum Culture - Preliminary 09/21/23 18:18 Blood Culture - Preliminary Blood NEGATIVE TO DATE 09/21/23 18:18 Blood Culture - Preliminary Blood NEGATIVE TO DATE A&P Assessment and plan (1) Accelerated hypertension: (2) Acute diastolic heart failure: (3) Pulmonary HTN: (4) Community acquired pneumonia: (5) Anticoagulation adequate with anticoagulant therapy: (6) COPD exacerbation: (7) Hypoxemia: (8) Pneumonia: Qualifiers: Laterality: right Lung location: lower lobe of lung Pneumonia type: d ue to unspecified organism Qualified Code(s): J18.9 - Pneumonia, unspecified organism (9) Obstructive sleep apnea: (10) Peripheral edema: Plan A-fib with RVR, ? Amiodarone 400 twice daily, ? Amiodarone drip, ? meToprol 75 twice daily ? Cardizem 30 every 6 hours Acute COPD exacerbation Active smoker Community-acquired pneumonia counitnue ceftriaxone and azithromycin DuoNeb treatment Will require sputum culture CT/CT angio chest PE protcl [id number] IMPRESSION: 1. Negative for pulmonary embolus. 2. Small bilateral pleural effusions. 3. Coronary artery atherosclerotic calcifications. 4. Hepatic steatosis. 5. Left kidney benign parenchymal calcification. 6. Several subcentimeter short axis nonspecific mediastinal lymph nodes. 7. Patchy bilateral largely dependent atelectasis versus infiltrate. - BiPAP to decrease the work of breathing Significant leukocytosis, tachypnea, tachycardia Continue Rocephin ? Continue azithromycin Hypertensive urgency, metoprolol to 75 twice daily Signs of endorgan damage with leakage of troponin No active chest pain Her chest pain is reproducible Acute diastolic CHF exacerbation with underlying pulmonary hypertension Patient is still smoking She may need referral to pulmonology clinic She is on trilogy at home 2 dose of IV Lasix today to help with fluid overload Cardiac diet A-fib without RVR continue Eliquis I will discontinue aspirin, would only keep her on Plavix along with Eliquis She should not be taking celecoxib along aspirin or Plavix which can increase the chance of gastric ulcer and thromboembolic phenomenon Full code ? Eliquis for DVT prophylaxis Attestations 2 Medical Necessity Statement*: patient requires hospitalization for A-fib with RVR now with fluid overload requiring diuresis, pneumonia requiring antibiotics Diagnoses Accelerated hypertension I10 Acute diastolic heart failure I50.31 Pulmonary HTN I27.20 Community acquired pneumonia J18.9 Anticoagulation adequate with anticoagulant therapy Z79.01 COPD exacerbation J44.1 Hypoxemia R09.02 Pneumonia J18.9 Laterality: right Lung location: lower lobe of lung Pneumonia type: due to unspecified organism Obstructive sleep apnea G47.33 Peripheral edema R60.9
[2023-09-23] MEDS: dilTIAZem 30 mg Tablet 60 MG PO (21:02)
[2023-09-23] MEDS: atorvastatin 40 mg Tablet PO (21:03)
[2023-09-23 22:09] LABS: Glucose Point of Care 230 mg/dL (70-110)
--- NOTE | 2023-09-23 23:00 | PC.NURSE ---
Pain Patient complaining of a severe headache. Dr. Cantu contacted; order received to change PRN tylenol reason from fever to fever as well as pain.
[2023-09-23] MEDS: acetaminophen 500 mg Tablet PO (23:13)
[2023-09-24] VITALS (29 sets, daily range): BP systolic 88–126; BP diastolic 61–89; PULSE 83–117; RESP 12–20; TEMP 36.4–36.6; O2SAT 80–98
--- NOTE | 2023-09-24 00:09 | ECG_ITS ---
[facility] Test Date: 2023-09-24 Pat Name: Katie Andrews Department: Room: ICU03 Gender: Female Computer Customer Support Specialist: : [id number] Requested By: Deana Cantu Order Number: [id number] Reading MD: Alberta Archer M.D. Measurements Intervals [place] Rate: 103 P: 0 WI: 0 QRS: 40 QRSD: 89 T: 74 QT: 377 QTc: 494 Interpretive Statements ATRIAL FIBRILLATION WITH RAPID VENTRICULAR RESPONSE LOW QRS VOLTAGE IN PRECORDIAL LEADS [QRS DEFLECTION < 1.0 mV IN CHEST LEADS] SEPTAL MYOCARDIAL INFARCTION [40+ ms Q WAVE IN V1/V2], OF INDETERMINATE AGE Compared to ECG 09/21/2023 23:52:48 Low QRS voltage now present Sinus rhythm no longer present Myocardial infarct finding still present Electronically Signed On 09-25-2023 19:13:00 TESTER/LIFT TRUCKER by Alberta Archer M.D. [id number]
[2023-09-24] MEDS: morphine 4 mg/mL SDV 1 mL 2 MG IVP (00:58)
--- NOTE | 2023-09-24 01:00 | PC.NURSE ---
Chest Pain Patient complaining of chest pain at an 8 on a numerical 1-10 pain scale. Patient denies shortness of breath and nausea, no change in heart rhythm detectable on bedside monitor. She states this feels like when I had my heart attack. Dr. Cantu contacted and orders received for EKG, troponin series, as well as 2 mg morphine IVP once. See MAR for details.
[2023-09-24 01:22] LABS: Troponin(5th) Baseline 32 ng/L (0-10)
[2023-09-24 02:58] LABS: Troponin 5 2HR 32.68 ng/L (0-10); Troponin 5 2HR Delta 0.68 ABS# (0-10)
[2023-09-24] MEDS: dilTIAZem 30 mg Tablet 60 MG PO ×4 (03:27→20:30)
[2023-09-24 03:55] LABS: Basophils # 0.1 10^3/uL (0.0-0.1); Basophils % 0.6 %; Eosinophils # 0.1 10^3/uL (0.0-0.8); Eosinophils % 1.2 %; Hematocrit 43.5 % (36-47); Lymphocytes # 2.4 10^3/uL (0.8-4.8); Lymphocytes % 20.1 %; Mean Corpuscular HGB Conc 33.1 g/dL (30-55); Mean Corpuscular Hemoglobin 30.4 pg (27-33); Mean Corpuscular Volume 91.8 fl (85-98); Monocytes # 0.9 10^3/uL (0.2-0.9); Monocytes % 7.7 %; Neutrophils # 8.38 10^3/uL (1.8-7.7); Neutrophils % 69.7 %; Nucleated Red Blood Cells % 0 %; Platelet Count 267 10^3/cmm (157-399); Red Blood Count 4.74 10^6/uL (3.85-5.65); Red Cell Distribution Width 13.8 % (12.1-15.1); White Blood Count 12.01 10^3/uL (3.29-11.43)
[2023-09-24 04:00] LABS: Alanine Aminotransferase 24 U/L (0-33); Albumin Level 3.9 g/dL (3.5-5.2); Alkaline Phosphatase 104 U/L (35-105); Anion Gap 16.5 (5-19); Aspartate Amino Transferase 17 U/L (0-32); Blood Urea Nitrogen 24 mg/dL (8-23); C Reactive Protein 44.6 mg/L (0.0-4.9); Carbon Dioxide 30 mmol/L (22-29); Chloride 97 mmol/L (98-107); Globulin 3.4 g/dL (1.3-4.6); Glomerular Filtration Rate 49.8 mL/min (90-130); Glucose 160 mg/dL (65-115); Magnesium 1.9 mg/dL (1.7-2.3); Osmolality Calculated 297 mOsm/kg (285-295); Phosphorus 4.1 mg/dL (2.5-4.5); Potassium 3.5 mmol/L (3.5-5.1); Sodium 140 mmol/L (136-145); Total Bilirubin 0.5 mg/dL (0.15-1.2); Total Protein 7.3 g/dL (6.6-8.7)
[2023-09-24 04:11] LABS: NT Pro B Type Natriuretic Pept 4913 pg/mL (0-125); Procalcitonin 0.09 ng/mL (0-0.5)
[2023-09-24] MEDS: buPROPion XL (24 HR) 300 mg Tablet PO (05:04)
[2023-09-24 06:29] LABS: Troponin 5 6HR 30.49 ng/L (0-10)
[2023-09-24 06:32] LABS: Troponin 5 6HR Delta -1.51 ng/L (0-12)
[2023-09-24] MEDS: acetaminophen 500 mg Tablet PO ×2 (07:12→15:45)
[2023-09-24 07:34] LABS: Glucose Point of Care 184 mg/dL (70-110)
[2023-09-24] MEDS: cefTRIAXone 1,000 MG in sodium chloride 0.9% (plus) 50 ML 100 MG IV (08:38)
[2023-09-24] MEDS: metoprolol tartrate 50 mg Tablet 75 MG PO ×2 (08:41→20:30)
[2023-09-24] MEDS: apixaban 5 mg Tablet PO ×2 (08:41→17:18)
[2023-09-24] MEDS: azithromycin 250 mg Tablet 500 MG PO (08:41)
[2023-09-24] MEDS: sennosides-docusate Tablet 1 TAB PO (08:41)
[2023-09-24] MEDS: clopidogrel 75 mg Tablet PO (08:41)
[2023-09-24] MEDS: insulin lispro 100 unit/1 mL SUBCUT ×3 (08:41→17:18)
[2023-09-24] MEDS: amiodarone 200 mg Tablet 400 MG PO ×2 (08:41→17:18)
[2023-09-24] MEDS: HYDROcodone-acetaminophen 5-325 mg Tablet 1 TAB PO ×2 (08:55→20:31)
[2023-09-24] MEDS: lisinopril 20 mg Tablet PO (10:22)
[2023-09-24 13:42] LABS: Glucose Point of Care 167 mg/dL (70-110)
--- NOTE | 2023-09-24 15:15 | P.PN_ITS ---
Subjective 2 Subjective: Patient was seen this morning, she is in A-fib, but heart rates in the low 110s, has intermittent shortness of breath, no fevers, no chills, she tells me she has a history of HIV, she has Biktarvy but it is at home, the last time her CD4 count was okay she tells me and her HIV was undetectable, denies any fevers, no chills, no cough Vitals/I&O/Wt Last Vital Signs Temp 97.7 F 09/24/23 10:49 Pulse 96 09/24/23 13:00 Resp 14 09/24/23 13:00 BP 104/77 09/24/23 13:00 Pulse Ox 95 09/24/23 13:00 O2 Del Method Nasal Cannula 09/24/23 13:00 O2 Flow Rate 2 09/24/23 13:00 09/24/23 09/24/23 09/24/23 06:59 14:59 22:59 Intake Total 600 / 1030.582 540 / 540 Output Total 700 / 700 Balance 600 / 1030.582 -160 / -160 Weight last 48 hrs Weight 100.244 kg Weight 108.862 kg Physical Exam 2 Const: COMMON NORMALS: no acute distress and patient oriented x3 Resp: COMMON NORMALS: normal respiratory effort, No retractions, No use of accessory muscles and clear to auscultation bilaterally AUSCULTATION: clear to auscultation bilaterally Cardio: COMMON NORMALS: S1 normal heart sound present and S2 normal heart sound present RATE: tachycardic RHYTHM: abnormal rhythm HEART SOUNDS: S 1 normal heart sound present and S2 normal heart sound present GI: COMMON NORMALS: Normal to inspection, nondistended, normoactive bowel sounds present and non-tender Extremity: COMMON NORMALS: no pedal edema Neuro: COMMON NORMALS: patient oriented x3 Psych: COMMON NORMALS: mental status grossly normal Data 09/24/23 02:10 09/24/23 02:10 Micro: Microbiology 09/21/23 23:50 Gram Stain - Final Sputum - Expectorated Sputum Sputum Culture - Final A&P Assessment and plan (1) Accelerated hypertension: (2) Acute diastolic heart failure: (3) Pulmonary HTN: (4) Community acquired pneumonia: (5) Anticoagulation adequate with anticoagulant therapy: (6) COPD exacerbation: (7) Hypoxemia: (8) Pneumonia: Qualifiers: Laterality: right Lung location: lower lobe of lung Pneumonia type: d ue to unspecified organism Qualified Code(s): J18.9 - Pneumonia, unspecified organism (9) Obstructive sleep apnea: (10) Peripheral edema: Plan A-fib with RVR, ? Amiodarone 400 twice daily, ? Amiodarone drip, ? meToprol 75 twice daily ? Cardizem 60 every 6 hours Acute COPD exacerbation Active smoker Community-acquired pneumonia counitnue ceftriaxone and azithromycin DuoNeb treatment Will require sputum culture CT/CT angio chest PE protcl [id number] IMPRESSION: 1. Negative for pulmonary embolus. 2. Small bilateral pleural effusions. 3. Coronary artery atherosclerotic calcifications. 4. Hepatic steatosis. 5. Left kidney benign parenchymal calcification. 6. Several subcentimeter short axis nonspecific mediastinal lymph nodes. 7. Patchy bilateral largely dependent atelectasis versus infiltrate. - BiPAP to decrease the work of breathing Significant leukocytosis, tachypnea, tachycardia Continue Rocephin ? Continue azithromycin Hypertensive urgency, metoprolol to 75 twice daily Signs of endorgan damage with leakage of troponin No active chest pain Her chest pain is reproducible Acute diastolic CHF exacerbation with underlying pulmonary hypertension Patient is still smoking She may need referral to pulmonology clinic She is on trilogy at home Looks euvolemic today hold off on Lasix Cardiac diet A-fib without RVR continue Eliquis I will discontinue aspirin, would only keep her on Plavix along with Eliquis She should not be taking celecoxib along aspirin or Plavix which can increase the chance of gastric ulcer and thromboembolic phenomenon Full code ? Eliquis for DVT prophylaxis Attestations 2 Medical Necessity Statement*: Patient requires hospitalization with A-fib with RVR, COPD, pneumonia Diagnoses Accelerated hypertension I10 Acute diastolic heart failure I50.31 Pulmonary HTN I27.20 Community acquired pneumonia J18.9 Anticoagulation adequate with anticoagulant therapy Z79.01 COPD exacerbation J44.1 Hypoxemia R09.02 Pneumonia J18.9 Laterality: right Lung location: lower lobe of lung Pneumonia type: due to unspecified organism Obstructive sleep apnea G47.33 Peripheral edema R60.9
[2023-09-24 16:49] LABS: Glucose Point of Care 216 mg/dL (70-110)
--- NOTE | 2023-09-24 17:29 | PC.NURSE ---
Transfer: Report given to [facility]. Patient transferred via wheelchair belongings include purse, clothing, shoes, glasses, cellphone, and phone live in housekeeper. Shift SUmmary: uneventful shift. patient has been up to a chair for breakfast and lunch. Heart rate better controlled, though still afib, after Cardizem was started. on 2 Liters nasal cannula which is her home baseline.
[2023-09-24] MEDS: atorvastatin 40 mg Tablet PO (20:30)
[2023-09-24 20:53] LABS: Glucose Point of Care 125 mg/dL (70-110)
[2023-09-25] VITALS (8 sets, daily range): BP systolic 93–120; BP diastolic 55–87; PULSE 53–113; RESP 14–20; TEMP 36.5–36.8; O2SAT 94–97
[2023-09-25] MEDS: dilTIAZem 30 mg Tablet 60 MG PO ×4 (02:20→22:20)
[2023-09-25] MEDS: acetaminophen 500 mg Tablet PO (04:03)
[2023-09-25] MEDS: HYDROcodone-acetaminophen 5-325 mg Tablet 1 TAB PO ×2 (05:04→18:05)
[2023-09-25] MEDS: buPROPion XL (24 HR) 300 mg Tablet PO (05:05)
[2023-09-25 06:08] LABS: Basophils # 0.1 10^3/uL (0.0-0.1); Basophils % 0.7 %; Eosinophils # 0.2 10^3/uL (0.0-0.8); Eosinophils % 1.6 %; Hematocrit 43.6 % (36-47); Lymphocytes # 1.7 10^3/uL (0.8-4.8); Lymphocytes % 14.2 %; Mean Corpuscular HGB Conc 33.3 g/dL (30-55); Mean Corpuscular Hemoglobin 30.9 pg (27-33); Mean Platelet Volume 9.5 fL (7.4-10.4); Monocytes # 0.9 10^3/uL (0.2-0.9); Monocytes % 7.9 %; Neutrophils # 8.78 10^3/uL (1.8-7.7); Neutrophils % 75.1 %; Nucleated Red Blood Cells % 0 %; Platelet Count 277 10^3/cmm (157-399); Red Blood Count 4.69 10^6/uL (3.85-5.65); Red Cell Distribution Width 13.5 % (12.1-15.1)
[2023-09-25 06:39] LABS: Glucose Point of Care 191 mg/dL (70-110)
[2023-09-25 06:45] LABS: NT Pro B Type Natriuretic Pept 1576 pg/mL (0-125); Procalcitonin 0.07 ng/mL (0-0.5)
[2023-09-25 08:39] LABS: Alanine Aminotransferase 21 U/L (0-33); Albumin Level 4.1 g/dL (3.5-5.2); Alkaline Phosphatase 113 U/L (35-105); Anion Gap 14.7 (5-19); Aspartate Amino Transferase 18 U/L (0-32); Blood Urea Nitrogen 30 mg/dL (8-23); C Reactive Protein 20.1 mg/L (0.0-4.9); Calcium 10.1 mg/dL (8.5-10.5); Carbon Dioxide 32 mmol/L (22-29); Chloride 96 mmol/L (98-107); Globulin 3.2 g/dL (1.3-4.6); Glomerular Filtration Rate 55.6 mL/min (90-130); Glucose 199 mg/dL (65-115); Magnesium 1.9 mg/dL (1.7-2.3); Osmolality Calculated 300 mOsm/kg (285-295); Phosphorus 3.7 mg/dL (2.5-4.5); Potassium 3.7 mmol/L (3.5-5.1); Sodium 139 mmol/L (136-145); Total Bilirubin 0.5 mg/dL (0.15-1.2); Total Protein 7.3 g/dL (6.6-8.7)
[2023-09-25] MEDS: insulin lispro 100 unit/1 mL SUBCUT ×3 (10:00→18:06)
[2023-09-25] MEDS: apixaban 5 mg Tablet PO ×2 (10:00→18:05)
[2023-09-25] MEDS: clopidogrel 75 mg Tablet PO (10:00)
[2023-09-25] MEDS: amiodarone 200 mg Tablet 400 MG PO ×2 (10:00→18:05)
[2023-09-25] MEDS: lisinopril 20 mg Tablet PO (10:01)
[2023-09-25] MEDS: sennosides-docusate Tablet 1 TAB PO (10:01)
[2023-09-25] MEDS: azithromycin 250 mg Tablet 500 MG PO (10:01)
[2023-09-25] MEDS: metoprolol tartrate 50 mg Tablet 75 MG PO ×2 (10:01→22:20)
--- NOTE | 2023-09-25 11:46 | PC.SOCIAL ---
IMM Updated Updated pt on IMM. No questions voiced. Provided pt a copy. Initialed, dated, & timed copy in chart.
[2023-09-25 11:58] LABS: Glucose Point of Care 269 mg/dL (70-110)
--- NOTE | 2023-09-25 13:00 | PC.NURSE ---
Midline placed to right basilic vein. Referral to vascular access nurse for IV access. After failed attempt at US guided IV, discussed access with Dr. Sahu. Orders received for midline. Pt to have IV antibiotics x 3 more days. Risks and benefits discussed and informed consent obtained from patient. Right arm assessed with right basilic vein measuring 4.2 mm, straight, and apparent best choice for placement. Using sterile technique and MST, right basilic vein accessed x 1 stick. Mid-arm circumference measured 10 cm from right AC 35 cm. Trimmed cath 10 cm with 1 cm external length noted. Line secured with stat-lock. Insertion site covered with Biopatch and TSM. Report given to bedside nurse, Robyn.
[2023-09-25] MEDS: cefTRIAXone 1,000 MG in sodium chloride 0.9% (plus) 50 ML 100 MG IV (13:38)
[2023-09-25 16:44] LABS: Glucose Point of Care 166 mg/dL (70-110)
--- NOTE | 2023-09-25 17:42 | P.PN_ITS ---
Subjective 2 Subjective: This morning, she continues to complain of fatigue, malaise, shortness of breath, Vitals/I&O/Wt Last Vital Signs Temp 98.2 F 09/25/23 16:00 Pulse 57 L 09/25/23 16:00 Resp 19 H 09/25/23 16:00 BP 93/62 09/25/23 16:00 Pulse Ox 97 09/25/23 16:00 O2 Del Method Nasal Cannula 09/25/23 16:00 O2 Flow Rate 2 09/25/23 08:37 09/25/23 09/25/23 09/25/23 06:59 14:59 22:59 Intake Total 890 / 890 Balance 890 / 890 Weight last 48 hrs Weight 101.236 kg Physical Exam 2 Const: COMMON NORMALS: no acute distress and patient oriented x3 Resp: COMMON NORMALS: normal respiratory effort, No retractions, No use of accessory muscles and clear to auscultation bilaterally AUSCULTATION: clear to auscultation bilaterally Cardio: COMMON NORMALS: regular rate, regular rhythm, S1 normal heart sound present and S2 normal heart sound present RATE: regular rate RHYTHM: r egular rhythm HEART SOUNDS: S1 normal heart sound present and S2 normal heart sound present GI: COMMON NORMALS: Normal to inspection, nondistended, normoactive bowel sounds present and non-tender Extremity: COMMON NORMALS: no pedal edema Neuro: COMMON NORMALS: patient oriented x3 Psych: COMMON NORMALS: mental status grossly normal Data 09/25/23 06:01 09/25/23 08:00 Micro: Microbiology 09/21/23 23:50 Gram Stain - Final Sputum - Expectorated Sputum Sputum Culture - Final A&P Assessment and plan (1) Accelerated hypertension: (2) Acute diastolic heart failure: (3) Pulmonary HTN: (4) Community acquired pneumonia: (5) Anticoagulation adequate with anticoagulant therapy: (6) COPD exacerbation: (7) Hypoxemia: (8) Pneumonia: Qualifiers: Laterality: right Lung location: lower lobe of lung Pneumonia type: d ue to unspecified organism Qualified Code(s): J18.9 - Pneumonia, unspecified organism (9) Obstructive sleep apnea: (10) Peripheral edema: (11) HIV disease: Plan A-fib with RVR, ? Amiodarone 400 twice daily, ? Amiodarone drip, ? meToprol 75 twice daily ? Cardizem 60 every 6 hours Acute COPD exacerbation Active smoker Community-acquired pneumonia counitnue ceftriaxone and azithromycin DuoNeb treatment Will require sputum culture CT/CT angio chest PE protcl [id number] IMPRESSION: 1. Negative for pulmonary embolus. 2. Small bilateral pleural effusions. 3. Coronary artery atherosclerotic calcifications. 4. Hepatic steatosis. 5. Left kidney benign parenchymal calcification. 6. Several subcentimeter short axis nonspecific mediastinal lymph nodes. 7. Patchy bilateral largely dependent atelectasis versus infiltrate. - BiPAP to decrease the work of breathing Significant leukocytosis, tachypnea, tachycardia Continue Rocephin ? Continue azithromycin Hypertensive urgency, metoprolol to 75 twice daily Signs of endorgan damage with leakage of troponin No active chest pain Her chest pain is reproducible Acute diastolic CHF exacerbation with underlying pulmonary hypertension Patient is still smoking She may need referral to pulmonology clinic She is on trilogy at home Looks euvolemic today hold off on Lasix Cardiac diet A-fib without RVR continue Eliquis I will discontinue aspirin, would only keep her on Plavix along with Eliquis She should not be taking celecoxib along aspirin or Plavix which can increase the chance of gastric ulcer and thromboembolic phenomenon Full code ? Eliquis for DVT prophylaxis Attestations 2 Medical Necessity Statement*: Patient requires hospitalization for A-fib, shortness of breath, pneumonia Diagnoses Accelerated hypertension I10 Acute diastolic heart failure I50.31 Pulmonary HTN I27.20 Community acquired pneumonia J18.9 Anticoagulation adequate with anticoagulant therapy Z79.01 COPD exacerbation J44.1 Hypoxemia R09.02 Pneumonia J18.9 Laterality: right Lung location: lower lobe of lung Pneumonia type: due to unspecified organism Obstructive sleep apnea G47.33 Peripheral edema R60.9 HIV disease B20
[2023-09-25 20:56] LABS: Glucose Point of Care 162 mg/dL (70-110)
[2023-09-25] MEDS: atorvastatin 40 mg Tablet PO (22:20)
[2023-09-26 03:47] VITALS: BP 93/62; PULSE 55; RESP 15; TEMP 36.7; O2SAT 97
[2023-09-26] MEDS: dilTIAZem 30 mg Tablet 60 MG PO ×2 (03:56→08:59)
[2023-09-26] MEDS: HYDROcodone-acetaminophen 5-325 mg Tablet 1 TAB PO (04:13)
[2023-09-26 05:48] LABS: Basophils # 0.1 10^3/uL (0.0-0.1); Basophils % 0.5 %; Eosinophils # 0.2 10^3/uL (0.0-0.8); Eosinophils % 1.5 %; Hematocrit 40.4 % (36-47); Lymphocytes # 1.9 10^3/uL (0.8-4.8); Mean Corpuscular HGB Conc 33.2 g/dL (30-55); Mean Corpuscular Hemoglobin 30.2 pg (27-33); Mean Corpuscular Volume 91.2 fl (85-98); Mean Platelet Volume 9.6 fL (7.4-10.4); Monocytes # 0.9 10^3/uL (0.2-0.9); Monocytes % 8.6 %; Neutrophils % 70.7 %; Nucleated Red Blood Cells % 0 %; Platelet Count 288 10^3/cmm (157-399); Red Blood Count 4.43 10^6/uL (3.85-5.65); Red Cell Distribution Width 13.5 % (12.1-15.1); White Blood Count 10.32 10^3/uL (3.29-11.43)
[2023-09-26 05:58] LABS: Alanine Aminotransferase 18 U/L (0-33); Albumin Level 4.1 g/dL (3.5-5.2); Alkaline Phosphatase 100 U/L (35-105); Anion Gap 14.7 (5-19); Aspartate Amino Transferase 22 U/L (0-32); Blood Urea Nitrogen 38 mg/dL (8-23); C Reactive Protein 14.1 mg/L (0.0-4.9); Calcium 9.8 mg/dL (8.5-10.5); Carbon Dioxide 32 mmol/L (22-29); Chloride 98 mmol/L (98-107); Globulin 3.2 g/dL (1.3-4.6); Glomerular Filtration Rate 37.7 mL/min (90-130); Glucose 187 mg/dL (65-115); Magnesium 1.9 mg/dL (1.7-2.3); Osmolality Calculated 306 mOsm/kg (285-295); Phosphorus 3.8 mg/dL (2.5-4.5); Potassium 3.7 mmol/L (3.5-5.1); Sodium 141 mmol/L (136-145); Total Bilirubin 0.4 mg/dL (0.15-1.2); Total Protein 7.3 g/dL (6.6-8.7)
[2023-09-26 06:08] LABS: NT Pro B Type Natriuretic Pept 555 pg/mL (0-125); Procalcitonin 0.09 ng/mL (0-0.5)
[2023-09-26 06:25] LABS: Glucose Point of Care 185 mg/dL (70-110)
[2023-09-26] MEDS: buPROPion XL (24 HR) 300 mg Tablet PO (06:49)
[2023-09-26 07:18] VITALS: PULSE 54; RESP 16; O2SAT 97
[2023-09-26 07:53] VITALS: BP 120/75; PULSE 52; RESP 16; TEMP 37; O2SAT 93
[2023-09-26] MEDS: azithromycin 250 mg Tablet PO (09:00)
[2023-09-26] MEDS: insulin lispro 100 unit/1 mL SUBCUT (09:00)
[2023-09-26] MEDS: lisinopril 20 mg Tablet PO (09:00)
[2023-09-26] MEDS: cefTRIAXone 1,000 MG in sodium chloride 0.9% (plus) 50 ML 100 MG IV (09:00)
[2023-09-26] MEDS: apixaban 5 mg Tablet PO (09:00)
[2023-09-26] MEDS: sennosides-docusate Tablet 1 TAB PO (09:00)
[2023-09-26] MEDS: amiodarone 200 mg Tablet 400 MG PO (09:00)
[2023-09-26] MEDS: clopidogrel 75 mg Tablet PO (09:00)
[2023-09-26] MEDS: metoprolol tartrate 50 mg Tablet 75 MG PO (09:04)
--- NOTE | 2023-09-26 10:29 | P.DS_ITS ---
Discharge Providers Date of Admission: 09/21/23 22:45 Date of Discharge: September 26, 2023 Attending Provider at Admission: Deana Cantu MD Attending Provider at Discharge: Kvng Sahu MD Primary Care Provider: Alexa Ayers APN Diagnoses at Discharge Discharge Diagnosis (1) Accelerated hypertension: Status: Acute (2) Acute diastolic heart failure: Status: Acute (3) Pulmonary HTN: Status: Acute (4) Community acquired pneumonia: Status: Acute (5) Anticoagulation adequate with anticoagulant therapy: Status: Acute (6) COPD exacerbation: Status: Acute (7) Hypoxemia: Status: Acute (8) Pneumonia: Status: Acute Qualifiers: Laterality: right Lung location: lower lobe of lung Pneumonia type: due to unspecified organism Qualified Code(s): J18.9 - Pneumonia, unspecified organism (9) Obstructive sleep apnea: Status: Acute (10) Peripheral edema: Status: Acute (11) HIV disease: Status: Acute Reason for Visit Reason for Visit: sob Hospital Course Hospital Course Katie Andrews is a 67 year old female with history of HIV, CHF, pulmonary hypertension, active smoker, uses CPAP at night, uses oxygen on as needed basis in the daytime presented with chief complaint of worsening orthopnea and PND and shortness of breath. She has not noticed any nausea, vomiting but endorsing subjective fever with chest pain, she describing her pain as substernal, reproducible which gets worse with deep inspiration. She has not noticed productive cough. Patient has history of A-fib for which she takes Eliquis. In the ER she was diagnosed with pneumonia, I have requested D-dimer which came back high for her age She does have clinical signs of fluid overload She does have significant leukocytosis, I requested lactic acid, troponin without significant delta, BNP 1600, patient has hypertensive urgency as well blood pressure 182/109 Currently she is on 4 L she was given ceftriaxone in the ER, I have requested lactic Patient was admitted to [facility] for A-fib with RVR, initially managed on amiodarone drip transitioned off, to p.o. amiodarone, dose of metoprolol was increased to 75 twice daily, continue to have episodes of A-fib with RVR, started on Cardizem, up to 60 every 6, heart rates are well- controlled, throughout her hospitalization, will be discharged on a tapering dose of amiodarone, metoprolol 75 twice daily, and Cardizem 180 once daily, with a follow-up with cardiology as outpatient For her community-acquired pneumonia received broad-spectrum antibiotic therapy during her hospitalization overall clinically improved, discharged on Augmentin Had hypertensive urgency during her hospitalization, discharged on medications as below Acute diastolic CHF exacerbation with pulmonary hypertension required diuresis during the hospitalization, discharged as diuresis as below Physical Exam Const: COMMON NORMALS: no acute distress and patient oriented x3 Resp: COMMON NORMALS: normal respiratory effort, No retractions, No use of accessory muscles and clear to auscultation bilaterally AUSCULTATION: clear to auscultation bilaterally Cardio: COMMON NORMALS: regular rate, regular rhythm, S1 normal heart sound present and S2 normal heart sound present RATE: regular rate RHYTHM: regular rhythm HEART SOUNDS: S1 normal heart sound present and S2 normal heart sound present GI: COMMON NORMALS: Normal to inspection, nondistended, normoactive bowel sounds present and non-tender Extremity: COMMON NORMALS: no pedal edema Neuro: COMMON NORMALS: patient oriented x3 Psych: COMMON NORMALS: mental status grossly normal Discharge Data Studies Completed and Pending Completed Studies During Hospitalization Category Date Time Status CTA PE [CT angio chest PE protcl [id number]] Stat Cat Scan 09/21/23 21:24 Completed XR chest 1V portable [id number] Stat Exams 09/21/23 17:34 Completed Pending at discharge Category Date Time Status Blood Culture Stat Lab 09/21/23 18:18 Results Radiology Impressions Chest X-Ray 09/21/23 17:34 IMPRESSION: Subtle opacity in the medial right lung base, could reflect a developing infiltrate. Chest CTA 09/21/23 21:24 IMPRESSION: 1. Negative for pulmonary embolus. 2. Small bilateral pleural effusions. 3. Coronary artery atherosclerotic calcifications. 4. Hepatic steatosis. 5. Left kidney benign parenchymal calcification. 6. Several subcentimeter short axis nonspecific mediastinal lymph nodes. 7. Patchy bilateral largely dependent atelectasis versus infiltrate. Laboratory Results WBC 10.32 10^3/uL (3.29-11.43) 09/26/23 05:14 RBC 4.43 10^6/uL (3.85-5.65) 09/26/23 05:14 Hgb 13.40 g/dL (11.27-16.99) 09/26/23 05:14 Hct 40.4 % (36-47) 09/26/23 05:14 MCV 91.2 fl (85-98) 09/26/23 05:14 MCH 30.2 pg (27-33) 09/26/23 05:14 MCHC 33.2 g/dL (30-55) 09/26/23 05:14 RDW 13.5 % (12.1-15.1) 09/26/23 05:14 Plt Count 288 10^3/cmm (157-399) 09/26/23 05:14 MPV 9.6 fL (7.4-10.4) 09/26/23 05:14 Neut % (Auto) 70.7 % 09/26/23 05:14 Lymph % (Auto) 18.0 % 09/26/23 05:14 Smyth % (Auto) 8.6 % 09/26/23 05:14 Eos % (Auto) 1.5 % 09/26/23 05:14 Baso % (Auto) 0.5 % 09/26/23 05:14 Neut # (Auto) 7.30 10^3/uL (1.8-7.7) 09/26/23 05:14 Lymph # (Auto) 1.9 10^3/uL (0.8-4.8) 09/26/23 05:14 Smyth # (Auto) 0.9 10^3/uL (0.2-0.9) 09/26/23 05:14 Eos # (Auto) 0.2 10^3/uL (0.0-0.8) 09/26/23 05:14 Baso # (Auto) 0.1 10^3/uL (0.0-0.1) 09/26/23 05:14 Nucleated RBC % (auto) 0 % 09/26/23 05:14 Nucleated RBCs # 0.0 /100WBC 09/26/23 05:14 D-Dimer 1.20 ug/mLFEU (0-0.59) H 09/21/23 18:18 Specimen Type Arterial 09/21/23 18:24 Sample Site Brachial, right 09/21/23 18:24 ABG pH 7.35 (7.35-7.45) 09/21/23 18:24 ABG pCO2 54.9 mmHg (35-45) H 09/21/23 18:24 ABG pO2 61.3 mmHg (80.0-100.0) L 09/21/23 18:24 ABG PO2/FiO2 Ratio 0 09/21/23 18:24 ABG HCO3 30.5 mmol/L (22-26) H 09/21/23 18:24 ABG O2 Saturation 92.5 09/21/23 18:24 ABG Base Excess 3.6 mmol/L (-2.0-2.0) H 09/21/23 18:24 Eddie Test N/a 09/21/23 18:24 A-a O2 Gradient 17.0 mmHg (5-10) H 09/21/23 18:24 Hematocrit 39.7 % (37-47) 09/21/23 18:24 Hgb O2 Saturation 89.3 % (95-100) L 09/21/23 18:24 Carboxyhemoglobin 2.9 %THgb (0.4-20.1) 09/21/23 18:24 Methemoglobin 0.6 % (0.4-1.5) 09/21/23 18:24 Total Hemoglobin 12.9 g/dL (12-16) 09/21/23 18:24 Sodium 145.0 mmol/L (131-143) H 09/21/23 18:24 Potassium 4.0 mmol/L (3.5-5.0) 09/21/23 18:24 Glucose 212.0 mg/dL (70-115) H 09/21/23 18:24 Ionized Calcium 1.2 mmol/L (1.1-1.4) 09/21/23 18:24 O2 Delivery Device Nc 09/21/23 18:24 O2 Liters/Min 4.0 % 09/21/23 18:24 FiO2 36.0 % 09/21/23 18:24 Patternmaker Metal Bench ID Amh 09/21/23 18:24 Sodium 141 mmol/L (136-145) 09/26/23 05:14 Potassium 3.7 mmol/L (3.5-5.1) 09/26/23 05:14 Chloride 98 mmol/L (98-107) 09/26/23 05:14 Carbon Dioxide 32 mmol/L (22-29) H 09/26/23 05:14 Anion Gap 14.7 (5-19) 09/26/23 05:14 BUN 38 mg/dL (8-23) H 09/26/23 05:14 Creatinine 1.4 mg/dL (0.5-0.9) H 09/26/23 05:14 GFR Calculation 37.7 mL/min (90-130) L 09/26/23 05:14 Glucose 187 mg/dL (65-115) H 09/26/23 05:14 POC Glucose 185 mg/dL (70-110) H 09/26/23 06:21 Estimat Average Glucose 214 09/21/23 18:18 Hemoglobin A1c 9.1 % (4.0-6.0) H 09/21/23 18:18 Calculated Osmolality 306 mOsm/kg (285-295) H 09/26/23 05:14 Lactic Acid 2.3 mmol/L (0.5-2.2) H 09/21/23 18:18 Lactic Acid (Sepsis) 2.0 mmol/L (0.5-2.2) 09/22/23 01:27 Calcium 9.8 mg/dL (8.5-10.5) 09/26/23 05:14 Phosphorus 3.8 mg/dL (2.5-4.5) 09/26/23 05:14 Magnesium 1.9 mg/dL (1.7-2.3) 09/26/23 05:14 Total Bilirubin 0.4 mg/dL (0.15-1.2) 09/26/23 05:14 AST 22 U/L (0-32) 09/26/23 05:14 ALT 18 U/L (0-33) 09/26/23 05:14 Alkaline Phosphatase 100 U/L (35-105) 09/26/23 05:14 Troponin T Baseline 32 ng/L (0-10) H 09/24/23 00:54 Troponin T 120 Minute 32.68 ng/L (0-10) H 09/24/23 02:10 Delta Troponin T 0.68 ABS# (0-10) 09/24/23 02:10 Troponin T Hi Sens 6Hr 30.49 ng/L (0-10) H 09/24/23 05:59 Troponin T Hi Sens 6Hr Delta -1.51 ng/L (0-12) L 09/24/23 05:59 C-Reactive Protein 14.1 mg/L (0.0-4.9) H 09/26/23 05:14 NT-Pro-B Natriuret Pep 555 pg/mL (0-125) H 09/26/23 05:14 Total Protein 7.3 g/dL (6.6-8.7) 09/26/23 05:14 Albumin 4.1 g/dL (3.5-5.2) 09/26/23 05:14 Globulin 3.2 g/dL (1.3-4.6) 09/26/23 05:14 Vitamin B12 711 pg/mL (232-1245) 09/22/23 06:24 Procalcitonin 0.09 ng/mL (0-0.5) 09/26/23 05:14 TSH 1.64 uIU/mL (0.27-4.20) 09/21/23 18:18 Urine Color Yellow (Yellow) 09/21/23 20:19 Urine Appearance Clear (CLEAR) 09/21/23 20:19 Urine pH 6.5 (5-7) 09/21/23 20:19 Ur Specific [place] 1.010 (1.005-1.030) 09/21/23 20:19 Urine Protein 1+ (Negative) H 09/21/23 20:19 Urine Glucose (UA) 4+ (Normal) H 09/21/23 20:19 Urine Ketones Negative (Negative) 09/21/23 20:19 Urine Blood Neg (Negative) 09/21/23 20:19 Urine Nitrate Negative (Negative) 09/21/23 20:19 Urine Bilirubin Neg (Negative) 09/21/23 20:19 Urine Urobilinogen Neg mg/dL (Negative) 09/21/23 20:19 Ur Leukocyte Esterase Negative (Negative) 09/21/23 20:19 Urine RBC None /hpf (0-2) 09/21/23 20:19 Urine WBC None /hpf (0-5) 09/21/23 20:19 Ur Squamous Epith Cells 5-10 /hpf (0-5) H 09/21/23 20:19 Amorphous Sediment Not Reportable 09/21/23 20:19 Urine Bacteria 1+ /hpf (NONE) H 09/21/23 20:19 Urine Opiates Screen Negative ng/mL (Negative) 12/18/23 20:19 Ur Barbiturates Screen Negative ng/mL (Negative) 09/21/23 20:19 Ur Phencyclidine Scrn Negative ng/mL (Negative) 09/21/23 20:19 Ur Amphetamines Screen Negative ng/mL (Negative) 09/21/23 20:19 U Benzodiazepines Scrn Negative ng/mL (Negative) 09/21/23 20:19 Urine Cocaine Screen Negative ng/mL (Negative) 09/21/23 20:19 U Marijuana (THC) Screen Positive ng/mL (Negative) H 09/21/23 20:19 Vitals Last Vital Signs Temp 98.6 F 09/26/23 07:53 Pulse 52 L 09/26/23 07:53 Resp 16 09/26/23 07:53 BP 120/75 09/26/23 07:53 Pulse Ox 93 09/26/23 07:53 O2 Del Method Nasal Cannula 09/26/23 07:53 O2 Flow Rate 2 09/25/23 20:00 FiO2 2 09/26/23 07:18 Discharge Plan Discharge Patient Disposition: Home Condition: Stable Prescriptions: New amiodarone 200 mg tablet See Rx Instructions .ROUTE .COMPLEX Qty: 60 0RF Rx Instructions: take 1 tablet bid for 1 week, then 1 tablet daily diltiazem HCl 180 mg capsule,extended release 24hr 180 mg PO Q24H 30 Days Qty: 30 0RF amoxicillin-pot clavulanate 875-125 mg tablet 1 tab PO BID 5 Days Qty: 10 0RF metoprolol tartrate 50 mg Tablet 75 mg PO BID@0900,2100 30 Days Qty: 90 0RF Continued Eliquis 5 mg tablet 5 mg PO BID aripiprazole [Abilify] 15 mg tablet 15 mg PO QAM sertraline 100 mg tablet 100 mg PO QAM atorvastatin 80 mg tablet 80 mg PO BEDTIME albuterol sulfate 90 mcg/actuation HFA aerosol inhaler 2 puff inhalation QID PRN (Reason: shortness of breath or wheezing) fluticasone propionate 50 mcg/actuation spray,suspension 1 - 2 spray INTRANASAL DAILY metformin 500 mg tablet 500 mg PO QAM Rx Instructions: With breakfast Trelegy Ellipta 100-62.5-25 mcg blister with device 1 inh INHALATION DAILY potassium chloride 8 mEq capsule, extended release 16 meq PO BID clopidogrel 75 mg tablet 75 mg PO DAILY ferrous sulfate [Feosol] 325 mg (65 mg iron) Tablet 325 mg PO QAM gabapentin 300 mg capsule 900 mg PO BID One-A-Day Women VitaCraves 200 mcg Tablet,Chewable 1 tab PO DAILY methocarbamol 750 mg tablet 750 mg PO TID PRN (Reason: back pain) Qty: 15 0RF ondansetron HCl 4 mg tablet 4 mg PO Q4H PRN (Reason: Nausea And Vomiting) cetirizine 10 mg tablet 10 mg PO DAILY bupropion HCl 300 mg tablet extended release 24 hr 300 mg PO QAM lactulose 10 gram/15 mL solution 15 ml PO QAM famotidine 40 mg tablet 40 mg PO BEDTIME docusate sodium 100 mg capsule 100 mg PO DAILY PRN (Reason: Constipation) Biktarvy 50-200-25 mg tablet 1 tab PO BEDTIME tramadol 50 mg tablet 50 - 100 mg PO Q4H PRN (Reason: Pain) Nitrostat 0.4 mg Tablet, Sublingual 0.4 mg SUBLINGUAL Q5M PRN (Reason: Chest Pain) Rx Instructions: do not exceed 3 doses per episode Janumet 50-500 mg Tablet 1 tab PO QAM Held furosemide 20 mg tablet 20 - 40 mg PO QAM Hold Instructions: Resume on 09/28/23. isosorbide mononitrate 60 mg Tablet Extended Release 24 Hr 60 mg PO QAM Hold Instructions: Resume on 10/05/23. hold until you see pmd Discontinued metoprolol succinate 100 mg tablet extended release 24 hr 100 mg PO QPM lisinopril 10 mg tablet 10 mg PO QAM celecoxib 100 mg capsule 100 mg PO BEDTIME aspirin 325 mg Tablet 325 mg PO DAILY PRN (Reason: Pain) Discharge Orders: Discharge Order (Routine); Ordered 09/26/23 Ordered By: Kvng Sahu Referrals: Alberta Archer MD [Physician] - 1 week Ayers,CECY Liu [Primary Care Provider] - 7-10 days Discharge Diet: Cardiac Discharge Activity: Resume usual activity Patient Instructions: Opioid Safety Activity Restrictions/Additional Instructions: - Please take Lasix 20 mg once daily starting on Thursday -Please follow-up with cardiology in 1 to 2 weeks -If you have any chest pain or palpitations please go to emergency room ? Please follow-up with infectious disease for your history of HIV in the next month ? Continue to hold Imdur until you see your primary care for recheck blood pressure decision when to resume based upon blood pressures Discharge Attestations Time Spent in Discharge Care*: greater than 30 min Quality Metrics Clinical Quality Measures [ No reported AMI, CVA or VTE this stay] Coding Level of Care Code 38677 Total time (in minutes) for Discharge: 45 Diagnoses Accelerated hypertension I10 Acute diastolic heart failure I50.31 Pulmonary HTN I27.20 Community acquired pneumonia J18.9 Anticoagulation adequate with anticoagulant therapy Z79.01 COPD exacerbation J44.1 Hypoxemia R09.02 Pneumonia J18.9 Laterality: right Lung location: lower lobe of lung Pneumonia type: due to unspecified organism Obstructive sleep apnea G47.33 Peripheral edema R60.9 HIV disease B20
[2023-09-26 11:18] VITALS: BP 120/75; PULSE 52; RESP 16; TEMP 37; O2SAT 93
== END 2023-09-26 11:22 | disposition home or self-care (01) | DRG 193 ==
LOC: ER 20:35 → ER IP 23:19 → ICU 09-22 05:56 → MEDSURG 09-24 17:59
PROVIDERS: Family Medicine; Admitting Provider Internal Medicine; Emergency Provider Internal Medicine; PCP Nurse Practitioner Family; Visit Provider Family Medicine
DX: J18.9 Pneumonia, unspecified organism (principal); I50.31 Acute diastolic (congestive) heart failure; I13.0 Hypertensive heart and chronic kidney disease with heart failure and stage 1 through stage 4 chronic kidney disease, or unspecified chronic kidney disease; J44.0 Chronic obstructive pulmonary disease with (acute) lower respiratory infection; J44.1 Chronic obstructive pulmonary disease with (acute) exacerbation; I48.91 Unspecified atrial fibrillation; Z79.01 Long term (current) use of anticoagulants; I25.10 Atherosclerotic heart disease of native coronary artery without angina pectoris; Z99.81 Dependence on supplemental oxygen; I27.20 Pulmonary hypertension, unspecified; F32.A Depression, unspecified; I25.2 Old myocardial infarction; G47.33 Obstructive sleep apnea (adult) (pediatric); Z99.89 Dependence on other enabling machines and devices; F17.210 Nicotine dependence, cigarettes, uncomplicated; N18.9 Chronic kidney disease, unspecified; E78.5 Hyperlipidemia, unspecified; R09.02 Hypoxemia; I16.0 Hypertensive urgency; Z21 Asymptomatic human immunodeficiency virus [HIV] infection status; Z79.899 Other long term (current) drug therapy
CPT/HCPCS: 36415; 36416; 36573; 36592; 36600; 71045; 71275; 80048; 80051; 80053; 80306; 81001; 82330; 82607; 82805; 82962; 83036; 83605; 83735; 83880; 84100; 84145; 84443; 84484; 85025; 85378; 86140; 87040; 87070; 87205; 93005; 94640; 96365; 96372; 96375; 96376; 97110; 97161; 97165; 97530; 99285; A4222; C1751; J0282; J0283; J0360; J0696; J1815; J1940; J2270; J2405; J3490; Q0144; Q9967

== ENCOUNTER → 2023-10-09 09:15 | Outpatient (BNVA) | payer MEDICARE, MEDICAID, SELFPAY | PROVIDERS: PCP Nurse Practitioner Family; Visit Provider Nurse Practitioner Family | DX: I48.91 Unspecified atrial fibrillation (principal); I25.10 Atherosclerotic heart disease of native coronary artery without angina pectoris; I50.31 Acute diastolic (congestive) heart failure; I11.0 Hypertensive heart disease with heart failure | CPT/HCPCS: 80048; 83880; 93005; 99214 ==

== ENCOUNTER → 2023-11-09 11:48 | Outpatient (BNVA) | payer MEDICARE, MEDICAID, SELFPAY | PROVIDERS: PCP Nurse Practitioner Family; Visit Provider Internal Medicine Cardiovascular Disease | DX: I25.10 Atherosclerotic heart disease of native coronary artery without angina pectoris (principal); I13.0 Hypertensive heart and chronic kidney disease with heart failure and stage 1 through stage 4 chronic kidney disease, or unspecified chronic kidney disease; I50.33 Acute on chronic diastolic (congestive) heart failure; N18.9 Chronic kidney disease, unspecified; Z87.891 Personal history of nicotine dependence; Z98.61 Coronary angioplasty status; E78.5 Hyperlipidemia, unspecified; I25.118 Atherosclerotic heart disease of native coronary artery with other forms of angina pectoris; I48.0 Paroxysmal atrial fibrillation; Z79.01 Long term (current) use of anticoagulants; I27.20 Pulmonary hypertension, unspecified; R74.01 Elevation of levels of liver transaminase levels; B20 Human immunodeficiency virus [HIV] disease; G47.33 Obstructive sleep apnea (adult) (pediatric) | CPT/HCPCS: 99215 ==

== ENCOUNTER 2024-01-07 13:37 | Emergency (ER) | payer MEDICARE, SELFPAY ==
[2024-01-07 13:40] VITALS: BP 177/98; PULSE 65; RESP 16; TEMP 36.4; O2SAT 90; BMI 37.8
--- NOTE | 2024-01-07 14:03 | XR_ITS ---
WS: [id number] Examination: XR chest 1V portable [id number] Reason for Exam: increasing SOB Date: January 07, 2024 Comparison: September 21, 2023 Findings: There is cardiomegaly. There is evidence of pulmonary venous hypertension. No large effusions are identified. There is no co nsolidative change. Impression: There is cardiomegaly with evidence of pulmonary venous hypertension.
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
[2024-01-07 14:19] VITALS: BP 150/99; PULSE 71; O2SAT 91
--- NOTE | 2024-01-07 14:43 | PC.PHAR ---
pt states she takes care of her own medications-pt states she thinks she is still taking amiodarone 200mg daily ext shows last filled 10/01/24 53d/s-pt states she has been out of her abilify 15mg qam filled 10/15/23 90d/s and sertraline 100mg qam filled 10/15/23 90d/s out for 3 days-pt states she is no longer taking diltiazem er 180mg daily ext shows last filled 10/01/23 30d/s-pt states she is no longer taking iron 325mg daily-pt states she takes gabapentin 300mg takes 3 caps (900mg) bid rx filled 300mg takes 2 caps (600mg) po tid filled 10/15/23 90d/s-pt states takes metoprolol succ er 100mg qpm ext shows last filled 12/15/23 90d/s pt states not taking metoprolol tartrate 75mg bid filled 10/01/23 30d/s-pt states she has been taking kcl 8meq bid rx filled 10/15/23 90d/s 16meq bid-notes are made in the pharmacy comments
[2024-01-07 15:00] LABS: Basophils % 0.3 %; Eosinophils # 0.1 10^3/uL (0.0-0.8); Eosinophils % 1.2 %; Hematocrit 40.9 % (36-47); Lymphocytes # 1.4 10^3/uL (0.8-4.8); Lymphocytes % 14.5 %; Mean Corpuscular HGB Conc 32.8 g/dL (30-55); Mean Corpuscular Hemoglobin 31.2 pg (27-33); Mean Corpuscular Volume 95.1 fl (85-98); Mean Platelet Volume 9.8 fL (7.4-10.4); Monocytes # 0.8 10^3/uL (0.2-0.9); Monocytes % 8.1 %; Neutrophils # 7.14 10^3/uL (1.8-7.7); Neutrophils % 75.6 %; Nucleated Red Blood Cells % 0 %; Platelet Count 230 10^3/cmm (157-399); Red Cell Distribution Width 13.5 % (12.1-15.1); White Blood Count 9.44 10^3/uL (3.29-11.43)
[2024-01-07 15:24] LABS: Anion Gap 15.3 (5-19); Blood Urea Nitrogen 19 mg/dL (8-23); Calcium 9.7 mg/dL (8.5-10.5); Carbon Dioxide 29 mmol/L (22-29); Chloride 104 mmol/L (98-107); Creatinine Clr Calc Pharmacy 57.7663; Glomerular Filtration Rate 49.7 mL/min (90-130); Glucose 181 mg/dL (65-115); NT Pro B Type Natriuretic Pept 751 pg/mL (0-125); Osmolality Calculated 305 mOsm/kg (285-295); Potassium 4.3 mmol/L (3.5-5.1); Sodium 144 mmol/L (136-145); Thyroid Stimulating Hormone 2.14 uIU/mL (0.27-4.20)
[2024-01-07 16:45] VITALS: BP 150/99; PULSE 71; RESP 16; TEMP 36.4; O2SAT 91
== END 2024-01-07 16:47 | disposition home or self-care (01) ==
PROVIDERS: Emergency Provider Nurse Practitioner; PCP Nurse Practitioner Family
DX: Z76.0 Encounter for issue of repeat prescription (principal); R20.2 Paresthesia of skin; G89.29 Other chronic pain; M54.9 Dorsalgia, unspecified; Z79.01 Long term (current) use of anticoagulants; Z79.84 Long term (current) use of oral hypoglycemic drugs; Z79.02 Long term (current) use of antithrombotics/antiplatelets; Z87.891 Personal history of nicotine dependence; I25.2 Old myocardial infarction; I13.0 Hypertensive heart and chronic kidney disease with heart failure and stage 1 through stage 4 chronic kidney disease, or unspecified chronic kidney disease; N18.9 Chronic kidney disease, unspecified; I50.9 Heart failure, unspecified; E78.5 Hyperlipidemia, unspecified; I25.10 Atherosclerotic heart disease of native coronary artery without angina pectoris
CPT/HCPCS: 36415; 71045; 80048; 83880; 84443; 85025; 99284

== ENCOUNTER 2024-08-12 12:36 | Emergency (ER) | payer MEDICARE, SELFPAY ==
[2024-08-12 12:45] VITALS: BP 148/78; PULSE 65; RESP 18; TEMP 36.7; O2SAT 92; BMI 33.5
--- NOTE | 2024-08-12 13:00 | ECG_ITS ---
[facility] Test Date: 2024-08-12 Pat Name: Katie Andrews Department: Room: Gender: Female Wall Steamer: : 1955 Requested By: Jeffy Dhaliwal Order Number: [id number] Dunia MD: Caroline Marin M.D. Measurements Intervals [place] Rate: 71 P: 68 ME: 156 QRS: 25 QRSD: 77 T: 42 QT: 392 QTc: 426 Interpretive Statements SINUS RHYTHM WITH OCCASIONAL SUPRAVENTRICULAR PREMATURE COMPLEXES ANTEROSEPTAL MYOCARDIAL INFARCTION , LIKELY OLD Myocardial infarct finding now present Sinus bradycardia no longer present Electronically Signed On 08-12-2024 18:01:50 FLOOR COVERER by Caroline Marin M.D. [email or web address]
--- NOTE | 2024-08-12 15:37 | CTR_ITS ---
PROCEDURE INFORMATION: Exam: CT Head Without Contrast Exam date and time: 08/12/2024 4:24 PM Age: 68 years old Clinical indication: Dizziness; Additional info: Headache, told i had a brain tumor TECHNIQUE: Imaging protocol: Computed tomography of the head without contrast. Radiation optimization: All CT scans at this facility use at least one of these dose optimization techniques: automated exposure control; mA and/or kV adjustment per patient size (includes targeted exams where dose is matched to clinical indication); or iterative reconstruction. COMPARISON: CT head wo con* [id number] 12/25/2022 4:51 PM RADIATION DOSE METRICS: Total DLP (mGy-cm): 1111.88 FINDINGS: Brain: No acute intracranial hemorrhage, mass effect or midline shift. White matter hypodensities most likely from mild chronic microangiopathy. Cerebral ventricles: Mild ex vacuo expansion of the ventricles due to volume loss. Paranasal sinuses: Visualized sinuses are unremarkable. No fluid levels. Mastoid air cells: Visualized mastoid air cells are well aerated. Bones: No acute bony findings. Soft tissues: Unremarkable. CT/CT head wo con* [id number] IMPRESSION: No acute intracranial findings.
--- NOTE | 2024-08-12 15:37 | XRR_ITS ---
PROCEDURE INFORMATION: Exam: XR Chest Exam date and time: 08/12/2024 3:40 PM Age: 68 years old Clinical indication: Pain; Angina pectoris; Additional info: Chest pain TECHNIQUE: Imaging protocol: Radiologic exam of the chest. Views: 1 view. COMPARISON: CR XR chest 1V portable [id number] 01/07/2024 1:32 PM FINDINGS: Lungs: Diffuse increased bilateral interstitial thickening and patchy bilateral lower lobe airspace opacities. Pleural spaces: Possible small bilateral pleural effusion. No pneumothorax. Heart/Mediastinum: Cardiomegaly. Bones/joints: No acute findings. XR/XR chest 1V portable [id number] IMPRESSION: Findings suggest sequelae of pulmonary edema or infection.
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
[2024-08-12 16:00] VITALS: BP 137/93; PULSE 64; RESP 16; O2SAT 94
[2024-08-12 16:12] LABS: Basophils % 0.4 %; Eosinophils # 0.2 10^3/uL (0.0-0.8); Eosinophils % 2.5 %; Hematocrit 37.8 % (36-47); Lymphocytes # 1.8 10^3/uL (0.8-4.8); Lymphocytes % 21.8 %; Mean Corpuscular HGB Conc 33.6 g/dL (30-55); Mean Corpuscular Hemoglobin 31.4 pg (27-33); Mean Corpuscular Volume 93.6 fl (85-98); Mean Platelet Volume 9.5 fL (7.4-10.4); Monocytes # 0.7 10^3/uL (0.2-0.9); Monocytes % 7.8 %; Neutrophils # 5.66 10^3/uL (1.8-7.7); Nucleated Red Blood Cells % 0 %; Platelet Count 267 10^3/cmm (157-399); Red Blood Count 4.04 10^6/uL (3.85-5.65); Red Cell Distribution Width 13.3 % (12.1-15.1); White Blood Count 8.44 10^3/uL (3.29-11.43)
[2024-08-12 16:29] LABS: Troponin(5th) Baseline 9 ng/L (0-10)
[2024-08-12 16:33] LABS: Alanine Aminotransferase 11 U/L (0-33); Albumin Level 4.5 g/dL (3.5-5.2); Alkaline Phosphatase 108 U/L (35-105); Anion Gap 16.1 (5-19); Aspartate Amino Transferase 15 U/L (0-32); Blood Urea Nitrogen 14 mg/dL (8-23); Carbon Dioxide 26 mmol/L (22-29); Chloride 102 mmol/L (98-107); Creatinine Clr Calc Pharmacy 54.8844; Globulin 2.3 g/dL (1.3-4.6); Glomerular Filtration Rate 49.7 mL/min (90-130); Glucose 92 mg/dL (65-115); Osmolality Calculated 290 mOsm/kg (285-295); Potassium 4.1 mmol/L (3.5-5.1); Sodium 140 mmol/L (136-145); Total Bilirubin 0.2 mg/dL (0.15-1.2); Total Protein 6.8 g/dL (6.6-8.7)
[2024-08-12 17:15] LABS: NT Pro B Type Natriuretic Pept 669 pg/mL (0-125)
[2024-08-12] MEDS: morphine 4 mg/mL SDV 1 mL IM (17:55)
[2024-08-12 18:06] VITALS: BP 144/84; PULSE 67; RESP 16; O2SAT 95
== END 2024-08-12 18:03 | disposition home or self-care (01) ==
PROVIDERS: Emergency Provider Physician Assistant; PCP Nurse Practitioner Family
DX: M79.602 Pain in left arm (principal); M79.601 Pain in right arm; M54.2 Cervicalgia; Z79.01 Long term (current) use of anticoagulants; Z79.84 Long term (current) use of oral hypoglycemic drugs; Z79.02 Long term (current) use of antithrombotics/antiplatelets; Z87.891 Personal history of nicotine dependence; I13.0 Hypertensive heart and chronic kidney disease with heart failure and stage 1 through stage 4 chronic kidney disease, or unspecified chronic kidney disease; N18.9 Chronic kidney disease, unspecified; I50.30 Unspecified diastolic (congestive) heart failure; I25.2 Old myocardial infarction; I25.10 Atherosclerotic heart disease of native coronary artery without angina pectoris; J44.9 Chronic obstructive pulmonary disease, unspecified
CPT/HCPCS: 36415; 70450; 71045; 80053; 83880; 84484; 85025; 93005; 96372; 99285; J2270

== ENCOUNTER 2024-09-23 15:49 | Emergency (ER) | payer MEDICARE, SELFPAY ==
[2024-09-23 15:59] VITALS: BP 131/86; PULSE 66; RESP 16; TEMP 36.9; O2SAT 93; BMI 34.1
--- NOTE | 2024-09-23 16:04 | XRR_ITS ---
PROCEDURE INFORMATION: Exam: XR Chest Exam date and time: 09/23/2024 4:15 PM Age: 68 years old Clinical indication: Cough and dyspnea; Patient HX: HTN; Chest tightness; Cough TECHNIQUE: Imaging protocol: Radiologic exam of the chest. Views: 1 view. COMPARISON: CR XR chest 1V portable [id number] 08/12/2024 3:40 PM FINDINGS: Lungs: Unremarkable. No consolidation. Pleural spaces: Unremarkable. No pleural effusion. No pneumothorax. Heart/Mediastinum: Unremarkable. No cardiomegaly. Bones/joints: Unremarkable. XR/XR chest 1V portable [id number] IMPRESSION: No acute findings.
--- NOTE | 2024-09-23 16:05 | ECG_ITS ---
[employer] Test Date: 2024-09-23 Pat Name: Katie Andrews Department: Room: Gender: Female Drug Room Clerk: : 1955 Requested By: Jeffy Dhaliwal Order Number: [id number] Dunia MD: Alberta Archer M.D. Measurements Intervals [place] Rate: 70 P: 71 DE: 161 QRS: 4 QRSD: 80 T: 43 QT: 398 QTc: 431 Interpretive Statements SINUS RHYTHM WITH OCCASIONAL SUPRAVENTRICULAR PREMATURE COMPLEXES ANTEROSEPTAL MYOCARDIAL INFARCTION , PROBABLY OLD [40+ ms Q WAVE IN V1-V4] INTERPRETATION BASED ON A DEFAULT AGE OF 40 YEARS Compared to ECG 08/12/2024 13:00:35 Sinus bradycardia no longer present Myocardial infarct finding still present Electronically Signed On 09-23-2024 19:52:04 SHOE STAMPER by Alberta Archer M.D. [email or web address]
[2024-09-23 17:14] LABS: Basophils # 0.1 10^3/uL (0.0-0.1); Basophils % 0.6 %; Eosinophils # 0.2 10^3/uL (0.0-0.8); Eosinophils % 2.1 %; Lymphocytes # 2.5 10^3/uL (0.8-4.8); Lymphocytes % 24.6 %; Mean Corpuscular HGB Conc 32.4 g/dL (30-55); Mean Corpuscular Hemoglobin 30.2 pg (27-33); Mean Corpuscular Volume 93.2 fl (85-98); Mean Platelet Volume 9.7 fL (7.4-10.4); Monocytes % 10.1 %; Neutrophils # 6.32 10^3/uL (1.8-7.7); Neutrophils % 62.4 %; Nucleated Red Blood Cells % 0 %; Platelet Count 292 10^3/cmm (157-399); White Blood Count 10.12 10^3/uL (3.29-11.43)
[2024-09-23 17:34] LABS: Troponin(5th) Baseline 13 ng/L (0-10)
[2024-09-23 18:01] LABS: Alanine Aminotransferase 13 U/L (0-33); Albumin Level 4.6 g/dL (3.5-5.2); Alkaline Phosphatase 118 U/L (35-105); Aspartate Amino Transferase 16 U/L (0-32); Blood Urea Nitrogen 22 mg/dL (8-23); Calcium 10.1 mg/dL (8.5-10.5); Carbon Dioxide 28 mmol/L (22-29); Chloride 99 mmol/L (98-107); Creatinine Clr Calc Pharmacy 50.1788; Globulin 2.9 g/dL (1.3-4.6); Glomerular Filtration Rate 44.9 mL/min (90-130); Glucose 101 mg/dL (65-115); Osmolality Calculated 289 mOsm/kg (285-295); Sodium 138 mmol/L (136-145); Total Bilirubin 0.3 mg/dL (0.15-1.2); Total Protein 7.5 g/dL (6.6-8.7)
--- NOTE | 2024-09-23 18:05 | ECG_ITS ---
[facility] Date: 2024-09[facility]23 Pat Name: Katie Andrews Department: Room: Gender: Female Research Hydrologist: : 1955 Requested By: Jeffy Dhaliwal Order Number: [id number] Dunia MD: Alberta Archer M.D. Measurements Intervals [place] Rate: 64 P: 0 MD: 0 QRS: 17 QRSD: 89 T: 68 QT: 431 QTc: 447 Interpretive Statements Normal sinus rhythm with rare Supraventricular ectopics SEPTAL MYOCARDIAL INFARCTION , PROBABLY OLD [40+ ms Q WAVE IN V1/V2] Compared to ECG 09/23/2024 15:54:26 Sinus rhythm no longer present Myocardial infarct finding still present Electronically Signed On 09-23-2024 19:57:24 SQUEEGEE TENDER by Alberta Archer M.D. [email or web address]
[2024-09-23 18:11] LABS: Anion Gap 15.2 (5-19); Potassium 4.2 mmol/L (3.5-5.1)
[2024-09-23 18:50] VITALS: BP 115/75; PULSE 61; O2SAT 96
[2024-09-23 19:05] VITALS: BP 146/87; PULSE 64; RESP 17; O2SAT 91
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
--- NOTE | 2024-09-23 19:17 | CTR_ITS ---
PROCEDURE INFORMATION: Exam: CTA Chest With Contrast Exam date and time: 09/23/2024 9:24 PM Age: 68 years old Clinical indication: Shortness of breath; Prior surgery; Surgery date: 6+ months; Surgery type: Lung lobectomy; Patient HX: SOB with hypoxia. History of throat cancer. TECHNIQUE: Imaging protocol: Computed tomographic angiography of the chest with contrast. Exam focused on the arteries. 3D rendering (Not supervised by radiologist): MIP and/or 3D reconstructed images were created by the technologist. Radiation optimization: All CT scans at this facility use at least one of these dose optimization techniques: automated exposure control; mA and/or kV adjustment per patient size (includes targeted exams where dose is matched to clinical indication); or iterative reconstruction. Contrast material: OMNI 350; Contrast volume: 65 ml; Contrast route: INTRAVENOUS (IV); COMPARISON: CT angio chest PE protcl [id number] 09/21/2023 9:38 PM RADIATION DOSE METRICS: Total DLP (mGy-cm): 635.84 FINDINGS: Pulmonary arteries: Evaluation for pulmonary thromboembolism is limited beyond the segmental level due to respiratory motion. No evidence of PE. Aorta: No evidence of aneurysmal dilatation or dissection of the thoracic aorta. Thyroid: Grossly unremarkable. Lungs: No focal consolidation. There is subsegmental atelectasis and mosaic attenuation in both lungs secondary to the expiratory phase of respiration. Pleural spaces: No evidence of pleural effusion. No pneumothorax. Heart: No cardiomegaly. No pericardial effusion. Mediastinal space: No evidence of mediastinal mass, fluid collection or hematoma. Lymph nodes: No mediastinal or hilar adenopathy. Bones/joints: No evidence of acute fracture or aggressive osseous lesion. Moderate multilevel degenerative changes of the thoracic spine. Soft tissues: No evidence of fluid collection or hematoma in the superficial soft tissues. Other findings: No evidence of acute abnormality in the upper abdomen. CT/CT angio chest PE protcl [id number] IMPRESSION: 1. No evidence of PE or acute aortic abnormality.
[2024-09-23 19:25] LABS: Troponin 5 2HR 13.18 ng/L (0-10); Troponin 5 2HR Delta 0.18 ABS# (0-10)
[2024-09-23] MEDS: iohexol 350 mg/mL 500 mL Btl (per mL) IV (21:24)
[2024-09-23 23:14] VITALS: BP 134/89; PULSE 68; O2SAT 93
[2024-09-23 23:42] LABS: Troponin 5 6HR 11.98 ng/L (0-10)
[2024-09-23 23:43] LABS: Troponin 5 6HR Delta -1.02 ng/L (0-12)
--- NOTE | 2024-09-26 09:28 | DCPLANNER ---
faxed outpatient lexiscan to scheduling for er f/u
== END 2024-09-23 23:15 | disposition home or self-care (01) ==
PROVIDERS: Emergency Provider Family Medicine; PCP Nurse Practitioner Family
DX: R07.89 Other chest pain (principal); Z79.01 Long term (current) use of anticoagulants; Z79.02 Long term (current) use of antithrombotics/antiplatelets; Z87.891 Personal history of nicotine dependence; J44.9 Chronic obstructive pulmonary disease, unspecified; I25.10 Atherosclerotic heart disease of native coronary artery without angina pectoris; I25.2 Old myocardial infarction; I13.0 Hypertensive heart and chronic kidney disease with heart failure and stage 1 through stage 4 chronic kidney disease, or unspecified chronic kidney disease; N18.9 Chronic kidney disease, unspecified; I50.30 Unspecified diastolic (congestive) heart failure; E78.5 Hyperlipidemia, unspecified
CPT/HCPCS: 36415; 71045; 71275; 80053; 84484; 85025; 93005; 99285

== ENCOUNTER 2024-10-22 08:27 | Emergency (ER) | payer MEDICARE, SELFPAY ==
[2024-10-22 08:29] VITALS: BP 176/76; PULSE 64; RESP 17; TEMP 36.7; O2SAT 95; BMI 33.3
--- NOTE | 2024-10-22 08:41 | ECG_ITS ---
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
[2024-10-22 09:12] LABS: Basophils # 0.1 10^3/uL (0.0-0.1); Basophils % 0.6 %; Eosinophils # 0.2 10^3/uL (0.0-0.8); Eosinophils % 2.1 %; Hematocrit 41.6 % (36-47); Lymphocytes # 1.6 10^3/uL (0.8-4.8); Mean Corpuscular Hemoglobin 30.1 pg (27-33); Mean Corpuscular Volume 94.1 fl (85-98); Mean Platelet Volume 9.5 fL (7.4-10.4); Monocytes # 0.7 10^3/uL (0.2-0.9); Neutrophils # 6.17 10^3/uL (1.8-7.7); Neutrophils % 70.4 %; Nucleated Red Blood Cells % 0 %; Platelet Count 299 10^3/cmm (157-399); Red Blood Count 4.42 10^6/uL (3.85-5.65); White Blood Count 8.76 10^3/uL (3.29-11.43)
--- NOTE | 2024-10-22 09:14 | PC.PHAR ---
removed conort 50-500 clopidogrel, amiodarone 200 as patient says she don't take and hadn't been filled on external med list for a year
[2024-10-22 09:16] VITALS: RESP 18; O2SAT 95
[2024-10-22] MEDS: orphenadrine 30 mg/mL Inj 2 mL 60 MG IVP (09:16)
[2024-10-22] MEDS: ondansetron 2 mg/ML SDV 2 mL 4 MG IVP (09:16)
[2024-10-22] MEDS: dexamethasone 10 mg/mL INJ IVP (09:16)
[2024-10-22] MEDS: morphine 4 mg/mL SDV 1 mL IVP (09:16)
[2024-10-22] MEDS: ketorolac 30 mg/mL INJ IVP (09:16)
[2024-10-22 09:28] LABS: Bilirubin Urine Negative (Negative); Blood Urine Negative (Negative); Glucose Urine UA Negative (Normal); Ketones Urine Negative (Negative); Leukocyte Esterase Urine Negative (Negative); Nitrate Urine Negative (Negative); Protein Urine Negative (Negative); Specific Gravity, Urine 1.013 (1.005-1.030); Urine Appearance Clear (CLEAR); Urine Color Yellow (Yellow); Urobilinogen Urine 0.2 mg/dL (Negative)
[2024-10-22 09:33] LABS: Add Urine Microscopic? YES; Bacteria Urine None Seen /hpf; Hyaline Casts Urine 0-4 /lpf; RBC Urine 0-2 /hpf (0-2); Squamous Epithelial Cell Urine 0-5 /hpf (0-5); WBC Urine 0-5 /hpf (0-5)
[2024-10-22 09:33] LABS: Alanine Aminotransferase 18 U/L (0-33); Albumin Level 4.5 g/dL (3.5-5.2); Alkaline Phosphatase 118 U/L (35-105); Anion Gap 14.9 (5-19); Aspartate Amino Transferase 15 U/L (0-32); Blood Urea Nitrogen 16 mg/dL (8-23); Calcium 9.8 mg/dL (8.5-10.5); Carbon Dioxide 27 mmol/L (22-29); Chloride 106 mmol/L (98-107); Glomerular Filtration Rate 55.5 mL/min (90-130); Glucose 118 mg/dL (65-115); Osmolality Calculated 298 mOsm/kg (285-295); Potassium 4.9 mmol/L (3.5-5.1); Sodium 143 mmol/L (136-145); Total Bilirubin 0.2 mg/dL (0.15-1.2); Total Protein 7.5 g/dL (6.6-8.7)
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
[2024-10-22 10:39] VITALS: BP 128/79; PULSE 87; O2SAT 95
== END 2024-10-22 10:48 | disposition home or self-care (01) ==
PROVIDERS: Emergency Provider Family Medicine; PCP Nurse Practitioner Family
DX: S39.012A Strain of muscle, fascia and tendon of lower back, initial encounter (principal); Z79.01 Long term (current) use of anticoagulants; Z79.84 Long term (current) use of oral hypoglycemic drugs; Z79.82 Long term (current) use of aspirin; Z87.891 Personal history of nicotine dependence; J44.9 Chronic obstructive pulmonary disease, unspecified; I25.10 Atherosclerotic heart disease of native coronary artery without angina pectoris; I13.0 Hypertensive heart and chronic kidney disease with heart failure and stage 1 through stage 4 chronic kidney disease, or unspecified chronic kidney disease; N18.9 Chronic kidney disease, unspecified; I50.30 Unspecified diastolic (congestive) heart failure; X58.XXXA Exposure to other specified factors, initial encounter
CPT/HCPCS: 36415; 80053; 81001; 85025; 93005; 96374; 96375; 99284; J1100; J1885; J2270; J2360; J2405

== ENCOUNTER 2025-02-27 15:45 | Inpatient (IN) | payer OTHER, MEDICARE, SELFPAY ==
[2025-02-27] VITALS (38 sets, daily range): BP systolic 104–168; BP diastolic 58–111; PULSE 64–87; RESP 14–32; TEMP 36.2–36.5; O2SAT 92–100; BMI 40.3
--- NOTE | 2025-02-27 15:52 | ECG_ITS ---
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1955 Requested By: Destiny Bush Order Number: [id number] Reading MD: ROMY FERRO Measurements Intervals [place] Rate: 66 P: 83 [place]: 212 QRS: 111 QRSD: 106 T: 69 QT: 412 QTc: 433 Interpretive Statements SINUS RHYTHM WITH MARKED SINUS ARRHYTHMIA WITH FIRST DEGREE AV BLOCK LOW QRS VOLTAGE IN PRECORDIAL LEADS [QRS DEFLECTION < 1.0 mV IN CHEST LEADS] LEFT POSTERIOR FASCICULAR BLOCK [QRS AXIS > 109, INFERIOR Q] ANTEROSEPTAL MYOCARDIAL INFARCTION , PROBABLY OLD [40+ ms Q WAVE IN V1-V4] Compared to ECG 10/22/2024 09:08:44 First degree AV block now present Low QRS voltage now present Left posterior fascicular block now present Myocardial infarct finding still present Electronically Signed On 02-27-2025 19:02:27 CDT by ROMY FERRO [email or web address]
--- NOTE | 2025-02-27 15:52 | XRR_ITS ---
PROCEDURE INFORMATION: Exam: XR Chest Exam date and time: 02/27/2025 4:47 PM Age: 69 years old Clinical indication: Shortness of breath; Prior surgery; Surgery date: 6+ months; Surgery type: Lobectomy; Additional info: SOB TECHNIQUE: Imaging protocol: Radiologic exam of the chest. Views: 1 view. COMPARISON: CT angio chest PE protcl [id number] 09/23/2024 9:24 PM FINDINGS: Lungs: Mild central pulmonary vasculature congestive changes. No lobar consolidation. Pleural spaces: Unremarkable. No pleural effusion. No pneumothorax. Heart/Mediastinum: Widened upper mediastinum which may be related to tortuous thoracic aorta versus mediastinal lymphadenopathy. Consider follow up with CT chest examination. Mild cardiomegaly. Bones/joints: Unremarkable. XR/XR chest 1V portable [id number] IMPRESSION: As above.
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
[2025-02-27] MEDS: albuterol 2.5 mg/3 mL Neb INHALATION (16:15)
[2025-02-27 16:20] LABS: ABG PCO2 52.6 mmHg (35-45); ABG PH Result 7.26 (7.35-7.45); Arterial Blood Gas Hematocrit 43.5 % (37-47); Base Excess ABG -4.3 mmol/L (-2.0-2.0); Blood Gas Allen Test Pos; Blood Gas Operator Identificat CAK; Blood Gas Sample Site Radial, right; Blood Gas Sample Type Arterial; Carboxyhemoglobin 3.5 %THgb (0.4-20.1); HCO3 ABG 23.5 mmol/L (22-26); HGB O2 Sat 90.9 % (95-100); Oxygen Device NC; PO2 ABG 80.7 mmHg (80.0-100.0); PO2 FiO2 Ratio Arterial Blood 252; Total Hemoglobin 14.2 g/dL (12-16)
[2025-02-27 16:54] LABS: Basophils % 0.2 %; Hematocrit 45.9 % (36-47); Lymphocytes # 0.9 10^3/uL (0.8-4.8); Lymphocytes % 7.1 %; Mean Corpuscular HGB Conc 29.6 g/dL (30-55); Mean Corpuscular Hemoglobin 28.4 pg (27-33); Mean Corpuscular Volume 95.8 fl (85-98); Mean Platelet Volume 9.6 fL (7.4-10.4); Monocytes # 1.3 10^3/uL (0.2-0.9); Monocytes % 10.5 %; Neutrophils # 10.12 10^3/uL (1.8-7.7); Neutrophils % 81.7 %; Nucleated Red Blood Cells % 0 %; Platelet Count 285 10^3/cmm (157-399); Red Blood Count 4.79 10^6/uL (3.85-5.65); Red Cell Distribution Width 16.4 % (12.1-15.1); White Blood Count 12.38 10^3/uL (3.29-11.43)
[2025-02-27] MEDS: methylPREDNISolone sod succ 125 mg/2 mL INJ IV (16:57)
[2025-02-27 17:06] LABS: INR 1.65 (0.8-1.2)
[2025-02-27 17:13] LABS: Troponin(5th) Baseline 22 ng/L (0-10)
[2025-02-27 17:20] LABS: Alanine Aminotransferase 24 U/L (0-33); Albumin Level 4.2 g/dL (3.5-5.2); Alkaline Phosphatase 316 U/L (35-105); Anion Gap 20.8 (5-19); Aspartate Amino Transferase 35 U/L (0-32); Blood Urea Nitrogen 32 mg/dL (8-23); Calcium 9.2 mg/dL (8.5-10.5); Carbon Dioxide 22 mmol/L (22-29); Chloride 100 mmol/L (98-107); Globulin 2.7 g/dL (1.3-4.6); Glomerular Filtration Rate 26.4 mL/min (90-130); Glucose 113 mg/dL (65-115); NT Pro B Type Natriuretic Pept 2235 pg/mL (0-125); Osmolality Calculated 288 mOsm/kg (285-295); Sodium 135 mmol/L (136-145); Total Bilirubin 0.7 mg/dL (0.15-1.2); Total Protein 6.9 g/dL (6.6-8.7)
[2025-02-27 17:29] LABS: Potassium 7.8 mmol/L (3.5-5.1)
[2025-02-27] MEDS: calcium gluconate 0.1 gm/mL 10% SDV 10mL 1 GM IVP (17:41)
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
[2025-02-27] MEDS: dextrose 10% 250 ML 1000 ML IV (18:00)
[2025-02-27 18:04] LABS: Glucose Point of Care 125 mg/dL (70-110)
[2025-02-27] MEDS: insulin regular-human 100 units/1 mL 10 UNIT IVP (18:06)
--- NOTE | 2025-02-27 18:06 | ECG_ITS ---
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1955 Requested By: Destiny Bush Order Number: [id number] Reading MD: ROMY FERRO Measurements Intervals [place] Rate: 74 P: 77 PA: 203 QRS: 98 QRSD: 102 T: 74 QT: 391 QTc: 436 Interpretive Statements SINUS RHYTHM BORDERLINE RIGHT AXIS DEVIATION [QRS AXIS > 90] LOW QRS VOLTAGE IN PRECORDIAL LEADS [QRS DEFLECTION < 1.0 mV IN CHEST LEADS] ANTEROSEPTAL MYOCARDIAL INFARCTION , PROBABLY OLD [40+ ms Q WAVE IN V1-V4] Compared to ECG 02/27/2025 15:58:18 Sinus arrhythmia no longer present First degree AV block no longer present Left posterior fascicular block no longer present Myocardial infarct finding still present Electronically Signed On 02-27-2025 19:07:05 CDT by ROMY FERRO [email or web address]
--- NOTE | 2025-02-27 18:35 | PC.NURSE ---
Patient arrived to ICU 1818.
[2025-02-27] MEDS: gabapentin 300 mg Capsule 900 MG PO (19:13)
[2025-02-27] MEDS: apixaban 5 mg Tablet PO (19:14)
[2025-02-27] MEDS: sodium polystyrene sulfonate 15 gm/60 mL Btl PO ×2 (19:15→22:12)
[2025-02-27] MEDS: FUROsemide 10 mg/mL SDV 4mL 40 MG IVP (19:16)
[2025-02-27] MEDS: ipratropium-albuterol 3 mL Neb INHALATION (20:03)
[2025-02-27] MEDS: budesonide 0.5 mg/2 mL Neb INHALATION (20:03)
[2025-02-27 20:46] LABS: Troponin 5 2HR 17.38 ng/L (0-10)
[2025-02-27 20:47] LABS: Troponin 5 2HR Delta -4.62 ABS# (0-10)
[2025-02-27 20:59] LABS: Anion Gap 17.1 (5-19); Blood Urea Nitrogen 32 mg/dL (8-23); Calcium 9.4 mg/dL (8.5-10.5); Carbon Dioxide 24 mmol/L (22-29); Chloride 99 mmol/L (98-107); Creatinine Clr Calc Pharmacy 38.2338; Glucose 159 mg/dL (65-115); Osmolality Calculated 286 mOsm/kg (285-295); Sodium 133 mmol/L (136-145)
[2025-02-27 21:02] LABS: Potassium 7.1 mmol/L (3.5-5.1)
--- NOTE | 2025-02-27 21:36 | PC.NURSE ---
Addendum entered by Christiana Corona RN 02/28/25 04:25: [address] amado if metoprolol doesnt work, switch to amiodorone Addendum entered by Christiana Corona RN 02/28/25 04:08: 0408 Patient in rvr rate 124, Reported to dr. amado. Metoprolol iv added Addendum entered by Christiana Corona RN 02/28/25 02:01: 0200 Patient still in afib rn. RN reported to DR. Amado. Diltiazem drip added to keep HR <90 and sbp >100 Addendum entered by Christiana Corona RN 02/28/25 00:08: 0008 Patient converted to AFIB RVR, RN Christiana corona spoke with dr. amado. Order obtained verbally Addendum entered by Christiana Corona RN 02/27/25 22:02: [address] amado for order clarification. ordered 40 of lasix. Rn gave 40 of lasix at 1915. Per MD do not give more lasix at this time Original Note: 2135 RN christiana Corona reported potassium of 7.1. Patient already recieved insulin. calcium gluconate, and kayexalate. Potassium down from 7.8. Per DR. lou MD will look into chart and place orders. No new orders given at this time
[2025-02-27] MEDS: sodium chloride 0.9% 1,000 ML 999 ML IV (22:16)
--- NOTE | 2025-02-27 23:36 | ECG_ITS ---
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
[2025-02-27] MEDS: methylPREDNISolone sod succ 40 mg/mL INJ IVP (23:53)
[2025-02-27 23:56] LABS: Troponin 5 6HR 14.98 ng/L (0-10)
[2025-02-27 23:58] LABS: Troponin 5 6HR Delta -7.02 ng/L (0-12)
[2025-02-28] VITALS (80 sets, daily range): BP systolic 121–170; BP diastolic 65–130; PULSE 87–132; RESP 13–29; TEMP 36.4–36.9; O2SAT 88–98
[2025-02-28] MEDS: dilTIAZem 5 mg/mL SDV 5 mL 15 MG IVP (00:15)
[2025-02-28 01:38] LABS: Anion Gap 15.7 (5-19); Blood Urea Nitrogen 27 mg/dL (8-23); Calcium 8.9 mg/dL (8.5-10.5); Carbon Dioxide 25 mmol/L (22-29); Chloride 102 mmol/L (98-107); Creatinine Clr Calc Pharmacy 46.4267; Glomerular Filtration Rate 37.5 mL/min (90-130); Glucose 151 mg/dL (65-115); Osmolality Calculated 294 mOsm/kg (285-295); Potassium 4.7 mmol/L (3.5-5.1); Sodium 138 mmol/L (136-145)
[2025-02-28] MEDS: ipratropium-albuterol 3 mL Neb INHALATION ×4 (01:58→19:44)
[2025-02-28] MEDS: sodium polystyrene sulfonate 15 gm/60 mL Btl PO (02:36)
[2025-02-28] MEDS: dilTIAZem 100 MG in sodium chloride 0.9% (add-van) 100 ML IV (02:37)
[2025-02-28 03:33] LABS: Basophils % 0.1 %; Hematocrit 42.4 % (36-47); Lymphocytes # 0.4 10^3/uL (0.8-4.8); Mean Corpuscular HGB Conc 30.4 g/dL (30-55); Mean Corpuscular Hemoglobin 28.5 pg (27-33); Mean Corpuscular Volume 93.6 fl (85-98); Mean Platelet Volume 9.6 fL (7.4-10.4); Monocytes # 0.3 10^3/uL (0.2-0.9); Monocytes % 4.3 %; Neutrophils # 5.94 10^3/uL (1.8-7.7); Nucleated Red Blood Cells % 0 %; Platelet Count 222 10^3/cmm (157-399); Red Blood Count 4.53 10^6/uL (3.85-5.65); Red Cell Distribution Width 16.4 % (12.1-15.1); White Blood Count 6.68 10^3/uL (3.29-11.43)
[2025-02-28 03:57] LABS: Alanine Aminotransferase 19 U/L (0-33); Albumin Level 3.5 g/dL (3.5-5.2); Alkaline Phosphatase 273 U/L (35-105); Anion Gap 15.4 (5-19); Aspartate Amino Transferase 25 U/L (0-32); Blood Urea Nitrogen 26 mg/dL (8-23); Calcium 8.9 mg/dL (8.5-10.5); Carbon Dioxide 25 mmol/L (22-29); Chloride 101 mmol/L (98-107); Creatinine Clr Calc Pharmacy 46.4267; Globulin 2.9 g/dL (1.3-4.6); Glomerular Filtration Rate 37.5 mL/min (90-130); Glucose 151 mg/dL (65-115); Magnesium 1.9 mg/dL (1.7-2.3); Osmolality Calculated 292 mOsm/kg (285-295); Potassium 4.4 mmol/L (3.5-5.1); Sodium 137 mmol/L (136-145); Total Bilirubin 0.7 mg/dL (0.15-1.2); Total Protein 6.4 g/dL (6.6-8.7)
[2025-02-28] MEDS: metoprolol tartrate 1 mg/1 mL SDV 5 mL 10 MG IVP (04:18)
[2025-02-28] MEDS: amiodarone 150 MG/100 ML PREMIX 400 MG IV (05:29)
[2025-02-28] MEDS: sertraline 100 mg Tablet PO (05:31)
[2025-02-28] MEDS: atorvastatin 40 mg Tablet 80 MG PO (05:31)
[2025-02-28] MEDS: aspirin 81 mg EC Tablet PO (08:53)
[2025-02-28] MEDS: methylPREDNISolone sod succ 40 mg/mL INJ IVP ×3 (08:53→23:42)
[2025-02-28] MEDS: lactulose oral liq 20 gm/30 mL UDC 10 GM PO (08:53)
[2025-02-28] MEDS: gabapentin 300 mg Capsule 900 MG PO ×2 (08:53→17:11)
[2025-02-28] MEDS: apixaban 5 mg Tablet PO ×2 (08:54→17:11)
[2025-02-28] MEDS: pantoprazole DR 40 mg Tablet PO (08:54)
[2025-02-28] MEDS: metoprolol succinate ER (24 HR) 100 mg Tablet PO (08:54)
[2025-02-28] MEDS: nicotine 21 mg Patch 1 PATCH TRANSDERMA (08:54)
[2025-02-28] MEDS: FUROsemide 40 mg Tablet PO ×2 (09:00→17:11)
[2025-02-28] MEDS: budesonide 0.5 mg/2 mL Neb INHALATION ×2 (09:18→19:44)
--- NOTE | 2025-02-28 10:35 | P.PN_ITS ---
Subjective 2 Subjective: Patient developed A-fib with RVR overnight following which she was started on amiodarone infusion this morning after there was no response to pushes of 50 mg IV of Cardizem, 10 mg IV metoprolol. She will BiPAP overnight. States that she remains on BiPAP at nighttime at home as well. Medications: Reviewed: Yes Vitals/I&O/Wt Last Vital Signs Temp 98.5 F 02/28/25 08:45 Pulse 117 H 02/28/25 09:19 Resp 18 02/28/25 09:19 BP 154/92 02/28/25 08:45 Pulse Ox 94 02/28/25 09:19 O2 Del Method Nasal Cannula 02/28/25 09:19 O2 Flow Rate 2 02/28/25 09:19 FiO2 35 02/28/25 04:19 02/27/25 02/28/25 02/28/25 22:59 06:59 14:59 Intake Total 250 / 250 1135.541 / 1385.541 360 / 360 Output Total 3900 / 3900 Balance 250 / 250 -2764.459 / -2514.459 360 / 360 Weight last 48 hrs Weight 105.9 kg Weight 106.5 kg Weight 102.512 kg Physical Exam 2 Narrative: General: No acute distress, AO x3 HEENT: PERRLA, pupils bilaterally equal and reactive, pallors not present Chest: Diffuse wheezing to auscultation bilaterally all areas CVS: S1-S2 regular, no murmurs, no tachycardia, no gallops, no rubs Abdomen: Soft, nontender, no organomegaly, bowel sounds present Neuro: No focal deficits, no facial deformity, AO x3, power 5/5 in all limbs Extremities: Mild lower extremity pitting edema Urinary Catheter Management: Moy: Cath Placed During This Visit: yes Reason for Continuing Indwelling Catheter: Accurate Measurement of Urinary Output in Critically Ill Patients Urinary Catheter Date of Insertion: 02/27/25 Urinary Catheter Time of Insertion: 19:49 Data 02/28/25 03:24 02/28/25 03:24 A&P Assessment and plan (1) Hyperkalemia: Hyperkalemia with potassium of 7.8 Insulin 10 units IV push and dextrose to go along Albuterol 2.5 mg inhalation now Kayexalate 15 g p.o. now Calcium gluconate being given in the emergency room currently. serial potassium check at 7 pm (2) COPD exacerbation: 69-year-old lady brought to the emergency room, unable to provide much history, however noted to be tachypneic, struggling to complete sentences, currently on 4 L/min supplemental O2 at the time of this exam. Check respiratory viral panel Chest x-ray without any infiltrates. Showing central pulmonary vascular congestive changes Methylprednisolone 40 mg IV every 8 hours DuoNeb every 6 hour, budesonide twice daily inhalation Pulmonary toilet with incentive spirometry flutter valve. Unlikely PE as patient is on Eliquis chronically (3) Diastolic heart failure: Acute on chronic diastolic heart failure exacerbation Patient has lower extremity pitting edema and elevated BNP. Chest x-ray showing signs of pulmonary vascular congestion Lasix 40 mg IV now Closely monitor urine output and kidney function, further doses of Lasix to be based off of response to current dose. Last echocardiogram from January 2023 showing LVEF of 68%, mild LVH, no regional wall motion abnormalities, thickened mitral valve. There was estimated PASP of 58 mmHg at the time.Evidence of pulmonary hypertension. Baseline troponin at 22, Downtrending at 2 hours at 17, unlikely ACS (4) Atrial fibrillation: Rate controlled Continue home dose of metoprolol (5) HIV disease: On Biktarvy chronically States that she has not had a lab check in a while. Check CD4 count and viral load Continue Biktarvy for hospital use Plan DVT prophylaxis: Eliquis 5 mg twice daily Full code February 28, 2025 Respiratory status is better today. Patient is currently on 2 L/min supplemental O2. Went into A-fib with RVR overnight for which she is currently started on amiodarone infusion. At the time of this assessment heart rate recorded is at 109/min in A-fib. Continue amiodarone infusion. Restart home dose of metoprolol 100 mg daily as patient takes at home. Continue IV steroids, scheduled nebulization for COPD exacerbation.She received Lasix 40 mg IV yesterday following which she made nearly 4 L of urine output. Resume her home dose of Lasix oral 40 mg p.o. daily. Lower extremity edema is still noted however better compared to yesterday's exam. Transferred from ICU to CSU. PDMP PDMP Reviewed: Not Reviewed Attestations 2 Medical Necessity Statement*: Continued admission for amiodarone infusion, IV steroids, scheduled nebulization, transitioning diuretics IV to oral. Coding Level of Care Code Acute Code for Chg Fwd High MDM includes number and complexity of problems actively addressed during encounter, amount and/or complexity of data reviewed/ordered and described risk of complication, morbidity or mortality of management as documented Diagnoses Hyperkalemia E87.5 COPD exacerbation J44.1 Acute on chronic diastolic heart failure I50.33 Heart failure chronicity: acute on chronic Paroxysmal atrial fibrillation I48.0 Atrial fibrillation type: paroxysmal HIV disease B20
[2025-02-28 10:58] LABS: Adenovirus Not Detected (NOT DETECT); Chlamydia Pneumoniae Not Detected (NOT DETECT); Coronavirus 229E,HKU1,NL63,OC4 Not Detected (NOT DETECT); Human Metapneumovirus Not Detected (NOT DETECT); Human Rhinovirus/Enterovirus Not Detected (NOT DETECT); Influenza A Not Detected (NOT DETECT); Influenza A H1 Not Detected (NOT DETECT); Influenza A H1-2009 Not Detected (NOT DETECT); Influenza A H3 Not Detected (NOT DETECT); Influenza B Not Detected (NOT DETECT); Mycoplasma Pneumoniae Not Detected (NOT DETECT); Parainfluenza Virus Type 1 Not Detected (NOT DETECT); Parainfluenza Virus Type 2 Not Detected (NOT DETECT); Parainfluenza Virus Type 3 Not Detected (NOT DETECT); Parainfluenza Virus Type 4 Not Detected (NOT DETECT); Respiratory Syncytial Virus A Not Detected (NOT DETECT); Respiratory Syncytial Virus B Not Detected (NOT DETECT); SARS-COV-2 Not Detected (NOT DETECT)
--- NOTE | 2025-02-28 16:33 | PC.PHAR ---
Patient didn't stay awake long enough to go over all of her med list . I verified with last fill dates .
[2025-02-28] MEDS: acetaminophen 325 mg Tablet 650 MG PO (17:46)
--- NOTE | 2025-02-28 18:24 | PC.NURSE ---
received from icu into room 104 at 1800.report received.afib at controlled rate on monitor.oriented to room environment.instructed to notify staff for any sob,pain,if needs to get up..verb understanding of instructions
[2025-03-01] VITALS (20 sets, daily range): BP systolic 138–179; BP diastolic 98–125; PULSE 106–131; RESP 15–22; TEMP 36.7–37.1; O2SAT 94–98
[2025-03-01] MEDS: ipratropium-albuterol 3 mL Neb INHALATION ×2 (01:53→07:57)
[2025-03-01 04:47] LABS: Basophils % 0.1 %; Hematocrit 42.4 % (36-47); Lymphocytes # 0.6 10^3/uL (0.8-4.8); Lymphocytes % 4.2 %; Mean Corpuscular HGB Conc 30.7 g/dL (30-55); Mean Corpuscular Hemoglobin 28.3 pg (27-33); Mean Corpuscular Volume 92.2 fl (85-98); Mean Platelet Volume 9.8 fL (7.4-10.4); Monocytes # 1.3 10^3/uL (0.2-0.9); Monocytes % 8.9 %; Neutrophils # 12.34 10^3/uL (1.8-7.7); Neutrophils % 86.2 %; Nucleated Red Blood Cells % 0 %; Platelet Count 269 10^3/cmm (157-399); Red Cell Distribution Width 16.7 % (12.1-15.1); White Blood Count 14.31 10^3/uL (3.29-11.43)
[2025-03-01 05:05] LABS: Alanine Aminotransferase 19 U/L (0-33); Albumin Level 3.5 g/dL (3.5-5.2); Alkaline Phosphatase 251 U/L (35-105); Anion Gap 16.5 (5-19); Aspartate Amino Transferase 23 U/L (0-32); Blood Urea Nitrogen 21 mg/dL (8-23); Calcium 8.9 mg/dL (8.5-10.5); Carbon Dioxide 26 mmol/L (22-29); Chloride 102 mmol/L (98-107); Creatinine Clr Calc Pharmacy 64.7905; Glomerular Filtration Rate 55.3 mL/min (90-130); Glucose 255 mg/dL (65-115); Osmolality Calculated 302 mOsm/kg (285-295); Potassium 4.5 mmol/L (3.5-5.1); Sodium 140 mmol/L (136-145); Total Bilirubin 0.4 mg/dL (0.15-1.2); Total Protein 6.5 g/dL (6.6-8.7)
[2025-03-01] MEDS: sertraline 100 mg Tablet PO (05:20)
[2025-03-01] MEDS: atorvastatin 40 mg Tablet 80 MG PO (05:20)
[2025-03-01] MEDS: acetaminophen 325 mg Tablet 650 MG PO ×2 (05:23→19:57)
[2025-03-01] MEDS: budesonide 0.5 mg/2 mL Neb INHALATION ×2 (07:57→19:38)
[2025-03-01] MEDS: metoprolol succinate ER (24 HR) 100 mg Tablet PO (09:47)
[2025-03-01] MEDS: gabapentin 300 mg Capsule 900 MG PO ×2 (09:47→17:56)
[2025-03-01] MEDS: lactulose oral liq 20 gm/30 mL UDC 10 GM PO (09:47)
[2025-03-01] MEDS: apixaban 5 mg Tablet PO ×2 (09:48→17:59)
[2025-03-01] MEDS: pantoprazole DR 40 mg Tablet PO (09:48)
[2025-03-01] MEDS: FUROsemide 40 mg Tablet PO (09:48)
[2025-03-01] MEDS: methylPREDNISolone sod succ 40 mg/mL INJ IVP ×2 (09:48→11:22)
[2025-03-01] MEDS: aspirin 81 mg EC Tablet PO (09:48)
[2025-03-01] MEDS: nicotine 21 mg Patch 1 PATCH TRANSDERMA (09:48)
[2025-03-01] MEDS: digoxin 250 mcg/ml INJ 2 mL IVP ×2 (11:10→22:10)
[2025-03-01] MEDS: cefTRIAXone 1,000 mg SDV 1000 MG IVP (11:10)
[2025-03-01] MEDS: levalbuterol 0.63 mg/3 mL Neb INHALATION ×4 (12:20→23:24)
--- NOTE | 2025-03-01 13:12 | P.PN_ITS ---
Subjective 2 Subjective: Patient noted to have increased wheezing today on exam. Continues to be in A- fib RVR. Amiodarone currently going with 0.5 however heart rate is still 125 to 130 bpm. Medications: Reviewed: Yes Vitals/I&O/Wt Last Vital Signs Temp 98.2 F 03/01/25 12:00 Pulse 125 H 03/01/25 12:22 Resp 22 H 03/01/25 12:22 BP 141/112 03/01/25 12:00 Pulse Ox 96 03/01/25 12:22 O2 Del Method BiPAP 03/01/25 12:22 O2 Flow Rate 3 03/01/25 08:00 FiO2 35 03/01/25 12:22 02/28/25 03/01/25 03/01/25 22:59 06:59 14:59 Intake Total 120 / 1028.87 200 / 1228.87 360 / 360 Output Total 1700 / 1700 200 / 1900 1000 / 1000 Balance -1580 / -671.13 0 / -671.13 -640 / -640 Weight last 48 hrs Weight 105.9 kg Weight 106.5 kg Weight 102.512 kg Physical Exam 2 Narrative: General: No acute distress, AO x3 HEENT: PERRLA, pupils bilaterally equal and reactive, pallors not present Chest: Diffuse wheezing to auscultation bilaterally all areas CVS: S1-S2 regular, no murmurs, no tachycardia, no gallops, no rubs Abdomen: Soft, nontender, no organomegaly, bowel sounds present Neuro: No focal deficits, no facial deformity, AO x3, power 5/5 in all limbs Extremities: Mild lower extremity pitting edema Urinary Catheter Management: Moy: Cath Placed During This Visit: yes Reason for Continuing Indwelling Catheter: Accurate Measurement of Urinary Output in Critically Ill Patients Urinary Catheter Date of Insertion: 02/27/25 Urinary Catheter Time of Insertion: 19:49 Data 03/01/25 04:12 03/01/25 04:12 A&P Assessment and plan (1) Hyperkalemia: Hyperkalemia with potassium of 7.8 Insulin 10 units IV push and dextrose to go along Albuterol 2.5 mg inhalation now Kayexalate 15 g p.o. now Calcium gluconate being given in the emergency room currently. serial potassium check at 7 pm (2) COPD exacerbation: 69-year-old lady brought to the emergency room, unable to provide much history, however noted to be tachypneic, struggling to complete sentences, currently on 4 L/min supplemental O2 at the time of this exam. Check respiratory viral panel Chest x-ray without any infiltrates. Showing central pulmonary vascular congestive changes Methylprednisolone 40 mg IV every 8 hours DuoNeb every 6 hour, budesonide twice daily inhalation Pulmonary toilet with incentive spirometry flutter valve. Unlikely PE as patient is on Eliquis chronically (3) Diastolic heart failure: Acute on chronic diastolic heart failure exacerbation Patient has lower extremity pitting edema and elevated BNP. Chest x-ray showing signs of pulmonary vascular congestion Lasix 40 mg IV now Closely monitor urine output and kidney function, further doses of Lasix to be based off of response to current dose. Last echocardiogram from January 2023 showing LVEF of 68%, mild LVH, no regional wall motion abnormalities, thickened mitral valve. There was estimated PASP of 58 mmHg at the time.Evidence of pulmonary hypertension. Baseline troponin at 22, Downtrending at 2 hours at 17, unlikely ACS (4) Atrial fibrillation: Rate controlled Continue home dose of metoprolol (5) HIV disease: On Biktarvy chronically States that she has not had a lab check in a while. Check CD4 count and viral load Continue Biktarvy for hospital use Plan DVT prophylaxis: Eliquis 5 mg twice daily Full code February 28, 2025 Respiratory status is better today. Patient is currently on 2 L/min supplemental O2. Went into A-fib with RVR overnight for which she is currently started on amiodarone infusion. At the time of this assessment heart rate recorded is at 109/min in A-fib. Continue amiodarone infusion. Restart home dose of metoprolol 100 mg daily as patient takes at home. Continue IV steroids, scheduled nebulization for COPD exacerbation.She received Lasix 40 mg IV yesterday following which she made nearly 4 L of urine output. Resume her home dose of Lasix oral 40 mg p.o. daily. Lower extremity edema is still noted however better compared to yesterday's exam. Transferred from ICU to CSU. March 01, 2025 Patient has diffuse wheezing on exam today. States that she feels its harder to breathe. Increase methylprednisolone to 80 mg IV every 8 hours. Additionally will add digoxin 500 mcg x 1 followed by 250 mcg 6 hours later and then to 50 mcg every 12 hours. Patient's lower extremity edema is much improved compared to previously. Creatinine is improved at 1.0. Urine output 2900 cc. Net -3800 cc since admission. Continue metoprolol 100 mg p.o. daily. If A-fib fails to respond to the above measures, will consult cardiology. PDMP PDMP Reviewed: Not Reviewed Attestations 2 Medical Necessity Statement*: Start digoxin, continue amiodarone, add xopenex , increase steroids Coding Level of Care Code Acute Code for [facility] Fwd Diagnoses Hyperkalemia E87.5 COPD exacerbation J44.1 Acute on chronic diastolic heart failure I50.33 Heart failure chronicity: acute on chronic Paroxysmal atrial fibrillation I48.0 Atrial fibrillation type: paroxysmal HIV disease B20
--- NOTE | 2025-03-01 13:29 | ECG_ITS ---
[employer] Test Date: 2025-03-01 Pat Name: Katie Andrews Department: Room: 104 Gender: Female Supervisor In Charge: : 1955 Requested By: Sary Zavala Order Number: [id number] Reading MD: ROMY FERRO Measurements Intervals [place] Rate: 120 P: 0 GA: 0 QRS: 3 QRSD: 84 T: 156 QT: 297 QTc: 420 Interpretive Statements ATRIAL FIBRILLATION WITH RAPID VENTRICULAR RESPONSE SEPTAL MYOCARDIAL INFARCTION , OF INDETERMINATE AGE [40+ ms Q WAVE IN V1/V2] Compared to ECG 02/27/2025 23:36:10 Sinus rhythm no longer present Myocardial infarct finding still present Electronically Signed On 03-08-2025 22:47:20 CDT by ROMY FERRO [email or web address]
--- NOTE | 2025-03-01 13:53 | PC.NURSE ---
pt c/o substernal cp after walking back from bathroom..at 1240.pt rated pain at 8/10 initially.pt was diaphoretic.placed back on bipap.ekg obtained.hr 130's (afib).bp 179/125.ekg obtained.cp then rated as 6/10.dr reddy notified.she will order troponin series and ntg paste.
[2025-03-01] MEDS: nitroglycerin 1 gm/inch oint Pkt 1 INCH TOPICAL ×2 (14:00→19:57)
--- NOTE | 2025-03-01 15:53 | ECG_ITS ---
[employer] Test Date: 2025-03-01 Pat Name: Katie Andrews Department: Room: 104 Gender: Female [place]ccaro: : 1955 Requested By: Sary Zavala Order Number: [id number] Reading MD: ROMY FERRO Measurements Intervals [place] Rate: 115 P: 0 ID: 0 QRS: 4 QRSD: 90 T: 180 QT: 301 QTc: 418 Interpretive Statements ATRIAL FIBRILLATION WITH RAPID VENTRICULAR RESPONSE ANTEROSEPTAL MYOCARDIAL INFARCTION , PROBABLY OLD [40+ ms Q WAVE IN V1-V4] Compared to ECG 03/01/2025 13:38:43 No significant changes Electronically Signed On 03-08-2025 22:55:49 CDT by ROMY FERRO [email or web address]
[2025-03-01] MEDS: ipratropium 0.5 mg/2.5 mL Neb INHALATION ×3 (15:58→23:23)
[2025-03-01] MEDS: digoxin 250 mcg/ml INJ 2 mL 500 MCG IVP (16:33)
--- NOTE | 2025-03-01 18:55 | PC.NURSE ---
no further episodes chest pain reported. bp running high..dr reddy aware.
--- NOTE | 2025-03-01 19:19 | PC.NURSE ---
noted that troponin was not obtained as ordered by dr reddy.lab notified.lab states that they had maxed out their attempts to draw the lab .however,this nurse was not notified of this.nursing staff to obtain sample at this time
[2025-03-01] MEDS: NON-FORMULARY MEDICATION (Bictegrav-Emtricit-Tenofov Ala [Biktarvy] 50-200-25 mg tablet) 1 EACH PO ×2 (19:56→22:10)
[2025-03-01 19:57] LABS: Troponin(5th) Baseline 13 ng/L (0-10)
[2025-03-01] MEDS: methylPREDNISolone sod succ 40 mg/mL INJ 80 MG IVP (19:57)
[2025-03-01 20:58] LABS: Troponin 5 2HR 12.03 ng/L (0-10)
[2025-03-01 21:00] LABS: Troponin 5 2HR Delta -0.97 ABS# (0-10)
[2025-03-02] VITALS (18 sets, daily range): BP systolic 137–169; BP diastolic 87–115; PULSE 90–109; RESP 14–23; TEMP 36.6–37.1; O2SAT 93–98
[2025-03-02] MEDS: metoprolol tartrate 1 mg/1 mL SDV 5 mL 5 MG IVP (01:27)
[2025-03-02] MEDS: nitroglycerin 1 gm/inch oint Pkt 1 INCH TOPICAL ×2 (01:28→08:21)
[2025-03-02 01:45] LABS: Basophils % 0.1 %; Hematocrit 43.2 % (36-47); Lymphocytes # 0.3 10^3/uL (0.8-4.8); Mean Corpuscular HGB Conc 30.8 g/dL (30-55); Mean Corpuscular Hemoglobin 28.4 pg (27-33); Mean Corpuscular Volume 92.3 fl (85-98); Mean Platelet Volume 9.3 fL (7.4-10.4); Monocytes # 0.2 10^3/uL (0.2-0.9); Monocytes % 2.4 %; Neutrophils # 9.04 10^3/uL (1.8-7.7); Neutrophils % 93.7 %; Nucleated Red Blood Cells % 0 %; Platelet Count 192 10^3/cmm (157-399); Red Blood Count 4.68 10^6/uL (3.85-5.65); Red Cell Distribution Width 16.2 % (12.1-15.1); White Blood Count 9.65 10^3/uL (3.29-11.43)
[2025-03-02 02:04] LABS: Troponin 5 6HR 12.24 ng/L (0-10)
[2025-03-02 02:06] LABS: Alanine Aminotransferase 26 U/L (0-33); Albumin Level 3.9 g/dL (3.5-5.2); Alkaline Phosphatase 258 U/L (35-105); Aspartate Amino Transferase 29 U/L (0-32); Blood Urea Nitrogen 17 mg/dL (8-23); Carbon Dioxide 30 mmol/L (22-29); Chloride 99 mmol/L (98-107); Creatinine Clr Calc Pharmacy 71.9895; Globulin 2.5 g/dL (1.3-4.6); Glomerular Filtration Rate 62.5 mL/min (90-130); Glucose 298 mg/dL (65-115); Osmolality Calculated 305 mOsm/kg (285-295); Sodium 141 mmol/L (136-145); Total Bilirubin 0.6 mg/dL (0.15-1.2); Total Protein 6.4 g/dL (6.6-8.7); Troponin 5 6HR Delta -0.76 ng/L (0-12)
[2025-03-02] MEDS: methylPREDNISolone sod succ 40 mg/mL INJ 80 MG IVP ×2 (03:39→12:45)
[2025-03-02] MEDS: levalbuterol 0.63 mg/3 mL Neb INHALATION ×5 (03:58→20:34)
[2025-03-02] MEDS: ipratropium 0.5 mg/2.5 mL Neb INHALATION ×5 (03:58→20:35)
[2025-03-02] MEDS: atorvastatin 40 mg Tablet 80 MG PO (05:14)
[2025-03-02] MEDS: sertraline 100 mg Tablet PO (05:14)
[2025-03-02] MEDS: aspirin 81 mg EC Tablet PO (08:20)
[2025-03-02] MEDS: apixaban 5 mg Tablet PO ×2 (08:20→16:50)
[2025-03-02] MEDS: nicotine 21 mg Patch 1 PATCH TRANSDERMA (08:20)
[2025-03-02] MEDS: metoprolol succinate ER (24 HR) 100 mg Tablet PO (08:21)
[2025-03-02] MEDS: acetaminophen 325 mg Tablet 650 MG PO ×3 (08:21→23:28)
[2025-03-02] MEDS: gabapentin 300 mg Capsule 900 MG PO ×2 (08:21→16:50)
[2025-03-02] MEDS: azithromycin 250 mg Tablet 500 MG PO (08:21)
[2025-03-02] MEDS: pantoprazole DR 40 mg Tablet PO (08:21)
[2025-03-02] MEDS: FUROsemide 40 mg Tablet PO (08:22)
[2025-03-02] MEDS: lactulose oral liq 20 gm/30 mL UDC 10 GM PO (08:22)
[2025-03-02] MEDS: budesonide 0.5 mg/2 mL Neb INHALATION ×2 (08:28→20:34)
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
[2025-03-02] MEDS: cefTRIAXone 1,000 mg SDV 1000 MG IVP (10:33)
[2025-03-02] MEDS: digoxin 250 mcg/ml INJ 2 mL IVP (10:34)
--- NOTE | 2025-03-02 12:23 | P.PN_ITS ---
Subjective 2 Subjective: Patient wheezing is better today. However still noted to be department. She is struggling to complete sentences at this time. States that this is not her baseline. She does not remember her last CD4 count or viral. Medications: Reviewed: Yes Vitals/I&O/Wt Last Vital Signs Temp 97.9 F 03/02/25 11:29 Pulse 105 H 03/02/25 11:29 Resp 18 03/02/25 11:29 BP 169/89 03/02/25 11:29 Pulse Ox 98 03/02/25 11:29 O2 Del Method Nasal Cannula 03/02/25 11:29 O2 Flow Rate 3 03/02/25 11:12 FiO2 35 03/02/25 03:59 03/01/25 03/02/25 03/02/25 22:59 06:59 14:59 Intake Total 440 / 1040 200 / 1240 330.018 / 330.018 Output Total 4300 / 6750 3400 / 16813 3250 / 3250 Balance -3860 / -5710 -3200 / -8910 -2919.982 / -2919.982 Weight last 48 hrs Weight 104.78 kg Physical Exam 2 Narrative: General: No acute distress, AO x3 HEENT: PERRLA, pupils bilaterally equal and reactive, pallors not present Chest: Normal vesicular breath sounds, no added sounds, equal good air entry bilaterally CVS: S1-S2 regular, no murmurs, no tachycardia, no gallops, no rubs Abdomen: Soft, nontender, no organomegaly, bowel sounds present Neuro: No focal deficits, no facial deformity, AO x3, power 5/5 in all limbs Extremities: Lower extremity edema is improving. Urinary Catheter Management: Moy: Cath Placed During This Visit: yes Reason for Continuing Indwelling Catheter: Accurate Measurement of Urinary Output in Critically Ill Patients Urinary Catheter Date of Insertion: 02/27/25 Urinary Catheter Time of Insertion: 19:49 Data 03/02/25 01:35 03/02/25 01:35 A&P Assessment and plan (1) Hyperkalemia: Hyperkalemia with potassium of 7.8 Insulin 10 units IV push and dextrose to go along Albuterol 2.5 mg inhalation now Kayexalate 15 g p.o. now Calcium gluconate being given in the emergency room currently. serial potassium check at 7 pm (2) COPD exacerbation: 69-year-old lady brought to the emergency room, unable to provide much history, however noted to be tachypneic, struggling to complete sentences, currently on 4 L/min supplemental O2 at the time of this exam. Check respiratory viral panel Chest x-ray without any infiltrates. Showing central pulmonary vascular congestive changes Methylprednisolone 40 mg IV every 8 hours DuoNeb every 6 hour, budesonide twice daily inhalation Pulmonary toilet with incentive spirometry flutter valve. Unlikely PE as patient is on Eliquis chronically (3) Diastolic heart failure: Acute on chronic diastolic heart failure exacerbation Patient has lower extremity pitting edema and elevated BNP. Chest x-ray showing signs of pulmonary vascular congestion Lasix 40 mg IV now Closely monitor urine output and kidney function, further doses of Lasix to be based off of response to current dose. Last echocardiogram from January 2023 showing LVEF of 68%, mild LVH, no regional wall motion abnormalities, thickened mitral valve. There was estimated PASP of 58 mmHg at the time.Evidence of pulmonary hypertension. Baseline troponin at 22, Downtrending at 2 hours at 17, unlikely ACS (4) Atrial fibrillation: Rate controlled Continue home dose of metoprolol (5) HIV disease: On Biktarvy chronically States that she has not had a lab check in a while. Check CD4 count and viral load Continue Biktarvy for hospital use Plan DVT prophylaxis: Eliquis 5 mg twice daily Full code February 28, 2025 Respiratory status is better today. Patient is currently on 2 L/min supplemental O2. Went into A-fib with RVR overnight for which she is currently started on amiodarone infusion. At the time of this assessment heart rate recorded is at 109/min in A-fib. Continue amiodarone infusion. Restart home dose of metoprolol 100 mg daily as patient takes at home. Continue IV steroids, scheduled nebulization for COPD exacerbation.She received Lasix 40 mg IV yesterday following which she made nearly 4 L of urine output. Resume her home dose of Lasix oral 40 mg p.o. daily. Lower extremity edema is still noted however better compared to yesterday's exam. Transferred from ICU to CSU. March 01, 2025 Patient has diffuse wheezing on exam today. States that she feels its harder to breathe. Increase methylprednisolone to 80 mg IV every 8 hours. Additionally will add digoxin 500 mcg x 1 followed by 250 mcg 6 hours later and then to 50 mcg every 12 hours. Patient's lower extremity edema is much improved compared to previously. Creatinine is improved at 1.0. Urine output 2900 cc. Net -3800 cc since admission. Continue metoprolol 100 mg p.o. daily. If A-fib fails to respond to the above measures, will consult cardiology. March 02, 2025 Wheezing is better on exam today. Will continue methylprednisolone 80 mg IV every 8 hours today. Digoxin was added yesterday however patient continues to be in A-fib and spite of being on amiodarone infusion, digoxin load yesterday and being on p.o. metoprolol. Increase oral metoprolol to 150 mg daily. Cardiology consult. Will resume her home dose of lisinopril now that creatinine has improved. She is overall net -15 L since admission. Monitor bicarb levels closely, trending towards alkalosis now with bicarb at 30 today. Reduce Lasix to 20 mg p.o. daily. Will aim to titrate steroids over the next [address] of the chest today without contrast to assess for any atypical infection such as pneumocystis pneumonia given that patient has underlying HIV without any additionally for count on file. Please have been requested from Dr. Holt's office in [place]. Patient's continuing to get more and respiratory discomfort seems out of proportion with clinical exam now that pulmonary edema and breathing are both improving. This raises suspicion for an atypical process such as PJP. Less likely to be PE given patient is chronically on Eliquis. PDMP PDMP Reviewed: Not Reviewed Attestations 2 Medical Necessity Statement*: Heart rate needs to be brought under control.continues with RVR. Ct chest today, taper steroids Coding Level of Care Code Acute Code for Chg Fwd High MDM includes number and complexity of problems actively addressed during encounter, amount and/or complexity of data reviewed/ordered and described risk of complication, morbidity or mortality of management as documented Diagnoses Hyperkalemia E87.5 COPD exacerbation J44.1 Acute on chronic diastolic heart failure I50.33 Heart failure chronicity: acute on chronic Paroxysmal atrial fibrillation I48.0 Atrial fibrillation type: paroxysmal HIV disease B20
[2025-03-02] MEDS: TRAMadol 50 mg Tablet PO ×3 (12:45→23:28)
[2025-03-02] MEDS: metoprolol succinate ER (24 HR) 50 mg Tablet PO (12:45)
[2025-03-02] MEDS: lisinopril 10 mg Tablet PO (12:56)
[2025-03-02 13:18] LABS: HIV RNA (CPY/ML) NOT DETECTED (NOT DETECTED); HIV RNA LOG NOT DETECTED copies/mL (NOT DETECTED)
[2025-03-02 18:34] LABS: Glucose Point of Care 262 mg/dL (70-110)
[2025-03-02] MEDS: NON-FORMULARY MEDICATION (Bictegrav-Emtricit-Tenofov Ala [Biktarvy] 50-200-25 mg tablet) 1 EACH PO (20:17)
[2025-03-03] VITALS (20 sets, daily range): BP systolic 129–168; BP diastolic 90–110; PULSE 80–104; RESP 11–28; TEMP 36.2–36.6; O2SAT 89–100
[2025-03-03] MEDS: ipratropium 0.5 mg/2.5 mL Neb INHALATION ×4 (00:21→20:05)
[2025-03-03] MEDS: levalbuterol 0.63 mg/3 mL Neb INHALATION ×4 (00:21→20:06)
[2025-03-03] MEDS: methylPREDNISolone sod succ 40 mg/mL INJ 80 MG IVP (00:29)
[2025-03-03 03:17] LABS: Basophils % 0.1 %; Hematocrit 45.1 % (36-47); Lymphocytes # 1.1 10^3/uL (0.8-4.8); Lymphocytes % 8.8 %; Mean Corpuscular Hemoglobin 28.5 pg (27-33); Mean Corpuscular Volume 91.9 fl (85-98); Mean Platelet Volume 9.4 fL (7.4-10.4); Neutrophils # 10.46 10^3/uL (1.8-7.7); Neutrophils % 82.3 %; Nucleated Red Blood Cells % 0 %; Platelet Count 200 10^3/cmm (157-399); Red Blood Count 4.91 10^6/uL (3.85-5.65); Red Cell Distribution Width 15.7 % (12.1-15.1); White Blood Count 12.71 10^3/uL (3.29-11.43)
[2025-03-03 03:40] LABS: Alanine Aminotransferase 33 U/L (0-33); Albumin Level 3.9 g/dL (3.5-5.2); Alkaline Phosphatase 259 U/L (35-105); Anion Gap 15.4 (5-19); Aspartate Amino Transferase 31 U/L (0-32); Blood Urea Nitrogen 25 mg/dL (8-23); Calcium 9.6 mg/dL (8.5-10.5); Carbon Dioxide 34 mmol/L (22-29); Chloride 97 mmol/L (98-107); Creatinine Clr Calc Pharmacy 64.4045; Globulin 3.2 g/dL (1.3-4.6); Glomerular Filtration Rate 55.3 mL/min (90-130); Glucose 237 mg/dL (65-115); Osmolality Calculated 308 mOsm/kg (285-295); Potassium 3.4 mmol/L (3.5-5.1); Sodium 143 mmol/L (136-145); Total Bilirubin 0.7 mg/dL (0.15-1.2); Total Protein 7.1 g/dL (6.6-8.7)
[2025-03-03] MEDS: sertraline 100 mg Tablet PO (05:40)
[2025-03-03] MEDS: atorvastatin 40 mg Tablet 80 MG PO (05:40)
[2025-03-03] MEDS: buPROPion XL (24 HR) 300 mg Tablet PO (05:40)
[2025-03-03] MEDS: TRAMadol 50 mg Tablet PO ×3 (05:44→19:06)
[2025-03-03] MEDS: budesonide 0.5 mg/2 mL Neb INHALATION ×2 (08:07→20:05)
[2025-03-03 08:16] LABS: Absolute CD4 + Cells 193 cells/uL (490-1740); Absolute Lymphocytes 547 cells/uL (850-3900); Absoulte CD8+Cells 120 cells/uL (180-1170); CD4/CD8 Ratio 1.61 (0.86-5.00); Percent CD8 22 % (12-42); Percentage CD4 35 % (30-61)
[2025-03-03] MEDS: lactulose oral liq 20 gm/30 mL UDC 10 GM PO (08:47)
[2025-03-03] MEDS: gabapentin 300 mg Capsule 900 MG PO ×2 (08:47→17:41)
[2025-03-03] MEDS: aspirin 81 mg EC Tablet PO (08:47)
[2025-03-03] MEDS: FUROsemide 40 mg Tablet 20 MG PO (08:48)
[2025-03-03] MEDS: nicotine 21 mg Patch 1 PATCH TRANSDERMA (08:48)
[2025-03-03] MEDS: metoprolol succinate ER (24 HR) 50 mg Tablet 150 MG PO (08:48)
[2025-03-03] MEDS: azithromycin 250 mg Tablet 500 MG PO (08:48)
[2025-03-03] MEDS: digoxin 125 mcg Tablet PO (08:48)
[2025-03-03] MEDS: lisinopril 10 mg Tablet PO (08:49)
[2025-03-03] MEDS: apixaban 5 mg Tablet PO ×2 (08:49→17:41)
[2025-03-03] MEDS: pantoprazole DR 40 mg Tablet PO (08:49)
--- NOTE | 2025-03-03 08:57 | P.PN_ITS ---
<Statement entered by Gilbert Maldonado M.D - 03/04/25 14:18> Patient was cared for in conjunction with an advanced practice practitioner.? I reviewed the chart and all pertinent data including imaging, telemetry, and laboratory results.? I discussed the patient in detail with the advanced practice practitioner.? Please see? their note for complete progress note, testing results and agreed upon plan of care for the patient. Plan for JM/ Cardioversion tomorrow. NPO past midnight. Continue eliquis Subjective 2 Subjective: She is reporting intermittent sharp pain underneath her breast right more than left lasting less than a minute, not worsened by breathing which occurred overnight. She is still in atrial fibrillation, rate control inadequate. Amiodarone infusion has been discontinued will start oral amiodarone 400 mg twice a day now. Afternoon update: Since atrial fibrillation has not well-controlled we will plan for JM guided cardioversion tomorrow. She has missed doses of Eliquis in the last month, 2 weeks ago she missed 4 days in a row. Vitals/I&O/Wt Last Vital Signs Temp 97.5 F L 03/03/25 08:00 Pulse 99 03/03/25 08:48 Resp 19 H 03/03/25 08:00 BP 158/95 03/03/25 08:00 Pulse Ox 94 03/03/25 08:00 O2 Del Method Nasal Cannula 03/03/25 08:00 O2 Flow Rate 3 03/03/25 08:00 FiO2 35 03/03/25 00:00 03/02/25 03/03/25 03/03/25 22:59 06:59 14:59 Intake Total 1043.982 / 2042.927 240 / 2042.927 188.927 / 188.927 Output Total 3450 / 9600 1650 / 9600 Balance -2406.018 / -7557.073 -1410 / -7557.073 188.927 / 188.927 Weight last 48 hrs Weight 209 lb Weight 231 lb Physical Exam 2 Const: COMMON NORMALS: no acute distress and patient oriented x3 Chest: COMMONS NORMALS: normal inspection of the chest and normal palpation of entire chest wall CHEST: Yes Symmetrical chest wall rise Resp: COMMON NORMALS: normal respiratory effort, No retractions, No use of accessory muscles and clear to auscultation bilaterally EFFORT & INSPECTION: Yes symmetric chest movement AUSCULTATION: clear to auscultation bilaterally Cardio: COMMON NORMALS: S1 normal heart sound present, S2 normal heart sound present, No gallops present (Cardio), No clicks present (Cardio), No murmurs present (Cardio) and No rub (Cardio) RHYTHM: abnormal rhythm irregularly irregular HEART SOUNDS: S1 normal heart sound present and S2 normal heart sound present PERIPHERAL PULSES: radial pulses present, posterior tibial pulses present and dorsalis pedis present Extremity: GENERAL: No edema Neuro: COMMON NORMALS: patient oriented x3 and moves all extremities Psych: COMMON NORMALS: mental status grossly normal and cooperative Urinary Catheter Management: Moy: Cath Placed During This Visit: yes Reason for Continuing Indwelling Catheter: Accurate Measurement of Urinary Output in Critically Ill Patients Urinary Catheter Date of Insertion: 02/27/25 Urinary Catheter Time of Insertion: 19:49 Data 03/03/25 02:34 03/03/25 02:34 A&P Assessment and plan (1) Atrial fibrillation with RVR: (2) Benign essential HTN: (3) CAD (coronary artery disease): (4) Anticoagulation adequate with anticoagulant therapy: (5) Obstructive sleep apnea: (6) Chronic kidney disease: (7) Pulmonary HTN: Plan Will start oral amiodarone 400 mg twice daily this morning. She does not appear volume overloaded, -7 L in the last 24 hours -19 L cumulative. Renal function normal. If she does not have better rate control on oral amiodarone by tomorrow will plan for JM guided cardioversion. She missed several doses of anticoagulation in the last month, will plan for JM with cardioversion. PDMP PDMP Reviewed: Not Reviewed Attestations 2 Medical Necessity Statement*: A-fib with RVR, poorly controlled, possible cardioversion Coding Level of Care Code Acute Code for [facility] Diagnoses Atrial fibrillation with RVR I48.91 Benign essential HTN I10 CAD (coronary artery disease) I25.10 Anticoagulation adequate with anticoagulant therapy Z79.01 Obstructive sleep apnea G47.33 Chronic kidney disease N18.9 Pulmonary HTN I27.20
[2025-03-03] MEDS: amiodarone 200 mg Tablet 400 MG PO ×2 (10:09→17:41)
[2025-03-03] MEDS: cefTRIAXone 1,000 mg SDV 1000 MG IVP (10:09)
--- NOTE | 2025-03-03 12:23 | CTR_ITS ---
PROCEDURE INFORMATION: Exam: CT Chest Without Contrast; Diagnostic Exam date and time: 03/03/2025 7:54 AM Age: 69 years old Clinical indication: Dyspnea; HX of throat cancer; Additional info: Assess for pneumonitis, hiv patient with persistent dyspnea, concern for atypical TECHNIQUE: Imaging protocol: Diagnostic computed tomography of the chest without contrast. Radiation optimization: All CT scans at this facility use at least one of these dose optimization techniques: automated exposure control; mA and/or kV adjustment per patient size (includes targeted exams where dose is matched to clinical indication); or iterative reconstruction. COMPARISON: CT angio chest PE protcl [id number] 09/23/2024 9:24 PM RADIATION DOSE METRICS: Total DLP (mGy-cm): 659.52 FINDINGS: Lungs: Mild dependent atelectasis in bilateral lower lobes. No focal consolidation or generalized interstitial process. No suspicious pulmonary nodules. Mild mosaic attenuation again seen within the lungs. Pleural spaces: Small right and trace left pleural effusions. Heart: Stable heart size. No pericardial effusion. Mild mitral annular calcifications. Coronary arteries: Coronary stenting along the LAD. Scattered coronary artery calcifications. Lymph nodes: Unremarkable. No enlarged lymph nodes. Vasculature: The thoracic aorta is nonaneurysmal with scattered atherosclerotic calcifications. The main pulmonary artery is dilated up to 3.9 cm, similar to prior. Vascular patency not assessed without intravenous contrast. Diaphragm: Small sliding-type hiatal hernia. Kidneys: Small coarse left renal cortical calcification with adjacent scarring. Bones/joints: Multilevel thoracic spondylosis, similar to prior. No acute or aggressive osseous lesion. Soft tissues: Unremarkable. CT/CT chest wo con [id number] IMPRESSION: 1. Small right and trace left pleural effusions with adjacent compressive atelectasis. No consolidative airspace disease or evidence to suggest pneumonitis. 2. Mild mosaic attenuation of the lungs is again present. Findings are nonspecific but can be seen with air trapping from chronic small airways disease among other etiologies. 3. Dilated main pulmonary artery can be seen with pulmonary arterial hypertension.
--- NOTE | 2025-03-03 13:49 | PM.PN ---
Subjective Subjective: Clinically she is looking improved. Chest is clear to auscultation. Very minimal wheezing encountered. Heart rate is much better controlled currently between 95-100. Has been transitioned off of amiodarone drip onto p.o. amiodarone. Medications: Reviewed: Yes Vitals/I&O/Wt Last Vital Signs Temp 97.8 F 03/03/25 12:00 Pulse 102 H 03/03/25 12:00 Resp 15 03/03/25 12:00 BP 140/107 03/03/25 12:00 Pulse Ox 94 03/03/25 12:00 O2 Del Method Nasal Cannula 03/03/25 12:00 O2 Flow Rate 3 03/03/25 11:21 FiO2 35 03/03/25 00:00 03/02/25 03/03/25 03/03/25 22:59 06:59 14:59 Intake Total 1043.982 / 1614.000 240 / 1854.000 768.927 / 768.927 Output Total 3450 / 7950 1650 / 9600 500 / 500 Balance -2406.018 / -6336.000 -1410 / -7746.000 268.927 / 268.927 Weight last 48 hrs Weight 94.801 kg Weight 104.78 kg Physical Exam Narrative: General: No acute distress, AO x3 HEENT: PERRLA, pupils bilaterally equal and reactive, pallors not present Chest: Normal vesicular breath sounds, no added sounds, equal good air entry bilaterally CVS: S1-S2 regular, no murmurs, no tachycardia, no gallops, no rubs Abdomen: Soft, nontender, no organomegaly, bowel sounds present Neuro: No focal deficits, no facial deformity, AO x3, power 5/5 in all limbs Extremities: Lower extremity edema is improving. Urinary Catheter Management: Moy: Cath Placed During This Visit: yes Reason for Continuing Indwelling Catheter: Accurate Measurement of Urinary Output in Critically Ill Patients Urinary Catheter Date of Insertion: 02/27/25 Urinary Catheter Time of Insertion: 19:49 Data 03/03/25 02:34 03/03/25 02:34 A&P Assessment and plan (1) Hyperkalemia: Hyperkalemia with potassium of 7.8 Insulin 10 units IV push and dextrose to go along Albuterol 2.5 mg inhalation now Kayexalate 15 g p.o. now Calcium gluconate being given in the emergency room currently. serial potassium check at 7 pm (2) COPD exacerbation: 69-year-old lady brought to the emergency room, unable to provide much history, however noted to be tachypneic, struggling to complete sentences, currently on 4 L/min supplemental O2 at the time of this exam. Check respiratory viral panel Chest x-ray without any infiltrates. Showing central pulmonary vascular congestive changes Methylprednisolone 40 mg IV every 8 hours DuoNeb every 6 hour, budesonide twice daily inhalation Pulmonary toilet with incentive spirometry flutter valve. Unlikely PE as patient is on Eliquis chronically (3) Diastolic heart failure: Acute on chronic diastolic heart failure exacerbation Patient has lower extremity pitting edema and elevated BNP. Chest x-ray showing signs of pulmonary vascular congestion Lasix 40 mg IV now Closely monitor urine output and kidney function, further doses of Lasix to be based off of response to current dose. Last echocardiogram from January 2023 showing LVEF of 68%, mild LVH, no regional wall motion abnormalities, thickened mitral valve. There was estimated PASP of 58 mmHg at the time.Evidence of pulmonary hypertension. Baseline troponin at 22, Downtrending at 2 hours at 17, unlikely ACS (4) Atrial fibrillation: Rate controlled Continue home dose of metoprolol (5) HIV disease: On Biktarvy chronically States that she has not had a lab check in a while. Check CD4 count and viral load Continue Biktarvy for hospital use Plan DVT prophylaxis: Eliquis 5 mg twice daily Full code February 28, 2025 Respiratory status is better today. Patient is currently on 2 L/min supplemental O2. Went into A-fib with RVR overnight for which she is currently started on amiodarone infusion. At the time of this assessment heart rate recorded is at 109/min in A-fib. Continue amiodarone infusion. Restart home dose of metoprolol 100 mg daily as patient takes at home. Continue IV steroids, scheduled nebulization for COPD exacerbation.She received Lasix 40 mg IV yesterday following which she made nearly 4 L of urine output. Resume her home dose of Lasix oral 40 mg p.o. daily. Lower extremity edema is still noted however better compared to yesterday's exam. Transferred from ICU to CSU. March 01, 2025 Patient has diffuse wheezing on exam today. States that she feels its harder to breathe. Increase methylprednisolone to 80 mg IV every 8 hours. Additionally will add digoxin 500 mcg x 1 followed by 250 mcg 6 hours later and then to 50 mcg every 12 hours. Patient's lower extremity edema is much improved compared to previously. Creatinine is improved at 1.0. Urine output 2900 cc. Net -3800 cc since admission. Continue metoprolol 100 mg p.o. daily. If A-fib fails to respond to the above measures, will consult cardiology. March 02, 2025 Wheezing is better on exam today. Will continue methylprednisolone 80 mg IV every 8 hours today. Digoxin was added yesterday however patient continues to be in A-fib and spite of being on amiodarone infusion, digoxin load yesterday and being on p.o. metoprolol. Increase oral metoprolol to 150 mg daily. Cardiology consult. Will resume her home dose of lisinopril now that creatinine has improved. She is overall net -15 L since admission. Monitor bicarb levels closely, trending towards alkalosis now with bicarb at 30 today. Reduce Lasix to 20 mg p.o. daily. Will aim to titrate steroids over the next [address]. [address] of the chest today without contrast to assess for any atypical infection such as pneumocystis pneumonia given that patient has underlying HIV without any additionally for count on file. Please have been requested from Dr. Holt's office in [place]. Patient's continuing to get more and respiratory discomfort seems out of proportion with clinical exam now that pulmonary edema and breathing are both improving. This raises suspicion for an atypical process such as PJP. Less likely to be PE given patient is chronically on Eliquis. March 03, 2025 Clinically better today. Transition IV methylprednisolone to oral prednisone 60 mg p.o. twice daily. Patient's heart rate is better controlled. Currently between 90-100. Will increase metoprolol further today to maximum dose of 200 mg p.o. daily. Net -19 L overall. Clinically euvolemic now. HIV viral load is undetectable. CD4 count is less than 200 at 196. Will hold off on adding any Bactrim prophylaxis until serial recheck in [address] chest performed yesterday showed small right and trace left pleural effusions without any consolidative airspace disease.dilated main pulmonary artery noted concerning for pulmonary hypertension. Creatinine is stable at 1.0. Low potassium at 3.4, repleted. PDMP PDMP Reviewed: Last Reviewed 03/03/25 13:54 by Sary Zavala MD Attestations Medical Necessity Statement*: Transition IV to oral steroids, increase metoprolol. If has RVR, planned cardioversion with cardiology tomorrow. Coding Level of Care Code Acute Code for [facility] Fwd Diagnoses Hyperkalemia E87.5 COPD exacerbation J44.1 Acute on chronic diastolic heart failure I50.33 Heart failure chronicity: acute on chronic Paroxysmal atrial fibrillation I48.0 Atrial fibrillation type: paroxysmal HIV disease B20
[2025-03-03] MEDS: nitroglycerin 1 gm/inch oint Pkt 1 INCH TOPICAL ×2 (14:43→20:30)
[2025-03-03] MEDS: potassium chloride ER 20 mEq Tablet PO (14:43)
[2025-03-03] MEDS: metoprolol succinate ER (24 HR) 50 mg Tablet PO (14:43)
[2025-03-03] MEDS: predniSONE 20 mg Tablet 40 MG PO (17:41)
[2025-03-03] MEDS: NON-FORMULARY MEDICATION (Bictegrav-Emtricit-Tenofov Ala [Biktarvy] 50-200-25 mg tablet) 1 EACH PO (20:29)
[2025-03-04] VITALS (40 sets, daily range): BP systolic 158–181; BP diastolic 82–116; PULSE 80–106; RESP 14–30; TEMP 36.4–36.9; O2SAT 89–99
[2025-03-04] MEDS: nitroglycerin 1 gm/inch oint Pkt 1 INCH TOPICAL ×4 (01:07→20:15)
[2025-03-04] MEDS: ipratropium 0.5 mg/2.5 mL Neb INHALATION ×5 (03:56→22:24)
[2025-03-04] MEDS: levalbuterol 0.63 mg/3 mL Neb INHALATION ×5 (03:56→22:24)
[2025-03-04] MEDS: sertraline 100 mg Tablet PO (06:28)
[2025-03-04] MEDS: atorvastatin 40 mg Tablet 80 MG PO (06:28)
[2025-03-04] MEDS: buPROPion XL (24 HR) 300 mg Tablet PO (06:28)
[2025-03-04 07:17] LABS: Hematocrit 47.7 % (36-47); Lymphocytes # 0.7 10^3/uL (0.8-4.8); Lymphocytes % 6.2 %; Mean Corpuscular HGB Conc 31.2 g/dL (30-55); Mean Corpuscular Hemoglobin 28.4 pg (27-33); Mean Platelet Volume 9.3 fL (7.4-10.4); Monocytes # 0.7 10^3/uL (0.2-0.9); Monocytes % 6.3 %; Neutrophils # 9.18 10^3/uL (1.8-7.7); Neutrophils % 86.8 %; Nucleated Red Blood Cells % 0 %; Platelet Count 230 10^3/cmm (157-399); Red Blood Count 5.24 10^6/uL (3.85-5.65); Red Cell Distribution Width 15.4 % (12.1-15.1); White Blood Count 10.56 10^3/uL (3.29-11.43)
[2025-03-04] MEDS: budesonide 0.5 mg/2 mL Neb INHALATION ×2 (07:32→22:24)
[2025-03-04 07:42] LABS: Alanine Aminotransferase 86 U/L (0-33); Albumin Level 3.8 g/dL (3.5-5.2); Alkaline Phosphatase 250 U/L (35-105); Anion Gap 15.6 (5-19); Aspartate Amino Transferase 64 U/L (0-32); Blood Urea Nitrogen 24 mg/dL (8-23); Calcium 9.4 mg/dL (8.5-10.5); Carbon Dioxide 31 mmol/L (22-29); Chloride 100 mmol/L (98-107); Creatinine Clr Calc Pharmacy 75.4041; Globulin 2.9 g/dL (1.3-4.6); Glomerular Filtration Rate 71.5 mL/min (90-130); Glucose 194 mg/dL (65-115); Osmolality Calculated 305 mOsm/kg (285-295); Potassium 3.6 mmol/L (3.5-5.1); Sodium 143 mmol/L (136-145); Total Bilirubin 0.7 mg/dL (0.15-1.2); Total Protein 6.7 g/dL (6.6-8.7)
[2025-03-04] MEDS: aspirin 81 mg EC Tablet PO (08:53)
[2025-03-04] MEDS: lactulose oral liq 20 gm/30 mL UDC 10 GM PO (08:53)
[2025-03-04] MEDS: digoxin 125 mcg Tablet PO (08:54)
[2025-03-04] MEDS: azithromycin 250 mg Tablet 500 MG PO (08:54)
[2025-03-04] MEDS: pantoprazole DR 40 mg Tablet PO (08:54)
[2025-03-04] MEDS: lisinopril 10 mg Tablet PO (08:54)
[2025-03-04] MEDS: metoprolol succinate ER (24 HR) 100 mg Tablet 200 MG PO (08:54)
[2025-03-04] MEDS: apixaban 5 mg Tablet PO ×2 (08:54→17:21)
[2025-03-04] MEDS: amiodarone 200 mg Tablet 400 MG PO ×2 (08:55→17:21)
[2025-03-04] MEDS: predniSONE 20 mg Tablet 40 MG PO ×2 (08:55→17:21)
[2025-03-04] MEDS: gabapentin 300 mg Capsule 900 MG PO ×2 (08:55→17:21)
[2025-03-04] MEDS: nicotine 21 mg Patch 1 PATCH TRANSDERMA (08:56)
[2025-03-04] MEDS: TRAMadol 50 mg Tablet PO ×3 (09:23→22:15)
[2025-03-04] MEDS: cefTRIAXone 1,000 mg SDV 1000 MG IVP (11:07)
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
--- NOTE | 2025-03-04 11:25 | PC.NURSE ---
Patient left CSU for JM/cardioversion at 1124.
--- NOTE | 2025-03-04 11:50 | W.PM.OPSUD ---
Surgery/Procedure H&P Update DATE OF PROCEDURE: March 04, 2025 DATE H&P PERFORMED: 03/02/25 H&P UPDATE INFORMATION: I have reviewed H&P completed within last 30 days, I have examined patient prior to procedure and No changes to prior documentation PREOP DIAGNOSIS: A-fib with RVR PRIMARY INDICATION FOR PROCEDURE: Atrial fibrillation with RVR PLANNED PROCEDURE: Transesophageal echocardiogram with cardioversion Anesthesia team available for sedation
--- NOTE | 2025-03-04 12:01 | PC.NURSE ---
to icu 2 for procedure of renato and cardioversion per dr Cadena , anesthesia at bedside
--- NOTE | 2025-03-04 12:09 | PM.PROC ---
Procedure Note: Date of procedure: 03/04/25 Pre-procedure diagnosis: Atrial fibrillation Post-procedure diagnosis: other (Normal sinus rhythm) Procedure: After anesthesia team sedated patient, we proceeded with JM. Left atrial appendage thrombus was ruled out. We then proceeded with 200J cardioversion with shock x 1. Patient cardioverted successfully to normal sinus rhythm Performing Provider: Gilbert Maldonado Complications: None Condition: stable Disposition: no change Coding Level [facility] Care Code [facility]
--- NOTE | 2025-03-04 12:25 | ECG_ITS ---
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1955 Requested By: Gilbert Maldonado Order Number: [id number] Reading MD: ROMY FERRO Measurements Intervals [place] Rate: 70 P: 88 CT: 147 QRS: -4 QRSD: 97 T: 19 QT: 406 QTc: 440 Interpretive Statements SINUS RHYTHM POSSIBLE RIGHT VENTRICULAR CONDUCTION DELAY [RSR (QR) IN V1/V2] ANTEROSEPTAL MYOCARDIAL INFARCTION , OF INDETERMINATE AGE [40+ ms Q WAVE IN V1-V4] Compared to ECG 03/01/2025 18:05:35 Atrial fibrillation no longer present Myocardial infarct finding still present Electronically Signed On 03-08-2025 23:01:13 CDT by ROMY FERRO [email or web address]
--- NOTE | 2025-03-04 13:01 | P.PN_ITS ---
Subjective 2 Subjective: Patient had successful JM cardioversion. Now in sinus rhythm Vitals/I&O/Wt Last Vital Signs Temp 98.0 F 03/04/25 08:00 Pulse 94 03/04/25 11:04 Resp 18 03/04/25 11:04 BP 177/109 03/04/25 08:52 Pulse Ox 98 03/04/25 11:04 O2 Del Method Nasal Cannula 03/04/25 11:04 O2 Flow Rate 2 03/04/25 11:04 FiO2 35 03/04/25 07:35 03/03/25 03/04/25 03/04/25 22:59 06:59 14:59 Output Total 1050 / 2100 950 / 3050 750 / 750 Balance -1050 / -1331.073 -950 / -2281.073 -750 / -750 Weight last 48 hrs Weight 204 lb 14.4 oz Weight 209 lb Physical Exam 2 Narrative: GENERAL: Patient is alert, awake and oriented x3. [] NECK: No jugular vein distension. [] HEENT: No cyanosis. No icterus. No pallor. [] HEART: Regular S1 and S2. No murmur, rub or gallop. [] LUNGS: Clear to auscultate bilaterally. [] CENTRAL NERVOUS SYSTEM: Grossly nonfocal. [] EXTREMITIES: Lower extremities with 1+ edema bilaterally Urinary Catheter Management: Moy: Cath Placed During This Visit: yes Reason for Continuing Indwelling Catheter: Other Urinary Catheter Date of Insertion: 02/27/25 Urinary Catheter Time of Insertion: 19:49 Data 03/04/25 07:01 03/04/25 07:01 A&P Assessment and plan (1) Atrial fibrillation with RVR: (2) Benign essential HTN: (3) CAD (coronary artery disease): (4) Anticoagulation adequate with anticoagulant therapy: (5) Obstructive sleep apnea: (6) Chronic kidney disease: (7) Pulmonary HTN: Plan Patient is overall stable. Continue Eliquis. As patient is in sinus rhythm, can stop digoxin. Continue amiodarone. LFTs elevated, recheck and if do not improve prior to discharge, may need to stop amiodarone. Thank you for involving us with care of this patient. Will continue to follow. Please call with questions PDMP PDMP Reviewed: Not Reviewed Attestations 2 Medical Necessity Statement*: Care expected to cross 2 midnights. Coding Level of Care Code Acute Code for [facility] Diagnoses Atrial fibrillation with RVR I48.91 Benign essential HTN I10 CAD (coronary artery disease) I25.10 Anticoagulation adequate with anticoagulant therapy Z79.01 Obstructive sleep apnea G47.33 Chronic kidney disease N18.9 Pulmonary HTN I27.20
--- NOTE | 2025-03-04 13:49 | PC.NURSE ---
report given for transfer to csu
--- NOTE | 2025-03-04 14:21 | PC.NURSE ---
Patient returns to CSU from ICU JM/cardioversion at 1415.
--- NOTE | 2025-03-04 15:14 | P.PN_ITS ---
Subjective 2 Subjective: patient underwent JM cardioversion today following which she is now in sinus rhythm Medications: Reviewed: Yes Vitals/I&O/Wt Last Vital Signs Temp 98.0 F 03/04/25 08:00 Pulse 90 03/04/25 15:13 Resp 16 03/04/25 15:13 BP 177/109 03/04/25 13:30 Pulse Ox 98 03/04/25 15:13 O2 Del Method Nasal Cannula 03/04/25 15:13 O2 Flow Rate 2 03/04/25 15:13 FiO2 35 03/04/25 07:35 03/04/25 03/04/25 03/04/25 06:59 14:59 22:59 Intake Total 300 / 300 Output Total 950 / 3050 750 / 750 Balance -950 / -2281.073 -450 / -450 Weight last 48 hrs Weight 92.941 kg Weight 94.801 kg Physical Exam 2 Narrative: General: No acute distress, AO x3 HEENT: PERRLA, pupils bilaterally equal and reactive, pallors not present Chest: Normal vesicular breath sounds, no added sounds, equal good air entry bilaterally CVS: S1-S2 regular, no murmurs, no tachycardia, no gallops, no rubs Abdomen: Soft, nontender, no organomegaly, bowel sounds present Neuro: No focal deficits, no facial deformity, AO x3, power 5/5 in all limbs Extremities: Lower extremity edema is improving. Urinary Catheter Management: Moy: Cath Placed During This Visit: yes Reason for Continuing Indwelling Catheter: Other Urinary Catheter Date of Insertion: 02/27/25 Urinary Catheter Time of Insertion: 19:49 Data 03/04/25 07:01 03/04/25 07:01 A&P Assessment and plan (1) Hyperkalemia: Hyperkalemia with potassium of 7.8 Insulin 10 units IV push and dextrose to go along Albuterol 2.5 mg inhalation now Kayexalate 15 g p.o. now Calcium gluconate being given in the emergency room currently. serial potassium check at 7 pm (2) COPD exacerbation: 69-year-old lady brought to the emergency room, unable to provide much history, however noted to be tachypneic, struggling to complete sentences, currently on 4 L/min supplemental O2 at the time of this exam. Check respiratory viral panel Chest x-ray without any infiltrates. Showing central pulmonary vascular congestive changes Methylprednisolone 40 mg IV every 8 hours DuoNeb every 6 hour, budesonide twice daily inhalation Pulmonary toilet with incentive spirometry flutter valve. Unlikely PE as patient is on Eliquis chronically (3) Diastolic heart failure: Acute on chronic diastolic heart failure exacerbation Patient has lower extremity pitting edema and elevated BNP. Chest x-ray showing signs of pulmonary vascular congestion Lasix 40 mg IV now Closely monitor urine output and kidney function, further doses of Lasix to be based off of response to current dose. Last echocardiogram from January 2023 showing LVEF of 68%, mild LVH, no regional wall motion abnormalities, thickened mitral valve. There was estimated PASP of 58 mmHg at the time.Evidence of pulmonary hypertension. Baseline troponin at 22, Downtrending at 2 hours at 17, unlikely ACS (4) Atrial fibrillation: Rate controlled Continue home dose of metoprolol (5) HIV disease: On Biktarvy chronically States that she has not had a lab check in a while. Check CD4 count and viral load Continue Biktarvy for hospital use Plan DVT prophylaxis: Eliquis 5 mg twice daily Full code February 28, 2025 Respiratory status is better today. Patient is currently on 2 L/min supplemental O2. Went into A-fib with RVR overnight for which she is currently started on amiodarone infusion. At the time of this assessment heart rate recorded is at 109/min in A-fib. Continue amiodarone infusion. Restart home dose of metoprolol 100 mg daily as patient takes at home. Continue IV steroids, scheduled nebulization for COPD exacerbation.She received Lasix 40 mg IV yesterday following which she made nearly 4 L of urine output. Resume her home dose of Lasix oral 40 mg p.o. daily. Lower extremity edema is still noted however better compared to yesterday's exam. Transferred from ICU to [facility]SU. March 01, 2025 Patient has diffuse wheezing on exam today. States that she feels its harder to breathe. Increase methylprednisolone to 80 mg IV every 8 hours. Additionally will add digoxin 500 mcg x 1 followed by 250 mcg 6 hours later and then to 50 mcg every 12 hours. Patient's lower extremity edema is much improved compared to previously. Creatinine is improved at 1.0. Urine output 2900 cc. Net -3800 cc since admission. Continue metoprolol 100 mg p.o. daily. If A-fib fails to respond to the above measures, will consult cardiology. March 02, 2025 Wheezing is better on exam today. Will continue methylprednisolone 80 mg IV every 8 hours today. Digoxin was added yesterday however patient continues to be in A-fib and spite of being on amiodarone infusion, digoxin load yesterday and being on p.o. metoprolol. Increase oral metoprolol to 150 mg daily. Cardiology consult. Will resume her home dose of lisinopril now that creatinine has improved. She is overall net -15 L since admission. Monitor bicarb levels closely, trending towards alkalosis now with bicarb at 30 today. Reduce Lasix to 20 mg p.o. daily. Will aim to titrate steroids over the next [address]. [address] of the chest today without contrast to assess for any atypical infection such as pneumocystis pneumonia given that patient has underlying HIV without any additionally for count on file. Please have been requested from Dr. Holt's office in [place]. Patient's continuing to get more and respiratory discomfort seems out of proportion with clinical exam now that pulmonary edema and breathing are both improving. This raises suspicion for an atypical process such as PJP. Less likely to be PE given patient is chronically on Eliquis. March 03, 2025 Clinically better today. Transition IV methylprednisolone to oral prednisone 60 mg p.o. twice daily. Patient's heart rate is better controlled. Currently between 90-100. Will increase metoprolol further today to maximum dose of 200 mg p.o. daily. Net -19 L overall. Clinically euvolemic now. HIV viral load is undetectable. CD4 count is less than 200 at 196. Will hold off on adding any Bactrim prophylaxis until serial recheck in [address] chest performed yesterday showed small right and trace left pleural effusions without any consolidative airspace disease.dilated main pulmonary artery noted concerning for pulmonary hypertension. Creatinine is stable at 1.0. Low potassium at 3.4, repleted. March 04, 2025 Respiratory status is much improved, optimized now. She is s/p cardioversion JM with 200J today with conversion to sinus rhythm @ 70bpm at this time. Felipe continue to monitor. Planed discharge home next 24 hrs if remains stable from cardiology standpoint PDMP PDMP Reviewed: Last Reviewed 05/30/25 13:54 by Sary Zavala MD Attestations 2 Medical Necessity Statement*: s/p cardioversion today Coding Level of Care Code Acute Code for Chg Fwd Diagnoses Hyperkalemia E87.5 COPD exacerbation J44.1 Acute on chronic diastolic heart failure I50.33 Heart failure chronicity: acute on chronic Paroxysmal atrial fibrillation I48.0 Atrial fibrillation type: paroxysmal HIV disease B20
[2025-03-04] MEDS: NON-FORMULARY MEDICATION (Bictegrav-Emtricit-Tenofov Ala [Biktarvy] 50-200-25 mg tablet) 1 EACH PO (20:12)
[2025-03-05] VITALS (7 sets, daily range): BP systolic 122–186; BP diastolic 80–104; PULSE 85–98; RESP 13–24; TEMP 36.1–36.5; O2SAT 91–97
[2025-03-05] MEDS: nitroglycerin 1 gm/inch oint Pkt 1 INCH TOPICAL ×2 (01:24→07:28)
[2025-03-05] MEDS: ipratropium 0.5 mg/2.5 mL Neb INHALATION ×2 (04:14→07:31)
[2025-03-05] MEDS: levalbuterol 0.63 mg/3 mL Neb INHALATION ×2 (04:14→07:31)
[2025-03-05] MEDS: atorvastatin 40 mg Tablet 80 MG PO (05:10)
[2025-03-05] MEDS: buPROPion XL (24 HR) 300 mg Tablet PO (05:10)
[2025-03-05] MEDS: sertraline 100 mg Tablet PO (05:10)
[2025-03-05 05:42] LABS: Basophils % 0.1 %; Hematocrit 46.5 % (36-47); Lymphocytes # 0.9 10^3/uL (0.8-4.8); Lymphocytes % 7.8 %; Mean Corpuscular HGB Conc 31.2 g/dL (30-55); Mean Corpuscular Hemoglobin 28.2 pg (27-33); Mean Corpuscular Volume 90.3 fl (85-98); Monocytes # 0.9 10^3/uL (0.2-0.9); Monocytes % 7.6 %; Neutrophils # 9.56 10^3/uL (1.8-7.7); Neutrophils % 83.9 %; Nucleated Red Blood Cells % 0 %; Platelet Count 223 10^3/cmm (157-399); Red Blood Count 5.15 10^6/uL (3.85-5.65)
[2025-03-05 06:00] LABS: Alanine Aminotransferase 71 U/L (0-33); Albumin Level 3.8 g/dL (3.5-5.2); Alkaline Phosphatase 233 U/L (35-105); Aspartate Amino Transferase 38 U/L (0-32); Blood Urea Nitrogen 25 mg/dL (8-23); Calcium 9.3 mg/dL (8.5-10.5); Carbon Dioxide 31 mmol/L (22-29); Creatinine Clr Calc Pharmacy 75.8148; Globulin 2.9 g/dL (1.3-4.6); Glomerular Filtration Rate 83.5 mL/min (90-130); Glucose 221 mg/dL (65-115); Total Bilirubin 0.7 mg/dL (0.15-1.2); Total Protein 6.7 g/dL (6.6-8.7)
[2025-03-05 06:30] LABS: Anion Gap 14.9 (5-19); Chloride 97 mmol/L (98-107); Osmolality Calculated 299 mOsm/kg (285-295); Potassium 3.9 mmol/L (3.5-5.1); Sodium 139 mmol/L (136-145)
[2025-03-05] MEDS: lisinopril 10 mg Tablet 20 MG PO (07:28)
[2025-03-05] MEDS: budesonide 0.5 mg/2 mL Neb INHALATION (07:31)
[2025-03-05] MEDS: TRAMadol 50 mg Tablet PO ×2 (07:33→12:56)
[2025-03-05] MEDS: azithromycin 250 mg Tablet 500 MG PO (08:27)
[2025-03-05] MEDS: amiodarone 200 mg Tablet 400 MG PO (08:27)
[2025-03-05] MEDS: metoprolol succinate ER (24 HR) 100 mg Tablet 200 MG PO (08:28)
[2025-03-05] MEDS: predniSONE 20 mg Tablet 40 MG PO (08:28)
[2025-03-05] MEDS: gabapentin 300 mg Capsule 900 MG PO (08:28)
[2025-03-05] MEDS: aspirin 81 mg EC Tablet PO (08:28)
[2025-03-05] MEDS: apixaban 5 mg Tablet PO (08:28)
[2025-03-05] MEDS: pantoprazole DR 40 mg Tablet PO (08:28)
[2025-03-05] MEDS: nicotine 21 mg Patch 1 PATCH TRANSDERMA (08:28)
[2025-03-05] MEDS: lactulose oral liq 20 gm/30 mL UDC 10 GM PO (08:29)
[2025-03-05] MEDS: amiodarone 200 mg Tablet PO (09:41)
[2025-03-05] MEDS: FUROsemide 40 mg Tablet 20 MG PO (09:41)
[2025-03-05] MEDS: cefTRIAXone 1,000 mg SDV 1000 MG IVP (09:41)
--- NOTE | 2025-03-05 12:14 | PM.DCS ---
Discharge Providers Date of Admission: 02/27/25 17:34 Date of Discharge: March 05, 2025 Attending Provider at Admission: Sary Zavala MD Attending Provider at Discharge: Sary Zavala MD Primary Care Provider: Alexa Ayers APN Diagnoses at Discharge Discharge Diagnosis (1) Hyperkalemia: Status: Acute (2) COPD exacerbation: Status: Resolved (3) Diastolic heart failure: Status: Acute Qualifiers: Heart failure chronicity: acute on chronic Qualified Code(s): I50.33 - Acute on chronic diastolic (congestive) heart failure (4) Atrial fibrillation: Status: Acute Qualifiers: Atrial fibrillation type: paroxysmal Qualified Code(s): I48.0 - Paroxysmal atrial fibrillation (5) HIV disease: Status: Acute Reason for Visit Reason for Visit: SOB Hospital Course Hospital Course Katie Andrews is a 69 year old female with a past medical history of COPD, A-fib, on anticoagulation chronically, HIV on Biktarvy, followed by Dr. Wiggins at [place] who presented to the emergency room today complaining of generalized pain. She was found to have severe hyperkalemia with a potassium of 7.8. She received treatment with insulin dextrose and Kayexalate along with calcium gluconate. The hyperkalemia resolved quickly, however thereafter her course was complicated by a COPD exacerbation for which she required scheduled nebulization and IV steroids. She had evidence of acute on chronic diastolic heart failure for which she received diuresis with IV Lasix, transition to oral Lasix at the time of discharge. Her lower extremity swelling is much improved. Pulmonary edema has resolved. She is net -25 L during the admission course. Additionally course was complicated by A-fib with RVR that failed to respond appropriately to IV amiodarone, IV digoxin and increasing doses of p.o. metoprolol. IV Cardizem did not have a significant effect either. Eventually she underwent JM cardioversion on March 04, 2025 and tolerated this well. Overall she is clinically much improved compared to admission and is being discharged today in improved condition. New medications include amiodarone 200 mg p.o. twice daily over the next week, dose to be reduced to 200 mg p.o. daily after 1 week. Additionally metoprolol has been uptitrated to 200 mg p.o. daily. Digoxin has been discontinued to minimize risk of bradycardia. His Lasix at discharge is at 20 mg p.o. daily. Patient stated that she is no longer able to travel to [place] for HIV care, would like to transition care locally for which she has been provided a referral to [facility] infectious disease. She was noted to have significant dental caries and periodontitis around her right molar. A referral provided to the dentist at discharge. Oral Augmentin added for this reason. Physical Exam Narrative: General: No acute distress, AO x3 HEENT: PERRLA, pupils bilaterally equal and reactive, pallors not present Chest: Normal vesicular breath sounds, no added sounds, equal good air entry bilaterally CVS: S1-S2 regular, no murmurs, no tachycardia, no gallops, no rubs Abdomen: Soft, nontender, no organomegaly, bowel sounds present Neuro: No focal deficits, no facial deformity, AO x3, power 5/5 in all limbs Extremities: No lower extremity edema clubbing or cyanosis. Urinary Catheter Management: Moy: Cath Placed During This Visit: yes, but has since been removed by the nurse Reason for Continuing Indwelling Catheter: Accurate Measurement of Urinary Output in Critically Ill Patients Urinary Catheter Date of Insertion: 02/27/25 Urinary Catheter Time of Insertion: 19:49 Date Urinary Catheter Removed: 03/05/25 Time Urinary Catheter Discontinued: 11:52 Discharge Data Studies Completed and Pending Completed Studies During Hospitalization Category Date Time Status CT chest wo con [id number] Routine Cat Scan 03/03/25 12:23 Completed XR chest 1V portable [id number] Stat Exams 02/27/25 15:52 Completed Pending at discharge Category Date [place] [id number] Routine Ultrasound 03/04/25 11:00 Taken Radiology Impressions Chest X-Ray 02/27/25 15:52 IMPRESSION: As above. Chest CT 03/03/25 12:23 IMPRESSION: 1. Small right and trace left pleural effusions with adjacent compressive atelectasis. No consolidative airspace disease or evidence to suggest pneumonitis. 2. Mild mosaic attenuation of the lungs is again present. Findings are nonspecific but can be seen with air trapping from chronic small airways disease among other etiologies. 3. Dilated main pulmonary artery can be seen with pulmonary arterial hypertension. Laboratory Results WBC 11.40 10^3/uL (3.29-11.43) 03/05/25 05:01 Corrected WBC Cancelled 03/04/25 05:34 RBC 5.15 10^6/uL (3.85-5.65) 03/05/25 05:01 Hgb 14.50 g/dL (11.27-16.99) 03/05/25 05:01 Hct 46.5 % (36-47) 03/05/25 05:01 MCV 90.3 fl (85-98) 03/05/25 05:01 MCH 28.2 pg (27-33) 03/05/25 05:01 MCHC 31.2 g/dL (30-55) 03/05/25 05:01 RDW 15.0 % (12.1-15.1) 03/05/25 05:01 Plt Count 223 10^3/cmm (157-399) 03/05/25 05:01 MPV 9.0 fL (7.4-10.4) 03/05/25 05:01 Gran % Cancelled 03/04/25 05:34 Neut % (Auto) 83.9 % 03/05/25 05:01 Lymph % (Auto) 7.8 % 03/05/25 05:01 [place] % (Auto) 7.6 % 03/05/25 05:01 Eos % (Auto) 0.0 % 03/05/25 05:01 Baso % (Auto) 0.1 % 03/05/25 05:01 Neut # (Auto) 9.56 10^3/uL (1.8-7.7) H 03/05/25 05:01 Lymph # (Auto) 0.9 10^3/uL (0.8-4.8) 03/05/25 05:01 [place] # (Auto) 0.9 10^3/uL (0.2-0.9) 03/05/25 05:01 Eos # (Auto) 0.0 10^3/uL (0.0-0.8) 03/05/25 05:01 Baso # (Auto) 0.0 10^3/uL (0.0-0.1) 03/05/25 05:01 Absolute Gran (auto) Cancelled 03/04/25 05:34 Absolute Lymphs (auto) 547 cells/uL (850-3900) L 03/01/25 04:12 Nucleated RBC % (auto) 0 % 03/05/25 05:01 Nucleated RBCs # 0.0 /100WBC 03/05/25 05:01 PT 20.60 SECONDS (12.1-14.9) H 02/27/25 16:48 INR 1.65 (0.8-1.2) H 02/27/25 16:48 Specimen Type Arterial 02/27/25 16:09 Sample Site Radial, right 02/27/25 16:09 ABG pH 7.26 (7.35-7.45) L 02/27/25 16:09 ABG pCO2 52.6 mmHg (35-45) H 02/27/25 16:09 ABG pO2 80.7 mmHg (80.0-100.0) 02/27/25 16:09 ABG PO2/FiO2 Ratio 252 02/27/25 16:09 ABG HCO3 23.5 mmol/L (22-26) 02/27/25 16:09 ABG Base Excess -4.3 mmol/L (-2.0-2.0) L 02/27/25 16:09 Eddie Test Pos 02/27/25 16:09 Hematocrit 43.5 % (37-47) 02/27/25 16:09 Hgb O2 Saturation 90.9 % (95-100) L 02/27/25 16:09 Carboxyhemoglobin 3.5 %THgb (0.4-20.1) 02/27/25 16:09 Methemoglobin 1.0 % (0.4-1.5) 02/27/25 16:09 Total Hemoglobin 14.2 g/dL (12-16) 02/27/25 16:09 O2 Delivery Device Nc 02/27/25 16:09 O2 Liters/Min 3.0 % 02/27/25 16:09 FiO2 32.0 % 02/27/25 16:09 Appeals And Generalist Clerk ID Cak 02/27/25 16:09 Sodium 139 mmol/L (136-145) 03/05/25 05:01 Potassium 3.9 mmol/L (3.5-5.1) 03/05/25 05:01 Chloride 97 mmol/L (98-107) L 03/05/25 05:01 Carbon Dioxide 31 mmol/L (22-29) H 03/05/25 05:01 Anion Gap 14.9 (5-19) 03/05/25 05:01 BUN 25 mg/dL (8-23) H 03/05/25 05:01 Creatinine 0.7 mg/dL (0.5-0.9) 03/05/25 05:01 GFR Calculation 83.5 mL/min (90-130) L 03/05/25 05:01 Glucose 221 mg/dL (65-115) H 03/05/25 05:01 POC Glucose 262 mg/dL (70-110) H 03/02/25 18:31 Calculated Osmolality 299 mOsm/kg (285-295) H 03/05/25 05:01 Calcium 9.3 mg/dL (8.5-10.5) 03/05/25 05:01 Magnesium 1.9 mg/dL (1.7-2.3) 02/28/25 03:24 Total Bilirubin 0.7 mg/dL (0.15-1.2) 03/05/25 05:01 AST 38 U/L (0-32) H 03/05/25 05:01 ALT 71 U/L (0-33) H 03/05/25 05:01 Alkaline Phosphatase 233 U/L (35-105) H 03/05/25 05:01 Troponin T Baseline 13 ng/L (0-10) H 03/01/25 19:24 Troponin T 120 Minute 12.03 ng/L (0-10) H 03/01/25 20:29 Delta Troponin T -0.97 ABS# (0-10) L 03/01/25 20:29 Troponin T Hi Sens 6Hr 12.24 ng/L (0-10) H 03/02/25 01:35 Troponin T Hi Sens 6Hr Delta -0.76 ng/L (0-12) L 03/02/25 01:35 NT-Pro-B Natriuret Pep 2235 pg/mL (0-125) H 02/27/25 16:48 Total Protein 6.7 g/dL (6.6-8.7) 03/05/25 05:01 Albumin 3.8 g/dL (3.5-5.2) 03/05/25 05:01 Globulin 2.9 g/dL (1.3-4.6) 03/05/25 05:01 Lymphocyte Subset Cmmnt Not Reportable 03/01/25 04:12 % CD3/CD4 Cells 35 % (30-61) 03/01/25 04:12 Absolute CD4 Count 193 cells/uL (490-1740) L 03/01/25 04:12 CD4/CD8 Ratio 1.61 (0.86-5.00) 03/01/25 04:12 % CD8 Cells 22 % (12-42) 03/01/25 04:12 Absolute CD8 Count 120 cells/uL (180-1170) L 03/01/25 04:12 Adenovirus (PCR) Not detected (NOT DETECT) 02/28/25 08:52 C. pneumoniae DNA (PCR) Not detected (NOT DETECT) 02/28/25 08:52 Coronavirus 229E (PCR) Not detected (NOT DETECT) 02/28/25 08:52 HIV-1 RNA copies/mL Not detected (NOT DETECTED) 02/28/25 03:24 HIV-1 RNA (PCR) log10 Not detected copies/mL (NOT DETECTED) 02/28/25 03:24 Human Metapneumovir PCR Not detected (NOT DETECT) 02/28/25 08:52 Influenza A (H1) PCR Not detected (NOT DETECT) 02/28/25 08:52 Influ A (H1/09) PCR Not detected (NOT DETECT) 02/28/25 08:52 Influenza A (H3) PCR Not detected (NOT DETECT) 02/28/25 08:52 Influenza Type A (PCR) Not detected (NOT DETECT) 02/28/25 08:52 Influenza Type B (PCR) Not detected (NOT DETECT) 02/28/25 08:52 M. pneumoniae (PCR) Not detected (NOT DETECT) 02/28/25 08:52 Parainfluenza 1 (PCR) Not detected (NOT DETECT) 02/28/25 08:52 Parainfluenza 2 (PCR) Not detected (NOT DETECT) 02/28/25 08:52 Parainfluenza 3 (PCR) Not detected (NOT DETECT) 02/28/25 08:52 Parainfluenza 4 (PCR) Not detected (NOT DETECT) 02/28/25 08:52 RSV Type A (PCR) Not detected (NOT DETECT) 02/28/25 08:52 RSV Type B (PCR) Not detected (NOT DETECT) 02/28/25 08:52 Entero/Rhino (PCR) Not detected (NOT DETECT) 02/28/25 08:52 SARS-CoV-2 (PCR) Not detected (NOT DETECT) 02/28/25 08:52 Misc Test Reference Cancelled 03/01/25 04:12 Vitals Last Vital Signs Temp 97.3 F L 03/05/25 11:54 Pulse 85 03/05/25 11:54 Resp 18 03/05/25 11:54 BP 186/102 03/05/25 11:54 Pulse Ox 93 03/05/25 11:54 O2 Del Method Nasal Cannula 03/05/25 11:54 O2 Flow Rate 2 03/05/25 11:54 FiO2 30 03/05/25 07:36 Discharge Plan Discharge Patient Disposition: Home Condition: Stable Prescriptions: New amiodarone [Pacerone] 200 mg Tablet 200 mg PO BID 30 Days Qty: 60 0RF prednisone 20 mg Tablet See Taper PO DAILY 5 Days Qty: 5 0RF Taper: predniSONE 60-10 60 mg Daily for 2 Days and 0 Hour 50 mg Daily for 2 Days and 0 Hour 40 mg Daily for 2 Days and 0 Hour 30 mg Daily for 2 Days and 0 Hour 20 mg Daily for 2 Days and 0 Hour 10 mg Daily for 2 Days and 0 Hour amoxicillin-pot clavulanate 875-125 mg tablet 1 tab PO BID Qty: 10 0RF metoprolol succinate 100 mg Tablet Extended Release 24 Hr 200 mg PO DAILY 30 Days Qty: 30 0RF Continued Eliquis 5 mg tablet 5 mg PO BID aripiprazole [Abilify] 15 mg tablet 15 mg PO QAM sertraline 100 mg tablet 100 mg PO QAM atorvastatin 80 mg tablet 80 mg PO QAM albuterol sulfate 90 mcg/actuation HFA aerosol inhaler 2 puff inhalation QID PRN (Reason: shortness of breath or wheezing) fluticasone propionate 50 mcg/actuation spray,suspension 1 spray INTRANASAL DAILY metformin 500 mg tablet 500 mg PO QAM Rx Instructions: With breakfast Trelegy Ellipta 100-62.5-25 mcg blister with device 1 inh INHALATION DAILY aspirin 81 mg tablet,delayed release (DR/EC) 81 mg PO DAILY Qty: 30 0RF potassium chloride 8 mEq tablet extended release 16 meq PO BID cetirizine 10 mg tablet 10 mg PO DAILY PRN (Reason: Allergy Symptoms) bupropion HCl 300 mg tablet extended release 24 hr 300 mg PO QAM famotidine 40 mg tablet 40 mg PO BEDTIME Biktarvy 50-200-25 mg tablet 1 tab PO BEDTIME tramadol 50 mg tablet 50 - 100 mg PO Q4H MDD 6 tabs PRN (Reason: Pain) metoprolol succinate 100 mg tablet extended release 24 hr 100 mg PO QPM lisinopril 10 mg tablet 10 mg PO DAILY celecoxib 100 mg capsule 100 mg PO DAILY acetaminophen [Tylenol Ex Str Rapid Release] 500 mg Tablet 1,000 mg PO Q6H PRN (Reason: Pain) methocarbamol 750 mg tablet 750 mg PO TID PRN (Reason: muscle spasm ) gabapentin 300 mg capsule 600 mg PO BID Janumet 50-500 mg tablet 1 tab PO BID nitroglycerin [Nitrostat] 0.4 mg Tablet, Sublingual 0.4 mg SUBLINGUAL Q5M PRN (Reason: Chest Pain) 30 Days Qty: 30 0RF Rx Instructions: do not exceed 3 doses per episode Changed furosemide 20 mg tablet 20 mg PO QAM Qty: 60 0RF Discharge Orders: Discharge Order (Routine); Ordered 03/05/25 Ordered By: Sary Zavala Referrals: [facility] [Other] - 1 week Referral Note: dental caries, periodontitis [facility] [Other] Referral Note: dental caries, periodontitis [facility] [Provider Group, Infectious Disease] - 03/21/25 10:00 am Referral Note: HIV Ayers,CECY Liu [Primary Care Provider, Nurse Practitioner] - 03/07/25 1:40 pm Patient Instructions: Atrial Fibrillation, Prednisone (By mouth), Amoxicillin (By mouth) (Amoxicot, Amoxil, Amoxil Pediatric, Trimox,..., Amiodarone (By mouth) (Cordarone, Pacerone), Heart Failure (DC), Hyperkalemia (DC), HIV Infection (DC), Opioid Safety Discharge Attestations Time Spent in Discharge Care*: greater than 30 min Quality Metrics Clinical Quality Measures [ No reported AMI, CVA or VTE this stay] Coding Level of Care Code Acute Code for [facility] Fwd Diagnoses Hyperkalemia E87.5 COPD exacerbation J44.1 Acute on chronic diastolic heart failure I50.33 Heart failure chronicity: acute on chronic Paroxysmal atrial fibrillation I48.0 Atrial fibrillation type: paroxysmal HIV disease B20
--- NOTE | 2025-03-05 12:31 | PC.NURSE ---
Provider updated on blood pressure. Order for hydralazine 10mg IVP is given and placed.
[2025-03-05] MEDS: hyDRALAzine 20 mg/mL INJ 1 mL 10 MG IVP (12:45)
--- NOTE | 2025-03-05 13:03 | PC.NURSE ---
Patient's discharge is pending for her blood pressure to lower into normal range and for patient to urinate, after her stevens was removed. Patient states that she does not have a ride available to her.
--- NOTE | 2025-03-05 14:25 | P.PN_ITS ---
Vitals/I&O/Wt Last Vital Signs Temp 97.3 F L 03/05/25 11:54 Pulse 86 03/05/25 13:36 Resp 18 03/05/25 11:54 BP 122/80 03/05/25 13:36 Pulse Ox 93 03/05/25 11:54 O2 Del Method Nasal Cannula 03/05/25 11:54 O2 Flow Rate 2 03/05/25 11:54 FiO2 30 03/05/25 07:36 03/04/25 03/05/25 03/05/25 22:59 06:59 14:59 Intake Total 240 / 780 600 / 1380 480 / 480 Output Total 1700 / 2450 1300 / 3750 1000 / 1000 Balance -1460 / -1670 -700 / -2370 -520 / -520 Weight last 48 hrs Weight 207 lb Weight 204 lb 14.4 oz Physical Exam 2 Urinary Catheter Management: Moy: Cath Placed During This Visit: yes, but has since been removed by the nurse Reason for Continuing Indwelling Catheter: Accurate Measurement of Urinary Output in Critically Ill Patients Urinary Catheter Date of Insertion: 02/27/25 Urinary Catheter Time of Insertion: 19:49 Date Urinary Catheter Removed: 03/05/25 Time Urinary Catheter Discontinued: 11:52 Data 03/05/25 05:01 03/05/25 05:01 A&P PDMP PDMP Reviewed: Not Reviewed Coding Level of Care Code Acute Code for Chg Fwd
== END 2025-03-05 16:32 | disposition home or self-care (01) | DRG 190 ==
LOC: ER 17:43 → ICU 17:48 → CSU 02-28 17:30 → ICU 03-04 11:23 → CSU 03-04 13:59
PROVIDERS: Internal Medicine; Admitting Provider Student in an Organized Health Care Education/Training Program; Emergency Provider Emergency Medicine; PCP Nurse Practitioner Family; Visit Provider Student in an Organized Health Care Education/Training Program
DX: J44.1 Chronic obstructive pulmonary disease with (acute) exacerbation (principal); I50.33 Acute on chronic diastolic (congestive) heart failure; B20 Human immunodeficiency virus [HIV] disease; I13.0 Hypertensive heart and chronic kidney disease with heart failure and stage 1 through stage 4 chronic kidney disease, or unspecified chronic kidney disease; E87.5 Hyperkalemia; I48.0 Paroxysmal atrial fibrillation; Z79.01 Long term (current) use of anticoagulants; K05.30 Chronic periodontitis, unspecified; K02.9 Dental caries, unspecified; F32.A Depression, unspecified; G47.33 Obstructive sleep apnea (adult) (pediatric); N18.9 Chronic kidney disease, unspecified; I25.10 Atherosclerotic heart disease of native coronary artery without angina pectoris; E78.5 Hyperlipidemia, unspecified; I25.2 Old myocardial infarction; Z79.82 Long term (current) use of aspirin; Z87.891 Personal history of nicotine dependence
CPT/HCPCS: 36415; 36416; 36600; 51702; 71045; 71250; 80048; 80053; 82805; 82962; 83735; 83880; 84484; 85025; 85610; 86360; 87486; 87536; 87581; 87633; 93005; 93312; 93320; 93325; 94640; 94660; 94664; 96374; 96375; 96376; 99285; J0283; J0360; J0612; J0696; J1160; J1815; J1938; J2919; J3490; J7030; J7512; J7613; J7614; J7626; J7644; J7799; J9999; Q0144

== ENCOUNTER 2025-03-20 05:04 | Emergency (ER) | payer OTHER, SELFPAY ==
[2025-03-20 05:05] VITALS: BP 113/72; PULSE 99; RESP 16; TEMP 36.5; O2SAT 93; BMI 35.7
--- NOTE | 2025-03-20 05:12 | CTR_ITS ---
PROCEDURE INFORMATION: Exam: CT Cervical Spine Without Contrast Exam date and time: 03/20/2025 5:30 AM Age: 69 years old Clinical indication: Injury or trauma; Blunt trauma; EMS arrival for fall. Patient fell striking head against night stand. Anticoagulated. History of esophageal cancer. ; Additional info: Fall head inj TECHNIQUE: Imaging protocol: Computed tomography of the cervical spine without contrast. Radiation optimization: All CT scans at this facility use at least one of these dose optimization techniques: automated exposure control; mA and/or kV adjustment per patient size (includes targeted exams where dose is matched to clinical indication); or iterative reconstruction. COMPARISON: CT head wo con* [id number] 03/20/2025 5:28 AM RADIATION DOSE METRICS: Total DLP (mGy-cm): 620.01 FINDINGS: Bones: Disc space narrowing and spurring C3 through C6. No lytic or sclerotic bone lesion. Anatomic alignment. Lungs: Lung apices are normal. Soft tissues: Unremarkable. CT/CT cervical spin wo con* [id number] IMPRESSION: No acute cervical spine fracture.
--- NOTE | 2025-03-20 05:12 | CTR_ITS ---
PROCEDURE INFORMATION: Exam: CT Head Without Contrast Exam date and time: 03/20/2025 5:28 AM Age: 69 years old Clinical indication: Injury or trauma; Blunt trauma (contusions or hematomas); EMS arrival for fall. Patient fell striking head against night stand. Anticoagulated. ; Additional info: Fall head inj TECHNIQUE: Imaging protocol: Computed tomography of the head without contrast. Radiation optimization: All CT scans at this facility use at least one of these dose optimization techniques: automated exposure control; mA and/or kV adjustment per patient size (includes targeted exams where dose is matched to clinical indication); or iterative reconstruction. COMPARISON: CT head wo con* [id number] 08/12/2024 4:24 PM RADIATION DOSE METRICS: Total DLP (mGy-cm): 993.74 FINDINGS: Brain: Normal. No hemorrhage. Unremarkable white matter. No mass effect. Cerebral ventricles: No ventriculomegaly. Paranasal sinuses: Visualized sinuses are unremarkable. No fluid levels. Mastoid air cells: Visualized mastoid air cells are well aerated. Bones: Unremarkable. No acute fracture. Soft tissues: Unremarkable. CT/CT head wo con* [id number] IMPRESSION: No acute intracranial abnormality.
--- NOTE | 2025-03-20 05:18 | XRR_ITS ---
PROCEDURE INFORMATION: Exam: XR Left Knee Exam date and time: 03/20/2025 5:17 AM Age: 69 years old Clinical indication: Injury or trauma; Blunt trauma; Left; EMS arrival for ground level fall at home. C/O knee pain. ; Additional info: Fall knee pain TECHNIQUE: Imaging protocol: Radiologic exam of the left knee. Views: 3 views. COMPARISON: CR XR foot LT min 3V* [id number] 12/20/2021 10:57 AM FINDINGS: Bones/joints: Normal. Soft tissues: Normal. XR/XR knee LT 3V* [id number] IMPRESSION: No acute findings.
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
[2025-03-20 06:00] VITALS: BP 131/80; PULSE 100; O2SAT 92
[2025-03-20] MEDS: ketorolac 30 mg/mL INJ IM (06:34)
[2025-03-20 06:35] VITALS: RESP 19; O2SAT 92
[2025-03-20] MEDS: oxyCODONE-APAP 5-325 mg Tablet 2 TAB PO (06:35)
[2025-03-20 07:08] VITALS: BP 125/90; PULSE 99; RESP 16; O2SAT 92
== END 2025-03-20 07:07 | disposition home or self-care (01) ==
PROVIDERS: Emergency Provider Emergency Medicine; PCP Nurse Practitioner Family
DX: S06.0X0A Concussion without loss of consciousness, initial encounter (principal); Z79.01 Long term (current) use of anticoagulants; Z79.82 Long term (current) use of aspirin; Z87.891 Personal history of nicotine dependence; E78.5 Hyperlipidemia, unspecified; J44.9 Chronic obstructive pulmonary disease, unspecified; I25.10 Atherosclerotic heart disease of native coronary artery without angina pectoris; I13.0 Hypertensive heart and chronic kidney disease with heart failure and stage 1 through stage 4 chronic kidney disease, or unspecified chronic kidney disease; N18.9 Chronic kidney disease, unspecified; I50.9 Heart failure, unspecified; W01.190A Fall on same level from slipping, tripping and stumbling with subsequent striking against furniture, initial encounter; M54.2 Cervicalgia; M25.562 Pain in left knee
CPT/HCPCS: 70450; 72125; 73562; 96372; 99284; J1885; J9999

== ENCOUNTER 2025-03-23 21:08 | Inpatient (IN) | payer OTHER, SELFPAY ==
[2025-03-23 21:16] VITALS: BP 94/63; PULSE 65; RESP 18; TEMP 37.1; O2SAT 93; BMI 32.2
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
[2025-03-23 22:04] LABS: Basophils # 0.1 10^3/uL (0.0-0.1); Basophils % 0.5 %; Eosinophils # 0.1 10^3/uL (0.0-0.8); Eosinophils % 0.6 %; Hematocrit 49.9 % (36-47); Lymphocytes # 2.1 10^3/uL (0.8-4.8); Lymphocytes % 16.9 %; Mean Corpuscular HGB Conc 32.9 g/dL (30-55); Mean Corpuscular Hemoglobin 28.6 pg (27-33); Mean Corpuscular Volume 87.1 fl (85-98); Mean Platelet Volume 9.6 fL (7.4-10.4); Monocytes # 1.3 10^3/uL (0.2-0.9); Neutrophils % 71.3 %; Nucleated Red Blood Cells % 0 %; Platelet Count 263 10^3/cmm (157-399); Red Blood Count 5.73 10^6/uL (3.85-5.65); Red Cell Distribution Width 17.9 % (12.1-15.1); White Blood Count 12.64 10^3/uL (3.29-11.43)
[2025-03-23 22:10] VITALS: BP 91/51; PULSE 109; RESP 18; O2SAT 93
[2025-03-23] MEDS: sodium chloride 0.9% 500 ML IV (22:14)
[2025-03-23] MEDS: sodium chloride 0.9% 1,000 ML 999 ML IV (22:17)
[2025-03-23 22:19] LABS: Troponin(5th) Baseline 58 ng/L (0-10)
[2025-03-23 22:45] VITALS: BP 105/61; PULSE 95; RESP 19; O2SAT 94
[2025-03-23 22:46] LABS: Alanine Aminotransferase 30 U/L (0-33); Albumin Level 4.2 g/dL (3.5-5.2); Alkaline Phosphatase 152 U/L (35-105); Aspartate Amino Transferase 27 U/L (0-32); Blood Urea Nitrogen 16 mg/dL (8-23); Calcium 9.7 mg/dL (8.5-10.5); Carbon Dioxide 20 mmol/L (22-29); Chloride 103 mmol/L (98-107); Creatinine Clr Calc Pharmacy 30.3582; Globulin 2.6 g/dL (1.3-4.6); Glomerular Filtration Rate 26.4 mL/min (90-130); Glucose 179 mg/dL (65-115); Osmolality Calculated 294 mOsm/kg (285-295); Sodium 139 mmol/L (136-145); Total Bilirubin 0.8 mg/dL (0.15-1.2); Total Protein 6.8 g/dL (6.6-8.7)
--- NOTE | 2025-03-23 22:50 | XRR_ITS ---
PROCEDURE INFORMATION: Exam: XR Chest Exam date and time: 03/23/2025 10:51 PM Age: 69 years old Clinical indication: Pain; Chest pressure; Additional info: Chest pain TECHNIQUE: Imaging protocol: Radiologic exam of the chest. Views: 1 view. COMPARISON: CT chest con [id number] 03/03/2025 7:54 AM FINDINGS: Lungs: Stable mild interstitial prominence, likely chronic. No pulmonary consolidation. Pleural spaces: No pleural effusion or pneumothorax. Heart/Mediastinum: The heart is magnified. Vasculature: Atherosclerotic calcifications of the aorta are noted. Bones/joints: No acute osseous abnormalities are seen. XR/XR chest 1V portable [id number] IMPRESSION: No acute cardiopulmonary disease.
[2025-03-23 22:52] LABS: Anion Gap 20.3 (5-19); Potassium 4.3 mmol/L (3.5-5.1)
[2025-03-23 23:00] VITALS: BP 103/78; PULSE 105; RESP 20; O2SAT 94
[2025-03-23 23:30] VITALS: BP 101/63; PULSE 105; RESP 18; O2SAT 93
[2025-03-24] VITALS (13 sets, daily range): BP systolic 96–141; BP diastolic 53–86; PULSE 72–110; RESP 15–18; TEMP 36.5–36.8; O2SAT 90–98
[2025-03-24 00:31] LABS: Troponin 5 2HR 52.76 ng/L (0-10)
[2025-03-24 00:35] LABS: Troponin 5 2HR Delta -5.24 ABS# (0-10)
--- NOTE | 2025-03-24 00:39 | ECG_ITS ---
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 Measurements Intervals [place] Rate: 117 P: 0 [place]: 0 QRS: -3 QRSD: 96 T: 20 QT: 343 QTc: 480 Interpretive Statements ATRIAL FIBRILLATION WITH RAPID VENTRICULAR RESPONSE ANTEROSEPTAL MYOCARDIAL INFARCTION , OF INDETERMINATE AGE [40+ ms Q WAVE IN V1-V4] Compared to ECG 03/04/2025 12:25:00 Sinus rhythm no longer present Myocardial infarct finding still present Electronically Signed On 03-26-2025 19:41:21 CDT by Caroline Marin M.D. [email or web address]
--- NOTE | 2025-03-24 01:43 | USCV_ITS ---
Katie Adnrews Age: 69 Gender: F : 1955 Exam Date: 03/24/2025 01:50 Ordering Phys: Karen Puri MD Technologist: JOHN Exam Location: [facility] [place] Indication: Chest pain, history of COPD, long-term smoker, continues smoking, History of Atrial fibrillation, History of HIV BP: 97 / 65 HR: 94 Rhythm: Atrial fibrillation Technical Quality: Adequate MEASUREMENTS (Male / Female) Normal Values 2D ECHO LV Diastolic Diameter PLAX 3.7 cm 4.2 - 5.9 / 3.9 - 5.3 cm IVS Diastolic Thickness 2.0 cm 0.6 - 1.0 / 0.6 - 0.9 cm IVS Systolic Thickness 2.2 cm LVPW Diastolic Thickness 1.6 cm 0.6 - 1.0 / 0.6 - 0.9 cm LVPW Systolic Thickness 2.5 cm LVOT Diameter 1.9 cm LV Ejection Fraction 2D Teich 57.4 % LV Ejection Fraction MOD 4C 46.7 % LV Ejection Fraction MOD 2C 50.5 % LV Ejection Fraction 2C AL 51.7 % LA Diameter 4.0 cm Aorta at Sinotubular Diameter 2.8 cm IVC Diameter 1.3 cm M-MODE LA Ao Ratio MM 1.5 AV Cusp Separation MM 1.4 cm DOPPLER AV Peak Velocity 165.0 cm/s LVOT Peak Velocity 98.0 cm/s AV Area Cont Eq vti 2.1 cm squared AV Area Cont Eq pk 1.8 cm squared MV Peak Velocity 124.0 cm/s MV Area PHT 4.9 cm squared Mitral E to A Ratio 649.0 TV Peak Velocity 259.7 cm/s TR Peak Velocity 272.0 cm/s TR Peak Gradient 29.6 mmHg TV Peak E Velocity 54.0 cm/s PV Peak Velocity 126.0 cm/s FINDINGS Left Ventricle Mild concentric LVH. Hypokinesis of anterior anteroseptal wall segments. Estimated LVEF 40-45%. Diastolic dysfunction not assessed because of the atrial fibrillation. Right Ventricle Normal-sized right ventricle. Mildly reduced RV systolic function. Right Atrium Normal-sized right atrium. Left Atrium Dilated left atrium. Mitral Valve Mildly thickened mitral valve. Mild mitral regurgitation Aortic Valve Mildly thickened aortic valve. Tricuspid Valve Normal tricuspid valve. Mild tricuspid regurgitation. Gradient across tricuspid valve 30 mmHg. PAP 35 mmHg Pulmonic Valve Not well-seen. Mild pulmonary valve regurgitation Pericardium Trace pericardial effusion Aorta Normal size aortic root and proximal ascending aorta. IVC Normal IVC dimension with <50% respiratory change of the inferior vena cava. CONCLUSIONS Moderately reduced LV systolic function. Estimated LVEF of 40 to 45%. Hypokinesis of anterior and anteroseptal wall segments. Mild mitral and tricuspid regurgitation. Mildly elevated right heart and pulmonary pressures (35 mmHg). Caroline Marin MD (Electronically Signed) Final Date: 24 March 2025 12:50 S
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
[2025-03-24] MEDS: sodium chloride 0.9% 500 ML IV (02:01)
[2025-03-24 04:14] LABS: Basophils # 0.1 10^3/uL (0.0-0.1); Basophils % 0.6 %; Eosinophils # 0.1 10^3/uL (0.0-0.8); Eosinophils % 1.4 %; Lymphocytes % 21.3 %; Mean Corpuscular HGB Conc 31.6 g/dL (30-55); Mean Corpuscular Hemoglobin 28.6 pg (27-33); Mean Corpuscular Volume 90.6 fl (85-98); Mean Platelet Volume 9.8 fL (7.4-10.4); Monocytes # 1.1 10^3/uL (0.2-0.9); Monocytes % 11.4 %; Neutrophils # 6.02 10^3/uL (1.8-7.7); Neutrophils % 64.8 %; Nucleated Red Blood Cells % 0 %; Platelet Count 213 10^3/cmm (157-399); Red Blood Count 5.52 10^6/uL (3.85-5.65); Red Cell Distribution Width 18.2 % (12.1-15.1)
--- NOTE | 2025-03-24 04:16 | ECG_ITS ---
[facility] Test Date: 2025-03-24 Pat Name: Katie Andrews Department: Room: ED Gender: Female Manager Mobile: : 1955 Requested By: Gaston Zavala Order Number: [id number] Dunia MD: Caroline Marin M.D. Measurements Intervals [place] Rate: 38 P: 68 NH: 186 QRS: 72 QRSD: 83 T: 51 QT: 502 QTc: 402 Interpretive Statements SINUS BRADYCARDIA NONSPECIFIC ST & T-WAVE ABNORMALITY CRITICAL TEST RESULT Compared to ECG 03/24/2025 00:33:28 T-wave abnormality now present Myocardial infarct finding no longer present Electronically Signed On 03-26-2025 19:40:58 CDT by Caroline Marin M.D. [email or web address]
[2025-03-24] MEDS: morphine 4 mg/mL SDV 1 mL 2 MG IVP (04:22)
[2025-03-24] MEDS: aspirin 325 mg Tablet PO (04:22)
[2025-03-24] MEDS: heparin 5,000 unit/mL INJ 1 mL 5000 UNIT SUBCUT ×2 (04:23→15:04)
[2025-03-24] MEDS: sodium chloride 0.9% 1,000 ML 100 ML IV ×2 (04:23→15:04)
[2025-03-24 04:32] LABS: Troponin 5 6HR 50.63 ng/L (0-10)
[2025-03-24 04:36] LABS: Troponin 5 6HR Delta -7.37 ng/L (0-12)
[2025-03-24 04:47] LABS: Alanine Aminotransferase 27 U/L (0-33); Alkaline Phosphatase 138 U/L (35-105); Anion Gap 16.5 (5-19); Aspartate Amino Transferase 24 U/L (0-32); Blood Urea Nitrogen 19 mg/dL (8-23); Carbon Dioxide 22 mmol/L (22-29); Chloride 108 mmol/L (98-107); Creatinine Clr Calc Pharmacy 30.3582; Globulin 2.3 g/dL (1.3-4.6); Glomerular Filtration Rate 26.4 mL/min (90-130); Glucose 127 mg/dL (65-115); Magnesium 1.6 mg/dL (1.7-2.3); Osmolality Calculated 298 mOsm/kg (285-295); Phosphorus 3.7 mg/dL (2.5-4.5); Potassium 4.5 mmol/L (3.5-5.1); Sodium 142 mmol/L (136-145); Total Bilirubin 0.7 mg/dL (0.15-1.2); Total Protein 6.3 g/dL (6.6-8.7)
--- NOTE | 2025-03-24 04:47 | PC.NURSE ---
EKG transmitted at 04:16 , entered on wrong patient name in error.
[2025-03-24 08:52] LABS: NT Pro B Type Natriuretic Pept 4757 pg/mL (0-125)
--- NOTE | 2025-03-24 10:38 | PC.SOCIAL ---
IMM Updated Updated pt on IMM. no questions voiced. Provided pt a copy. Initialed, dated, & timed a copy & placed in chart.
[2025-03-24] MEDS: docusate sodium 100 mg Capsule PO ×2 (11:00→17:06)
[2025-03-24] MEDS: pantoprazole DR 40 mg Tablet PO (11:00)
[2025-03-24 13:20] LABS: Bilirubin Urine 1+ (Negative); Blood Urine Negative (Negative); Glucose Urine UA Negative (Normal); Ketones Urine Trace (Negative); Leukocyte Esterase Urine Trace (Negative); Nitrate Urine Negative (Negative); Protein Urine 1+ (Negative); Urine Appearance Cloudy (CLEAR); Urine Color Dark Yellow (Yellow)
[2025-03-24 13:23] LABS: Bacteria Urine Trace /hpf; Hyaline Casts Urine 106.34 /lpf; WBC Urine 0-5 /hpf (0-5)
[2025-03-24 13:31] LABS: Urine Random Chloride 44 mmol/L; Urine Random Sodium 33 mmol/L
[2025-03-24 13:36] LABS: Specific Gravity, Urine 1.031 (1.005-1.030); UA Slide Review UA Slide Review Perf
[2025-03-24 13:37] LABS: Add Urine Culture? No; Amorphous Sediment Urine TRACE /hpf; Potassium, Radom Urine 99 mmol/L
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
--- NOTE | 2025-03-24 14:12 | ECG_ITS ---
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 Measurements Intervals [place] Rate: 106 P: 0 IA: 0 QRS: -10 QRSD: 96 T: 35 QT: 353 QTc: 470 Interpretive Statements ATRIAL FIBRILLATION WITH RAPID VENTRICULAR RESPONSE ANTEROSEPTAL MYOCARDIAL INFARCTION , OF INDETERMINATE AGE [40+ ms Q WAVE IN V1-V4] Compared to ECG 03/24/2025 04:16:17 Myocardial infarct finding now present Sinus bradycardia no longer present T-wave abnormality no longer present Electronically Signed On 03-26-2025 19:30:44 CDT by Caroline Marin M.D. [id number] [id number]
[2025-03-24 15:04] LABS: Troponin(5th) Baseline 36 ng/L (0-10)
--- NOTE | 2025-03-24 16:12 | ECG_ITS ---
[facility] Date: 2025-[facility]-24 Pat Name: Katie Andrews Department: Room: 279 Gender: Female Pathology Assistant: : 1955 Requested By: Katie Buenrostro Order Number: [id number] Dunia MD: Caroline Marin M.D. Measurements Intervals [place] Rate: 100 P: 0 PA: 0 QRS: -7 QRSD: 88 T: -2 QT: 350 QTc: 452 Interpretive Statements ATRIAL FIBRILLATION WITH RAPID VENTRICULAR RESPONSE ANTEROSEPTAL MYOCARDIAL INFARCTION , OF INDETERMINATE AGE [40+ ms Q WAVE IN V1-V4] Compared to ECG 03/24/2025 04:41:25 No significant changes Electronically Signed On 03-26-2025 19:38:42 CDT by Caroline Marin M.D. [id number] [id number]
--- NOTE | 2025-03-24 17:00 | P.PN_ITS ---
Subjective 2 Subjective: Admitted overnight. She still has mild chest pain. She denies any dyspnea, orthopnea, palpitations, syncope. She has chronic CHF. Troponin was elevated initially but down trended. EKG did not show any acute ischemic changes. Echocardiogram today showed reduced LVEF of 40 to 45% down from 71% with grade 3 of 4 diastolic dysfunction in 2021. Vitals/I&O/Wt Last Vital Signs Temp 97.7 F 03/24/25 15:40 Pulse 98 03/24/25 15:40 Resp 18 03/24/25 15:40 BP 99/76 03/24/25 15:40 Pulse Ox 94 03/24/25 15:40 O2 Del Method Nasal Cannula 03/24/25 15:40 O2 Flow Rate 2 03/24/25 04:00 03/24/25 03/24/25 03/24/25 06:59 14:59 22:59 Intake Total 1500 / 1500 1500 / 1500 23.333 / 1523.333 Output Total 400 / 400 Balance 1500 / 1500 1100 / 1100 23.333 / 1123.333 Weight last 48 hrs Weight 88.451 kg Weight 85.275 kg Physical Exam 2 Const: COMMON NORMALS: no acute distress and patient oriented x3 HENMT: COMMON NORMALS: normocephalic and atraumatic HEAD & SCALP: n ormocephalic and atraumatic Eye: COMMON NORMALS: Equal, round and reactive pupils present and EOMs intact bilaterally PUPIL: Yes Equal, round and reactive pupils present Neck/C-Spine: COMMON NORMALS: full ROM, supple and no JVD Chest: COMMONS NORMALS: normal inspection of the chest Resp: COMMON NORMALS: normal respiratory effort and clear to auscultation bilaterally AUSCULTATION: clear to auscultation bilaterally Cardio: COMMON NORMALS: no JVD, S1 normal heart sound present, S2 normal heart sound present, No murmurs present (Cardio) and Peripheral pulses 2+ throughout RHYTHM: abnormal rhythm irregularly irregular HEART SOUNDS: S1 normal heart sound present and S2 normal heart sound present PERIPHERAL PULSES: Peripheral pulses 2+ throughout GI: COMMON NORMALS: Normal to inspection, nondistended, normoactive bowel sounds present : COMMON NORMALS: Yes no CVA tenderness BLADDER/KIDNEY EXAM: Yes no CVA tenderness Back/Pelvis: COMMON NORMALS: no CVA tenderness Extremity: COMMON NORMALS: normal to inspection and no pedal edema Neuro: COMMON NORMALS: patient oriented x3 Psych: COMMON NORMALS: cooperative, normal affect and speech normal SPEECH: Yes normal speech Skin: COMMON NORMALS: no rashes or lesions noted GENERAL SKIN EXAM: no rashes or lesions noted Data 03/24/25 04:00 03/24/25 04:00 A&P Assessment and plan (1) Chest pain with high risk for cardiac etiology: Chest pain ? She has history of CAD with stents placed in the proximal to mid LAD ?Stent to the second OM in 2022 ?She is on aspirin and apixaban at home ? Troponin elevated but down trended ? Stress test ordered ? Telemetry monitoring ? Cardiology consulted and recommended aspirin 325 mg daily (2) Acute kidney injury: ? She has CKD stage III with baseline creatinine of 1.0-1.4; creatinine 1.9 on admission ? Holding Lasix and lisinopril for now ? She was on gentle IV hydration but this has been discontinued ? Monitor serum creatinine ? Apixaban decreased to 2.5 mg twice daily until Gentle hydration with normal saline at 100 an hour for patient volume contraction with acute renal failure - This will do for care renal function will resolve to patient baseline normal kidney function - Must hold all medication that had been renal friendly such as metformin next diuretics at the moment next lisinopril, - Repeat chemistry with a hopeful trending down of creatinine (3) Atrial fibrillation: Atrial fibrillation unspecified - Reduced apixaban to 2.5 mg twice daily in setting of her JOSE - Continue metoprolol and amiodarone (4) HIV disease: Continue home antiviral meds (5) Pulmonary HTN: Patient gets on metoprolol continue to follow through and optimize (6) Benign essential HTN: Holding lisinopril losartan given her JOSE (7) CAD (coronary artery disease): (8) Dyslipidemia: Atorvastatin (9) Type 2 diabetes mellitus: Metformin sliding scale insulin (10) COPD (chronic obstructive pulmonary disease): Formulary substitution for home meds (11) Chronic hypoxic respiratory failure, on home oxygen therapy: She uses 2 L/min O2 Plan GI and DVT prophylaxis in place PDMP PDMP Reviewed: Not Reviewed Attestations 2 Medical Necessity Statement*: Patient is continued inpatient care for telemetry monitoring, stress test, and monitoring of renal function Coding Level of Care Code 46683 Diagnoses Chest pain with high risk for cardiac etiology R07.9 Acute kidney injury N17.9 Paroxysmal atrial fibrillation I48.0 Atrial fibrillation type: paroxysmal HIV disease B20 Pulmonary HTN I27.20 Benign essential HTN I10 CAD (coronary artery disease) I25.10 Dyslipidemia E78.5 Type 2 diabetes mellitus E11.9 COPD (chronic obstructive pulmonary disease) J44.9 Chronic hypoxic respiratory failure, on home oxygen therapy J96.11; Z99.81
[2025-03-24] MEDS: gabapentin 300 mg Capsule 600 MG PO (17:06)
[2025-03-24] MEDS: amiodarone 200 mg Tablet PO (17:06)
[2025-03-24 17:14] LABS: Glucose Point of Care 85 mg/dL (70-110)
[2025-03-24] MEDS: apixaban 5 mg Tablet 2.5 MG PO (17:22)
[2025-03-24 17:31] LABS: Troponin 5 2HR 35.99 ng/L (0-10)
[2025-03-24 17:32] LABS: Troponin 5 2HR Delta -0.01 ABS# (0-10)
[2025-03-24] MEDS: TRAMadol 50 mg Tablet PO (18:11)
[2025-03-24] MEDS: ipratropium-albuterol 3 mL Neb INHALATION (20:02)
[2025-03-24] MEDS: budesonide 0.5 mg/2 mL Neb INHALATION (20:02)
[2025-03-24 20:31] LABS: Glucose Point of Care 131 mg/dL (70-110)
[2025-03-24 20:44] LABS: Troponin 5 6HR 33.95 ng/L (0-10); Troponin 5 6HR Delta -2.05 ng/L (0-12)
[2025-03-24] MEDS: famotidine 20 mg Tablet 40 MG PO (21:19)
[2025-03-24] MEDS: sennosides 8.6 mg Tablet 17.2 MG PO (21:20)
--- NOTE | 2025-03-24 22:31 | ECG_ITS ---
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 Measurements Intervals [place] Rate: 96 P: 0 MD: 0 QRS: -7 QRSD: 90 T: -74 QT: 375 QTc: 476 Interpretive Statements ATRIAL FIBRILLATION ANTEROSEPTAL MYOCARDIAL INFARCTION , OF INDETERMINATE AGE [40+ ms Q WAVE IN V1-V4] Compared to ECG 03/24/2025 15:51:38 No significant changes Electronically Signed On 03-26-2025 19:36:15 CDT by Caroline Marin M.D. [email or web address] [id number]
[2025-03-25] VITALS (10 sets, daily range): BP systolic 99–126; BP diastolic 64–85; PULSE 69–103; RESP 17–20; TEMP 36.4–36.6; O2SAT 92–96
--- NOTE | 2025-03-25 05:11 | P.PN_ITS ---
Subjective 2 Subjective: Denies any chest pain at this time. Nursing reports the patient does not have a Biktarvy. She is unable to have anybody bring it to the hospital, and she is unable to have anyone cotton picker operator a prescription and bring it to her. She was told that she will have to miss the dose if she stays in the hospital and she verbalizes understanding. She says she cannot discharge home at this time because she cannot get a ride to come back to the hospital for her stress test. Medications: Reviewed: Yes Vitals/I&O/Wt Last Vital Signs Temp 97.5 F L 03/25/25 04:00 Pulse 99 03/25/25 04:00 Resp 18 03/25/25 04:00 BP 99/64 03/25/25 04:00 Pulse Ox 94 03/25/25 04:00 O2 Del Method Room Air 03/25/25 04:00 O2 Flow Rate 3 03/24/25 23:45 03/24/25 03/24/25 03/25/25 14:59 22:59 06:59 Intake Total 1500 / 1500 263.333 / 1763.333 0 / 1763.333 Output Total 400 / 400 Balance 1100 / 1100 263.333 / 1363.333 0 / 1363.333 Weight last 48 hrs Weight 195 lb 1.6 oz Weight 195 lb Weight 188 lb Physical Exam 2 Narrative: General: Cooperative patient in no apparent distress. Well developed. HEENT: Normocephalic, Atraumatic. External ears normal. Nasal passages patent without drainage. MMM. Heart: RRR. Resp: LCTA. No respiratory distress, no use of accessory muscles. Abd: Soft, non-tender. Non-distended. Extremities: No edema. Skin: No rash or lesions on exposed areas. Neuro: No focal motor or sensory loss. Gait is normal. Data 03/24/25 04:00 03/25/25 05:00 A&P Assessment and plan (1) Chest pain with high risk for cardiac etiology: (2) Acute kidney injury: (3) Atrial fibrillation: (4) HIV disease: (5) Pulmonary HTN: (6) Benign essential HTN: (7) CAD (coronary artery disease): (8) Dyslipidemia: (9) Type 2 diabetes mellitus: (10) COPD (chronic obstructive pulmonary disease): (11) Chronic hypoxic respiratory failure, on home oxygen therapy: Plan 69-year-old female, atrial fibrillation, pulmonary hypertension, CAD, admitted for chest pain. With past medical history of HIV. Continue inpatient monitoring. Cardiology evaluated and no acute intervention needed. Stress test ordered for Thursday. She states that she cannot discharge home at this time due to not having a ride to come back in for testing. Will have to hold HIV medications as they are not available through the pharmacy and she cannot get someone to bring them in. Has a history of COPD, but her oxygen is currently in the 90th percentile on room air. Continue to monitor for now. Continue telemetry. She has atrial fibrillation but her heart rates been controlled. Continue apixaban, metoprolol and amiodarone. CKD. Creatinine currently at 1.1. Recheck a.m. labs. Continue home medications for other chronic problems. Code Status: Full IVF: NS @ 100. DVT PPx: Eliquis GI PPx: Protonix ABx: None Diet: Cardiac Discharge plan: Home when stable. PDMP PDMP Reviewed: Not Reviewed Attestations 2 Medical Necessity Statement*: Will need continued inpatient stay for work up of chest pain, cardiology eval, recheck on labs and prep for stress test on Thursday. Coding Level of Care Code Acute Code for Chg Fwd Moderate MDM includes number and complexity of problems actively addressed during encounter, amount and/or complexity of data reviewed/ordered and described risk of complication, morbidity or mortality of management as documented Diagnoses Chest pain with high risk for cardiac etiology R07.9 Acute kidney injury N17.9 Paroxysmal atrial fibrillation I48.0 Atrial fibrillation type: paroxysmal HIV disease B20 Pulmonary HTN I27.20 Benign essential HTN I10 CAD (coronary artery disease) I25.10 Dyslipidemia E78.5 Type 2 diabetes mellitus E11.9 COPD (chronic obstructive pulmonary disease) J44.9 Chronic hypoxic respiratory failure, on home oxygen therapy J96.11; Z99.81
[2025-03-25 05:33] LABS: Blood Urea Nitrogen 18 mg/dL (8-23); Carbon Dioxide 23 mmol/L (22-29); Chloride 109 mmol/L (98-107); Creatinine Clr Calc Pharmacy 53.4464; Glomerular Filtration Rate 49.5 mL/min (90-130); Glucose 117 mg/dL (65-115); Osmolality Calculated 295 mOsm/kg (285-295); Sodium 141 mmol/L (136-145)
[2025-03-25] MEDS: buPROPion XL (24 HR) 300 mg Tablet PO (05:39)
[2025-03-25] MEDS: ARIPiprazole 10 mg Tablet 15 MG PO (05:39)
[2025-03-25] MEDS: atorvastatin 40 mg Tablet 80 MG PO (05:39)
[2025-03-25] MEDS: sertraline 100 mg Tablet PO (05:40)
[2025-03-25] MEDS: TRAMadol 50 mg Tablet PO ×3 (05:50→17:26)
[2025-03-25 06:46] LABS: Glucose Point of Care 122 mg/dL (70-110)
[2025-03-25] MEDS: budesonide 0.5 mg/2 mL Neb INHALATION ×2 (08:59→20:09)
[2025-03-25] MEDS: ipratropium-albuterol 3 mL Neb INHALATION ×4 (08:59→20:09)
[2025-03-25] MEDS: pantoprazole DR 40 mg Tablet PO (09:39)
[2025-03-25] MEDS: amiodarone 200 mg Tablet PO ×2 (09:39→17:26)
[2025-03-25] MEDS: gabapentin 300 mg Capsule 600 MG PO ×2 (09:39→17:26)
[2025-03-25] MEDS: apixaban 5 mg Tablet 2.5 MG PO ×2 (09:39→17:27)
[2025-03-25] MEDS: aspirin 325 mg EC Tablet PO (09:39)
[2025-03-25] MEDS: metoprolol succinate ER (24 HR) 100 mg Tablet 200 MG PO (09:39)
[2025-03-25] MEDS: docusate sodium 100 mg Capsule PO ×2 (09:40→17:26)
[2025-03-25 11:03] LABS: Glucose Point of Care 136 mg/dL (70-110)
[2025-03-25 15:38] LABS: Glucose Point of Care 130 mg/dL (70-110)
[2025-03-25] MEDS: fluticasone nasal spray 16gm Btl 1 SPRAY NASAL (17:26)
[2025-03-25] MEDS: famotidine 20 mg Tablet 40 MG PO (20:17)
[2025-03-25 21:05] LABS: Glucose Point of Care 190 mg/dL (70-110)
[2025-03-25] MEDS: insulin lispro 100 unit/1 mL SUBCUT (21:28)
[2025-03-26] VITALS (11 sets, daily range): BP systolic 98–139; BP diastolic 62–91; PULSE 65–99; RESP 16–20; TEMP 36.4–36.8; O2SAT 90–98
[2025-03-26] MEDS: TRAMadol 50 mg Tablet PO ×3 (04:02→17:10)
[2025-03-26 05:19] LABS: Blood Urea Nitrogen 17 mg/dL (8-23); Calcium 8.9 mg/dL (8.5-10.5); Carbon Dioxide 24 mmol/L (22-29); Chloride 110 mmol/L (98-107); Glomerular Filtration Rate 55.3 mL/min (90-130); Glucose 160 mg/dL (65-115); Osmolality Calculated 305 mOsm/kg (285-295); Sodium 145 mmol/L (136-145)
[2025-03-26 05:20] LABS: Anion Gap 15.1 (5-19); Potassium 4.1 mmol/L (3.5-5.1)
[2025-03-26] MEDS: buPROPion XL (24 HR) 300 mg Tablet PO (05:23)
[2025-03-26] MEDS: atorvastatin 40 mg Tablet 80 MG PO (05:23)
[2025-03-26] MEDS: ARIPiprazole 10 mg Tablet 15 MG PO (05:24)
[2025-03-26] MEDS: sertraline 100 mg Tablet PO (05:24)
[2025-03-26 06:45] LABS: Glucose Point of Care 196 mg/dL (70-110)
--- NOTE | 2025-03-26 07:25 | P.PN_ITS ---
Subjective 2 Subjective: No complaints overnight. Denies any chest pain at this time. Medications: Reviewed: Yes Vitals/I&O/Wt Last Vital Signs Temp 97.6 F 03/26/25 07:19 Pulse 91 03/26/25 07:19 Resp 19 H 03/26/25 07:19 BP 120/72 03/26/25 07:19 Pulse Ox 96 03/26/25 07:19 O2 Del Method Nasal Cannula 03/26/25 07:19 O2 Flow Rate 2 03/25/25 20:09 03/25/25 03/26/25 03/26/25 22:59 06:59 14:59 Intake Total 740 / 740 Balance 740 / 740 Weight last 48 hrs Weight 192 lb 3.2 oz Weight 195 lb 1.6 oz Weight 195 lb Physical Exam 2 Narrative: General: Cooperative patient in no apparent distress. Well developed. HEENT: Normocephalic, Atraumatic. External ears normal. Nasal passages patent without drainage. MMM. Heart: RRR. Resp: LCTA. No respiratory distress, no use of accessory muscles. Abd: Soft, non-tender. Non-distended. Extremities: No edema. Skin: No rash or lesions on exposed areas. Neuro: No focal motor or sensory loss. Data 03/24/25 04:00 03/26/25 04:27 A&P Assessment and plan (1) Chest pain with high risk for cardiac etiology: (2) Acute kidney injury: (3) Atrial fibrillation: (4) HIV disease: (5) Pulmonary HTN: (6) Benign essential HTN: (7) CAD (coronary artery disease): (8) Dyslipidemia: (9) Type 2 diabetes mellitus: (10) COPD (chronic obstructive pulmonary disease): (11) Chronic hypoxic respiratory failure, on home oxygen therapy: Plan 69-year-old female, atrial fibrillation, pulmonary hypertension, CAD, admitted for chest pain. With past medical history of HIV. Continue inpatient monitoring. Cardiology evaluated and no acute intervention needed. Will plan for stress test on Thursday morning. If results are negative, she can likely discharge home afterwards with cardiology follow-up. Currently not having chest pain or shortness of breath. Will have to hold HIV medications as they are not available through the pharmacy and she cannot get someone to bring them in. Has a history of COPD, but her oxygen is currently in the 90th percentile on room air. Continue to monitor for now. Continue telemetry. History of atrial fibrillation. Her blood pressure and heart rate are both currently controlled. Will continue home medications. CKD with baseline creatinine around 1.1. Her current labs also reflect this. She is eating and drinking well. May DC IV fluids. Continue home medications for other chronic problems. Code Status: Full IVF: None DVT PPx: Eliquis GI PPx: Protonix ABx: None Diet: Cardiac Discharge plan: Home when stable. PDMP PDMP Reviewed: Not Reviewed Attestations 2 Medical Necessity Statement*: Will need continued inpatient stay for work up of chest pain, cardiology eval, recheck on labs and prep for stress test on Thursday. Coding Level of Care Code Acute Code for Chg Fwd Moderate MDM includes number and complexity of problems actively addressed during encounter, amount and/or complexity of data reviewed/ordered and described risk of complication, morbidity or mortality of management as documented Diagnoses Chest pain with high risk for cardiac etiology R07.9 Acute kidney injury N17.9 Paroxysmal atrial fibrillation I48.0 Atrial fibrillation type: paroxysmal HIV disease B20 Pulmonary HTN I27.20 Benign essential HTN I10 CAD (coronary artery disease) I25.10 Dyslipidemia E78.5 Type 2 diabetes mellitus E11.9 COPD (chronic obstructive pulmonary disease) J44.9 Chronic hypoxic respiratory failure, on home oxygen therapy J96.11; Z99.81
[2025-03-26] MEDS: aspirin 325 mg EC Tablet PO (08:17)
[2025-03-26] MEDS: amiodarone 200 mg Tablet PO ×2 (08:18→17:10)
[2025-03-26] MEDS: apixaban 5 mg Tablet 2.5 MG PO ×2 (08:18→17:11)
[2025-03-26] MEDS: insulin lispro 100 unit/1 mL SUBCUT ×3 (08:18→21:07)
[2025-03-26] MEDS: metoprolol succinate ER (24 HR) 100 mg Tablet 200 MG PO (08:18)
[2025-03-26] MEDS: pantoprazole DR 40 mg Tablet PO (08:18)
[2025-03-26] MEDS: gabapentin 300 mg Capsule 600 MG PO ×2 (08:18→17:10)
[2025-03-26] MEDS: fluticasone nasal spray 16gm Btl 1 SPRAY NASAL (08:18)
[2025-03-26] MEDS: docusate sodium 100 mg Capsule PO ×2 (08:18→17:10)
[2025-03-26] MEDS: ipratropium-albuterol 3 mL Neb INHALATION ×3 (08:56→20:59)
[2025-03-26] MEDS: budesonide 0.5 mg/2 mL Neb INHALATION ×2 (08:56→20:59)
[2025-03-26 10:58] LABS: Glucose Point of Care 187 mg/dL (70-110)
--- NOTE | 2025-03-26 12:51 | PC.RESP ---
RT busy with patient in ER, treatment not given.
[2025-03-26 16:38] LABS: Glucose Point of Care 137 mg/dL (70-110)
[2025-03-26] MEDS: nitroglycerin 0.4 mg sublingual Tablet SUBLINGUAL (19:52)
[2025-03-26 20:33] LABS: Glucose Point of Care 219 mg/dL (70-110)
[2025-03-26] MEDS: famotidine 20 mg Tablet 40 MG PO (21:07)
[2025-03-26] MEDS: sennosides 8.6 mg Tablet 17.2 MG PO (21:07)
[2025-03-26] MEDS: morphine 4 mg/mL SDV 1 mL 2 MG IVP (21:13)
[2025-03-27 04:00] VITALS: BP 114/76; PULSE 97; RESP 18; TEMP 36.4; O2SAT 90
[2025-03-27 06:05] LABS: Blood Urea Nitrogen 15 mg/dL (8-23); Calcium 9.4 mg/dL (8.5-10.5); Carbon Dioxide 23 mmol/L (22-29); Chloride 106 mmol/L (98-107); Creatinine Clr Calc Pharmacy 59.0881; Glomerular Filtration Rate 55.3 mL/min (90-130); Glucose 143 mg/dL (65-115); Osmolality Calculated 293 mOsm/kg (285-295); Sodium 140 mmol/L (136-145)
[2025-03-27] MEDS: ARIPiprazole 10 mg Tablet 15 MG PO (06:23)
[2025-03-27] MEDS: buPROPion XL (24 HR) 300 mg Tablet PO (06:24)
[2025-03-27] MEDS: sertraline 100 mg Tablet PO (06:24)
[2025-03-27] MEDS: atorvastatin 40 mg Tablet 80 MG PO (06:24)
[2025-03-27] MEDS: TRAMadol 50 mg Tablet PO ×2 (06:27→11:48)
[2025-03-27 06:43] LABS: Glucose Point of Care 151 mg/dL (70-110)
[2025-03-27] MEDS: regadenoson 0.4 Mg/5 ml Syringe IVP (07:38)
[2025-03-27 07:53] VITALS: BP 141/90; PULSE 104
[2025-03-27] MEDS: budesonide 0.5 mg/2 mL Neb INHALATION (08:39)
[2025-03-27] MEDS: ipratropium-albuterol 3 mL Neb INHALATION ×2 (08:39→11:27)
[2025-03-27 08:40] VITALS: PULSE 86; RESP 16; O2SAT 97
[2025-03-27] MEDS: gabapentin 300 mg Capsule 600 MG PO (09:18)
[2025-03-27] MEDS: metoprolol succinate ER (24 HR) 100 mg Tablet 200 MG PO (09:18)
[2025-03-27] MEDS: amiodarone 200 mg Tablet PO (09:19)
[2025-03-27] MEDS: pantoprazole DR 40 mg Tablet PO (09:19)
[2025-03-27] MEDS: aspirin 325 mg EC Tablet PO (09:19)
[2025-03-27] MEDS: fluticasone nasal spray 16gm Btl 1 SPRAY NASAL (09:24)
--- NOTE | 2025-03-27 10:14 | NMCV_ITS ---
NM lupe perf SPECT r/s* [id number] Katie Andrews Age: 69 Gender: F : 1955 Exam Date: 03/27/2025 07:02 Ordering Phys: Marilou Rm MD Technologist: NING Cheng Exam Location: [facility] Indications: cp STRESS TEST Please see separate stress test report in [facility] for full findings IMAGE PROTOCOL Rest/Stress 1 Lexiscan Day Radiopharmaceutical Dose (mCi) Administration Site Administered by Rest: Tc-99m 10.8 IV Mallory Yañez, SUPPLY CHAIN ENGINEER Sestamibi Stress:Tc-99m 32.6 IV Mallory Videsgle, SUPPLY CHAIN ENGINEER Sestamibi Rest: 03/27/2025 60 Discovery 630 Stress: 03/27/2025 30 Discovery 630 0.4mg Lexiscan. Images obtained in supine and prone position. SPECT RESULTS Technical Quality: Good Raw Data Analysis: Normal Image Corrections: No attenuation or motion correction applied Summed Stress Score: 1 Summed Rest Score: 1 Summed Difference Score: 1 PERFUSION FINDINGS There is a small sized, fixed perfusion defect seen in anterior wall. This is consistent with small area of prior infarct in LAD territory. No significant ischemia seen FUNCTIONAL RESULTS (calculated via Gated SPECT) Stress Image LV EF (%): 37 Stress EDV (mL):142 TID: 0.93 Stress ESV (mL):90 FUNCTIONAL FINDINGS: LV systolic function is moderately reduced with EF of 37% IMPRESSIONS 1. Small area of prior infarct seen in LAD territory. No significant ischemia 2. LV systolic function is moderately reduced with EF of 37% Gilbert Maldonado MD (Electronically Signed) Final Date: 27 March 2025 10:18 S
[2025-03-27 10:56] LABS: Glucose Point of Care 211 mg/dL (70-110)
[2025-03-27 11:00] VITALS: BP 136/94; PULSE 90; RESP 18; TEMP 36.7; O2SAT 97
--- NOTE | 2025-03-27 11:00 | PM.DCS ---
Discharge Providers Date of Admission: 03/24/25 02:10 Date of Discharge: March 27, 2025 Attending Provider at Admission: Karen Puri MD Attending Provider at Discharge: Malcolm Childs MD Consults: Cardiology: Dr. Maldonado Primary Care Provider: Alexa Ayers APN Diagnoses at Discharge Discharge Diagnosis (1) Chest pain with high risk for cardiac etiology: Status: Acute (2) Acute kidney injury: Status: Acute (3) Atrial fibrillation: Status: Acute Qualifiers: Atrial fibrillation type: paroxysmal Qualified Code(s): I48.0 - Paroxysmal atrial fibrillation (4) HIV disease: Status: Acute (5) Pulmonary HTN: Status: Acute Reason for Visit Reason for Visit: Chest Pain Brief History: History as per HPI: Katie Andrews is a 69 year old female with medical history significant for atrial fibrillation on anticoagulant and also on amiodarone, history of CAD, history of angioplasty. HIV disease presenting with chest pains for few minutes and it went away. Further evaluation showed patient does have acute renal failure with a creatinine of 1.9 patient baseline creatinine has been 0.7-0.9. Initial troponin was 57 and has stayed flat for the serial troponin done patient indeed did have elevated troponin likely secondary to renal failure patient has been diabetic type II and on metformin as well. Patient takes Janumet for blood sugar Patient given a full aspirin and try to keep medication renal friendly must hold home medication of lisinopril metformin all noted to be very renal friendly. Can hydrate patient with a normal saline gently I will think patient should be able to have a stress test. Will obtain cardiology consult to make sure that is the best I do not believe patient has troponin elevation and this is from renal not been able to secrete the troponin. Hospital Course Hospital Course Patient was admitted to the hospital further evaluation and management of chest discomfort with occasional pain with significant history of CAD, acute kidney injury. She was started on IV hydration. Cardiology was consulted. Patient continued to have occasional episodes of chest heaviness. She underwent cardiac stress test on 03/27 which Showed small area of prior infarct in LAD without significant ischemia. Patient's symptoms are most likely in setting of mild CHF versus COPD exacerbation. She underwent echocardiogram which showed an EF of 40 to 45% with mild MR and TR. She has been discharged in hemodynamically stable condition. During hospitalization she was found to have uncontrolled type 2 diabetes mellitus for which glimepiride 2 mg daily has been added to her medication list. Farxiga has also been added to medication which should help for both with CHF and diabetes. Her dose of Lasix has been continue with 20 mg daily with advised to take a higher dose if her body weight increases by 5 pounds. Physical Exam Narrative: General: Cooperative patient in no apparent distress. Well developed. HEENT: Normocephalic, Atraumatic. External ears normal. Nasal passages patent without drainage. MMM. Heart: RRR. Resp: LCTA. No respiratory distress, no use of accessory muscles. Abd: Soft, non-tender. Non-distended. Extremities: No edema. Skin: No rash or lesions on exposed areas. Neuro: No focal motor or sensory loss. Discharge Data Studies Completed and Pending Completed Studies During Hospitalization Category Date Time Status XR chest 1V portable [id number] Stat Exams 03/23/25 22:50 Completed NM lupe perf SPECT r/s* [id number] Routine Nuc Med 03/27/25 10:14 Completed CV. echo complete* [id number] Stat Ultrasound 03/24/25 01:43 Completed Pending at discharge Category Date Time Status Sestamibi Stress Test Request Routine Exams 03/25/25 06:00 Ordered A1C [Hemoglobin A1C] Routine Lab 03/27/25 10:59 Ordered B12 [Vitamin B12] Routine Lab 03/27/25 10:59 Ordered Lipid Profile w/VLDL Routine Lab 03/27/25 10:59 Ordered MAG [Magnesium] AM LABS Lab 03/28/25 04:00 Ordered MAG [Magnesium] AM LABS Lab 03/29/25 04:00 Ordered MAG [Magnesium] AM LABS Lab 03/30/25 04:00 Ordered TIBC [Total Iron Binding Capacity] Routine Lab 03/27/25 10:59 Ordered Thyroid Stimulating Hormone Stat Lab 03/27/25 10:59 Ordered Radiology Impressions Chest X-Ray 03/23/25 22:50 IMPRESSION: No acute cardiopulmonary disease. Echocardiogram: CONCLUSIONS Moderately reduced LV systolic function. Estimated LVEF of 40 to 45%. Hypokinesis of anterior and anteroseptal wall segments. Mild mitral and tricuspid regurgitation. Mildly elevated right heart and pulmonary pressures (35 mmHg). Caroline Marin MD (Electronically Signed) Final Date: 24 March 2025 Laboratory Results WBC 9.30 10^3/uL (3.29-11.43) 03/24/25 04:00 RBC 5.52 10^6/uL (3.85-5.65) 03/24/25 04:00 Hgb 15.80 g/dL (11.27-16.99) 03/24/25 04:00 Hct 50.0 % (36-47) H 03/24/25 04:00 MCV 90.6 fl (85-98) 03/24/25 04:00 MCH 28.6 pg (27-33) 03/24/25 04:00 MCHC 31.6 g/dL (30-55) 03/24/25 04:00 RDW 18.2 % (12.1-15.1) H 03/24/25 04:00 Plt Count 213 10^3/cmm (157-399) 03/24/25 04:00 MPV 9.8 fL (7.4-10.4) 03/24/25 04:00 Neut % (Auto) 64.8 % 03/24/25 04:00 Lymph % (Auto) 21.3 % 03/24/25 04:00 [place] % (Auto) 11.4 % 03/24/25 04:00 Eos % (Auto) 1.4 % 03/24/25 04:00 Baso % (Auto) 0.6 % 03/24/25 04:00 Neut # (Auto) 6.02 10^3/uL (1.8-7.7) 03/24/25 04:00 Lymph # (Auto) 2.0 10^3/uL (0.8-4.8) 03/24/25 04:00 [place] # (Auto) 1.1 10^3/uL (0.2-0.9) H 03/24/25 04:00 Eos # (Auto) 0.1 10^3/uL (0.0-0.8) 03/24/25 04:00 Baso # (Auto) 0.1 10^3/uL (0.0-0.1) 03/24/25 04:00 Nucleated RBC % (auto) 0 % 03/24/25 04:00 Nucleated RBCs # 0.0 /100WBC 03/24/25 04:00 Sodium 140 mmol/L (136-145) 03/27/25 05:29 Potassium 4.0 mmol/L (3.5-5.1) 03/27/25 05:29 Chloride 106 mmol/L (98-107) 03/27/25 05:29 Carbon Dioxide 23 mmol/L (22-29) 03/27/25 05:29 Anion Gap 15.0 (5-19) 03/27/25 05:29 BUN 15 mg/dL (8-23) 03/27/25 05:29 Creatinine 1.0 mg/dL (0.5-0.9) H 03/27/25 05:29 GFR Calculation 55.3 mL/min (90-130) L 03/27/25 05:29 Glucose 143 mg/dL (65-115) H 03/27/25 05:29 POC Glucose 211 mg/dL (70-110) H 03/27/25 10:44 Calculated Osmolality 293 mOsm/kg (285-295) 03/27/25 05:29 Calcium 9.4 mg/dL (8.5-10.5) 03/27/25 05:29 Phosphorus 3.7 mg/dL (2.5-4.5) 03/24/25 04:00 Magnesium 1.6 mg/dL (1.7-2.3) L 03/24/25 04:00 Total Bilirubin 0.7 mg/dL (0.15-1.2) 03/24/25 04:00 AST 24 U/L (0-32) 03/24/25 04:00 ALT 27 U/L (0-33) 03/24/25 04:00 Alkaline Phosphatase 138 U/L (35-105) H 03/24/25 04:00 Troponin T Baseline 36 ng/L (0-10) H 03/24/25 14:37 Troponin T 120 Minute 35.99 ng/L (0-10) H 03/24/25 17:06 Delta Troponin T -0.01 ABS# (0-10) L 03/24/25 17:06 Troponin T Hi Sens 6Hr 33.95 ng/L (0-10) H 03/24/25 20:13 Troponin T Hi Sens 6Hr Delta -2.05 ng/L (0-12) L 03/24/25 20:13 NT-Pro-B Natriuret Pep 4757 pg/mL (0-125) H 03/24/25 04:00 Total Protein 6.3 g/dL (6.6-8.7) L 03/24/25 04:00 Albumin 4.0 g/dL (3.5-5.2) 03/24/25 04:00 Globulin 2.3 g/dL (1.3-4.6) 03/24/25 04:00 Urine Color Dark yellow (Yellow) A 03/24/25 13:00 Urine Appearance Cloudy (CLEAR) A 03/24/25 13:00 Urine pH 5.0 (5-7) 03/24/25 13:00 Ur Specific [place] 1.031 (1.005-1.030) H 03/24/25 13:00 Urine Protein 1+ (Negative) A 03/24/25 13:00 Urine Glucose (UA) Negative (Normal) 03/24/25 13:00 Urine Ketones Trace (Negative) 03/24/25 13:00 Urine Blood Negative (Negative) 03/24/25 13:00 Urine Nitrate Negative (Negative) 03/24/25 13:00 Urine Bilirubin 1+ (Negative) H 03/24/25 13:00 Urine Urobilinogen 1.0 mg/dL (Negative) 03/24/25 13:00 Ur Leukocyte Esterase Trace (Negative) A 03/24/25 13:00 Urine RBC 6-10 /hpf (0-2) 03/24/25 13:00 Urine WBC 0-5 /hpf (0-5) 03/24/25 13:00 Ur Squamous Epith Cells 11-20 /hpf (0-5) H 03/24/25 13:00 Amorphous Sediment Trace /hpf 03/24/25 13:00 Urine Bacteria Trace /hpf (NONE) 03/24/25 13:00 Hyaline Casts 106.34 /lpf 03/24/25 13:00 Urine Yeast Trace /hpf 03/24/25 13:00 Ur Random Sodium 33 mmol/L 03/24/25 13:00 Ur Random Potassium 99 mmol/L 03/24/25 13:00 Ur Random Chloride 44 mmol/L 03/24/25 13:00 Vitals Last Vital Signs Temp 98.0 F 03/27/25 11:00 Pulse 90 03/27/25 11:00 Resp 18 03/27/25 11:00 BP 136/94 03/27/25 11:00 Pulse Ox 97 03/27/25 11:00 O2 Del Method Room Air 03/27/25 11:00 O2 Flow Rate 3 03/27/25 08:40 Discharge Plan Discharge Patient Disposition: Home Condition: Stable Prescriptions: New dapagliflozin propanediol [Farxiga] 10 mg tablet 10 mg PO DAILY Qty: 30 3RF glimepiride 2 mg tablet 2 mg PO QAM Qty: 30 0RF Rx Instructions: administer with breakfast Continued Eliquis 5 mg tablet 5 mg PO BID aripiprazole [Abilify] 15 mg tablet 15 mg PO QAM sertraline 100 mg tablet 100 mg PO QAM atorvastatin 80 mg tablet 80 mg PO QAM albuterol sulfate 90 mcg/actuation HFA aerosol inhaler 2 puff inhalation QID PRN (Reason: shortness of breath or wheezing) fluticasone propionate 50 mcg/actuation spray,suspension 1 spray INTRANASAL DAILY Trelegy Ellipta 100-62.5-25 mcg blister with device 1 inh INHALATION DAILY aspirin 81 mg tablet,delayed release (DR/EC) 81 mg PO DAILY Qty: 30 0RF potassium chloride 8 mEq tablet extended release 16 meq PO BID furosemide 20 mg tablet 20 mg PO QAM Qty: 60 0RF cetirizine 10 mg tablet 10 mg PO DAILY PRN (Reason: Allergy Symptoms) bupropion HCl 300 mg tablet extended release 24 hr 300 mg PO QAM Biktarvy 50-200-25 mg tablet 1 tab PO BEDTIME tramadol 50 mg tablet 50 - 100 mg PO Q4H MDD 6 tabs PRN (Reason: Pain) acetaminophen 500 mg Tablet 1,000 mg PO Q6H PRN (Reason: Pain) methocarbamol 750 mg tablet 750 mg PO TID PRN (Reason: muscle spasm ) gabapentin 300 mg capsule 600 mg PO BID Janumet 50-500 mg tablet 1 tab PO BID metoprolol succinate 100 mg Tablet Extended Release 24 Hr 200 mg PO DAILY 30 Days Qty: 30 0RF nitroglycerin [Nitrostat] 0.4 mg Tablet, Sublingual 0.4 mg SUBLINGUAL Q5M PRN (Reason: Chest Pain) 30 Days Qty: 30 0RF Rx Instructions: do not exceed 3 doses per episode Changed amiodarone [Pacerone] 200 mg Tablet 200 mg PO DAILY 30 Days Qty: 60 0RF famotidine 40 mg tablet 40 mg PO BID Qty: 30 0RF Discontinued metformin 500 mg tablet 500 mg PO QAM Rx Instructions: With breakfast lisinopril 10 mg tablet 10 mg PO DAILY celecoxib 100 mg capsule 100 mg PO DAILY Discharge Orders: Discharge Order (Routine); Ordered 03/27/25 Ordered By: Malcolm Childs Referrals: [facility] [Provider Group, Infectious Disease] - 04/18/25 11:00 am Ingrid Vázquez FNP [Nurse Practitioner, Cardiology] - 04/10/25 1:00 pm Alexa Ayers APN [Primary Care Provider, Nurse Practitioner] - 04/03/25 3:40 pm Discharge Diet: Cardiac and Diabetic Discharge Activity: Resume usual activity and Increase activity as tolerated Patient Instructions: Glimepiride (By mouth), Dapagliflozin (By mouth), Chest Pain (GEN), Opioid Safety Activity Restrictions/Additional Instructions: Restrict fluid intake to less than 1500 cc, salt intake to less than 2 g daily. Take Lasix 20 mg daily. Advised to check her weight daily at home. Is advised that weight today would be the dry weight and if body weight increases by around 5 pounds, patient is to take an extra dose of Lasix daily till body weight comes down to weight today. If not able to come down to dry body weight in 1 week, then is to call cardiology office for further recommendations. Patient was counseled in detail to take medications regularly as prescribed. Farxiga has been added to your medication list for diabetes. Do not take metformin. Glimepiride 2 mg daily has also been added to your medication list. Goal fasting blood sugar is less than 120. Please check your blood sugars daily at home maintain a blood sugar diary and follow-up with a primary care provider for further adjustment of antidiabetic medications. Discharge Attestations Time Spent in Discharge Care*: greater than 30 min Specific Discharge Activities: educating patient, discussing with pcp/other providers, discussing with piano case maker/social workers/dc planners, documenting/other paperwork and evaluating patient/reviewing data Time Spent in Smoking Cessation: more than 10 minutes Status at Discharge: Cognitive status at discharge: cognitively intact, Behavioral status at discharge: cooperative, Functional status at discharge: independent ambulation, Overall status at discharge: patient is back to baseline Quality Metrics Clinical Quality Measures [ No reported AMI, CVA or VTE this stay] Coding Level of Care Code 02053 Total time (in minutes) for Discharge: 65 Diagnoses Chest pain with high risk for cardiac etiology R07.9 Acute kidney injury N17.9 Paroxysmal atrial fibrillation I48.0 Atrial fibrillation type: paroxysmal HIV disease B20 Pulmonary HTN I27.20
--- NOTE | 2025-03-27 11:20 | P.PN_ITS ---
Subjective 2 Subjective: Patient doing well this morning. Denies any chest pain. She is lying flat in bed without any significant shortness of breath. She states she has some but it is stable. She is chronically on oxygen. Stress test showed small area of prior infarct in the LAD without significant ischemia. Vitals/I&O/Wt Last Vital Signs Temp 98.0 F 03/27/25 11:00 Pulse 90 03/27/25 11:00 Resp 18 03/27/25 11:00 BP 136/94 03/27/25 11:00 Pulse Ox 97 03/27/25 11:00 O2 Del Method Room Air 03/27/25 11:00 O2 Flow Rate 3 03/27/25 08:40 03/26/25 03/27/25 03/27/25 22:59 06:59 14:59 Intake Total 960 / 1440 0 / 1440 Output Total 200 / 200 Balance 960 / 1440 -200 / 1240 Weight last 48 hrs Weight 197 lb Weight 192 lb 3.2 oz Physical Exam 2 Narrative: General: No apparent distress, healthy appearing, well nourished HENMT: normoceophalic Muskuloskeletal: Full ROM Respiratory: Normal respiratory effort, clear to auscultation bilaterally throughout all lung cameron, no use of accessory muscles Cardio: No JVD, regular rate, regular rhythm, S1 S2 normal, no murmurs, peripheral pulses 2+ radial palpated bilaterally Extremities: Full ROM, normal, normal capillary refill, no cyanosis or edema Neuro: Alert and oriented x4, no focal motor deficits Psych: Affect normal, mental status grossly normal Skin: No rashes or lesions noted, no wounds Data 03/24/25 04:00 03/27/25 05:29 A&P Assessment and plan (1) Chest pain with high risk for cardiac etiology: (2) Acute kidney injury: (3) Atrial fibrillation: (4) HIV disease: (5) Pulmonary HTN: Plan At this point we will continue to medical manage patient. Continue GDMT including Metoprolol. Stress test was negative for any ischemia. Would recommend continuing home dose of Eliquis 5 twice daily as her JOSE has resolved. PDMP PDMP Reviewed: Not Reviewed Attestations 2 Medical Necessity Statement*: Deferred to primary Coding Level of Care Code Acute Code for [facility] Fwd Diagnoses Chest pain with high risk for cardiac etiology R07.9 Acute kidney injury N17.9 Paroxysmal atrial fibrillation I48.0 Atrial fibrillation type: paroxysmal HIV disease B20 Pulmonary HTN I27.20
[2025-03-27 11:28] VITALS: PULSE 87; RESP 16; O2SAT 97
[2025-03-27 11:48] LABS: Estmated Average Glucose 226; Hemoglobin A1C 9.5 % (4.0-6.0)
[2025-03-27] MEDS: insulin lispro 100 unit/1 mL SUBCUT (11:48)
[2025-03-27] MEDS: methocarbamol 750 mg Tablet PO (11:48)
[2025-03-27 11:55] LABS: Chol HDL Ratio 2.45 mg/dL (0.0-4.40); Cholesterol 108 mg/dL (0-200); HDL Cholesterol 44 mg/dL (60-100); Iron 58 ug/dL (37-145); LDL Cholesterol Calculated 31 mg/dL (50-129); Thyroid Stimulating Hormone 1.61 uIU/mL (0.27-4.20); Total Iron Binding Capacity 276 mcg/dl; Triglycerides 167 mg/dL (0-150); Unsaturated Iron Binding 218 ug/dL (112-347); VLDL Cholestrol Calculation 33 mg/dL (0-30); Vitamin B12 1011 pg/mL (232-1245)
--- NOTE | 2025-03-27 15:52 | PC.SOCIAL ---
IMM Update pg 2 of IMM Updated and reviewed w/ patient. Copy provided and copy dated, initialed and placed in chart.
== END 2025-03-27 14:39 | disposition home or self-care (01) | DRG 683 ==
LOC: ER 03-24 01:01 → ER IP 03-24 02:11 → MEDSURG 03-24 04:56
PROVIDERS: Nurse Practitioner Family; Student in an Organized Health Care Education/Training Program; Admitting Provider Internal Medicine; Emergency Provider Emergency Medicine; PCP Nurse Practitioner Family; Visit Provider Student in an Organized Health Care Education/Training Program
DX: N17.9 Acute kidney failure, unspecified (principal); I13.0 Hypertensive heart and chronic kidney disease with heart failure and stage 1 through stage 4 chronic kidney disease, or unspecified chronic kidney disease; I50.32 Chronic diastolic (congestive) heart failure; J44.1 Chronic obstructive pulmonary disease with (acute) exacerbation; J96.11 Chronic respiratory failure with hypoxia; R07.9 Chest pain, unspecified; I25.2 Old myocardial infarction; I48.0 Paroxysmal atrial fibrillation; Z21 Asymptomatic human immunodeficiency virus [HIV] infection status; I27.20 Pulmonary hypertension, unspecified; I25.10 Atherosclerotic heart disease of native coronary artery without angina pectoris; R79.89 Other specified abnormal findings of blood chemistry; E11.22 Type 2 diabetes mellitus with diabetic chronic kidney disease; E11.65 Type 2 diabetes mellitus with hyperglycemia; N18.9 Chronic kidney disease, unspecified; I08.1 Rheumatic disorders of both mitral and tricuspid valves; G47.33 Obstructive sleep apnea (adult) (pediatric); F32.A Depression, unspecified; Z99.81 Dependence on supplemental oxygen; Z79.84 Long term (current) use of oral hypoglycemic drugs; Z79.51 Long term (current) use of inhaled steroids; Z79.01 Long term (current) use of anticoagulants; Z79.891 Long term (current) use of opiate analgesic; Z87.891 Personal history of nicotine dependence; Z90.5 Acquired absence of kidney; Z90.49 Acquired absence of other specified parts of digestive tract; Z90.2 Acquired absence of lung [part of]; Z95.5 Presence of coronary angioplasty implant and graft
CPT/HCPCS: 36415; 36416; 71045; 78452; 80048; 80053; 80061; 81001; 82436; 82607; 82962; 83036; 83540; 83550; 83735; 83880; 84100; 84133; 84300; 84443; 84484; 85025; 93005; 93017; 93306; 94640; 96361; 96372; 96374; 96375; 99285; A9500; J1644; J1815; J2270; J2785; J7030; J7040; J7626; J9999

== ENCOUNTER → 2025-04-10 13:46 | Outpatient (BNVA) | payer OTHER, SELFPAY | PROVIDERS: PCP Nurse Practitioner Family; Visit Provider Nurse Practitioner Family | DX: I48.0 Paroxysmal atrial fibrillation (principal) | CPT/HCPCS: 93005; 99214 ==

== ENCOUNTER → 2025-04-17 15:06 | Outpatient (BNVA) | payer OTHER, SELFPAY | PROVIDERS: PCP Nurse Practitioner Family; Visit Provider Nurse Practitioner Family | DX: I25.10 Atherosclerotic heart disease of native coronary artery without angina pectoris (principal); Z09 Encounter for follow-up examination after completed treatment for conditions other than malignant neoplasm; I13.0 Hypertensive heart and chronic kidney disease with heart failure and stage 1 through stage 4 chronic kidney disease, or unspecified chronic kidney disease; N18.9 Chronic kidney disease, unspecified; I50.30 Unspecified diastolic (congestive) heart failure; E78.5 Hyperlipidemia, unspecified; I48.20 Chronic atrial fibrillation, unspecified; Z79.01 Long term (current) use of anticoagulants; Z79.82 Long term (current) use of aspirin; I27.20 Pulmonary hypertension, unspecified; G47.33 Obstructive sleep apnea (adult) (pediatric); R74.01 Elevation of levels of liver transaminase levels; Z98.61 Coronary angioplasty status; F17.200 Nicotine dependence, unspecified, uncomplicated; F15.91 Other stimulant use, unspecified, in remission; I25.2 Old myocardial infarction | CPT/HCPCS: 99213 ==

== ENCOUNTER → 2025-04-18 11:00 | Outpatient (BNVA) | payer OTHER, SELFPAY | PROVIDERS: PCP Nurse Practitioner Family; Visit Provider Student in an Organized Health Care Education/Training Program | DX: B20 Human immunodeficiency virus [HIV] disease (principal) | CPT/HCPCS: G0463 ==

== ENCOUNTER 2025-04-18 11:34 | Inpatient (IN) | payer OTHER, SELFPAY ==
[2025-04-18] VITALS (13 sets, daily range): BP systolic 125–175; BP diastolic 79–117; PULSE 96–124; RESP 16–26; TEMP 36.6–36.8; O2SAT 88–97; BMI 36.0; BMI 36.3
--- NOTE | 2025-04-18 11:34 | XRR_ITS ---
PROCEDURE INFORMATION: Exam: XR Chest Exam date and time: 04/18/2025 11:45 AM Age: 69 years old Clinical indication: Shortness of breath; HX of esophageal cancer; Additional info: Cp TECHNIQUE: Imaging protocol: Radiologic exam of the chest. Views: 1 view. COMPARISON: CR (CHEST, ) 03/23/2025 10:51 PM FINDINGS: Limitations: There has been an incomplete inspiratory effort. Lungs: Slight increase in interstitial and vascular markings likely relates to underinflated lungs. Focal infiltrate is not identified. Pleural spaces: No significant pleural effusion. No pneumothorax. Heart/Mediastinum: Heart and mediastinal size remains at the upper limit of normal. Bones/joints: Unremarkable. Soft tissues: Radiodense structure in the left axilla was not previously identified and likely represents an artifact overlying the patient. XR/XR chest 1V portable [id number] IMPRESSION: 1. Slight increase in interstitial and vascular markings, which could represent compressive/atelectatic changes or mild. 2. No other acute disease identified.
--- NOTE | 2025-04-18 11:34 | ECG_ITS ---
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 Measurements Intervals [place] Rate: 120 P: 0 [place]: 0 QRS: 8 QRSD: 89 T: 120 QT: 320 QTc: 454 Interpretive Statements ATRIAL FLUTTER WITH RAPID VENTRICULAR RESPONSE SEPTAL MYOCARDIAL INFARCTION , PROBABLY OLD [40+ ms Q WAVE IN V1/V2] Compared to ECG 04/10/2025 13:55:59 No significant changes Electronically Signed On 04-18-2025 14:58:32 CDT by Gilbert Maldonado M.D. [email or web address]
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
[2025-04-18] MEDS: dilTIAZem 5 mg/mL SDV 5 mL 10 MG IVP (12:12)
[2025-04-18] MEDS: methylPREDNISolone sod succ 125 mg/2 mL INJ IVP (12:12)
[2025-04-18 12:19] LABS: Hematocrit 42.1 % (36-47); Hemoglobin 13.40 g/dL (11.27-16.99); Mean Corpuscular HGB Conc 31.8 g/dL (30-55); Mean Corpuscular Hemoglobin 29.7 pg (27-33); Mean Corpuscular Volume 93.3 fl (85-98); Nucleated Red Blood Cells % 0 %; Platelet Count 225 10^3/cmm (157-399); Red Blood Count 4.51 10^6/uL (3.85-5.65); White Blood Count 11.62 10^3/uL (3.29-11.43)
[2025-04-18 12:32] LABS: INR 1.05 (0.8-1.2); Prothrombin Time 14.50 SECONDS (12.1-14.9)
[2025-04-18 12:38] LABS: Troponin(5th) Baseline 23 ng/L (0-10)
[2025-04-18 12:52] LABS: Alanine Aminotransferase 55 U/L (0-33); Albumin Level 4.4 g/dL (3.5-5.2); Alkaline Phosphatase 157 U/L (35-105); Anion Gap 18.2 (5-19); Aspartate Amino Transferase 46 U/L (0-32); Blood Urea Nitrogen 17 mg/dL (8-23); Calcium 9.5 mg/dL (8.5-10.5); Carbon Dioxide 26 mmol/L (22-29); Chloride 105 mmol/L (98-107); Creatinine Clr Calc Pharmacy 61.1206; Globulin 2.3 g/dL (1.3-4.6); Glucose 167 mg/dL (65-115); Lipase 49 U/L (13-60); NT Pro B Type Natriuretic Pept 7592 pg/mL (0-125); Osmolality Calculated 305 mOsm/kg (285-295); Potassium 4.2 mmol/L (3.5-5.1); Sodium 145 mmol/L (136-145); Total Protein 6.7 g/dL (6.6-8.7)
[2025-04-18] MEDS: dilTIAZem 100 MG in sodium chloride 0.9% (add-van) 100 ML IV (13:27)
--- NOTE | 2025-04-18 13:34 | ECG_ITS ---
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 Measurements Intervals [place] Rate: 126 P: 0 ME: 0 QRS: 7 QRSD: 104 T: 72 QT: 367 QTc: 531 Interpretive Statements ATRIAL FLUTTER/TACHYCARDIA WITH RAPID VENTRICULAR RESPONSE SEPTAL MYOCARDIAL INFARCTION , OF INDETERMINATE AGE [40+ ms Q WAVE IN V1/V2] Compared to ECG 04/18/2025 11:41:44 No significant changes Electronically Signed On 04-18-2025 15:00:08 CDT by Gilbert Maldonado M.D. [email or web address] [id number]
[2025-04-18 13:53] LABS: ABG PCO2 59.0 mmHg (35-45); ABG PH Result 7.35 (7.35-7.45); Alveolar-Arterial Oxygen Gradi 10.9 mmHg (5-10); Arterial Blood Gas Hematocrit 43.4 % (37-47); Blood Gas Allen Test Pos; Blood Gas LPM 3.0 %; Blood Gas Operator Identificat glc; Blood Gas Sample Site Radial, left; Blood Gas Sample Type Arterial; Carboxyhemoglobin 2.5 %THgb (0.4-20.1); Glucose Level-ABG 155.0 mg/dL (70-115); HCO3 ABG 32.4 mmol/L (22-26); Ionized Calcium Level - ABG 1.2 mmol/L (1.1-1.4); Methemoglobin 0.2 % (0.4-1.5); Oxygen Saturation ABG 92.6; PO2 ABG 72.8 mmHg (80.0-100.0); PO2 FiO2 Ratio Arterial Blood 227; Potassium Level - ABG 3.7 mmol/L (3.5-5.0); Sodium Level - ABG 148.0 mmol/L (131-143)
[2025-04-18] MEDS: FUROsemide 10 mg/mL SDV 10mL 60 MG IVP (13:55)
[2025-04-18 14:40] LABS: Troponin 5 2HR 20.11 ng/L (0-10)
[2025-04-18 14:41] LABS: Troponin 5 2HR Delta -2.89 ABS# (0-10)
--- NOTE | 2025-04-18 15:11 | PC.NURSE ---
received from er via stretcher at 1455.report received.pt on bipap at 34%.on cardizem drip at 7.5mg/hr.afib on monitor.hr low 100's.bp stable.denies pain at present.oriented to room environment...instructed to notify staff for any sob,if needs to get up,chest pain..or for any concerns at all.pt verb understanding
--- NOTE | 2025-04-18 16:17 | PC.NURSE ---
rn had increased cardizem drip to 10 mg/hr (from 7.5) after noting hr in 120's.dr blake walked in room and increased cardizem drip to 12mg/hr.
[2025-04-18] MEDS: magnesium sulfate premix 2 GM/50 ML PIGGYBACK IV (16:39)
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
[2025-04-18 17:29] LABS: PCP Screen Urine Negative (Negative)
[2025-04-18 17:30] LABS: Magnesium 2.2 mg/dL (1.7-2.3)
--- NOTE | 2025-04-18 17:48 | PC.NURSE ---
dr blake requests...give po amioderone 200 mg now...give amioderone bolus iv... only..no cont drip...continue cardizem drip and try and wean off
[2025-04-18 17:49] LABS: Troponin 5 6HR 17.06 ng/L (0-10)
[2025-04-18 17:51] LABS: Troponin 5 6HR Delta -5.94 ng/L (0-12)
[2025-04-18] MEDS: pantoprazole 40 mg SDV IVP (17:51)
[2025-04-18] MEDS: amiodarone 150 MG/100 ML PREMIX 400 MG IV (17:51)
[2025-04-18] MEDS: FUROsemide 10 mg/mL SDV 4mL 40 MG IVP (17:52)
[2025-04-18] MEDS: metoprolol succinate ER (24 HR) 50 mg Tablet PO (17:53)
[2025-04-18 18:05] LABS: Base Excess VBG 6.6 mmol/L (-3.0-3.0); Blood Gas Operator Identificat glc; Blood Gas Sample Site Not specified; Blood Gas Sample Type Not specified; HCO3 VBG 31.5 mmol/L (24-28); PCO2 VBG 45.0 mmHg (41-51); PO2 VBG 120.0 mmHg (25-40); Venous Blood Gas Hematocrit 44.4 % (37-47); pH VBG 7.45 (7.32-7.42)
--- NOTE | 2025-04-18 18:14 | ECG_ITS ---
[facility] Test Date: 2025-04-18 Pat Name: Katie Andrews Department: Room: 111 Gender: Female Housesmith: : 1955 Requested By: Destiny Bush Order Number: [id number] Reading MD: Alberta Archer M.D. Measurements Intervals [place] Rate: 99 P: 0 [place]: 0 QRS: 4 QRSD: 95 T: 123 QT: 411 QTc: 527 Interpretive Statements ATRIAL FLUTTER/FIBRILLATION, ANTEROSEPTAL MYOCARDIAL INFARCTION , PROBABLY OLD [40+ ms Q WAVE IN V1-V4] Compared to ECG 04/18/2025 14:35:56 No significant changes Electronically Signed On 04-18-2025 18:34:53 CDT by Alberta Archer M.D. [id number] [id number]
[2025-04-18] MEDS: dilTIAZem 100 MG in sodium chloride 0.9% (add-van) 100 ML 12 MG IV (22:09)
[2025-04-19] VITALS (11 sets, daily range): BP systolic 112–135; BP diastolic 72–102; PULSE 90–110; RESP 16–22; TEMP 36.2–36.9; O2SAT 93–96
[2025-04-19 03:37] LABS: Hematocrit 41.2 % (36-47); Hemoglobin 13.10 g/dL (11.27-16.99); Mean Corpuscular HGB Conc 31.8 g/dL (30-55); Mean Corpuscular Hemoglobin 28.9 pg (27-33); Mean Corpuscular Volume 90.9 fl (85-98); Nucleated Red Blood Cells % 0 %; Platelet Count 229 10^3/cmm (157-399); Red Blood Count 4.53 10^6/uL (3.85-5.65); White Blood Count 12.02 10^3/uL (3.29-11.43)
[2025-04-19 04:46] LABS: Alanine Aminotransferase 42 U/L (0-33); Albumin Level 3.9 g/dL (3.5-5.2); Alkaline Phosphatase 136 U/L (35-105); Anion Gap 18.0 (5-19); Aspartate Amino Transferase 27 U/L (0-32); Blood Urea Nitrogen 21 mg/dL (8-23); Calcium 9.2 mg/dL (8.5-10.5); Carbon Dioxide 29 mmol/L (22-29); Chloride 97 mmol/L (98-107); Creatinine Clr Calc Pharmacy 61.1989; Globulin 2.8 g/dL (1.3-4.6); Glucose 253 mg/dL (65-115); Osmolality Calculated 302 mOsm/kg (285-295); Potassium 4.0 mmol/L (3.5-5.1); Sodium 140 mmol/L (136-145); Total Protein 6.7 g/dL (6.6-8.7)
--- NOTE | 2025-04-19 06:37 | ECG_ITS ---
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 Measurements Intervals [place] Rate: 94 P: 0 [place]: 0 QRS: 9 QRSD: 94 T: 177 QT: 376 QTc: 472 Interpretive Statements ATRIAL FLUTTER/TACHYCARDIA NONSPECIFIC T-WAVE ABNORMALITY Compared to ECG 04/18/2025 18:14:36 T-wave abnormality now present Atrial fibrillation no longer present Myocardial infarct finding no longer present Electronically Signed On 04-19-2025 16:44:18 CDT by Alberta Archer M.D. [email or web address] [id number]
[2025-04-19] MEDS: dilTIAZem 100 MG in sodium chloride 0.9% (add-van) 100 ML 7.5 MG IV (06:38)
--- NOTE | 2025-04-19 07:05 | PC.NURSE ---
[facility] just started complaining of chest pain 05/14. EKG was performed it showed aflutter/tach 94 bpm. Titrated cardizem down from 12 to 7.5. Did not have chest pain at all last night. Does not have anything for pain except for tylenol. I am getting ready to leave but Nette RUSS on CSU is taking her case. EKG is in chart.
--- NOTE | 2025-04-19 07:42 | PC.NURSE ---
She is c/o chest pain this morning. EKG is done. Still in afib. She takes tramadol at home regularly. Nothing ordered for pain other than tylenol at this time. Informed Dr Amado.
[2025-04-19] MEDS: metoprolol succinate ER (24 HR) 50 mg Tablet PO ×2 (08:18→16:32)
[2025-04-19] MEDS: metoprolol tartrate 1 mg/1 mL SDV 5 mL 5 MG IVP (08:19)
[2025-04-19] MEDS: FUROsemide 10 mg/mL SDV 4mL 40 MG IVP ×2 (08:19→16:30)
[2025-04-19] MEDS: fluticasone nasal spray 16gm Btl 1 SPRAY INTRANASAL (08:20)
[2025-04-19 08:40] LABS: Troponin T (5th) Once 16 ng/L (0-10)
--- NOTE | 2025-04-19 09:23 | PC.NURSE ---
Patient requested nicotine patch. Received order from Dr Amado to start nicotine transdermal 21mg daily
--- NOTE | 2025-04-19 09:25 | P.PN_ITS ---
Subjective 2 Subjective: 69-year-old female with diffic ult to control atrial fibrillation came in with heart failure and respiratory distress. She reported chest pain this morning peak at 5/10 and headache peak at 9/10. She is takes Tylenol and tramadol 50 mg at home for this. She used to take 100 mg but states the dose was lowered. Patient states she smokes 3-6 cigarettes a day and has stopped for 9 to 16 days at time 3 times this year and is trying to quit. She uses rare weed has not used methamphetamines in 15 years and no opiate abuse in 20 years Patient states she has a concentrator with nasal cannula O2 she uses about half the day and CPAP she uses nightly. She does not believe the oxygen into her CPAP and does not have a local sleep doctor. She moved here from [facility] to be closer to her daughter but then daughter moved away. Patient states she is on SS DD (disability) and has enough money to maintain her apartment but not quite enough money to fix her car. She intends to live here for the rest of her life. Patient is on Mounjaro 7.5 mg weekly and thinks she was on 10 mg weekly before she is lost about 40 pounds she denies history of pancreatitis or cancer. She does not have thyroid cancer. She drinks 1 shot of alcohol every 3 weeks Patient thinks she contracted HIV from sharing needles doing drugs. 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 She wants full CODE STATUS as discussed today with me Patient states she takes her amiodarone daily and has not missed a dose in 2 weeks. She states that once in a while her heart rate is 96 but typically is 104 and never below 100 Vitals/I&O/Wt Last Vital Signs Temp 97.6 F 04/19/25 04:00 Pulse 95 04/19/25 07:51 Resp 18 04/19/25 07:42 BP 112/72 04/19/25 04:00 Pulse Ox 96 04/19/25 07:42 O2 Del Method Nasal Cannula 04/19/25 07:42 O2 Flow Rate 4 04/19/25 07:42 FiO2 34 04/19/25 00:00 04/18/25 04/19/25 04/19/25 22:59 06:59 14:59 Intake Total 289.925 / 291.175 325.858 / 617.033 240 / 240 Output Total 1750 / 1750 1100 / 2850 Balance -1460.075 / -1458.825 -774.142 / -2232.967 240 / 240 Weight last 48 hrs Weight 95.481 kg Weight 95.481 kg Weight 96.162 kg Weight 95.254 kg Physical Exam 2 Narrative: General well-developed obese female appears comfortable on nasal cannula O2 Mentation alert and orient x 3 Eyes no disconjugate gaze today pupils equally round and reactive to light accommodation CV irregular tachycardic rhythm Lungs clear to auscultation with moderate air movement and trace basilar crackles bilaterally Abdomen positive bowel tones soft nontender but obese with central obesity Calves no tenderness but there no edema Data 04/19/25 03:18 04/19/25 04:21 Micro: Microbiology 04/18/25 11:58 Cryptococcal Antigen (Serum) - Final Blood A&P Assessment and plan 1. Altered mental status: Resolved 2. Atrial fibrillation with RVR: Will give amiodarone bolus and increase amiodarone to 200 mg twice a day 3. COPD (chronic obstructive pulmonary disease): Continue with steroids but avoid nebulizers due to tachycardia 4. Acute combined systolic and diastolic heart failure: She has A-fib flutter with RVR currently and volume overload continue with diuresis 5. HIV disease: I spoke with Dr. Zavala due to altered mental status we will send cryptococcal antigen from the serum 6. Tobacco abuse: Patient was counseled regarding COPD and fast heart rate due to respiratory distress as well as respiratory distress due to fast heart rate has recommended that we control her heart rate better and also that she quit smoking. She states she has had depression with suicidal ideation in the past so Chantix is not as good of choice. Continue with nicotine patch will decrease to 7 mg daily 7. Obstructive sleep apnea: Patient is on CPAP at home and wears it daily for 7 to 8 hours she says PDMP PDMP Reviewed: Not Reviewed Attestations 2 Medical Necessity Statement*: Patient remained in the hospital for additional 1-2 midnights for diuresis and control of her heart rate. Coding Level of Care Code 54235 Diagnoses Altered mental status R41.82 Atrial fibrillation with RVR I48.91 COPD (chronic obstructive pulmonary disease) J44.9 Acute combined systolic and diastolic heart failure I50.41 HIV disease B20 Tobacco abuse Z72.0 Obstructive sleep apnea G47.33 Time Spent (min) 35
--- NOTE | 2025-04-19 09:39 | PC.CHAP ---
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 glost tile shader visit [] Patient/Family/Request visit [] Outpatient visit [] Follow-up visit [] Physician referral [] Code/Alert [] Routine visit [] Staff referral [] Actively dying [] Patient sleeping [] Family support [] [] Out of room [] Palliative care [] [x] Receiving care in room [] Pre-surgical visit [] Trauma [] Long length of stay [] ICU visit [] Other: Relational/Emotional Strength [] Patient feels connected with others/family/visitors/staff [] Distress [] Loneliness/isolation [] Abandonment Spirituality of Patient [] Person of Zoey [] Attends Rastafarian of their Zoey [] Believes in Prayer [] Reads Bible or Gnosticism materials [] There are Spiritual issues to be addressed Camp Maintenance Supervisor Interventions [] Prayer [] Active listening [] Non-anxious presence [] Spiritual/emotional support [] Crisis/trauma care [] Spiritual counseling [] Bereavement support [] Provided bereavement packet [] Provided Bible/devotional materials [] Provided toy/stuffed animal, coloring book to patient or family member [] Provided Communion [] Anointing/[place] [] Salvation [] Completed spiritual assessment [] Other: Impact on Illness or Injury [] Angry [] Fearful [] Anxious [] Often cries [] Exhaustion [] Unable to work [] Unable to attend jew [] Unable to walk/stand [] Unable to read [] Unable to drive [] Unable to eat/drink [] Unable to sleep [] Unable to be with family [] Patient intubated [] Other: Summary Time spent with patient
[2025-04-19] MEDS: lidocaine 2% viscous 15 ML, aluminum-mag hydrox-simethicon 30 ML, sucralfate oral liq 1 GM PO (10:55)
--- NOTE | 2025-04-19 10:59 | PC.NURSE ---
Nicotine patch changed dose per Dr Amado. Old patch removed
--- NOTE | 2025-04-19 12:04 | PC.NURSE ---
patient does not have her Biktarvy with her and no one to bring it in for her. Informed Dr Amado.
--- NOTE | 2025-04-19 12:12 | PC.NURSE ---
Addendum entered by Nette Gonzalez RN 04/19/25 12:19: Unable to obtain home medication at this time due to insurance. Provider notified. Original Note: Patient has Biktarvy on home medication list. Patient does not have her home medication with. spoke with outpatient pharmacy about filling this medication as a meds-to-bed. Informed Dr Amado
[2025-04-19] MEDS: pantoprazole 40 mg SDV IVP (16:30)
[2025-04-20] VITALS (11 sets, daily range): BP systolic 119–145; BP diastolic 77–93; PULSE 61–93; RESP 16–26; TEMP 36.6–37; O2SAT 93–98
[2025-04-20] MEDS: metoprolol succinate ER (24 HR) 50 mg Tablet PO ×2 (08:24→17:17)
--- NOTE | 2025-04-20 08:56 | P.PN_ITS ---
Subjective 2 Subjective: Patient states she feels better with her swelling decreased and heart rate improved. Mucus is little bit yellow-tinged and she demonstrated that for me. Patient lives alone Vitals/I&O/Wt Last Vital Signs Temp 97.8 F 04/20/25 07:57 Pulse 89 04/20/25 08:00 Resp 16 04/20/25 07:57 BP 133/91 04/20/25 07:57 Pulse Ox 93 04/20/25 07:57 O2 Del Method Nasal Cannula 04/20/25 07:57 O2 Flow Rate 2 04/20/25 07:57 FiO2 34 04/19/25 00:00 04/19/25 04/20/25 04/20/25 22:59 06:59 14:59 Intake Total 480 / 1222.00 150 / 1372.00 Output Total 650 / 650 500 / 1150 Balance -170 / 572.00 -350 / 222.00 Weight last 48 hrs Weight 93.576 kg Weight 93.576 kg Weight 95.481 kg Weight 95.481 kg Weight 96.162 kg Weight 95.254 kg Physical Exam 2 Narrative: General well-developed obese female appears comfortable on nasal cannula O2 Mentation alert and orient x 3 Eyes no disconjugate gaze CV irregular borderline tachycardic rhythm Lungs clear to auscultation with moderate air movement prolonged respiratory phase with expiratory wheeze on forced exhalation Abdomen positive bowel tones soft nontender but obese with central obesity Calves no tenderness but there no edema Data 04/19/25 03:18 04/19/25 04:21 A&P Assessment and plan 1. Atrial fibrillation with RVR: Continue amiodarone to 200 mg twice a day Change oral Cardizem to 300 mg extended release daily. Increase activity monitor heart rate response 2. COPD (chronic obstructive pulmonary disease): Patient with diabetes and tachycardia so nebulizers have been just Xopenex as needed. Steroids held yesterday. Will give 2 mg Decadron once a day p.o. starting today we will treat for bronchitis 3. Acute combined systolic and diastolic heart failure: She has A-fib flutter with RVR currently and volume overload continue with diuresis Switch to oral furosemide 40 mg daily with potassium chloride 20 mEq daily labs in the morning. This will represent 24 hours on oral regimen for discharge 4. HIV disease: I spoke with Dr. Kathuria due to altered mental status we will send cryptococcal antigen from the serum Lilliam was not able to be brought in as the patient does not have any family to do so 5. Tobacco abuse: Patient was counseled regarding COPD and fast heart rate due to respiratory distress as well as respiratory distress due to fast heart rate has recommended that we control her heart rate better and also that she quit smoking. She states she has had depression with suicidal ideation in the past so Chantix is not as good of choice. Continue with nicotine patch will decrease to 7 mg daily 6. Obstructive sleep apnea: Patient is on CPAP at home and wears it daily for 7 to 8 hours she says 7. Bronchitis: Start azithromycin 500 mg daily first dose now PDMP PDMP Reviewed: Not Reviewed Attestations 2 Medical Necessity Statement*: Patient will increase activity and be monitored for 24 more hours in the hospital plan discharge tomorrow Coding Level of Care Code 10154 Diagnoses Atrial fibrillation with RVR I48.91 COPD (chronic obstructive pulmonary disease) J44.9 Acute combined systolic and diastolic heart failure I50.41 HIV disease B20 Tobacco abuse Z72.0 Obstructive sleep apnea G47.33 Bronchitis J40 Time Spent (min) 35
[2025-04-20] MEDS: dilTIAZem ER (24HR) 300 mg Capsule PO (09:37)
[2025-04-20] MEDS: pantoprazole 40 mg SDV IVP (17:18)
[2025-04-21] VITALS: PULSE 72; RESP 15; O2SAT 97
[2025-04-21 00:47] VITALS: BP 142/108; PULSE 90; RESP 14; O2SAT 98
[2025-04-21 03:58] LABS: Hepatitis B Surface Antigen Non-Reactive (Nonreactive)
[2025-04-21 04:00] VITALS: BP 133/102; PULSE 81; PULSE 87; RESP 15; RESP 16; TEMP 36.9; O2SAT 97; O2SAT 98
[2025-04-21 04:00] LABS: HIV 1 & 2 Antigen Non-Reactive (Non-Reactiv)
[2025-04-21 08:00] VITALS: BP 142/105; PULSE 100; PULSE 91; RESP 18; RESP 22; TEMP 36.4; O2SAT 96
[2025-04-21] MEDS: metoprolol succinate ER (24 HR) 50 mg Tablet PO (08:48)
[2025-04-21] MEDS: fluticasone nasal spray 16gm Btl 1 SPRAY INTRANASAL (08:50)
[2025-04-21] MEDS: dilTIAZem ER (24HR) 300 mg Capsule PO (08:50)
--- NOTE | 2025-04-21 10:03 | P.DS_ITS ---
Discharge Providers Date of Admission: 04/18/25 13:33 Date of Discharge: April 21, 2025 Attending Provider at Admission: Randal Amado MD Attending Provider at Discharge: Randal Amado MD Primary Care Provider: Alexa Ayers APN Diagnoses at Discharge Discharge Diagnosis 1. Atrial fibrillation with RVR: Details from hospital stay: Increased amiodarone to 200 mg twice a day. Will need to follow-up with PCP to make sure that she is not developing amiodarone induced pulmonary fibrosis Added diltiazem CD 300 mg daily. Continue metoprolol 50 mg twice daily 2. COPD (chronic obstructive pulmonary disease): Details from hospital stay: Improved 3 more days of steroids continue with inhalers and treatment for bronchitis 3. Acute combined systolic and diastolic heart failure: Details from hospital stay: Improved with diuresis furosemide increased to 40 mg daily from 20 mg daily continue same potassium dose 4. HIV disease: Details from hospital stay: Resume Biktarvy. Cryptococcal antigen was negative 5. Tobacco abuse: Details from hospital stay: Patient counseled regarding smoking cessation and she is going to try. She smokes 3 to 5 cigarettes a day and will continue with outpatient nicotine patch 7 mg daily with Nicorette gum as needed. Avoid chronic nicotine replacement as it still causes vascular disease We consider Chantix but the patient has difficulty with depression 6. Obstructive sleep apnea: Details from hospital stay: Resume home CPAP 7. Bronchitis: Details from hospital stay: continue with azithromycin 500 mg daily for 3 more days Reason for Visit Reason for Visit: chest pain Brief History: Katie Andrews is a 69 year old female Sent in from ID clinic where she was seeing Dr. Zavala for HIV care where she was complaining of chest discomfort 8 out of 10 states she was unwell since this morning. She was disheveled blouse partially undone oxygen sat 85% improved with rest. Patient is a known ongoing smoker. Interviewing for me today she is not able to give me any history. She continually falls back asleep. Usha states that the ER nurse checked this out to her but I was not told this by Dr. Bush. There was no mention of the patient having altered mental status and this was not worked up. Patient did receive Solu-Medrol 125 mg IV. pH was 7.35 and pCO2 59. She was started on BiPAP. She has not come out of her obtundation Hospital Course Hospital Course Patient with apparent COPD exacerbation and A-fib [id number] with fluid retention. She improved with BiPAP, diuresis steroids nebulizer treatments and azithromycin for bronchitis. Patient was still an ongoing smoker but had stopped for 9 to 15 days at time 3 times this year so far. She smokes 3-6 cigarettes daily and was started on nicotine patch. Her atrial fibrillation with rapid ventricular rate runs 109 at rest at home. I increased her amiodarone to twice a day then switched her from diltiazem drip to short acting diltiazem and finally 300 mg diltiazem CD daily. Resting heart rate now 91. Her A1c is 9.5 and her blood sugars run 159-327 glimepiride was increased to 4 mg with breakfast and 2 mg with dinner from only 2 mg daily as her dose from home. Notably Janumet was not available here so she will be on that additionally at home Patient was counseled regarding smoking cessation and weight loss as it is important to her diabetes and breathing Physical Exam Narrative: General Well-developed well-nourished obese female in no acute cardiopulmonary distress CV irregular controlled rate Lungs prolonged expiratory phase with diffuse mild wheezing with good air movement Abdomen obese soft nontender Calves trace edema right calf is larger than the left patient states that is chronic and normal for her Discharge Data Studies Completed and Pending Completed Studies During Hospitalization Category Date Time Status XR chest 1V portable [id number] Stat Exams 04/18/25 11:34 Completed Pending at discharge Category Date Time Status BMP [Basic Metabolic Panel] AM LABS Lab 04/22/25 04:00 Ordered Hepatitis C RNA Viral Load Qnt Routine Lab 04/21/25 04:28 Received Magnesium AM LABS Lab 04/22/25 04:00 Ordered Radiology Impressions Chest X-Ray 04/18/25 11:34 IMPRESSION: 1. Slight increase in interstitial and vascular markings, which could represent compressive/atelectatic changes or mild. 2. No other acute disease identified. Laboratory Results WBC 12.02 10^3/uL (3.29-11.43) H 04/19/25 03:18 RBC 4.53 10^6/uL (3.85-5.65) 04/19/25 03:18 Hgb 13.10 g/dL (11.27-16.99) 04/19/25 03:18 Hct 41.2 % (36-47) 04/19/25 03:18 MCV 90.9 fl (85-98) 04/19/25 03:18 MCH 28.9 pg (27-33) 04/19/25 03:18 MCHC 31.8 g/dL (30-55) 04/19/25 03:18 RDW 18.9 % (12.1-15.1) H 04/19/25 03:18 Plt Count 229 10^3/cmm (157-399) 04/19/25 03:18 MPV 9.7 fL (7.4-10.4) 04/19/25 03:18 Neut % (Auto) 85.9 % 04/19/25 03:18 Lymph % (Auto) 9.6 % 04/19/25 03:18 [place] % (Auto) 3.9 % 04/19/25 03:18 Eos % (Auto) 0.0 % 04/19/25 03:18 Baso % (Auto) 0.2 % 04/19/25 03:18 Neut # (Auto) 10.33 10^3/uL (1.8-7.7) H 04/19/25 03:18 Lymph # (Auto) 1.2 10^3/uL (0.8-4.8) 04/19/25 03:18 [place] # (Auto) 0.5 10^3/uL (0.2-0.9) 04/19/25 03:18 Eos # (Auto) 0.0 10^3/uL (0.0-0.8) 04/19/25 03:18 Baso # (Auto) 0.0 10^3/uL (0.0-0.1) 04/19/25 03:18 Nucleated RBC % (auto) 0 % 04/19/25 03:18 Nucleated RBCs # 0.0 /100WBC 04/19/25 03:18 PT 14.50 SECONDS (12.1-14.9) 04/18/25 11:58 INR 1.05 (0.8-1.2) 04/18/25 11:58 Specimen Type Not specified 04/18/25 17:49 Sample Site Not specified 04/18/25 17:49 ABG pH 7.35 (7.35-7.45) 04/18/25 13:42 ABG pCO2 59.0 mmHg (35-45) H 04/18/25 13:42 ABG pO2 72.8 mmHg (80.0-100.0) L 04/18/25 13:42 ABG PO2/FiO2 Ratio 227 04/18/25 13:42 ABG HCO3 32.4 mmol/L (22-26) H 04/18/25 13:42 ABG O2 Saturation 92.6 04/18/25 13:42 ABG Base Excess 4.9 mmol/L (-2.0-2.0) H 04/18/25 13:42 Eddie Test N/a 04/18/25 17:49 VBG pH 7.45 (7.32-7.42) H 04/18/25 17:49 VBG pCO2 45.0 mmHg (41-51) 04/18/25 17:49 VBG pO2 120.0 mmHg (25-40) H 04/18/25 17:49 VBG HCO3 31.5 mmol/L (24-28) H 04/18/25 17:49 VBG Base Excess 6.6 mmol/L (-3.0-3.0) H 04/18/25 17:49 VBG Hematocrit 44.4 % (37-47) 04/18/25 17:49 A-a O2 Gradient 10.9 mmHg (5-10) H 04/18/25 13:42 Hematocrit 43.4 % (37-47) 04/18/25 13:42 Hgb O2 Saturation 90.1 % (95-100) L 04/18/25 13:42 Carboxyhemoglobin 2.5 %THgb (0.4-20.1) 04/18/25 13:42 Methemoglobin 0.2 % (0.4-1.5) L 04/18/25 13:42 Total Hemoglobin 14.2 g/dL (12-16) 04/18/25 13:42 Sodium 148.0 mmol/L (131-143) H 04/18/25 13:42 Potassium 3.7 mmol/L (3.5-5.0) 04/18/25 13:42 Glucose 155.0 mg/dL (70-115) H 04/18/25 13:42 Ionized Calcium 1.2 mmol/L (1.1-1.4) 04/18/25 13:42 O2 Delivery Device Not Reportable 04/18/25 17:49 O2 Liters/Min 3.0 % 04/18/25 13:42 FiO2 32.0 % 04/18/25 13:42 Pocket Setter Lockstitch ID glc 04/18/25 17:49 Sodium 140 mmol/L (136-145) 04/19/25 04:21 Potassium 4.0 mmol/L (3.5-5.1) 04/19/25 04:21 Chloride 97 mmol/L (98-107) L 04/19/25 04:21 Carbon Dioxide 29 mmol/L (22-29) 04/19/25 04:21 Anion Gap 18.0 (5-19) 04/19/25 04:21 BUN 21 mg/dL (8-23) 04/19/25 04:21 Creatinine 1.0 mg/dL (0.5-0.9) H 04/19/25 04:21 GFR Calculation 55.3 mL/min (90-130) L 04/19/25 04:21 Glucose 253 mg/dL (65-115) H 04/19/25 04:21 POC Glucose 167 mg/dL (70-110) H 04/21/25 05:56 Calculated Osmolality 302 mOsm/kg (285-295) H 04/19/25 04:21 Calcium 9.2 mg/dL (8.5-10.5) 04/19/25 04:21 Phosphorus 3.3 mg/dL (2.5-4.5) 04/19/25 08:14 Magnesium 2.2 mg/dL (1.7-2.3) 04/18/25 11:58 Total Bilirubin 0.6 mg/dL (0.15-1.2) 04/19/25 04:21 AST 27 U/L (0-32) 04/19/25 04:21 ALT 42 U/L (0-33) H 04/19/25 04:21 Alkaline Phosphatase 136 U/L (35-105) H 04/19/25 04:21 Troponin T 5th Gen ng/L 16 ng/L (0-10) H 04/19/25 08:14 Troponin T Baseline 23 ng/L (0-10) H 04/18/25 11:58 Troponin T 120 Minute 20.11 ng/L (0-10) H 04/18/25 14:10 Delta Troponin T -2.89 ABS# (0-10) L 04/18/25 14:10 Troponin T Hi Sens 6Hr 17.06 ng/L (0-10) H 04/18/25 16:45 Troponin T Hi Sens 6Hr Delta -5.94 ng/L (0-12) L 04/18/25 16:45 NT-Pro-B Natriuret Pep 7592 pg/mL (0-125) H 04/18/25 11:58 Total Protein 6.7 g/dL (6.6-8.7) 04/19/25 04:21 Albumin 3.9 g/dL (3.5-5.2) 04/19/25 04:21 Globulin 2.8 g/dL (1.3-4.6) 04/19/25 04:21 Lipase 49 U/L (13-60) 04/18/25 11:58 Urine Opiates Screen Negative ng/mL (Negative) 04/18/25 17:00 Ur Barbiturates Screen Negative ng/mL (Negative) 04/18/25 17:00 Ur Phencyclidine Scrn Negative ng/mL (Negative) 04/18/25 17:00 Ur Amphetamines Screen Negative ng/mL (Negative) 04/18/25 17:00 U Benzodiazepines Scrn Negative ng/mL (Negative) 04/18/25 17:00 Urine Cocaine Screen Negative ng/mL (Negative) 04/18/25 17:00 U Marijuana (THC) Screen Positive ng/mL (Negative) H 04/18/25 17:00 Hep Bs Antigen Non-reactive (Nonreactive) 04/21/25 03:15 Hep Bs Antibody > 1000.0 (11.5-1000) H 04/21/25 03:15 Hepatitis C Antibody Reactive (Nonreactive) H 04/21/25 03:15 HIV 1&2 Ab & HIV 1 Ag Non-reactive (Non-Reactiv) 04/21/25 03:15 HIV 1&2 Antibody Reactive (Non-Reactiv) H 04/21/25 03:15 Vitals Last Vital Signs Temp 97.6 F 04/21/25 08:00 Pulse 91 04/21/25 08:00 Resp 18 04/21/25 08:00 BP 142/105 04/21/25 08:00 Pulse Ox 96 04/21/25 08:00 O2 Del Method Nasal Cannula 04/21/25 08:00 O2 Flow Rate 3 04/21/25 08:00 FiO2 34 04/21/25 04:00 Discharge Plan Discharge Patient Disposition: Home Condition: Stable Prescriptions: New azithromycin 250 mg Tablet 500 mg PO DAILY Qty: 6 0RF diltiazem HCl 300 mg Capsule,Extended Release 24hr 300 mg PO DAILY Qty: 30 0RF dexamethasone 4 mg Tablet 2 mg PO Q24H Qty: 3 0RF nicotine 7 mg/24 hr Patch 24 Hour 1 patch transdermal DAILY Qty: 21 0RF nicotine (polacrilex) [Nicorette] 2 mg gum 2 mg buccal Q8H PRN (Reason: nicotine cravings) Qty: 20 0RF Continued Eliquis 5 mg tablet 5 mg PO BID aripiprazole [Abilify] 15 mg tablet 15 mg PO QAM sertraline 100 mg tablet 100 mg PO QAM atorvastatin 80 mg tablet 80 mg PO QAM albuterol sulfate 90 mcg/actuation HFA aerosol inhaler 2 puff inhalation QID PRN (Reason: shortness of breath or wheezing) fluticasone propionate 50 mcg/actuation spray,suspension 1 spray INTRANASAL DAILY Trelegy Ellipta 100-62.5-25 mcg blister with device 1 inh INHALATION DAILY aspirin 81 mg tablet,delayed release (DR/EC) 81 mg PO DAILY Qty: 30 0RF potassium chloride 8 mEq tablet extended release 16 meq PO BID famotidine 40 mg tablet 40 mg PO BID Qty: 30 0RF dapagliflozin propanediol [Farxiga] 10 mg tablet 10 mg PO DAILY Qty: 30 3RF metoprolol succinate 50 mg tablet extended release 24 hr 50 mg PO BID cetirizine 10 mg tablet 10 mg PO DAILY PRN (Reason: Allergy Symptoms) bupropion HCl 300 mg tablet extended release 24 hr 300 mg PO QAM Biktarvy 50-200-25 mg tablet 1 tab PO BEDTIME tramadol 50 mg tablet 50 - 100 mg PO Q4H MDD 6 tabs PRN (Reason: Pain) acetaminophen 500 mg Tablet 1,000 mg PO Q6H PRN (Reason: Pain) methocarbamol 750 mg tablet 750 mg PO TID PRN (Reason: muscle spasm ) gabapentin 300 mg capsule 600 mg PO BID Janumet 50-500 mg tablet 1 tab PO BID nitroglycerin [Nitrostat] 0.4 mg Tablet, Sublingual 0.4 mg SUBLINGUAL Q5M PRN (Reason: Chest Pain) 30 Days Qty: 30 0RF Rx Instructions: do not exceed 3 doses per episode Changed glimepiride 2 mg tablet See Rx Instructions .ROUTE .COMPLEX Qty: 90 0RF Rx Instructions: Take 4 mg with breakfast and 2 mg with dinner amiodarone 200 mg tablet 200 mg PO BID Qty: 90 0RF furosemide 20 mg tablet 40 mg PO QAM Qty: 60 0RF Discharge Order = DC NOW: Discharge Order (Routine); Ordered 04/21/25 Ordered By: Randal Amado Referrals: Alexa Ayers APN [Primary Care Provider, Nurse Practitioner] - 04/25/25 11:00 am Discharge Diet: Cardiac, Diabetic and Low Salt Patient Instructions: Diltiazem (By mouth), Nicotine (Into the mouth), Azithromycin (By mouth), Nicotine (Absorbed through the skin), Dexamethasone (By mouth), How to Stop Smoking (DC), Cigarette Smoking and Your Health (GEN), Opioid Safety, Patient Portal & [facility] Instructions, Quitting Smoking Activity Restrictions/Additional Instructions: Eat 1500 alexandro a day or less to affect weight loss of 2 pounds a week as goal. Avoid high calorie foods and sweets. Stop smoking Resume Biktarvy as soon as possible as we did not have any here for you during your hospitalization Please reschedule with Dr. Zavala Discharge Attestations Time Spent in Discharge Care*: greater than 30 min Time Spent in Smoking Cessation: 5 Status at Discharge: Cognitive status at discharge: cognitively intact , Behavioral status at discharge: cooperative , Quality Metrics Clinical Quality Measures [ No reported AMI, CVA or VTE this stay] Coding Level of Care Code Acute Code for [facility] Fwd Diagnoses Atrial fibrillation with RVR I48.91 COPD (chronic obstructive pulmonary disease) J44.9 Acute combined systolic and diastolic heart failure I50.41 HIV disease B20 Tobacco abuse Z72.0 Obstructive sleep apnea G47.33 Bronchitis J40 Time Spent (min) 40
--- NOTE | 2025-04-21 11:25 | PC.NURSE ---
Patient being discharged to home today. Patient stated, I will be okay without oxygen to get home, I only use it about half of the time anyway. Patient waiting transportation via [employer].
--- NOTE | 2025-04-21 16:33 | PC.NURSE ---
patient discharged to home at 1515. Instruction provided regarding follow up appointments, new medications with changes. Reminded patient to take her home medications when she arrives home. Patient verbalized complete understanding. Patient taken by wheelchair to private vehicle ([employer]). Patient assured this RN that she did not need her oxygen for the ride home. Patient denies pain or needs. No distress observed.
[2025-04-24 14:19] LABS: HEP C RNA Viral Load Quant <1.18 NOT DETECTED Log IU/mL (NOT DETECTED); HEP C RNA Viral Load Quant <15 NOT DETECTED IU/mL (NOT DETECTED)
== END 2025-04-21 15:15 | disposition home or self-care (01) | DRG 291 ==
LOC: ER 13:05 → CSU 13:33
PROVIDERS: Hospitalist; Admitting Provider Internal Medicine; Emergency Provider Emergency Medicine; PCP Nurse Practitioner Family; Visit Provider Internal Medicine
DX: I13.0 Hypertensive heart and chronic kidney disease with heart failure and stage 1 through stage 4 chronic kidney disease, or unspecified chronic kidney disease (principal); I50.41 Acute combined systolic (congestive) and diastolic (congestive) heart failure; J44.0 Chronic obstructive pulmonary disease with (acute) lower respiratory infection; J44.1 Chronic obstructive pulmonary disease with (acute) exacerbation; I48.91 Unspecified atrial fibrillation; N18.9 Chronic kidney disease, unspecified; Z21 Asymptomatic human immunodeficiency virus [HIV] infection status; Z79.899 Other long term (current) drug therapy; F17.210 Nicotine dependence, cigarettes, uncomplicated; G47.33 Obstructive sleep apnea (adult) (pediatric); J40 Bronchitis, not specified as acute or chronic; I27.20 Pulmonary hypertension, unspecified; E66.9 Obesity, unspecified; Z68.35 Body mass index [BMI] 35.0-35.9, adult; I25.10 Atherosclerotic heart disease of native coronary artery without angina pectoris; F32.A Depression, unspecified; E78.5 Hyperlipidemia, unspecified; I25.2 Old myocardial infarction; Z79.82 Long term (current) use of aspirin; Z79.01 Long term (current) use of anticoagulants
CPT/HCPCS: 36415; 36416; 36600; 71045; 80051; 80053; 80306; 82330; 82803; 82805; 82962; 83690; 83735; 83880; 84100; 84484; 85025; 85610; 86403; 86706; 86803; 87340; 87522; 87806; 93005; 94640; 94660; 96365; 96366; 96372; 96375; 96376; 99213; 99291; J0283; J1100; J1815; J1938; J2470; J2919; J3475; J3490; J7614; J7626; J9999; Q0144

== ENCOUNTER 2025-05-15 18:51 | Inpatient (IN) | payer OTHER, SELFPAY ==
--- OUTSIDE RECORDS SUMMARY | 2025-04-21 08:40 | XMS_ITS ---
Author Organization [facility] Address [address] [place] [address] Care Team Providers Care Marketing Information Manager Name Role Phone Javier Ayers Primary Care Provider JAVIER AYERS Unavailable Unavailable REASON FOR VISIT reschdl of HFU Encounters Encounter Location Date Provider Diagnosis [facility] Office [address] [place] [address] 04/21/2025 Javier Ayers Plan Of Treatment Next Appt Details Provider Name:Javier Ayers, 05/26/2025 02:40:00 PM, [address], [place], [address], Progress Notes * JONO GIVENS RDOB:[birth year] (69 yo F)Acc No.[id number]:04/21/2025 Progress Notes Patient: KIMO NEWBYCI Huber Provider: Gerard Ayers CANS VACUUM TESTER :1955 A ge:69 Y S ex:Female Date:04/21/2025 Address:[address] [place] [address], [address], [id number] Subjective: * Chief Complaints: * r eschdl of HFU Care Plan Details* * Electronic signature of Juan Ayers APN on 05/17/2025 at 12:29 PM CDT Sign off status: Pending * Provider: Gerard Ayers CANS VACUUM TESTER Date: 04/21/2025 Generated for Wliliamsi ng/Faadarshg/eTransmitting on: 05/17/2025 12:29 PM CDT
--- OUTSIDE RECORDS SUMMARY | 2025-04-25 06:00 | XMS_ITS ---
Author Organization [facility] Address [address] [place] [address] Care Team Providers Care Academic Services Coordinator Name Role Phone Ayers, [facility] Primary Care Provider AYERS, [facility] Unavailable Unavailable REASON FOR VISIT discharge on 04/19/25 Medications Medication SIG (Take, Route, Frequency, Duration) Notes Start Date End Date Status Lactulose 10 GM/15ML Solution TAKE 15 ML BY MOUTH ONCE DAILY; Duration: 30 Active Lisinopril 10 mg Tablet TAKE ONE TABLET BY MOUTH TWICE DAILY; Duration: 90 Active Lancets - Miscellaneous lancets en vitro daily and prn; Duration: 30 days Active Ondansetron HCl 4 mg Tablet TAKE ONE TABLET BY MOUTH EVERY 4 HOURS NEEDED FOR NAUSEA; Duration: 30 Active Nitroglycerin 0.4 mg Tablet Sublingual DISSOLVE 1 TABLET UNDER THE TONGUE EVERY 5 MINUTES NEEDED FOR CHEST PAIN. DO NOT EXCEED A TOTAL OF 3 DOSES IN 15 MINUTES; Duration: 30 Active Ferrous Sulfate 325 (65 Fe) MG Tablet 1 tablet Orally Three times a Week Active Famotidine 40 mg Tablet TAKE ONE TABLET BY MOUTH At Bedtime; Duration: 30 Active Furosemide 20 mg Tablet TAKE 1 TO 2 TABL ETS BY MOUTH ONCE a DAY; Duration: 30 Active Fluticasone Propionate 50 MCG/ACT Suspension instill ONE SPRAY IN EACH NOSTRIL ONCE a DAY; Duration: 30 Active Janumet 50-500 MG Tablet TAKE ONE TABLET BY MOUTH TWICE DAILY with meals; Duration: 30 Active Eliquis 5 mg Tablet TAKE ONE TABLET BY MOUTH TWICE DAILY; Duration: 30 Active buPROPion HCl ER (XL) 300 mg Tablet Extended Release 24 Hour TAKE ONE TABLET BY MOUTH IN THE MORNING (DOSE CHANGE); Duration: 30 Active Blood Glucose Monitor System w/Device Kit blood sugar device intradermal q day and prn; Duration: 30 days Active Biktarvy 50-200-25 MG Tablet TAKE ONE TABLET BY MOUTH DAILY; Duration: 90 Active Albuterol Sulfate HFA 108 (90 Base) MCG/ACT Aerosol Solution inhale TWO puffs BY MOUTH FOUR TIMES DAILY NEEDED; Duration: 30 Active Amoxicillin-Pot Clavulanate 875-125 MG Tablet TAKE 1 TABLET BY MOUTH TWICE DAILY FOR 5 days Oral; Duration: 5 Days Active Amiodarone HCl 200 MG Tablet TAKE ONE TABLET BY MOUTH TWICE DAILY FOR one WEEK, THEN TAKE 1 TABLET BY MOUTH DAILY Oral; Duration: 53 Days Not-Taki ng predniSONE 10 MG Tablet Oral; Duration: 12 Days Active Mounjaro 10 MG/0.5ML Solution Auto-injector 10 mg Subcutaneous weekly; Duration: 30 days Active Amiodarone HCl 200 MG Tablet TAKE 1 TABLET BY MOUTH TWICE DAILY Oral; Duration: 30 Days Active metFORMIN HCl 500 mg Tablet TAKE ONE TABLET BY MOUTH EVERY DAY with breakfast; Duration: 90 Active Methocarbamol 750 mg Tablet TAKE ONE TABLET BY MOUTH THREE TIMES DAILY NEEDED FOR MUSCLE SPASMS; Duration: 30 Active Atorvastatin Calcium 80 mg Tablet TAKE ONE TABLET BY MOUTH EVERY DAY; Duration: 30 Active Isosorbide Mononitrate ER 60 mg Tablet Extended Release 24 Hour TAKE 1 TABLET BY MOUTH DAILY; Duration: 30 Active Cetirizine HCl 10 mg Tablet TAKE ONE TABLET BY MOUTH DAILY; Duration: 90 Active OneTouch Verio - Strip USE one strip TO test blood sugar ONCE DAILY AND NEEDED as directed; Duration: 30 Active hydrOXYzine HCl 25 mg Tablet TAKE 1 TABLET BY MOUTH EVERY 6 HOURS NEEDED FOR ANXIETY OR withdrawal SYMPTOMS. needs TO last 30 days; Duration: 30 Active Sertraline HCl 100 mg Tablet TAKE ONE TABLET BY MOUTH DAILY; Duration: 90 Active Gabapentin 300 mg Capsule TAKE TWO CAPSU LES BY MOUTH THREE TIMES DAILY; Duration: 30 Active traMADol HCl 50 mg Tablet TAKE 1 TO 2 TA BLETS BY MOUTH EVERY 4 HOURS NEEDED FOR SEVERE pain FOR 30 DAYS; Duration: 30 03/30/2025 Active Trelegy Ellipta 100-62.5-25 MCG/ACT Aerosol Powder Breath Activated 1 puff Inhalation Once a day; Duration: 30 days Active Metoprolol Succinate ER 100 mg Tablet Extended Release 24 Hour TAKE ONE TABLET BY MOUTH EVERY EVENING; Duration: 30 Active Potassium Chloride ER 8 mEq Tablet Extended Release TAKE TWO TABLETS BY MOUTH TWICE DAILY; Duration: 90 Active Celecoxib 100 mg Capsule TAKE ONE CAPSUL E BY MOUTH ONCE a DAY; Duration: 30 Active ARIPiprazole 15 mg Tablet TAKE ONE TABLE T BY MOUTH DAILY; Duration: 90 Active Oxygen - Home Use 2 L NC PRN 08/25/2022 Active OneTouch Verio - Strip USE one strip TO test blood sugar ONCE DAILY AND NEEDED as directed; Duration: 30 Active Encounters Encounter Location Date Provider Diagnosis [facility] Office [address] [facility] [address] [place] [address] 04/25/2025 Alexa Ayers Plan Of Treatment Next Appt Details Provider Name:Alexa Ayers, 05/26/2025 02:40:00 PM, [address] , [address], [place], [address], Progress Notes * JONO GIVENS RDOB:[birth year] (69 yo F)Acc No.[id number]:04/25/2025 Patient: Korey JONO MAZARIEGOS Provider: Gerard Ayers 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1955 A ge:69 Y S ex:Female Date:04/25/2025 Address:[address] [place] [address], [address] Subjective: * Chief Complaints: * D ischarge on 04/19/25 * Medications: T akingAmoxicillin-Pot Clavulanate 875-125 MG Tablet TAKE 1 TABLET BY MOUTH TWICE DAILY FOR 5 days Oral Mounjaro 10 MG/0.5ML Solution Auto-injector 10 mg Subcutaneous weekly predniSONE 10 MG Tablet Oral Amiodarone HCl 200 MG Tablet TAKE 1 TABLET BY MOUTH TWICE DAILY Oral Albuterol Sulfate HFA 108 (90 Base) MCG/ACT Aerosol Solution inhale TWO puffs BY MOUTH FOUR TIMES DAILY NEEDED Biktarvy 50-200-25 MG Tablet TAKE ONE TABLET BY MOUTH DAILY Blood Glucose Monitor System w/Device Kit blood sugar device intradermal q day and prn buPROPion HCl ER (XL) 300 mg Tablet Extended Release 24 Hour TAKE ONE TABLET BY MOUTH IN THE MORNING (DOSE CHANGE) Eliquis 5 mg Tablet TAKE ONE TABLET BY MOUTH TWICE DAILY Famotidine 40 mg Tablet TAKE ONE TABLET BY MOUTH At Bedtime Ferrous Sulfate 325 (65 Fe) MG Tablet 1 tablet Orally Three times a Week Fluticasone Propionate 50 MCG/ACT Suspension instill ONE SPRAY IN EACH NOSTRIL ONCE a DAY Furosemide 20 mg Tablet TAKE 1 TO 2 TABLETS BY MOUTH ONCE a DAY Janumet 50- 500 MG Tablet TAKE ONE TABLET BY MOUTH TWICE DAILY with meals Lactulose 10 GM/15ML Solution TAKE 15 ML BY MOUTH ONCE DAILY Lancets - Miscellaneous lancets en vitro daily and prn Lisinopril 10 mg Tablet TAKE ONE TABLET BY MOUTH TWICE DAILY Nitroglycerin 0.4 mg Tablet Sublingual DISSOLVE 1 TABLET UNDER THE TONGUE EVERY 5 MINUTES NEEDED FOR CHEST PAIN. DO NOT EXCEED A TOTAL OF 3 DOSES IN 15 MINUTES Ondansetron HCl 4 mg Tablet TAKE ONE TABLET BY MOUTH EVERY 4 HOURS NEEDED FOR NAUSEA OneTouch Verio - Strip USE one strip TO test blood sugar ONCE DAILY AND NEEDED as directed Oxygen - Home Use 2 L NC PRN Potassium Chloride ER 8 mEq Tablet Extended Release TAKE TWO TABLETS BY MOUTH TWICE DAILY Metoprolol Succinate ER 100 mg Tablet Extended Release 24 Hour TAKE ONE TABLET BY MOUTH EVERY EVENING ARIPiprazole 15 mg Tablet TAKE ONE TABLET BY MOUTH DAILY Celecoxib 100 mg Capsule TAKE ONE CAPSULE BY MOUTH ONCE a DAY Trelegy Ellipta 100-62.5-25 MCG/ACT Aerosol Powder Breath Activated 1 puff Inhalation Once a day OneTouch Verio - Strip USE one strip TO test blood sugar ONCE DAILY AND NEEDED as directed Sertraline HCl 100 mg Tablet TAKE ONE TABLET BY MOUTH DAILY Gabapentin 300 mg Capsule TAKE TWO CAPSULES BY MOUTH THREE TIMES DAILY traMADol HCl 50 mg Tablet TAKE 1 TO 2 TABLETS BY MOUTH EVERY 4 HOURS NEEDED FOR SEVERE pain FOR 30 DAYS hydrOXYzine HCl 25 mg Tablet TAKE 1 TABLET BY MOUTH EVERY 6 HOURS NEEDED FOR ANXIETY OR withdrawal SYMPTOMS. needs TO last 30 days metFORMIN HCl 500 mg Tablet TAKE ONE TABLET BY MOUTH EVERY DAY with breakfast Atorvastatin Calcium 80 mg Tablet TAKE ONE TABLET BY MOUTH EVERY DAY Methocarbamol 750 mg Tablet TAKE ONE TABLET BY MOUTH THREE TIMES DAILY NEEDED FOR MUSCLE SPASMS Isosorbide Mononitrate ER 60 mg Tablet Extended Release 24 Hour TAKE 1 TABLET BY MOUTH DAILY Cetirizine HCl 10 mg Tablet TAKE ONE TABLET BY MOUTH DAILY Taking Amoxicillin-Pot Clavulanate 875-125 MG Tablet TAKE 1 TABLET BY MOUTH TWICE DAILY FOR 5 days Oral Taking Mounjaro 10 MG/0.5ML Solution Auto-injector 10 mg Subcutaneous weekly Taking predniSONE 10 MG Tablet Oral Taking Amiodarone HCl 200 MG Tablet TAKE 1 TABLET BY MOUTH TWICE DAILY Oral Taking Albuterol Sulfate HFA 108 (90 Base) MCG/ACT Aerosol Solution inhale TWO puffs BY MOUTH FOUR TIMES DAILY NEEDED Taking Biktarvy 50-200-25 MG Tablet TAKE ONE TABLET BY MOUTH DAILY Taking Blood Glucose Monitor System w/Device Kit blood sugar device intradermal q day and prn Taking buPROPion HCl ER (XL) 300 mg Tablet Extended Release 24 Hour TAKE ONE TABLET BY MOUTH IN THE MORNING (DOSE CHANGE) Taking Eliquis 5 mg Tablet TAKE ONE TABLET BY MOUTH TWICE DAILY Taking Famotidine 40 mg Tablet TAKE ONE TABLET BY MOUTH At Bedtime Taking Ferrous Sulfate 325 (65 Fe) MG Tablet 1 tablet Orally Three times a Week Taking Fluticasone Propionate 50 MCG/ACT Suspension instill ONE SPRAY IN EACH NOSTRIL ONCE a DAY Taking Furosemide 20 mg Tablet TAKE 1 TO 2 TABLETS BY MOUTH ONCE a DAY Taking Janumet 50-500 MG Tablet TAKE ONE TABLET BY MOUTH TWICE DAILY with meals Taking Lactulose 10 GM/15ML Solution TAKE 15 ML BY MOUTH ONCE DAILY Taking Lancets - Miscellaneous lancets en vitro daily and prn Taking Lisinopril 10 mg Tablet TAKE ONE TABLET BY MOUTH TWICE DAILY Taking Nitroglycerin 0.4 mg Tablet Sublingual DISSOLVE 1 TABLET UNDER THE TONGUE EVERY 5 MINUTES NEEDED FOR CHEST PAIN. DO NOT EXCEED A TOTAL OF 3 DOSES IN 15 MINUTES Taking Ondansetron HCl 4 mg Tablet TAKE ONE TABLET BY MOUTH EVERY 4 HOURS NEEDED FOR NAUSEA Taking OneTouch Verio - Strip USE one strip TO test blood sugar ONCE DAILY AND NEEDED as directed Taking Oxygen - Home Use 2 L NC PRN Taking Potassium Chloride ER 8 mEq Tablet Extended Release TAKE TWO TABLETS BY MOUTH TWICE DAILY Taking Metoprolol Succinate ER 100 mg Tablet Extended Release 24 Hour TAKE ONE TABLET BY MOUTH EVERY EVENING Taking ARIPiprazole 15 mg Tablet TAKE ONE TABLET BY MOUTH DAILY Taking Celecoxib 100 mg Capsule TAKE ONE CAPSULE BY MOUTH ONCE a DAY Taking Trelegy Ellipta 100-62.5-25 MCG/ACT Aerosol Powder Breath Activated 1 puff Inhalation Once a day Taking OneTouch Verio - Strip USE one strip TO test blood sugar ONCE DAILY AND NEEDED as directed Taking Sertraline HCl 100 mg Tablet TAKE ONE TABLET BY MOUTH DAILY Taking Gabapentin 300 mg Capsule TAKE TWO CAPSULES BY MOUTH THREE TIMES DAILY Taking traMADol HCl 50 mg Tablet TAKE 1 TO 2 TABLETS BY MOUTH EVERY 4 HOURS NEEDED FOR SEVERE pain FOR 30 DAYS Taking hydrOXYzine HCl 25 mg Tablet TAKE 1 TABLET BY MOUTH EVERY 6 HOURS NEEDED FOR ANXIETY OR withdrawal SYMPTOMS. needs TO last 30 days Taking metFORMIN HCl 500 mg Tablet TAKE ONE TABLET BY MOUTH EVERY DAY with breakfast Taking Atorvastatin Calcium 80 mg Tablet TAKE ONE TABLET BY MOUTH EVERY DAY Taking Methocarbamol 750 mg Tablet TAKE ONE TABLET BY MOUTH THREE TIMES DAILY NEEDED FOR MUSCLE SPASMS Taking Isosorbide Mononitrate ER 60 mg Tablet Extended Release 24 Hour TAKE 1 TABLET BY MOUTH DAILY Taking Cetirizine HCl 10 mg Tablet TAKE ONE TABLET BY MOUTH DAILY Not-TakingAmiodarone HCl 200 MG Tablet TAKE ONE TABLET BY MOUTH TWICE DAILY FOR one WEEK, THEN TAKE 1 TABLET BY MOUTH DAILY Oral Not-Taking Amiodarone HCl 200 MG Tablet TAKE ONE TABLET BY MOUTH TWICE DAILY FOR one WEEK, THEN TAKE 1 TABLET BY MOUTH DAILY Oral Plan: * Preventive Medicine: Screenings: A s Listed Below * . L AST WELLNESS VISIT (if today's visit is wellness, use today's date): Date: 0 02/18/2024 B REAST CANCER SCREENING: Prior breast cancer screening: o ccurred more than 5 years ago Provider recommendation: r epeat Refuses further screening C ARE FOR OLDER ADULTS An advanced care directive: h as been discussed Patient was offered the opportunity to discuss advance care planning: Y es Advanced care planning: w as discussed today Patient states she will think about it. Information given to patient. Functional Status N o Impairment for Functional Status Function Status Assessment date 0 03/13/2025 Medication review date 0 03/13/2025 Pain Assessment date 0 03/13/2025 Pain 07/14 C ERVICAL CANCER SCREENING: Cancer screening cervical (age 21-64)?Annual pap smear Date of the last PAP Smear : U nsure of date of last pap Provider recommendation: P atient declines further testing C OLORECTAL CANCER SCREENING: Colorectal screening: w as done more than four years ago Colonoscopy. Patient refuses further testing D EPRESSION SCREENING: Date of most recent screenin 02/18/2024 The patient denies: a nxiety, depressed mood, difficulty sleeping, lack of energy, lack of interest in things that were enjoyable, poor appetite, sadness, thoughts of harming him/herself, thought of harming someone else, trouble concentrating, weight gain, weight loss, any depressive symptoms at this time PHQ inventory: w ith score of 0-4 D IABETIC EYE EXAM Date of last dilated eye exam 0 03/31/2023 Dr Brice Retinopathy Y es Mild, Provider recommendation: yearly eye exams F ALL RISK SCREENING Screening: N o falls in the past year F UNCTIONAL CAPACITY: The patient maintains ability to: b athe herself, feed herself, get dressed, groom herself, lift arms above head, lift legs, move in the house/home, transfer, use the toilet, walk Independent self care: i s still possible V ACCINATIONS: Is patient's pneumococcal vaccine current? Y es Completed vaccinations include: I nfluenza, Prevnar 20 Influenza vaccinations: o ccur routinely u pdated 07/13/2024. Billing Information: * Procedure Codes: * Electronic signature of Juan Ayers APN on 05/17/2025 at 12:29 PM CDT Sign off status: Pending * Provider: Gerard Ayers SHOE CEMENTER Date: 0 04/25/2025 Generated for Lizzy yoo/Rina/Nuraitting on: 0 05/17/2025 12:29 PM CDT
[2025-05-15 18:52] VITALS: BP 147/91; PULSE 94; RESP 17; TEMP 35.6; O2SAT 90; BMI 32.2
--- NOTE | 2025-05-15 19:01 | ECG_ITS ---
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 Measurements Intervals [place] Rate: 89 P: 0 [place]: 0 QRS: 12 QRSD: 106 T: 85 QT: 309 QTc: 376 Interpretive Statements ATRIAL FLUTTER/TACHYCARDIA SEPTAL MYOCARDIAL INFARCTION , OF INDETERMINATE AGE [40+ ms Q WAVE IN V1/V2] POSSIBLE INFERIOR MYOCARDIAL INFARCTION , PROBABLY OLD [30 ms Q WAVE IN II/aVF] Compared to ECG 04/19/2025 06:37:24 Myocardial infarct finding now present T-wave abnormality no longer present Electronically Signed On 05-15-2025 22:44:18 CDT by Alberta Archer M.D. [email or web address]
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
[2025-05-15 19:25] LABS: Hematocrit 44.0 % (36-47); Hemoglobin 14.20 g/dL (11.27-16.99); Mean Corpuscular HGB Conc 32.3 g/dL (30-55); Mean Corpuscular Hemoglobin 29.3 pg (27-33); Mean Corpuscular Volume 90.7 fl (85-98); Nucleated Red Blood Cells % 0 %; Platelet Count 260 10^3/cmm (157-399); Red Blood Count 4.85 10^6/uL (3.85-5.65); White Blood Count 8.15 10^3/uL (3.29-11.43)
[2025-05-15 19:43] LABS: Troponin(5th) Baseline 16 ng/L (0-10)
[2025-05-15 19:56] LABS: Glucose Urine UA 3+ (Normal); Nitrate Urine Negative (Negative); Specific Gravity, Urine 1.017 (1.005-1.030)
[2025-05-15 19:58] LABS: Add Urine Microscopic? YES
[2025-05-15 19:59] LABS: Alanine Aminotransferase 29 U/L (0-33); Albumin Level 4.6 g/dL (3.5-5.2); Alkaline Phosphatase 123 U/L (35-105); Anion Gap 16.1 (5-19); Aspartate Amino Transferase 30 U/L (0-32); Blood Urea Nitrogen 44 mg/dL (8-23); Calcium 9.5 mg/dL (8.5-10.5); Carbon Dioxide 24 mmol/L (22-29); Chloride 107 mmol/L (98-107); Creatinine Clr Calc Pharmacy 24.0336; Globulin 2.6 g/dL (1.3-4.6); Glucose 59 mg/dL (65-115); Osmolality Calculated 305 mOsm/kg (285-295); Potassium 4.1 mmol/L (3.5-5.1); Sodium 143 mmol/L (136-145); Thyroid Stimulating Hormone 0.41 uIU/mL (0.27-4.20); Total Protein 7.2 g/dL (6.6-8.7)
[2025-05-15 20:02] LABS: Acetaminophen < 5.0 ug/mL (10-30); Alcohol Level < 10 mg/dL (0-10); Salicylate < 0.3 mg/dL (3-10)
[2025-05-15 20:03] LABS: HCG Qualitative Urine. Negative (Negative); PCP Screen Urine Negative (Negative); UA Slide Review UA Slide Review Perf
[2025-05-15 20:08] VITALS: BP 117/62; PULSE 91; RESP 22; O2SAT 90
--- NOTE | 2025-05-15 20:11 | CTR_ITS ---
PROCEDURE INFORMATION: Exam: CT Head Without Contrast Exam date and time: 05/15/2025 8:41 PM Age: 69 years old Clinical indication: Altered mental status/memory loss; Confusion or disorientation; Additional info: Encephalopathy, altered mental status TECHNIQUE: Imaging protocol: Computed tomography of the head without contrast. Radiation optimization: All CT scans at this facility use at least one of these dose optimization techniques: automated exposure control; mA and/or kV adjustment per patient size (includes targeted exams where dose is matched to clinical indication); or iterative reconstruction. COMPARISON: CT head wo con* [id number] 03/20/2025 5:28 AM RADIATION DOSE METRICS: Total DLP (mGy-cm): 1075.15 FINDINGS: Motion artifact limits exam. Brain: See Cerebral ventricles finding. Cerebral ventricles: Mild involutional changes of the ventricles and sulci. Paranasal sinuses: Visualized sinuses are unremarkable. No fluid levels. Mastoid air cells: Visualized mastoid air cells are well aerated. Bones: Unremarkable. No acute fracture. Soft tissues: Unremarkable. CT/CT head wo con* [id number] IMPRESSION: No definite acute intracranial abnormality.
--- NOTE | 2025-05-15 20:12 | CTR_ITS ---
PROCEDURE INFORMATION: Exam: CT Abdomen And Pelvis Without Contrast Exam date and time: 05/15/2025 8:45 PM Age: 69 years old Clinical indication: Other: Renal failure; Additional info: Renal failure, R/O obstructive uropathy TECHNIQUE: Imaging protocol: Computed tomography of the abdomen and pelvis without contrast. Radiation optimization: All CT scans at this facility use at least one of these dose optimization techniques: automated exposure control; mA and/or kV adjustment per patient size (includes targeted exams where dose is matched to clinical indication); or iterative reconstruction. COMPARISON: CT abdomen pelvis wo con [id number] 12/25/2022 7:24 PM RADIATION DOSE METRICS: Total DLP (mGy-cm): 927.33 FINDINGS: Lungs: Few scattered strands of the lung bases, nonspecific although commonly chronic. Heart: Query mild cardiomegaly. Aortic and coronary atherosclerosis. Liver: Normal. No mass. Gallbladder and biliary ducts: Gallbladder stones or sludge with mild wall thickening, can not exclude cholecystitis, consider ultrasound for further characterization. Pancreas: Normal. No ductal dilation. Spleen: Normal. No splenomegaly. Adrenal glands: Normal. No mass. Kidneys and ureters: Few nonspecific although commonly benign renal cysts. No definitive radiographic evidence of acute obstructive uropathy or radiopaque renal calculi. Stomach and bowel: Colonic diverticulosis without definite significant acute inflammatory changes. Appendix: No evidence of appendicitis. Intraperitoneal space: Unremarkable. No free air. No significant fluid collection. Vasculature: Aortic atherosclerosis. Lymph nodes: Unremarkable. No enlarged lymph nodes. Urinary bladder: Unremarkable as visualized. Reproductive: Unremarkable as visualized. Bones/joints: Unremarkable. No acute fracture. Soft tissues: Unremarkable. CT/CT kidney stone [id number] IMPRESSION: 1. No definitive radiographic evidence of acute obstructive uropathy or radiopaque renal calculi. 2. Gallbladder stones or sludge with mild wall thickening, can not exclude cholecystitis, consider ultrasound for further characterization. 3. Aortic atherosclerosis. COMMENTS: Consistent with the [employer]'s Incidental Findings Committee white paper (J Am Chiara Radiol 2018): Any incidental renal lesion less than 1 cm or classified as too small to characterize, or any incidental cystic renal lesion characterized as simple-appearing, is likely benign. No follow-up imaging is recommended for these lesions per consensus recommendations based on imaging criteria.
--- NOTE | 2025-05-15 20:58 | ECG_ITS ---
[facility] Test Date: 2025-05-15 Pat Name: Katie Andrews Department: Room: Gender: Female Manager Electrical: : 1955 Requested By: Pamela Dhaliwal Order Number: [id number] Reading MD: ROMY FERRO Measurements Intervals Gordon Rate: 79 P: 0 VA: 0 QRS: 2 QRSD: 92 T: -8 QT: 403 QTc: 464 Interpretive Statements ATRIAL FLUTTER/TACHYCARDIA SEPTAL MYOCARDIAL INFARCTION , OF INDETERMINATE AGE [40+ ms Q WAVE IN V1/V2] POSSIBLE INFERIOR MYOCARDIAL INFARCTION , OF INDETERMINATE AGE [30 ms Q WAVE IN II/aVF] Compared to ECG 05/15/2025 19:01:29 No significant changes Electronically Signed On 05-16-2025 20:17:25 CDT by ROMY FERRO [email or web address]
[2025-05-15 21:28] LABS: Troponin 5 2HR 11.23 ng/L (0-10)
[2025-05-15 21:31] LABS: Troponin 5 2HR Delta -4.77 ABS# (0-10)
[2025-05-15 21:41] VITALS: BP 119/72; PULSE 75; RESP 14; O2SAT 94
[2025-05-15 22:45] VITALS: BP 116/68; PULSE 72; RESP 16; O2SAT 95
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
[2025-05-15 23:29] LABS: ABG PCO2 54.2 mmHg (35-45); ABG PH Result 7.27 (7.35-7.45); Alveolar-Arterial Oxygen Gradi 10.4 mmHg (5-10); Arterial Blood Gas Hematocrit 41.3 % (37-47); Blood Gas Allen Test Pos; Blood Gas LPM 3.5 %; Blood Gas Operator Identificat gerca; Blood Gas Sample Site Brachial, right; Blood Gas Sample Type Arterial; Carboxyhemoglobin 2.8 %THgb (0.4-20.1); Glucose Level-ABG 111.0 mg/dL (70-115); HCO3 ABG 24.9 mmol/L (22-26); Ionized Calcium Level - ABG 1.2 mmol/L (1.1-1.4); Methemoglobin 1.2 % (0.4-1.5); Oxygen Saturation ABG 96.8; PO2 ABG 95.4 mmHg (80.0-100.0); PO2 FiO2 Ratio Arterial Blood 280; Potassium Level - ABG 3.6 mmol/L (3.5-5.0); Sodium Level - ABG 145.0 mmol/L (131-143)
[2025-05-15 23:34] VITALS: BP 113/65; PULSE 63; RESP 17; O2SAT 100
[2025-05-16] VITALS (17 sets, daily range): BP systolic 135–176; BP diastolic 62–109; PULSE 60–98; RESP 12–24; TEMP 36.3–36.9; O2SAT 93–99
--- NOTE | 2025-05-16 01:00 | ECG_ITS ---
[email or web address] [place] [facility] Date: 2025-05-16 Pat Name: Katie Andrews Department: Room: 112 Gender: Female Measurement Psychologist: : 1955 Requested By: Pamela Dhaliwal Order Number: [id number] Dunia MD: Nicholas Hooper M.D. Measurements Intervals [place] Rate: 88 P: 75 KS: 170 QRS: 79 QRSD: 107 T: 72 QT: 390 QTc: 472 Interpretive Statements SINUS RHYTHM POSSIBLE LEFT ATRIAL ENLARGEMENT [-0.1mV P-WAVE IN V1/V2] Compared to ECG 05/15/2025 20:52:43 Atrial flutter no longer present Myocardial infarct finding no longer present Electronically Signed On 05-17-2025 22:29:15 CDT by Nicholas Hooper M.D. [email or web address]
[2025-05-16 01:58] LABS: Troponin 5 6HR 15.67 ng/L (0-10)
[2025-05-16 02:01] LABS: Anion Gap 13.4 (5-19); Blood Urea Nitrogen 36 mg/dL (8-23); Calcium 9.4 mg/dL (8.5-10.5); Carbon Dioxide 27 mmol/L (22-29); Chloride 108 mmol/L (98-107); Creatinine Clr Calc Pharmacy 33.9733; Glucose 79 mg/dL (65-115); Osmolality Calculated 305 mOsm/kg (285-295); Potassium 4.4 mmol/L (3.5-5.1); Sodium 144 mmol/L (136-145)
[2025-05-16 02:02] LABS: Troponin 5 6HR Delta -0.33 ng/L (0-12)
[2025-05-16] MEDS: dilTIAZem ER (24HR) 300 mg Capsule PO (07:58)
[2025-05-16] MEDS: metoprolol succinate ER (24 HR) 50 mg Tablet PO ×2 (07:58→17:31)
[2025-05-16] MEDS: fluticasone nasal spray 16gm Btl 1 SPRAY INTRANASAL (07:59)
--- NOTE | 2025-05-16 09:35 | PC.NURSE ---
At ~0845, place bipap on patient per Dr Jackson.
--- NOTE | 2025-05-16 09:52 | PC.CHAP ---
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 slip mixer visit [] Patient/Family/Request visit [] Outpatient visit [] Follow-up visit [] Physician referral [] Code/Alert [] Routine visit [] Staff referral [] Actively dying [x] Patient sleeping [] Family support [] [] Out of room [] Palliative care [] [] Receiving care in room [] Pre-surgical visit [] Trauma [] Long length of stay [] ICU visit [] Other: Relational/Emotional Strength [] Patient feels connected with others/family/visitors/staff [] Distress [] Loneliness/isolation [] Abandonment Spirituality of Patient [] Person of Zoey [] Attends Mormonism of their [place] [] Believes in Prayer [] Reads Bible or Catholic materials [] There are Spiritual issues to be addressed Systems Designer Interventions [] Prayer [] Active listening [] Non-anxious presence [] Spiritual/emotional support [] Crisis/trauma care [] Spiritual counseling [] Bereavement support [] Provided bereavement packet [] Provided Bible/devotional materials [] Provided toy/stuffed animal, coloring book to patient or family member [] Provided Communion [] Anointing/[place] [] Salvation [] Completed spiritual assessment [] Other: Impact on Illness or Injury [] Angry [] Fearful [] Anxious [] Often cries [] Exhaustion [] Unable to work [] Unable to attend yazdanism [] Unable to walk/stand [] Unable to read [] Unable to drive [] Unable to eat/drink [] Unable to sleep [] Unable to be with family [] Patient intubated [] Other: Summary Time spent with patient
[2025-05-16 10:43] LABS: PCP Screen Urine Negative (Negative)
--- NOTE | 2025-05-16 11:12 | PC.NURSE ---
Patient refusing to wear bipap at this time.
--- NOTE | 2025-05-16 12:29 | P.PN_ITS ---
Subjective 2 Subjective: More alter today, still somnolent during exam. Vitals/I&O/Wt Last Vital Signs Temp 97.6 F 05/16/25 11:05 Pulse 60 05/16/25 11:22 Resp 16 05/16/25 11:22 BP 135/64 05/16/25 11:05 Pulse Ox 97 05/16/25 11:22 O2 Del Method Nasal Cannula 05/16/25 11:22 O2 Flow Rate 2 05/16/25 11:22 FiO2 25 05/16/25 09:31 05/15/25 05/16/25 05/16/25 22:59 06:59 14:59 Intake Total 1250 / 1250 1240 / 1240 Output Total 350 / 350 500 / 500 Balance 900 / 900 740 / 740 Weight last 48 hrs Weight 96.343 kg Weight 95.345 kg Weight 85.275 kg Physical Exam 2 Const: COMMON NORMALS: no acute distress and patient oriented x3 N UTRITIONAL APPEARANCE: obese OTHER: somnolent during exam. HENMT: COMMON NORMALS: normocephalic and atraumatic HEAD & SCALP: n ormocephalic and atraumatic Eye: COMMON NORMALS: Equal, round and reactive pupils present and EOMs intact bilaterally PUPIL: Yes Equal, round and reactive pupils present Lymph: LYMPHATIC: no lymphadenopathy noted and no lymphedema noted Resp: COMMON NORMALS: normal respiratory effort and clear to auscultation bilaterally AUSCULTATION: clear to auscultation bilaterally Cardio: COMMON NORMALS: regular rate, regular rhythm, No gallops present (Cardio), No murmurs present (Cardio) and No rub (Cardio) RATE: regular rate RHYTHM: regular rhythm GI: COMMON NORMALS: Soft to palpation, non-tender and no masses PALPATION: Yes Soft to palpation Extremity: COMMON NORMALS: normal to inspection and full ROM Neuro: COMMON NORMALS: patient oriented x3 and CN's II-XII intact bilaterally Skin: COMMON NORMALS: no rashes or lesions noted and no wounds GENERAL SKIN EXAM: no rashes or lesions noted Data 05/15/25 19:15 05/16/25 01:21 A&P Assessment and plan 1. Acute encephalopathy: 2. Dehydration: Plan: 69 year old female presenting with encephalopathy. 1. Acute encephalopathy: Acute on chronic hypercarbic respiratory failure Suspected CO2 retention plus dehydration and drugs. Suspect COPD - UDS positive positive for THC. - Patient felt strange 30 minutes after smoking weed that she obtained not from a dispensary - can get outpatient PFTs if not already done. 2. Dehydration: JOSE, unclear baseline, appears to be CKD IIIb Fluid boluses on admission - cont. NS at 75 ml/hr - hold NSAIDs and janument - possible overdiuresis on lasix at home. 3. Chest pain: Patient denies chest pain currently - mild troponin elevation which is lower than recent labs. Troponin has been chronically elevated. - recent stress test negative for ischemia - seen by outpatient cardiology recently 4. Tobacco abuse: Resume nicotine patch. Patient will be counseled again when she is more awake 5. HIV disease: Continue home Biktarvy which is in her CPAP carrying case. CPAP was not in the care and case 6. Atrial fibrillation: Continue with amiodarone diltiazem and beta-home rate control 7. Obstructive sleep apnea: - increased BiPAP to home settings 18/10 FiO2 25% DMII - labile blood sugars - monitor inpatient, likely needs more consistency with diet as outpatient. Afib - cont. eliquis, BB, amiodarine PPx: home eliquis PDMP PDMP Reviewed: Not Reviewed Attestations 2 Medical Necessity Statement*: Anticipate > 2 midnights for hypercarbia with encephalopathy Time Spent in Patient Care: 16 - 35 minutes (>than 50% of time sp ent in counselling and/or direct pt care on unit) . Coding Level of Care Code Acute Code for [facility] Fwd Diagnoses Acute encephalopathy G93.40 Dehydration E86.0
[2025-05-16] MEDS: BICTEGRAV EMTRICIT TENOFOV ALA 1 EACH PO (20:59)
[2025-05-17] VITALS (9 sets, daily range): BP systolic 153–168; BP diastolic 83–107; PULSE 81–94; RESP 15–24; TEMP 36.4–36.9; O2SAT 93–96
[2025-05-17 04:06] LABS: Hematocrit 42.8 % (36-47); Hemoglobin 13.60 g/dL (11.27-16.99); Mean Corpuscular HGB Conc 31.8 g/dL (30-55); Mean Corpuscular Hemoglobin 30.2 pg (27-33); Mean Corpuscular Volume 94.9 fl (85-98); Nucleated Red Blood Cells % 0 %; Platelet Count 177 10^3/cmm (157-399); Red Blood Count 4.51 10^6/uL (3.85-5.65); White Blood Count 7.14 10^3/uL (3.29-11.43)
[2025-05-17 04:27] LABS: Anion Gap 11.6 (5-19); Blood Urea Nitrogen 21 mg/dL (8-23); Calcium 9.4 mg/dL (8.5-10.5); Carbon Dioxide 28 mmol/L (22-29); Chloride 110 mmol/L (98-107); Creatinine Clr Calc Pharmacy 47.3288; Glucose 110 mg/dL (65-115); Osmolality Calculated 304 mOsm/kg (285-295); Potassium 4.6 mmol/L (3.5-5.1); Sodium 145 mmol/L (136-145)
[2025-05-17] MEDS: metoprolol succinate ER (24 HR) 50 mg Tablet PO (08:37)
[2025-05-17] MEDS: dilTIAZem ER (24HR) 300 mg Capsule PO (08:37)
[2025-05-17] MEDS: fluticasone nasal spray 16gm Btl 1 SPRAY INTRANASAL (08:42)
--- NOTE | 2025-05-17 09:16 | P.DS_ITS ---
Discharge Providers Date of Admission: 05/15/25 23:24 Date of Discharge: May 17, 2025 Attending Provider at Admission: Randal Amado MD Attending Provider at Discharge: Fredi Jackson MD Primary Care Provider: Alexa Ayers APN Diagnoses at Discharge Discharge Diagnosis 1. Acute encephalopathy: 2. Dehydration: Reason for Visit Reason for Visit: AMS Brief History: 69 year old female presenting with encep halopathy. Hospital Course Hospital Course 1. Acute encephalopathy: Acute on chronic hypercarbic respiratory failure Suspected CO2 retention plus dehydration and drugs. Suspect COPD - UDS positive for THC. - Patient felt strange 30 minutes after smoking weed that she obtained not from a dispensary - can get outpatient PFTs if not already done. - continue home inhalers or eq. - mentation improved this AM. 2. Dehydration: JOSE, unclear baseline, appears to be CKD IIIb Fluid boluses on admission - cont. NS at 75 ml/hr - hold NSAIDs and janument - possible overdiuresis on lasix at home. - creatinine/GFR improving. 3. Chest pain: Patient denies chest pain currently - mild troponin elevation which is lower than recent labs. Troponin has been chronically elevated. - recent stress test negative for ischemia - seen by outpatient cardiology recently 4. Tobacco abuse: Resume nicotine patch. Patient will be counseled again when she is more awake 5. HIV disease: Continue home Biktarvy which is in her CPAP carrying case. CPAP was not in the care and case 6. Atrial fibrillation: Continue with amiodarone diltiazem and beta-home rate control 7. Obstructive sleep apnea: - increased BiPAP to home settings 18/10 FiO2 25% DMII - labile blood sugars - monitor inpatient, likely needs more consistency with diet as outpatient. PPx: home eliquis Disposition: - discharge planning for today. Physical Exam Const: COMMON NORMALS: no acute distress and patient oriented x3 NUTRI TIONAL APPEARANCE: obese OTHER: No somnolence this AM. HENMT: COMMON NORMALS: normocephalic and atraumatic HEAD & SCALP: normocephalic and atraumatic Eye: COMMON NORMALS: Equal, round and reactive pupils present and EOMs intact bilaterally PUPIL: Yes Equal, round and reactive pupils present Lymph: LYMPHATIC: no lymphadenopathy noted and no lymphedema noted Resp: COMMON NORMALS: normal respiratory effort and clear to auscultation bilaterally AUSCULTATION: clear to auscultation bilaterally Cardio: COMMON NORMALS: regular rate, regular rhythm, No gallops present (Cardio), No murmurs present (Cardio) and No rub (Cardio) RATE: regular rate RHYTHM: regular rhythm GI: COMMON NORMALS: Soft to palpation, non-tender and no masses PALPATION: Yes Soft to palpation Extremity: COMMON NORMALS: normal to inspection and full ROM Neuro: COMMON NORMALS: patient oriented x3 and CN's II-XII intact bilaterally Skin: COMMON NORMALS: no rashes or lesions noted and no wounds GENERAL SKIN EXAM: no rashes or lesions noted Discharge Data Studies Completed and Pending Completed Studies During Hospitalization Category Date Time Status CT head wo con* [id number] Stat Cat Scan 05/15/25 20:[address] kidney stone [id number] Stat Cat Scan 05/15/25 20:12 Completed Pending at discharge Category Date Time Status Basic Metabolic Panel AM LABS Lab 05/18/25 04:00 Ordered Radiology Impressions Head CT 05/15/25 20:11 IMPRESSION: No definite acute intracranial abnormality. Abdomen/Pelvis CT 05/15/25 20:12 IMPRESSION: 1. No definitive radiographic evidence of acute obstructive uropathy or radiopaque renal calculi. 2. Gallbladder stones or sludge with mild wall thickening, can not exclude cholecystitis, consider ultrasound for further characterization. 3. Aortic atherosclerosis. COMMENTS: Consistent with the [employer]'s Incidental Findings Committee white paper (J Am Chiara Radiol 2018): Any incidental renal lesion less than 1 cm or classified as too small to characterize, or any incidental cystic renal lesion characterized as simple-appearing, is likely benign. No follow-up imaging is recommended for these lesions per consensus recommendations based on imaging criteria. Laboratory Results WBC 7.14 10^3/uL (3.29-11.43) 05/17/25 03:53 RBC 4.51 10^6/uL (3.85-5.65) 05/17/25 03:53 Hgb 13.60 g/dL (11.27-16.99) 05/17/25 03:53 Hct 42.8 % (36-47) 05/17/25 03:53 MCV 94.9 fl (85-98) 05/17/25 03:53 MCH 30.2 pg (27-33) 05/17/25 03:53 MCHC 31.8 g/dL (30-55) 05/17/25 03:53 RDW 18.1 % (12.1-15.1) H 05/17/25 03:53 Plt Count 177 10^3/cmm (157-399) 05/17/25 03:53 MPV 9.9 fL (7.4-10.4) 05/17/25 03:53 Neut % (Auto) 63.4 % 05/17/25 03:53 Lymph % (Auto) 24.6 % 05/17/25 03:53 [place] % (Auto) 9.1 % 05/17/25 03:53 Eos % (Auto) 1.5 % 05/17/25 03:53 Baso % (Auto) 1.0 % 05/17/25 03:53 Neut # (Auto) 4.52 10^3/uL (1.8-7.7) 05/17/25 03:53 Lymph # (Auto) 1.8 10^3/uL (0.8-4.8) 05/17/25 03:53 [place] # (Auto) 0.7 10^3/uL (0.2-0.9) 05/17/25 03:53 Eos # (Auto) 0.1 10^3/uL (0.0-0.8) 05/17/25 03:53 Baso # (Auto) 0.1 10^3/uL (0.0-0.1) 05/17/25 03:53 Nucleated RBC % (auto) 0 % 05/17/25 03:53 Nucleated RBCs # 0.0 /100WBC 05/17/25 03:53 Specimen Type Arterial 05/15/25 23:17 Sample Site Brachial, right 05/15/25 23:17 ABG pH 7.27 (7.35-7.45) L 05/15/25 23:17 ABG pCO2 54.2 mmHg (35-45) H 05/15/25 23:17 ABG pO2 95.4 mmHg (80.0-100.0) 05/15/25 23:17 ABG PO2/FiO2 Ratio 280 05/15/25 23:17 ABG HCO3 24.9 mmol/L (22-26) 05/15/25 23:17 ABG O2 Saturation 96.8 05/15/25 23:17 ABG Base Excess -2.7 mmol/L (-2.0-2.0) L 05/15/25 23:17 Eddie Test Pos 05/15/25 23:17 A-a O2 Gradient 10.4 mmHg (5-10) H 05/15/25 23:17 Hematocrit 41.3 % (37-47) 05/15/25 23:17 Hgb O2 Saturation 92.9 % (95-100) L 05/15/25 23:17 Carboxyhemoglobin 2.8 %THgb (0.4-20.1) 05/15/25 23:17 Methemoglobin 1.2 % (0.4-1.5) 05/15/25 23:17 Total Hemoglobin 13.5 g/dL (12-16) 05/15/25 23:17 Sodium 145.0 mmol/L (131-143) H 05/15/25 23:17 Potassium 3.6 mmol/L (3.5-5.0) 05/15/25 23:17 Glucose 111.0 mg/dL (70-115) 05/15/25 23:17 Ionized Calcium 1.2 mmol/L (1.1-1.4) 05/15/25 23:17 O2 Delivery Device Nc 05/15/25 23:17 O2 Liters/Min 3.5 % 05/15/25 23:17 FiO2 34.0 % 05/15/25 23:17 Lpn Home Health ID [email or web address] 05/15/25 23:17 Sodium 145 mmol/L (136-145) 05/17/25 03:53 Potassium 4.6 mmol/L (3.5-5.1) 05/17/25 03:53 Chloride 110 mmol/L (98-107) H 05/17/25 03:53 Carbon Dioxide 28 mmol/L (22-29) 05/17/25 03:53 Anion Gap 11.6 (5-19) 05/17/25 03:53 BUN 21 mg/dL (8-23) 05/17/25 03:53 Creatinine 1.3 mg/dL (0.5-0.9) H 05/17/25 03:53 GFR Calculation 40.9 mL/min (90-130) L 05/17/25 03:53 Glucose 110 mg/dL (65-115) 05/17/25 03:53 POC Glucose 117 mg/dL (70-110) H 05/17/25 06:03 Calculated Osmolality 304 mOsm/kg (285-295) H 05/17/25 03:53 Calcium 9.4 mg/dL (8.5-10.5) 05/17/25 03:53 Total Bilirubin 0.4 mg/dL (0.15-1.2) 05/15/25 19:15 AST 30 U/L (0-32) 05/15/25 19:15 ALT 29 U/L (0-33) 05/15/25 19:15 Alkaline Phosphatase 123 U/L (35-105) H 05/15/25 19:15 Troponin T Baseline 16 ng/L (0-10) H 05/15/25 19:15 Troponin T 120 Minute 11.23 ng/L (0-10) H 05/15/25 21:05 Delta Troponin T -4.77 ABS# (0-10) L 05/15/25 21:05 Troponin T Hi Sens 6Hr 15.67 ng/L (0-10) H 05/16/25 01:21 Troponin T Hi Sens 6Hr Delta -0.33 ng/L (0-12) L 05/16/25 01:21 Total Protein 7.2 g/dL (6.6-8.7) 05/15/25 19:15 Albumin 4.6 g/dL (3.5-5.2) 05/15/25 19:15 Globulin 2.6 g/dL (1.3-4.6) 05/15/25 19:15 TSH 0.41 uIU/mL (0.27-4.20) 05/15/25 19:15 HCG, Qual Negative (Negative) 05/15/25 19:49 Urine Color Yellow (Yellow) 05/15/25 19:49 Urine Appearance Clear (CLEAR) 05/15/25 19:49 Urine pH 5.5 (5-7) 05/15/25 19:49 Ur Specific [place] 1.017 (1.005-1.030) 05/15/25 19:49 Urine Protein 1+ (Negative) A 05/15/25 19:49 Urine Glucose (UA) 3+ (Normal) H 05/15/25 19:49 Urine Ketones Negative (Negative) 05/15/25 19:49 Urine Blood Negative (Negative) 05/15/25 19:49 Urine Nitrate Negative (Negative) 05/15/25 19:49 Urine Bilirubin Negative (Negative) 05/15/25 19:49 Urine Urobilinogen 0.2 mg/dL (Negative) 05/15/25 19:49 Ur Leukocyte Esterase Negative (Negative) 05/15/25 19:49 Urine RBC 0-2 /hpf (0-2) 05/15/25 19:49 Urine WBC 0-5 /hpf (0-5) 05/15/25 19:49 Ur Squamous Epith Cells 0-5 /hpf (0-5) 05/15/25 19:49 Amorphous Sediment Not Reportable 05/15/25 19:49 Urine Bacteria None seen /hpf (NONE) 05/15/25 19:49 Hyaline Casts 2.46 /lpf 05/15/25 19:49 Salicylates < 0.3 mg/dL (3-10) L 05/15/25 19:15 Urine Opiates Screen Negative ng/mL (Negative) 05/16/25 10:17 Acetaminophen < 5.0 ug/mL (10-30) L 05/15/25 19:15 Ur Barbiturates Screen Negative ng/mL (Negative) 05/16/25 10:17 Ur Phencyclidine Scrn Negative ng/mL (Negative) 05/16/25 10:17 Ur Amphetamines Screen Negative ng/mL (Negative) 05/16/25 10:17 U Benzodiazepines Scrn Negative ng/mL (Negative) 05/16/25 10:17 Urine Cocaine Screen Negative ng/mL (Negative) 05/16/25 10:17 U Marijuana (THC) Screen Positive ng/mL (Negative) H 05/16/25 10:17 Ethyl Alcohol < 10 mg/dL (0-10) 05/15/25 19:15 Vitals Last Vital Signs Temp 97.6 F 05/17/25 08:00 Pulse 94 05/17/25 08:00 Resp 24 H 05/17/25 08:00 BP 168/107 05/17/25 08:00 Pulse Ox 93 05/17/25 08:00 O2 Del Method Nasal Cannula 05/17/25 08:00 O2 Flow Rate 2 05/17/25 08:00 FiO2 21 05/16/25 20:00 Discharge Plan Discharge Patient Disposition: Home Condition: Stable Prescriptions: Continued Eliquis 5 mg tablet 5 mg PO BID aripiprazole [Abilify] 15 mg tablet 15 mg PO DAILY sertraline 100 mg tablet 100 mg PO DAILY atorvastatin 80 mg tablet 80 mg PO QPM albuterol sulfate 90 mcg/actuation HFA aerosol inhaler 2 puff inhalation QID PRN (Reason: shortness of breath or wheezing) fluticasone propionate 50 mcg/actuation spray,suspension 1 spray INTRANASAL DAILY Trelegy Ellipta 100-62.5-25 mcg blister with device 1 inh INHALATION DAILY aspirin 81 mg tablet,delayed release (DR/EC) 81 mg PO DAILY Qty: 30 0RF potassium chloride 8 mEq tablet extended release 16 meq PO BID famotidine 40 mg tablet 40 mg PO BID Qty: 30 0RF dapagliflozin propanediol [Farxiga] 10 mg tablet 10 mg PO DAILY Qty: 30 3RF metoprolol succinate 50 mg tablet extended release 24 hr 50 mg PO BID diltiazem HCl 300 mg Capsule,Extended Release 24hr 300 mg PO DAILY Qty: 30 0RF dexamethasone 4 mg Tablet 2 mg PO Q24H Qty: 3 0RF amiodarone 200 mg tablet 200 mg PO BID Qty: 90 0RF nicotine (polacrilex) [Nicorette] 2 mg gum 2 mg buccal Q8H PRN (Reason: nicotine cravings) Qty: 20 0RF glimepiride 2 mg tablet See Rx Instructions .ROUTE .COMPLEX Qty: 90 0RF Rx Instructions: Take 4 mg with breakfast and 2 mg with dinner cetirizine 10 mg tablet 10 mg PO DAILY PRN (Reason: Allergy Symptoms) Biktarvy 50-200-25 mg tablet 1 tab PO BEDTIME tramadol 50 mg tablet 50 - 100 mg PO Q4H MDD 6 tabs PRN (Reason: Pain) acetaminophen 500 mg Tablet 1,000 mg PO Q6H PRN (Reason: Pain) methocarbamol 750 mg tablet 750 mg PO TID PRN (Reason: muscle spasm ) gabapentin 300 mg capsule 600 mg PO BID Janumet 50-500 mg tablet 1 tab PO BID nitroglycerin [Nitrostat] 0.4 mg Tablet, Sublingual 0.4 mg SUBLINGUAL Q5M PRN (Reason: Chest Pain) 30 Days Qty: 30 0RF Rx Instructions: do not exceed 3 doses per episode Changed furosemide 20 mg tablet 20 mg PO QAM PRN (Reason: weight gain) Qty: 60 0RF Discharge Order = DC NOW: Discharge Order (Routine); Ordered 05/17/25 Ordered By: Fredi Jackson Referrals: Alexa Ayers APN [Primary Care Provider, Nurse Practitioner] - 05/26/25 2:40 pm Discharge Diet: Usual diet Discharge Activity: Resume usual activity Patient Instructions: Opioid Safety, Patient Portal & Santos Instructions Discharge Attestations Time Spent in Discharge Care*: greater than 30 min Specific Discharge Activities: educating patient, educating and/or supporting family/caregiver, discussing with pcp/other providers, discussing with casey saw operator/social workers/dc planners, documenting/other paperwork and evaluating patient/reviewing data Status at Discharge: Cognitive status at discharge: cognitively intact , Behavioral status at discharge: cooperative , Quality Metrics Clinical Quality Measures [ No reported AMI, CVA or VTE this stay] Coding Level of Care Code Acute Code for Chg Fwd Diagnoses Acute encephalopathy G93.40 Dehydration E86.0
--- NOTE | 2025-05-17 09:31 | PC.SOCIAL ---
IMM Update Updated pt on IMM. No questions voiced. Provided pt a copy. Initialed, dated, & timed a copy & placed in chart.
--- OUTSIDE RECORDS SUMMARY | 2025-05-17 12:29 | XMS_ITS | Patient Health Record ---
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 temporarily unavailable Hypertension, unspecified type (I10) Active confirmed Problem Information temporarily unavailable COPD exacerbation (J44.1) Active confirmed Problem Information temporarily unavailable Moderate persistent asthmatic bronchitis with acute exacerbation (J45.41) Active confirmed Problem Information temporarily unavailable Diabetes type 2, uncontrolled (E11.65) Active confirmed Problem Information temporarily unavailable Coronary artery disease involving [place] heart without angina pectoris, unspecified vessel or lesion type (I25.10) Active confirmed Problem Information temporarily unavailable Neuropathic pain (M79.2) Active confirmed Problem Information temporarily unavailable Acute right-sided low back pain with right-sided sciatica (M54.41) Active confirmed Problem Information temporarily unavailable Tobacco abuse (Z72.0) Active confirmed Problem Information temporarily unavailable Elevated brain natriuretic peptide (BNP) level (R79.89) Active confirmed Problem Information temporarily unavailable Muscle spasm (M62.838) Active confirmed Problem Information temporarily unavailable Swelling (R60.9) Active confirmed Problem Information temporarily unavailable Other depression (F32.89) Active confirmed Problem Information temporarily unavailable Cystitis (N30.90) Active confirmed Problem Information temporarily unavailable Pulmonary emphysema, unspecified emphysema type (J43.9) Active confirmed Problem Information temporarily unavailable Hammer toe of left foot (M20.42) Active confirmed Problem Information temporarily unavailable Stented coronary artery (Z95.5) Active confirmed Problem Information temporarily unavailable Thyroid disorder screen (Z13.29) Active confirmed Problem Information temporarily unavailable Encounter for tobacco use cessation counseling (Z71.6) Active confirmed Problem Information temporarily unavailable Environmental allergies (Z91.09) Active confirmed Problem Information temporarily unavailable Osteoarthritis of lumbar spine, unspecified spinal osteoarthritis complication status (M47.816 ) Active confirmed Problem Information temporarily unavailable Hallux valgus of left foot (M20.12) Active confirmed Problem Information temporarily unavailable Right buttock pain (M79.18) Active confirmed Problem Information temporarily unavailable Hammer toe of second toe of left foot (M20.42) Active confirmed Problem Information temporarily unavailable Drug withdrawal (F19.239) Active confirmed Problem Information temporarily unavailable Primary hypertension (I10) Active confirmed Problem Information temporarily unavailable Acute cough (R05.1) Active confirmed Problem Information temporarily unavailable Lumbar pain (M54.50) Active confirmed Problem Information temporarily unavailable History of HIV infection (B20) Active confirmed Problem Information temporarily unavailable Class 2 severe obesity with body mass index (BMI) of 35 to 39.9 with serious comorbidity (E66.01) Active confirmed Problem Information temporarily unavailable History of HIV infection (Z21) Active confirmed Vital Signs Heart Rate 123 /min 03/13/2025 Temperature 97.3 degrees Fahrenheit 03/13/2025 Respiratory Rate 22 /min 03/13/2025 Oximetry 93 % 03/13/2025 Blood pressure diastolic 104 mm Hg 03/13/2025 Height-cm 164.47 cm 03/13/2025 Weight-kg 88.45 kg 03/13/2025 Height 64.75 in 03/13/2025 Blood pressure systolic 142 mm Hg 03/13/2025 Weight 195 lbs 03/13/2025 BMI 32.7 kg/m2 03/13/2025 Encounters Encounter Location Date Provider Diagnosis [facility] [place] 10/06/2024 [facility] Primary hyperten jerry I10 and Chronic pain syndrome G89.4 [facility] Office [address] [place] [address] 04/13/2025 [facility] [address] [place] [address] 01/12/2025 [facility] Diabetes type 2, uncontrolled E11.65 ; Osteoarthritis of lumbar spine, unspecified spinal osteoarthritis complication status M47.816 and Back pain M54.9 [facility] [address] [place] [address] 12/12/2024 Aelxa Ayers Class 2 severe obesity with body mass index (BMI) of 35 to 39.9 with serious comorbidity E66.01 ; Mixed hyperlipidemia E78.2 ; Pulmonary emphysema, unspecified emphysema type J43.9 ; Neuropathic pain M79.2 ; 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 ; History of HIV infection B20 ; Stented coronary artery Z95.5 ; Hypertension, unspecified type I10 ; [facility] (current) use of oral hypoglycemic drugs Z79.84 ; Lumbar pain M54.50 ; Osteoarthritis of lumbar spine, unspecified spinal osteoarthritis complication status M47.816 ; Thyroid disorder screen Z13.29 ; Dependence on supplemental oxygen Z99.81 ; Myalgia, multiple sites M79.18 ; Otitis media H66.90 ; Diabetes type 2, uncontrolled E11.65 ; Chronic pain syndrome G89.4 and Other depression F32.89 [facility] [address] [address] 08/26/2024 Alexa Ayers Drug withdrawal F19.239 ; Osteoarthritis of lumbar spine, unspecified spinal osteoarthritis complication status M47.816 ; Lumbar pain M54.50 ; Nausea R11.0 and Anxiety F41.9 [facility] [address] [address] 06/17/2024 Alexa Austin Osteoarthritis of lumbar spine, unspecified spinal osteoarthritis complication status M47.816 ; Hypertension, unspecified type I10 ; History of HIV infection B20 ; Lumbar pain M54.50 ; Diabetes type 2, uncontrolled E11.65 ; Neuropathic pain M79.2 ; Nausea R11.0 ; Diarrhea R19.7 and Thyroid disorder screen Z13.29 [facility] [address] [address] 03/13/2025 Alexa Ayers Drug therapy continued Z79.899 ; Diabetes type 2, uncontrolled E11.65 ; Coronary artery disease involving [place] heart without angina pectoris, unspecified vessel or lesion type I25.10 ; History of HIV infection B20 ; Primary hypertension I10 ; Tachycardia R00.0 and Hospital discharge follow-up Z09 [facility] [address] [address] 01/16/2025 [facility] Diabetes type 2, uncontrolled E11.65 ; Thyroid disorder screen Z13.29 and Hypertension, unspecified type I10 [facility] Office [address] [facility] [address] [place] [address] 01/03/2025 [facility] History of HIV infection B20 [facility] [address] [place] [address] 07/07/2024 [facility] Hypertension, unspecified type I10 ; Mixed hyperlipidemia E78.2 and Diabetes type 2, uncontrolled E11.65 [facility] [address] [place] [address] 06/30/2024 [facility] Hypertension, unspecified type I10 [facility] [address] [place] [address] 08/19/2024 [facility] [place] 08/16/2024 [facility] [address] [place] [address] 05/17/2025 [facility]rated[facility]Facility 0 0 07/31/2024 Provider Migration [facility] 0 0 07/30/2024 Provider Migration [facility] [place] 08/16/2024 [facility] Primary hyperten jerry I10 and Diabetes type 2, uncontrolled E11.65 [facility] [address] [place] [address] 08/08/2024 [facility] [place] 08/02/2024 [facility] [place] 07/27/2024 [facility] [address] [place] [address] 07/13/2024 [facility] [place] 07/13/2024 [facility] Primary hyperten jerry I10 and GERD without esophagitis K21.9 [facility] [place] 06/08/2024 [facility] Hypertension, unspecified type I10 ; GERD without esophagitis K21.9 and Diabetes type 2, uncontrolled E11.65 [facility] [address] [place] [address] 05/23/2024 [facility] Type 2 diabetes mellitus without complications E11.9 [facility] [address] [place] [address] 04/14/2025 [facility] [place] 04/14/2025 [facility] Hypertension, unspecified type I10 and Chronic pain syndrome G89.4 [facility] [address] [place] [address] 03/29/2025 [facility] [address] [place] [address] 03/27/2025 [facility] [place] 03/16/2025 [facility] Primary hyperten jerry I10 and Other chronic pain G89.29 [facility] [place] 03/08/2025 [facility] [place] 02/06/2025 [facility] Hypertension, unspecified type I10 and Chronic pain syndrome G89.4 [facility] [place] 01/06/2025 [facility] Hypertension, unspecified type I10 and Mixed hyperlipidemia E78.2 [facility] [address] [place] [address] 12/13/2024 [facility] [address] [place] [address] 12/13/2024 [facility] History of HIV infection B20 [facility] [place] 12/09/2024 [facility] Primary hyperten jerry I10 and Chronic pain syndrome G89.4 [facility] [address] [place] [address] 11/15/2024 [facility] [place] 11/10/2024 [facility] Primary hyperten jerry I10 and Other chronic pain G89.29 [facility] [place] 11/10/2024 [facility] Primary hyperten jerry I10 and Other chronic pain G89.29 [facility] [place] 10/06/2024 [facility] Primary hyperten jerry I10 and Chronic pain syndrome G89.4 [facility] [place] 09/12/2024 [facility] Hypertension, unspecified type I10 and Chronic pain syndrome G89.4 [facility] [address] [address] 09/12/2024 Alexa Ayers Assessments Encounter Date Diagnosis (ICD Code) Assessment Notes Treatment Notes Treatment Clinical Notes Section Notes 06/17/2024 Osteoarthritis of lumbar spine, unspecified spinal osteoarthritis complication status (ICD-10 - M47.816 ) 06/17/2024 Hypertension, unspecified type (ICD-10 - I10) cbc cmp lipids 05/23/2024 Type 2 diabetes mellitus without complications (ICD-10 - E11.9) 06/08/2024 Hypertension, unspecified type (ICD-10 - I10) 06/30/2024 Hypertension, unspecified type (ICD-10 - I10) 07/07/2024 Hypertension, unspecified type (ICD-10 - I10) 07/07/2024 Mixed hyperlipidemia (ICD-10 - E78.2) 07/13/2024 Primary hypertension (ICD-10 - I10) 08/26/2024 Drug withdrawal (ICD-10 - F19.239) hydroxzyzine 08/26/2024 Osteoarthritis of lumbar spine, unspecified spinal osteoarthritis complication status (ICD-10 - M47.816 ) depomedrol/decad cedric im 12/12/2024 Class 2 severe obesity with body mass index (BMI) of 35 to 39.9 with serious comorbidity (ICD-10 - E66.01) 12/12/2024 Mixed hyperlipidemia (ICD-10 - E78.2) lipids continue meds 08/16/2024 Primary hypertension (ICD-10 - I10) 09/12/2024 Hypertension, unspecified type (ICD-10 - I10) 10/06/2024 Primary hypertension (ICD-10 - I10) 10/06/2024 Primary hypertension (ICD-10 - I10) 11/10/2024 Primary hypertension (ICD-10 - I10) 11/10/2024 Primary hypertension (ICD-10 - I10) 12/13/2024 History of HIV infection (ICD-10 - B20) 01/03/2025 History of HIV infection (ICD-10 - B20) labs for Dr Holt, orders in chart 12/09/2024 Primary hypertension (ICD-10 - I10) 01/06/2025 Hypertension, unspecified type (ICD-10 - I10) 01/12/2025 Diabetes type 2, uncontrolled (ICD-10 - E11.65) microalbumin 01/12/2025 Osteoarthritis of lumbar spine, unspecified spinal osteoarthritis complication status (ICD-10 - M47.816 ) celebrex 01/16/2025 Diabetes type 2, uncontrolled (ICD-10 - E11.65) 01/16/2025 Thyroid disorder screen (ICD-10 - Z13.29) 03/13/2025 Drug therapy continued (ICD-10 - Z79.899) cbc cmp ha1c lipids 03/13/2025 Diabetes type 2, uncontrolled (ICD-10 - E11.65) 02/06/2025 Hypertension, unspecified type (ICD-10 - I10) 03/16/2025 Primary hypertension (ICD-10 - I10) 04/14/2025 Hypertension, unspecified type (ICD-10 - I10) 04/14/2025 Chronic pain syndrome (ICD-10 - G89.4) 03/16/2025 Other chronic pain (ICD-10 - G89.29) 02/06/2025 Chronic pain syndrome (ICD-10 - G89.4) 03/13/2025 Coronary artery disease involving [place] heart without angina pectoris, unspecified vessel or lesion type (ICD-10 - I25.10) dr josie osorio meds 01/16/2025 Hypertension, unspecified type (ICD-10 - I10) 01/12/2025 Back pain (ICD-10 - M54.9) tramadol prn toradol 60 mg im 01/06/2025 Mixed hyperlipidemia (ICD-10 - E78.2) 12/09/2024 Chronic pain syndrome (ICD-10 - G89.4) Learning About Managing Chronic Pain material was printed 11/10/2024 Other chronic pain (ICD-10 - G89.29) 11/10/2024 Other chronic pain (ICD-10 - G89.29) 10/06/2024 Chronic pain syndrome (ICD-10 - G89.4) 10/06/2024 Chronic pain syndrome (ICD-10 - G89.4) 09/12/2024 Chronic pain syndrome (ICD-10 - G89.4) 08/16/2024 Diabetes type 2, uncontrolled (ICD-10 - E11.65) 12/12/2024 Pulmonary emphysema, unspecified emphysema type (ICD-10 - J43.9) conitnue meds 08/26/2024 Lumbar pain (ICD-10 - M54.50) toradol 60 mg im 07/13/2024 GERD without esophagitis (ICD-10 - K21.9) 07/07/2024 Diabetes type 2, uncontrolled (ICD-10 - E11.65) 06/08/2024 GERD without esophagitis (ICD-10 - K21.9) 06/17/2024 History of HIV infection (ICD-10 - B20) 06/17/2024 Lumbar pain (ICD-10 - M54.50) tramadol 06/08/2024 Diabetes type 2, uncontrolled (ICD-10 - E11.65) 08/26/2024 Nausea (ICD-10 - R11.0) zofran 12/12/2024 Neuropathic pain (ICD-10 - M79.2) 03/13/2025 History of HIV infection (ICD-10 - B20) continue meds 03/13/2025 Primary hypertension (ICD-10 - I10) 12/12/2024 Other retirement (current) drug therapy (ICD-10 - Z79.899) 08/26/2024 Anxiety (ICD-10 - F41.9) 06/17/2024 Diabetes type 2, uncontrolled (ICD-10 - E11.65) ha1c 06/17/2024 Neuropathic pain (ICD-10 - M79.2) 12/12/2024 History of HIV infection (ICD-10 - B20) dr laine osorio meds 03/13/2025 Tachycardia (ICD-10 - R00.0) 03/13/2025 Hospital discharge follow-up (ICD-10 - Z09) 12/12/2024 Stented coronary artery (ICD-10 - Z95.5) continue meds dr galindo 06/17/2024 Nausea (ICD-10 - R11.0) zofran 06/17/2024 Diarrhea (ICD-10 - R19.7) 12/12/2024 Hypertension, unspecified type (ICD-10 - I10) conitnue meds labs 12/12/2024 [facility] (current) use of oral hypoglycemic drugs (ICD-10 - Z79.84) 06/17/2024 Thyroid disorder screen (ICD-10 - Z13.29) tsh 12/12/2024 Lumbar pain (ICD-10 - M54.50) 12/12/2024 Osteoarthritis of lumbar spine, unspecified spinal osteoarthritis complication status (ICD-10 - M47.816 ) celebrex 12/12/2024 Thyroid disorder screen (ICD-10 - Z13.29) tsh 12/12/2024 Dependence on supplemental oxygen (ICD-10 - Z99.81) continue 02 12/12/2024 Myalgia, multiple sites (ICD-10 - M79.18) continue meds 12/12/2024 Otitis media (ICD-10 - H66.90) amoxicillin called in 12/12/2024 Diabetes type 2, uncontrolled (ICD-10 - E11.65) ha1c; microalbumin 12/12/2024 Chronic pain syndrome (ICD-10 - G89.4) tramadol 12/12/2024 Other depression (ICD-10 - F32.89) continue meds 06/17/2024 Other Questions asked and answered; discharged to home. 06/30/2024 Other Gave patient ou t patient lab orders for hospital Venipuncture: Performed by:Miguel RUSS Attempts:x2 Location:RAC and right hand. No blood odtained. Needle gauge: 21g Patient tolerated well. 07/07/2024 Other Labs drawn: CBC , CMP, HA1C, Lipids, TSH Venipuncture: Performed by: Miguel RUSS Attempts: x3 Location: Left hand, right hand, right forearm blood obtained. Needle gauge: 23g Patient tolerated well. 08/26/2024 Other Questions asked and answered; discharged to home. 12/12/2024 Other Questions asked and answered; discharged to home. 01/03/2025 Other Venipuncture performed. Right hand. One attempt. Pt tolerated well, bleeding controlled with light dressing.Melissa Nicolas LPN labs for Dr Holt, orders in chart 01/12/2025 Other Questions asked and answered; discharged to home. 01/16/2025 Other Venipuncture performed. Right hand. One attempt. Pt tolerated well, bleeding controlled with light dressing.Melissa Nicolas LPN 03/13/2025 Other Questions asked and answered; discharged to home. 08/16/2024 Other Learning About Benefits of Quitting Smoking material was printed Plan Of Treatment Pending Test Test Name Order Date CBC w\ Auto Diff 16341 01/04/2025 CBC w\ Auto Diff 30817 08/11/2023 Comprehensive Metabolic Panel (CMP) 8005 3 01/04/2025 Comprehensive Metabolic Panel (CMP) 8005 3 08/11/2023 Lymphocyte Subset CD4 13847 01/04/2025 Lymphocyte Subset CD4 80052 08/11/2023 CRP 23686 08/11/2023 CRP 58617 01/04/2025 CT Abdomen w/ + w/o Contrast-68900 06/19 HIV-1 Quantitative NAAT--57969 HIV-1 Quantitative NAAT--57274 Future Test Test Name Order Date CBC w\ Auto Diff 40778 02/09/2024 Comprehensive Metabolic Panel (CMP) 8005 3 02/09/2024 Lymphocyte Subset CD4 33882 02/09/2024 CRP 52707 02/09/2024 HIV-1 Quantitative NAAT--02340 4 CBC w\ Auto Diff 97744 12/15/2024 Comprehensive Metabolic Panel (CMP) 8005 3 12/15/2024 Hemoglobin A1c 79244 12/15/2024 Lipid Panel Reflex DLDL 51612, 78537 Thyroid Stimulating Hormone (TSH) 74069 12/15/2024 CBC w\ Auto Diff 90486 03/13/2025 Comprehensive Metabolic Panel (CMP) 8005 3 03/13/2025 Hemoglobin A1c 33698 03/13/2025 Lipid Panel Reflex DLDL 15380, 78189 06/2025 Next Appt Details Provider Name:Alexa Kylah Ayers, 05/26/2025 02:40:00 PM, [address] [facility], [place], [address], Insurance Providers Payer Name Payer Address Payer Phone Subscriber Number Group Number Insured Name Patient Relationship to Insured Coverage Start Date Coverage End Date [facility] Dual Complete [address] [place] [address] [phone] [id number] JONO WILKS Self - patient is the insured [facility] Medicare Advantage PPO [address] [address] [place] [address] [id number] VISHNUANABEL RICKETTSJONO Self - patient is the insured Medications Administered Medication Instructions Date of Administration Dosage Notes DEPO-Medrol 07/15/2022 40 mg NDC: [address]-57 Patient tolerated well, advised to wait 20 min at clinic DEPO-Medrol 08/26/2024 40 mg ndc 98915-613 3-01 pt tolerated well/instructed to wait 20 min dexAMETHasone 07/01/2022 4 mg ndc 30918-3 39-30 pt tolerated well/instructed to wait 20 min Ketorolac Tromethamine 01/12/2025 [place] [address]-50 pt tolerated well/instructed to wait 20 min Rocephin 09/19/2022 1 g ndc 4431-3736- 11 pt tolerated well/instructed to wait 20 min DEPO-Medrol 07/01/2022 40 mg ndc 96081-611 2-1 pt tolerated well/instructed pt to wait 20 min DEPO-Medrol 06/10/2022 40 mg NDC: [address]-32 Patient tolerated well, advised to wait 20 min at clinic DEPO-Medrol 05/23/2022 40 mg ndc 75268-304 3-1 pt tolerated well/instructed to wait 20 min DEPO-Medrol 05/09/2022 40 mg ndc 14003-263 3-1 pt tolerated well/instructed to wait 20 min DEPO-Medrol 12/12/2022 40 mg NDC: [address]-51 Patient tolerated well, advised to wait 20 min at clinic DEPO-Medrol 10/03/2022 40 mg ndc 46774-849 3-01 pt tolerated well/instructed to wait 20 min DEPO-Medrol 09/19/2022 40 mg ndc 4937-7175 - pt tolerated well/instructed to wait 20 min DEPO-Medrol 08/22/2022 40 mg NDC: 4151-5863-90 Patient tolerated well, advised to wait 20 min at clinic DEPO-Medrol 07/24/2022 40 mg ndc 13705-610 2-1 pt tolerated well/instructed to wait 20 min. dexAMETHasone 08/26/2024 4 mg [facility] 81181-4 423-00 pt tolerated well/instructed to wait 20 min dexAMETHasone 06/10/2022 4 mg NDC: 04799-477-90 Patient tolerated well, advised to wait 20 min at clinic dexAMETHasone 05/23/2022 4 mg ndc 49792-6 39-30 pt tolerated well/instructed to wait 20 min dexAMETHasone 05/09/2022 4 mg ndc 74124-7 39-30 pt tolerated well/instructed to wait 20 min dexAMETHasone 12/12/2022 4 mg ND: [address]-19 Patient tolerated well, advised to wait 20 min at clinic dexAMETHasone 10/03/2022 [place] [address]-2 239-30 pt tolerated well/instructed to wait 20 min dexAMETHasone 09/19/2022 [place] [address]-8 39-30 pt tolerated well/instructed to wait 20 min dexAMETHasone 08/22/2022 4 mg NDC: 00880-401-09 Patient tolerated well, advised to wait 20 min at clinic dexAMETHasone 07/24/20[place] [address]-9 39-30 pt tolerated well/instructed to wait 20 min dexAMETHasone 07/15/2022 4 mg NDC: 76218-260-18 Patient tolerated well, advised to wait 20 min at clinic Ketorolac Tromethamine 08/26/2024 [place] [address]-16 pt tolerated well/instructed to wait 20 min Ketorolac Tromethamine 05/23/2022 [place] [address]-593-43 pt tolerated well/instructed to wait 20 min Ketorolac Tromethamine 04/30/2022 60 mg nd [id number] Ketorolac Tromethamine 03/12/2022 60 mg Ketorolac Tromethamine 08/12/2022 [place] [address]-430-89 pt tolerated well/instructed to wait 20 min Ketorolac Tromethamine 07/31/2022 60 mg NDC: 70291-927-10 Patient tolerated well, advised to wait 20 min at clinic Ketorolac Tromethamine 07/24/2022 [place] [address]-754-47 pt tolerated well/instructed to wait 20 min Ketorolac Tromethamine 07/15/2022 60 mg NDC: 87348-375-73 Patient tolerated well, advised to wait 20 min at clinic Ketorolac Tromethamine 07/01/2022 [place] [address]-604-83 pt tolerated well/instructed to wait 20 min Ketorolac Tromethamine 06/10/2022 60 mg NDC: 59123-203-92 Patient tolerated well, advised to wait 20 min at clinic Ketorolac Tromethamine 06/03/2022 60 mg nd [id number] Ketorolac Tromethamine 06/17/2024 [place] [address]-01 pt tolerated well/instructed to wait 20 min Ketorolac Tromethamine 03/10/2024 [place] [address]-80 pt tolerated well/instructed to wait 20 min Ketorolac Tromethamine 02/18/2024 [place] [address]-89 pt tolerated well/instructed to wait 20 min Ketorolac Tromethamine 11/30/2023 [place] [address]-14 pt tolerated well/instructed to wait 20 min Ketorolac Tromethamine 10/29/2023 [place] [address]-04 pt tolerated well/instructed to wait 20 min Ketorolac Tromethamine 10/08/2023 [place] [address]-92 pt tolerated well/instructed to wait 20 min Ketorolac Tromethamine 09/15/2023 [place] [address]-77 pt tolerated well/instructed to wait 20 min Ketorolac Tromethamine 06/19/2023 [place] [address]-17 pt tolerated well/instructed to wait 20 min Ketorolac Tromethamine 01/19/2023 [place] [address]-33 pt tolerated well/instructed to wait 20 min Ketorolac Tromethamine 12/12/2022 60 mg NDC: [address]-53 Patient tolerated well, advised to wait 20 min at clinic Ketorolac Tromethamine 11/21/2022 [place] [address]-07 pt tolerated well/instructed to wait 20 min Ketorolac Tromethamine 10/27/2022 [place] [address]-73 pt tolerated well/instructed to wait 20 min Ketorolac Tromethamine 10/08/2022 30 mg Ketorolac Tromethamine 10/03/2022 [place] [address]-78 pt tolerated well/instructed to wait 20 min Ketorolac Tromethamine 09/19/2022 [place] [address]-460-86 pt tolerated well/instructed to wait 20 min Ketorolac Tromethamine 09/11/2022 60 mg NDC: 10635-951-85 Patient tolerated well, advised to wait 20 min at clinic Ketorolac Tromethamine 08/22/2022 60 mg NDC: 82026-399-48 Patient tolerated well, advised to wait 20 min at clinic Rocephin 05/09/2022 1 g ndc 88416-386- 25 pt tolerated well/instructed to wait 20 min Medical (General) History Medical History History ICD Code hypertension myocardial infarction hyperlipidemia edema chronic pain HIV schizophrenia Pneumonia Heart Disease Arthritis anemia migraine headaches Back Trouble High Blood Pressure AIDS/HIV cancer Surgical History Surgery Date(Month/Year) stent placement section lymph node biopsy Hospitalization History Reason Date(Month/Year) chest pain 10/24/2022 Chest pain 07/13/2022 EKG 03/2022 see surgical hx
== END 2025-05-17 11:54 | disposition home or self-care (01) | DRG 91 ==
LOC: ER 23:37 → CSU 23:55
PROVIDERS: Admitting Provider Internal Medicine; Emergency Provider Emergency Medicine; PCP Nurse Practitioner Family; Visit Provider Internal Medicine
DX: G92.8 Other toxic encephalopathy (principal); J96.22 Acute and chronic respiratory failure with hypercapnia; N17.9 Acute kidney failure, unspecified; I13.0 Hypertensive heart and chronic kidney disease with heart failure and stage 1 through stage 4 chronic kidney disease, or unspecified chronic kidney disease; I50.30 Unspecified diastolic (congestive) heart failure; T40.715A Adverse effect of cannabis, initial encounter; E86.0 Dehydration; J44.9 Chronic obstructive pulmonary disease, unspecified; E11.22 Type 2 diabetes mellitus with diabetic chronic kidney disease; N18.32 Chronic kidney disease, stage 3b; Z79.84 Long term (current) use of oral hypoglycemic drugs; Z21 Asymptomatic human immunodeficiency virus [HIV] infection status; Z79.899 Other long term (current) drug therapy; I48.91 Unspecified atrial fibrillation; G47.33 Obstructive sleep apnea (adult) (pediatric); F17.210 Nicotine dependence, cigarettes, uncomplicated; I25.10 Atherosclerotic heart disease of native coronary artery without angina pectoris; E78.5 Hyperlipidemia, unspecified; I10 Essential (primary) hypertension; F32.A Depression, unspecified; I25.2 Old myocardial infarction; Z79.01 Long term (current) use of anticoagulants; Z79.82 Long term (current) use of aspirin
CPT/HCPCS: 36415; 36416; 36600; 70450; 74176; 80048; 80051; 80053; 80306; 80307; 81001; 81025; 82330; 82805; 82962; 84443; 84484; 85025; 93005; 94640; 94660; 96360; 96361; 96372; 99285; J1815; J7030; J7120; J7626; J7799; J9999

== ENCOUNTER 2025-08-30 11:33 | Inpatient (IN) | payer MEDICARE, SELFPAY ==
[2025-08-30] VITALS (32 sets, daily range): BP systolic 91–152; BP diastolic 38–75; PULSE 35–67; RESP 15–25; TEMP 36.6–36.8; O2SAT 90–100; BMI 33.3
--- NOTE | 2025-08-30 11:39 | XRR_ITS ---
PROCEDURE INFORMATION: Exam: XR Right Elbow Exam date and time: 08/30/2025 12:13 PM Age: 69 years old Clinical indication: Injury or trauma; Fall; Blunt trauma (contusions or hematomas); Elbow; Right TECHNIQUE: Imaging protocol: Radiologic exam of the right elbow. Views: 3 or more views. COMPARISON: No relevant prior studies available. FINDINGS: Tubes, catheters and devices: Superimposed artifact from buttons and IV tubing. Bones/joints: Bone mineralization appears normal. Mild hypertrophic change ulnar aspect of the right elbow. Mild hypertrophic change of the coronoid process and olecranon process of proximal ulna. Mild narrowing ulnar aspect of right elbow joint. No moderate or severe joint space narrowing. No erosion. No joint effusion noted. Soft tissues: Unremarkable appearance. XR/XR elbow RT min 3V* [id number] IMPRESSION: 1. No acute fracture, dislocation or destructive bony process demonstrated of the right elbow. 2. Mild osteoarthrosis of right elbow.
--- NOTE | 2025-08-30 11:39 | XRR_ITS ---
PROCEDURE INFORMATION: Exam: XR Chest Exam date and time: 08/30/2025 12:12 PM Age: 69 years old Clinical indication: Shortness of breath; Additional info: SOB TECHNIQUE: Imaging protocol: Radiologic exam of the chest. Views: 1 view. COMPARISON: 1. CR XR chest 1V portable [id number] 04/18/2025 11:45 AM 2. CR XR chest 1V portable [id number] 03/23/2025 10:[address] chest wo con [id number] 03/03/2025 7:54 AM 4. CR XR chest 1V portable [id number] 02/27/2025 4:47 PM 5. CR (CHEST, ) 07/05/2023 11:36 AM FINDINGS: Lungs: Mild prominence interstitial markings. No lobar pneumonia. Pleural spaces: No pleural effusion. No pneumothorax. Heart/Mediastinum: Borderline cardiomegaly. Vasculature: Atherosclerotic calcification of the aortic arch with mild tortuosity. Vascular pedicle upper normal in size. Bones/joints: Bones appear unremarkable. Soft tissues: Chest leads superimposed over the patient. XR/XR chest 1V portable [id number] IMPRESSION: 1. Borderline cardiomegaly. Mild degree central pulmonary venous congestion may be present. No overt failure pattern demonstrated. 2. No pleural effusion. 3. No lobar pneumonia.
--- NOTE | 2025-08-30 11:39 | CTR_ITS ---
PROCEDURE INFORMATION: Exam: CT Head Without Contrast Exam date and time: 08/30/2025 12:36 PM Age: 69 years old Clinical indication: Injury or trauma; Additional info: Fall TECHNIQUE: Imaging protocol: Computed tomography of the head without contrast. Radiation optimization: All CT scans at this facility use at least one of these dose optimization techniques: automated exposure control; mA and/or kV adjustment per patient size (includes targeted exams where dose is matched to clinical indication); or iterative reconstruction. COMPARISON: 1. CT head wo con* [id number] 05/15/2025 8:[address] head wo con* [id number] 03/20/2025 5:[address] head wo con* [id number] 08/12/2024 4:24 PM RADIATION DOSE METRICS: Total DLP (mGy-cm): 1114.39 FINDINGS: Brain: No acute intracranial hemorrhage. Cisterns and sulci mildly enlarged with stable appearance compared to previous. No abnormal extra-axial fluid collection or midline shift. Some chronic small-vessel ischemic change of periventricular white matter and subcortical white matter again noted. No acute ischemic changes noted. Cerebral ventricles: Mild prominence 3rd ventricle compatible with central atrophy with stable appearance to previous exams. No significant ventricular enlargement. Pituitary gland and sella: Empty sella again noted. Paranasal sinuses: Visualized paranasal sinuses appear unremarkable. Mastoid air cells: Visualized mastoid air cells and middle ear cavities appear unremarkable. Orbital cavities: Globes appear intact. Some proptosis with similar appearance to previous exam. Bones: Bone mineralization appears unremarkable. No acute skull fracture. Soft tissues: No scalp hematoma. Vasculature: Atherosclerotic calcification anterior circulation. CT/CT head wo con* [id number] IMPRESSION: 1. No acute intracranial process demonstrated. 2. No acute skull fracture. 3. Some chronic small-vessel ischemic change again noted.
--- NOTE | 2025-08-30 11:39 | CTR_ITS ---
PROCEDURE INFORMATION: Exam: CT Cervical Spine Without Contrast Exam date and time: 08/30/2025 12:36 PM Age: 69 years old Clinical indication: Injury or trauma; Additional info: Fall TECHNIQUE: Imaging protocol: Computed tomography of the cervical spine without contrast. Radiation optimization: All CT scans at this facility use at least one of these dose optimization techniques: automated exposure control; mA and/or kV adjustment per patient size (includes targeted exams where dose is matched to clinical indication); or iterative reconstruction. COMPARISON: 1. CT cervical spin wo con* [id number] 03/20/2025 5:[address] head wo con* [id number] 05/15/2025 8:41 PM RADIATION DOSE METRICS: Total DLP (mGy-cm): 259.9 FINDINGS: Bones: Mild reversal cervical lordosis again noted. Mild osteopenia. Diffuse cervical spondylosis with some narrowing of cervical 3-6 disc spaces again noted. Some uncovertebral and facet hypertrophy throughout the cervical spine again noted. Mild narrowing of left cervical 5-6 bony neural foramen. No severe bony neural foraminal stenosis noted. Mild narrowing bony central canal inferior C5 level with AP diameter 9.4 mm. No severe bony central canal stenosis noted of the cervical spine. Paranasal sinuses: Visualized paranasal sinuses appear grossly unremarkable. Mastoid air cells: Visualized mastoid air cells and middle ear cavities appear grossly unremarkable. Pharynx: Parapharyngeal spaces appear grossly unremarkable. Salivary glands: Salivary glands appear grossly unremarkable. Lungs: Lung apices appear grossly unremarkable. Thyroid: Thyroid gland appears grossly unremarkable. Lymph nodes: No obvious adenopathy noted. Vasculature: Atherosclerotic calcification bilateral carotid artery bifurcations. Soft tissues: No thickening noted of prevertebral soft tissues. CT/CT cervical spin wo con* [id number] IMPRESSION: 1. No acute fracture, dislocation or gross destructive bony process demonstrated cervical spine. 2. Cervical spondylosis with similar findings on previous exam. 3. Stable appearance of cervical spine compared to previous exam. 4. Bilateral carotid artery calcification.
--- NOTE | 2025-08-30 11:40 | ECG_ITS ---
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 Measurements Intervals Alice Rate: 34 P: 0 CT: 0 QRS: -75 QRSD: 127 T: 78 QT: 543 QTc: 412 Interpretive Statements Junctional escape rhythm LEFT AXIS DEVIATION [QRS AXIS < -30] CRITICAL TEST RESULT Compared to ECG 05/16/2025 01:00:37 Sinus rhythm no longer present Electronically Signed On 08-31-2025 17:39:16 INNER [employer]BE [employer] by Caroline Marin M.D. [email or web address] [id number]
--- NOTE | 2025-08-30 11:47 | CTR_ITS ---
PROCEDURE INFORMATION: Exam: CT Thoracic Spine Without Contrast Exam date and time: 08/30/2025 12:41 PM Age: 69 years old Clinical indication: Injury or trauma; Fall TECHNIQUE: Imaging protocol: Computed tomography of the thoracic spine without contrast. Radiation optimization: All CT scans at this facility use at least one of these dose optimization techniques: automated exposure control; mA and/or kV adjustment per patient size (includes targeted exams where dose is matched to clinical indication); or iterative reconstruction. COMPARISON: CT cervical spin wo con* [id number] 08/30/2025 12:36 PM RADIATION DOSE METRICS: Total DLP (mGy-cm): 727 FINDINGS: Bones/joints: No acute fracture. Multifocal disc space narrowing and spurring at all levels. No fracture, lytic, or sclerotic bone lesion. Normal alignment. No significant disc bulge or herniation. No severe spinal canal stenosis. No significant neural foraminal narrowing. Soft tissues: Unremarkable. Coronary arteries: Coronary artery calcifications. CT/CT thoracic spin wo con* [id number] IMPRESSION: No acute thoracic spine fracture.
--- NOTE | 2025-08-30 11:47 | XRR_ITS ---
PROCEDURE INFORMATION: Exam: XR Pelvis Exam date and time: 08/30/2025 12:15 PM Age: 69 years old Clinical indication: Injury or trauma; Fall; Blunt trauma (contusions or hematomas); Bilateral; Pelvic region TECHNIQUE: Imaging protocol: Radiologic exam of the pelvis. Views: 1 or 2 view. COMPARISON: CT kidney stone [id number] 05/15/2025 8:45 PM FINDINGS: Bones/joints: Bone mineralization appears normal. Facet hypertrophy of the lower lumbar spine. Some degenerative disc changes suggested in the lower lumbar spine corresponding with previous CT exam. Some mild osteoarthrosis of the hips. No large osteophyte or severe joint space narrowing demonstrated of the hips. Sacroiliac joints appear intact. Mild hypertrophic changes of the sacroiliac joints. Soft tissues: Unremarkable. Gastrointestinal tract: Bowel gas pattern appears unremarkable. Vasculature: Small amount of atherosclerotic calcification femoral arteries bilaterally. Probable 4 mm and smaller phleboliths right hemipelvis. XR/XR pelvis 1-2V* [id number] IMPRESSION: 1. No acute fracture, dislocation or destructive bony process demonstrated on frontal radiograph of the pelvis. 2. Some degenerative changes of the lower lumbar spine.
--- NOTE | 2025-08-30 11:47 | CTR_ITS ---
PROCEDURE INFORMATION: Exam: CT Lumbar Spine Without Contrast Exam date and time: 08/30/2025 12:41 PM Age: 69 years old Clinical indication: Injury or trauma; Additional info: Fall TECHNIQUE: Imaging protocol: Computed tomography of the lumbar spine without contrast. Radiation optimization: All CT scans at this facility use at least one of these dose optimization techniques: automated exposure control; mA and/or kV adjustment per patient size (includes targeted exams where dose is matched to clinical indication); or iterative reconstruction. COMPARISON: CT lumbar spine wo con* [id number] 07/29/2022 9:39 AM RADIATION DOSE METRICS: Total DLP (mGy-cm): 975 FINDINGS: Bones/joints: No acute fracture. Disc space narrowing and spurring with vacuum disc L3 through S1. No fracture. No lytic or sclerotic bone lesion. Normal alignment. No significant disc bulge or herniation. No severe spinal canal stenosis. No significant neural foraminal narrowing. Soft tissues: Unremarkable. CT/CT lumbar spine wo con* [id number] IMPRESSION: No acute lumbar spine fracture.
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
[2025-08-30 12:01] LABS: ABG PCO2 44.5 mmHg (35-45); ABG PH Result 7.37 (7.35-7.45); Alveolar-Arterial Oxygen Gradi 3.8 mmHg (5-10); Arterial Blood Gas Hematocrit 39.9 % (37-47); Blood Gas Allen Test Pos; Blood Gas LPM 3.0 %; Blood Gas Operator Identificat WALCI; Blood Gas Sample Site Brachial, left; Blood Gas Sample Type Arterial; Carboxyhemoglobin 2.5 %THgb (0.4-20.1); Glucose Level-ABG 136.0 mg/dL (70-115); HCO3 ABG 25.7 mmol/L (22-26); Ionized Calcium Level - ABG 1.2 mmol/L (1.1-1.4); Methemoglobin 1.1 % (0.4-1.5); Oxygen Saturation ABG 93.4; PO2 ABG 66.8 mmHg (80.0-100.0); Potassium Level - ABG 8.3 mmol/L (3.5-5.0); Sodium Level - ABG 139.0 mmol/L (131-143)
[2025-08-30 12:17] LABS: Hematocrit 37.8 % (36-47); Hemoglobin 11.80 g/dL (11.27-16.99); Mean Corpuscular HGB Conc 31.2 g/dL (30-55); Mean Corpuscular Hemoglobin 30.4 pg (27-33); Mean Corpuscular Volume 97.4 fl (85-98); Nucleated Red Blood Cells % 0 %; Platelet Count 275 10^3/cmm (157-399); Red Blood Count 3.88 10^6/uL (3.85-5.65); White Blood Count 13.73 10^3/uL (3.29-11.43)
[2025-08-30] MEDS: calcium gluconate 0.1 gm/mL 10% SDV 10mL 1 GM IVP ×2 (12:20→13:34)
[2025-08-30] MEDS: insulin regular-human 100 units/1 mL 10 UNIT IVP (12:33)
[2025-08-30 12:47] LABS: Troponin(5th) Baseline < 6 ng/L (0-10)
[2025-08-30 12:59] LABS: INR 1.36 (0.8-1.2); Prothrombin Time 17.60 SECONDS (12.1-14.9)
[2025-08-30 13:19] LABS: Alanine Aminotransferase 14 U/L (0-33); Albumin Level 4.2 g/dL (3.5-5.2); Alkaline Phosphatase 94 U/L (35-105); Aspartate Amino Transferase 21 U/L (0-32); Blood Urea Nitrogen 29 mg/dL (8-23); Calcium 9.0 mg/dL (8.5-10.5); Carbon Dioxide 22 mmol/L (22-29); Chloride 105 mmol/L (98-107); Globulin 2.7 g/dL (1.3-4.6); Glucose 124 mg/dL (65-115); Lipase 73 U/L (13-60); Osmolality Calculated 297 mOsm/kg (285-295); Sodium 140 mmol/L (136-145); Thyroid Stimulating Hormone 0.02 uIU/mL (0.27-4.20); Total Protein 6.9 g/dL (6.6-8.7)
[2025-08-30 13:21] LABS: Anion Gap 20.9 (5-19)
[2025-08-30 13:29] LABS: Potassium 7.9 mmol/L (3.5-5.1)
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
--- NOTE | 2025-08-30 14:15 | ECG_ITS ---
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 Measurements Intervals [place] Rate: 38 P: 0 NM: 0 QRS: -51 QRSD: 108 T: 63 QT: 551 QTc: 443 Interpretive Statements SINUS BRADYCARDIA LEFT AXIS DEVIATION [QRS AXIS < -30] SEPTAL MYOCARDIAL INFARCTION , PROBABLY OLD [ PROLONGED QT INTERVAL Compared to ECG 08/30/2025 11:42:19 Prolonged QT interval now present Myocardial infarct finding still present Electronically Signed On 08-31-2025 18:01:31 RESTAURANT HOSPITALITY MANAGER by Caroline Marin M.D. [email or web address] [id number]
[2025-08-30 14:38] LABS: Troponin 5 2HR < 6.0 ng/L (0-10); Troponin 5 2HR Delta 0 ABS# (0-10)
--- NOTE | 2025-08-30 15:15 | USCV_ITS ---
Katie Andrews Age: 69 Gender: F : 1955 Exam Date: 08/30/2025 23:21 Ordering Phys: Patrick Mcelroy MD Technologist: JOHN [place] [facility] [place]ication: Syncope History of CAD, prior UT, Afib, CKD, LUPE, COPD BP: 115 / 51 HR: 58 Rhythm: Sinus Technical Quality: Adequate MEASUREMENTS (Male / Female) Normal Values 2D ECHO LV Diastolic Diameter PLAX 4.8 cm 4.2 - 5.9 / 3.9 - 5.3 cm IVS Diastolic Thickness 1.5 cm 0.6 - 1.0 / 0.6 - 0.9 cm IVS Systolic Thickness 2.0 cm LVPW Diastolic Thickness 1.5 cm 0.6 - 1.0 / 0.6 - 0.9 cm LVPW Systolic Thickness 2.0 cm LVOT Diameter 1.9 cm LV Ejection Fraction 2D Teich 73.7 % LV Ejection Fraction MOD 4C 68.7 % LV Ejection Fraction MOD 2C 68.0 % LV Ejection Fraction 2C AL 68.0 % LA Diameter 4.0 cm Aorta at Sinotubular Diameter 2.9 cm IVC Diameter 1.3 cm M-MODE LA Ao Ratio MM 1.5 AV Cusp Separation MM 1.7 cm DOPPLER AV Peak Velocity 219.0 cm/s LVOT Peak Velocity 117.0 cm/s AV Area Cont Eq vti 1.6 cm squared AV Area Cont Eq pk 1.5 cm squared MV Peak Velocity 158.0 cm/s MV Area PHT 2.6 cm squared Mitral E to A Ratio 1.5 TV Peak Velocity 257.7 cm/s TR Peak Velocity 315.0 cm/s TR Peak Gradient 39.7 mmHg TV Peak E Velocity 62.0 cm/s PV Peak Velocity 155.0 cm/s FINDINGS Left Ventricle Mild concentric LVH. Normal left ventricular systolic function, with no regional wall motion abnormalities. Left ventricular ejection fraction is estimated at 65%. Right Ventricle Normal right ventricular size and systolic function. Right Atrium Normal right atrial size. Left Atrium Mildly dilated left atrium. IA Septum Normal interatrial septum. Mitral Valve Thickened mitral valve. Moderate mitral annular calcification. No significant stenosis. Trace mitral regurgitation. Aortic Valve Thickened aortic valve. No aortic valve stenosis. Tricuspid Valve Structurally normal tricuspid valve. Mild tricuspid valve regurgitation. TV PG estimated = 38 mmHg. Moderately elevated right heart and pulmonary pressures = 45 mmHg. Pulmonic Valve Pulmonic valve not well visualized. Trace pulmonary valve regurgitation. Pericardium No pericardial effusion. Aorta Normal size aortic root and proximal ascending aorta. IVC Normal inferior vena cava. CONCLUSIONS Mild concentric LVH. Normal left ventricle systolic function, estimated LVEF normal 65%. Normal right ventricle size and systolic function. Thickened calcified mitral valve but no significant stenosis. Mild mitral regurgitation. Moderately elevated right heart and pulmonary pressures = 45 mmHg. Caroline Marin MD (Electronically Signed) Final Date: 31 August 2025 12:54 S
[2025-08-30 15:32] LABS: Free T4 Free Thyroxine 2.33 ng/dL (0.82-1.77)
[2025-08-30] MEDS: pantoprazole 40 mg SDV IVP (16:15)
--- NOTE | 2025-08-30 17:59 | ECG_ITS ---
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 Measurements Intervals [place] Rate: 36 P: 14 MT: 203 QRS: -47 QRSD: 100 T: 73 QT: 557 QTc: 436 Interpretive Statements SINUS BRADYCARDIA LEFT AXIS DEVIATION [QRS AXIS < -30] ANTEROSEPTAL MYOCARDIAL INFARCTION , OF INDETERMINATE AGE [40+ ms Q WAVE IN V1-V4] PROLONGED QT INTERVAL Compared to ECG 08/30/2025 14:15:34 No significant changes Electronically Signed On 08-31-2025 17:58:30 RADIOACTIVITY TECHNICIAN by Caroline Marin M.D. [id number] [id number]
[2025-08-30 18:33] LABS: Troponin 5 6HR < 6.0 ng/L (0-10); Troponin 5 6HR Delta 0 ng/L (0-12)
--- NOTE | 2025-08-30 19:13 | PC.NURSE ---
Patient remain in sinus bradycardia/junctional rhythm with rates 35-44 this shift. Vitals - bp remains stable, o2 saturation wnl on 3l nc. Patient out of bed despite being requested to stay in bed due to low heart rate. Diarrhea with urine mix x 2. Patient responded yes to wishes she was , but has no plans of self harm at this time, and no reported history of SI. Patient states she has mental health problems but doesn't have [facility] health doctor. Dr. Mcelroy made aware of above. Consult for psych ordered and patient placed 1 to 1 with si precautions. Also to repeat cmp as last K+ level was 7.9. clinician oncology made aware of need to call chemistries to night hospitalist.
[2025-08-30 19:22] LABS: Coronavirus 229E,HKU1,NL63,OC4 Not Detected (NOT DETECT); Parainfluenza Virus Type 1 Not Detected (NOT DETECT); Parainfluenza Virus Type 2 Not Detected (NOT DETECT); Parainfluenza Virus Type 3 Not Detected (NOT DETECT); Parainfluenza Virus Type 4 Not Detected (NOT DETECT); SARS-COV-2 Not Detected (NOT DETECT)
[2025-08-30 19:48] LABS: Alanine Aminotransferase 13 U/L (0-33); Albumin Level 4.1 g/dL (3.5-5.2); Alkaline Phosphatase 88 U/L (35-105); Anion Gap 20.7 (5-19); Aspartate Amino Transferase 17 U/L (0-32); Blood Urea Nitrogen 35 mg/dL (8-23); Calcium 9.5 mg/dL (8.5-10.5); Carbon Dioxide 21 mmol/L (22-29); Chloride 106 mmol/L (98-107); Globulin 2.9 g/dL (1.3-4.6); Glucose 68 mg/dL (65-115); Osmolality Calculated 298 mOsm/kg (285-295); Sodium 141 mmol/L (136-145); Total Protein 7.0 g/dL (6.6-8.7)
[2025-08-30 19:50] LABS: Potassium 6.7 mmol/L (3.5-5.1)
[2025-08-30] MEDS: calcium gluconate 0.9% NaCL 1 GM/50 ML PREMIX IV (21:41)
[2025-08-31] VITALS (43 sets, daily range): BP systolic 102–161; BP diastolic 52–84; PULSE 58–90; RESP 13–25; TEMP 36.7–37; O2SAT 91–98
[2025-08-31 00:52] LABS: Glucose Urine UA 1+ (Normal); Nitrate Urine Negative (Negative); Specific Gravity, Urine 1.020 (1.005-1.030)
[2025-08-31 00:57] LABS: Add Urine Microscopic? YES
[2025-08-31 03:31] LABS: Hematocrit 37.6 % (36-47); Hemoglobin 11.70 g/dL (11.27-16.99); Mean Corpuscular HGB Conc 31.1 g/dL (30-55); Mean Corpuscular Hemoglobin 30.4 pg (27-33); Mean Corpuscular Volume 97.7 fl (85-98); Nucleated Red Blood Cells % 0 %; Platelet Count 189 10^3/cmm (157-399); Red Blood Count 3.85 10^6/uL (3.85-5.65); White Blood Count 7.93 10^3/uL (3.29-11.43)
[2025-08-31 03:48] LABS: Alanine Aminotransferase 12 U/L (0-33); Albumin Level 4.0 g/dL (3.5-5.2); Alkaline Phosphatase 91 U/L (35-105); Anion Gap 12.3 (5-19); Aspartate Amino Transferase 16 U/L (0-32); Blood Urea Nitrogen 28 mg/dL (8-23); Calcium 9.2 mg/dL (8.5-10.5); Carbon Dioxide 28 mmol/L (22-29); Chloride 107 mmol/L (98-107); Globulin 2.5 g/dL (1.3-4.6); Glucose 60 mg/dL (65-115); Magnesium 3.0 mg/dL (1.7-2.3); Osmolality Calculated 299 mOsm/kg (285-295); Potassium 4.3 mmol/L (3.5-5.1); Sodium 143 mmol/L (136-145); Total Protein 6.5 g/dL (6.6-8.7)
[2025-08-31] MEDS: pantoprazole 40 mg SDV IVP (04:30)
[2025-08-31] MEDS: dilTIAZem ER (24HR) 300 mg Capsule PO (04:30)
[2025-08-31 04:47] LABS: Lactate (Lactic Acid level) 1.0 mmol/L (0.5-2.2)
--- NOTE | 2025-08-31 05:30 | PC.NURSE ---
Has been confused most of the shift, not able to stay awake. Checked blood sugar and received a blood sugar of 67. D10 given per hypoglycemic protocl and physician made aware. Patient not altered at this time but very tired. Blood sugar rechecked and had dropped to 56 despite the bolus. Another bolus given. Physician notified with orders to start a continuous drip of d5 at 30. Patients blood sugar then continued to drop, fluids increased to 50, Sugar rechecked and had dropped again. Physician notified and received orders to increase fluids to 100 then give one more fluid bolus. Inbetween sugar checks, patient was asked what she had taken prior to coming to hospital and patient was unable to answer. Patient sugar then became 87. Patient is A&Ox4 at this time. Then asked what she had taken prior to coming to hospital and patient stated that she had double her metformin dose because her doctor told her to when her sugar gets a bit high. Patient has not experienced any nausea or vomiting all shift, physician notified and new orders received for a carb consistent diet and to allow patient to eat. Patient received a sandwich, expressed her thanks and is now sitting up in bed watching tv.
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
--- NOTE | 2025-08-31 14:08 | P.PN_ITS ---
Subjective 2 Subjective: She reports doing all right, although is somewhat somnolent this morning. Vitals/I&O/Wt Last Vital Signs Temp 98.0 F 08/31/25 09:00 Pulse 72 08/31/25 12:00 Resp 25 H 08/31/25 12:00 BP 133/63 08/31/25 11:30 Pulse Ox 97 08/31/25 12:00 O2 Del Method Nasal Cannula 08/31/25 11:34 O2 Flow Rate 3 08/31/25 11:34 08/30/25 08/31/25 08/31/25 22:59 06:59 14:59 Intake Total 125 / 375 125 / 500 1125 / 1125 Output Total 300 / 300 Balance -175 / 75 125 / 200 1125 / 1125 Weight last 48 hrs Weight 86 kg Weight 87.9 kg Weight 95.708 kg Physical Exam 2 Narrative: One-to-one sitter at bedside. Const: COMMON NORMALS: patient oriented x3 GENERAL APPEARANCE: cooperative HENMT: COMMON NORMALS: oropharynx normal OTHER: Missing dentition Neck/C-Spine: COMMON NORMALS: no JVD Resp: COMMON NORMALS: normal respiratory effort and clear to auscultation bilaterally AUSCULTATION: clear to auscultation bilaterally Cardio: COMMON NORMALS: no JVD, regular rhythm, S1 normal heart sound present, S2 normal heart sound present and No murmurs present (Cardio) RHYTHM: regular rhythm HEART SOUNDS: S1 normal heart sound present and S2 normal heart sound present GI: COMMON NORMALS: Normal to inspection, nondistended, normoactive bowel sounds present, Soft to palpation and non-tender PALPATION: Yes Soft to palpation Extremity: COMMON NORMALS: no joint enlargement and no pedal edema Neuro: COMMON NORMALS: patient oriented x3 and moves all extremities Skin: COMMON NORMALS: no rashes or lesions noted GENERAL SKIN EXAM: no rashes or lesions noted Urinary Catheter Management: Moy: Cath Placed During This Visit: yes Reason for Continuing Indwelling Catheter: Accurate Measurement of Urinary Output in Critically Ill Patients Urinary Catheter Date of Insertion: 08/31/25 Urinary Catheter Time of Insertion: 01:25 Data 08/31/25 03:04 08/31/25 03:04 A&P Assessment and plan 1. Bradycardia: Bradycardia resolved, normalized potassium. However, heart rate still dipping down into the 50s with resumption of her usual medications, for now we will decrease Cardizem to 120 mg, continue monitoring, monitor for risk of recurrence of bradycardia. Monitor on telemetry. 2. Hyperkalemia: Repeat testing, down to normal today 4.3. Severe bradycardia appears to have resolved. She is resumed on her previous medications with Cardizem and amiodarone. Monitor on telemetry as heart rate still dipping down into high 50s. She has been somewhat somnolent/tired today. Reassess condition and chemistry. Hypoglycemia overnight, possibly after insulin. Continues on the 5W. Reassess blood glucose. - Maintain low-potassium diet - Discontinue potassium supplements - Hold lisinopril Bradycardia : Bradycardia observed in the emergency department with heart rate in the 30s?40s. - Administered in ED: calcium gluconate 1 g (two doses), atropine 0.5 mg IV, insulin 10 units, and 250 mL of D10 - Place on ICU monitoring; continue telemetry 3. Hypoglycemia: Glucose down to 60 this morning. Possibly after received insulin. Continue D5W. Monitor blood glucose. 4. JOSE (acute kidney injury): Improving JOSE, creatinine down to 1.5 today. - Repeat chemistry labs - Hold NSAIDs; discontinue ibuprofen 5. Syncope and collapse: Reviewed TTE, normal EF, mild concentric LVH. Moderately elevated right heart and pulmonary pressures. Monitor telemetry. Hyperkalemia resolved with treatment so far with resolution of severe bradycardia. Stress test back in March 2025 with small area of prior infarct in LAD territory no significant ischemia. At that time EF 37%. 6. Falls: Obtain orthostatics. Monitor on telemetry. Multiple falls and fainting episodes starting preadmission. PT assessment Up with assistance 7. Low TSH level: TSH 0.02. - Obtain free T4 and free T3 8. Nausea and vomiting: Diarrhea and vomiting : About one week of diarrhea after laxative use; vomiting at home. - Keep NPO (no food or drink) for now - Provide nausea medication (antiemetic) - Obtain respiratory viral panel Possible NSAID-related gastritis : History of ibuprofen use; dark black stools reported in the past. - Hold NSAIDs; discontinue ibuprofen 9. Suicidal ideation: Appreciate psychiatry consultation, discussed with psychiatrist. Psychiatry is considering adjustment of her medications. Plan: Burning chest discomfort resolved. - Reviewed troponin and electrocardiogram (ECG) series - Reviewed transthoracic echocardiogram (TTE) Tobacco use : Current smoker (~5 cigarettes/day); attempted cessation previously. - Counseled on smoking cessation options (patches/gum/lozenges mentioned) HIV: Continue Biktarvy A-fib: Hold Eliquis for now, switch over to therapeutic Lovenox. Continue amiodarone, diltiazem. Monitor for risk of recurrence of bradycardia. - Coronary artery disease with prior myocardial infarction: Continue aspirin, beta-home, statin - Combined systolic and diastolic heart failure - Chronic kidney disease - Pulmonary hypertension - Obstructive sleep apnea - Chronic obstructive pulmonary disease (COPD) - Hypertension - Current tobacco use Follow-up : Administrative and care coordination items discussed. - Code status: Full code - Emergency contact: Friend Slime Edmondson - Continue breathing treatments as requested PDMP PDMP Reviewed: Not Reviewed Attestations 2 Medical Necessity Statement*: Continue admission for assessment management of bradycardia, syncopal events preadmission, suicidal ideation. Diagnoses Bradycardia R00.1 Hyperkalemia E87.5 Hypoglycemia E16.2 JOSE (acute kidney injury) N17.9 Syncope and collapse R55 Falls R29.6 Low TSH level R79.89 Nausea and vomiting R11.2 Suicidal ideation R45.851
--- NOTE | 2025-08-31 21:58 | PC.NURSE ---
BS [address] Trammell, no changes, keep infusing D5w and cont prev orders.
[2025-09-01] VITALS (14 sets, daily range): BP systolic 112–168; BP diastolic 79–90; PULSE 61–98; RESP 15–18; TEMP 36.4–37; O2SAT 86–98
[2025-09-01] MEDS: pantoprazole 40 mg SDV IVP (04:10)
[2025-09-01] MEDS: dilTIAZem ER (24HR) 120 mg Capsule PO (04:11)
[2025-09-01 05:07] LABS: Hematocrit 39.3 % (36-47); Hemoglobin 12.50 g/dL (11.27-16.99); Mean Corpuscular HGB Conc 31.8 g/dL (30-55); Mean Corpuscular Hemoglobin 31.4 pg (27-33); Mean Corpuscular Volume 98.7 fl (85-98); Nucleated Red Blood Cells % 0 %; Platelet Count 164 10^3/cmm (157-399); Red Blood Count 3.98 10^6/uL (3.85-5.65); White Blood Count 8.53 10^3/uL (3.29-11.43)
[2025-09-01 06:27] LABS: Alanine Aminotransferase 14 U/L (0-33); Albumin Level 4.2 g/dL (3.5-5.2); Alkaline Phosphatase 99 U/L (35-105); Anion Gap 13.4 (5-19); Aspartate Amino Transferase 15 U/L (0-32); Blood Urea Nitrogen 15 mg/dL (8-23); Calcium 9.6 mg/dL (8.5-10.5); Carbon Dioxide 25 mmol/L (22-29); Chloride 106 mmol/L (98-107); Globulin 3.0 g/dL (1.3-4.6); Glucose 130 mg/dL (65-115); Osmolality Calculated 293 mOsm/kg (285-295); Potassium 4.4 mmol/L (3.5-5.1); Sodium 140 mmol/L (136-145); Total Protein 7.2 g/dL (6.6-8.7)
--- NOTE | 2025-09-01 09:07 | PC.SOCIAL ---
*IMM* Patient received Important message from Medicare. Copy initialled, dated and placed in chart.
--- NOTE | 2025-09-01 17:31 | PM.DCS ---
Discharge Providers Date of Admission: 08/30/25 14:23 Date of Discharge: September 01, 2025 Attending Provider at Admission: Patrick Mcelroy Attending Provider at Discharge: Patrick Mcelroy Primary Care Provider: Alexa Ayers APN Diagnoses at Discharge Discharge Diagnosis 1. Bradycardia: 2. Hyperkalemia: 3. Hypoglycemia: 4. JOSE (acute kidney injury): 5. Syncope and collapse: 6. Falls: 7. Low TSH level: 8. Nausea and vomitin. Suicidal ideation: Reason for Visit Reason for Visit: Fall, Pain all over Brief History: Katie Andrews is a 69 year old patient with a history of coronary artery disease with prior myocardial infarction, combined systolic and diastolic heart failure, atrial fibrillation on apixaban (Eliquis), chronic kidney disease, pulmonary hypertension, obstructive sleep apnea, chronic obstructive pulmonary disease (COPD), and hypertension presents after multiple falls and fainting episodes occurring today. Reports a burning type of chest discomfort earlier today. Endorses vomiting at home and approximately one week of diarrhea after taking a laxative (Paz). Had severe chills two days ago. Notes intermittent leg swelling in general, but none currently. Reports dark black stools in the past. Lives alone. Uses home oxygen (typically prescribed 2 L; turned it up when symptoms worsened). Does not use continuous positive airway pressure (CPAP) at night. States chronically poor appetite. Smokes about five cigarettes per day, drinks a capful of tequila in orange juice once daily, and uses marijuana only for recreational substances. Denies medication allergies. Suicidal ideation: Reports that several days ago she felt like she should no longer be alive, although has not had any active plan or suicidal attempt reported to the nurse on screening questionnaire. Discussed with psychiatrist, will see her in consultation. Appreciate. Hospital Course Hospital Course She was admitted and received treatment for severe hyperkalemia with telemetry monitoring, received calcium gluconate, insulin dextrose, albuterol, Kayexalate, with repeat chemistry showing improving potassium. With resolution of hyperkalemia severe bradycardia resolved. She had no further falls or syncopal episodes, and has been ambulating well around the room to and from the bathroom, etc. Nausea and vomiting has resolved. She has been requiring small amount of oxygen, possibly secondary to aspiration pneumonitis. Borderline cardiomegaly was noted on initial chest x-ray, echocardiogram was obtained and ejection fraction found to be normal 65%, mild concentric LVH, normal RV size and systolic function. Mild MVR. Moderately elevated right heart and pulmonary pressures. Mild oxygen requirement on home oxygen evaluation may also be due to pulmonary hypertension. During initial evaluation she had also expressed symptoms of depression, thoughts of not wanting to live any longer, was assessed by psychiatry. Her Zoloft dose was adjusted up to 150 mg, with reassessment by psychiatry at discharge it is recommended she follow-up on outpatient side for further reassessment and treatment. TSH incidentally noted low with minimal elevation of free T4 and free T3. Please follow-up thyroid studies at next visit. Physical Exam Const: COMMON NORMALS: patient oriented x3 and alert GENERAL APPEARANCE: cooperative ORIENTATION/CONSCIOUSNESS: Yes awake HENMT: COMMON NORMALS: oropharynx normal Neck/C-Spine: COMMON NORMALS: no JVD Resp: COMMON NORMALS: normal respiratory effort and clear to auscultation bilaterally AUSCULTATION: clear to auscultation bilaterally Cardio: COMMON NORMALS: no JVD, regular rhythm, S1 normal heart sound present, S2 normal heart sound present and No murmurs present (Cardio) RHYTHM: regular rhythm HEART SOUNDS: S1 normal heart sound present and S2 normal heart sound present GI: COMMON NORMALS: Normal to inspection, nondistended, normoactive bowel sounds present, Soft to palpation and non-tender PALPATION: Yes Soft to palpation Extremity: COMMON NORMALS: no joint enlargement and no pedal edema Neuro: COMMON NORMALS: patient oriented x3 and moves all extremities SENSORIUM/ORIENTATION: Yes alert Skin: COMMON NORMALS: no rashes or lesions noted GENERAL SKIN EXAM: no rashes or lesions noted Urinary Catheter Management: Moy: Cath Placed During This Visit: yes Reason for Continuing Indwelling Catheter: Not indwelling catheter Urinary Catheter Date of Insertion: 08/31/25 Urinary Catheter Time of Insertion: 01:25 Discharge Data Studies Completed and Pending Completed Studies During Hospitalization Category Date Time Status CT cervical spin wo con* [id number] Stat Cat Scan 08/30/25 11:[address] head wo con* [id number] Stat Cat Scan 08/30/25 11:[address] lumbar spine wo con* [id number] Stat Cat Scan 08/30/25 11:[address] thoracic spin wo con* [id number] Stat Cat Scan 08/30/25 11:47 Completed XR chest 1V portable [id number] Stat Exams 08/30/25 11:39 Completed XR elbow RT min 3V* [id number] Stat Exams 08/30/25 11:39 Completed XR pelvis 1-2V* [id number] Stat Exams 08/30/25 11:47 Completed CV. echo limited [id number] Routine Ultrasound 08/30/25 15:15 Completed Pending at discharge Category Date Time Status Complete Blood Count w/Auto AM LABS Lab 09/02/25 04:00 Ordered Comprehensive Metabolic Panel AM LABS Lab 09/02/25 04:00 Ordered Radiology Impressions Cervical Spine CT 08/30/25 11:39 IMPRESSION: 1. No acute fracture, dislocation or gross destructive bony process demonstrated cervical spine. 2. Cervical spondylosis with similar findings on previous exam. 3. Stable appearance of cervical spine compared to previous exam. 4. Bilateral carotid artery calcification. Chest X-Ray 08/30/25 11:39 IMPRESSION: 1. Borderline cardiomegaly. Mild degree central pulmonary venous congestion may be present. No overt failure pattern demonstrated. 2. No pleural effusion. 3. No lobar pneumonia. Elbow X-Ray 08/30/25 11:39 IMPRESSION: 1. No acute fracture, dislocation or destructive bony process demonstrated of the right elbow. 2. Mild osteoarthrosis of right elbow. Head CT 08/30/25 11:39 IMPRESSION: 1. No acute intracranial process demonstrated. 2. No acute skull fracture. 3. Some chronic small-vessel ischemic change again noted. Lumbar Spine CT 08/30/25 11:47 IMPRESSION: No acute lumbar spine fracture. Pelvis X-Ray 08/30/25 11:47 IMPRESSION: 1. No acute fracture, dislocation or destructive bony process demonstrated on frontal radiograph of the pelvis. 2. Some degenerative changes of the lower lumbar spine. Thoracic Spine CT 08/30/25 11:47 IMPRESSION: No acute thoracic spine fracture. Laboratory Results WBC 8.53 10^3/uL (3.29-11.43) 09/01/25 04:51 RBC 3.98 10^6/uL (3.85-5.65) 09/01/25 04:51 Hgb 12.50 g/dL (11.27-16.99) 09/01/25 04:51 Hct 39.3 % (36-47) 09/01/25 04:51 MCV 98.7 fl (85-98) H 11/28/25 04:51 MCH 31.4 pg (27-33) 09/01/25 04:51 MCHC 31.8 g/dL (30-55) 09/01/25 04:51 RDW 15.3 % (12.1-15.1) H 09/01/25 04:51 Plt Count 164 10^3/cmm (157-399) 09/01/25 04:51 MPV 9.7 fL (7.4-10.4) 09/01/25 04:51 Neut % (Auto) 72.5 % 09/01/25 04:51 Lymph % (Auto) 16.4 % 09/01/25 04:51 [place] % (Auto) 7.9 % 09/01/25 04:51 Eos % (Auto) 2.0 % 09/01/25 04:51 Baso % (Auto) 0.6 % 09/01/25 04:51 Neut # (Auto) 6.19 10^3/uL (1.8-7.7) 09/01/25 04:51 Lymph # (Auto) 1.4 10^3/uL (0.8-4.8) 09/01/25 04:51 [place] # (Auto) 0.7 10^3/uL (0.2-0.9) 09/01/25 04:51 Eos # (Auto) 0.2 10^3/uL (0.0-0.8) 09/01/25 04:51 Baso # (Auto) 0.1 10^3/uL (0.0-0.1) 09/01/25 04:51 Nucleated RBC % (auto) 0 % 09/01/25 04:51 Nucleated RBCs # 0.0 /100WBC 09/01/25 04:51 PT 17.60 SECONDS (12.1-14.9) H 08/30/25 12:32 INR 1.36 (0.8-1.2) H 08/30/25 12:32 Specimen Type Arterial 08/30/25 11:50 Sample Site Brachial, left 08/30/25 11:50 ABG pH 7.37 (7.35-7.45) 08/30/25 11:50 ABG pCO2 44.5 mmHg (35-45) 08/30/25 11:50 ABG pO2 66.8 mmHg (80.0-100.0) L 08/30/25 11:50 ABG HCO3 25.7 mmol/L (22-26) 08/30/25 11:50 ABG O2 Saturation 93.4 08/30/25 11:50 ABG Base Excess 0.1 mmol/L (-2.0-2.0) 08/30/25 11:50 Eddie Test Pos 08/30/25 11:50 A-a O2 Gradient 3.8 mmHg (5-10) L 08/30/25 11:50 Hematocrit 39.9 % (37-47) 08/30/25 11:50 Hgb O2 Saturation 90.0 % (95-100) L 08/30/25 11:50 Carboxyhemoglobin 2.5 %THgb (0.4-20.1) 08/30/25 11:50 Methemoglobin 1.1 % (0.4-1.5) 08/30/25 11:50 Total Hemoglobin 13.0 g/dL (12-16) 08/30/25 11:50 Sodium 139.0 mmol/L (131-143) 08/30/25 11:50 Potassium 8.3 mmol/L (3.5-5.0) H 08/30/25 11:50 Glucose 136.0 mg/dL (70-115) H 08/30/25 11:50 Ionized Calcium 1.2 mmol/L (1.1-1.4) 08/30/25 11:50 O2 Delivery Device Nc 08/30/25 11:50 O2 Liters/Min 3.0 % 08/30/25 11:50 Commercial Specialist ID [place] 08/30/25 11:50 Sodium 140 mmol/L (136-145) 09/01/25 05:47 Potassium 4.4 mmol/L (3.5-5.1) 09/01/25 05:47 Chloride 106 mmol/L (98-107) 09/01/25 05:47 Carbon Dioxide 25 mmol/L (22-29) 09/01/25 05:47 Anion Gap 13.4 (5-19) 09/01/25 05:47 BUN 15 mg/dL (8-23) 09/01/25 05:47 Creatinine 1.0 mg/dL (0.5-0.9) H 09/01/25 05:47 GFR Calculation 55.3 mL/min (90-130) L 09/01/25 05:47 Glucose 130 mg/dL (65-115) H 09/01/25 05:47 POC Glucose 101 mg/dL (70-110) 09/01/25 16:22 Calculated Osmolality 293 mOsm/kg (285-295) 09/01/25 05:47 Lactate 1.0 mmol/L (0.5-2.2) 08/31/25 04:07 Calcium 9.6 mg/dL (8.5-10.5) 09/01/25 05:47 Magnesium 3.0 mg/dL (1.7-2.3) H 08/31/25 03:04 Total Bilirubin 0.5 mg/dL (0.15-1.2) 09/01/25 05:47 AST 15 U/L (0-32) 09/01/25 05:47 ALT 14 U/L (0-33) 09/01/25 05:47 Alkaline Phosphatase 99 U/L (35-105) 09/01/25 05:47 Troponin T Baseline < 6 ng/L (0-10) 08/30/25 12:00 Troponin T 120 Minute < 6.0 ng/L (0-10) 08/30/25 14:12 Delta Troponin T 0 ABS# (0-10) 08/30/25 14:12 Troponin T Hi Sens 6Hr < 6.0 ng/L (0-10) 08/30/25 18:07 Troponin T Hi Sens 6Hr Delta 0 ng/L (0-12) 08/30/25 18:07 Total Protein 7.2 g/dL (6.6-8.7) 09/01/25 05:47 Albumin 4.2 g/dL (3.5-5.2) 09/01/25 05:47 Globulin 3.0 g/dL (1.3-4.6) 09/01/25 05:47 Lipase 73 U/L (13-60) H 08/30/25 12:00 TSH 0.02 uIU/mL (0.27-4.20) L 08/30/25 12:00 Free T4 2.33 ng/dL (0.82-1.77) H 08/30/25 12:32 Free T3 5.3 PG/ML (2.0-4.4) H 08/30/25 12:32 Urine Color Yellow (Yellow) 08/31/25 Urine Appearance Cloudy (CLEAR) A 08/31/25 Urine pH 7.5 (5-7) 08/31/25 Ur Specific [place] 1.020 (1.005-1.030) 08/31/25 Urine Protein Trace (Negative) A 08/31/25 Urine Glucose (UA) 1+ (Normal) H 08/31/25 Urine Ketones Negative (Negative) 08/31/25 Urine Blood Negative (Negative) 08/31/25 Urine Nitrate Negative (Negative) 08/31/25 Urine Bilirubin Negative (Negative) 08/31/25 Urine Urobilinogen 0.2 mg/dL (Negative) 08/31/25 Ur Leukocyte Esterase Negative (Negative) 08/31/25 Urine RBC 0-2 /hpf (0-2) 08/31/25 Urine WBC 0-5 /hpf (0-5) 08/31/25 Ur Squamous Epith Cells 0-5 /hpf (0-5) 08/31/25 Amorphous Sediment Not Reportable 08/31/25 Urine Bacteria 4+ /hpf (NONE) H 08/31/25 Hyaline Casts 7.42 /lpf 08/31/25 Adenovirus (PCR) Not detected (NOT DETECT) 08/30/25 15:55 C. pneumoniae DNA (PCR) Not detected (NOT DETECT) 08/30/25 15:55 Coronavirus 229E (PCR) Not detected (NOT DETECT) 08/30/25 15:55 Human Metapneumovir PCR Not detected (NOT DETECT) 08/30/25 15:55 Influenza A (H1) PCR Not detected (NOT DETECT) 08/30/25 15:55 Influ A (H1/09) PCR Not detected (NOT DETECT) 08/30/25 15:55 Influenza A (H3) PCR Not detected (NOT DETECT) 08/30/25 15:55 Influenza Type A (PCR) Not detected (NOT DETECT) 08/30/25 15:55 Influenza Type B (PCR) Not detected (NOT DETECT) 08/30/25 15:55 M. pneumoniae (PCR) Not detected (NOT DETECT) 08/30/25 15:55 Parainfluenza 1 (PCR) Not detected (NOT DETECT) 08/30/25 15:55 Parainfluenza 2 (PCR) Not detected (NOT DETECT) 08/30/25 15:55 Parainfluenza 3 (PCR) Not detected (NOT DETECT) 08/30/25 15:55 Parainfluenza 4 (PCR) Not detected (NOT DETECT) 08/30/25 15:55 RSV Type A (PCR) Not detected (NOT DETECT) 08/30/25 15:55 RSV Type B (PCR) Not detected (NOT DETECT) 08/30/25 15:55 Entero/Rhino (PCR) Not detected (NOT DETECT) 08/30/25 15:55 SARS-CoV-2 (PCR) Not detected (NOT DETECT) 08/30/25 15:55 Vitals Last Vital Signs Temp 97.7 F 09/01/25 15:48 Pulse 90 09/01/25 16:00 Resp 16 09/01/25 16:00 BP 160/79 09/01/25 15:48 Pulse Ox 93 09/01/25 16:00 O2 Del Method Nasal Cannula 09/01/25 16:00 O2 Flow Rate 2 09/01/25 16:00 Discharge Plan Discharge Patient Disposition: Home Condition: Stable Prescriptions: Continued Eliquis 5 mg tablet 5 mg PO BID aripiprazole [Abilify] 15 mg tablet 15 mg PO DAILY atorvastatin 80 mg tablet 80 mg PO QPM albuterol sulfate 90 mcg/actuation HFA aerosol inhaler 2 puff inhalation QID PRN (Reason: shortness of breath or wheezing) fluticasone propionate 50 mcg/actuation spray,suspension 1 spray INTRANASAL DAILY Trelegy Ellipta 100-62.5-25 mcg blister with device 1 inh INHALATION DAILY aspirin 81 mg tablet,delayed release (DR/EC) 81 mg PO DAILY Qty: 30 0RF famotidine 40 mg tablet 40 mg PO BID Qty: 30 0RF metoprolol succinate 50 mg tablet extended release 24 hr 50 mg PO BID diltiazem HCl 300 mg Capsule,Extended Release 24hr 300 mg PO DAILY Qty: 30 0RF nicotine (polacrilex) [Nicorette] 2 mg gum 2 mg buccal Q8H PRN (Reason: nicotine cravings) Qty: 20 0RF cetirizine 10 mg tablet 10 mg PO DAILY PRN (Reason: Allergy Symptoms) Biktarvy 50-200-25 mg tablet 1 tab PO BEDTIME tramadol 50 mg tablet 50 - 100 mg PO Q4H MDD 6 tabs PRN (Reason: Pain) acetaminophen 500 mg Tablet 1,000 mg PO Q6H PRN (Reason: Pain) methocarbamol 750 mg tablet 750 mg PO TID PRN (Reason: muscle spasm ) gabapentin 300 mg capsule 600 mg PO BID Janumet 50-500 mg tablet 1 tab PO BID nitroglycerin [Nitrostat] 0.4 mg Tablet, Sublingual 0.4 mg SUBLINGUAL Q5M PRN (Reason: Chest Pain) 30 Days Qty: 30 0RF Rx Instructions: do not exceed 3 doses per episode furosemide 20 mg tablet 20 mg PO QAM PRN (Reason: weight gain) Qty: 60 0RF amiodarone 200 mg tablet 200 mg PO DAILY glimepiride 2 mg tablet See Rx Instructions .ROUTE .COMPLEX Rx Instructions: Take 4 mg with breakfast and 2 mg with dinner metformin 500 mg tablet 500 mg PO QAM isosorbide mononitrate 60 mg tablet extended release 24 hr 60 mg PO DAILY bupropion HCl 300 mg tablet extended release 24 hr 300 mg PO QAM Changed sertraline 100 mg tablet 150 mg PO DAILY Qty: 30 30RF Held dapagliflozin propanediol [Farxiga] 10 mg tablet 10 mg PO DAILY Qty: 30 3RF Hold Instructions: Resume on 09/08/25. lisinopril 10 mg tablet 10 mg PO BID Hold Instructions: Resume on 09/08/25. Mounjaro 10 mg/0.5 mL pen injector 10 mg SUBCUT Q7D Hold Instructions: Resume on 09/08/25. Rx Instructions: Thursday' Discontinued potassium chloride 8 mEq tablet extended release 16 meq PO BID celecoxib 100 mg capsule 100 mg PO DAILY Discharge Order = DC NOW: Discharge Order (Routine); Ordered 09/01/25 Ordered By: Patrick Mcelroy Referrals: Terry Guajardo DO [Staff Physician, Psychiatry] Referral Note: We have notified your physician's clinic of the need for a follow-up appointment to be scheduled. If you have not heard from them within the next 2 business days, please call them directly. Alexa Ayers APN [Primary Care Provider, Nurse Practitioner] Referral Note: We have notified your physician's clinic of the need for a follow-up appointment to be scheduled. If you have not heard from them within the next 2 business days, please call them directly. Discharge Activity: Oxygen as instructed Patient Instructions: Bradycardia, Opioid Safety, Patient Portal & [place] Instructions Activity Restrictions/Additional Instructions: Discontinue potassium supplements. Hold lisinopril for next week. Please stop celecoxib and avoid any other NSAIDs due to acute kidney injury. Hold Mounjaro and Farxiga for now pending reassessment of kidney function. Follow-up with your primary doctor for reassessment. Monitor blood pressures at home 3 times daily. Long-term target blood pressure is 120/80. Avoid low blood pressures, below 100 systolic and below 50 diastolic. In case of low blood pressures, hold any blood pressure medications (like lisinopril), diltiazem, metoprolol and gabapentin and contact medical provider. Continue follow-up with behavioral health provider with regards to depression. Seek medical attention in case of any worsening or new concerning symptoms. Have your primary provider recheck your kidney function, potassium level, blood glucose. Discharge Attestations Time Spent in Discharge Care*: greater than 30 min Status at Discharge: Cognitive status at discharge: cognitively intact, Behavioral status at discharge: cooperative, Quality Metrics Clinical Quality Measures [ No reported AMI, CVA or VTE this stay] Coding Level of Care Code 58461 Total time (in minutes) for Discharge: 50 Diagnoses Bradycardia R00.1 Hyperkalemia E87.5 Hypoglycemia E16.2 JOSE (acute kidney injury) N17.9 Syncope and collapse R55 Falls R29.6 Low TSH level R79.89 Nausea and vomiting R11.2 Suicidal ideation R45.851
--- NOTE | 2025-09-01 18:14 | PC.NURSE ---
Went over discharge with patient. Discussed continued medications, changed medications, held to resume 09/08/2025 medications and stop medications. Discussed follow up appointments. Patient is to call offices if patient has not heard from them within two business days which would be Thursday. Oxygen was delivered to patient and ride called a while ago. Patient verbalized understanding of all.
== END 2025-09-01 18:20 | disposition home or self-care (01) | DRG 682 ==
LOC: ER 13:41 → ICU 14:23 → MEDSURG 08-31 12:49
PROVIDERS: Family Medicine; Admitting Provider Internal Medicine; Emergency Provider Emergency Medicine; PCP Nurse Practitioner Family; Visit Provider Internal Medicine
DX: N17.9 Acute kidney failure, unspecified (principal); J69.0 Pneumonitis due to inhalation of food and vomit; I13.0 Hypertensive heart and chronic kidney disease with heart failure and stage 1 through stage 4 chronic kidney disease, or unspecified chronic kidney disease; R45.851 Suicidal ideations; I50.42 Chronic combined systolic (congestive) and diastolic (congestive) heart failure; E87.5 Hyperkalemia; R00.1 Bradycardia, unspecified; E16.2 Hypoglycemia, unspecified; R29.6 Repeated falls; I25.10 Atherosclerotic heart disease of native coronary artery without angina pectoris; N18.9 Chronic kidney disease, unspecified; I48.91 Unspecified atrial fibrillation; I27.20 Pulmonary hypertension, unspecified; G47.33 Obstructive sleep apnea (adult) (pediatric); J44.9 Chronic obstructive pulmonary disease, unspecified; Z21 Asymptomatic human immunodeficiency virus [HIV] infection status; E78.5 Hyperlipidemia, unspecified; F32.A Depression, unspecified; F17.210 Nicotine dependence, cigarettes, uncomplicated; Z95.5 Presence of coronary angioplasty implant and graft; I25.2 Old myocardial infarction; Z99.81 Dependence on supplemental oxygen; Z79.01 Long term (current) use of anticoagulants; Z79.899 Other long term (current) drug therapy; Z79.82 Long term (current) use of aspirin; Z90.49 Acquired absence of other specified parts of digestive tract; Z90.5 Acquired absence of kidney; Z90.2 Acquired absence of lung [part of]
CPT/HCPCS: 36415; 36416; 36600; 51702; 70450; 71045; 72125; 72128; 72131; 72170; 73080; 80051; 80053; 81001; 82330; 82805; 82962; 83605; 83690; 83735; 84439; 84443; 84481; 84484; 85025; 85610; 87486; 87581; 87633; 93005; 93308; 94640; 94760; 96361; 96372; 96374; 96375; 96376; 97161; 99291; 99292; J0612; J1650; J1815; J2470; J7070; J7611; J7799; J9999